=== PATIENT | male | born 1940 | race Caucasian/White ===

== ENCOUNTER 2022-09-16 10:34 | Inpatient (IN) ==
--- NOTE | 2022-09-16 11:26 | Emergency Department Note ---
Impression & Plan Abdominal ascites, Liver masses, Hyperbilirubinemia, Pulmonary edema, Elevated troponin I level, Abnormal EKG, Thrombocytopenia, Atrial fibrillation ED Provider Note NAME: SID GERONIMO AGE: 81 SEX: M : 1940 ARRIVES VIA: Walk-In INFORMANT: Patient, patient's significant other ED PROVIDER(S): Pablo Butts DO CHIEF COMPLAINT: Difficulty breathing HPI: The patient is a 81-year-old male who presented to the emergency department for an evaluation of difficulty breathing. The patient has symptoms over the course of the last week. The patient states he was seen by his primary care physician and started on an antibiotic. He had laboratory and radiographic studies done. He was told to go to the emergency department because of abn ormalities on his liver function studies. It was thought he may have pancreatitis. At this time the patient complains of a dry cough but sometimes he does not notice clear sputum. He denies having any abdominal pain or vomiting. He denies having any back pain. His significant other did notice t hat his face appears to be more swollen than usual. He does have some history of volume overload especially in the legs and takes Lasix. ROS: See above HPI for pertinent positives & negatives. A total of 10 systems reviewed and were otherwise negative. PAST MEDICAL HISTORY: See Below PAST SURGICAL HISTORY: See Below FAMILY HISTORY: See Below SOCIAL HISTORY: See Below HOME MEDICATIONS: See Below ALLERGIES: See Below VITALS: See Below PHYSICAL EXAMINATION: GENERAL: Patient is awake alert in no acute distress patient is resting comfortably and showing no signs of anxiety EYES: The conjunctivae are clear. The pupils are round and reactive. EARS, NOSE, MOUTH AND THROAT: The nose is without any evidence of any deformity. Mucous membranes are moist. Clear rhinorrhea was noted bilaterally. NECK: The neck is nontender and supple. RESPIRATORY: Diminished breath sounds are noted throughout. There was no wheezing but there was some conversational dyspnea. CARDIOVASCULAR: Regular rate and rhythm noted there no murmurs rubs or gallops normal S1 normal S2. GASTROINTESTINAL: The abdomen is soft. Abdomen is nontender. MUSCULOSKELETAL/EXTREMITIES: There is no evidence of gross deformity full range of motion is noted in the hips and shoulders. SKIN: Shielding was noted bilaterally. Skin was warm and dry. NEUROLOGIC: Patient is awake alert and oriented x 3. MEDICAL DECISION MAKING: The patient is a 81-year-old male who presented to the emergency department for an evaluation of difficulty breathing and cough. The patient's been having difficulty breathing and cough. Physical exam appear to be consistent with pulmonary edema. The patient's EKG showed some EKG changes which were not present on the previous tracing. Troponin was elevated. Initially I thought this could be secondary to a cardiac source however his LFTs were abnormal including his total and direct bilirubin. For this reason ultrasound of the right upper quadrant was obtained which appeared to be consistent with a mass in the liver. For this reason triple phase CT of the abdomen and pelvis was obtained to evaluate the liver. He appears to have ascites as well as multiple masses in the liver. The patient was treated with Lasix in the emergency department. He was reevaluated multiple times. I discussed patient's laboratory and radiographic studies with him. Clearly he may require further inpatient management to determine the cause of these multiple masses in his liver. For this reason I will discuss his case with the on-call [facility]ist. The patient was amenable to this plan. Triage Nursing notes reviewed. Prior medical records reviewed Vital Signs: reviewed and remarkable for elevated blood pressure. Differential diagnosis: Reactive airway disease, pneumonia, pneumothorax, COPD, CHF, infections, cardiac ischemia, pulmonary embolism, musculoskeletal, gastrointestinal, as well as other pathologies. ER treatment provided: See below Diagnostics interpreted by me: ECG: EKG was obtained in the emergency department. My interpretation is atrial fibrillation at 92 bpm. There were no PVCs noted. A new right bundle branch block was noted. This was compared to a tracing from November 07, 2013. The changes are new compared to the previous tracing. Cardiac Monitoring: An order was placed for continuous cardiac monitoring. The monitor shows a rate of 91 bpm with sinus rhythm. Laboratory studies: As stated above and show below. Imaging studies: See below. Radiographic imaging was reviewed by myself Consultation(s): I discussed this case with Zhanna who is on-call for the [facility]ist group. Past Med/Surg History Medical History (Updated 09/16/22 @ 16:49 by Laila Juárez PA-C) Gout Surgical History (Updated 09/16/22 @ 16:45 by Laila Juárez PA-C) History of selective laser trabeculoplasty Hx of cataract extraction Hx of hernia repair Hx of knee surgery Hx of sinus surgery Family History (Updated 09/16/22 @ 16:46 by Laila Juárez PA-C) Brother Heart disease Social History (Updated 09/16/22 @ 16:44 by Laila Juárez PA-C) Smoking Status: Former smoker Hx Alcohol Use: Yes Alcohol type: beer Alcohol type Comment: 2 cases a week Alcohol Intake Frequency: 4 or More x per/Week Hx Substance Use: No Preferred Language: Singaporean Communication Ability: Effective Feels Safe at Home: Yes Allergies Allergies Allergy/AdvReac Type Severity Reaction Status Date / Time No Known Allergies Allergy Unverified 09/16/22 16:52 Home Meds Home Medications Medication Instructions Recorded Confirmed amoxicillin 875 mg-potassium 1 tab PO DIRECTED 09/16/22 09/16/22 clavulanate 125 mg tablet azithromycin 250 mg tablet 250 mg PO DIRECTED 09/16/22 09/16/22 furosemide 40 mg tablet 40 mg PO DAILY PRN .Leg swelling, 09/16/22 09/16/22 fluid accumulation indomethacin 50 mg capsule 50 mg PO TID PRN Pain 09/16/22 09/16/22 [id number] acid 0.4 1 tab PO DAILY 09/16/22 09/16/22 mg-lycopene 300 mcg-lutein 250 mcg tablet (Centrum Silver) Results & Data (ED) Vital Signs Vital Signs - 24 hr 09/16/22 10:55 09/16/22 11:06 09/16/22 12:18 Temperature 36.6 C Temperature Source Temporal Artery Scan Pulse Rate 91 H 91 H Respiratory Rate 20 Blood Pressure 152/75 H Blood Pressure Mean 100 Blood Pressure Position Lying Pulse Oximetry 96 Oxygen Delivery Method Room Air Room Air Sepsis Recent Fever Within 48 Hours No Sepsis New/Unexplained Change in Mental Status No Sepsis Action Taken by Nursing No Action Required Home Medications Current Medication List: was personally reviewed by me Laboratory Data Attestation: I reviewed the patient's lab results. 09/16/22 11:20 09/16/22 11:20 Lab Results 09/16/22 09/16/22 09/16/22 Range/Units 11:20 11:20 11:20 WBC 3.62 L (4.8-10.8) K/ul RBC 4.36 L (4.70-6.10) M/uL Hgb 14.9 (14.0-18.0) g/dl Hct 42.7 (42.0-52.0) % MCV 97.9 (80.0-100.0) fL MCH 34.2 H (25.0-34.0) pg MCHC 34.9 (32.0-36.0) g/dL RDW Std Deviation 56.2 H (36.4-46.3) fL RDW Coeff of Irene 15.5 H (11.5-14.5) % Plt Count 65 L (130-400) K/uL MPV 10.4 (9.4-12.4) fL Immature Gran % (Auto) 0.3 % Neut % (Auto) 74.3 % Lymph % (Auto) 11.6 % [place] % (Auto) 11.0 % Eos % (Auto) 2.2 % Baso % (Auto) 0.6 % Neut # (Auto) 2.69 (1.40-6.50) K/uL Lymph # (Auto) 0.42 L (1.2-3.4) K/uL [place] # (Auto) 0.40 (0.11-0.59) K/uL Eos # (Auto) 0.08 (0-0.50) K/uL Baso # (Auto) 0.02 (0-0.2) K/uL Immature Gran # (Auto) 0.01 (0.01-0.20) K/uL Platelet Estimate Decreased L (Normal) PT Cancelled INR Cancelled APTT Cancelled PTT Ratio Cancelled VBG pH (7.36-7.41) VBG pCO2 (38-50) mmHg VBG pO2 mmHg VBG HCO3 mmol/L VBG O2 Saturation % VBG Base Excess mEq/L Sodium 134 L (136-145) mmol/L Potassium 4.1 (3.5-5.1) mmol/L Chloride 101 (98-107) mmol/L Carbon Dioxide 24 (21-32) mmol/L Anion Gap 9 (3-11) BUN 14 (6-23) mg/dl Creatinine 0.82 (0.6-1.4) mg/dl Est Cr Clr Drug Dosing 95.6 ml/min Est GFR ( Amer) 97.5 ml/min Est GFR (Non-Af Amer) 84.1 ml/min BUN/Creatinine Ratio 17.1 (10-20) Glucose 110 H (70-99(Fasting)) mg/dl Calcium 9.5 (8.5-10.1) mg/dl Magnesium 1.7 (1.7-2.4) mg/dl Total Bilirubin 7.4 H (0.2-1.0) mg/dl Direct Bilirubin 2.4 H (0-0.2) mg/dl AST 53 H (13-39) U/L ALT 26 (7-52) U/L Alkaline Phosphatase 136 H (34-104) U/L Troponin I High Sens 174.1 H* (0-20) pg/ml B-Natriuretic Peptide (0-100) pg/ml Total Protein 7.7 (6.0-8.3) gm/dl Albumin 3.5 (3.4-5.0) gm/dl Globulin 4.2 H (2.5-4.0) gm/dl Albumin/Globulin Ratio 0.8 L (0.9-2) Lipase 34 (11-82) U/L Urine Color Urine Appearance (Clear) Urine pH (4.5-7.5) Ur Specific [place] (1.000-1.030) Urine Protein (Negative) Urine Glucose (UA) (Negative) Urine Ketones (Negative) Urine Blood (Negative) Urine Nitrite (Negative) Urine Bilirubin (Negative) Urine Urobilinogen (Negative) Ur Leukocyte Esterase (Negative) Urine WBC (Auto) (0-5) /hpf Urine RBC (Auto) (0-4) /hpf U Hyaline Cast (Auto) (0-5) /lpf U Epithel Cells (Auto) (0-5) /lpf Urine Bacteria (Auto) (Negative) SARS-CoV-2 (PCR) (Negative) Influenza Type A (PCR) (Neg) Influenza Type B (PCR) (Neg) RSV (RT-PCR) (Neg) 09/16/22 09/16/22 09/16/22 Range/Units 11:20 11:20 11:22 WBC (4.8-10.8) K/ul RBC (4.70-6.10) M/uL Hgb (14.0-18.0) g/dl Hct (42.0-52.0) % MCV (80.0-100.0) fL MCH (25.0-34.0) pg MCHC (32.0-36.0) g/dL RDW Std Deviation (36.4-46.3) fL RDW Coeff of Irene (11.5-14.5) % Plt Count (130-400) K/uL MPV (9.4-12.4) fL Immature Gran % (Auto) % Neut % (Auto) % Lymph % (Auto) % [place] % (Auto) % Eos % (Auto) % Baso % (Auto) % Neut # (Auto) (1.40-6.50) K/uL Lymph # (Auto) (1.2-3.4) K/uL [place] # (Auto) (0.11-0.59) K/uL Eos # (Auto) (0-0.50) K/uL Baso # (Auto) (0-0.2) K/uL Immature Gran # (Auto) (0.01-0.20) K/uL Platelet Estimate (Normal) PT INR APTT PTT Ratio VBG pH 7.39 (7.36-7.41) VBG pCO2 40 (38-50) mmHg VBG pO2 33 mmHg VBG HCO3 24 mmol/L VBG O2 Saturation < 60.0 % VBG Base Excess -0.7 mEq/L Sodium (136-145) mmol/L Potassium (3.5-5.1) mmol/L Chloride (98-107) mmol/L Carbon Dioxide (21-32) mmol/L Anion Gap (3-11) BUN (6-23) mg/dl Creatinine (0.6-1.4) mg/dl Est Cr Clr Drug Dosing ml/min Est GFR ( Amer) ml/min Est GFR (Non-Af Amer) ml/min BUN/Creatinine Ratio (10-20) Glucose (70-99(Fasting)) mg/dl Calcium (8.5-10.1) mg/dl Magnesium (1.7-2.4) mg/dl Total Bilirubin (0.2-1.0) mg/dl Direct Bilirubin (0-0.2) mg/dl AST (13-39) U/L ALT (7-52) U/L Alkaline Phosphatase (34-104) U/L Troponin I High Sens (0-20) pg/ml B-Natriuretic Peptide 972 H (0-100) pg/ml Total Protein (6.0-8.3) gm/dl Albumin (3.4-5.0) gm/dl Globulin (2.5-4.0) gm/dl Albumin/Globulin Ratio (0.9-2) Lipase (11-82) U/L Urine Color Urine Appearance (Clear) Urine pH (4.5-7.5) Ur Specific [place] (1.000-1.030) Urine Protein (Negative) Urine Glucose (UA) (Negative) Urine Ketones (Negative) Urine Blood (Negative) Urine Nitrite (Negative) Urine Bilirubin (Negative) Urine Urobilinogen (Negative) Ur Leukocyte Esterase (Negative) Urine WBC (Auto) (0-5) /hpf Urine RBC (Auto) (0-4) /hpf U Hyaline Cast (Auto) (0-5) /lpf U Epithel Cells (Auto) (0-5) /lpf Urine Bacteria (Auto) (Negative) SARS-CoV-2 (PCR) NEGATIVE (Negative) Influenza Type A (PCR) Negative (Neg) Influenza Type B (PCR) Negative (Neg) RSV (RT-PCR) Negative (Neg) 09/16/22 09/16/22 Range/Units 13:44 14:29 WBC (4.8-10.8) K/ul RBC (4.70-6.10) M/uL Hgb (14.0-18.0) g/dl Hct (42.0-52.0) % MCV (80.0-100.0) fL MCH (25.0-34.0) pg MCHC (32.0-36.0) g/dL RDW Std Deviation (36.4-46.3) fL RDW Coeff of Irene (11.5-14.5) % Plt Count (130-400) K/uL MPV (9.4-12.4) fL Immature Gran % (Auto) % Neut % (Auto) % Lymph % (Auto) % [place] % (Auto) % Eos % (Auto) % Baso % (Auto) % Neut # (Auto) (1.40-6.50) K/uL Lymph # (Auto) (1.2-3.4) K/uL [place] # (Auto) (0.11-0.59) K/uL Eos # (Auto) (0-0.50) K/uL Baso # (Auto) (0-0.2) K/uL Immature Gran # (Auto) (0.01-0.20) K/uL Platelet Estimate (Normal) PT 16.9 H INR 1.6 H APTT 36.8 H PTT Ratio 1.3 VBG pH (7.36-7.41) VBG pCO2 (38-50) mmHg VBG pO2 mmHg VBG HCO3 mmol/L VBG O2 Saturation % VBG Base Excess mEq/L Sodium (136-145) mmol/L Potassium (3.5-5.1) mmol/L Chloride (98-107) mmol/L Carbon Dioxide (21-32) mmol/L Anion Gap (3-11) BUN (6-23) mg/dl Creatinine (0.6-1.4) mg/dl Est Cr Clr Drug Dosing ml/min Est GFR ( Amer) ml/min Est GFR (Non-Af Amer) ml/min BUN/Creatinine Ratio (10-20) Glucose (70-99(Fasting)) mg/dl Calcium (8.5-10.1) mg/dl Magnesium (1.7-2.4) mg/dl Total Bilirubin (0.2-1.0) mg/dl Direct Bilirubin (0-0.2) mg/dl AST (13-39) U/L ALT (7-52) U/L Alkaline Phosphatase (34-104) U/L Troponin I High Sens (0-20) pg/ml B-Natriuretic Peptide (0-100) pg/ml Total Protein (6.0-8.3) gm/dl Albumin (3.4-5.0) gm/dl Globulin (2.5-4.0) gm/dl Albumin/Globulin Ratio (0.9-2) Lipase (11-82) U/L Urine Color Yellow Urine Appearance Clear (Clear) Urine pH 7.0 (4.5-7.5) Ur Specific [place] 1.005 (1.000-1.030) Urine Protein Negative (Negative) Urine Glucose (UA) Negative (Negative) Urine Ketones Negative (Negative) Urine Blood Trace H (Negative) Urine Nitrite Negative (Negative) Urine Bilirubin Negative (Negative) Urine Urobilinogen Negative (Negative) Ur Leukocyte Esterase Negative (Negative) Urine WBC (Auto) 0 (0-5) /hpf Urine RBC (Auto) 0-4 (0-4) /hpf U Hyaline Cast (Auto) 0 (0-5) /lpf U Epithel Cells (Auto) 0-5 (0-5) /lpf Urine Bacteria (Auto) Negative (Negative) SARS-CoV-2 (PCR) (Negative) Influenza Type A (PCR) (Neg) Influenza Type B (PCR) (Neg) RSV (RT-PCR) (Neg) Administered Medications Discontinued Medications Furosemide (Furosemide 40 Mg/4 Ml Vial) 40 mg IV ONE ONE Stop: 09/16/22 12:48 Last Admin: 09/16/22 12:56 Dose: 40 mg Documented By: ARS Ioversol (Optiray 350 100ml) 85 ml IV ONCE ONE Stop: 09/16/22 15:02 Last Admin: 09/16/22 15:01 Dose: 85 ml Documented By: [facility] Imaging Data Radiologist's Impression: Chest X-Ray 09/16/22 11:06 XR chest 1V portable HISTORY: 81 years-old Male Dyspnea acute shortness of breath COMPARISON: None TECHNIQUE: AP view the chest FINDINGS: Cardiac silhouette is enlarged. Pulmonary vascular congestion with interstitial coarsening. Small pleural effusions with mild bibasilar densities. No pneumothorax. Degenerative changes of the shoulders and spine. Chronic left rib fractures. IMPRESSION: 1. Cardiomegaly with pulmonary vascular congestion and interstitial coarsening suggestive of pulmonary edema. 2. Small pleural effusions. ACT 112: Negative or not required by law. The above report was generated using voice recognition software. It may contain grammatical, syntax or spelling errors. Electronically signed by: Miguel Angel Harris M.D. 09/16/2022 11:47 AM Gallbladder Ultrasound 09/16/22 12:48 US gallbladder CLINICAL HISTORY: Elevated bilirubin. COMPARISON STUDY: No previous studies for comparison. FINDINGS: This exam is compromised by suboptimal penetration. No biliary ductal dilatation is identified. Common bile duct measures approximately 6 mm in caliber. No gallstones are identified. A small amount of fluid within the right upper quadrant is present. The liver is heterogeneous with with nodularity of the liver surface. Numerous hypoechoic foci within the liver measure up to 2.1 cm. Flow within the main portal vein appears diminished. This could be due to slow flow or occlusion. The pancreas is largely obscured. A 5.2 x 3.3 x 4.5 cm mass-like hypoechoic focus within the region of the pancreatic head is noted. There is no right hydronephrosis. The spleen is enlarged, measuring 14.8 cm in maximal dimension. IMPRESSION: 1. Heterogeneity of the liver suggestive of cirrhosis. Splenomegaly and ascites suggest portal hypertension. Diminished portal flow which could reflect slow flow or portal venous thrombus. Suspected hypoechoic hepatic lesions which may be neoplastic/metastatic. Liver protocol CT with and without contrast is r ecommended for further evaluation. 2. No gallstones or biliary ductal dilatation. 3. 5.2 cm mass-like hypoechoic focus within or adjacent to the pancreatic head. This could reflect a pancreatic mass or enlarged lymph node and can be assessed on CT. ACT 112: Positive. There are findings on this exam that require communication between the performing entity and the patient following Patient Test Result Info rmation Act ([place] Act 112) guidelines. Electronically signed by: Boris Kraus M.D. 09/16/2022 2:01 PM Abdomen/Pelvis CT 09/16/22 14:31 CT OF THE ABDOMEN AND PELVIS WITH AND WITHOUT CONTRAST LIVER PROTOCOL CLINICAL HISTORY: Elevated bilirubin. Abnormal ultrasound. COMPARISON STUDY: Right upper quadrant ultrasound performed earlier today. TECHNIQUE: Unenhanced, arterial and venous phase imaging was performed. Intravenous injection of 85 cc of Optiray 320 IV was uneventful. Automated exposure control was utilized for the study. A dose lowering technique was utilized adhering to the principles of ALARA. CT DOSE: 3111.63 mGycm FINDINGS: Imaged portions of the lower chest demonstrate moderate cardiomegaly with interstitial pulmonary edema and small bilateral pleural effusions. Old left-sided rib deformities are present. In addition, there is honeycombing within the lower lungs consistent with interstitial lung disease. No pneumatosis, free air or portal venous gas is present. Anasarca with body w all edema is noted. The liver is cirrhotic. Numerous hypodense hepatic masses are present. These correspond to the lesions on ultrasound. Index lateral segment lesion on axial image 25 of 98 of the portal venous phase measures 6.3 cm. An additional medial segment hepatic lesion measures 3 cm. No definite hypervascularity is noted although this could be technical and related to the phase of enhancement on the arterial phase portion of the study. There is no biliary or pancreatic ductal dilatation. The main, left and right portal veins are diminutive but likely patent. Moderate splenomegaly is noted. Small to moderate abdominal and pelvic ascites is present. Extensive collaterals are noted, including a splenorenal shunt as well as a collateral extending into a left inguinal hernia. Adrenal glands, kidneys and pancreas are normal. Possible pancreatic lesion on ultrasound is likely due to a duodenal diverticulum. There is no pancreatic ductal dilatation. Moderate aortoiliac atherosclerotic plaque is present. There is no evidence for a bowel obstruction. Colonic diverticulosis is present. There is no evidence for acute diverticulitis. The appendix is normal. Moderate bladder wall thickening. No acute fractures. No suspicious osseous lesions. IMPRESSION: 1. Cirrhosis with manifestations of portal hypertension including small to mo derate varices, splenomegaly and varices formation, including a splenorenal shunt and a collateral extending into a left inguinal hernia. Diminutive main, left and right portal veins which are likely patent. 2. Numerous hypodense hepatic masses. These are likely neoplastic and favor primary liver malignancy, such as hepatocellular carcinoma, with metastases or metastatic disease of unknown primary. Although regenerative nodules are technically within the differential, this is considered much less likely. Findings could be correlated with AFP level. Lateral segment lesions would likely be amenable to ultrasound-guided biopsy. 3. Cardiomegaly, pulmonary edema, small bilateral pleural effusions and anasarca. 4. Evidence for interstitial lung disease with honeycombing within the lung bases. 5. No bowel obstruction. No bowel wall thickening. Colonic diverticulosis without evidence for acute diverticulitis. 6. Bladder wall thickening which could be correlated with urinalysis. 7. Prominent retroperitoneal lymph nodes which are probably benign. ACT 112: Positive. There are findings on this exam that require communication between the performing entity and the patient following Patient Test Result Information Act ([place] Act 112) guidelines. Electronically signed by: Boris Kraus M.D. 09/16/2022 3:44 PM Discharge Plan Visit Data Chief Complaint: Abnormal Labs/Diagnostic Testing Stated Complaint: REF BY , ABNORMAL TEST ED Provider: Pablo Butts Discharge Problem: Abdominal ascites, Liver masses, Hyperbilirubinemia, Pulmonary edema, Elevated troponin I level, Abnormal EKG, Thrombocytopenia, Atrial fibrillation Patient Disposition: Being Evaluated by Hospitalist Forms Stand Alone Forms: My [facility] Prescriptions Prescriptions: No Action furosemide 40 mg Tablet 40 mg PO DAILY PRN (Reason: .Leg swelling, fluid accumulation) azithromycin 250 mg tablet 250 mg PO DIRECTED Rx Instructions: Do not start yet, ordered 09/15/2022 indomethacin 50 mg Capsule 50 mg PO TID PRN (Reason: Pain) Rx Instructions: administer with food or milk amoxicillin-pot clavulanate 875-125 mg tablet 1 tab PO DIRECTED Rx Instructions: Do not start yet, ordered 09/15/2022. Take 1 tab bid. Centrum Silver 0.4 mg-300 mcg- 250 mcg Tablet 1 tab PO DAILY Referrals Referrals: Mynor Kaminski MD [Primary Care Provider] -
--- NOTE | 2022-09-16 11:49 | XRay Report ---
XR chest 1V portable HISTORY: 81 years-old Male Dyspnea acute shortness of breath COMPARISON: None TECHNIQUE: AP view the chest FINDINGS: Cardiac silhouette is enlarged. Pulmonary vascular congestion with interstitial coarsening. Small ple ural effusions with mild bibasilar densities. No pneumothorax. Degenerative changes of the shoulders and spine. Chronic left rib fractures. IMPRESSION: 1. Cardiomegaly with pulmonary vascular congestion and interstitial coarsening suggestive of pulmonar y edema. 2. Small pleural effusions. ACT 112: Negative or not required by law. The above report was generated using voice recognition software. It may contain grammatical, syntax o r spelling errors. Electronically signed by: Miguel Angel Harris M.D. 09/16/2022 11:47 AM
[2022-09-16 11:55] LABS: Base Excess VBG -0.7 mEq/L; HCO3 VBG 24 mmol/L; Oxygen Saturation VBG < 60.0 %; PCO2 VBG 40 mmHg (38-50); PO2 VBG 33 mmHg; pH VBG 7.39 (7.36-7.41)
[2022-09-16 12:21] LABS: Hematocrit (blood only) 42.7 % (42.0-52.0); Hemoglobin 14.9 g/dl (14.0-18.0); White Blood Count 3.62 K/ul (4.8-10.8)
[2022-09-16 12:24] LABS: Albumin Globulin Ratio 0.8 (0.9-2); Albumin Level 3.5 gm/dl (3.4-5.0); BUN Creatinine Ratio 17.1 (10-20); Bilirubin Direct 2.4 mg/dl (0-0.2); Bilirubin,Total 7.4 mg/dl (0.2-1.0); Calcium 9.5 mg/dl (8.5-10.1); Creatinine Clr Calc Pharmacy 95.6 ml/min; Est GFR (African American) 97.5 ml/min; Est GFR (Non-African American) 84.1 ml/min; Globulin 4.2 gm/dl (2.5-4.0); Magnesium 1.7 mg/dl (1.7-2.4); Potassium 4.1 mmol/L (3.5-5.1); Total Protein 7.7 gm/dl (6.0-8.3)
[2022-09-16 12:30] LABS: Basophils # (auto) 0.02 K/uL (0-0.2); Basophils % (auto) 0.6 %; Eosinophils # (auto) 0.08 K/uL (0-0.50); Eosinophils % (auto) 2.2 %; Immature Granulocytes # (auto) 0.01 K/uL (0.01-0.20); Immature Granulocytes % (auto) 0.3 %; Lymphocytes # (auto) 0.42 K/uL (1.2-3.4); Lymphocytes % (auto) 11.6 %; Mean Corpuscular Hemoglobin 34.2 pg (25.0-34.0); Mean Corpuscular Hgb Conc 34.9 g/dL (32.0-36.0); Mean Corpuscular Volume 97.9 fL (80.0-100.0); Mean Platelet Volume 10.4 fL (9.4-12.4); Neutrophils # (auto) 2.69 K/uL (1.40-6.50); Neutrophils % (auto) 74.3 %; Platelet Count 65 K/uL (130-400); Platelet Estimate Decreased (Normal); RDW Coefficient of Variation 15.5 % (11.5-14.5); RDW Standard Deviation 56.2 fL (36.4-46.3); Red Blood Count 4.36 M/uL (4.70-6.10)
[2022-09-16 12:36] LABS: Troponin I High Sensitivity 174.1 pg/ml (0-20)
[2022-09-16] MEDS ORDERED: FUROSEMIDE 40 MG/4 ML VIAL IV ONE (12:47)
[2022-09-16 13:43] LABS: Influenza A virus by PCR Negative (Neg); Influenza B virus by PCR Negative (Neg); RSV by PCR Negative (Neg); SARS CoV2 RNA(COVID-19) Ceph NEGATIVE (Negative)
--- NOTE | 2022-09-16 14:03 | Ultrasound Report ---
US gallbladder CLINICAL HISTORY: Elevated bilirubin. COMPARISON STUDY: No previous studies for comparison. FINDINGS: This exam is compromised by suboptimal penetration. No biliary ductal dilatation is identif ied. Common bile duct measures approximately 6 mm in caliber. No gallstones are identified. A small a mount of fluid within the right upper quadrant is present. The liver is heterogeneous with with nodul arity of the liver surface. Numerous hypoechoic foci within the liver measure up to 2.1 cm. Flow with in the main portal vein appears diminished. This could be due to slow flow or occlusion. The pancreas is largely obscured. A 5.2 x 3.3 x 4.5 cm mass-like hypoechoic focus within the region of the pancre atic head is noted. There is no right hydronephrosis. The spleen is enlarged, measuring 14.8 cm in ma ximal dimension. IMPRESSION: 1. Heterogeneity of the liver suggestive of cirrhosis. Splenomegaly and ascites suggest portal hypert ension. Diminished portal flow which could reflect slow flow or portal venous thrombus. Suspected hyp oechoic hepatic lesions which may be neoplastic/metastatic. Liver protocol CT with and without contra st is recommended for further evaluation. 2. No gallstones or biliary ductal dilatation. 3. 5.2 cm mass-like hypoechoic focus within or adjacent to the pancreatic head. This could reflect a pancreatic mass or enlarged lymph node and can be assessed on CT. ACT 112: Positive. There are findings on this exam that require communication between the performing entity and the patient following Patient Test Result Information Act ([place] Act 112) guidelines. Electronically signed by: Boris Kraus M.D. 09/16/2022 2:01 PM
[2022-09-16 14:06] LABS: Appearance Urine Clear (Clear); Bacteria Urine Automated Negative (Negative); Bilirubin Urine Negative (Negative); Blood Urine Trace (Negative); Cast Urine Automated 0 /lpf (0-5); Color Urine Yellow; Epithelial Cell Urine Auto 0-5 /lpf (0-5); Glucose Urine UA Negative (Negative); Ketones Urine Negative (Negative); Leukocyte Esterase Urine Negative (Negative); Nitrite Urine Negative (Negative); Protein Urine Negative (Negative); RBC Urine Automated 0-4 /hpf (0-4); Specific Gravity Urine 1.005 (1.000-1.030); Urobilinogen Urine Negative (Negative); WBC Urine Automated 0 /hpf (0-5)
[2022-09-16] MEDS ORDERED: OPTIRAY 350 100ml IV ONE (15:01)
--- NOTE | 2022-09-16 15:45 | CT Scan Report ---
CT OF THE ABDOMEN AND PELVIS WITH AND WITHOUT CONTRAST LIVER PROTOCOL CLINICAL HISTORY: Elevated bilirubin. Abnormal ultrasound. COMPARISON STUDY: Right upper quadrant ultrasound performed earlier today. TECHNIQUE: Unenhanced, arterial and venous phase imaging was performed. Intravenous injection of 85 c c of Optiray 320 IV was uneventful. Automated exposure control was utilized for the study. A dose l owering technique was utilized adhering to the principles of ALARA. CT DOSE: 3111.63 mGycm FINDINGS: Imaged portions of the lower chest demonstrate moderate cardiomegaly with interstitial pulm onary edema and small bilateral pleural effusions. Old left-sided rib deformities are present. In add ition, there is honeycombing within the lower lungs consistent with interstitial lung disease. No pneumatosis, free air or portal venous gas is present. Anasarca with body wall edema is noted. The liver is cirrhotic. Numerous hypodense hepatic masses are present. These correspond to the lesions o n ultrasound. Index lateral segment lesion on axial image 25 of 98 of the portal venous phase measure s 6.3 cm. An additional medial segment hepatic lesion measures 3 cm. No definite hypervascularity is noted although this could be technical and related to the phase of enhancement on the arterial phase portion of the study. There is no biliary or pancreatic ductal dilatation. The main, left and right p ortal veins are diminutive but likely patent. Moderate splenomegaly is noted. Small to moderate abdom inal and pelvic ascites is present. Extensive collaterals are noted, including a splenorenal shunt as well as a collateral extending into a left inguinal hernia. Adrenal glands, kidneys and pancreas are normal. Possible pancreatic lesion on ultrasound is likely due to a duodenal diverticulum. There is no pancreatic ductal dilatation. Moderate aortoiliac atherosclerotic plaque is present. There is no e vidence for a bowel obstruction. Colonic diverticulosis is present. There is no evidence for acute di verticulitis. The appendix is normal. Moderate bladder wall thickening. No acute fractures. No suspic ious osseous lesions. IMPRESSION: 1. Cirrhosis with manifestations of portal hypertension including small to moderate varices, splenome tana and varices formation, including a splenorenal shunt and a collateral extending into a left ingu inal hernia. Diminutive main, left and right portal veins which are likely patent. 2. Numerous hypodense hepatic masses. These are likely neoplastic and favor primary liver malignancy, such as hepatocellular carcinoma, with metastases or metastatic disease of unknown primary. Although regenerative nodules are technically within the differential, this is considered much less likely. F indings could be correlated with AFP level. Lateral segment lesions would likely be amenable to ultra sound-guided biopsy. 3. Cardiomegaly, pulmonary edema, small bilateral pleural effusions and anasarca. 4. Evidence for interstitial lung disease with honeycombing within the lung bases. 5. No bowel obstruction. No bowel wall thickening. Colonic diverticulosis without evidence for acute diverticulitis. 6. Bladder wall thickening which could be correlated with urinalysis. 7. Prominent retroperitoneal lymph nodes which are probably benign. ACT 112: Positive. There are findings on this exam that require communication between the performing entity and the patient following Patient Test Result Information Act ([place] Act 112) guidelines. Electronically signed by: Boris Kraus M.D. 09/16/2022 3:44 PM
[2022-09-16 15:48] LABS: INR 1.6 (0.9-1.1); Partial Thromboplastin Ratio 1.3; Partial Thromboplastin Time 36.8 Seconds (21.0-31.0); Prothrombin Time 16.9 Seconds (9.0-12.0)
--- NOTE | 2022-09-16 16:26 | History & Physical Report ---
Date of Service September 16, 2022 Assessment & Plan (1) Anasarca: (2) Liver masses: (3) Hyperbilirubinemia: (4) Pulmonary edema: (5) Afib: (6) Elevated troponin I level: (7) Abnormal EKG: (8) Thrombocytopenia: (9) Alcohol abuse: Plan This is a 81-year-old male with significant past medical history of gout who presents to ER secondary to referral by PCP to abnormal labs. Patient reported ongoing shortness of breath for approximately the past 6 weeks. He was seen by PCP on 09/15 and underwent lab work which revealed hyperbilirubinemia and elevated BNP. He also was hypoxic with exertion in outpatient clinic and was referred to ED. In ED patient had bilirubin of 7.4, direct 2.4, AST 53 and alk phos 136. He did have elevated BNP at 972. His platelet count was 67 and had elevated troponin at 174.1. EKG revealed new onset atrial fibrillation, rate controlled. CT a/p: 1. Cirrhosis with manifestations of portal hypertension including small to moderate varices, splenomegaly and varices formation, including a splenorenal shunt and a collateral extending into a left inguinal hernia. Diminutive main, left and right portal veins which are likely patent. 2. Numerous hypodense hepatic masses. These are likely neoplastic and favor primary liver malignancy, such as hepatocellular carcinoma, with metastases or metastatic disease of unknown primary. Although regenerative nodules are technically within the differential, this is considered much less likely. Findings could be correlated with AFP level. Lateral segment lesions would likely be amenable to ultrasound-guided biopsy. 3. Cardiomegaly, pulmonary edema, small bilateral pleural effusions and savi sarca. Pt has lifelong hx of alcohol abuse with 2 cases of beer/wk. Anasarca Pulmonary Edema Elevated LFTS Hyperbilirubinemia Liver Masses Portal HTN on imaging admit to Tele Continue IV furosemide 40 mg twice daily Strict I's and O's, daily weights Fluid restriction 1800 mL Consult GI, meld 21 Recommend alcohol cessation Per imaging lateral liver masses likely amenable to biopsy, will defer to gastroenterology Obtain AFP, CA 199 and CEA in a.m., INR No evidence of hepatic encephalopathy on exam Rate controlled atrial fibrillation, new onset Elevated troponin Pulmonary edema Cycle troponins, patient denies chest pain, ecg w/o st t wave change Obtain echocardiogram Possible component of CHF on top of likely decompensated cirrhosis Continue diuresis, strict I's and O's Initiated Toprol tartrate 25 mg twice daily Given underlying cirrhosis and alcohol use patient likely poor candidate for anticoagulation, will defer to cardiology Thrombocytopenia likely 2/2 liver failure follow cbc hold heparin if < 50k Alcohol abuse awss protocol with gabapentin and prn IV ativan daily thiamine and folic acid alcohol cessation advised DVT ppx: SQ Heparin for now, but hold if PLT falls below < 50k DISPO: tele FULL CODE - discussed with pt and who wish to review living will paper work, defer to CM PCP: Yamilex Pt was seen and examined in collaboration with Dr. Ly, please see addendum A total of 80 minutes were spent with greater than 50% of that time face to face with the patient, personally reviewing all current laboratories, imaging studies, past medication reconciliation, outpatient chart review, and discussion with specialists to collaborate care for the patient with attending. Please see attending documentation for corrections and/or additions. History of Present Illness Chief Complaint: Referred by PCP due to abnormal labs. Primary Care Provider: Mynor Kaminski MD This is a 81-year-old male with significant past medical history of gout who presents to ER secondary to referral by PCP to abnormal labs. He was seen by KATIE yesterday secondary to generally feeling unwell for the past 6 weeks. Apparently had been sick 6 weeks ago and he has had a persistent cough and progressive shortness of breath. He also has chronic lower extremity edema. He presented to PCP and had blood work done which revealed an elevated bilirubin of 5.5, AST 58, alk phos 147, thrombocytopenia 69 and BNP at 524. He apparently was hypoxic with exertion in office but declined ER evaluation. He received IM Rocephin and was prescribed oral antibiotics. Due to elevated bilirubin he was referred to ED today. Pt reports he had covid in March of 2022 and was SOB and went away, and then it started again approx 6 weeks ago. SOB is mostly with exertion. If he is resting he does not feel SOB. is at bedside and she reports he seems SOB when he lays in bed at night. He denies orthopnea or PND, but starts he prefers the recliner at night. He further complains of sinus pain/pressure and swelling under eyes. He was blaming this on a sinus infection. denies confusion. He complains of difficulty urinating but denies dysuria, increased frequency or urgency. Pt denies f/c/s,dizziness, lightheaded, chest pain, cough, n/v/d, abd pain. + Weight gain of 25lbs in the past couple weeks. He reports feeling off balance and bad knees. He occasionally uses a cane. He fell 3 weeks ago but tripped over a carpet. Otherwise no falls. Overall appetite isn't great. reports he drinks to much so he doesn't eat. He has drank beer since he has been 14, 2 cases a week. He denies hx of hepatitis. He denies frequent use of tylenol. Allergies Allergy/AdvReac Type Severity Reaction Status Date / Time No Known Allergies Allergy Unverified 09/16/22 16:52 Home Medications Medication Instructions Recorded Confirmed Type amoxicillin 875 mg-potassium 1 tab PO DIRECTED 09/16/22 09/16/22 History clavulanate 125 mg tablet azithromycin 250 mg tablet 250 mg PO DIRECTED 09/16/22 09/16/22 History furosemide 40 mg tablet 40 mg PO DAILY PRN .Leg swelling, 09/16/22 09/16/22 History fluid accumulation indomethacin 50 mg capsule 50 mg PO TID PRN Pain 09/16/22 09/16/22 History pfjlytob-ftr-gkgzp acid 0.4 1 tab PO DAILY 09/16/22 09/16/22 History mg-lycopene 300 mcg-lutein 250 mcg tablet (Centrum Silver) Past Med/Surg History Medical History (Updated 09/16/22 @ 17:12 by Laila Juárez PA-C) Gout Surgical History (Updated 09/16/22 @ 16:45 by Laila Juárez PA-C) History of selective laser trabeculoplasty Hx of cataract extraction Hx of hernia repair Hx of knee surgery Hx of sinus surgery Family History (Updated 09/16/22 @ 16:46 by Laila Juárez PA-C) Brother Heart disease Social History (Updated 09/16/22 @ 16:44 by Laila Juárez PA-C) Smoking Status: Former smoker Hx Alcohol Use: Yes Alcohol type: beer Alcohol type Comment: 2 cases a week Alcohol Intake Frequency: 4 or More x per/Week Hx Substance Use: No Preferred Language: Indonesian Communication Ability: Effective Feels Safe at Home: Yes Review of Systems Review of Systems: All systems reviewed & are unremarkable except as noted in HPI & below Physical Exam Physical Exam: please refer to Dr. Ly addendum for physical exam findings. Results & Data Results & Data ([facility]) Vital Signs (Past 12 Hours) Vital Signs Temp Pulse Resp BP Pulse Ox O2 Del Method 09/16/22 12:18 91 H 09/16/22 11:06 Room Air 09/16/22 10:55 36.6 C 91 H 20 152/75 H 96 Room Air Diagnostic Findings Chest X-Ray 09/16/22 11:06 XR chest 1V portable HISTORY: 81 years-old Male Dyspnea acute shortness of breath COMPARISON: None TECHNIQUE: AP view the chest FINDINGS: Cardiac silhouette is enlarged. Pulmonary vascular congestion with interstitial coarsening. Small pleural effusions with mild bibasilar densities. No pneumothorax. Degenerative changes of the shoulders and spine. Chronic left rib fractures. IMPRESSION: 1. Cardiomegaly with pulmonary vascular congestion and interstitial coarsening suggestive of pulmonary edema. 2. Small pleural effusions. ACT 112: Negative or not required by law. The above report was generated using voice recognition software. It may contain grammatical, syntax or spelling errors. Electronically signed by: Miguel Angel Harris M.D. 09/16/2022 11:47 AM Gallbladder Ultrasound 09/16/22 12:48 US gallbladder CLINICAL HISTORY: Elevated bilirubin. COMPARISON STUDY: No previous studies for comparison. FINDINGS: This exam is compromised by suboptimal penetration. No biliary ductal dilatation is identified. Common bile duct measures approximately 6 mm in caliber. No gallstones are identified. A small amount of fluid within the right upper quadrant is present. The liver is heterogeneous with with nodularity of the liver surface. Numerous hypoechoic foci within the liver measure up to 2.1 cm. Flow within the main portal vein appears diminished. This could be due to slow flow or occlusion. The pancreas is largely obscured. A 5.2 x 3.3 x 4.5 cm mass-like hypoechoic focus within the region of the pancreatic head is noted. There is no right hydronephrosis. The spleen is enlarged, measuring 14.8 cm in maximal dimension. IMPRESSION: 1. Heterogeneity of the liver suggestive of cirrhosis. Splenomegaly and ascites suggest portal hypertension. Diminished portal flow which could reflect slow flow or portal venous thrombus. Suspected hypoechoic hepatic lesions which may be neoplastic/metastatic. Liver protocol CT with and without contrast is recommended for further evaluation. 2. No gallstones or biliary ductal dilatation. 3. 5.2 cm mass-like hypoechoic focus within or adjacent to the pancreatic head. This could reflect a pancreatic mass or enlarged lymph node and can be assessed on CT. ACT 112: Positive. There are findings on this exam that require communication between the performing entity and the patient following Patient Test Result Information Act ([place] Act 112) guidelines. Electronically signed by: Boris Kraus M.D. 09/16/2022 2:01 PM Abdomen/Pelvis CT 09/16/22 14:31 CT OF THE ABDOMEN AND PELVIS WITH AND WITHOUT CONTRAST LIVER PROTOCOL CLINICAL HISTORY: Elevated bilirubin. Abnormal ultrasound. COMPARISON STUDY: Right upper quadrant ultrasound performed earlier today. TECHNIQUE: Unenhanced, arterial and venous phase imaging was performed. Intravenous injection of 85 cc of Optiray 320 IV was uneventful. Automated exposure control was utilized for the study. A dose lowering technique was utilized adhering to the principles of ALARA. CT DOSE: 3111.63 mGycm FINDINGS: Imaged portions of the lower chest demonstrate moderate cardiomegaly with interstitial pulmonary edema and small bilateral pleural effusions. Old left-sided rib deformities are present. In addition, there is honeycombing within the lower lungs consistent with interstitial lung disease. No pneumatosis, free air or portal venous gas is present. Anasarca with body wall edema is noted. The liver is cirrhotic. Numerous hypodense hepatic masses are present. These correspond to the lesions on ultrasound. Index lateral segment lesion on axial image 25 of 98 of the portal venous phase measures 6.3 cm. An additional medial segment hepatic lesion measures 3 cm. No definite hypervascularity is noted although this could be technical and related to the phase of enhancement on the arterial phase portion of the study. There is no biliary or pancreatic ductal dilatation. The main, left and right portal veins are diminutive but likely patent. Moderate splenomegaly is noted. Small to moderate abdominal and pelvic ascites is present. Extensive collaterals are noted, including a splenorenal shunt as well as a collateral extending into a left inguinal hernia. Adrenal glands, kidneys and pancreas are normal. Possible pancreatic lesion on ultrasound is likely due to a duodenal diverticulum. There is no pancreatic ductal dilatation. Moderate aortoiliac atherosclerotic plaque is present. There is no evidence for a bowel obstruction. Colonic diverticulosis is present. There is no evidence for acute diverticulitis. The appendix is normal. Moderate bladder wall thickening. No acute fractures. No suspicious osseous lesions. IMPRESSION: 1. Cirrhosis with manifestations of portal hypertension including small to moderate varices, splenomegaly and varices formation, including a splenorenal shunt and a collateral extending into a left inguinal hernia. Diminutive main, left and right portal veins which are likely patent. 2. Numerous hypodense hepatic masses. These are likely neoplastic and favor primary liver malignancy, such as hepatocellular carcinoma, with metastases or metastatic disease of unknown primary. Although regenerative nodules are technically within the differential, this is considered much less likely. Findings could be correlated with AFP level. Lateral segment lesions would likely be amenable to ultrasound-guided biopsy. 3. Cardiomegaly, pulmonary edema, small bilateral pleural effusions and anasarca. 4. Evidence for interstitial lung disease with honeycombing within the lung bases. 5. No bowel obstruction. No bowel wall thickening. Colonic diverticulosis without evidence for acute diverticulitis. 6. Bladder wall thickening which could be correlated with urinalysis. 7. Prominent retroperitoneal lymph nodes which are probably benign. ACT 112: Positive. There are findings on this exam that require communication between the performing entity and the patient following Patient Test Result Information Act ([place] Act 112) guidelines. Electronically signed by: Boris Kraus M.D. 09/16/2022 3:44 PM Medications Administered Medication List Discontinued Medications Furosemide (Furosemide 40 Mg/4 Ml Vial) 40 mg IV ONE ONE Stop: 09/16/22 12:48 Last Admin: 09/16/22 12:56 Dose: 40 mg Documented By: CHRIS Ioversol (Optiray 350 100ml) 85 ml IV ONCE ONE Stop: 09/16/22 15:02 Last Admin: 09/16/22 15:01 Dose: 85 ml Documented By: CHAYITO ECG Rate (beats per minute): 92 Additional Comments: afib, RBBB, QTC 514ms COVID-19 Results Results COVID-19 Adm Lab Results: RBC 4.36 M/uL (4.70-6.10) L 09/16/22 WBC 3.62 K/ul (4.8-10.8) L 09/16/22 Hgb 14.9 g/dl (14.0-18.0) 09/16/22 Hct 42.7 % (42.0-52.0) 09/16/22 Plt Count 65 K/uL (130-400) L 09/16/22 Neutrophils (%) (Auto) 74.3 % 09/16/22 Lymphocytes (%) (Auto) 11.6 % 09/16/22 Monocytes # (Auto) 0.40 K/uL (0.11-0.59) 09/16/22 Eosinophils # (Auto) 0.08 K/uL (0-0.50) 09/16/22 Immature Granulocyte % (Auto) 0.3 % 09/16/22 Neutrophils # (Auto) 2.69 K/uL (1.40-6.50) 09/16/22 Lymphocytes # (Auto) 0.42 K/uL (1.2-3.4) L 09/16/22 Monocytes # (Auto) 0.40 K/uL (0.11-0.59) 09/16/22 Eosinophils # (Auto) 0.08 K/uL (0-0.50) 09/16/22 Basophils # (Auto) 0.02 K/uL (0-0.2) 09/16/22 Immature Granulocyte # (Auto) 0.01 K/uL (0.01-0.20) 3 Na 134 mmol/L (136-145) L 09/16/22 K 4.1 mmol/L (3.5-5.1) 09/16/22 Cl 101 mmol/L (98-107) 09/16/22 CO2 24 mmol/L (21-32) 09/16/22 Anion Gap 9 (3-11) 09/16/22 BUN 14 mg/dl (6-23) 09/16/22 Creatinine 0.82 mg/dl (0.6-1.4) 09/16/22 BUN/Creatinine Ratio 17.1 (10-20) 09/16/22 Glucose Level 110 mg/dl (70-99(Fasting)) H 09/16/22 Ca 9.5 mg/dl (8.5-10.1) 09/16/22 Total Bilirubin 7.4 mg/dl (0.2-1.0) H 09/16/22 Direct Bilirubin 2.4 mg/dl (0-0.2) H 09/16/22 AST/SGOT 53 U/L (13-39) H 09/16/22 ALT/SGPT 26 U/L (7-52) 09/16/22 Alkaline Phosphatase 136 U/L (34-104) H 09/16/22 Total Protein 7.7 gm/dl (6.0-8.3) 09/16/22 Albumin 3.5 gm/dl (3.4-5.0) 09/16/22 Globulin 4.2 gm/dl (2.5-4.0) H 09/16/22 Albumin/Globulin Ratio 0.8 (0.9-2) L 09/16/22 PTT 36.8 Seconds (21.0-31.0) H 09/16/22 INR 1.6 (0.9-1.1) H 09/16/22 COVID-19 PCR NEGATIVE (Negative) 09/16/22 Influenza Virus Type A (PCR) Negative (Neg) 09/16/22 Influenza Virus Type B (PCR) Negative (Neg) 09/16/22 Chest X-Ray 09/16/22 Code Status & VTE Plan Code Status FULL CODE VTE Prophylaxis Plan Reason for no VTE drug order: Contraindicated Supervising Physician Co-Signing Physician Notes Patient is a 81-year-old male with history of gout, alcohol use disorder and no other significant past medical history presents with history of worsening shortness of breath, weight gain, leg edema since 6 to 8 weeks duration. Patient was evaluated by PCP and was found to have abnormal LFTs and chronic thrombocytopenia. Patient was sent to ED for further evaluation. Patient admits to drinking alcohol since many years. Please review HPI for complete details of presentation. Blood work, imaging studies, EKG reviewed. Physical Exam: Vitals signs as noted above General Appearance:Obese, no apparent distress Head: normocephalic, Atraumatic Eyes: normal inspection, EOMI, +Icteric Neck: supple, Trachea midline Respiratory/Chest: Normal breath sounds, basal crackles,, No accessory muscle use Cardiovascular: Irregularly irregular, No murmur Abdomen/GI:Soft, Non tender, distended, bowel sounds present Extremities/Musculoskeletal:normal inspection, 3+ B/L LE edema Neurologic/Psych:AAOX3, grossly no focal neurological deficits Skin: normal color, warm, + jaundice Anasarca Hepatic masses Likely hepatocellular carcinoma Possible pancreatic mass Alcohol use disorder Atrial fibrillation newly diagnosed, rate controlled Dysuria Troponin elevation likely secondary to volume overload We will check tumor markers, resting echo, bladder scan as needed to rule out retention Low-sodium diet, fluid restriction IV Lasix, Clayton catheter placed We will get cardiology, GI involved We will consider oncology evaluation when appropriate On gabapentin protocol, thiamine, folic acid Monitor for alcohol withdrawal I personally reviewed the record. Patient is interviewed and examined at bedside. Patient's care is coordinated with Laila Juárez PA-C. Please refer to the documentation above for details of patient's presentation and for discussion of other issues. (4) Pulmonary edema Chronicity: acute Qualified Code(s): J81.0 - Acute pulmonary edema
[2022-09-16] MEDS ORDERED: LORazepam 2 MG/1 ML VIAL IV PRN (18:41)
[2022-09-16] MEDS ORDERED: GABAPENTIN 600 MG TAB PO ONE (18:41)
[2022-09-16] MEDS ORDERED: ACETAMINOPHEN 325 MG TAB PO PRN (18:41)
[2022-09-16] MEDS ORDERED: LEVALBUTEROL HCL 0.63 MG/3 ML NEB NEB PRN (18:41)
[2022-09-16] MEDS ORDERED: ALUMINUM/MAGNESIUM SUSP 30 ML UDC PO PRN (18:41)
[2022-09-16] MEDS ORDERED: PROMETHAZINE HCL 12.5 MG in SODIUM CHLORIDE 0.9% 50 ML IV PRN (18:41)
[2022-09-16] MEDS ORDERED: POLYETHYLENE (MIRALAX) 17 GM PACK PO PRN (18:41)
[2022-09-16] MEDS ORDERED: GABAPENTIN 1200MG ALCOHOL WITHDRAWAL LOAD PO STA (18:41)
[2022-09-16] MEDS ORDERED: MAGNESIUM HYDROXIDE SUSP 30 ML UDC PO PRN (18:41)
[2022-09-16] MEDS: FUROSEMIDE 40 MG/4 ML VIAL IV SCH (21:20)
[2022-09-16] MEDS: METOPROLOL TARTRATE 25 MG TAB PO SCH (21:20)
[2022-09-16] MEDS: HEPARIN SOD 5,000 UNIT/0.5 ML VIAL SQ SCH (21:24)
[2022-09-17] MEDS: GABAPENTIN 600 MG TAB PO SCH ×4 (00:46→21:25)
[2022-09-17] MEDS: HEPARIN SOD 5,000 UNIT/0.5 ML VIAL SQ SCH (06:09)
[2022-09-17 06:35] LABS: Hematocrit (blood only) 37.7 % (42.0-52.0); Hemoglobin 13.1 g/dl (14.0-18.0); Mean Corpuscular Hemoglobin 33.9 pg (25.0-34.0); Mean Corpuscular Hgb Conc 34.7 g/dL (32.0-36.0); Mean Corpuscular Volume 97.7 fL (80.0-100.0); Mean Platelet Volume 10.2 fL (9.4-12.4); Platelet Count 69 K/uL (130-400); RDW Coefficient of Variation 15.4 % (11.5-14.5); RDW Standard Deviation 54.6 fL (36.4-46.3); Red Blood Count 3.86 M/uL (4.70-6.10); White Blood Count 4.03 K/ul (4.8-10.8)
[2022-09-17 07:37] LABS: INR 1.6 (0.9-1.1); Prothrombin Time 16.9 Seconds (9.0-12.0)
[2022-09-17 08:12] LABS: Albumin Globulin Ratio 0.9 (0.9-2); Albumin Level 3.1 gm/dl (3.4-5.0); BUN Creatinine Ratio 18.2 (10-20); Bilirubin,Total 6.3 mg/dl (0.2-1.0); Calcium 8.6 mg/dl (8.5-10.1); Est GFR (African American) 94.7 ml/min; Est GFR (Non-African American) 81.7 ml/min; Globulin 3.4 gm/dl (2.5-4.0); Magnesium 1.7 mg/dl (1.7-2.4); Potassium 3.8 mmol/L (3.5-5.1); Total Protein 6.5 gm/dl (6.0-8.3)
[2022-09-17 09:16] LABS: Basophils # (auto) 0.02 K/uL (0-0.2); Basophils % (auto) 0.5 %; Eosinophils # (auto) 0.14 K/uL (0-0.50); Eosinophils % (auto) 3.5 %; Immature Granulocytes # (auto) 0.02 K/uL (0.01-0.20); Immature Granulocytes % (auto) 0.5 %; Lymphocytes # (auto) 0.72 K/uL (1.2-3.4); Lymphocytes % (auto) 17.9 %; Monocytes # (auto) 0.55 K/uL (0.11-0.59); Monocytes % (auto) 13.6 %; Neutrophils # (auto) 2.58 K/uL (1.40-6.50)
[2022-09-17] MEDS: FUROSEMIDE 40 MG/4 ML VIAL IV SCH ×2 (09:49→16:29)
[2022-09-17] MEDS: THIAMINE HCL 100 MG TAB PO SCH (09:50)
[2022-09-17] MEDS: FOLIC ACID 1 MG TAB PO SCH (09:50)
[2022-09-17] MEDS: METOPROLOL TARTRATE 25 MG TAB PO SCH ×2 (09:50→21:25)
[2022-09-17] MEDS: CEROVITE ADV FORMULA TAB PO SCH (09:50)
--- NOTE | 2022-09-17 10:03 | Gastrointestinal Consultation ---
Date of Consultation September 17, 2022 Assessment & Plan (1) Alcohol abuse: (2) Decompensated hepatic cirrhosis: Most likely alcoholic cirrhosis but will check labs to r/o autoimmune processes including Celiac. (3) Liver lesion: ? HCC vs. metastatic liver disease unknown primary site. Plan 1. US guided bx of liver lesion. 2. Paracentesis w fluid analysis including cell count, culture, albumin, total protein and cytology. Albumin 265gms before/after. 3. Keep NPO today. If unable to reach liver lesion via US, then may consider EUS approach. 4. Discussed pathophysiology of cirrhosis and importance of alcohol abstention w the patient. 5. Will need OP GI f/u for management of cirrhosis, EGD, colonoscopy (discussed w pt who doesn't think he will agree to endoscopy), continued imaging of the liver and ascites/edema fluid management. Supervising Physician Co-Signing Physician Notes Admitted with sob, reported abdominal distension- imaging with abd suggestive of cirrhosis/splenomegaly/varices, splenorenal shunt, ? 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 PE as documented above. Prior ethanol use. MELD is camilel 19 given tb of 6.3, inr 1.6, normal na, cr. platelets are low with small amount of ascites noted on imaging. No prior scopes including a colon. Echo thus far shows a normal ef. Essentially an incidental finding of cirrhosis with portal htn in the form of varices, splenorenal shunt leading to low platelets, without significant ascites and now liver lesions concerning for possibly primary hcc versus metastatic disease to the liver. afp pending. Etiology of cirrhosis per history appears to be ethanol which maybe contributing to slight bump in tb and inr currently but df is less than 32. Ultrasound guided biospy of liver lesion to determine etiology. Not wanting egd or colon at this time. Further work-up for his sob- ? copd- honeycombing of lungs noted, recent echo appears normal and he is on prn lasix. History of Present Illness Reason for Consultation: Decompensated Cirrhosis Requesting Physician: Laila Ramos PA-C Attending Physician: Mayo Ly MD History of Present Illness Mr. Alphonse Hi is a 81 yr old male pt of Dr. Kaminski w a hx of gout, chronic venous insufficiency who presented to the ED yesterday for SOB. On arrival, LFTs are elevated (T Bili 7.4, AST 53, ALT 22, Alk Phos 136), platelets are decreased (69), INR elevated (1.6) and CT is suggestive of liver cirrhosis with hepatocellular cancer vs. metastatic lesions w/o known primary site. The pt is awake, alert, oriented, comfortable. He tells me the he drinks about 2 cases of beer/week though he decreased recently and most recent drink of alcohol was 2 days ago and only one beer that day. He denies tremors/agitation. He reports that his abdomen slowly enlarged over the past few months and he thought this was from eating more. He denies any abdominal pain, yellow eyes/skin, pruritus, blood in BMs or black BMs, N/V. He was prescribed Zithromax and Augmentin 2 days ago for a sinus infection. Allergies Allergy/AdvReac Type Severity Reaction Status Date / Time No Known Allergies Allergy Unverified 09/16/22 16:52 Home Medications Medication Instructions Recorded Confirmed Type amoxicillin 875 mg-potassium 1 tab PO DIRECTED 09/16/22 09/16/22 History clavulanate 125 mg tablet azithromycin 250 mg tablet 250 mg PO DIRECTED 09/16/22 09/16/22 History furosemide 40 mg tablet 40 mg PO DAILY PRN .Leg swelling, 09/16/22 09/16/22 History fluid accumulation indomethacin 50 mg capsule 50 mg PO TID PRN Pain 09/16/22 09/16/22 History rlcozgdy-geq-gyzkp acid 0.4 1 tab PO DAILY 09/16/22 09/16/22 History mg-lycopene 300 mcg-lutein 250 mcg tablet (Centrum Silver) Patient History Medical History (Updated 09/17/22 @ 10:17 by MARTY Pearson) Gout Surgical History (Updated 09/16/22 @ 16:45 by Laila Juárez PA-C) History of selective laser trabeculoplasty Hx of cataract extraction Hx of hernia repair Hx of knee surgery Hx of sinus surgery Family History (Updated 09/16/22 @ 16:46 by Laila Juárez PA-C) Brother Heart disease Social History (Updated 09/16/22 @ 16:44 by Laila Juárez PA-C) Smoking Status: Former smoker Hx Alcohol Use: Yes Alcohol type: beer Alcohol type Comment: 2 cases a week Alcohol Intake Frequency: 4 or More x per/Week Hx Substance Use: No Preferred Language: Armenian Communication Ability: Effective Technical Support 1 Software Engineer Required: No Beliefs That Will Affect Care: None Current Living Situation: Spouse Feels Safe at Home: Yes Safety Concerns: Feels Safe At This Time Assistive Devices: Cane Review of Systems Review of Systems: ROS: Gen: Denies weakness, fevers, weight loss Eyes: No eye redness, or pain, no recent vision changes Resp: + SOB, sl cough Cardio: No palpitations/irregular beats, no chest pain GI: No abdominal pain, no nausea/vomiting, no blood in BMs : Denies pain on urination Skin: No jaundice, itching or new rashes Physical Exam Constitutional: WD/WN, vitals as above Eyes: + scleral abnormality (mild icterus) and PERRL ENMT: external ear and nose normal, oropharynx normal Neck: trachea midline, no thyromegaly Respiratory: normal respiratory effort, lungs clear to auscultation Cardiovascular: Rate/Rhythm: regular rate and regular rhythm Heart Sounds: no murmur Extremities: + edema (non pittig 1+ bilat lower leg edema) Gastrointestinal (Abdomen): Mild ascites, not taunt, not tender. BS present, no palpable masses. Musculoskeletal: no cyanosis or clubbing, extremities motor strength 5/5 Skin: dull red skin on both lower legs + spider angiomas on the chest scattered small ecchymotic areas. Neurologic: PERRL, EOMI, accommodation nl, no face palsy, no dysarthria Psychiatric: A+Ox3, euthymic affect Lymphatic: no cervical or axillary lymphadenopathy Results & Data ([facility]) Vital Signs (Past 12 Hours) Vital Signs Temp Pulse Pulse Resp BP Pulse Ox O2 Del Method 09/17/22 03:51 36.4 C L 69 17 106/59 L 94 Room Air 09/17/22 00:47 36.4 C L 70 16 108/67 94 Room Air 09/16/22 22:10 71 Laboratory Results WBC 4, Hb 13, Hct 37, Plts 69, PT 16, INR 1.6, Na 138, K 3.8, Cl 105, CO2 28, BUN 16, Cr 0.88, glucose 92. T Bili 7.4-> 6.3, AST 53->44, ALT 22, Alk Phos 136->111. Diagnostic Findings Liver protocol CT 09/16/22: - Moderate ascites noted 1. Cirrhosis with manifestations of portal hypertension including small to moderate varices, splenomegaly and varices formation, including a splenorenal shunt and a collateral extending into a left inguinal hernia. Diminutive main, left and right portal veins which are likely patent. 2. Numerous hypodense hepatic masses. These are likely neoplastic and favor primary liver malignancy, such as hepatocellular carcinoma, with metastases or metastatic disease of unknown primary. Although regenerative nodules are technically within the differential, this is considered much less likely. Findings could be correlated with AFP level. Lateral segment lesions would likely be amenable to ultrasound-guided biopsy. 3. Cardiomegaly, pulmonary edema, small bilateral pleural effusions and anasarca. 4. Evidence for interstitial lung disease with honeycombing within the lung bases. 5. No bowel obstruction. No bowel wall thickening. Colonic diverticulosis without evidence for acute diverticulitis. 6. Bladder wall thickening which could be correlated with urinalysis. 7. Prominent retroperitoneal lymph nodes which are probably benign.
[2022-09-17] MEDS ORDERED: ALBUMIN 25% 100 mL 25 GM/100 ML VIAL IV ONE ×2 (10:33→14:00)
--- NOTE | 2022-09-17 11:16 | Cardiology Consultation ---
Date of Consultation September 17, 2022 Assessment & Plan (1) Bifascicular block: (2) Alcohol abuse: (3) Anasarca: (4) Decompensated hepatic cirrhosis: (5) Abdominal ascites: (6) Elevated troponin I level: (7) Abnormal EKG: (8) Thrombocytopenia: Plan No atrial fibrillation. EKG's and telemetry reveal sinus with Mobitz type I second degree AV block. Anasarca from decompensated hepatic cirrhosis, most likely alcoholic cirrhosis from longstanding chronic alcohol abuse. Patient undergoing evaluation for hepatocellular carcinoma versus metastatic liver disease with unknown primary Elevated high sensitivity troponin. Likely secondary to the acute illness. EKG without acute change. Resting echocardiogram with preserved LV systolic function, without wall motion abnormality. Patient asymptomatic, with contraindications to antiplatelet therapy (marked thrombocytopenia) RECOMMENDATIONS: 1. Recommend cautious use of beta-yann therapy given conduction system disease. 2. Maintain telemetry 3. Decrease metoprolol dosing to 12.5 mg twice a day for now. 4. ? Switch to carvedilol (nonselective, with mild anti-alpha 1 adrenergic activity) 5. Antiplatelet and anticoagulation contraindicated, RE: marked thrombocytopenia. 6. Dietary sodium restriction recommended. 7. Continue IV diuresis, likely will be adding spironolactone to furosemide Supervising Physician Co-Signing Physician Notes Patient was seen and personally examined. Agree with full assessment as above Patient presents with signs and symptoms of decompensated hepatic cirrhosis with anasarca. Overall systolic function grossly preserved EKGs do not reflect atrial fibrillation but reflect sinus rhythm with first- degree AV block, intermittent Mobitz type I second-degree AV block Would continue low-dose beta-yann as noted above would not aggressively titrate beta-yann given underlying conduction system disease Add TSH to laboratory testing History of Present Illness Reason for Consultation: Atrial fibrillation. CHF Requesting Physician: Franck Attending Physician: Aliyah History of Present Illness Mr. Alphonse Macias is a 81 year old male who was referred for hospitalization due to abnormal laboratory work obtained as an outpatient. LFTs elevated (T Bili 7.4, AST 53, ALT 22, Alk Phos 136). Thrombocytopenia (69K), INR 1.6 Imaging suggestive of liver cirrhosis with hepatocellular cancer vs. metastatic lesions w/o known primary site. Complaints on presentation include a nonproductive cough, acute on chronic shortness of breath, abdominal distension/bloating, penile/scrotal edema, worsening lower extremity edema, weight gain, and skin discoloration. EKG on presentation was felt to represent atrial fibrillation however personal review reveals sinus rhythm with a right bundle branch block, with atrial ectopy, Mobitz I second degree AV block. High sensitivity troponin elevated at 174.1, 163.2, 169.1 pg/mL. Patient denies prior cardiac history. Denies chest pain. Denies palpitations. Breathing, fluid, and complexion have improved as per . Past Medical and Surgical History: Gout Alcohol use disorder Chronic venous insufficiency Laser eye surgery Nasal cauter for epistaxis, polypectomy and septoplasty, Dr. Mascorro Cataract extraction Family History: Mother and her sisters lived in to their 90's. Father with black lung. 12 Siblings. One shortly after . Not notable for CAD. Social History: Reformed smoker, 1 ppd x 20 years, quitting approximately 30 years ago. Alcohol: 2 cases of beer per week. No illegal drug use. to [employer]. 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 Allergies Allergy/AdvReac Type Severity Reaction Status Date / Time No Known Allergies Allergy Unverified 09/16/22 16:52 Home Medications Medication Instructions Recorded Confirmed Type amoxicillin 875 mg-potassium 1 tab PO DIRECTED 09/16/22 09/16/22 History clavulanate 125 mg tablet azithromycin 250 mg tablet 250 mg PO DIRECTED 09/16/22 09/16/22 History furosemide 40 mg tablet 40 mg PO DAILY PRN .Leg swelling, 09/16/22 09/16/22 History fluid accumulation indomethacin 50 mg capsule 50 mg PO TID PRN Pain 09/16/22 09/16/22 History dmpqhmny-pnw-hnjxt acid 0.4 1 tab PO DAILY 09/16/22 09/16/22 History mg-lycopene 300 mcg-lutein 250 mcg tablet (Centrum Silver) Patient History Medical History Gout Surgical History History of selective laser trabeculoplasty Hx of cataract extraction Hx of hernia repair Hx of knee surgery Hx of sinus surgery Family History Brother Heart disease Social History Smoking Status: Former smoker Hx Alcohol Use: Yes Alcohol type: beer Alcohol type Comment: 2 cases a week Alcohol Intake Frequency: 4 or More x per/Week Hx Substance Use: No Preferred Language: Divehi Communication Ability: Effective Distribution Associate Required: No Beliefs That Will Affect Care: None Current Living Situation: Spouse Feels Safe at Home: Yes Safety Concerns: Feels Safe At This Time Assistive Devices: Cane Review of Systems Review of Systems: Covid in March 2022. Chronic sinus pain. Bilateral knee pain. BPH symptoms. Complete Review of Systems is as stated above, negative, or noncontributory. Physical Exam Physical Exam: General: A&Ox3. NAD. Skin: Diffuse areas of ecchymosis in various stages of healing HENT: Normocephalic. Atraumatic. Eyes: PER. Conjunctiva pink, sclera isterus. Neck: No carotid bruits. JVD. HJR. Heart: RRR, 70 bpm. Systolic ejection murmur. No rub. PMI is nondisplaced. Lungs: Diminished. Clear to auscultation. Abdomen: +BS. Soft. Nontender. + Hepatomegaly. No splenomegaly Extremities: Chronic indurated edema. No clubbing. No cyanosis Limited neurological examination is without focal deficits. Pulses: radial=2/4, posterior tibial=0/4. Results & Data ([facility]) Vital Signs (Past 12 Hours) Vital Signs Temp Pulse Pulse Resp BP Pulse Ox O2 Del Method 09/17/22 10:00 72 09/17/22 10:00 Room Air 09/17/22 03:51 36.4 C L 69 17 106/59 L 94 Room Air 09/17/22 00:47 36.4 C L 70 16 108/67 94 Room Air Laboratory Results Cardiac Enzymes 09/16/22 09/16/22 09/16/22 Range/Units 11:20 11:20 16:53 AST 53 H (13-39) U/L Troponin I High Sens 174.1 H* 163.2 H* (0-20) pg/ml B-Natriuretic Peptide 972 H (0-100) pg/ml 09/16/22 09/17/22 Range/Units 22:44 05:44 AST 44 H (13-39) U/L Troponin I High Sens 169.1 H* (0-20) pg/ml B-Natriuretic Peptide (0-100) pg/ml Coagulation 09/16/22 09/16/22 09/16/22 Range/Units 11:20 11:20 14:29 PT Cancelled 16.9 H APTT Cancelled 36.8 H B-Natriuretic Peptide 972 H (0-100) pg/ml 09/17/22 Range/Units 05:44 PT 16.9 H APTT B-Natriuretic Peptide (0-100) pg/ml CBC 09/16/22 09/17/22 Range/Units 11:20 05:44 WBC 3.62 L 4.03 L (4.8-10.8) K/ul RBC 4.36 L 3.86 L (4.70-6.10) M/uL Hgb 14.9 13.1 L (14.0-18.0) g/dl Hct 42.7 37.7 L (42.0-52.0) % Plt Count 65 L 69 L (130-400) K/uL Neut # (Auto) 2.69 2.58 (1.40-6.50) K/uL Lymph # (Auto) 0.42 L 0.72 L (1.2-3.4) K/uL [place] # (Auto) 0.40 0.55 (0.11-0.59) K/uL Eos # (Auto) 0.08 0.14 (0-0.50) K/uL Baso # (Auto) 0.02 0.02 (0-0.2) K/uL Comprehensive Metabolic Panel 09/16/22 09/17/22 Range/Units 11:20 05:44 Sodium 134 L 138 (136-145) mmol/L Potassium 4.1 3.8 (3.5-5.1) mmol/L Chloride 101 105 (98-107) mmol/L Carbon Dioxide 24 25 (21-32) mmol/L BUN 14 16 (6-23) mg/dl Creatinine 0.82 0.88 (0.6-1.4) mg/dl Glucose 110 H 92 (70-99(Fasting)) mg/dl Calcium 9.5 8.6 (8.5-10.1) mg/dl Direct Bilirubin 2.4 H (0-0.2) mg/dl AST 53 H 44 H (13-39) U/L ALT 26 22 (7-52) U/L Alkaline Phosphatase 136 H 111 H (34-104) U/L Total Protein 7.7 6.5 (6.0-8.3) gm/dl Albumin 3.5 3.1 L (3.4-5.0) gm/dl Intake and Output 09/16/22 09/17/22 09/17/22 22:59 06:59 14:59 Intake Total 350 / 350 Output Total 2950 / 4025 1075 / 4025 Balance -2600 / -3675 -1075 / -3675 Intake: Oral 350 / 350 Output: Urine 2950 / 4025 1075 / 4025 Other: Weight 114.8 kg 114.5 kg Weight Measurement Method Built in [facility] Diagnostic Findings Admission EKG revealed sinus rhythm with a right bundle branch block, with frequent atrial ectopy, Mobitz I second degree AV block EKG on 09/17/2022 revealed sinus rhythm at 69 bpm with Mobitz I second degree AV block, right bundle branch block, bifascicular block, lateral T wave changes suggestive of LVH versus ischemia Telemetry: Sinus with Mobitz type I second degree AV block. Rates typically in the 60's and 70's. No atrial fibrillation. No significant bradycardia or pauses. September 17, 2022 TTE Interpretation Summary ([facility], Dr. Gonzales): Normal size LV. Moderate concentric LVH. Normal LV wall motion. EF 50-55%. Mildly dilated LA. Moderately dilated RA. Moderate aortic valve sclerosis without significant aortic valve stenosis. Mild mitral regurgitation. Moderate to severe tricuspid regurgitation. RVSP 30-40 mmHg. (5) Abdominal ascites Ascites type: other type Qualified Code(s): R18.8 - Other ascites
--- NOTE | 2022-09-17 15:13 | Electrocardiogram Report ---
Test Reason : Blood Pressure : / mmHG Vent. Rate : 069 BPM Atrial Rate : 078 BPM P-R Int : 000 ms QRS Dur : 154 ms QT Int : 502 ms P-R-T Axes : 000 -65 113 degrees QTc Int : 537 ms Sinus rhythm with 2nd degree A-V block (Mobitz I) Right bundle branch block Left anterior fascicular block Bifascicular block T wave abnormality, consider lateral ischemia Abnormal ECG When compared with ECG of 16-SEP-2022 11:18, No significant change Confirmed by Efra Gallegos ([id number]) on 09/17/2022 3:12:52 PM Referred By: Mynor Kaminski Confirmed By:Efra Gallegos
--- NOTE | 2022-09-17 15:16 | Electrocardiogram Report ---
Test Reason : Blood Pressure : / mmHG Vent. Rate : 092 BPM Atrial Rate : 107 BPM P-R Int : 000 ms QRS Dur : 150 ms QT Int : 416 ms P-R-T Axes : 000 241 070 degrees QTc Int : 514 ms Possible Sinus rhythm with 2nd degree A-V block (Mobitz I) Right bundle branch block Abnormal ECG When compared with ECG of 07-NOV-2013 09:55, Sinus rhythm is now with Mobitz I Right bundle branch block is now Present Confirmed by Efra Gallegos ([id number]) on 09/17/2022 3:16:48 PM Referred By: Confirmed By:Efra Gallegos
[2022-09-17 15:28] LABS: Thyroid Stimulating Hormone 4.521 uIu/ml (0.300-4.500)
[2022-09-17 16:03] LABS: T4 Free Thyroxine 1.27 ng/dl (0.61-1.60)
--- NOTE | 2022-09-17 16:04 | Hospitalist Progress Note ---
Date of Service September 17, 2022 Assessment & Plan (1) Anasarca: (2) Liver masses: (3) Hyperbilirubinemia: (4) Pulmonary edema: (5) Afib: (6) Elevated troponin I level: (7) Abnormal EKG: (8) Thrombocytopenia: (9) Alcohol abuse: Plan Patient is a 81 yr male with H/O gout who presents to ER secondary to referral by PCP to abnormal labs. Reports ongoing shortness of breath for approximately the past 6 weeks. He was seen by PCP on 09/15 and underwent lab work which revea led hyperbilirubinemia and elevated BNP. He also was hypoxic with exertion in outpatient clinic and was referred to ED. Patient reports hx of alcohol abuse with 2 cases of beer/wk since age 14. 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 Diminutive main, left and right portal veins which are likely patent. Numerous hypodense hepatic masses. These are likely neoplastic and favor primary liver malignancy, such as hepatocellular carcinoma, with metastases or metastatic disease of unknown primary. Although regenerative nodules are technically within the differential, this is considered much less likely. Findings could be correlated with AFP level. Lateral segment lesions would likely be amenable to ultrasound-guided biopsy. Cardiomegaly, pulmonary edema, small bilateral pleural effusions and anasarca. P --Gall Bladder USD:Heterogeneity of the liver suggestive of cirrhosis. Splenomegaly and ascites suggest portal hypertension. Diminished portal flow which could reflect slow flow or portal venous thrombus. Suspected hypoechoic hepatic lesions which may be neoplastic/metastatic. Liver protocol CT with and without contrast is recommended for further evaluation. No gallstones or biliary ductal dilatation. 5.2 cm mass-like hypoechoic focus within or adjacent to the pancreatic head. This could reflect a pancreatic mass or enlarged lymph node and can be assessed on CT. --AFP, CA 19-9 antigen pending --CEA normal -- Immunological studies, flow cytometry pending -- Monitor LFTs Counseled to quit alcohol use Avoid hepatotoxic agents as able Plan for liver biopsy tomorrow Appreciate GI input Will need outpatient EGD, colonoscopy Continue diuretics for now Transition to p.o. Lasix, spironolactone as able Monitor volume status Saturating well on room air Alcohol use disorder Counseled to quit drinking On gabapentin protocol Continue thiamine, folic acid Monitor for withdrawal Bifascicular block A-fib ruled out First-degree AV block, intermittent Mobitz type I second-degree AV block Cautious use of beta-yann Metoprolol dose decreased to 12.5 mg twice daily Appreciate cardiology input Thyroid function test normal Appreciate cardiology input Consider to discontinue beta-yann Thrombocytopenia Likely due to liver disease No bleeding issues Monitor platelets Troponin elevation likely secondary to volume overload Less Likely ACS --ECHO: Left ventricle is normal in size. Moderate concentric LVH. Left ventricle wall motion is normal. EF 50 to 55%. Left atrium is mildly dilated. Right atrium is moderately dilated. Aortic valve sclerosis moderate, without significant aortic valvular stenosis. Mild mitral regurgitation. Moderate to severe tricuspid regurgitation. Patient denies chest pain Echo showed no wall motion abnormality DVT Px: SCDs for now Re: Thrombocytopenia Code Status FULL CODE Admission and Anticipated Discharge Date Admission Date: September 16, 2022 Subjective Patient is seen and examined at bedside Dyspnea slightly improved today Denies any chest pain, abdominal pain, nausea, dizziness Still has some balance issues with ambulation No other complaints Review of Systems Review of Systems: All systems reviewed & are unremarkable except as noted in Subjective Physical Exam Physical Exam: Physical Exam: Vitals signs as noted above General Appearance:Obese, no apparent distress Head: normocephalic, Atraumatic Eyes: normal inspection, EOMI, +Icteric Neck: supple, Trachea midline Respiratory/Chest: Normal breath sounds, basal crackles,, No accessory muscle use Cardiovascular: Irregularly irregular, No murmur Abdomen/GI:Soft, Non tender, distended, bowel sounds present Extremities/Musculoskeletal:normal inspection, 3+ B/L LE edema Neurologic/Psych:AAOX3, grossly no focal neurological deficits Skin: normal color, warm, + jaundice Results & Data Results & Data ([facility]) Vital Signs (Past 12 Hours) Vital Signs Temp Pulse Pulse Resp BP Pulse Ox O2 Del Method 09/17/22 15:47 58 L 09/17/22 15:28 36.8 C 62 16 113/50 L 97 Room Air 09/17/22 11:57 36.4 C L 73 16 118/66 90 Room Air 09/17/22 10:00 72 09/17/22 10:00 Room Air Laboratory Results Short CBC 09/17/22 Range/Units 05:44 WBC 4.03 L (4.8-10.8) K/ul Hgb 13.1 L (14.0-18.0) g/dl Hct 37.7 L (42.0-52.0) % Plt Count 69 L (130-400) K/uL BMP 09/17/22 05:44 Sodium 138 Potassium 3.8 Chloride 105 Carbon Dioxide 25 BUN 16 Creatinine 0.88 Glucose 92 Calcium 8.6 Liver Function 09/17/22 Range/Units 05:44 Total Bilirubin 6.3 H (0.2-1.0) mg/dl AST 44 H (13-39) U/L ALT 22 (7-52) U/L Alkaline Phosphatase 111 H (34-104) U/L Albumin 3.1 L (3.4-5.0) gm/dl (4) Pulmonary edema Chronicity: acute Qualified Code(s): J81.0 - Acute pulmonary edema
[2022-09-18] MEDS: GABAPENTIN 600 MG TAB PO SCH ×2 (06:06→17:29)
[2022-09-18 07:12] LABS: Hematocrit (blood only) 37.6 % (42.0-52.0); Hemoglobin 12.9 g/dl (14.0-18.0); Mean Corpuscular Hemoglobin 33.9 pg (25.0-34.0); Mean Corpuscular Hgb Conc 34.3 g/dL (32.0-36.0); Mean Corpuscular Volume 98.9 fL (80.0-100.0); Mean Platelet Volume 10.1 fL (9.4-12.4); Platelet Count 69 K/uL (130-400); RDW Coefficient of Variation 15.3 % (11.5-14.5); RDW Standard Deviation 55.8 fL (36.4-46.3); White Blood Count 4.29 K/ul (4.8-10.8)
[2022-09-18 07:29] LABS: Albumin Globulin Ratio 0.8 (0.9-2); Albumin Level 2.9 gm/dl (3.4-5.0); BUN Creatinine Ratio 19.8 (10-20); Bilirubin,Total 5.7 mg/dl (0.2-1.0); Calcium 8.9 mg/dl (8.5-10.1); Est GFR (Non-African American) 59.6 ml/min; Globulin 3.5 gm/dl (2.5-4.0); Magnesium 1.7 mg/dl (1.7-2.4); Potassium 3.6 mmol/L (3.5-5.1); Total Protein 6.4 gm/dl (6.0-8.3)
[2022-09-18 07:36] LABS: Basophils # (auto) 0.02 K/uL (0-0.2); Basophils % (auto) 0.5 %; Echinocytes 1+; Eosinophils % (auto) 4.7 %; Immature Granulocytes # (auto) 0.02 K/uL (0.01-0.20); Immature Granulocytes % (auto) 0.5 %; Lymphocytes # (auto) 1.03 K/uL (1.2-3.4); Monocytes # (auto) 0.56 K/uL (0.11-0.59); Monocytes % (auto) 13.1 %; Neutrophils # (auto) 2.46 K/uL (1.40-6.50); Neutrophils % (auto) 57.2 %
[2022-09-18] MEDS: FOLIC ACID 1 MG TAB PO SCH (08:15)
[2022-09-18] MEDS: METOPROLOL TARTRATE 25 MG TAB PO SCH (08:15)
[2022-09-18] MEDS: CEROVITE ADV FORMULA TAB PO SCH (08:16)
[2022-09-18] MEDS: THIAMINE HCL 100 MG TAB PO SCH (08:17)
--- NOTE | 2022-09-18 10:09 | Electrocardiogram Report ---
Test Reason : Blood Pressure : / mmHG Vent. Rate : 067 BPM Atrial Rate : 085 BPM P-R Int : 000 ms QRS Dur : 158 ms QT Int : 514 ms P-R-T Axes : 072 -66 082 degrees QTc Int : 543 ms Sinus rhythm with 2nd degree A-V block (Mobitz I) Right bundle branch block Left anterior fascicular block Bifascicular block Abnormal ECG When compared with ECG of 17-SEP-2022 05:57, T wave inversion less evident in Anterolateral leads Confirmed by Fermin Gayle ([id number]) on 09/18/2022 10:09:24 AM Referred By: Mynor Kaminski Confirmed By:Mauricio Gayle
--- NOTE | 2022-09-18 11:16 | Ultrasound Report ---
ULTRASOUND GUIDED FINE-NEEDLE ASPIRATION OF LATERAL SEGMENT HEPATIC MASS CLINICAL HISTORY: Liver lesions. COMPARISON STUDY: CT of the abdomen and pelvis September 16, 2022. PROCEDURE: Sonography of the liver demonstrated numerous hypoechoic hepatic masses. Index lateral seg ment lesion measuring approximately 4.1 cm was targeted for fine-needle aspiration. The procedure, ri sks and benefits were discussed with the patient including the risk of bleeding, infection and injury to adjacent structures. The patient agreed to the procedure and informed written consent was obtaine d. The procedure was performed by Dr. Kraus following a timeout. Skin was prepped and draped in s terile fashion and local anesthesia was achieved with 1% lidocaine. Under direct ultrasound guidance, 3 22-gauge fine-needle aspirations utilizing Serge needles were performed. Core biopsy was not pe rformed given thrombocytopenia and mildly elevated INR. Atypical cells were noted on preliminary path ology. It was decided to proceed with further sampling at this time. Patient tolerated the procedure well and no immediate complications were evident. IMPRESSION: Successful ultrasound guided 22-gauge fine needle aspiration of a lateral segment hepati c mass. ACT 112: Negative or not required by law. Electronically signed by: Boris Kraus M.D. 09/18/2022 11:15 AM
--- NOTE | 2022-09-18 11:17 | Ultrasound Report ---
US abdomen ltd ascites CLINICAL HISTORY: new cirrhosis COMPARISON STUDY: CT of the abdomen and pelvis September 16, 2022. FINDINGS: Patient presented today for possible paracentesis. However, only a small amount of perihepa tic ascites was noted. No fluid was noted within the lower quadrants. Therefore, paracentesis could n ot be performed. The liver is cirrhotic and numerous hypoechoic hepatic lesions are present. Amount o f fluid has decreased since prior CT. IMPRESSION: Small amount of perihepatic ascites. No fluid within the lower quadrants. Insufficient f luid for paracentesis. ACT 112: Negative or not required by law. Electronically signed by: Boris Kraus M.D. 09/18/2022 11:16 AM
[2022-09-18] MEDS: FUROSEMIDE 40 MG/4 ML VIAL IV SCH (11:38)
--- NOTE | 2022-09-18 11:55 | Cardiology Progress Note ---
Date of Service September 18, 2022 Assessment & Plan (1) Bifascicular block: (2) Alcohol abuse: (3) Anasarca: (4) Decompensated hepatic cirrhosis: (5) Abdominal ascites: (6) Elevated troponin I level: (7) Abnormal EKG: (8) Thrombocytopenia: Plan Admission with decompensated hepatic cirrhosis with anasarca Elevated high sensitivity troponin. Likely secondary to the acute illness. - EKG without acute change. - Resting echocardiogram with preserved LV systolic function, without wall motion abnormality. - Patient with contraindications to antiplatelet therapy and anticoagulation, RE: marked thrombocytopenia Underlying conduction system disease, asymptomatic. No atrial fibrillation RECOMMENDATIONS: Dietary sodium restriction Discontinue IV furosemide Initiate oral furosemide and spironolactone Alcohol abstinence. Increase activity as tolerated. Admission and Anticipated Discharge Date Admission Date: September 16, 2022 Supervising Physician Co-Signing Physician Notes Patient seen and examined. Assessment as above outlined above status post liver biopsy this morning No further progression in conduction system disease. Did tolerate very low-dose beta-yann but agree with holding at this time Diuretics ordered for chronic management Patient at risk for alcohol withdrawal Subjective Patient seen and examined. Chart, medications, and telemetry reviewed. Patient notes feeling a little shaky today. No chest pain. No palpitations. No increased shortness of breath. Fluid continues to improve. Cumulative I's and O's -4105 mL overall. EKG September 18, 2022 personally reviewed, revealed sinus rhythm at 67 bpm with Mobitz type I second-degree AV block. Right bundle branch block. Left anterior fascicular block. Bifascicular block. When compared to prior tracings, T wave inversion less evident. Continuous telemetry monitoring reveals sinus with Mobitz type I second-degree AV block. No second-degree type II or third-degree heart block observed. No atrial fibrillation or flutter. Mild bradycardia overnight. No significant pauses. Review of Systems Review of Systems: Covid in March 2022. Chronic sinus pain. Bilateral knee pain. BPH symptoms. Complete Review of Systems is as stated above, negative, or noncontributory. Physical Exam Physical Exam: General: A&Ox3. NAD. Skin: Diffuse areas of ecchymosis in various stages of healing HENT: Normocephalic. Atraumatic. Eyes: PER. Conjunctiva pink, sclera isterus. Neck: No carotid bruits. JVD. HJR. Heart: RRR, 66 bpm. Systolic ejection murmur. No rub. PMI is nondisplaced. Lungs: Diminished. Clear to auscultation. Abdomen: +BS. Soft. Nontender. + Hepatomegaly. No splenomegaly Extremities: Chronic indurated edema. No clubbing. No cyanosis Limited neurological examination is without focal deficits. Pulses: radial=2/4, posterior tibial=0/4. Results & Data ([facility]) Vital Signs (Past 12 Hours) Vital Signs Temp Pulse Pulse Resp BP BP BP 09/18/22 11:29 36.4 C 72 18 115/64 09/18/22 11:00 68 23 09/18/22 10:59 65 20 09/18/22 10:59 127/70 09/18/22 10:58 109/64 09/18/22 10:58 68 24 09/18/22 10:57 66 16 09/18/22 10:57 84 132/71 09/18/22 10:55 77 66 H 09/18/22 09:10 66 18 09/18/22 09:10 119/60 09/18/22 09:05 72 18 09/18/22 09:05 116/68 09/18/22 09:00 57 L 17 09/18/22 08:00 62 15 09/18/22 07:33 63 19 09/18/22 07:33 112/58 L 09/18/22 07:00 66 17 09/18/22 06:00 70 14 09/18/22 05:00 65 20 09/18/22 04:00 66 33 H 09/18/22 03:02 70 31 H 09/18/22 03:02 97/61 L 09/18/22 03:00 75 20 09/18/22 02:00 69 17 09/18/22 01:00 72 17 09/18/22 00:00 72 19 09/18/22 09:00 68 09/18/22 09:00 09/18/22 08:00 36.6 C 62 22 112/58 L 09/18/22 03:04 36.7 C 64 16 99/62 L 09/18/22 02:59 36.7 C 72 22 97/61 L Pulse Ox O2 Del Method 09/18/22 11:29 93 09/18/22 11:00 94 02/16/23 10:59 93 09/18/22 10:59 09/18/22 10:58 09/18/22 10:58 94 09/18/22 10:57 91 09/18/22 10:57 09/18/22 10:55 09/18/22 09:10 87 L 09/18/22 09:10 09/18/22 09:05 09/18/22 09:05 09/18/22 09:00 09/18/22 08:00 09/18/22 07:33 92 09/18/22 07:33 09/18/22 07:00 09/18/22 06:00 09/18/22 05:00 09/18/22 04:00 09/18/22 03:02 09/18/22 03:02 09/18/22 03:00 09/18/22 02:00 09/18/22 01:00 09/18/22 00:00 09/18/22 09:00 09/18/22 09:00 Room Air 09/18/22 08:00 93 Room Air 09/18/22 03:04 92 Room Air 09/18/22 02:59 91 Room Air Laboratory Results Cardiac Enzymes 09/18/22 Range/Units 06:35 AST 42 H (13-39) U/L CBC 09/18/22 Range/Units 06:35 WBC 4.29 L (4.8-10.8) K/ul RBC 3.80 L (4.70-6.10) M/uL Hgb 12.9 L (14.0-18.0) g/dl Hct 37.6 L (42.0-52.0) % Plt Count 69 L (130-400) K/uL Neut # (Auto) 2.46 (1.40-6.50) K/uL Lymph # (Auto) 1.03 L (1.2-3.4) K/uL [place] # (Auto) 0.56 (0.11-0.59) K/uL Eos # (Auto) 0.20 (0-0.50) K/uL Baso # (Auto) 0.02 (0-0.2) K/uL Comprehensive Metabolic Panel 09/18/22 Range/Units 06:35 Sodium 139 (136-145) mmol/L Potassium 3.6 (3.5-5.1) mmol/L Chloride 105 (98-107) mmol/L Carbon Dioxide 27 (21-32) mmol/L BUN 23 (6-23) mg/dl Creatinine 1.16 (0.6-1.4) mg/dl Glucose 92 (70-99(Fasting)) mg/dl Calcium 8.9 (8.5-10.1) mg/dl AST 42 H (13-39) U/L ALT 21 (7-52) U/L Alkaline Phosphatase 106 H (34-104) U/L Total Protein 6.4 (6.0-8.3) gm/dl Albumin 2.9 L (3.4-5.0) gm/dl Intake and Output 09/17/22 09/18/22 09/18/22 22:59 06:59 14:59 Intake Total 540 / 720 180 / 720 Output Total 350 / 350 Balance 540 / -80 180 / -80 -350 / -350 Intake: Oral 540 / 720 180 / 720 Output: Urine 350 / 350 Other: # Unmeasured Voids 1 # Urine Diapers 1 Weight 109.8 kg Weight Measurement Method Built in [facility] (5) Abdominal ascites Ascites type: other type Qualified Code(s): R18.8 - Other ascites
--- NOTE | 2022-09-18 12:13 | Gastroenterology Progress Note ---
Date of Service September 18, 2022 Assessment & Plan (1) Alcohol abuse: (2) Decompensated hepatic cirrhosis: Plan: Most likely alcoholic cirrhosis. Autoimmune labs pending. (3) Liver lesion: Plan: ? HCC vs. metastatic liver disease unknown primary site. Bx obtained today. Plan 1. We will review results of biopsy when available. 2. Unable to obtain ascitic fluid for analysis. 3. Diuretics per cardiology. 4. Will need OP GI f/u for management of cirrhosis, EGD, colonoscopy (discussed w pt who doesn't think he will agree to endoscopy), continued imaging of the liver and ascites/edema fluid management. 5. GI will sign off. Please notify us if worsened GI/liver issues. Admission and Anticipated Discharge Date Admission Date: September 16, 2022 Supervising Physician Co-Signing Physician Notes Agree with PE as documented Admitted with sob with findings of cirrhosis, splenomegaly, splenorenal shunt and low platelets in the setting of ethanol use. Also with liver lesions concerning for ?hcc versus metastatic disease. liver biopsy done today - awaiting results, if confirmed to be hcc - will need reviewed with radiology at [facility] to determine further treatment Alcohol cessation is highly recommended. MELD is camille 19 based on labs though bili is downtrending. Minimal ascites noted on imaging so not amenable to a tap. Subjective 81, male admitted 09/16 for fluid overload. Imaging w cirrhosis, HCC vs. liver mets unknown site. Responded well to diuretics. Liver bx obtained to day. Unable to get even a dx paracentesis because no fluid pocket. Able to ambulate in the room today. LFTs improving. Review of Systems Review of Systems: ROS: Gen: Denies weakness, fevers, weight loss Eyes: No eye redness, or pain, no recent vision changes Resp: + SOB, sl cough Cardio: No palpitations/irregular beats, no chest pain GI: No abdominal pain, no nausea/vomiting, no blood in BMs : Denies pain on urination Skin: No jaundice, itching or new rashes Physical Exam Constitutional: WD/WN, vitals as above Eyes: + scleral abnormality (mild icterus) and PERRL ENMT: external ear and nose normal, oropharynx normal Neck: trachea midline, no thyromegaly Respiratory: normal respiratory effort, lungs clear to auscultation Cardiovascular: Rate/Rhythm: regular rate and regular rhythm Heart Sounds: no murmur Extremities: + edema (non pittig 1+ bilat lower leg edema) Gastrointestinal (Abdomen): soft, non tender, obese, no palpable mass, no significant ascites. Musculoskeletal: no cyanosis or clubbing, extremities motor strength 5/5 Neurologic: PERRL, EOMI, accommodation nl, no face palsy, no dysarthria Psychiatric: A+Ox3, euthymic affect Lymphatic: no cervical or axillary lymphadenopathy Results & Data ([facility]) Vital Signs (Past 12 Hours) Vital Signs Temp Pulse Pulse Resp BP BP BP 09/18/22 11:29 36.4 C 72 18 115/64 09/18/22 11:00 68 23 09/18/22 10:59 65 20 09/18/22 10:59 127/70 09/18/22 10:58 109/64 09/18/22 10:58 68 24 09/18/22 10:57 66 16 09/18/22 10:57 84 132/71 09/18/22 10:55 77 66 H 09/18/22 09:10 66 18 09/18/22 09:10 119/60 09/18/22 09:05 72 18 09/18/22 09:05 116/68 09/18/22 09:00 57 L 17 09/18/22 08:00 62 15 09/18/22 07:33 63 19 09/18/22 07:33 112/58 L 09/18/22 07:00 66 17 09/18/22 06:00 70 14 09/18/22 05:00 65 20 09/18/22 04:00 66 33 H 09/18/22 03:02 70 31 H 09/18/22 03:02 97/61 L 09/18/22 03:00 75 20 09/18/22 02:00 69 17 09/18/22 01:00 72 17 09/18/22 09:00 68 09/18/22 09:00 09/18/22 08:00 36.6 C 62 22 112/58 L 09/18/22 03:04 36.7 C 64 16 99/62 L 09/18/22 02:59 36.7 C 72 22 97/61 L Pulse Ox O2 Del Method 09/18/22 11:29 93 09/18/22 11:00 94 09/18/22 10:59 93 09/18/22 10:59 09/18/22 10:58 09/18/22 10:58 94 09/18/22 10:57 91 09/18/22 10:57 09/18/22 10:55 09/18/22 09:10 87 L 09/18/22 09:10 09/18/22 09:05 09/18/22 09:05 09/18/22 09:00 09/18/22 08:00 09/18/22 07:33 92 09/18/22 07:33 09/18/22 07:00 09/18/22 06:00 09/18/22 05:00 09/18/22 04:00 09/18/22 03:02 09/18/22 03:02 09/18/22 03:00 09/18/22 02:00 09/18/22 01:00 09/18/22 09:00 09/18/22 09:00 Room Air 09/18/22 08:00 93 Room Air 09/18/22 03:04 92 Room Air 09/18/22 02:59 91 Room Air Laboratory Results WBC 4.29, Hb 12.9, HCT 37.6, PLT 69, PT 16, INR 1.6, NA 139, K3.6, CL 105, CO2 27, BUN 23, CR 1.16, glucose 92. T. bili 7-> 5.7 AST 53->42, ALT 26->21, Alk Phos 136->106 Diagnostic Findings US guided bx 09/18/22: Successful ultrasound guided 22-gauge fine needle aspiration of a 4.1cm llateral segment hepatic mass.
[2022-09-18] MEDS: SPIRONOLACTONE 25 MG TAB PO SCH (12:40)
--- NOTE | 2022-09-18 14:37 | Hospitalist Progress Note ---
Date of Service September 18, 2022 Assessment & Plan (1) Anasarca: (2) Liver masses: (3) Hyperbilirubinemia: (4) Pulmonary edema: (5) Afib: (6) Elevated troponin I level: (7) Abnormal EKG: (8) Thrombocytopenia: (9) Alcohol abuse: Plan Patient is a 81 yr male with H/O gout who presents to ER secondary to referral by PCP to abnormal labs. Reports ongoing shortness of breath for approximately the past 6 weeks. He was seen by PCP on 09/15 and underwent lab work which revea led hyperbilirubinemia and elevated BNP. He also was hypoxic with exertion in outpatient clinic and was referred to ED. Patient reports hx of alcohol abuse with 2 cases of beer/wk since age 14. 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 Diminutive main, left and right portal veins which are likely patent. Numerous hypodense hepatic masses. These are likely neoplastic and favor primary liver malignancy, such as hepatocellular carcinoma, with metastases or metastatic disease of unknown primary. Although regenerative nodules are technically within the differential, this is considered much less likely. Findings could be correlated with AFP level. Lateral segment lesions would likely be amenable to ultrasound-guided biopsy. Cardiomegaly, pulmonary edema, small bilateral pleural effusions and anasarca. P --Gall Bladder USD:Heterogeneity of the liver suggestive of cirrhosis. Splenomegaly and ascites suggest portal hypertension. Diminished portal flow which could reflect slow flow or portal venous thrombus. Suspected hypoechoic hepatic lesions which may be neoplastic/metastatic. Liver protocol CT with and without contrast is recommended for further evaluation. No gallstones or biliary ductal dilatation. 5.2 cm mass-like hypoechoic focus within or adjacent to the pancreatic head. This could reflect a pancreatic mass or enlarged lymph node and can be assessed on CT. --AFP, CA 19-9 antigen pending --CEA normal -- Immunological studies, flow cytometry pending --S/P Liver Biopsy on 09/18/22: Pathology is pending -- Monitor LFTs Counseled to quit alcohol use Avoid hepatotoxic agents as able Appreciate GI input Will need outpatient EGD, colonoscopy Monitor volume status Saturating well on room air Will consider Oncology evaluation based on the liver biopsy/Tumor marker results IV Lasix transitioned to PO Lasix, Aldactone Alcohol use disorder Counseled to quit drinking On gabapentin protocol Continue thiamine, folic acid Monitor for withdrawal Bifascicular block A-fib ruled out First-degree AV block, intermittent Mobitz type I second-degree AV block Avoid AV betsy blocking agents Appreciate cardiology input Thyroid function test normal Appreciate cardiology input Thrombocytopenia Likely due to liver disease No bleeding issues Monitor platelets Troponin elevation likely secondary to volume overload Less Likely ACS --ECHO: Left ventricle is normal in size. Moderate concentric LVH. Left ventricle wall motion is normal. EF 50 to 55%. Left atrium is mildly dilated. Right atrium is moderately dilated. Aortic valve sclerosis moderate, without significant aortic valvular stenosis. Mild mitral regurgitation. Moderate to severe tricuspid regurgitation. Patient denies chest pain Echo showed no wall motion abnormality DVT Px: SCDs for now Re: Thrombocytopenia Code Status FULL CODE Disposition PT/OT prior to discharge Admission and Anticipated Discharge Date Admission Date: September 16, 2022 Subjective Patient is seen and examined at bedside No new complaints Had liver biopsy earlier today Dyspnea, leg swelling improved No signs of alcohol withdrawal currently Denies any chest pain, abdominal pain, nausea, dizziness Saturating well on room air Review of Systems Review of Systems: All systems reviewed & are unremarkable except as noted in Subjective Physical Exam Physical Exam: Physical Exam: Vitals signs as noted above General Appearance:Obese, no apparent distress Head: normocephalic, Atraumatic Eyes: normal inspection, EOMI, +Icteric Neck: supple, Trachea midline Respiratory/Chest: Normal breath sounds, basal crackles, No accessory muscle use Cardiovascular: Irregularly irregular, No murmur Abdomen/GI:Soft, Non tender, distended, bowel sounds present Extremities/Musculoskeletal:normal inspection, 3+ B/L LE edema Neurologic/Psych:AAOX3, grossly no focal neurological deficits Skin: normal color, warm, + jaundice Results & Data Results & Data ([facility]) Vital Signs (Past 12 Hours) Vital Signs Temp Pulse Pulse Resp BP BP BP 09/18/22 11:29 36.4 C 72 18 115/64 09/18/22 11:00 68 23 09/18/22 10:59 65 20 09/18/22 10:59 127/70 09/18/22 10:58 109/64 02/16/23 10:58 68 24 09/18/22 10:57 66 16 09/18/22 10:57 84 132/71 09/18/22 10:55 77 66 H 09/18/22 09:10 66 18 09/18/22 09:10 119/60 09/18/22 09:05 72 18 09/18/22 09:05 116/68 09/18/22 09:00 57 L 17 09/18/22 08:00 62 15 09/18/22 07:33 63 19 09/18/22 07:33 112/58 L 09/18/22 07:00 66 17 09/18/22 06:00 70 14 09/18/22 05:00 65 20 09/18/22 04:00 66 33 H 09/18/22 03:02 70 31 H 09/18/22 03:02 97/61 L 09/18/22 03:00 75 20 09/18/22 09:00 68 09/18/22 09:00 09/18/22 08:00 36.6 C 62 22 112/58 L 09/18/22 03:04 36.7 C 64 16 99/62 L 09/18/22 02:59 36.7 C 72 22 97/61 L Pulse Ox O2 Del Method 09/18/22 11:29 93 09/18/22 11:00 94 09/18/22 10:59 93 09/18/22 10:59 09/18/22 10:58 09/18/22 10:58 94 09/18/22 10:57 91 09/18/22 10:57 09/18/22 10:55 09/18/22 09:10 87 L 09/18/22 09:10 09/18/22 09:05 09/18/22 09:05 09/18/22 09:00 09/18/22 08:00 09/18/22 07:33 92 09/18/22 07:33 09/18/22 07:00 09/18/22 06:00 09/18/22 05:00 09/18/22 04:00 09/18/22 03:02 09/18/22 03:02 09/18/22 03:00 09/18/22 09:00 09/18/22 09:00 Room Air 09/18/22 08:00 93 Room Air 09/18/22 03:04 92 Room Air 09/18/22 02:59 91 Room Air Laboratory Results Short CBC 09/18/22 Range/Units 06:35 WBC 4.29 L (4.8-10.8) K/ul Hgb 12.9 L (14.0-18.0) g/dl Hct 37.6 L (42.0-52.0) % Plt Count 69 L (130-400) K/uL BMP 09/18/22 06:35 Sodium 139 Potassium 3.6 Chloride 105 Carbon Dioxide 27 BUN 23 Creatinine 1.16 Glucose 92 Calcium 8.9 Liver Function 09/18/22 Range/Units 06:35 Total Bilirubin 5.7 H (0.2-1.0) mg/dl AST 42 H (13-39) U/L ALT 21 (7-52) U/L Alkaline Phosphatase 106 H (34-104) U/L Albumin 2.9 L (3.4-5.0) gm/dl (4) Pulmonary edema Chronicity: acute Qualified Code(s): J81.0 - Acute pulmonary edema
[2022-09-18 14:46] LABS: Anti Mitochondrial Antibody NEGATIVE (NEGATIVE); Anti Nuclear Antibody Screen NEGATIVE (NEGATIVE); Smooth Muscle Antibody NEGATIVE (NEGATIVE); Transglutaminase, Tissue IgA <1.0 U/mL
[2022-09-18] MEDS: FUROSEMIDE 40 MG TAB PO SCH (17:29)
[2022-09-19] MEDS: GABAPENTIN 600 MG TAB PO SCH (05:58)
[2022-09-19 06:09] LABS: Basophils # (auto) 0.02 K/uL (0-0.2); Basophils % (auto) 0.6 %; Eosinophils # (auto) 0.13 K/uL (0-0.50); Eosinophils % (auto) 3.8 %; Hematocrit (blood only) 37.1 % (42.0-52.0); Hemoglobin 12.9 g/dl (14.0-18.0); Immature Granulocytes # (auto) 0.01 K/uL (0.01-0.20); Immature Granulocytes % (auto) 0.3 %; Lymphocytes # (auto) 0.75 K/uL (1.2-3.4); Lymphocytes % (auto) 21.7 %; Mean Corpuscular Hemoglobin 34.3 pg (25.0-34.0); Mean Corpuscular Hgb Conc 34.8 g/dL (32.0-36.0); Mean Corpuscular Volume 98.7 fL (80.0-100.0); Mean Platelet Volume 10.4 fL (9.4-12.4); Monocytes # (auto) 0.43 K/uL (0.11-0.59); Monocytes % (auto) 12.4 %; Neutrophils # (auto) 2.12 K/uL (1.40-6.50); Neutrophils % (auto) 61.2 %; Platelet Count 53 K/uL (130-400); RDW Coefficient of Variation 14.9 % (11.5-14.5); Red Blood Count 3.76 M/uL (4.70-6.10); White Blood Count 3.46 K/ul (4.8-10.8)
[2022-09-19 06:15] LABS: Albumin Level 2.9 gm/dl (3.4-5.0); BUN Creatinine Ratio 23.1 (10-20); Bilirubin Direct 1.8 mg/dl (0-0.2); Bilirubin,Total 5.3 mg/dl (0.2-1.0); Calcium 8.7 mg/dl (8.5-10.1); Est GFR (African American) 75.3 ml/min; Est GFR (Non-African American) 64.9 ml/min; Magnesium 1.7 mg/dl (1.7-2.4); Potassium 3.7 mmol/L (3.5-5.1); Total Protein 6.2 gm/dl (6.0-8.3)
[2022-09-19 06:22] LABS: INR 1.7 (0.9-1.1); Prothrombin Time 17.3 Seconds (9.0-12.0)
[2022-09-19] MEDS: FUROSEMIDE 40 MG TAB PO SCH ×2 (09:10→17:07)
[2022-09-19] MEDS: SPIRONOLACTONE 25 MG TAB PO SCH (09:10)
[2022-09-19] MEDS: CEROVITE ADV FORMULA TAB PO SCH (09:11)
[2022-09-19] MEDS: FOLIC ACID 1 MG TAB PO SCH (09:11)
[2022-09-19] MEDS: THIAMINE HCL 100 MG TAB PO SCH (09:11)
--- NOTE | 2022-09-19 15:00 | Hospitalist Progress Note ---
Date of Service September 19, 2022 Assessment & Plan (1) Anasarca: (2) Liver masses: (3) Hyperbilirubinemia: (4) Pulmonary edema: (5) Afib: (6) Elevated troponin I level: (7) Abnormal EKG: (8) Thrombocytopenia: (9) Alcohol abuse: Plan Patient is a 81 yr male with H/O gout who presents to ER secondary to referral by PCP to abnormal labs. Reports ongoing shortness of breath for approximately the past 6 weeks. He was seen by PCP on 09/15 and underwent lab work which revea led hyperbilirubinemia and elevated BNP. He also was hypoxic with exertion in outpatient clinic and was referred to ED. Patient reports hx of alcohol abuse with 2 cases of beer/wk since age 14. 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 Diminutive main, left and right portal veins which are likely patent. Numerous hypodense hepatic masses. These are likely neoplastic and favor primary liver malignancy, such as hepatocellular carcinoma, with metastases or metastatic disease of unknown primary. Although regenerative nodules are technically within the differential, this is considered much less likely. Findings could be correlated with AFP level. Lateral segment lesions would likely be amenable to ultrasound-guided biopsy. Cardiomegaly, pulmonary edema, small bilateral pleural effusions and anasarca. P --Gall Bladder USD:Heterogeneity of the liver suggestive of cirrhosis. Splenomegaly and ascites suggest portal hypertension. Diminished portal flow which could reflect slow flow or portal venous thrombus. Suspected hypoechoic hepatic lesions which may be neoplastic/metastatic. Liver protocol CT with and without contrast is recommended for further evaluation. No gallstones or biliary ductal dilatation. 5.2 cm mass-like hypoechoic focus within or adjacent to the pancreatic head. This could reflect a pancreatic mass or enlarged lymph node and can be assessed on CT. --AFP, CA 19-9 antigen pending --CEA normal -- Immunological studies, flow cytometry pending --S/P Liver Biopsy on 09/18/22: Pathology is pending -- Monitor LFTs - Counseling on alcohol cessation Avoid hepatotoxic agents as able Gastro on board recommended outpatient EGD, colonoscopy Will consider Oncology evaluation based on the liver biopsy/Tumor marker results Continue PO Lasix, Aldactone Alcohol use disorder Counseling on alcohol cessation Continue gabapentin for alcohol withdrawal protocol Continue thiamine, folic acid Monitor for alcohol withdrawal symptoms and DT Bifascicular block A-fib ruled out First-degree AV block, intermittent Mobitz type I second-degree AV block Avoid AV betsy blocking agents Cardiology on board Thyroid function test normal Thrombocytopenia Likely due to liver disease No sign of bleeding Platelet 53 today Continue monitor platelets Troponin elevation likely secondary to volume overload Less Likely ACS --ECHO: Left ventricle is normal in size. Moderate concentric LVH. Left ventricle wall motion is normal. EF 50 to 55%. Left atrium is mildly dilated. Right atrium is moderately dilated. Aortic valve sclerosis moderate, without significant aortic valvular stenosis. Mild mitral regurgitation. Moderate to severe tricuspid regurgitation. Patient denies chest pain Echo showed no wall motion abnormality DVT Px: SCDs for now Re: Thrombocytopenia Code Status FULL CODE Disposition Consider inpatient therapy INR 1.7 due to liver disease Admission and Anticipated Discharge Date Admission Date: September 16, 2022 Subjective Patient was seen and examined at bedside Sitting in chair with no acute acute distress Pt had physical therapy done early He said that at the end of the walk, he feels alittle SOB He denies any sign of alcohol withdrawal Denies any chest pain, abdominal pain, nausea, dizziness Review of Systems Review of Systems: All systems reviewed & are unremarkable except as noted in Subjective Physical Exam Physical Exam: General- No acute distress Head- atraumatic Eyes- PERRL, EOMI, +Icterus ENT- oropharynx clear Neck- supple, no JVD Lungs- +diminished BS Heart- regular rhythm; no murmur Abdomen- normal bowel sounds, soft, nontender Extremities- no calf tenderness, +edema Neuro- alert, oriented x 3; PERRL, EOMI; no facial palsy; no dysarthria Skin- warm & dry Results & Data Results & Data ([facility]) Vital Signs (Past 12 Hours) Vital Signs Temp Pulse Resp BP Pulse Ox O2 Del Method 09/19/22 12:42 36.4 C L 76 16 123/67 94 Room Air 09/19/22 07:14 36.4 C L 73 16 118/61 91 Room Air 09/19/22 03:13 36.5 C 78 18 101/63 90 Room Air (4) Pulmonary edema Chronicity: acute Qualified Code(s): J81.0 - Acute pulmonary edema
[2022-09-20] MEDS ORDERED: GABAPENTIN 600 MG TAB PO SCH (06:00)
[2022-09-20 06:52] LABS: Hematocrit (blood only) 39.5 % (42.0-52.0); Hemoglobin 13.4 g/dl (14.0-18.0); Mean Corpuscular Hemoglobin 34.1 pg (25.0-34.0); Mean Corpuscular Hgb Conc 33.9 g/dL (32.0-36.0); Mean Corpuscular Volume 100.5 fL (80.0-100.0); Platelet Count 54 K/uL (130-400); RDW Coefficient of Variation 14.6 % (11.5-14.5); RDW Standard Deviation 53.9 fL (36.4-46.3); Red Blood Count 3.93 M/uL (4.70-6.10); White Blood Count 3.46 K/ul (4.8-10.8)
[2022-09-20 07:14] LABS: Albumin Globulin Ratio 0.9 (0.9-2); Albumin Level 2.9 gm/dl (3.4-5.0); BUN Creatinine Ratio 22.3 (10-20); Bilirubin,Total 5.4 mg/dl (0.2-1.0); Calcium 8.7 mg/dl (8.5-10.1); Creatinine Clr Calc Pharmacy 66.5 ml/min; Est GFR (Non-African American) 76.8 ml/min; Globulin 3.2 gm/dl (2.5-4.0); Potassium 3.6 mmol/L (3.5-5.1); Total Protein 6.1 gm/dl (6.0-8.3)
[2022-09-20] MEDS: FUROSEMIDE 40 MG TAB PO SCH ×2 (09:05→17:17)
[2022-09-20] MEDS: THIAMINE HCL 100 MG TAB PO SCH (09:05)
[2022-09-20] MEDS: FOLIC ACID 1 MG TAB PO SCH (09:05)
[2022-09-20] MEDS: CEROVITE ADV FORMULA TAB PO SCH (09:05)
[2022-09-20] MEDS: SPIRONOLACTONE 25 MG TAB PO SCH (09:05)
--- NOTE | 2022-09-20 15:27 | Hospitalist Progress Note ---
Date of Service September 20, 2022 Assessment & Plan (1) Anasarca: (2) Liver masses: (3) Hyperbilirubinemia: (4) Pulmonary edema: (5) Afib: (6) Elevated troponin I level: (7) Abnormal EKG: (8) Thrombocytopenia: (9) Alcohol abuse: Plan Patient is a 81 yr male with H/O gout who presents to ER secondary to referral by PCP to abnormal labs. Reports ongoing shortness of breath for approximately the past 6 weeks. He was seen by PCP on 09/15 and underwent lab work which revea led hyperbilirubinemia and elevated BNP. He also was hypoxic with exertion in outpatient clinic and was referred to ED. Patient reports hx of alcohol abuse with 2 cases of beer/wk since age 14. 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 Diminutive main, left and right portal veins which are likely patent. Numerous hypodense hepatic masses. These are likely neoplastic and favor primary liver malignancy, such as hepatocellular carcinoma, with metastases or metastatic disease of unknown primary. Although regenerative nodules are technically within the differential, this is considered much less likely. Findings could be correlated with AFP level. Lateral segment lesions would likely be amenable to ultrasound-guided biopsy. Cardiomegaly, pulmonary edema, small bilateral pleural effusions and anasarca. P --Gall Bladder USD:Heterogeneity of the liver suggestive of cirrhosis. Splenomegaly and ascites suggest portal hypertension. Diminished portal flow which could reflect slow flow or portal venous thrombus. Suspected hypoechoic hepatic lesions which may be neoplastic/metastatic. Liver protocol CT with and without contrast is recommended for further evaluation. No gallstones or biliary ductal dilatation. 5.2 cm mass-like hypoechoic focus within or adjacent to the pancreatic head. This could reflect a pancreatic mass or enlarged lymph node and can be assessed on CT. --AFP, CA 19-9 antigen pending --CEA normal -- Immunological studies, flow cytometry pending --S/P Liver Biopsy on 09/18/22: Pathology is pending -- Monitor LFTs - Counseling on alcohol cessation Avoid hepatotoxic agents as able Gastro on board recommended outpatient EGD, colonoscopy Will consider outpatient Oncology evaluation based on the liver biopsy/Tumor marker results Continue PO Lasix, Aldactone Alcohol use disorder Counseling on alcohol cessation Continue gabapentin for alcohol withdrawal protocol Continue thiamine, folic acid Monitor for alcohol withdrawal symptoms and DT Bifascicular block A-fib ruled out First-degree AV block, intermittent Mobitz type I second-degree AV block Avoid AV betsy blocking agents Cardiology on board Thyroid function test normal Thrombocytopenia Likely due to liver disease No sign of bleeding Platelet 54 today Continue monitor platelets Troponin elevation likely secondary to volume overload Less Likely ACS --ECHO: Left ventricle is normal in size. Moderate concentric LVH. Left ventricle wall motion is normal. EF 50 to 55%. Left atrium is mildly dilated. Right atrium is moderately dilated. Aortic valve sclerosis moderate, without significant aortic valvular stenosis. Mild mitral regurgitation. Moderate to severe tricuspid regurgitation. Patient denies chest pain Echo showed no wall motion abnormality DVT Px: SCDs for now Re: Thrombocytopenia Code Status FULL CODE Disposition Consider inpatient therapy INR 1.7 due to liver disease Disposition Pt not interested to go to rehab. Plan to go home with home health Admission and Anticipated Discharge Date Admission Date: September 16, 2022 Subjective Patient was seen and examined at bedside Sitting in chair with no acute acute distress Pt said that he feels OK He denies any sign of alcohol withdrawal Denies any chest pain, abdominal pain, nausea, dizziness Review of Systems Review of Systems: All systems reviewed & are unremarkable except as noted in Subjective Physical Exam Physical Exam: General- No acute distress Head- atraumatic Eyes- PERRL, EOMI, +Icterus ENT- oropharynx clear Neck- supple, no JVD Lungs- +diminished BS Heart- regular rhythm; no murmur Abdomen- normal bowel sounds, soft, nontender Extremities- no calf tenderness, +edema Neuro- alert, oriented x 3; PERRL, EOMI; no facial palsy; no dysarthria Skin- warm & dry Results & Data Results & Data ([facility]) Vital Signs (Past 12 Hours) Vital Signs Temp Pulse Resp BP Pulse Ox O2 Del Method 09/20/22 10:44 36.6 C 83 25 H 119/68 95 Room Air 09/20/22 08:00 Room Air 09/20/22 07:41 36.7 C 87 15 126/87 90 Room Air (4) Pulmonary edema Chronicity: acute Qualified Code(s): J81.0 - Acute pulmonary edema
[2022-09-21] MEDS: THIAMINE HCL 100 MG TAB PO SCH (08:13)
[2022-09-21] MEDS: FOLIC ACID 1 MG TAB PO SCH (08:13)
[2022-09-21] MEDS: FUROSEMIDE 40 MG TAB PO SCH (08:13)
[2022-09-21] MEDS: CEROVITE ADV FORMULA TAB PO SCH (08:13)
[2022-09-21] MEDS: SPIRONOLACTONE 25 MG TAB PO SCH (08:13)
--- NOTE | 2022-09-21 12:09 | Hospitalist Progress Note ---
Date of Service September 21, 2022 Assessment & Plan (1) Anasarca: (2) Liver masses: (3) Hyperbilirubinemia: (4) Pulmonary edema: (5) Afib: (6) Elevated troponin I level: (7) Abnormal EKG: (8) Thrombocytopenia: (9) Alcohol abuse: Plan Patient is a 81 yr male with H/O gout who presents to ER secondary to referral by PCP to abnormal labs. Reports ongoing shortness of breath for approximately the past 6 weeks. He was seen by PCP on 09/15 and underwent lab work which revea led hyperbilirubinemia and elevated BNP. He also was hypoxic with exertion in outpatient clinic and was referred to ED. Patient reports hx of alcohol abuse with 2 cases of beer/wk since age 14. 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 Diminutive main, left and right portal veins which are likely patent. Numerous hypodense hepatic masses. These are likely neoplastic and favor primary liver malignancy, such as hepatocellular carcinoma, with metastases or metastatic disease of unknown primary. Although regenerative nodules are technically within the differential, this is considered much less likely. Findings could be correlated with AFP level. Lateral segment lesions would likely be amenable to ultrasound-guided biopsy. Cardiomegaly, pulmonary edema, small bilateral pleural effusions and anasarca. P --Gall Bladder USD:Heterogeneity of the liver suggestive of cirrhosis. Splenomegaly and ascites suggest portal hypertension. Diminished portal flow which could reflect slow flow or portal venous thrombus. Suspected hypoechoic hepatic lesions which may be neoplastic/metastatic. Liver protocol CT with and without contrast is recommended for further evaluation. No gallstones or biliary ductal dilatation. 5.2 cm mass-like hypoechoic focus within or adjacent to the pancreatic head. This could reflect a pancreatic mass or enlarged lymph node and can be assessed on CT. --Alpha-fetoprotein is pending, CA 199 is pending --CEA normal -- Immunological studies-savi antimitochondrial antibody and anti-smooth muscle antibodies are negative. Tissue transglutaminase IgA less than 1.0 --Flow cytometry is pending and miscellaneous genetic test is pending --S/P Liver Biopsy on 09/18/22: Pathology is pending -- Monitor LFTs-minimally high with bilirubin of 5.4 and AST 42 with normal alkaline phosphatase - Counseling on alcohol cessation Avoid hepatotoxic agents as able Gastro on board recommended outpatient EGD, colonoscopy Will consider outpatient Oncology evaluation based on the liver biopsy/Tumor marker results Continue PO Lasix, Aldactone Has been feeling much better and will be discharged home this afternoon Alcohol use disorder Counseling on alcohol cessation Continue gabapentin for alcohol withdrawal protocol Continue thiamine, folic acid Monitor for alcohol withdrawal symptoms and DT Bifascicular block A-fib ruled out First-degree AV block, intermittent Mobitz type I second-degree AV block Avoid AV betsy blocking agents Cardiology on board -appreciate input and recommendation Thyroid function test normal Thrombocytopenia Likely due to liver disease No sign of bleeding Platelet 54 today Continue monitor platelets Troponin elevation likely secondary to volume overload Less Likely ACS --ECHO: Left ventricle is normal in size. Moderate concentric LVH. Left ventricle wall motion is normal. EF 50 to 55%. Left atrium is mildly dilated. Right atrium is moderately dilated. Aortic valve sclerosis moderate, without significant aortic valvular stenosis. Mild mitral regurgitation. Moderate to severe tricuspid regurgitation. Patient denies chest pain Echo showed no wall motion abnormality Doubt any ACS DVT Px: SCDs for now Re: Thrombocytopenia Code Status FULL CODE Disposition Consider inpatient therapy INR 1.7 due to liver disease Disposition Pt not interested to go to rehab. Plan to go home with home health Will be discharged home this afternoon Admission and Anticipated Discharge Date Admission Date: September 16, 2022 Subjective 09/21/2022 The patient was seen and examined in telemetry unit He is out of bed on a chair Denies any significant symptoms at rest Has had physical therapy and recommended rehab but the patient refused to go to rehab He will be discharged home this afternoon Review of Systems Review of Systems: All systems reviewed and are unremarkable except as noted below Physical Exam Physical Exam: Sitting on a chair without any acute distress Constitutional: well developed, well nourished, + ill appearing and + obese Eyes: PERRL, conjunctivae normal, anicteric sclerae ENMT: external ear and nose normal, oropharynx normal Neck: trachea midline, no thyromegaly Respiratory: no respiratory distress Auscultation: + diminished lung sounds and + crackles (Minimal crackles at the bases) Cardiovascular: Rate/Rhythm: regular rate and regular rhythm; not tachycardic Heart Sounds: normal S1, normal S2 and + murmur Extremities: + edema (Chronic edema trace to 1+) Gastrointestinal (Abdomen): Inspection/Auscultation: + abdomen distended and normal bowel sounds Percussion/Palpation: abdomen soft; abdomen nontender Musculoskeletal: No acute arthritis involving any joint Neurologic: normal touch/pain/proprioception and moves all extremities; no focal motor deficits Lymphatic: no cervical or axillary lymphadenopathy Results & Data Results & Data ([facility]) Vital Signs (Past 12 Hours) Vital Signs Temp Pulse Pulse Resp BP BP Pulse Ox 09/21/22 10:47 36.9 C 97 H 24 126/71 98 09/21/22 07:47 73 09/21/22 07:36 09/21/22 07:11 36.7 C 85 22 135/69 93 09/21/22 03:20 36.9 C 84 17 119/70 93 O2 Del Method 09/21/22 10:47 Room Air 09/21/22 07:47 09/21/22 07:36 Room Air 09/21/22 07:11 Room Air 09/21/22 03:20 Room Air Medications Administered Current Inpatient Medications Acetaminophen (Acetaminophen 325 Mg Tab) 650 mg PO Q4H PRN PRN Reason: Pain or Fever Stop: 10/16/22 18:40 Al Hydrox/Mg Hydrox/Simethicone (Aluminum/Magnesium Susp 30 Ml Udc) 15 ml PO Q4H PRN PRN Reason: Dyspepsia Stop: 10/16/22 18:40 Folic Acid (Folic Acid 1 Mg Tab) 1 mg PO QAM [facility] Stop: 10/17/22 08:59 Last Admin: 09/21/22 08:13 Dose: 1 mg Furosemide (Furosemide 40 Mg Tab) 40 mg PO BID17 [facility] Stop: 10/18/22 16:59 Last Admin: 09/21/22 08:13 Dose: 40 mg Heparin Sodium (Porcine) (Heparin Sod 5,000 Unit/0.5 Ml Vial) 5,000 units SQ Q8 YOHANNES Stop: 10/16/22 21:59 Last Admin: 09/17/22 06:09 Dose: 5,000 units Promethazine HCl 12.5 mg/ (Sodium Chloride) 50.5 mls @ 202 mls/hr IV Q6H PRN PRN Reason: Nausea And Vomiting Stop: 10/16/22 18:40 Levalbuterol HCl (Levalbuterol Hcl 0.63 Mg/3 Ml Neb) 0.63 mg NEB Q6R PRN; Ale col PRN Reason: sob/wheezing Stop: 10/16/22 18:40 Lorazepam (Lorazepam 2 Mg/1 Ml Vial) 1 mg IV ONE PRN; Protocol PRN Reason: EtoH Withdrawal AWSS 6,7,8,9,10 Magnesium Hydroxide (Magnesium Hydroxide Susp 30 Ml Udc) 30 ml PO Q12H PRN PRN Reason: Constipation Stop: 10/16/22 18:40 Last Admin: 09/18/22 13:51 Dose: 30 ml Multivitamins/Minerals (Cerovite Adv Formula Tab) 1 tab PO DAILY YOHANNES Stop: 10/17/22 08:59 Last Admin: 09/21/22 08:13 Dose: 1 tab Polyethylene Glycol (Polyethylene (Miralax) 17 Gm Pack) 17 gm PO DAILY PRN PRN Reason: Constipation Stop: 10/16/22 18:40 Spironolactone (Spironolactone 25 Mg Tab) 25 mg PO QAM [facility] Stop: 10/18/22 12:14 Last Admin: 09/21/22 08:13 Dose: 25 mg Thiamine HCl (Thiamine Hcl 100 Mg Tab) 100 mg PO QAM [facility] Stop: 10/17/22 08:59 Last Admin: 09/21/22 08:13 Dose: 100 mg (4) Pulmonary edema Chronicity: acute Qualified Code(s): J81.0 - Acute pulmonary edema
--- NOTE | 2022-09-21 17:27 | Discharge Summary ---
Date of Service September 21, 2022 Admission HPI Per Admitting Provider This is a 81-year-old male with significant past medical history of gout who presents to ER secondary to referral by PCP to abnormal labs. He was seen by KATIE yesterday secondary to generally feeling unwell for the past 6 weeks. Apparently had been sick 6 weeks ago and he has had a persistent cough and progressive shortness of breath. He also has chronic lower extremity edema. He presented to PCP and had blood work done which revealed an elevated bilirubin of 5.5, AST 58, alk phos 147, thrombocytopenia 69 and BNP at 524. He apparently was hypoxic with exertion in office but declined ER evaluation. He received IM Rocephin and was prescribed oral antibiotics. Due to elevated bilirubin he was referred to ED today. Pt reports he had covid in March of 2022 and was SOB and went away, and then it started again approx 6 weeks ago. SOB is mostly with exertion. If he is resting he does not feel SOB. is at bedside and she reports he seems SOB when he lays in bed at night. He denies orthopnea or PND, but starts he prefers the recliner at night. He further complains of sinus pain/pressure and swelling under eyes. He was blaming this on a sinus infection. denies confusion. He complains of difficulty urinating but denies dysuria, increased frequency or urgency. Pt denies f/c/s,dizziness, lightheaded, chest pain, cough, n/v/d, abd pain. + Weight gain of 25lbs in the past couple weeks. He reports feeling off balance and bad knees. He occasionally uses a cane. He fell 3 weeks ago but tripped over a carpet. Otherwise no falls. Overall appetite isn't great. reports he drinks to much so he doesn't eat. He has drank beer since he has been 14, 2 cases a week. He denies hx of hepatitis. He denies frequent use of tylenol. Admission Exam Per Admitting Provider Vitals signs as noted above General Appearance:Obese, no apparent distress Head: normocephalic, Atraumatic Eyes: normal inspection, EOMI, +Icteric Neck: supple, Trachea midline Respiratory/Chest: Normal breath sounds, basal crackles,, No accessory muscle use Cardiovascular: Irregularly irregular, No murmur Abdomen/GI:Soft, Non tender, distended, bowel sounds present Extremities/Musculoskeletal:normal inspection, 3+ B/L LE edema Neurologic/Psych:AAOX3, grossly no focal neurological deficits Skin: normal color, warm, + jaundice Principal Diagnosis Anasarca ,decompensated cirrhosis, liver mass, bifascicular block Discharge Exam Sitting on a chair without any acute distress Constitutional well developed, well nourished, + ill appearing and + obese Eyes PERRL, conjunctivae normal, anicteric sclerae ENMT external ear and nose normal, oropharynx normal Neck trachea midline, no thyromegaly Respiratory no respiratory distress Auscultation: + diminished lung sounds and + crackles (Minimal crackles at the bases) Cardiovascular Rate/Rhythm: regular rate and regular rhythm; not tachycardic Heart Sounds: normal S1, normal S2 and + murmur Extremities: + edema (Chronic edema trace to 1+) Gastrointestinal (Abdomen) Inspection/Auscultation: + abdomen distended and normal bowel sounds Percussion/Palpation: abdomen soft; abdomen nontender Neurologic normal touch/pain/proprioception and moves all extremities; no focal motor deficits Lymphatic no cervical or axillary lymphadenopathy Discharge Data Allergies Allergy/AdvReac Type Severity Reaction Status Date / Time No Known Allergies Allergy Unverified 09/16/22 16:52 Consultations 09/16/22 16:21 ED Decision to Admit Stat 09/16/22 17:11 Consult Cardiology Routine Consult Gastroenterology Routine Ordered Studies 09/16/22 12:48 US gallbladder Stat 09/16/22 14:31 CT abdomen pelvis wo/w con Stat 09/18/22 US abdomen ltd ascites Routine 09/18/22 08:26 US FNA w/img 1st lesion Routine Hospital Course (1) Anasarca: (2) Liver masses: (3) Hyperbilirubinemia: (4) Pulmonary edema: (5) Afib: (6) Elevated troponin I level: (7) Abnormal EKG: (8) Thrombocytopenia: (9) Alcohol abuse: Plan Patient is a 81 yr male with H/O gout who presents to ER secondary to referral by PCP to abnormal labs. Reports ongoing shortness of breath for approximately the past 6 weeks. He was seen by PCP on 09/15 and underwent lab work which revealed hyperbilirubinemia and elevated BNP. He also was hypoxic with exertion in outpatient clinic and was referred to ED. Patient reports hx of alcohol abuse with 2 cases of beer/wk since age 14. 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 Diminutive main, left and right portal veins which are likely patent. Numerous hypodense hepatic masses. These are likely neoplastic and favor primary liver malignancy, such as hepatocellular carcinoma, with metastases or metastatic disease of unknown primary. Although regenerative nodules are technically within the differential, this is considered much less likely. Findings could be correlated with AFP level. Lateral segment lesions would likely be amenable to ultrasound-guided biopsy. Cardiomegaly, pulmonary edema, small bilateral pleural effusions and anasarca. P --Gall Bladder USD:Heterogeneity of the liver suggestive of cirrhosis. Splenomegaly and ascites suggest portal hypertension. Diminished portal flow which could reflect slow flow or portal venous thrombus. Suspected hypoechoic hepatic lesions which may be neoplastic/metastatic. Liver protocol CT with and without contrast is recommended for further evaluation. No gallstones or biliary ductal dilatation. 5.2 cm mass-like hypoechoic focus within or adjacent to the pancreatic head. This could reflect a pancreatic mass or enlarged lymph node and can be assessed on CT. --Alpha-fetoprotein is pending, CA 199 is pending --CEA normal -- Immunological studies-savi antimitochondrial antibody and anti-smooth muscle antibodies are negative. Tissue transglutaminase IgA less than 1.0 --Flow cytometry is pending and miscellaneous genetic test is pending --S/P Liver Biopsy on 09/18/22: Pathology is pending -- Monitor LFTs-minimally high with bilirubin of 5.4 and AST 42 with normal al kaline phosphatase - Counseling on alcohol cessation Avoid hepatotoxic agents as able Gastro on board recommended outpatient EGD, colonoscopy Will consider outpatient Oncology evaluation based on the liver biopsy/Tumor marker results Continue PO Lasix, Aldactone Has been feeling much better and will be discharged home this afternoon Alcohol use disorder Counseling on alcohol cessation Continue gabapentin for alcohol withdrawal protocol Continue thiamine, folic acid Monitor for alcohol withdrawal symptoms and DT Bifascicular block A-fib ruled out First-degree AV block, intermittent Mobitz type I second-degree AV block Avoid AV betsy blocking agents Cardiology on board -appreciate input and recommendation Thyroid function test normal Thrombocytopenia Likely due to liver disease No sign of bleeding Platelet 54 today Continue monitor platelets Troponin elevation likely secondary to volume overload Less Likely ACS --ECHO: Left ventricle is normal in size. Moderate concentric LVH. Left ventricle wall motion is normal. EF 50 to 55%. Left atrium is mildly dilated. Right atrium is moderately dilated. Aortic valve sclerosis moderate, without significant aortic valvular stenosis. Mild mitral regurgitation. Moderate to severe tricuspid regurgitation. Patient denies chest pain Echo showed no wall motion abnormality Doubt any ACS DVT Px: SCDs for now Re: Thrombocytopenia Code Status FULL CODE Disposition Consider inpatient therapy INR 1.7 due to liver disease Disposition Pt not interested to go to rehab. Plan to go home with home health Will be discharged home this afternoon Total Time Total Time Spent Total Time Spent (In Minutes): 35 minutes Discharge Plan Discharge Items Patient Disposition: Home - Home Health Services Reason For Visit: DECOMPENSATED CIRRHOSIS, CHF, NEW LIVER MASSES Discharge Diagnosis: Anasarca ,decompensated cirrhosis, liver mass, bifascicular block Condition on Discharge: Fair Activity: Resume your previous activity Non-emergency contact: Primary Care Provider Call non-emergency contact if: you have any medication questions and your symptoms worsen Follow-up/Referrals: Mynor Kaminski MD [Primary Care Provider] - (Your doctor's office will call you with an appointment within 7 days) Diet: Heart Healthy and Low Sodium (2gm) Fluids: 1800ml (7 cups) Addtl Attending Provider Instructions: Please take precautions to avoid falls Use walker and other devices to prevent fall while ambulating Please take your medications as advised Strongly advised to quit drinking Keep appointments with your healthcare providers You will need to be seen by oncologist if the liver biopsy is showing otherwise Do not take any more indomethacin Pending Studies at Discharge: Yes Studies:: Tumor markers and pathology result of biopsy Stand-Alone Forms: My [facility] [employer], Smoking Cessation Medications and DC Order Prescriptions: New furosemide 40 mg Tablet 40 mg PO BID17 30 Days Qty: 60 0RF spironolactone 25 mg Tablet 25 mg PO QAM 30 Days Qty: 30 0RF folic acid 1 mg Tablet 1 mg PO QAM Qty: 30 0RF thiamine HCl (vitamin B1) 100 mg Tablet 100 mg PO QAM 30 Days Qty: 30 0RF Continued azithromycin 250 mg tablet 250 mg PO DIRECTED Rx Instructions: Do not start yet, ordered 09/15/2022 amoxicillin-pot clavulanate 875-125 mg tablet 1 tab PO DIRECTED Rx Instructions: Do not start yet, ordered 09/15/2022. Take 1 tab bid. Centrum Silver 0.4 mg-300 mcg- 250 mcg Tablet 1 tab PO DAILY Discontinued furosemide 40 mg Tablet 40 mg PO DAILY PRN (Reason: .Leg swelling, fluid accumulation) indomethacin 50 mg Capsule 50 mg PO TID PRN (Reason: Pain) Rx Instructions: administer with food or milk Discharge Orders: Discharge Order (Routine); Ordered 09/21/22 Ordered By: Carly Hatch/Other Patient Handouts: Understanding Deep Vein Thrombosis, DVT Complications, Preventing Deep Vein Thrombosis Admission Data Admit Date/Time: 09/16/22 16:22 Attending Provider: Carly Yu Admit Provider: Mayo Ly Primary Care Provider: Mynor Kaminski Other Providers: Gertrudis Luna ; Elvin Gonzales ; Mayo Ly ; Yogesh Fritz Other Interventions: Discharge Summary Assessment (RN) Last Done: 09/21/22 12:58
[2022-09-22 08:47] LABS: AFP Tumor Marker Serum 6.5 ng/mL (<6.1)
== END 2022-09-21 14:22 | disposition home health service (06) | DRG 433 ==
LOC: ED 10:34 → SUATTDRO 16:22 → 2E 16:22

== ENCOUNTER 2024-03-13 20:50 | Inpatient (IN) ==
--- OUTSIDE RECORDS SUMMARY | 2024-03-13 20:56 | External Medical Summary | Summary of Care ---
Author Name Unknown Organization [facility] Address [address] [facility] [place] [address] Phone [phone] Care Team Providers Care Architecture Manager Name Role Phone Bassem Winters MD Primary Care Provide r Reason for Visit * Reason Onset Date Comments Letter Requests 03/10/2024 Encounter Details Date Type Department Care Team (Late st Contact Info) Description 03/10/2024 Telephone Family Medicine [address] [place] [phone] Bassem Winters MD [address] [place] [address] [place] [phone] Letter Requests Allergies No known active allergiesdocumented as of this encounter (statuses as of 03/10/2024) Medications Medication Sig Dispensed Refills Start Date End Date Status CENTRUM SILVER PO TABS One tablet daily Active Spironolactone 25 MG Oral Tablet (Aldactone)Indicatio ns:Venous insufficiency of both lower extremities TAKE 1 TABLET BY MOUTH EVERY DAY IN THE MORNING 90 Tablet 09/22/2023 Active Furosemide 40 MG Oral Tablet (Lasix)Indications:V enous insufficiency of both lower extremities TAKE 1-2 TABLETS BY MOUTH DAILY 180 Tablet 09/22/2023 Active Thiamine HCl 100 MG Oral Tablet (vitamin B-1) TAKE 1 TABLET BY MOUTH EVERY DAY IN THE MORNING 90 Tablet 09/22/2023 Active Folic Acid 1 MG Oral Tablet TAKE 1 TABLET BY MOUTH EVERY DAY IN THE MORNING 90 Tablet 09/22/2023 Active Azelastine HCl 0.1 % Nasal Solution (Astelin)Indications :Nasal congestion Administer 1 Crowley into nostril in the morning and 1 Crowley before bedtime. 30 mL 2 10/21/2023 Active traMADol HCl 50 MG Oral Tablet (Ultram)Indications: Compression fracture of L2 vertebra with routine healing, subsequent encounter Take 2 Tablets by mouth every 6 hours as needed for Pain, Severe. 60 Tablet 01/25/2024 Active Calcium Carbonate 1500 (600 Ca) MG Oral Tablet Take 1 Tablet by mouth 2 times a day with morning and evening meals. 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 28 Tablet 02/12/2024 Active documented as of this encounter (statuses as of 03/10/2024) Active Problems Problem Noted Date Diagnosed Date NSVT (nonsustained ventricular tachycardia) 12/02 Right bundle branch block 12/29/2023 Liver mass 10/21/2023 Alcoholic cirrhosis of liver without ascites Alcohol use 10/21/[address] 09/16/2022 Venous insufficiency of both lower extremities 0 03/12/2018 Gouty arthropathy 05/17/2009 Overview: ICD-9 Code Update ADVANCE DIRECTIVE INFORMATION 05/23/2005 Overview: No, Advance Directive brochure given to patient at prior appointment. documented as of this encounter (statuses as of 03/10/2024) Resolved Problems Problem Noted Date Diagnosed Date Resolved Date Gouty arthropathy 05/30/2004 05/17/2009 Overview: ICD-9 Code Update ICD-10 update of inactive term documented as of this encounter (statuses as of 03/10/2024) Immunizations Name Administration Dates Next Due COVID-19 mRNA, LNP-s, No Pre serve, 2-Dose Series ([employer]) 10/09/2020,09/18/2020 Covid-19, Mrna, Lnp-s, Pf, B ivalent, 30 Mcg, IM, 12 yrs and above (Pfizer) 10/23/2022 Pneumococcal Conjugate Vacc, 13 Valent (Prevnar) 03/24/2019 Pneumococcal Polysaccharide PPV23 (Pneumovax) 05/09/2010 Seasonal Influenza, PF, 6 M & above, IM , (FluLaval or Fluzone) 06/03/2018,06/18/2017 Seasonal Influenza, Split, I IV3, With Preserve, Inj 04/14/2014,05/21/2011,05/09/2010 TDAP (age 10 and older)(Boostrix) 09/15/2019,07/2014 Zoster Vaccine Recombinant (Shingrix) 01/31/2020 ,08/24/2019 documented as of this encounter Social History Tobacco Use Types Packs/Day Years Used Date Smoking Tobacco: Former Cigarettes Q uit: 08/03/1984 Smokeless Tobacco: Former Comments:quit 20 years ago Alcohol Use Standard Drinks/Week Comments Yes 0 (1 standard drink = 0.6 oz pur e alcohol) beer PHQ-2 Answer Date Recorded PHQ-2 Score 0 03/24/2019 Hunger Vital Sign Answer Date Recorded Worried About Running Out of Food in the Last Ye ar Never true 03/24/2019 Ran Out of Food in the Last Year Never true 03/24/2019 Sex and Gender Information Value Date Recorded Sex Assigned at Not on file Gender Identity Not on file Sexual Orientation Not on file Job Start Date Occupation Industry Not on file Not on file Not on file documented as of this encounter Miscellaneous Notes * Telephone Encounter - Bassem Winters MD - 03/10/2024 9:45 PM EDT Letter singed * Telephone Encounter - Cheri Walls OSA - 03/10/2024 1:29 PM EDT Pt's spouse is calling if the Dr can write a letter stating that the pt would benefit a home healthaide. Pt's spouse is being denied due to pt's spouse being there but it's to much for pt's spouse to handle. The letter needs to have support from the Dr to get aide. Pt has fracture back and fracture knee cap. Please call if letter can be done and when it's completed. documented in this encounter Plan of Treatment Upcoming Encounters Date Type Department Care Team (Late st Contact Info) Description 03/18/2024 10:00 AM EDT Office Visit Hepatology, [facility] [address] [facility] [place] [address] Gertrudis Luna MD [address] [place] [address] [place] [address] 03/25/2024 10:00 AM EDT Cardiac [address] [address] [facility] [place] [address] 05/02/2024 10:00 AM EDT Office Visit Cardiology, [facility] [address] [facility] [place] [address] Dionte Carranza DO 132 [place] [address] 05/05/2024 9:00 AM EDT Office Visit Family Medicine [address] [place] [phone] Bassem Winters MD [address] [place] [address] [place] [address] 10/18/2024 10:00 AM EDT Office Visit Cardiology, [address] [place] [address] Malena Waters CRNP [address] [place] [address] [place] [address] Health Maintenance Due Date Last Done Comments Hepatitis B Vaccine (1 of 3 - Risk 3-dose series) 2002 Adult Wellness Visit 2008 COVID-19 Vaccine ( season) 2023 05/11/2023, 10/23/2022, 10/09/2020, Additional history exists Influenza Vaccine (FLU shot) (#1) 2024 06/01/2023, 06/03/2018, 06/18/2017, Additional history exists Depression Screening 10/20/2024 10/21/2023 DTaP,Tdap,and Td Vaccines (3 - Td or Tdap) 09/15/2029 09/15/2019, 04/14/2014 Pneumococcal Vaccine: 65+ Years Completed 03/24/2019, 05/09/2010 Zoster Vaccines Completed 01/31/2020, 08/24/2019 HPV (Gardasil) Vaccine Aged Out No lo nger eligible based on patient's age to complete this topic MENINGOCOCCAL (MENACTRA/MENVEO) Aged Out No longer eligible based on patient's age to complete this topic documented as of this encounter Medical Devices Implanted Type Area Lead Setter Device Identifier Shelf Expiration Date Model / Serial / Lot Lens Intraoc 17.0 - [id number] - [id number] Implanted:Qty: 1 on 03/03/2017 by Dexter Nazario MD at OR [facility] Left: Eye [employer] 08/02/2021 [id number] / [id number] / [id number] Lens Intraoc 16.0 - [id number] - [id number] Implanted:Qty: 1 on 03/17/2017 by Dexter Nazario MD at OR [facility] Right: Eye [employer]OM[employer] 08/02/2021 [id number] / [id number] / [id number] documented as of this encounter Advance Directives * Full Code (Latest Code Status on File) Date Activated Date Inactivated Comments 03/17/2017 6:45 AM 03/17/2017 1:10 PM This order r eflects the patients wishes and were consensually agreed upon. * Full Code Date Activated Date Inactivated Comments 03/03/2017 6:58 AM 03/03/2017 1:23 PM This order ref lects the patients wishes and were consensually agreed upon. Care Teams Architecture Manager Relationship Specialty Start Date End Date Bassem Winters MD [address] [place] [address] [place] [address] PCP - General Family Medicine 10/21/23 documented as of this encounter
--- OUTSIDE RECORDS SUMMARY | 2024-03-13 20:56 | External Medical Summary | Summary of Care ---
Author Name Unknown Organization [facility] Address [address] [facility] [place] [address] Phone [phone] Care Team Providers Care Airframe Technical Officer Name Role Phone Bassem Winters MD Primary Care Provide r Reason for Visit * Reason Onset Date Comments Blood Pressure Check 03/10/2024 blood pr essure checks Encounter Details Date Type Department Care Team (Late st Contact Info) Description 03/10/2024 Telephone Family Medicine [address] [place] [phone] Bassem Winters MD [address] [place] [address] [place] [id number] Blood Pressure Check ( blood pressure ch... Allergies No known active allergiesdocumented as of [...] Nasal Solution (Astelin)Indications :Nasal congestion Administer 1 Hayes into nostril in the morning and 1 Hayes before bedtime. 30 mL 2 10/21/2023 Active [...] mRNA, LNP-s, No Pre serve, 2-Dose Series ([facility]) 10/09/2020,09/18/2020 Covid-19, Mrna, Lnp-s, Pf, B ivalent, [...] Encounter - Bassem Winters MD - 03/10/2024 9:37 PM EDT Unsure why these readings were sent to me - is it possible call them and ask the pt where they concered about anything specific? 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 [address] [facility] [place] [address] Gertrudis Luna MD [address] [place] [address] 03/25/2024 10:00 AM EDT Cardiac Studies Cardiology, [facility] 132 [facility] [place] [address] Ingris Virk [facility] 132 [facility] [place] [address] 05/02/2024 10:00 AM EDT Office Visit Cardiology, [facility] [address] [facility] [place] [address] Dionte aCrranza, 132 [facility] [place] [address] 05/05/2024 9:00 AM EDT Office Visit Family Medicine [address] [place] [phone] Bassem Winters MD [address] [place] [address] [place] [address] 10/18/2024 10:00 AM EDT Office Visit Cardiology, [facility], [address] [place] [address] Malena Waters CRNP [address] [place] [phone] Health Maintenance Due Date Last Done Comments [...] this encounter Medical Devices Implanted Type Area Catalogue Clerk Device Identifier Shelf Expiration Date Model / Serial / Lot Lens Intraoc 17.0 - [id number] - [id number] Implanted:Qty: 1 on 03/03/2017 by Dexter Nazario MD at OR [facility] Left: Eye [employer] 08/02/2021 [id number] / [id number] / [id number] Lens Intraoc 16.0 - [id number] - [id number] Implanted:Qty: 1 on 03/17/2017 by Dexter Nazario MD at OR [facility] Right: Eye [employer]OM[employer] 08/02/2021 [id number] / [id number] / [id number] documented as of this encounter Advance Directives [...] and were consensually agreed upon. Care Teams Airframe Technical Officer Relationship Specialty Start Date End Date Bassem Winters MD [address] [place] [address] [place] [address] PCP - General Family Medicine 10/21/23 documented as of this encounter
--- OUTSIDE RECORDS SUMMARY | 2024-03-13 20:57 | External Medical Summary | Summary of Care ---
Author Name Unknown Organization [facility] Address [address] [facility] [place] [address] Phone [phone] Care Team Providers Care Deputy Manager Name Role Phone Bassem Winters MD Primary Care Provide r Reason for Visit * Reason Comments Consultation * Evaluate & Treat - Unlimited Visits (Within 30 days (routine)) - Pending Review Specialty Diagnoses / Procedures Referred By Contact Referred To Contact Cardiac Electrophysiology / Cardiology Diagnoses Ventricular tachycardia (HCC) Bassem Winters MD [address] [place] [address] [place] [address] Referral ID Status Reason Start Date Expiration Date Visits Requested Visits Authorized [id number] Pending Review Specialty Services Required 12/14/[phone] Encounter Details Date Type Department Care Team (Late st Contact Info) Description 03/04/2024 8:45 AM EDT Office Visit Cardiology, [facility] [address] [place] [address], [place] [id number] Diane Saleh, [address] [facility] [place] [address] Symptomatic sinus bradycardia*; RBBB (right bundle branch block); LAFB (left anterior fascicular block); NSVT (nonsustained ventricular tachycardia) (HCC); 1st degree AV block Allergies No known active allergiesdocumented as of this encounter (statuses as of 03/04/2024) Medications Medication Sig Dispensed Refills Start Date End Date Status CENTRUM SILVER PO TABS One tablet daily Active Spironolactone 25 MG Oral Tablet (Aldactone)Indicatio ns:Venous insufficiency of both lower extremities TAKE 1 TABLET BY MOUTH EVERY DAY IN THE MORNING 90 Tablet 1 09/22/2023 Active Furosemide 40 MG Oral Tablet (Lasix)Indications:V enous insufficiency of both lower extremities TAKE 1-2 TABLETS BY MOUTH DAILY 180 Tablet 1 09/22/2023 Active Thiamine HCl 100 MG Oral Tablet (vitamin B-1) TAKE 1 TABLET BY MOUTH EVERY DAY IN THE MORNING 90 Tablet 1 09/22/2023 Active Folic Acid 1 MG Oral Tablet TAKE 1 TABLET BY MOUTH EVERY DAY IN THE MORNING 90 Tablet 1 09/22/2023 Active Azelastine HCl 0.1 % Nasal Solution (Astelin)Indications :Nasal congestion Administer 1 Deep Gap into nostril in the morning and 1 Deep Gap before bedtime. 30 mL 2 10/21/2023 Active [...] as of this encounter (statuses as of 03/04/2024) Active Problems Problem Noted Date Diagnosed Date [...] as of this encounter (statuses as of 03/04/2024) Resolved Problems Problem Noted Date Diagnosed Date Resolved Date Gouty arthropathy 05/30/2004 05/17/2009 Overview: ICD-9 Code Update ICD-10 update of inactive term documented as of this encounter (statuses as of 03/04/2024) Immunizations Name Administration Dates Next Due COVID-19 mRNA, LNP-s, No Pre serve, 2-Dose Series (Pfizer) 10/09/2020,09/18/2020 Covid-19, Mrna, Lnp-s, Pf, B ivalent, [...] on file documented as of this encounter Last Filed Vital Signs Vital Sign Reading Time Taken Comments Blood Pressure 106/58 03/04/2024 8:49 AM EDT Pulse 88 03/04/2024 8:49 AM EDT Temperature - - Respiratory Rate 18 03/04/2024 8:49 AM EDT Oxygen Saturation - - Inhaled Oxygen Concentration - - Weight - - Height - - Body Mass Index - - documented in this encounter Progress Notes * Diane Saleh, DO - 03/04/2024 8:59 AM EDT Subjective Alphonse Hi is a 83 year old male. Chief Complaint Patient presents with Consultation Pt referred to EP due to abnormal zio patch Referring Provider: Dr. Winters General Test Hole Driller: Dr. 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 The most recent was in January when in the shower-his had to call EMS and they took sometime in getting him out of the shower and then had some difficulty getting his vitals and they recommended hego to the ER but pt refused. PMH: Patient Active Problem List Diagnosis ADVANCE DIRECTIVE INFORMATION Gouty arthropathy Venous insufficiency of both lower extremities Abnormal liver CT Liver mass Alcoholic cirrhosis of liver without ascites (HCC) Alcohol use NSVT (nonsustained ventricular tachycardia) (HCC) Right bundle branch block Current Outpatient Medications Medication Sig Dispense Refill CENTRUM SILVER PO TABS One tablet daily Spironolactone 25 MG Oral Tablet (Aldactone) TAKE 1 TABLET BY MOUTH EVERY DAY IN THE MORNING 90 Tablet 1 Furosemide 40 MG Oral Tablet (Lasix) TAKE 1-2 TABLETS BY MOUTH DAILY 180 Tablet 1 Thiamine HCl 100 MG Oral Tablet (vitamin B-1) TAKE 1 TABLET BY MOUTH EVERY DAY IN THE MORNING 90 Tablet 1 Folic Acid 1 MG Oral Tablet TAKE 1 TABLET BY MOUTH EVERY DAY IN THE MORNING 90 Tablet 1 traMADol HCl 50 MG Oral Tablet (Ultram) Take 2 Tablets by mouth every 6 hours as needed for Pain, Severe. 60 Tablet 0 Calcium Carbonate 1500 (600 Ca) MG Oral Tablet Take 1 Tablet by mouth 2 times a day with morning and evening meals. traMADol HCl 50 MG Oral Tablet (Ultram) Take 1 Tablet by mouth 2 times a day as needed for Pain, Severe. 28 Tablet 0 Azelastine HCl 0.1 % Nasal Solution (Astelin) Administer 1 Deep Gap into nostril in the morning and 1 Deep Gap before bedtime. 30 mL 2 Triamcinolone Acetonide 0.5 % External Cream (Aristocort) APPLY TOPICALLY TO AFFECTED AREA(S) 2 TIMES A DAY 60 g 5 No current facility-administered medications for this visit. 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 NSVT (nonsustained ventricular tachycardia) (HCC) 12/29/2023 Olecranon bursitis 1999 right elbow, saw Dr Mart Retinal tear 2009 Right bundle branch block 12/29/2023 Thrombocytopenia (HCC) 09/16/2022 Venous insufficiency of both lower extremities Past Surgical History: Procedure Laterality Date CT ABD/PELVIS W IV AND W ORAL CONTRAST 09/16/2022 cirrhosis with numerous hepatic masses, likely metastatic LASER TRABECULOPLASTY 09/14/2009 OD; Dr. Lord NASAL/SINUS ENDOSCOPY, SURGICAL 11/09/2013 nasal cautery for epistaxis, polypectomy and septoplasty, Dr Mascorro REMOVE CATARACT, INSERT LENS PROSTH Left 03/03/2017 left EXTRACAPSULAR CATARACT REMOVAL WITH INTRAOCULAR LENS performed by Dexter Nazario MD at OR [facility] REMOVE CATARACT, INSERT LENS PROSTH Right 03/17/2017 right EXTRACAPSULAR CATARACT REMOVAL WITH INTRAOCULAR LENS performed by Dexter Nazario MD at OR [facility] VAS DUPLEX VENOUS LE UNILAT Right 06/18/2017 no DVT Review of patient's allergies indicates: No Known Allergies Family History Problem Relation Name Age of Onset Glaucoma Sister Patient thinks that sister has glaucoma but not sure Heart Disorder Brother CO Cancer Brother Other (Other [Other]) None Denies FH of DM, HTN, Stroke Family Status Relation Status Mo Fa Sis (Not Specified) Bro (Not Specified) NONE (Not Specified) Sis (Not Specified) Bro (Not Specified) Bro (Not Specified) NONE (Not Specified) Social History Socioeconomic History Marital status: Spouse name: Not on file Number of children: Not on file Years of education: Not on file Highest education level: Not on file Occupational History Not on file Tobacco Use Smoking status: Former Current packs/day: 0.00 Types: Cigarettes Quit date: 08/03/1984 Years since quittin.6 Smokeless tobacco: Former Tobacco comments: quit 20 years ago Substance and Sexual Activity Alcohol use: Yes Comment: beer Drug use: No Sexual activity: Not on file Other Topics Concern Not on file Social History Narrative Not on file Social Determinants of Health Financial Resource Strain: Not on file Food Insecurity: No Food Insecurity (03/24/2019) Hunger Vital Sign Worried About Running Out of Food in the Last Year: Never true Ran Out of Food in the Last Year: Never true Transportation Needs: Not on file Social Connections: Unknown (03/04/2024) Social Connections How often do you feel lonely or isolated from those around you? (Adult - for ages 18 years and over): Not on file Housing Stability: Not on file Review of Systems Constitutional: Positive for fatigue. Negative for activity change, chills, fever and unexpected weight change. HENT: Negative for postnasal drip, rhinorrhea and sinus pressure. Eyes: Negative for visual disturbance. Respiratory: Positive for shortness of breath. Cardiovascular: Negative for chest pain, palpitations and leg swelling. Gastrointestinal: Positive for constipation. Negative for blood in stool, diarrhea, nausea and vomiting. Genitourinary: Negative for dysuria and hematuria. Musculoskeletal: Positive for gait problem. Skin: Negative for rash. Neurological: Positive for weakness. Negative for dizziness, syncope and light-headedness. Objective BP 106/58 | Pulse 88 | Resp 18 Physical Exam Vitals and nursing note reviewed. Constitutional: General: He is awake. Appearance: Normal appearance. He is well-developed. HENT: Head: Normocephalic and atraumatic. Eyes: General: No scleral icterus. Extraocular Movements: Extraocular movements intact. Neck: Vascular: Normal carotid pulses. No carotid bruit or JVD. Cardiovascular: Rate and Rhythm: Normal rate and regular rhythm. Pulses: Carotid pulses are 2+ on the right side and 2+ on the left side. Radial pulses are 2+ on the right side and 2+ on the left side. Posterior tibial pulses are 2+ on the right side and 2+ on the left side. Heart sounds: S1 normal and S2 normal. Murmur heard. Pulmonary: Effort: Pulmonary effort is normal. Breath sounds: Normal breath sounds. No decreased breath sounds, wheezing, rhonchi or rales. Abdominal: Palpations: Abdomen is soft. Musculoskeletal: Cervical back: Neck supple. Right lower leg: No edema. Left lower leg: No edema. Skin: General: Skin is warm and dry. Neurological: General: No focal deficit present. Mental Status: He is alert and oriented to person, place, and time. Psychiatric: Attention and Perception: Attention normal. Mood and Affect: Mood normal. Speech: Speech normal. Behavior: Behavior normal. Behavior is cooperative. Thought Content: Thought content normal. Cognition and Memory: Cognition normal. Judgment: Judgment normal. RESULTS: Nuclear Stress Test: 02/24/2024: The pharmacologic myocardial perfusion imaging study is normal without evidence of scar or inducible ischemia. Gated SPECT imaging reveals normal myocardial thickening and wall motion. The left ventricular ejection fraction was calculated to be 56% ECGS: 02/10/2024: SR 79bpm 1st degree AV block APC RBBB LAFB LVH 12/29/2023: SB 45bpm 1st AV block APC in bigeminy RBBB LAFB Zio Patch: 11/18/2023: CONCLUSIONS: Duration 13 days, 2 hours Patient had a min HR of 37 bpm, max HR of 174 bpm, and avg HR of 57 bpm. Predominant underlying rhythm was Sinus Rhythm. First Degree AV Block was present. Bundle Branch Block/IVCD was present. 2 Ventricular Tachycardia runs occurred, the run with the fastest interval lasting 15 beats with a max rate of 174 bpm (avg 140 bpm); the run with the fastest interval was also the longest. Isolated SVEs were occasional (2.4%, [id number]), and no SVE Couplets or SVE Triplets were present. Isolated VEs were frequent (7.9%, 38[address]), VE Couplets were rare (<1.0%, 1), and VE Triplets were rare (<1.0%, 454). Inverted QRS complexes possibly due to inverted placement of device. MD notification criteria for Ventricular Tachycardia met - report posted prior to notification per account request (TT). Rhythm interpretation limited by baseline artifact. Symptoms correlating with sensed ventricular and supraventricular ectopy. Echocardiogram: 11/10/2023: The examination is adequate to evaluate the referral indication. Marked bradycardia in the 40s was present during the echocardiogram and the rhythm is indeterminate. Consider obtaining an EKG and long-term potline monitor. The LV wall thickness is mildly increased (concentric). The left ventricular wall motion is normal. The qualitative LV ejection fraction is 55-59% (normal). The aortic valve has three leaflets. The aortic valve is mildly calcified. Aortic stenosis is absent. Mild tricuspid regurgitation is present. The estimated pulmonary artery systolic pressure is 57-62 mm Hg (moder to severely elevated ). Lab Work Reviewed: Component Latest Ref Rng 09/15/2022 03/30/2023 10/21/2023 BUN 6 - 20 mg/dL 15 15 Creatinine 0.6 - 1.2 mg/dL 0.8 0.8 Estimated Glomerular Filtration Rate >=60 mL/min 89 89 Sodium 135 - 146 mmol/L 139 139 Potassium 3.5 - 5.1 mmol/L 4.6 4.5 Chloride 98 - 107 mmol/L 104 105 CO2 22 - 32 mmol/L 22 24 Anion Gap 7 - 15 mmol/L 13 10 Glucose 70 - 120 mg/dL 113 124 (H) Albumin 3.8 - 5.0 g/dL 3.6 (L) 3.6 (L) AST 10 - 50 U/L 50 60 (H) Alkaline Phosphatase 35 - 130 U/L 122 107 Bilirubin, Total <=1.2 mg/dL 3.3 (H) 2.8 (H) Calcium 8.4 - 10.2 mg/dL 9.1 9.3 Protein 6.0 - 8.3 g/dL 6.7 6.8 ALT 10 - 50 U/L 30 36 WBC 4.00 - 10.80 K/uL 4.50 Neutrophils % 40.0 - 75.0 % 68.1 Lymphocytes % 18.0 - 42.0 % 16.7 (L) Monocytes % 1.0 - 11.0 % 11.6 (H) Eosinophils % 0.0 - 6.0 % 2.7 Basophils % 0.0 - 2.0 % 0.7 Immature Granulocytes % 0.0 - 2.0 % 0.2 Absolute Neutrophils 1.80 - 7.70 K/uL 3.07 Absolute Lymphocytes 1.00 - 4.80 K/ul 0.75 (L) Absolute Monocytes 0.00 - 1.10 K/uL 0.52 Absolute Eosinophils 0.00 - 0.70 K/uL 0.12 Absolute Basophils 0.00 - 0.20 K/uL 0.03 Absolute Immature Granulocytes 0.00 - 0.20 K/uL 0.01 WBC 4.00 - 10.80 K/uL 4.04 4.50 RBC 4.50 - 5.25 M/uL 4.87 4.92 HGB 14.0 - 16.8 g/dL 16.1 16.7 HCT 40.0 - 48.4 % 50.3 (H) 49.5 (H) MCV 82.0 - 99.5 fL 103.3 100.6 MCH 27.0 - 34.0 pg 33.1 33.9 MCHC 32.0 - 36.0 g/dL 32.0 33.7 RDW 11.5 - 15.5 % 15.4 15.2 PLT 140 - 400 K/uL 67 (L) 71 (L) MPV 6.6 - 11.1 fL 10.9 11.4 nRBCs <=0 /100 WBCs 0 0 Triglycerides <=174 mg/dL 71 Cholesterol <200 mg/dL 198 HDL Cholesterol >39 mg/dL 78 Non-HDL Cholesterol <=159 mg/dL 120 LDL Cholesterol <=129 mg/dL 106 Hemoglobin A1C 4.0 - 5.6 % 5.0 Estimated Average Glucose <126 mg/dL 97 BNP, NT-Pro <300 pg/mL 260 ASSESSMENT: Irreversible symptomatic sinus bradycardia RBBB LAFB 1st degree AV block NSVT on zio patch 11/2023 during sleep APC/PVC 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/2023 Frequent falls Venous insufficiency b/l Alcoholic cirrhosis of liver without ascites Gout PLAN: -I reviewed the cardiac conduction system with the patient and his and how it relates to his condition of Irreversible symptomatic sinus bradycardia, RBBB, LAFB, 1st degree AV block, NSVT on ziopatch 11/2023 during sleep -Recommend dual chamber pacemaker -Discussed procedure and risks which include but are not limited to arrhythmias, strokes, heart attacks, high risk injury to with blood vessels, lungs where she would need a chest tube or chamber of the heart where he would need a pericardiocentesis, , bleeding and infection with the patient and the family; they expressed an understanding and wish to proceed. -Procedure 03/16 -After the pacemaker would start toprol -hold lasix and sprinolactone morning of procedure -Lab work today -Device and wound check 1 week after the procedure -Keep general cardiology f/u in Apr -EP f/u in 7 months to separate out from general cardiology by 6 months Diane Saleh DO documented in this encounter Nursing Notes * Elise Arias LPN - 03/04/2024 11:40 AM EDT ELECTROPHYSIOLOGY PACEMAKER/ICD INSTRUCTIONS Please arrive at [facility] via the Main Entrance and check in at Outpatient Registration Desk at 0800 (Pt time) on 03/16/2024, Diane Saleh DO will perform your Dual Chamber PPM. Nothing to eat or drink after midnight. No caffeine 24 hours prior to procedure, No tobacco products after midnight DO NOT take the following medications on the morning of your procedure: Furosemide, spironolactone No over the counter vitamins, Fish oil and/or Vit E the morning of your procedure OK to take the following medications with a sip of water at their usual times: N/a - do not take any medication If you take INSULIN: n/a If you take COUMADIN/BLOOD THINNERS: n/a DO NOT wear any jewelry the day of the procedure. Bring your medications with you in their original containers. It may be necessary for you to take them after your procedure. You will not be allowed to drive, please bring a tow driver 18 or older to take you home. You will not be permitted to leave via taxi, public transportation/bus or Uber Prep before procedure The night before the procedure use bottle of soap, use the remaining bottle the morning of procedure. Pour some soap on a clean damp washcloth and wash your chest, each arm and arm pits. Add more soap to washcloth keeping it wet. Wash your back, legs, groin (do not use on genitals) wash buttocks last. Leave soap on the skin for 2 minutes before rinsing off. The morning of the procedure use the remaining bottle of soap and repeat the steps above. Pre Op Testing Proceed to lab for pre-procedure testing Follow Up Wound Check You will be scheduled for a wound check 1 week after your procedure in our Device Clinic in [facility]. 03/25/24 Important Instructions Your surgical site is NOT PERMITTED to get wet in any way while site is covered by bandage. You areunable to shower/swim/hot tub until given permission by clinic nurse in the office. Elbow is not allowed above shoulder level for one month. If you have any questions regarding the procedure before you come or questions in the days after the procedure, please do not hesitate to call the office at [phone] Preventing skin infections after surgery handout given * Elise Arias LPN - 03/04/2024 8:47 AM EDT Examination Room: 13 Name: Alphonse Hi Date of : 1940 Reason for Visit: New pt Problems/Concerns: Denies s/s vtach - found on Zio Interim Hosp(s): January EMS ER trip s/p fall, pain Chest Pain/SOB: denies MyChart Discussed: decline Patient was instructed to not get up on the exam table until directed and assisted by their provider; patient is to remain seated in the chair/ wheelchair/ exam table for fall prevention and safety reasons. Patient is aware staff will assist stepping down off exam table with personnel. documented in this encounter Miscellaneous Notes * Addendum Note - Elise Arias LPN - 03/04/2024 11:17 AM EDTAddended by: ELISE ARIAS on: 03/04/2024 11:17 AM Modules accepted: Orders documented in this encounter Plan of Treatment Upcoming Encounters Date Type Department Care Team (Late st Contact Info) Description 03/18/2024 10:00 AM EDT Office Visit Hepatology, [facility] [address] [facility] [place] [address] Gertrudis Luna MD [address] [place] [address] [place] [address] 03/25/2024 10:00 AM EDT Cardiac Studies Cardiology, [facility] [address] [facility] [place] [address] [facility] 132 [facility] [place] [address] 05/02/2024 10:00 AM EDT Office Visit Cardiology, [facility] [address] [facility] [place] [address] Dionte Carranza DO 132 [facility] [place] [address] 05/05/2024 9:00 AM EDT Office Visit Family Medicine [address] [id number] Bassem Winters MD [address] [place] [address] [place] [address] 10/18/2024 10:00 AM EDT Office Visit Cardiology, [address] [place] [address] Malena Waters, MARTY [address] [place] [address] Scheduled Orders Name Type Priority Associated Diagnoses Orde r Schedule INSERT/REPLACE PACEMAKER,ATRIAL/VE NTRICULAR Procedures Routine Symptomatic sinus bradycardia RBBB (right bundle branch block) LAFB (left anterior fascicular block) NSVT (nonsustained ventricular tachycardia) (HCC) 1st degree AV block Ordered: 03/04/2024 Health Maintenance Due Date Last Done Comments Hepatitis B Vaccine (1 of 3 - Risk 3-dose series) 2002 COVID-19 Vaccine ( season) 2023 05/11/2023, 10/23/2022, [...] this encounter Medical Devices Implanted Type Area Explosive Operator Bomb Device Identifier Shelf Expiration Date Model / Serial / Lot Lens Intraoc 17.0 - [id number] - [id number] Implanted:Qty: 1 on 03/03/2017 by Dexter Nazario MD at OR [facility] Left: Eye [employer] 08/02/2021 [id number] / [id number] / [id number] Lens Intraoc 16.0 - [id number] - [id number] Implanted:Qty: 1 on 03/17/2017 by Dexter Nazario MD at OR [facility] Right: Eye [employer] 08/02/2021 [id number] / [id number] / [id number] documented as of this encounter Results * (ABNORMAL) BASIC METABOLIC PANEL (03/04/2024 10:06 AM EDT) BUN 17 6 - 20 mg/dL 03/04/2024 11:12 AM EDT [facility] Creatinine 0.8 0.6 - 1.2 mg/dL 03/04/2024 11:12 AM EDT [facility] Estimated Glomerular Filtration Rate 88 >=60 mL/min 03/04/2024 11:12 AM EDT [facility] Comment:eGFR is calculated b ased on the CKD-EPI 2020 equation. Sodium 135 135 - 146 mmol/L 03/04/2024 11:12 AM EDT [facility] Potassium 3.6 3.5 - 5.1 mmol/L 03/04/2024 11:12 AM EDT [facility] Chloride 97(L) 98 - 107 mmol/L 03/04/2024 11:12 AM EDT [facility] CO2 25 22 - 32 mmol/L 03/04/2024 11:12 AM EDT [facility] Anion Gap 13 7 - 15 mmol/L 03/04/2024 11:12 AM EDT [facility] Glucose 119 70 - 120 mg/dL 03/04/2024 11:12 AM EDT [facility] Calcium 9.3 8.4 - 10.2 mg/dL 03/04/2024 11:12 AM EDT [facility] Blood Venous blood specimen / Unknown Venipuncture / Unknown 03/04/2024 10:06 AM EDT 03/04/2024 10:06 AM EDT Diane Saleh DO LAB BLOOD ORDER [facility]ATO [facility] [address] [place] [address] * (ABNORMAL) CBC (03/04/2024 10:06 AM EDT) WBC 8.10 4.00 - 10.80 K/uL 03/04/2024 10:46 AM EDT [facility] RBC 4.96 4.50 - 5.25 M/uL 03/04/2024 10:46 AM EDT [facility] HGB 17.0(H) 14.0 - 16.8 g/dL 03/04/2024 10:46 AM EDT [facility] HCT 49.1(H) 40.0 - 48.4 % 03/04/2024 10:46 AM EDT [facility] MCV 99.0 82.0 - 99.5 fL 03/04/2024 10:46 AM EDT [facility] MCH 34.3 27.0 - 34.0 pg 03/04/2024 10:46 AM EDT [facility] MCHC 34.6 32.0 - 36.0 g/dL 03/04/2024 10:46 AM EDT [facility] RDW 15.2 11.5 - 15.5 % 03/04/2024 10:46 AM EDT [facility] PLT 86(L) 140 - 400 K/uL 03/04/2024 10:46 AM EDT [facility] MPV 10.5 6.6 - 11.1 fL 03/04/2024 10:46 AM EDT [facility] Blood Venous blood specimen / Unknown Venipuncture / Unknown 03/04/2024 10:06 AM EDT 03/04/2024 10:06 AM EDT Diane Saleh DO LAB BLOOD ORDER [facility]O [facility] [place] [address] [facility] [place] [address] documented in this encounter Visit Diagnoses Diagnosis Symptomatic sinus bradycardia- Primary Other specified cardiac dysrhythmias RBBB (right bundle branch block) Right bundle branch block 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 * Full Code Date Activated Date Inactivated Comments 03/03/2017 6:58 AM 03/03/2017 1:23 PM This order re flects the patients wishes and were consensually agreed upon. Care Teams Deputy Manager Relationship Specialty Start Date End Date Bassem Winters MD [address] [place] [address] [place] [address] PCP - General Family Medicine 10/21/23 documented as of this encounter"
--- OUTSIDE RECORDS SUMMARY | 2024-03-13 20:57 | External Medical Summary | Summary of Care ---
Author Name Unknown Organization [facility] Address [address] [facility] [place] [address] Phone [phone] Care Team Providers Care Deck Scaler Name Role Phone Bassem Winters MD Primary Care Provide r Reason for Referral * Evaluate & Treat - Unlimited Visits (Within 30 days (routine)) - Authorized Specialty Diagnoses / Procedures Referred By Contac t Referred To Contact Pain Management / Pain Medicine Diagnoses Compression fracture of L2 vertebra with routine healing, subsequent encounter Bassem Winters MD [address] [place] [address] [place] [address] Referral ID Status Reason Start Date Expiration Date Visits Requested Visits Authorized [id number] Authorized Specialty Services Required 02/12/[phone] Question Answer Referral Priority Within 30 days (routine) Where should this appointment be scheduled? External Reason for referral? Non Interventional Pain Management What is the preferred location to have this test performed? Non [facility] Site Comments Patient Name: Alphonse Hi Date of : 1940 Department Phone Number: MRI or CT (if unable to have a MRI) is recommended if any of the following apply: 1. Patient has neck or back pain with radiation to extremities. A previous MRI will be accepted if symptoms unchanged since prior MRI. 2. Spinal surgery since last MRI. If yes, order a MRI with and without contrast. 3. Hx or ongoing cancer treatment. Patient will need spine x-ray (Ap/Lat) for axial neck or back pain if not done previously. Fax No. [facility] [phone] or contact front end java developer [phone] Fax No. [facility] [phone] or contact front end java developer [phone] Fax No. [facility] [phone] or contact front end java developer [phone] Reason for Visit * Reason Onset Date Comments Home Health 02/11/2024 Encounter Details Date Type Department Care Team (Late st Contact Info) Description 02/11/2024 Telephone Family Medicine [address] [place] [phone] Bassem Winters MD [address] [place] [address] [place] [address] Home Health Allergies No known active allergiesdocumented as of this encounter (statuses as of 02/12/2024) Medications Medication Sig Dispensed Refills Start Date End Date Status CENTRUM SILVER PO TABS One tablet daily Active Spironolactone 25 MG Oral Tablet (Aldactone)Indicat ions:Venous insufficiency of both lower extremities TAKE 1 TABLET BY MOUTH EVERY DAY IN THE MORNING 90 Tablet 1 09/22/2023 Active Furosemide 40 MG Oral Tablet (Lasix)Indications :Venous insufficiency of both lower extremities TAKE 1-2 [...] Active Azelastine HCl 0.1 % Nasal Solution (Astelin)Indicatio ns:Nasal congestion Administer 1 [place] into nostril in the morning and 1 [place] before bedtime. 30 mL 2 10/21/2023 Active traMADol HCl 50 MG Oral Tablet (Ultram)Indication s:Compression fracture of L2 vertebra with routine healing, subsequent encounter Take 2 Tablets by mouth every 6 hours as needed for Pain, Severe. 60 Tablet 01/25/2024 Active Calcium Carbonate 1500 (600 Ca) MG Oral Tablet Take 1 Tablet by mouth 2 times a day with morning and evening meals. Active traMADol HCl 50 MG Oral Tablet (Ultram)Indication s:Compression fracture of L2 vertebra with routine healing, subsequent encounter Take 1 Tablet by mouth 2 times a day as needed for Pain, Severe. 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 05/17/2009 Overview: ICD-9 Code Update ICD-10 update of inactive term documented as of this encounter (statuses as of 02/12/2024) Immunizations Name Administration Dates Next Due COVID-19 mRNA, LNP-s, No Pre serve, 2-Dose Series (PokitDok) 10/09/2020,09/18/2020 Covid-19, Mrna, Lnp-s, Pf, B ivalent, 30 Mcg, IM, 12 yrs and above (PokitDok) 10/23/2022 Pneumococcal Conjugate Vacc, 13 Valent (Prevnar) [...] encounter Miscellaneous Notes * Telephone Encounter - Yesika Rees OSA - 02/12/2024 3:12 PM EDT Pt returned the call and understands the message from the * Telephone Encounter - Bassem Winters MD - 02/12/2024 10:49 AM EDT I will supply 2 weeks of tramadol - but 2 tablets max per day - I also referred the pt to pain clinic ---- pls advised the pt to call [facility] [phone] * Telephone Encounter - Aura Varela LPN - 02/11/2024 1:04 PM EDT Concerns Delano, Calling from: [facility] Report/Concerns of: Medication Related and Fall Vitals: T 97.2 P 71 BP 108/62 SP O2 95% RA Narrative: Liseth was with patient at the time of call for HH visit. Patient reported that he had a yall yesterday after coming back home from appt with cardiology, he has a small step in the front of his house and his knees gave out. He had a slow fall to the ground,no injuries and was able to get back up on his own. Patient has tramadol but only has a few days left, she stated that it sounded like PCP did not wantto refill the medication. If PCP does not want to refill tramadol what is recommended that he take for right low back pain (Compression Fracture) and bilateral knee pain. Please advise and call patient back with recommendations. * Telephone Encounter - Monse Hyman OSA - 02/11/2024 1:02 PM EDT Reason for patient's call: asked for nurse Caller was transferred to Aura at the nurse line. documented in this encounter Plan of Treatment Upcoming Encounters Date Type Department Care Team (Late st Contact Info) Description 02/24/2024 11:45 AM EDT [facility] [address] [place] [phone] Gw, Excess Time Radiology [address] [place] [address] 03/04/2024 8:45 AM EDT Office Visit Cardiology, [facility] [address] [place] [address] Diane Saleh, [address] [place] [address] 03/18/2024 10:00 AM EDT Office Visit Hepatology, [facility] [address] [place] [address] Gertrudis Luna MD [address] [place] [address] 05/02/2024 10:00 AM EDT Office Visit Cardiology, [facility] [address] [place] [address] Dionte Carranza, [address] [place] [address] 05/05/2024 9:00 AM EDT Office Visit Family Medicine [address] [place] [phone] Bassme Winters MD [address] [place] [address] [place] [address] Scheduled Referrals Name Type Priority Associated Diagnoses Orde r Schedule PAIN MEDICINE REFERRAL OP Referral Within 30 days (routine) Compression fracture of L2 vertebra with routine healing, subsequent encounter Ordered: 02/12/2024 Health Maintenance Due Date Last Done Comments Hepatitis B Vaccine (1 of 3 - Risk 3-dose series) 2002 COVID-19 Vaccine (2022- season) 2023 05/11/2023, 10/23/2022, 10/09/2020, Additional history [...] this encounter Medical Devices Implanted Type Area Pot Press Operator Device Identifier Shelf Expiration Date Model / Serial / Lot Lens Intraoc 17.0 - [id number] - [id number] Implanted:Qty: 1 on 03/03/2017 by Dexter Nazario MD at OR [facility] Left: Eye [employer]USCH [employer] LOMB 08/02/2021 [id number] / [id number] / [id number] Lens Intraoc 16.0 - [id number] - [id number] Implanted:Qty: 1 on 03/17/2017 by Dexter Nazario MD at OR [facility] Right: Eye BAUSCH [employer] LOMB 08/02/2021 [id number] / [id number] / [id number] documented as of this encounter Visit Diagnoses Diagnosis Compression fracture of L2 vertebra with routine healing, subsequent encounter- Primary documented in this encounter Advance Directives * [...] and were consensually agreed upon. Care Teams Deck Scaler Relationship Specialty Start Date End Date Bassem Winters MD [address] [place] [address] [place] [address] PCP - General Family Medicine 10/21/23 documented as of this encounter
--- OUTSIDE RECORDS SUMMARY | 2024-03-13 20:57 | External Medical Summary | Summary of Care ---
Author Name Unknown Organization [facility] Address [address] [place] [address] Phone [phone] Care Team Providers Care Architectural Wood Model Maker Name Role Phone Bassem Winters MD Primary Care Provide r Reason for Visit * Reason Comments Consultation * Evaluate & Treat - Unlimited Visits (Within 30 days (routine)) - Pending Review Specialty Diagnoses / Procedures Referred By Contact Referred To Contact Cardiac Electrophysiology / Cardiology Diagnoses Ventricular tachycardia (HCC) Bassem Winters MD [address] [place] [address] [place] [address] Referral ID Status Reason Start Date Expiration Date Visits Requested Visits Authorized [id number] Pending Review Specialty Services Required 12/14/[phone] Encounter Details Date Type Department Care Team (Late st Contact Info) Description 03/04/2024 8:45 AM EDT Office Visit Cardiology, [facility] [address] [place], [place] [id number] Diane Saleh, [address] [facility] [place] [address] Symptomatic sinus bradycardia*; RBBB (right bundle [...] Nasal Solution (Astelin)Indications :Nasal congestion Administer 1 [place] into nostril in the morning and 1 [place] before bedtime. 30 mL 2 10/21/2023 Active [...] zio patch Referring Provider: Dr. Winters General Chief Drafter: Dr. Carranza Cardiac Problems: Irreversible symptomatic sinus [...] 0.1 % Nasal Solution (Astelin) Administer 1 [place] into nostril in the morning and 1 [place] before bedtime. 30 mL 2 Triamcinolone Acetonide [...] performed by Dexter Nazario MD at OR [facility] REMOVE CATARACT, INSERT LENS PROSTH Right 03/17/2017 right EXTRACAPSULAR CATARACT REMOVAL WITH INTRAOCULAR LENS performed by Dexter Nazario MD at OR [facility] VAS DUPLEX VENOUS LE UNILAT Right 06/18/2017 no DVT Review of patient's allergies indicates: No Known Allergies Family History Problem Relation Name Age of Onset Glaucoma Sister Patient thinks that sister has glaucoma but not sure Heart Disorder Brother [place] Cancer Brother Other (Other [Other]) None Denies [...] the longest. Isolated SVEs were occasional (2.4%, [address]), and no SVE Couplets or SVE Triplets were present. Isolated VEs were frequent (7.9%, [address]), VE Couplets were rare (<1.0%, 1), and [...] indeterminate. Consider obtaining an EKG and long-term psychiatric rn. The LV wall thickness is mildly increased [...] documented in this encounter Nursing Notes * Krystal Betancourt LPN - 03/04/2024 8:47 AM EDT Examination [...] table with personnel. documented in this encounter Plan of Treatment Upcoming Encounters Date Type Department Care Team (Late st Contact Info) Description 03/18/2024 10:00 AM EDT Office Visit Hepatology, [facility] [address] [place] [address] Gertrudis Luna MD [address] [place], [place] [address] [place] [address] 05/02/2024 10:00 AM EDT Office Visit Cardiology, [facility] [address] [place] [address] Dionte Carranza DO [address] [facility] [place] [address] 05/05/2024 9:00 AM EDT Office Visit [address] [phone] Bassem Winters MD [address] [place] [address] [place] [address] Scheduled Orders Name Type Priority Associated Diagnoses Orde r Schedule CBC Lab Routine Symptomatic sinus bradycardia RBBB (right bundle branch block) LAFB (left anterior fascicular block) NSVT (nonsustained ventricular tachycardia) (HCC) 1st degree AV block Expected: 03/04/2024, Expires: 03/04/2025 BASIC METABOLIC PANEL Lab Routine Symptomatic sinus bradycardia RBBB (right bundle branch block) LAFB (left anterior fascicular block) NSVT (nonsustained ventricular tachycardia) (HCC) 1st degree AV block Expected: 03/04/2024, Expires: 03/04/2025 Health Maintenance Due Date Last Done Comments [...] this encounter Medical Devices Implanted Type Area Ship Ceiler Device Identifier Shelf Expiration Date Model / Serial / Lot Lens Intraoc 17.0 - [id number] - [id number] Implanted:Qty: 1 on 03/03/2017 by Dexter Nazario MD at OR [facility] Left: Eye [employer]OMB 08/02/2021 [id number] / [id number] / [id number] Lens Intraoc 16.0 - [id number] - [id number] Implanted:Qty: 1 on 03/17/2017 by Dxeter Nazario MD at [facility] Right: Eye BAUSCH [employer] LOMB 08/02/2021 [id number] / [id number] / [id number] documented as of this encounter Visit Diagnoses Diagnosis Symptomatic sinus [...] and were consensually agreed upon. Care Teams Architectural Wood Model Maker Relationship Specialty Start Date End Date Bassem Winters MD [address] [place] [address] [place] [address] PCP - General Family Medicine 10/21/23 documented as of this encounter"
--- OUTSIDE RECORDS SUMMARY | 2024-03-13 20:57 | External Medical Summary | Summary of Care ---
Author Name Unknown Organization [facility] Address [address] [place] [address] Phone [phone] Care Team Providers Care Underwater Hunter Name Role Phone Bassem Winters MD Primary Care Provide r Reason for Visit * Reason Comments Consultation * Evaluate & Treat - Unlimited Visits (Within 30 days (routine)) - Pending Review Specialty Diagnoses / Procedures Referred By Contact Referred To Contact Cardiac Electrophysiology / Cardiology Diagnoses Ventricular tachycardia (HCC) Bassem Winters MD [address] [place] [address] [place] [address] Referral ID Status Reason Start Date Expiration Date Visits Requested Visits Authorized [id number] Pending Review Specialty Services Required 12/14/[phone] Encounter Details Date Type Department Care Team (Late st Contact Info) Description 03/04/2024 8:45 AM EDT Office Visit Cardiology, [facility] [address] [place], [place] [phone] Diane Saleh, [address] [facility] [place] [address] Symptomatic sinus bradycardia*; RBBB [...] Nasal Solution (Astelin)Indications :Nasal congestion Administer 1 [place] into nostril in the morning and 1 [place] before bedtime. 30 mL 2 10/21/2023 Active [...] zio patch Referring Provider: Dr. Winters General Splunk Dashboard Developer: Dr. Carranza Cardiac Problems: Irreversible symptomatic sinus [...] 0.1 % Nasal Solution (Astelin) Administer 1 [place] into nostril in the morning and 1 [place] before bedtime. 30 mL 2 Triamcinolone Acetonide [...] performed by Dexter Nazario MD at OR [facility] REMOVE CATARACT, INSERT LENS PROSTH Right 03/17/2017 right EXTRACAPSULAR CATARACT REMOVAL WITH INTRAOCULAR LENS performed by Dexter Nazario MD at OR [facility] VAS DUPLEX VENOUS LE UNILAT Right 06/18/2017 no DVT Review of patient's allergies indicates: No Known Allergies Family History Problem Relation Name Age of Onset Glaucoma Sister Patient thinks that sister has glaucoma but not sure Heart Disorder Brother [place] Cancer Brother Other (Other [Other]) None Denies [...] the longest. Isolated SVEs were occasional (2.4%, [address]), and no SVE Couplets or SVE Triplets were present. Isolated VEs were frequent (7.9%, [address]), VE Couplets were rare (<1.0%, 1), and [...] indeterminate. Consider obtaining an EKG and long-term gambling monitor. The LV wall thickness is mildly [...] Notes * Elise Arias LPN - 03/04/2024 8:47 [...] 03/18/2024 10:00 AM EDT Office Visit Hepatology, [facility] [address] [facility] [place] [address] Gertrudis Luna MD [address] [place] [address] 03/25/2024 10:00 AM EDT Cardiac Studies Cardiology, [facility] [address] [facility] [place] [address] [place] [address] [place] [address] 05/02/2024 10:00 AM EDT Office [facility], [facility] [place] [address] Dionte Carranza, [address] [facility] [place] [address] 05/05/2024 9:00 AM EDT Office Visit Family Medicine [address] [place] [phone] Bassem Winters MD [address] [place] [address] [place] [address] 10/18/2024 10:00 AM EDT Office Visit Cardiology, [facility] [place] [address] Malena Waters CRNP [facility] [address] Scheduled Orders Name Type Priority Associated Diagnoses [...] this encounter Medical Devices Implanted Type Area Piece Cutter Device Identifier Shelf Expiration Date Model / Serial / Lot Lens Intraoc 17.0 - [id number] - [id number] Implanted:Qty: 1 on 03/03/2017 by Dexter Nazario MD at OR [facility] Left: Eye [employer]CH [employer] LOMB 08/02/2021 [id number] / [id number] / [id number] Lens Intraoc 16.0 - [id number] - [id number] Implanted:Qty: 1 on 03/17/2017 by Dexter Nazario MD at OR [facility] Right: Eye BAUSCH [employer] LOMB 08/02/2021 [id number] / [id number] / [id number] documented as of this encounter Results * [...] 146 mmol/L 03/04/2024 11:12 AM EDT [facility] [place] [facility]-10 Potassium 3.6 3.5 - 5.1 mmol/L 03/04/2024 11:12 AM EDT [facility] [place] 57-10 Chloride 97(L) 98 - 107 mmol/L 03/04/2024 11:12 AM EDT [facility] 57-10 CO2 25 22 - 32 mmol/L 03/04/2024 11:12 AM EDT [facility] [place] 57-10 Anion Gap 13 7 - 15 mmol/L 03/04/2024 11:12 AM EDT [facility] [place] 57-10 Glucose 119 70 - 120 mg/dL 03/04/2024 11:12 AM EDT [facility] 57-10 Calcium 9.3 8.4 - 10.2 mg/dL 03/04/2024 11:12 AM EDT [facility] [place] 5710 Blood Venous blood specimen / Unknown Venipuncture / Unknown 03/04/2024 10:06 AM EDT 03/04/2024 10:06 AM EDT Diane Saleh DO LAB BLOOD [facility] [address] [place] [address] * (ABNORMAL) CBC (03/04/2024 10:06 AM EDT) WBC 8.10 4.00 - 10.80 K/uL 03/04/2024 10:46 AM EDT [facility] [place] 5710 RBC 4.96 4.50 - 5.25 M/uL 03/04/2024 10:46 AM EDT [facility] [place] 57-10 HGB 17.0(H) 14.0 - 16.8 g/dL 03/04/2024 10:46 AM EDT [facility] [place] 5710 HCT 49.1(H) 40.0 - 48.4 % 03/04/2024 10:46 AM EDT [facility] [place] 5710 MCV 99.0 82.0 - 99.5 fL 03/04/2024 10:46 AM EDT [facility] [place] 5710 MCH 34.3 27.0 - 34.0 pg 03/04/2024 10:46 AM EDT [facility] [place] 57-10 MCHC 34.6 32.0 - 36.0 g/dL [...] Saleh DO LAB BLOOD [facility]10 [facility] [place] [address] documented in this encounter Visit Diagnoses Diagnosis [...] and were consensually agreed upon. Care Teams Underwater Hunter Relationship Specialty Start Date End Date Bassem Winters MD [address] [place] [address] [place] [address] PCP - General Family Medicine 10/21/23 documented as of this encounter"
--- OUTSIDE RECORDS SUMMARY | 2024-03-13 20:57 | External Medical Summary | Summary of Care ---
Author Name Unknown Organization [facility] Address [address] [facility] [place] [address] Phone [phone] Care Team Providers Care Key Holder Name Role Phone Bassem Winters MD Primary Care Provide r Reason for Visit * Reason Comments Consultation * Evaluate & Treat - Unlimited Visits (Within 30 days (routine)) - Pending Review Specialty Diagnoses / Procedures Referred By Contact Referred To Contact Cardiac Electrophysiology / Cardiology Diagnoses Ventricular tachycardia (HCC) Bassem Winters MD [address] [place] [address] [place] [address] Referral ID Status Reason Start Date Expiration Date Visits Requested Visits Authorized [id number] Pending Review Specialty Services Required 12/14/[phone] Encounter Details Date Type Department Care Team (Late st Contact Info) Description 03/04/2024 8:45 AM EDT Office Visit Cardiology, [facility] 132 [place], [place] [phone] Diane Saleh, [address] [facility] [place] [address] Symptomatic sinus bradycardia*; RBBB [...] Nasal Solution (Astelin)Indications :Nasal congestion Administer 1 [place] into nostril in the morning and 1 [place] before bedtime. 30 mL 2 10/21/2023 Active [...] zio patch Referring Provider: Dr. Winters General Ela Teacher: Dr. Carranza Cardiac Problems: Irreversible symptomatic sinus [...] 0.1 % Nasal Solution (Astelin) Administer 1 [place] into nostril in the morning and 1 [place] before bedtime. 30 mL 2 Triamcinolone Acetonide [...] performed by Dexter Nazario MD at OR [facility] REMOVE CATARACT, INSERT LENS PROSTH Right 03/17/2017 right EXTRACAPSULAR CATARACT REMOVAL WITH INTRAOCULAR LENS performed by Dexter Nazario MD at OR [facility] VAS DUPLEX VENOUS LE UNILAT Right 06/18/2017 no DVT Review of patient's allergies indicates: No Known Allergies Family History Problem Relation Name Age of Onset Glaucoma Sister Patient thinks that sister has glaucoma but not sure Heart Disorder Brother ID Cancer Brother Other (Other [Other]) None Denies [...] the longest. Isolated SVEs were occasional (2.4%, [address]), and no SVE Couplets or SVE Triplets were present. Isolated VEs were frequent (7.9%, [address]), VE Couplets were rare (<1.0%, 1), and [...] indeterminate. Consider obtaining an EKG and long-term desk monitor. The LV wall thickness is mildly [...] 03/18/2024 10:00 AM EDT Office Visit Hepatology, [facility] [address] [place] [address] eGrtrudis Luna MD [address] [place], [place] [address] [place] [address] 05/02/2024 10:00 AM EDT Office Visit Cardiology, [facility] [address] [place] [address] Dionte Carranza DO 132 [facility] [place] [address] 05/05/2024 9:00 AM EDT Office Visit [address] [address] Bassem Winters MD [address] [place] [address] [place] [address] Scheduled Orders Name Type Priority Associated [...] this encounter Medical Devices Implanted Type Area Care Administrative Tech Device Identifier Shelf Expiration Date Model / Serial / Lot Lens Intraoc 17.0 - [id number] - [id number] Implanted:Qty: 1 on 03/03/2017 by Dexter Nazario MD at OR [facility] Left: Eye BAUSCH [employer] LOMB 08/02/2021 [id number] / [id number] / [id number] Lens Intraoc 16.0 - [id number] - [id number] Implanted:Qty: 1 on 03/17/2017 by Dexter Nazario MD at [facility] Right: Eye BAUSCH [employer] LOMB 08/02/2021 [id number] / [id number] / [id number] documented as of this encounter Visit Diagnoses [...] and were consensually agreed upon. Care Teams Key Holder Relationship Specialty Start Date End Date Bassem Winters MD [address] [place] [address] [place] [address] PCP - General Family Medicine 10/21/23 documented as of this encounter"
--- OUTSIDE RECORDS SUMMARY | 2024-03-13 20:57 | External Medical Summary | Summary of Care ---
Author Name Unknown Organization [facility] Address [address] [facility] [place] [address] Phone [phone] Care Team Providers Care Biofuels Research Scientist Name Role Phone Bassem Winters MD Primary Care Provide r Reason for Visit * Reason Onset Date Comments Test Results 02/26/2024 Nuc stress test Encounter Details Date Type Department Care Team (Late st Contact Info) Description 02/26/2024 Telephone Cardiology, [facility] [address] [place] [facility] [place] [address] Dionte Carranza, [address] [place] [address] Test Results (Nuc stress test) Allergies No known active allergiesdocumented as of this encounter (statuses as of 02/26/2024) Medications Medication Sig Dispensed Refills Start Date [...] Nasal Solution (Astelin)Indications :Nasal congestion Administer 1 [place] into nostril in the morning and 1 [place] before bedtime. 30 mL 2 10/21/2023 Active [...] as of this encounter (statuses as of 02/26/2024) Active Problems Problem Noted Date Diagnosed Date [...] as of this encounter (statuses as of 02/26/2024) Resolved Problems Problem Noted Date Diagnosed Date Resolved Date Gouty arthropathy 05/30/2004 05/17/2009 Overview: ICD-9 Code Update ICD-10 update of inactive term documented as of this encounter (statuses as of 02/26/2024) Immunizations Name Administration Dates Next Due COVID-19 mRNA, LNP-s, No Pre serve, 2-Dose Series ([employer] Prep) 10/09/2020,09/18/2020 Covid-19, Mrna, Lnp-s, Pf, B ivalent, [...] encounter Miscellaneous Notes * Telephone Encounter - Krystal Betancourt LPN - 02/26/2024 11:50 AM EDT Letter sent per request * Telephone Encounter - Krystal Betancourt LPN - 02/26/2024 11:45 AM EDT ----- Message from Dionte Carranza DO sent at 02/25/2024 3:44 PM EDT ----- I attempted to reach the patient/family by phone to discuss results of his nuclear stress test fromyesterday. Was unable to connect with the patient and so therefore I left a brief voicemail messagethat the stress test was normal. Cardiology nursing, please follow this up by paper letter and notify patient that the nuclear stress test on 02/24/2024 revealed normal blood flow to the heart muscle. He should continue his present treatment and keep his upcoming electrophysiology appointment on 03/04/[address] Saleh as planned. Dionte Carranza DO documented in this encounter Plan of Treatment Upcoming Encounters Date Type Department Care Team (Late st Contact Info) Description 03/04/2024 8:45 AM EDT Office Visit Cardiology, [facility] [address] [facility] [place] [address] Diane Saleh DO [address] [facility] [place] [address] 03/18/2024 10:00 AM EDT Office Visit Hepatology, [facility] [address] [facility] [place] [address] Gertrudis Luna MD [address] [place], [place] [address] [address] 05/02/2024 10:00 AM EDT Office Visit Cardiology, [facility] 132 [facility] [place] [address] Dionet Carranza DO 132 [facility] [place] [address] 05/05/2024 9:00 AM EDT Office Visit Family Medicine [address] [place] [phone] Bassem Winters MD [address] [place] [address] [place] [address] Health Maintenance Due Date Last Done Comments [...] this encounter Medical Devices Implanted Type Area Vp Emerging Media Device Identifier Shelf Expiration Date Model / Serial / Lot Lens Intraoc 17.0 - [id number] - [id number] Implanted:Qty: 1 on 03/03/2017 by Dexter Nazario MD at OR [facility] Left: Eye [employer]OM[employer] 08/02/2021 [id number] / [id number] / [id number] Lens Intraoc 16.0 - [id number] - [id number] Implanted:Qty: 1 on 03/17/2017 by Dexter Nazario MD at OR [facility] Right: Eye [employer]OM[employer] 08/02/2021 [id number] / [id number] / [id number] documented as of this encounter Advance Directives [...] and were consensually agreed upon. Care Teams Biofuels Research Scientist Relationship Specialty Start Date End Date Bassem Winters MD [address] [place] [address] [place] [address] PCP - General Family Medicine 10/21/23 documented as of this encounter
--- OUTSIDE RECORDS SUMMARY | 2024-03-13 20:57 | External Medical Summary | Summary of Care ---
Author Name Unknown Organization [facility] Address [address] [facility] [place] [address] Phone [phone] Care Team Providers Care Air Quality Consultant Name Role Phone Bassem Winters MD Primary Care Provide r Reason for Visit * Reason Comments Outpatient Testing Encounter Details Date Type Department Care Team (Late st Contact Info) Description 03/04/2024 10:00 AM EDT Laboratory Laboratory, [facility] 132 [place] [phone] [facility] [address] [place] [address] Symptomatic sinus bradycardia; RBBB (right bundle branch block); LAFB (left [...] Nasal Solution (Astelin)Indications :Nasal congestion Administer 1 [place] into nostril in the morning and 1 [place] before bedtime. 30 mL 2 10/21/2023 Active [...] on file documented as of this encounter Plan of Treatment Upcoming Encounters Date Type Department Care Team (Late st Contact Info) Description 03/18/2024 10:00 AM EDT Office Visit Hepatology, [facility] [place] [phone] Gertrudis Luna MD [address] [place] [phone] 03/25/2024 10:00 AM EDT Cardiac Studies Cardiology, [facility] [address] [place] [address] [place] [address] [place] [address] 05/02/2024 10:00 AM EDT Office Visit [facility]iology, [facility] [place] [address] Dionte Carranza DO [address] [place] [address] 05/05/2024 9:00 AM EDT Office Visit Family [address] [place] [phone] Bassem Winters MD [address] [place] [address] [place] [address] 10/18/2024 10:00 AM EDT Office Visit Cardiology, [facility] [place] [address] Malena Waters CRNP [address] [place], [place] [address] [address] Pending Results Name Type Priority Associated Diagnoses Date /Time CBC Lab Routine Symptomatic sinus bradycardia RBBB (right bundle branch block) LAFB (left anterior fascicular block) NSVT (nonsustained ventricular tachycardia) (HCC) 1st degree AV block 03/04/2024 10:06 AM EDT BASIC METABOLIC PANEL Lab Routine Symptomatic sinus bradycardia RBBB (right bundle branch block) LAFB (left anterior fascicular block) NSVT (nonsustained ventricular tachycardia) (HCC) 1st degree AV block 03/04/2024 10:06 AM EDT Health Maintenance Due Date Last Done Comments [...] this encounter Medical Devices Implanted Type Area Adult Care Manager Device Identifier Shelf Expiration Date Model / Serial / Lot Lens Intraoc 17.0 - [id number] - [id number] Implanted:Qty: 1 on 03/03/2017 by Dexter Nazario MD at OR [facility] Left: Eye [employer]OM[employer] 08/02/2021 [id number] / [id number] / [id number] Lens Intraoc 16.0 - [id number] - [id number] Implanted:Qty: 1 on 03/17/2017 by Dexter Nazario MD at OR [facility] Right: Eye [employer]OMB 08/02/2021 [id number] / [id number] / [id number] documented as of this encounter Visit Diagnoses Diagnosis Symptomatic sinus bradycardia Other specified cardiac dysrhythmias RBBB (right bundle [...] and were consensually agreed upon. Care Teams Air Quality Consultant Relationship Specialty Start Date End Date Bassem Winters MD [address] [place] [address] [place] [id number] PCP - General Family Medicine 10/21/23 documented as of this encounter
--- OUTSIDE RECORDS SUMMARY | 2024-03-13 20:57 | External Medical Summary ---
Author Name Unknown Address Unknown Organization K0G[facility] [address] [place] [address] Laboratory Report Ordering Provider Test Date Status CHINMAY RIVERA 03/04/2024 10:06:14 Final Observation Date Value Abnormality Reference (Units ) Status WBC, Total 03/04/2024 10:06:14 8.10 4.00-10.8 0 (K/uL) Final RBC 03/04/2024 10:06:14 4.96 4.50-5.25 (M/uL) Final Hemoglobin 03/04/2024 10:06:14 17.0 Above high normal 1 4.0-16.8 (g/dL) Final HCT 03/04/2024 10:06:14 49.1 Above high normal 40 .0-48.4 (%) Final MCV 03/04/2024 10:06:14 99.0 82.0-99.5 (fL) Final MCH 03/04/2024 10:06:14 34.3 27.0-34.0 (pg) Final MCHC 03/04/2024 10:06:14 34.6 32.0-36.0 (g/dL) Final RDW 03/04/2024 10:06:14 15.2 11.5-15.5 (%) Final Platelets 03/04/2024 10:06:14 86 Below low normal 140 -400 (K/uL) Final MPV 03/04/2024 10:06:14 10.5 6.6-11.1 ( fL) Final Performing Location [facility]ORY [facility] [place] [address] [place] [address]
--- OUTSIDE RECORDS SUMMARY | 2024-03-13 20:57 | External Medical Summary | Summary of Care ---
Author Name Unknown Organization [facility] Address [address] [place] [address] Phone [phone] Care Team Providers Care Wood Tank Builder Name Role Phone Bassem Winters MD Primary Care Provide r Reason for Referral * Medication Prior Authorization - Closed Specialty Diagnoses / Procedures Referred By Ghanshyam cano Referred To Contact Diagnoses Compression fracture of L2 vertebra with routine healing, subsequent encounter Mynor Olivier MD [address] [place] [address] [place] [address] Referral ID Status Reason Start Date Expiration Date Visits Re quested Visits Authorized [id number] Closed 999 999 * Evaluate & Treat - Unlimited Visits (Within 3 days (urgent)) - Authorized Specialty Diagnoses / Procedures Referred By Ghanshyam cano Referred To Contact HOME CARE / Home Care Diagnoses Compression fracture of L2 vertebra with routine healing, subsequent encounter Mynor Olivier MD [address] [place] [address] [place] [address] Referral ID Status Reason Start Date Expiration Date Visits Requested Visits Authorized [id number] Authorized Specialty Services Required 01/25/2024 03/25/2030 999 999 Question Answer Referral Priority Within 3 days (urgent) Where should this appointment be scheduled? Makenna Wang Documentation of [id number] Encounter Addendum Patient Name: Alphonse Hi I certify that this patient is under my care and that I, or a nurse practitioner or physician's compounding assistant working with me, had a [id number] encounter that meets the physician [id number] encounter requirements with this patient on: 01/25/2024 The encounter with the patient was in whole, or in part, for the following medical condition, which is the primary reason for home health care (List medical condition): Gait dysfunction I certify that, based on my findings, the following services are medically necessary home health services: Physical Therapy and Speech Language Pathology To provide the following care/treatments: (All hospitalists not following the patient after discharge should complete this section): pain management, ambulation Primary Care Physician to follow home care plan of care after discharge: Singh My clinical findings support the need for the above services because: fracture L2 Further, I certify that my clinical findings support that this patient is homebound (i.e. Absences from home require considerable and taxing effort and are for medical reasons or adventist services or infrequently or of short duration when for other reason) because: Pain, weakness Physician Signature: Date of Signature: Physician Printed Name: Mynor Olivier MD Reason for Visit * Reason Comments Hospital Follow-Up Encounter Details Date Type Department Care Team (Late st Contact Info) Description 01/25/2024 7:40 AM EDT Office Visit Family Medicine [address] [place] [address] Mynor Olivier MD [address] [place] [address] [place] [address] Compression fracture of L2 vertebra with routine healing, subsequent encounter*; Alcoholic cirrhosis of liver without ascites (HCC); NSVT (nonsustained ventricular tachycardia) (HCC); Right bundle branch block Allergies No known active allergiesdocumented as of this encounter (statuses as of 02/22/2024) Medications Medication Sig Dispensed Refills Start Date End Date Status CENTRUM SILVER PO TABS One tablet daily Active Spironolactone 25 MG Oral Tablet (Aldactone)Indica tions:Venous insufficiency of both lower extremities TAKE 1 TABLET BY MOUTH EVERY DAY IN THE MORNING 90 Tablet 1 4 Active Furosemide 40 MG Oral Tablet (Lasix)Indication s:Venous insufficiency of both lower extremities TAKE 1-2 TABLETS BY MOUTH DAILY 180 Tablet 1 4 Active Thiamine HCl 100 MG Oral Tablet (vitamin B-1) TAKE 1 TABLET BY MOUTH EVERY DAY IN THE MORNING 90 Tablet 1 4 Active Folic Acid 1 MG Oral Tablet TAKE 1 TABLET BY MOUTH EVERY DAY IN THE MORNING 90 Tablet 1 4 Active Azelastine HCl 0.1 % Nasal Solution (Astelin)Indicati ons:Nasal congestion Administer 1 [place] into nostril in the morning and 1 [place] before bedtime. 30 mL 2 4 Active traMADol HCl 50 MG Oral Tablet (Ultram)Indicatio ns:Compression fracture of L2 vertebra with routine healing, subsequent encounter Take 2 Tablets by mouth every 6 hours as needed for Pain, Severe. 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 4 01/25/20 24 Discontinued(Med ication/Dose Changed) oxyCODONE HCl 5 MG Oral Tablet (Oxy IR)Indications:Co mpression fracture of L2 vertebra with routine healing, subsequent encounter Take 1 Tablet by mouth every 4 hours as needed for Pain, Severe. 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 05/17/2009 Overview: ICD-9 Code Update ICD-10 update of inactive term documented as of this encounter (statuses as of 02/22/2024) Immunizations Name Administration Dates Next Due COVID-19 [...] Sign Reading Time Taken Comments Blood Pressure 118/60 01/25/2024 7:29 AM EDT Pulse 52 01/25/2024 7:29 AM EDT Temperature 36.4 C (97.6 F) 01/25/2024 7:29 AM ED T Respiratory Rate 16 01/25/2024 7:29 AM EDT Oxygen Saturation 100% 01/25/2024 7:29 AM EDT Inhaled Oxygen Concentration - - Weight 101.6 kg (224 lb) 01/25/2024 7:29 AM EDT Height 175.3 cm (5' 9") 01/25/2024 7:29 AM EDT Body Mass Index 33.08 01/25/2024 7:29 AM EDT documented in this encounter Progress Notes * Mynor Olivier MD - 01/25/2024 7:35 AM EDT Alphonse was seen in ER 01/19 for accidental head injury and fall. He had a closed head injury, closed compression fracture of L2. They saw a small lymph node of parotid gland on left as well. He has had multiple falls the tramadol is not helping. He has also tried Ice and heat. asks about a raised toilet seat with arms, and Home Health. He has weakness in his legs, back pain that does not really radiate. She asks can he see ortho here. I'm not sure he needs a spine surgeon at this point. Denies nausea, vomiting, or diarrhea. He has some incontinence anyway. Pt needs a hospital bed with Gel Overlay due to compression fractures of back He has pain from other injuries through the years. 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 NSVT (nonsustained ventricular tachycardia) (HCC) 12/29/2023 Olecranon bursitis 2000 right elbow, saw Dr Mart Retinal tear [...] performed by Dexter Nazario MD at OR [facility] REMOVE CATARACT, INSERT LENS PROSTH Right 03/17/2017 right EXTRACAPSULAR CATARACT REMOVAL WITH INTRAOCULAR LENS performed by Dexter Nazario MD at OR [facility] VAS DUPLEX VENOUS LE UNILAT Right 06/18/2017 no DVT Review of patient's allergies indicates: No Known Allergies Social History Socioeconomic History Marital status: Spouse name: Not on file Number of children: Not on file Years of education: Not on file Highest education level: Not on file Occupational History Not on file Tobacco Use Smoking status: Former Current packs/day: 0.00 Types: Cigarettes Quit date: 08/03/1984 Years since quittin.5 Smokeless tobacco: Former Tobacco comments: quit 20 [...] Needs: Not on file Social Connections: Unknown (01/25/2024) Social Connections How often do you feel lonely or isolated from those around you? (Adult - for ages 18 years and over): Not on file Housing Stability: Not on file Current Outpatient Medications Medication Sig Dispense Refill CENTRUM SILVER PO TABS One tablet daily Triamcinolone Acetonide 0.5 % External Cream (Aristocort) APPLY TOPICALLY TO AFFECTED AREA(S) 2 TIMES A DAY 60 g 5 Spironolactone 25 MG Oral Tablet (Aldactone) TAKE [...] DAY IN THE MORNING 90 Tablet 1 Azelastine HCl 0.1 % Nasal Solution (Astelin) Administer 1 [place] into nostril in the morning and 1 [place] before bedtime. 30 mL 2 No current facility-administered medications for this visit. Immunization History Administered Date(s) Administered COVID-19 mRNA, LNP-s, No Preserve, 2-Dose Series ([employer]) 09/18/2020, 10/09/2020 Covid-19, Mrna, Lnp-s, Pf, Bivalent, 30 Mcg, IM, 12 yrs and above (Pfizer) 10/23/2022 Pneumococcal Conjugate Vacc, 13 Valent (Prevnar) 03/24/2019 Pneumococcal Polysaccharide PPV23 (Pneumovax) 05/09/2010 Seasonal Influenza, PF, 6 M & above, IM , (FluLaval or Fluzone) 06/18/2017, 06/03/2018 Seasonal Influenza, Split, IIV3, With Preserve, Inj 05/09/2010, 05/21/2011, 04/14/2014 TDAP (age 10 and older)(Boostrix) 04/14/2014, 09/15/2019 Triamcinolone Acetonide 08/16/2008 Zoster Vaccine Recombinant (Shingrix) 08/24/2019, 01/31/2020 Results for orders placed or performed in visit on 09/15/22 LIPID PANEL WITH DIRECT LDL IF TG IS HIGH Result Value Ref Range Triglycerides 106 <=174 mg/dL Cholesterol 209 (H) <200 mg/dL HDL Cholesterol 75 >39 mg/dL Non-HDL Cholesterol 134 <=159 mg/dL LDL Cholesterol 113 <=129 mg/dL Results for orders placed or performed in visit on 03/12/18 BASIC METAB PANEL, BMP Result Value Ref Range BUN 9 6 - 20 mg/dL Creatinine 0.8 0.6 - 1.2 mg/dL Estimated Glomerular Filtration Rate >60.0 >60 Sodium 141 135 - 146 mmol/L Potassium 4.1 3.5 - 5.1 mmol/L Chloride 105 98 - 107 mmol/L CO2 24 22 - 32 mmol/L Anion Gap 12 7 - 15 mmol/L Glucose 110 70 - 120 mg/dL Calcium 8.6 8.4 - 10.2 mg/dL Results for orders placed or performed in visit on 10/21/23 COMPREHENSIVE METABOLIC PANEL Result Value Ref Range BUN 15 6 - 20 mg/dL Creatinine 0.8 0.6 - 1.2 mg/dL Estimated Glomerular Filtration Rate 89 >=60 mL/min Sodium 139 135 - 146 mmol/L Potassium 4.5 3.5 - 5.1 mmol/L Chloride 105 98 - 107 mmol/L CO2 24 22 - 32 mmol/L Anion Gap 10 7 - 15 mmol/L Glucose 124 (H) 70 - 120 mg/dL Albumin 3.6 (L) 3.8 - 5.0 g/dL AST 60 (H) 10 - 50 U/L Alkaline Phosphatase 107 35 - 130 U/L Bilirubin, Total 2.8 (H) <=1.2 mg/dL Calcium 9.3 8.4 - 10.2 mg/dL Protein 6.8 6.0 - 8.3 g/dL ALT 36 10 - 50 U/L O: Blood pressure 118/60, pulse 52, temperature 36.4 C (97.6 F), resp. rate 16, height 1.753 m (5' 9"), weight 101.6 kg (224 lb), SpO2 100%. In wheelchair. Neck is supple without adenopathy or thyromegaly. Chest is symmetrical and moves normally. The lungs are clear without wheezes, rales, rhonchi or rubs, and the heart is regular without murmurs or gallops, or ectopy. PMI not displaced. A: Compression fracture of L2 vertebra with routine healing, subsequent encounter (Primary) - DURABLE MEDICAL EQUIPMENT - HOME HEALTH REFERRAL OP - oxyCODONE HCl 5 MG Oral Tablet (Oxy IR); Take 1 Tablet by mouth every 4 hours as needed for Pain,Severe. Alcoholic cirrhosis of liver without ascites (HCC) NSVT (nonsustained ventricular tachycardia) (HCC) Right bundle branch block Follow Up: Return if symptoms worsen or fail to improve. documented in this encounter Nursing Notes * Makenna Navarrete RN - 01/25/2024 7:35 AM EDT Pt was in [facility] ER 01/20/24 pt fell in early January and cut his legs, he was having pain in the legs sothey went to ER because he could not walk well. They gave him Tramadol , xrays were ok documented in this encounter Miscellaneous Notes * Addendum Note - Mynor Olivier MD - 01/25/2024 12:45 PM EDTAddended by: MYNOR OLIVIER on: 01/25/2024 12:45 PM Modules accepted: Orders documented in this encounter Plan of Treatment Upcoming Encounters Date Type Department Care Team (Late st Contact Info) Description 02/24/2024 11:45 AM EDT Imaging [facility] 2nd Floor Cardiology, [place] [address] [facility] [place] [phone] Gw, Excess Time Radiology [place] [address] 03/04/2024 8:45 AM EDT Office Visit Cardiology, [facility] 132 [facility] [place] [address] Diane Saleh, DO [address] [place] [address] [place] [address] 03/18/2024 10:00 AM EDT Office Visit Hepatology, [facility] [address] [place] [address] Gertrudis Luna MD [address] [place] [address] 05/02/2024 10:00 AM EDT Office Visit Cardiology, [facility] [address] [place] [address] Dionte Carranza, [address] [place] [address] 05/05/2024 9:00 AM EDT Office Visit Family Medicine [address] [place] [phone] Bassem Winters MD [address] [place] [address] [place] [address] Scheduled Referrals Name Type Priority Associated Diagnoses Orde r Schedule HOME HEALTH REFERRAL OP Referral Within 3 days (urgent) Compression fracture of L2 vertebra with routine healing, subsequent encounter Ordered: 01/25/2024 Health Maintenance Due Date Last Done Comments [...] this encounter Medical Devices Implanted Type Area Spot Washer Device Identifier Shelf Expiration Date Model / Serial / Lot Lens Intraoc 17.0 - [id number] - [id number] Implanted:Qty: 1 on 03/03/2017 by Dexter Nazario MD at OR [facility] Left: Eye [employer] 08/02/2021 [id number] / [id number] / [id number] Lens Intraoc 16.0 - [id number] - [id number] Implanted:Qty: 1 on 03/17/2017 by Dexter Nazario MD at OR [facility] Right: Eye [employer]OMB 08/02/2021 [id number] / [id number] / [id number] documented as of this encounter Visit Diagnoses Diagnosis Compression fracture of L2 vertebra with routine healing, subsequent encounter- Primary Alcoholic cirrhosis of liver without ascites (HCC) Alcoholic cirrhosis of liver NSVT (nonsustained ventricular tachycardia) (HCC) Paroxysmal ventricular tachycardia Right bundle branch block documented in this encounter Advance Directives [...] and were consensually agreed upon. Care Teams Wood Tank Builder Relationship Specialty Start Date End Date Bassem Winters MD [address] [place] [address] [place] [address] PCP - General Family Medicine 10/21/23 documented as of this encounter
--- OUTSIDE RECORDS SUMMARY | 2024-03-13 20:57 | External Medical Summary | Summary of Care ---
Author Name Unknown Organization [facility] Address [address] [facility] [place] [address] Phone [phone] Care Team Providers Care Blank Driller Name Role Phone Bassem Naik MD Primary Care Provide r Reason for Referral * Evaluate & Treat - Unlimited Visits (Within 30 days (routine)) - Authorized Specialty Diagnoses / Procedures Referred By Contac t Referred To Contact Pain Management / Pain Medicine Diagnoses Compression fracture of L2 vertebra with routine healing, subsequent encounter Bassem Naik MD [address] [place] [address] [place] [address] Referral ID Status Reason Start Date Expiration Date Visits Requested Visits Authorized [id number] Authorized Specialty Services Required 02/10/2024 999 999 Question Answer Referral Priority Within 30 days (routine) Where should this appointment be scheduled? External Reason for referral? Non Interventional Pain Management What is the preferred location to have this test performed? Non [facility] Site Comments Patient Name: Alphonse Hi Date [...] pain if not done previously. Fax No. [facility] [phone] or contact help desk team leader [phone] Fax No. [facility] [phone] or contact help desk team leader [phone] Fax No. [facility] [phone] or contact help desk team leader [phone] Reason for Visit * Reason Onset Date Comments Advice 02/10/2024 Encounter Details Date Type Department Care Team (Late st Contact Info) Description 02/10/2024 Refill Family Medicine [facility] [address] [place] [phone] Bassem Naik MD [address] [place] [address] [place] [address] Compression fracture of L2 vertebra with routine healing, subsequent encounter Allergies No known active allergiesdocumented as of this encounter (statuses as of 02/11/2024) Medications Medication Sig Dispensed Refills Start Date End Date Status CENTRUM SILVER PO TABS One tablet daily Active Triamcinolone Acetonide 0.5 % External Cream (Aristocort)Indicati ons:Venous stasis dermatitis of both lower extremities APPLY TOPICALLY TO AFFECTED AREA(S) 2 TIMES A DAY 60 g 5 10/09/2022 Active Spironolactone 25 MG Oral Tablet (Aldactone)Indicatio [...] Nasal Solution (Astelin)Indications :Nasal congestion Administer 1 [place] into nostril in the morning and 1 [place] before bedtime. 30 mL 2 10/21/2023 Active [...] day with morning and evening meals. Active documented as of this encounter (statuses as of 02/11/2024) Active Problems Problem Noted Date Diagnosed Date [...] as of this encounter (statuses as of 02/11/2024) Resolved Problems Problem Noted Date Diagnosed Date Resolved Date Gouty arthropathy 05/30/2004 05/17/2009 Overview: ICD-9 Code Update ICD-10 update of inactive term documented as of this encounter (statuses as of 02/11/2024) Immunizations Name Administration Dates Next Due COVID-19 mRNA, LNP-s, No Pre serve, 2-Dose Series ([employer]) 10/09/2020,09/18/2020 Covid-19, Mrna, Lnp-s, Pf, B ivalent, 30 Mcg, IM, 12 yrs and above ([employer]) 10/23/2022 Pneumococcal Conjugate Vacc, 13 Valent (Prevnar) [...] encounter Miscellaneous Notes * Telephone Encounter - Diego Browning OSA - 02/11/2024 10:06 AM EDT I called pt and spoke to . Asked her if pt wanted to go to [facility] for Pain Med. She got very mad, had no clue why he couldn't get the medication that [facility] prescribed. I informed her that Dr. Norwood doesn't prescribe that mediation. She insisted I send a message back to Dr. Kaminski (even though I told her he is retired). Please call and discuss this. * Telephone Encounter - Bassem Naik MD - 02/10/2024 3:42 PM EDT Referral signed * Telephone Encounter - Makenna Navarrete RN - 02/10/2024 3:16 PM EDT Pt has compression fractures in back from a fall, seen 01/25/[address] Kaminski. Do you want us to offer pain management for him? * Telephone Encounter - Bassem Naik MD - 02/10/2024 2:56 PM EDT Pls inform the pt that I do not prescribe chronic use of tramadol * Telephone Encounter - Bassem Naik MD - 02/10/2024 2:56 PM EDT Refused Prescriptions: Disp Refills traMADol HCl 50 MG Oral Tablet (Ultram) 60 Tab*0 Sig: Take 2 Tablets by mouth every 6 hours as needed for Pain, Severe. Refused By: BASSEM NAIK Reason for Refusal: Other (comment below) * Telephone Encounter - Cat Mcgrath CMA - 02/10/2024 2:11 PM EDT Pt requested refill from cardiology. Told pt I would send for pcp approval. [facility] documented in this encounter Plan of Treatment Upcoming Encounters Date Type Department Care Team (Late st Contact Info) Description 02/24/2024 11:45 AM EDT Imaging [facility] [address] [place] [phone] Gw, Excess Time Radiology [address] [place] [address] 03/04/2024 8:45 AM EDT Office Visit Cardiology, [facility] [address] [place] [address] Therese Diane Caro, DO [address] [place] [address] 03/18/2024 10:00 AM EDT Office Visit Hepatology, [facility] [address] [facility] [place] [address] Gertrudis Luna MD [address] [facility] [place] [address] 05/02/2024 10:00 AM EDT Office Visit Cardiology, [facility] [address] [facility] [place] [address] Dionte Carranza, DO 132 [facility] [place] [address] 05/05/2024 9:00 AM EDT Office Visit Family Medicine [address] [place] [phone] Bassem Naik MD [address] [place] [address] [place] [address] Scheduled Referrals Name Type Priority Associated Diagnoses Orde r Schedule PAIN MEDICINE REFERRAL OP Referral Within 30 days (routine) Compression fracture of L2 vertebra with routine healing, subsequent encounter Ordered: 02/10/2024 Health Maintenance Due Date Last Done Comments [...] this encounter Medical Devices Implanted Type Area Warehouse Freight Handler Device Identifier Shelf Expiration Date Model / Serial / Lot Lens Intraoc 17.0 - [id number] - [id number] Implanted:Qty: 1 on 03/03/2017 by Dexter Nazario MD at OR [facility] Left: Eye [employer] 08/02/2021 [id number] / [id number] / [id number] Lens Intraoc 16.0 - [id number] - [id number] Implanted:Qty: 1 on 03/17/2017 by Dexter Nazario MD at OR [facility] Right: Eye [employer]OM[employer] 08/02/2021 [id number] / [id number] / [id number] documented as of this encounter Visit Diagnoses Diagnosis Compression fracture of L2 vertebra with routine healing, subsequent encounter documented in this encounter Advance Directives * [...] and were consensually agreed upon. Care Teams Blank Driller Relationship Specialty Start Date End Date Bassem Naik MD [address] [place] [address] [place] [id number] PCP - General Family Medicine 10/21/23 documented as of this encounter
--- OUTSIDE RECORDS SUMMARY | 2024-03-13 20:57 | External Medical Summary | Summary of Care ---
Author Name Unknown Organization [facility] Address [address] [facility] [place] [address] Phone [phone] Care Team Providers Care Underliner Name Role Phone Bassem Winters MD Primary Care Provide r Reason for Visit * Reason Comments Follow Up Encounter Details Date Type Department Care Team (Late st Contact Info) Description 02/10/2024 1:30 PM EDT Office Visit Cardiology, [facility] [address] [facility] [place] [phone] Brenda Cerrato PA-C [address] [facility] [place] [phone] NSVT (nonsustained ventricular tachycardia) (HCC)*; Bifascicular bundle branch block; Frequent PVCs; Premature atrial contractions Allergies No known active allergiesdocumented as of [...] Nasal Solution (Astelin)Indications :Nasal congestion Administer 1 [place] into nostril in the morning and 1 [place] before bedtime. 30 mL 2 10/21/2023 Active [...] mRNA, LNP-s, No Pre serve, 2-Dose Series ([facility]) 10/09/2020,09/18/2020 Covid-19, Mrna, Lnp-s, Pf, B ivalent, 30 Mcg, IM, 12 yrs and above ([facility]) 10/23/2022 Pneumococcal Conjugate Vacc, 13 Valent (Prevnar) [...] Sign Reading Time Taken Comments Blood Pressure 138/70 02/10/2024 1:36 PM EDT Pulse 85 02/10/2024 1:36 PM EDT Temperature - - Respiratory Rate - - Oxygen Saturation 98% 02/10/2024 1:36 PM EDT Inhaled Oxygen Concentration - - Weight 96.6 kg (213 lb) 02/10/2024 1:36 PM EDT Height - - Body Mass Index 31.45 01/25/2024 7:29 AM EDT documented in this encounter Progress Notes * Brenda Cerrato PA-C - 02/10/2024 1:43 PM EDT 02/10/2024 Cardiology Follow Up Primary Credit Risk Analytics Manager: Dr. Carranza Past Medical History: Sinus bradycardia First degree AV block Nonsustained ventricular tachycardia PACs/PVCs HPI: Alphonse Hi is a 83 year old male who presents today for cardiology follow up. Presents today with . States since last visit he was in [facility] ED 01/19 after fall, tripped, did not lose consciousness. Fall occurred a week prior, but he did not seek care until pain worsened. Imaging revealed a L2 compression fracture. He was to follow up with orthopedics, but never did. On 02/02, he was sitting in the shower, slid down to shower floor, couldn't get up. EMS called, states he was unstable and EMS said he "was in defibrillator state", called [facility] who recommended he go to ED. At some point they mentioned he was in afib. Patient refused to go to ED, told to follow up with cardiology. Today, overall feels well. Has back pain and shortness of breath. Denies chest pain, palpitations, edema, PND, orthopnea, lightheadedness, syncope. Currently having difficulty with mobility since fall, using wheelchair. Compliant with all medications. He scheduled for nuclear stress test and EP consult. REVIEW OF SYSTEMS: See HPI for pertinent positives. All others negative other than those noted in the HPI. CONSTITUTIONAL: No change in weight, No weakness, No fatigue and No fevers, No sweats or chills. PULMONARY: No cough, sputum, or hemoptysis, No wheezing, + shortness of breath and No recent changein breathing. CARDIOVASCULAR: No chest pain, No dyspnea on exertion, No edema, No palpitations and No syncope. GASTROINTESTINAL: No abdominal pain, No change in bowel habits, No significant heartburn, No nausea, No vomiting, No diarrhea, No constipation, No blood in stools or black tarry stools. No dysphagia. HEMATOLOGIC: No abnormal bleeding and No bruising. NEUROLOGICAL: Normal balance, No headaches and No weakness. Review of patient's allergies indicates: No Known Allergies Current Outpatient Medications Medication Sig Dispense Refill [...] 0.1 % Nasal Solution (Astelin) Administer 1 [place] into nostril in the morning and 1 [place] before bedtime. 30 mL 2 traMADol HCl 50 MG Oral Tablet (Ultram) Take 2 Tablets by mouth every 6 hours as needed for Pain, Severe. 60 Tablet 0 Calcium Carbonate 1500 (600 Ca) MG Oral Tablet Take 1 Tablet by mouth 2 times a day with morning and evening meals. MEDICAL INSTRUCTIONS Use as directed. Remote pt monitoring per Home Health 1 Each 0 No current facility-administered medications for this visit. 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 NSVT (nonsustained ventricular tachycardia) ([facility]) 12/29/2023 Olecranon bursitis 1999 right elbow, saw Dr Mart Retinal tear 2009 Right bundle branch block 12/29/2023 Thrombocytopenia ([facility]) 09/16/2022 Venous insufficiency of both lower extremities Family History Problem Relation Name Age of Onset Glaucoma Sister Patient thinks that sister has glaucoma but not sure Heart Disorder Brother [place] Cancer Brother Other (Other [Other]) None Denies FH of DM, HTN, Stroke Social History Socioeconomic History Marital status: Tobacco Use Smoking status: Former Current packs/day: 0.00 Types: Cigarettes Quit date: 08/03/1984 Years since quittin.5 Smokeless tobacco: Former Tobacco comments: quit 20 years ago Substance and Sexual Activity Alcohol use: Yes Comment: beer Drug use: No Social Determinants of Health Food Insecurity: No Food Insecurity (03/24/2019) Hunger Vital Sign Worried About Running Out of Food in the Last Year: Never true Ran Out of Food in the Last Year: Never true Social Connections OBJECTIVE/PHYSICAL EXAMINATION: BP 138/70 | Pulse 85 | Wt 96.6 kg (213 lb) | SpO2 98% | BMI 31.45 kg/m | BSA 2.17 m General: No acute distress. A+Ox3. HEENT: Normocephalic. Atraumatic. PERRL. EOMI. Conjunctiva and sclera clear. NECK: No carotid bruits. No JVD. Carotid upstrokes are brisk. Heart: RRR. S1 and S2 noted. No murmur. No rubs or gallops. PMI non displaced. Lungs: Clear to auscultation. No wheezes. No rhonchi. No rales. Abdomen: Normal bowel sounds. Soft. Nontender. No masses or organomegaly. No abdominal bruits. Extremities: No edema. No clubbing or cyanosis. Pulses: radial=2/4, posterior tibial=2/4, dorsalis pedis = 2/4. NEURO: No focal deficits. PSYCH: Appropriate affect and insight. DATA Labs & Imaging Reviewed Below: EKG 02/08/24 Sinus rhythm with 1st degree AV block and frequent supraventricular complexes, 79 bpm, RBBB, Left anterior fascicular block, Bifascicular block EKG 12/29/23 Sinus bradycardia with 1st degree AV block, 45 bpm, blocked PACs in pattern of bigeminy, RBBB, leftanterior fascicular block, bifascicular block Zio 11/18/23 Patient had a min HR of 37 [...] the longest. Isolated SVEs were occasional (2.4%, [address]), and no SVE Couplets or SVE Triplets were present. Isolated VEs were frequent (7.9%, [address]), VE Couplets were rare (<1.0%, 1), and VE Triplets were rare (<1.0%, 454). Inverted QRS complexes possibly due to inverted placement of device. MD notification criteria for Ventricular Tachycardia met - report posted prior to notification per account request (TT). Rhythm interpretation limited by baseline artifact. Symptoms correlating with sensed ventricular and supraventricular ectopy. Echo 11/10/23 The examination is adequate to evaluate the referral indication. Marked bradycardia in the 40s was present during the echocardiogram and the rhythm is indeterminate. Consider obtaining an EKG and long-term monitoring and evaluation advisor. The LV wall thickness is mildly increased (concentric). The left ventricular wall motion is normal. The qualitative LV ejection fraction is 55-59% (normal). The aortic valve has three leaflets. The aortic valve is mildly calcified. Aortic stenosis is absent. Mild tricuspid regurgitation is present. The estimated pulmonary artery systolic pressure is 57-62 mm Hg (moder to severely elevated ). ASSESSMENT/PLAN: 83 year old male 1. NSVT (nonsustained ventricular tachycardia) (HCC) 2. Bifascicular bundle branch block 3. Frequent PVCs 4. Premature atrial contractions - patient presents after recent mechanical falls, denies lightheadedness, presyncope, syncope - concern for afib, denies palpitations - EKG shows sinus rhythm with frequent supraventricular complexes - currently asymptomatic and euvolemic on exam - recommend to keep nuclear stress test as scheduled - keep EP f/u due to conduction system disease - continue current medications, no changes today - stay well hydrated, change positions slowly DISPOSITION: Follow up as scheduled or sooner if symptoms worsen/fail to improve. All questions were answered to the patients satisfaction. Patient advised to report to ED with any and all emergencies. The patient agrees to the above plan and will call with additional questions or concerns. Brenda Cerrato PA-C Cardiology, [address] [place] [address] I spent a total of 40 minutes on the date of service in preparation, delivery, and documentation ofthe care provided to Alphonse Hi excluding any time spent in the performance of separately billedservices. This chart was completed in part utilizing [employer] Speech Voice Recognition Software. Grammatical errors, random word insertions, pronoun errors, and incomplete sentences are an occasional consequence of this system due to software limitations, ambient noise, and hardware issues. Any formal questions or concerns about the content, text, or information contained within the body of this dictation should be directly addressed to the provider for clarification. documented in this encounter Procedure Notes * Andre Anglin DO - 02/10/2024 1:47 PM EDTAssociated Order(s): EKG REASON FOR STUDY: recent fall, RBBB;recent fall, RBBB CONCLUSIONS: Sinus rhythm with first degree AV block and frequent supraventricular complexes Right bundle branch block Left anterior fascicular block Bifascicular block Left ventricular hypertrophy T wave abnormality, consider lateral ischemia Abnormal ECG When compared with ECG of 29-Dec-2023 10:24, Heart rate has increased by 34 bpm Ventricular Rate: 79 Atrial Rate: 113 QRS Duration: 164 QT/QTc: 426/488 ms P-R-T [place]: 0 : -59 : 96 degrees documented in this encounter Nursing Notes * Cat Mcgrath CMA - 02/10/2024 1:39 PM EDT Examination Room: 7 Name: Alphonse Hi Date of : (1940) Reason for Visit: Follow up Interim Hospitalization(s): none Problems/Concerns: none Chest Pain/SOB: SOB [facility] is a way you can talk to your provider online through e-mail. Would you like to sign up? I can activate it for you? DECLINES Patient was instructed to not get up on the exam table until directed and assisted by their provider; patient is to remain seated in the chair/ wheelchair/ exam table for fall prevention and safety reasons. Patient is aware to have assistance to step down off exam table with personnel. Patient voiced full comprehension of instructions. documented in this encounter Plan of Treatment Upcoming Encounters Date Type Department Care Team (Late st Contact Info) Description 02/24/2024 11:45 AM EDT Imaging [facility] 2nd Floor Cardiology, [place] [address] [place] [phone] Gw, Excess Time Radiology [address] [place] [address] 03/04/2024 8:45 AM EDT Office Visit Cardiology, [address] [place] [address] Therese Diane Elizondo, DO [address] [place] [address] 03/18/2024 10:00 AM EDT Office Visit Hepatology, [facility] 132 [facility] [place] [address] Gertrudis Luna MD [address] [place] [address] [place] [address] 05/02/2024 10:00 AM EDT Office Visit Cardiology, [facility] 132 [facility] [place] [address] Dionte Carranza, DO 132 [facility] [place] [address] 05/05/2024 9:00 AM EDT Office Visit Family Medicine [address] [phone] Bassem Winters MD [address] [place] [address] [place] [address] Health Maintenance Due Date Last Done Comments [...] this encounter Medical Devices Implanted Type Area Business Services Administrator Device Identifier Shelf Expiration Date Model / Serial / Lot Lens Intraoc 17.0 - [id number] - [id number] Implanted:Qty: 1 on 03/03/2017 by Dexter Nazario MD at OR [facility] Left: Eye [employer] 08/02/2021 [id number] / [id number] / [id number] Lens Intraoc 16.0 - [id number] - [id number] Implanted:Qty: 1 on 03/17/2017 by Dexter Nazario MD at OR [facility] Right: Eye [employer] 08/02/2021 [id number] / [id number] / [id number] documented as of this encounter Procedures Procedure Name Priority Date/Time Associated Diagnosis Comments NM ECG ROUTINE ECG W/LEAST 12 LDS W/I&R Routine 02/10/2024 1:47 PM EDT NSVT (nonsustained ventricular tachycardia) (HCC) Bifascicular bundle branch block documented in this encounter Results * EKG (02/10/2024 1:47 PM EDT) 02/10/2024 1:47 PM EDT Narrative Procedure Note Andre Anglin DO - 02/10/2024 1:47 PM EDT REASON FOR STUDY: recent fall, RBBB;recent fall, RBBB CONCLUSIONS: Sinus rhythm with first degree AV block and frequent supraventricularcomplexes Right bundle branch block Left anterior fascicular block Bifascicular block Left ventricular hypertrophy T wave abnormality, consider lateral ischemia Abnormal ECG When compared with ECG of 29-Dec-2023 10:24, Heart rate has increased by 34 bpm Ventricular Rate: 79 Atrial Rate: 113 QRS Duration: 164 QT/QTc: 426/488 ms P-R-T [place]: 0 : -59 : 96 degrees Brenda Cerrato PA-C [facility] documented in this encounter Visit Diagnoses Diagnosis NSVT (nonsustained ventricular tachycardia) (HCC)- Primary Paroxysmal ventricular tachycardia Bifascicular bundle branch block Other bilateral bundle branch block Frequent PVCs Other premature beats Premature atrial contractions Supraventricular premature beats documented in this encounter Advance Directives * [...] and were consensually agreed upon. Care Teams Underliner Relationship Specialty Start Date End Date Bassem Winters MD [address] [place] [address] [place] [phone] PCP - General Family Medicine 10/21/23 documented as of this encounter
--- OUTSIDE RECORDS SUMMARY | 2024-03-13 20:57 | External Medical Summary | Summary of Care ---
Author Name Unknown Organization [facility] Address [address] [facility] [place] [address] Phone [phone] Care Team Providers Care Correctional Program Specialist Name Role Phone Bassem Winters MD Primary Care Provide r Encounter Details Date Type Department Care Team (Late st Contact Info) Description 02/24/2024 Orders Only Unspecified Department Dionte Carranza, DO [address] [place], [place] [phone] Allergies No known active allergiesdocumented as of this encounter (statuses as of 02/24/2024) Medications Medication Sig Dispensed Refills Start Date [...] Nasal Solution (Astelin)Indications :Nasal congestion Administer 1 [place] into nostril in the morning and 1 [place] before bedtime. 30 mL 2 10/21/2023 Active [...] as of this encounter (statuses as of 02/24/2024) Active Problems Problem Noted Date Diagnosed Date [...] as of this encounter (statuses as of 02/24/2024) Resolved Problems Problem Noted Date Diagnosed Date Resolved Date Gouty arthropathy 05/30/2004 05/17/2009 Overview: ICD-9 Code Update ICD-10 update of inactive term documented as of this encounter (statuses as of 02/24/2024) Immunizations Name Administration Dates Next Due COVID-19 mRNA, LNP-s, No Pre serve, 2-Dose Series (Zenytime) 10/09/2020,09/18/2020 Covid-19, Mrna, Lnp-s, Pf, B ivalent, 30 Mcg, IM, 12 yrs and above (Zenytime) 10/23/2022 Pneumococcal Conjugate Vacc, 13 Valent (Prevnar) [...] 8:45 AM EDT Office Visit Cardiology, [address] [place] [address] Diane Saleh, DO [address] [place] [address] [place] [address] 03/18/2024 10:00 AM EDT Office Visit Hepatology, [facility] [address] [facility] [place] [address] Gertrudis Luna MD [address] [place] [address] [place] [address] 05/02/2024 10:00 AM EDT Office Visit Cardiology, [address] [place] [address] Dionte Carranza, [address] [place] [address] 05/05/2024 9:00 AM EDT Office Visit [address] [place] [phone] Bassem Winters MD [address] [place] [address] [place] [address] Health Maintenance Due Date Last Done Comments [...] this encounter Medical Devices Implanted Type Area Network Control Operators Supervisor Device Identifier Shelf Expiration Date Model / Serial / Lot Lens Intraoc 17.0 - [id number] - [id number] Implanted:Qty: 1 on 03/03/2017 by Dexter Nazario MD at OR [id number] Left: Eye BAUSCH [employer] LOMB 08/02/2021 [id number] / [id number] / [id number] Lens Intraoc 16.0 - [id number] - [id number] Implanted:Qty: 1 on 03/17/2017 by Dexter Nazario MD at OR [facility] Right: Eye BAUSCH & LOMB 08/02/2021 [id number] / [id number] / [id number] documented as of this encounter Procedures Procedure Name Priority Date/Time Associated Diagnosis Comments NM MYOCARDIAL PERFUSION IMAGING SPECT MULTIPLE STUDIES WITH PHARMACOLOGIC INTERVENTION Routine 02/24/2024 12:09 PM EDT documented in this encounter Results * NM MYOCARDIAL PERFUSION IMAGING SPECT MULTIPLE STUDIES WITH PHARMACOLOGIC INTERVENTION (02/24/2024 12:09 PM EDT) 02/24/2024 12:0 9 PM EDT Dionte [facility] CARD[facility] documented in this encounter Advance Directives * [...] and were consensually agreed upon. Care Teams Correctional Program Specialist Relationship Specialty Start Date End Date Bassem Winters MD [address] [place] [address] [place] [address] PCP - General Family Medicine 10/21/23 documented as of this encounter
--- OUTSIDE RECORDS SUMMARY | 2024-03-13 20:57 | External Medical Summary | Summary of Care ---
Author Name Unknown Organization [facility] Address [address] [place] [address] Phone [phone] Care Team Providers Care Warehouse Receiving Supervisor Name Role Phone Bassem Winters MD Primary Care Provide r Reason for Visit * Reason Comments Consultation * Evaluate & Treat - Unlimited Visits (Within 30 days (routine)) - Pending Review Specialty Diagnoses / Procedures Referred By Contact Referred To Contact Cardiac Electrophysiology / Cardiology Diagnoses Ventricular tachycardia (HCC) Bassem Winters MD [address] [place] [address] [place] [address] Referral ID Status Reason Start Date Expiration Date Visits Requested Visits Authorized [id number] Pending Review Specialty Services Required 12/14/[phone] Encounter Details Date Type Department Care Team (Late st Contact Info) Description 03/04/2024 8:45 AM EDT Office Visit Cardiology, [facility] 132 [place], [place] [phone] Diane aSleh, [address] [facility] [place] [address] Symptomatic sinus [...] Nasal Solution (Astelin)Indications :Nasal congestion Administer 1 [place] into nostril in the morning and 1 [place] before bedtime. 30 mL 2 10/21/2023 Active [...] zio patch Referring Provider: Dr. Winters General Code Number Stamper: Dr. Carranza Cardiac Problems: Irreversible symptomatic sinus [...] 0.1 % Nasal Solution (Astelin) Administer 1 [place] into nostril in the morning and 1 [place] before bedtime. 30 mL 2 Triamcinolone Acetonide [...] performed by Dexter Nazario MD at OR [facility] REMOVE CATARACT, INSERT LENS PROSTH Right 03/17/2017 right EXTRACAPSULAR CATARACT REMOVAL WITH INTRAOCULAR LENS performed by Dexter Nazario MD at OR [facility] VAS DUPLEX VENOUS LE UNILAT Right 06/18/2017 no DVT Review of patient's allergies indicates: No Known Allergies Family History Problem Relation Name Age of Onset Glaucoma Sister Patient thinks that sister has glaucoma but not sure Heart Disorder Brother [place] Cancer Brother Other (Other [Other]) None Denies [...] the longest. Isolated SVEs were occasional (2.4%, [address]), and no SVE Couplets or SVE Triplets were present. Isolated VEs were frequent (7.9%, [address]), VE Couplets were rare (<1.0%, 1), and [...] indeterminate. Consider obtaining an EKG and long-term satellite project site monitor. The LV wall thickness is mildly [...] 03/18/2024 10:00 AM EDT Office Visit Hepatology, [facility] 132 [facility] [place] [address] Gertrudis Luna MD [facility] [employer] [place] [address] 03/25/2024 10:00 AM EDT Cardiac Studies Cardiology, [facility] 132 [facility] [place] [address] [facility] [address] [address] 05/02/2024 10:00 AM EDT Office Visit Cardiology, [facility] [address] [place] [address] Dionte Carranza DO [address] [place] [address] 05/05/2024 9:00 AM EDT Office Visit Family Medicine [address] [place] [phone] Bassem Winters MD [address] [place] [address] [place] [address] 10/18/2024 10:00 AM EDT Office Visit Cardiology, [facility] [address] [place] [address] Malena Waters CRNP [address] [facility] [place] [address] Pending Results Name Type Priority Associated Diagnoses [...] degree AV block 03/04/2024 10:06 AM EDT Scheduled Orders Name Type Priority Associated Diagnoses [...] - Risk 3-dose series) 2002 COVID-19 Vaccine (5 - 2023-24 season) 2023 05/11/2023, 10/23/2022, 10/09/2020, Additional history [...] this encounter Medical Devices Implanted Type Area Leasing Assistant Device Identifier Shelf Expiration Date Model / Serial / Lot Lens Intraoc 17.0 - [id number] - [id number] Implanted:Qty: 1 on 03/03/2017 by Dexter Nazario MD at OR [facility] Left: Eye BAUSCH & LOMB 08/02/2021 [id number] / [id number] / [id number] Lens Intraoc 16.0 - [id number] - [id number] Implanted:Qty: 1 on 03/17/2017 by Dexter Nazario MD at OR [facility] Right: Eye BAUSCH & LOMB 08/02/2021 [id number] / [id number] / [id number] documented as of this encounter Visit Diagnoses [...] and were consensually agreed upon. Care Teams Warehouse Receiving Supervisor Relationship Specialty Start Date End Date Bassem Winters MD [address] [place] [address] [place] [address] PCP - General Family Medicine 10/21/23 documented as of this encounter"
--- OUTSIDE RECORDS SUMMARY | 2024-03-13 20:57 | External Medical Summary | Summary of Care ---
Author Name Unknown Organization [facility] Address [address] [facility] [address] Phone [phone] Care Team Providers Care Mortgage Analyst Name Role Phone Bassem Winters MD Primary Care Provide r Reason for Visit * Reason Onset Date Comments Advice 02/15/2024 Encounter Details Date Type Department Care Team (Late st Contact Info) Description 02/15/2024 Telephone Family Medicine [address] [place] [phone] Bassem Winters MD [address] [place] [address] [place] [phone] Advice Allergies No known active allergiesdocumented as of [...] Nasal Solution (Astelin)Indications :Nasal congestion Administer 1 [place] into nostril in the morning and 1 [place] before bedtime. 30 mL 2 10/21/2023 Active [...] mRNA, LNP-s, No Pre serve, 2-Dose Series (Errund) 10/09/2020,09/18/2020 Covid-19, Mrna, Lnp-s, Pf, B ivalent, [...] encounter Miscellaneous Notes * Telephone Encounter - Makenna Navarrete RN - 02/22/2024 8:28 AM EDT Faxed to [facility] * Telephone Encounter - Makenna Navarrete RN - 02/17/2024 10:[address] Kaminski can you addend your 01/25/24 note to state pt needs a hospital bed with Gel Overlay due to compression fractures of back * Telephone Encounter - Quentin Centeno OSA - 02/15/2024 2:11 PM EDT An order was requested for this patient. Name of Requesting Provider: field worker Delilah Gardner [facility] Order Requested: Hospital Bed needed Diagnosis/Reason for Request: Broken Back If order request is for Mammogram: Is the patient having any breast symptoms? No Is there a chance of ? No Has the patient had any breast problems in the past? No What location AND department does the patient wish to have their order completed at? [facility] in the area Fax Number, if applicable: N/A field worker Delilah Gardner [facility] [phone] If the caller is not a current patient, please advise the patient to call their current PCP to havethe order's prior to being seen in our office. The patient was informed that our providers would not order anything (medication, labs, etc.) prior to being seen. documented in this encounter Plan of Treatment Upcoming Encounters Date Type Department Care Team (Late st Contact Info) Description 02/24/2024 11:45 AM EDT Imaging [facility] 2nd Floor Cardiology, [place] [phone] Gw, Excess Time Radiology 132 [place] [address] 03/04/2024 8:45 AM EDT Office Visit Cardiology, [facility] 132 [facility] [place] [address] Diane Saleh, [address] [place] [address] 03/18/2024 10:00 AM EDT Office Visit Hepatology, [facility] 132 [place] [address] Gertrudis Luna MD [address] [place] [address] 05/02/2024 10:00 AM EDT Office Visit Cardiology, [facility] [address] [address] Dionte Carranza DO [address] [place] [address] 05/05/2024 9:00 AM EDT Office Visit Family [address] [place] [phone] Bassem Winters MD [address] [place] [address] [place] [address] Health Maintenance Due Date Last Done Comments [...] this encounter Medical Devices Implanted Type Area Deputy Clerk Of Court Device Identifier Shelf Expiration Date Model / Serial / Lot Lens Intraoc 17.0 - [id number] - [id number] Implanted:Qty: 1 on 03/03/2017 by Dexter Nazario MD at [facility] Left: Eye BAUSCH & LOMB 08/02/2021 [id number] / [id number] / [id number] Lens Intraoc 16.0 - [id number] - [id number] Implanted:Qty: 1 on 03/17/2017 by Dexter Nazario MD at [facility] Right: Eye BAUSCH & LOMB 08/02/2021 [id number] / [id number] / [id number] documented as of this encounter Visit Diagnoses Diagnosis Compression fracture of L2 vertebra with routine healing, subsequent encounter- Primary Venous stasis dermatitis of both lower extremities documented in this encounter Advance Directives * [...] and were consensually agreed upon. Care Teams Mortgage Analyst Relationship Specialty Start Date End Date Bassem Winters MD [address] [place] [address] [place] [phone] PCP - General Family Medicine 10/21/23 documented as of this encounter
--- OUTSIDE RECORDS SUMMARY | 2024-03-13 20:57 | External Medical Summary | Summary of Care ---
Author Name Unknown Organization [facility] Address [address] [place] [address] Phone [phone] Care Team Providers Care Toe Former Stitchdowns Name Role Phone Bassem Winters MD Primary Care Provide r Reason for Visit * Reason Comments eRx-Medication Refill Encounter Details Date Type Department Care Team (Late st Contact Info) Description 02/11/2024 Refill Family Medicine [address] [place] [phone] Mynor Kaminski MD [address] [place] [address] [place] [phone] Venous stasis dermatitis of both lower extremities; Compression fracture of L2 vertebra with routine [...] Nasal Solution (Astelin)Indicatio ns:Nasal congestion Administer 1 [place] into nostril in the morning and 1 [place] before bedtime. 30 mL 2 10/21/2023 Active [...] Encounter - Bassem Winters MD - 02/12/2024 11:21 AM EDT Signed Prescriptions: Disp Refills Triamcinolone Acetonide 0.5 % External Cre*60 g 5 Sig: APPLY TOPICALLY TO AFFECTED AREA(S) 2 TIMES A DAY Authorizing Provider: BASSEM WINTERS Refused Prescriptions: Disp Refills traMADol HCl 50 MG Oral Tablet (Ultram) 60 Tab*0 Sig: TAKE 2 TABLETS BY MOUTH EVERY 6 HOURS NEEDED FOR PAIN, S EVERE. Refused By: ADA TOM Reason for Refusal: Duplicate Request * [facility] 11[facility]09 AM EDT Pending Prescriptions: Disp Refills Triamcinolone Acetonide 0.5 % External Cre*60 g 5 Sig: APPLY TOPICALLY TO AFFECTED AREA(S) 2 TIMES A DAY Refused Prescriptions: Disp Refills traMADol HCl 50 MG Oral Tablet (Ultram) 60 Tab*0 Sig: TAKE 2 TABLETS BY MOUTH EVERY 6 HOURS NEEDED FOR PAIN, SEVERE. Refused By: ADA TOM Reason fo r Refusal: Duplicate Request * Telephone Encounter - [facility] - 02/12/2024 11:09 AM EDT [facility] is currently not authorized to approve refills for the pended medication(s) per refill protocol. Please approve if appropriate. Pending Prescriptions: Disp Refills Triamcinolone Acetonide 0.5 % External Cr*60 g 5 Sig: APPLY TOPICALLY TO AFFECTED AREA(S) 2 TIMES A DAY Refused Prescriptions: Disp Refills traMADol HCl 50 MG Oral Tablet (Ultram) 60 Tab*0 Sig: TAKE 2 TABLETS BY MOUTH EVERY 6 HOURS NEEDED FOR PAIN, SEVERE. Refused By: ADA TOM Reason for Refusal: Duplicate Request Thank you, Ada Tom RPh Clinical Pharmacist [facility]) 02/12/24 11:09 AM [phone] * Telephone Encounter - Ada Tom RPh - 02/12/2024 11:08 AM EDT Did you pend patient's preferred pharmacy and medication before forwarding?yes Pharmacy: [id number] [id number] [facility] Pending Prescriptions: Disp Refills Triamcinolone Acetonide 0.5 % External Cr*60 g 5 Sig: APPLY TOPICALLY TO AFFECTED AREA(S) 2 TIMES A DAY Last Visit: 01/25/2024 (in office), Visit date not found (telemedicine) Next Visit: 05/05/2024 If no future appointments scheduled, and last appointment is greater than a year ago, please schedule patient for a follow-up appointment Last date the medication was ordered: 10/09/2022 Is this request for a controlled substance?No Urine Drug Screen:No results found for this or any previous visit. Patient Phone Numbers Mobile Labs: Lab Results Component Value Date/Time CREAT 0.8 10/21/2023 12:38 PM CREAT 0.7 03/26/2020 10:50 AM POTASSIUM 4.5 10/21/2023 12:38 PM POTASSIUM 4.3 03/26/2020 10:50 AM LDLCALC 106 10/21/2023 12:38 PM LDLCALC 76 03/18/2011 01:19 PM ALT 36 10/21/2023 12:38 PM ALT 33 03/26/2020 10:50 AM HGBA1C 5.0 09/15/2022 01:19 PM documented in this encounter Plan of Treatment Upcoming Encounters Date Type Department Care Team (Late st Contact Info) Description 02/24/2024 11:45 AM EDT Imaging [facility] 2nd Floor Cardiology, [place] 132 [facility] [place] [phone] Gw, Excess Time Radiology 132 [facility] [place] [address] 03/04/2024 8:45 AM EDT Office Visit Cardiology, [facility] 132 [facility] [place] [address] Diane Saleh, DO [address] [facility] [place] [address] 03/18/2024 10:00 AM EDT Office Visit Hepatology, [facility] 132 [facility] [place] [address] Gertrudis Luna MD [address] [place], [place] [address] [address] 05/02/2024 10:00 AM EDT Office Visit Cardiology, [facility] 132 [facility] [place] [address] Dionte Carranza, DO 132 [facility] [place] [address] 05/05/2024 9:00 AM EDT Office Visit Family Medicine [address] [place] [phone] Bassem Winters MD [address] [place] [address] [place] [address] Health Maintenance Due Date Last Done Comments [...] this encounter Medical Devices Implanted Type Area Health Therapist Device Identifier Shelf Expiration Date Model / Serial / Lot Lens Intraoc 17.0 - [id number] - [id number] Implanted:Qty: 1 on 03/03/2017 by Dexter Nazario MD at OR [facility] Left: Eye BAUSCH & LOMB 08/02/2021 [id number] / [id number] / [id number] Lens Intraoc 16.0 - [id number] - [id number] Implanted:Qty: 1 on 03/17/2017 by Dexter Nazario MD at OR [facility] Right: Eye BAUSCH & LOMB 08/02/2021 [id number] / [id number] / [id number] documented as of this encounter Visit Diagnoses Diagnosis Venous stasis dermatitis of both lower extremities Compression fracture of L2 vertebra with routine [...] and were consensually agreed upon. Care Teams Toe Former Stitchdowns Relationship Specialty Start Date End Date Bassem Winters MD [address] [place] [address] [place] [phone] PCP - General Family Medicine 10/21/23 documented as of this encounter
--- OUTSIDE RECORDS SUMMARY | 2024-03-13 20:57 | External Medical Summary | Summary of Care ---
Author Name Unknown Organization [facility] Address [address] [facility] [place] [address] Phone [phone] Care Team Providers Care Court Assistant Name Role Phone Bassem Winters MD Primary Care Provide r Reason for Referral * Evaluate & Treat - Unlimited Visits (Within 30 days (routine)) - Authorized Specialty Diagnoses / Procedures Referred By Contac t Referred To Contact Pain Management / Pain Medicine Diagnoses Compression fracture of L2 vertebra with routine healing, subsequent encounter Bassem Winters MD [address] [place] [address] [place] [address] Referral ID Status Reason Start Date Expiration Date Visits Requested Visits Authorized [id number] Authorized Specialty Services Required 02/12/[phone] Question Answer Referral Priority Within 30 days (routine) Where should this appointment be scheduled? External Reason for referral? Non Interventional Pain Management What is the preferred location to have this test performed? Non [facility] Site Comments Patient Name: Alphonse Hi [...] pain if not done previously. Fax No. [facility] [phone] or contact front office java developer [phone] Fax No. [facility] [phone] or contact front office java developer [phone] Fax No. [facility] [phone] or contact front office java developer [phone] Reason for Visit * Reason Onset Date Comments Home Health 02/11/2024 Encounter Details Date Type Department Care Team (Late st Contact Info) Description 02/11/2024 Telephone Family Medicine [address] [place] [phone] Bassem Winters MD [address] [place] [address] [place] [address] Home Health Allergies No known active allergiesdocumented as of this encounter (statuses as of 02/15/2024) Medications Medication Sig Dispensed Refills Start Date [...] Nasal Solution (Astelin)Indicatio ns:Nasal congestion Administer 1 [place] into nostril in the morning and 1 [place] before bedtime. 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. They will call pt to schedule. * Telephone Encounter - Yesika Rees OSA - 02/12/2024 3:12 PM EDT Pt returned the call and understands the message from the . * Telephone Encounter - Bassem Winters MD - 02/12/2024 10:49 AM EDT I will supply 2 weeks of tramadol - but 2 tablets max per day - I also referred the pt to pain clinic ---- pls advised the pt to call [facility] [phone] * Telephone Encounter - Aura Vaerla LPN - 02/11/2024 1:04 PM EDT HH Concerns [place], Calling from: Osbaldo Daniels Report/Concerns of: Medication Related and Fall Vitals: [...] asked for nurse Caller was transferred to [facility] at the nurse line. documented in this encounter Plan of Treatment Upcoming Encounters Date Type Department Care Team (Late st Contact Info) Description 02/24/2024 11:45 AM EDT Imaging [facility] 2nd Floor Cardiology, [place] 132 [place] [phone] Gw, Excess Time Radiology 132 [place] [address] 03/04/2024 8:45 AM EDT Office Visit Cardiology, [facility] 132 [place] [address] Diane Saleh DO [address] [place] [address] 03/18/2024 10:00 AM EDT Office Visit Hepatology, [facility] 132 [facility] [place] [address] Gertrudis Luna MD 310 [facility] [place] [address] 05/02/2024 10:00 AM EDT Office Visit Cardiology, [facility] 132 [facility] [place] [address] Dionte Carranza DO 132 [facility] [place] [address] 05/05/2024 9:00 AM EDT Office Visit Family Medicine [address] [place] [address] Bassem Winters MD [address] [place] [address] [place] [address] Scheduled Referrals Name Type Priority Associated Diagnoses [...] this encounter Medical Devices Implanted Type Area Cso Device Identifier Shelf Expiration Date Model / Serial / Lot Lens Intraoc 17.0 - [id number] - [id number] Implanted:Qty: 1 on 03/03/2017 by Dexter Nazario MD at OR [facility] Left: Eye BAUSCH & LOMB 08/02/2021 [id number] / [id number] / [id number] Lens Intraoc 16.0 - [id number] - [id number] Implanted:Qty: 1 on 03/17/2017 by Dexter Nazario MD at OR [facility] Right: Eye BAUSCH & LOMB 08/02/2021 [id number] / [id number] / [id number] documented as of this encounter Visit Diagnoses [...] and were consensually agreed upon. Care Teams Court Assistant Relationship Specialty Start Date End Date Bassem Winters MD [address] [place] [address] [place] [phone] PCP - General Family Medicine 10/21/23 documented as of this encounter
--- OUTSIDE RECORDS SUMMARY | 2024-03-13 20:57 | External Medical Summary ---
Author Name Unknown Address Unknown Organization K0G[facility] [address] [place] [address] Laboratory Report Ordering Provider Test Date Status CHINMAY RIVERA 03/04/2024 10:06:14 Final Observation Date Value Abnormality Reference (Units ) Status BUN 03/04/2024 10:06:14 17 6-20 (mg/dL) Final Creatinine 03/04/2024 10:06:14 0.8 0.6-1.2 (mg/dL) Final Glomerular filtration rate/1.73 sq M.predicted [Volume Rate/Area] in Serum, Plasma or Blood by Creatinine-based formula (CKD-EPI) 03/04/2024 10:06:14 88 >=60 (mL/min) Final eGFR is calculated based on the CKD-EPI 2020 equation. Sodium 03/04/2024 10:06:14 135 135-146 (m mol/L) Final Potassium 03/04/2024 10:06:14 3.6 3.5-5.1 (m mol/L) Final Cl 03/04/2024 10:06:14 97 Below low normal 98- 107 (mmol/L) Final CO2 03/04/2024 10:06:14 25 22-32 (mmo l/L) Final Anion gap 03/04/2024 10:06:14 13 7-15 (mmol /L) Final Glucose 03/04/2024 10:06:14 119 70-120 (mg /dL) Final Calcium 03/04/2024 10:06:14 9.3 8.4-10.2 ( mg/dL) Final Performing Location [facility]ORY [facility] [address] [place] [address]
--- OUTSIDE RECORDS SUMMARY | 2024-03-13 20:57 | External Medical Summary | Summary of Care ---
Author Name Unknown Organization [facility] Address [address] [facility] [place] [address] Phone [phone] Care Team Providers Care Car Hostler Name Role Phone Bassem Winters MD Primary Care Provide r Reason for Referral * Evaluate & Treat - Unlimited Visits (Within 30 days (routine)) - Authorized Specialty Diagnoses / Procedures Referred By Contac t Referred To Contact Pain Management / Pain Medicine Diagnoses Compression fracture of L2 vertebra with routine healing, subsequent encounter Bassem Winters MD [address] [place] [address] [place] [address] Referral ID Status Reason Start Date Expiration Date Visits Requested Visits Authorized [id number] Authorized Specialty Services Required 02/12/2024 999 999 Question Answer Referral Priority Within 30 days (routine) Where should this appointment be scheduled? External Reason for referral? Non Interventional Pain Management What is the preferred location to have this test performed? Non [facility] Site Comments Patient Name: Alphonse Hi Date [...] pain if not done previously. Fax No. [facility] [phone] or contact front of house manager [phone] Fax No. [facility] [phone] or contact front of house manager [phone] Fax No. [facility] [phone] or contact front of house manager [phone] Reason for Visit * Reason Onset Date Comments Home Health 02/11/2024 Encounter Details Date Type Department Care Team (Late st Contact Info) Description 02/11/2024 Telephone Family Medicine [address] [place] [address] Bassem Winters MD [address] [place] [address] [place] [address] Home Health Allergies No [...] Nasal Solution (Astelin)Indications :Nasal congestion Administer 1 [place] into nostril in the morning and 1 [place] before bedtime. 30 mL 2 10/21/2023 Active [...] mRNA, LNP-s, No Pre serve, 2-Dose Series (Cojoin) 10/09/2020,09/18/2020 Covid-19, Mrna, Lnp-s, Pf, B ivalent, 30 Mcg, IM, 12 yrs and above (Cojoin) 10/23/2022 Pneumococcal Conjugate Vacc, 13 Valent (Prevnar) [...] ---- pls advised the pt to call [facility] [phone] * Telephone Encounter - Aura Varela LPN - 02/11/2024 1:04 PM EDT HH Concerns [place], Calling from: Osbaldo Daniels Report/Concerns of: Medication Related and Fall Vitals: T 97.2 P 71 BP 108/62 SP O2 95% RA Narrative: Liseth was with patient at the time of call for HH visit. Patient reported that he had a yall yesterday [facility], he has a small step [...] Info) Description 02/24/2024 11:45 AM EDT Imaging [facility] 2nd Floor Cardiology, [address] [place] [phone] Gw, Excess Time Radiology 132 [facility] [place] [address] 03/04/2024 8:45 AM EDT Office Visit Cardiology, [facility] [place] [address] Diane Saleh, DO [address] [place] [address] [place] [address] 03/18/2024 10:00 AM EDT Office Visit Hepatology, [facility] 132 [facility] [place] [address] Gertrudis Luna MD [address] [place] [address] [place] [address] 05/02/2024 10:00 AM EDT Office Visit Cardiology, [facility] 132 [facility] [place] [address] Dionte Carranza, DO [address] [place] [address] 05/05/2024 9:00 AM EDT Office Visit Family Medicine [address] [place] [phone] Bassem Winters MD [address] [place] [address] [place] [address] Scheduled Referrals Name Type Priority Associated Diagnoses [...] this encounter Medical Devices Implanted Type Area Porter Head Device Identifier Shelf Expiration Date Model / Serial / Lot Lens Intraoc 17.0 - [id number] - [id number] Implanted:Qty: 1 on 03/03/2017 by Dexter Nazario MD at OR [facility] Left: Eye BAUSCH & LOMB 08/02/2021 [id number] / [id number] / [id number] Lens Intraoc 16.0 - [id number] - [id number] Implanted:Qty: 1 on 03/17/2017 by Dexter Nazario MD at [facility] Right: Eye BAUSCH & LOMB 08/02/2021 [id number] / [id number] / [id number] documented as of this encounter Visit Diagnoses [...] and were consensually agreed upon. Care Teams Car Hostler Relationship Specialty Start Date End Date Bassem Winters MD [address] [place] [address] [place] [address] PCP - General Family Medicine 10/21/23 documented as of this encounter
--- OUTSIDE RECORDS SUMMARY | 2024-03-13 20:57 | External Medical Summary | Summary of Care ---
Author Name Unknown Organization [facility] Address [address] [facility] [place] [address] Phone [phone] Care Team Providers Care Equal Opportunity Representative Name Role Phone Bassem Naik MD Primary Care Provide r Reason for Referral * Evaluate & Treat - Unlimited Visits (Within 30 days (routine)) - Authorized Specialty Diagnoses / Procedures Referred By Contac t Referred To Contact Pain Management / Pain Medicine Diagnoses Compression fracture of L2 vertebra with routine healing, subsequent encounter Bassem Naik MD [address] [place] [address] [place] [address] Referral ID Status Reason Start Date Expiration Date Visits Requested Visits Authorized [id number] Authorized Specialty Services Required 02/10/2024 999 999 Question Answer Referral Priority Within 30 days (routine) Where should this appointment be scheduled? External Reason for referral? Non Interventional Pain Management What is the preferred location to have this test performed? Non [facility] Site Comments Patient Name: Alphonse [...] pain if not done previously. Fax No. [facility] [phone] or contact front desk associate [phone] [facility] [phone] or contact front desk associate [phone] Fax No. [facility] [phone] or contact front desk associate [phone] Reason for Visit * Reason Onset Date Comments Advice 02/10/2024 Encounter Details Date Type Department Care Team (Late st Contact Info) Description 02/10/2024 Refill Family Medicine [facility] [address] [place] [phone] Bassem Naik MD [address] [place] [address] [place] [address] Compression fracture of L2 [...] Nasal Solution (Astelin)Indications :Nasal congestion Administer 1 [place] into nostril in the morning and 1 [place] before bedtime. 30 mL 2 10/21/2023 Active [...] mRNA, LNP-s, No Pre serve, 2-Dose Series (Add2paper) 10/09/2020,09/18/2020 Covid-19, Mrna, Lnp-s, Pf, B ivalent, 30 Mcg, IM, 12 yrs and above (Add2paper) 10/23/2022 Pneumococcal Conjugate Vacc, 13 Valent (Prevnar) [...] Telephone Encounter - Diego Browning OSA - 02/12/2024 11:11 AM EDT Per other phone encounter, I faxed the Pain Med referral to [facility]. * Telephone Encounter - Diego Browning OSA - 02/11/2024 10:06 AM EDT I called pt and spoke to . Asked her if pt wanted to go to [facility] for Pain Med. She got very [...] pt [facility] would [facility] documented [facility] this encounter Plan of Treatment Upcoming Encounters Date Type Department Care Team (Late st Contact Info) Description 02/24/2024 11:45 AM EDT Imaging [facility] 2nd Floor Cardiology, [address] [place] [address] Gw, Excess Time Radiology 132 [facility] [place] [address] 03/04/2024 8:45 AM EDT Office Visit Cardiology, [facility] 132 [facility] [place] [address] Diane Saleh DO [address] [place] [address] 03/18/2024 10:00 AM EDT Office Visit Hepatology, [facility] 132 [facility] [place] [address] Gertrudis Luna MD [address] [place] [address] [place] [address] 05/02/2024 10:00 AM EDT Office Visit Cardiology, [facility] 132 [facility] [place] [address] Dionte Carranza, DO 132 [facility] [place] [address] 05/05/2024 9:00 AM EDT Office Visit Family Medicine [address] [place] [address] Bassem Naik MD [address] [place] [address] [place] [address] Scheduled Referrals Name Type Priority Associated Diagnoses [...] this encounter Medical Devices Implanted Type Area Chief Deputy Coroner Device Identifier Shelf Expiration Date Model / Serial / Lot Lens Intraoc 17.0 - [id number] - [id number] Implanted:Qty: 1 on 03/03/2017 by Dexter Nazario MD at OR [facility] Left: Eye BAUSCH & LOMB 08/02/2021 [id number] / [id number] / [id number] Lens Intraoc 16.0 - [id number] - [id number] Implanted:Qty: 1 on 03/17/2017 by Dexter Nazario MD at OR [facility] Right: Eye BAUSCH & LOMB 08/02/2021 [id number] / [id number] / [id number] documented as of this encounter Visit Diagnoses [...] and were consensually agreed upon. Care Teams Equal Opportunity Representative Relationship Specialty Start Date End Date Bassem Naik MD [address] [place] [address] [place] [address] PCP - General Family Medicine 10/21/23 documented as of this encounter
--- OUTSIDE RECORDS SUMMARY | 2024-03-13 20:58 | External Medical Summary | Summary of Care ---
Author Name Unknown Organization [facility] Address [address] [facility] [place] [address] Phone [phone] Care Team Providers Care Clinical Documentation Specialist Name Role Phone Bassem Winters MD Primary Care Provide r Reason for Visit * Reason Onset Date Comments Order Request 02/09/2024 Encounter Details Date Type Department Care Team (Late st Contact Info) Description 02/09/2024 Telephone Family Medicine [address] [place] [phone] Bassem Winters MD [address] [place] [address] [place] [address] Order Request Allergies No known active allergiesdocumented as of this encounter (statuses as of 02/10/2024) Medications Medication Sig Dispensed Refills Start Date [...] Nasal Solution (Astelin)Indications :Nasal congestion Administer 1 [place] into nostril in the morning and 1 [place] before bedtime. 30 mL 2 10/21/2023 Active traMADol HCl 50 MG Oral Tablet (Ultram)Indications: Compression fracture of L2 vertebra with routine healing, subsequent encounter Take 2 Tablets by mouth every 6 hours as needed for Pain, Severe. 60 Tablet 01/25/2024 Active MEDICAL INSTRUCTIONSIndicati ons:NSVT (nonsustained ventricular tachycardia) (HCC),Alcoholic cirrhosis of liver without ascites (HCC),Right bundle branch block,Alcohol use,Venous insufficiency of both lower extremities Use as directed. 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 Name of Requesting Provider: Bouchra from [facility] Order Requested: Remote Patient Monitoring Diagnosis/Reason for Request: recommended by Home Health If order request is for Mammogram: Is the patient having any breast symptoms? Is there a chance of ? Has the patient had any breast problems in the past? What location AND department does the patient wish to have their order completed at? [facility] Fax Number, if applicable: [phone] If the caller is not a current [...] Info) Description 02/24/2024 11:45 AM EDT Imaging [facility] 2nd Floor Cardiology, [place] 132 [facility] [place] [phone] Gw, Excess Time Radiology 132 [facility] [place] [address] 03/04/2024 8:45 AM EDT Office Visit Cardiology, [facility] 132 [facility] [place] [address] Diane Saleh, DO [address] [place] [address] [place] [address] 03/18/2024 10:00 AM EDT Office Visit Hepatology, [facility] 132 [facility] [place] [address] Gertrudis Luna MD [address] [place] [address] [place] [address] 05/02/2024 10:00 AM EDT Office Visit Cardiology, [facility] 132 [facility] [place] [address] Dionte Carranza, DO 132 [facility] [place] [address] 05/05/2024 9:00 AM EDT Office Visit Family Medicine [address] [place] [phone] Bassem Winters MD [address] [place] [address] [place] [address] Health Maintenance Due Date Last Done Comments [...] this encounter Medical Devices Implanted Type Area Bobbin Trucker Device Identifier Shelf Expiration Date Model / Serial / Lot Lens Intraoc 17.0 - [id number] - [id number] Implanted:Qty: 1 on 03/03/2017 by Dexter Nazario MD at OR [facility] Left: Eye BAUSCH & LOMB 08/02/2021 [id number] / [id number] / [id number] Lens Intraoc 16.0 - [id number] - [id number] Implanted:Qty: 1 on 03/17/2017 by Dexter Nazario MD at OR [facility] Right: Eye BAUSCH & LOMB 08/02/2021 [id number] / [id number] / [id number] documented as of this encounter Visit Diagnoses Diagnosis NSVT (nonsustained ventricular tachycardia) (HCC)- Primary Paroxysmal ventricular tachycardia Alcoholic cirrhosis of liver without ascites (HCC) Alcoholic cirrhosis of liver Right bundle branch block Alcohol use Venous insufficiency of both lower extremities documented in this [...] and were consensually agreed upon. Care Teams Clinical Documentation Specialist Relationship Specialty Start Date End Date Bassem Winters MD [address] [place] [address] [place] [id number] PCP - General Family Medicine 10/21/23 documented as of this encounter
--- OUTSIDE RECORDS SUMMARY | 2024-03-13 20:58 | External Medical Summary | Summary of Care ---
Author Name Unknown Organization [facility] Address [address] [facility] [place] [address] Phone [phone] Care Team Providers Care Experimental Mechanic Spacecraft Name Role Phone Bassem Winters MD Primary Care Provide r Reason for Referral * Evaluate & Treat - Unlimited Visits (Within 10 days (routine)) - Authorized Specialty Diagnoses / Procedures Referred By Contac t Referred To Contact HOME CARE / Home Care Diagnoses Gait dyspraxia Alcoholic cirrhosis of liver without ascites (HCC) NSVT (nonsustained ventricular tachycardia) (HCC) Liver mass Compression fracture of L2 vertebra with routine healing, subsequent encounter Bassem Winters MD [address] [place] [address] [place] [address] Referral ID Status Reason Start Date Expiration Date Visits Requested Visits Authorized [id number] Authorized Specialty Services Required 02/08/2024 999 999 Question Answer Referral Priority Within 10 days (routine) Where should this appointment be scheduled? External - [facility] Comments Documentation of Jhpj-ti-Unue Encounter Addendum Patient Name: Alphonse Hi I certify that this patient is under my care and that I, or a nurse practitioner or physician's assistant store manager working with me, had a [id number] encounter that meets the physician siah-vi-chvt encounter requirements with this patient on: 01/25/24 The encounter with the patient was in whole, or in part, for the following medical condition, which is the primary reason for home health care (List medical condition): Gait dysfunction I certify that, based on my findings, the following services are medically necessary home health services: Nursing To provide the following care/treatments: (All hospitalists not following the patient after discharge should complete this section): eval and treat for nursing care, pt already getting PT Further, I certify that my clinical findings support that this patient is homebound (i.e. Absences from home require considerable and taxing effort and are for medical reasons or holiness services or infrequently or of short duration when for other reason) because: Difficult for pt to leave home Physician Signature: Date of Signature: Physician Printed Name:Dr Linda Winters Reason for Visit * Reason Onset Date Comments Order Request 02/03/2024 Encounter Details Date Type Department Care Team (Late st Contact Info) Description 02/03/2024 Telephone Family Medicine [address] [place] [address] Bassem Winters MD [address] [place] [address] [place] [address] Order Request Allergies No known active allergiesdocumented as of this encounter (statuses as of 02/08/2024) Medications Medication Sig Dispensed Refills Start Date [...] Nasal Solution (Astelin)Indications :Nasal congestion Administer 1 [place] into nostril in the morning and 1 [place] before bedtime. 30 mL 2 10/21/2023 Active traMADol HCl 50 MG Oral Tablet (Ultram)Indications: Compression fracture of L2 vertebra with routine healing, subsequent encounter Take 2 Tablets by mouth every 6 hours as needed for Pain, Severe. 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 Pt would like to add home health. For questions call Osbaldo Macon ask for Fiorella [phone] documented in this encounter Plan of Treatment Upcoming Encounters Date Type Department Care Team (Late st Contact Info) Description 02/10/2024 1:30 PM EDT Office Visit Cardiology, [facility] 132 [facility] [place] [address] Brenda Cerrato PA-C [address] [place] [address] 02/24/2024 11:45 AM EDT Imaging [facility] 2nd Floor Cardiology, [address] [place] [phone] Gw, Excess Time Radiology 132 [facility] [place] [address] 03/04/2024 8:45 AM EDT Office Visit Cardiology, [facility] 132 [facility] [place] [address] Diane Saleh DO [address] [place] [address] 03/18/2024 10:00 AM EDT Office Visit Hepatology, [facility] 132 [facility] [place] [address] Gertrudis Luna MD [address] [place] [address] [place] [address] 05/02/2024 10:00 AM EDT Office Visit Cardiology, [facility] 132 [facility] [place] [address] Dionte Carranza, DO 132 [facility] [place] [address] 05/05/2024 9:00 AM EDT Office Visit Family Medicine [address] [place] [phone] Bassem Winters MD [address] [place] [address] [place] [address] Scheduled Referrals Name Type Priority Associated Diagnoses Orde r Schedule HOME HEALTH REFERRAL OP Referral Within 10 days (routine) Gait dyspraxia Alcoholic cirrhosis of liver without ascites (HCC) NSVT (nonsustained ventricular tachycardia) (HCC) Liver mass Compression fracture of L2 vertebra with routine healing, subsequent encounter Ordered: 02/08/2024 Health Maintenance Due Date Last Done Comments [...] this encounter Medical Devices Implanted Type Area Production Machine Tender Device Identifier Shelf Expiration Date Model / Serial / Lot Lens Intraoc 17.0 - [id number] - [id number] Implanted:Qty: 1 on 03/03/2017 by Dexter Nazario MD at OR [facility] Left: Eye BAUSCH & LOMB 08/02/2021 [id number] / [id number] / [id number] Lens Intraoc 16.0 - [id number] - [id number] Implanted:Qty: 1 on 03/17/2017 by Dexter Nazario MD at OR [facility] Right: Eye BAUSCH & LOMB 08/02/2021 [id number] / [id number] / [id number] documented as of this encounter Visit Diagnoses Diagnosis Compression fracture of L2 vertebra with routine healing, subsequent encounter- Primary Gait dyspraxia Lack of coordination Alcoholic cirrhosis of liver without ascites (HCC) Alcoholic cirrhosis of liver NSVT (nonsustained ventricular tachycardia) (HCC) Paroxysmal ventricular tachycardia Liver mass Unspecified disorder of liver documented in this encounter Advance Directives * [...] and were consensually agreed upon. Care Teams Experimental Mechanic Spacecraft Relationship Specialty Start Date End Date Bassem Winters MD [address] [place] [address] [place] [address] PCP - General Family Medicine 10/21/23 documented as of this encounter
--- OUTSIDE RECORDS SUMMARY | 2024-03-13 20:58 | External Medical Summary | Summary of Care ---
Author Name Unknown Organization [facility] Address [address] [place] [facility] [place] [address] Phone [phone] Care Team Providers Care Log Grader Name Role Phone Bassem Winters MD Primary Care Provide r Encounter Details Date Type Department Care Team (Late st Contact Info) Description 01/20/2024 Result Scan Unspecified Department <No scans attached> Allergies No known active allergiesdocumented as of this encounter (statuses as of 01/26/2024) Medications Medication Sig Dispensed Refills Start Date [...] Nasal Solution (Astelin)Indications :Nasal congestion Administer 1 [place] into nostril in the morning and 1 [place] before bedtime. 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 Overview: ICD-9 Code Update ICD-10 update of inactive term documented as of this encounter (statuses as of 01/26/2024) Immunizations Name Administration Dates Next Due COVID-19 mRNA, LNP-s, No Pre serve, 2-Dose Series ([employer]) 10/09/2020,09/18/2020 Covid-19, Mrna, Lnp-s, Pf, B ivalent, [...] Info) Description 02/24/2024 11:45 AM EDT Imaging [facility] 2nd Floor Cardiology, [place] [address] [facility] [place] [address] Gw, Excess Time Radiology [address] [facility] [place] [address] 03/04/2024 8:45 AM EDT Office Visit Cardiology, [facility] [address] [facility] [place] [address] Diane Saleh, DO [address] [place] [address] 03/18/2024 10:00 AM EDT Office Visit Hepatology, [facility] [address] [facility] [place] [address] Gertrudis Luna MD [address] [place] [address] [place] [address] 05/02/2024 10:00 AM EDT Office Visit Cardiology, [facility] [address] [facility] [place] [address] Dionte Carranza, DO [address] [facility] [place] [address] 05/05/2024 9:00 AM EDT Office Visit Family Medicine [address] [place] [phone] Bassem Winters MD [address] [place] [address] [place] [address] Health Maintenance Due Date Last Done Comments Hepatitis B (1 of 3 - Risk 3-dose series) 2002 COVID-19 Vaccine (2022- season) 2023 05/11/2023, 10/23/2022, 10/09/2020, Additional history exists Depression Screening 10/20/2024 10/21/2023 DTaP,Tdap,and Td Vaccines (3 - Td or Tdap) 09/15/2029 09/15/2019, 04/14/2014 Pneumococcal Vaccine: 65+ Years Completed 03/24/2019, 05/09/2010 Zoster Vaccines Completed 01/31/2020, 08/24/2019 Influenza Vaccine (FLU shot) Completed , 06/03/2018, 06/18/2017, Additional history exists GARDASIL-HPV IMMUNIZATION SERIES Aged Out No longer eligible based on patient's age to complete this topic MENINGOCOCCAL (MENACTRA/MENVEO) Aged Out No longer eligible based on patient's age to complete this topic documented as of this encounter Medical Devices Implanted Type Area Corn Husker Machine Operator Device Identifier Shelf Expiration Date Model / Serial / Lot Lens Intraoc 17.0 - [id number] - [id number] Implanted:Qty: 1 on 03/03/2017 by Dexter Nazario MD at OR [facility] Left: Eye BAUSCH [employer] LOMB 08/02/2021 [id number] / [id number] / [id number] Lens Intraoc 16.0 - [id number] - [id number] Implanted:Qty: 1 on 03/17/2017 by Dexter Nazario MD at OR [facility] Right: Eye BAUSCH & LOMB 08/02/2021 [id number] / [id number] / [id number] documented as of this encounter Procedures Procedure Name Priority Date/Time Associated Diagnosis Comments RADIOLOGY SCANNED RESULT 01/20/2024 RADIOLOGY SCANNED RESULT 01/20/2024 RADIOLOGY SCANNED RESULT 01/20/2024 documented in this encounter Results * RADIOLOGY SCANNED RESULT (01/20/2024) 01/20/2024 No Physician Data Unknown DIAGNOSTIC RAD IOLOGY SERVICES * RADIOLOGY SCANNED RESULT (01/20/2024) 01/20/2024 No Physician Data Unknown DIAGNOSTIC RAD IOLOGY SERVICES * RADIOLOGY SCANNED RESULT (01/20/2024) 01/20/2024 No Physician Data Unknown DIAGNOSTIC RAD IOLOGY SERVICES documented in this encounter Advance Directives * [...] and were consensually agreed upon. Care Teams Log Grader Relationship Specialty Start Date End Date Bassem Winters MD [address] [place] [address] [place] [address] PCP - General Family Medicine 10/21/23 documented as of this encounter
--- OUTSIDE RECORDS SUMMARY | 2024-03-13 20:58 | External Medical Summary | Summary of Care ---
Author Name Unknown Organization [facility] Address [address] [place] [facility] [place] [address] Phone [phone] Care Team Providers Care Medical Management Specialist Name Role Phone Bassem Winters MD Primary Care Provide r Reason for Visit * Reason Onset Date Comments Order Request 02/09/2024 Encounter Details Date Type Department Care Team (Late st Contact Info) Description 02/09/2024 Telephone Family Medicine [address] [place] [phone] Bassem Winters MD [address] [place] [address] [place] [address] Order Request Allergies No known active allergiesdocumented [...] Nasal Solution (Astelin)Indications :Nasal congestion Administer 1 [place] into nostril in the morning and 1 [place] before bedtime. 30 mL 2 10/21/2023 Active [...] mRNA, LNP-s, No Pre serve, 2-Dose Series ([employer]) 10/09/2020,09/18/2020 Covid-19, Mrna, Lnp-s, Pf, B ivalent, [...] Encounter - Makenna Navarrete RN - 02/10/2024 3:18 PM EDT faxed * Telephone Encounter - Linda Antonio OSA - 02/09/2024 10:55 AM EDT An order was requested for this patient. Name of Requesting Provider: Bouchra wayne [facility] Order Requested: Remote Patient Monitoring Diagnosis/Reason for Request: recommended by Home Health If order request is for Mammogram: Is the patient having any breast symptoms? Is there a chance of ? Has the patient had any breast problems in the past? What location AND department does the patient wish to have their order completed at? [facility] Fax Number, if applicable: [phone] If the caller is not a current [...] Info) Description 02/24/2024 11:[address] [facility] 2nd Floor Cardiology, [place] [address] [place] [phone] Gw, Excess Time Radiology [address] [place] [address] 03/04/2024 8:45 AM EDT Office Visit Cardiology, [facility] [address] [place] [address] Diane Saleh, [address] [place] [address] 03/18/2024 10:00 AM EDT Office Visit Hepatology, [facility] [address] [place] [address] Gertrudis Luna MD [address] [place] [address] [place] [address] 05/02/2024 10:00 AM EDT Office Visit Cardiology, [facility] [address] [place] [address] Dionte Carranza, DO 132 [place] [address] 05/05/2024 9:00 AM EDT Office Visit Family Medicine [place] [place] [phone] Bassem Winters MD [address] [place] [address] [place] [address] Health Maintenance Due Date Last Done Comments [...] this encounter Medical Devices Implanted Type Area Spa Manager Device Identifier Shelf Expiration Date Model / Serial / Lot Lens Intraoc 17.0 - [id number] - [id number] Implanted:Qty: 1 on 03/03/2017 by Dexter Nazario MD at OR [facility] Left: Eye BAUSCH [employer] LOMB 08/02/2021 [id number] / [id number] / [id number] Lens Intraoc 16.0 - [id number] - [id number] Implanted:Qty: 1 on 03/17/2017 by Dexter Nazario MD at OR [facility] Right: Eye BAUSCH [employer] LOMB 08/02/2021 [id number] / [id number] / [id number] documented as of this encounter Visit Diagnoses [...] and were consensually agreed upon. Care Teams Medical Management Specialist Relationship Specialty Start Date End Date Bassem Winters MD [address] [place] [address] [place] [phone] PCP - General Family Medicine 10/21/23 documented as of this encounter
--- OUTSIDE RECORDS SUMMARY | 2024-03-13 20:58 | External Medical Summary | Summary of Care ---
Author Name Unknown Organization [facility] Address [address] [facility] [place] [address] Phone [phone] Care Team Providers Care Vice President Business & Corporate Development Name Role Phone Bassem Winters MD Primary Care Provide r Reason for Referral * Evaluate & Treat - Unlimited Visits (Within 30 days (routine)) - Authorized Specialty Diagnoses / Procedures Referred By Contac t Referred To Contact Pain Management / Pain Medicine Diagnoses Compression fracture of L2 vertebra with routine healing, subsequent encounter Bassem Winters MD [address] [place] [address] [place] [address] Referral ID Status Reason Start Date Expiration Date Visits Requested Visits Authorized [id number] Authorized Specialty Services Required 02/10/2024 999 999 Question Answer Referral Priority Within 30 days (routine) Where should this appointment be scheduled? External Reason for referral? Non Interventional Pain Management What is the preferred location to have this test performed? Non [facility] Site Comments Patient Name: Alphonse [...] pain if not done previously. Fax No. [facility] [phone] or contact assistant front end manager [phone] Fax No. [facility] [phone] or contact assistant front end manager [phone] Fax No. [facility] [phone] or contact assistant front end manager [phone] Reason for Visit * Reason Onset Date Comments Advice 02/10/2024 Encounter Details Date Type Department Care Team (Late st Contact Info) Description 02/10/2024 Refill Family Medicine [facility] [address] [place] [phone] Bassem Winters MD [address] [place] [address] [place] [address] Compression fracture of L2 [...] Nasal Solution (Astelin)Indications :Nasal congestion Administer 1 [place] into nostril in the morning and 1 [place] before bedtime. 30 mL 2 10/21/2023 Active [...] mRNA, LNP-s, No Pre serve, 2-Dose Series ([employer]) 10/09/2020,09/18/2020 Covid-19, Mrna, Lnp-s, Pf, B ivalent, 30 Mcg, IM, 12 yrs and above ([employer]) 10/23/2022 Pneumococcal Conjugate Vacc, 13 Valent (Prevnar) [...] Telephone Encounter - Bassem Winters MD - 02/10/2024 3:42 PM EDT Referral signed * Telephone Encounter - Makenna Navarrete RN - 02/10/2024 3:16 PM EDT Pt has compression fractures in back from a fall, seen 01/25/[address] Kaminski. Do you want us to offer pain management for him? * Telephone Encounter - Bassem Winters MD - 02/10/2024 2:56 PM EDT Pls inform the pt that I do not prescribe chronic use of tramadol * Telephone Encounter - Bassem Winters MD - 02/10/2024 2:56 PM EDT Refused Prescriptions: Disp Refills traMADol HCl 50 MG Oral Tablet (Ultram) 60 Tab*0 Sig: Take 2 Tablets by mouth every 6 hours as needed for Pain, Severe. Refused By: BASSEM WINTERS Reason for Refusal: Other (comment below) * Telephone Encounter - Cat Mcgrath CMA - 02/10/2024 2:11 PM EDT Pt requested refill from cardiology. Told pt I would send for pcp approval. [facility] documented in this encounter Plan of Treatment Upcoming Encounters Date Type Department Care Team (Late st Contact Info) Description 02/24/2024 11:45 AM EDT Imaging [facility] 2nd Floor Cardiology, [place] 132 [facility] [place] [phone] Gw, Excess Time Radiology 132 [facility] [place] [address] 03/04/2024 8:45 AM EDT [facility] [address] [facility] [place] [address] Diane Saleh, [address] [place] [address] 03/18/2024 10:00 AM EDT Office Visit Hepatology, [facility] [address] [facility] [place] [address] Gertrudis Luna MD [address] [place] [address] [place] [address] 05/02/2024 10:00 AM EDT Office Visit Cardiology, [facility] [address] [place] [address] Dionte Carranza, [address] [place] [address] 05/05/2024 9:00 AM EDT Office Visit Family Medicine [address] [place] [phone] Bassem Winters MD [address] [place] [address] [place] [address] Scheduled Referrals Name Type Priority Associated Diagnoses [...] encounter Medical Devices Implanted Type Area Vp Foundation Device Identifier Shelf Expiration Date Model / Serial / Lot Lens Intraoc 17.0 - [id number] - [id number] Implanted:Qty: 1 on 03/03/2017 by Dexter Nazario MD at OR [facility] Left: Eye BAUSCH [employer] LOMB 08/02/2021 [id number] / [id number] / [id number] Lens Intraoc 16.0 - [id number] - [id number] Implanted:Qty: 1 on 03/17/2017 by Dexter Nazario MD at [facility] Right: Eye BAUSCH & LOMB 08/02/2021 [id number] / [id number] / [id number] documented as of this encounter Visit Diagnoses [...] and were consensually agreed upon. Care Teams Vice President Business & Corporate Development Relationship Specialty Start Date End Date Bassem Winters MD [address] [place] [address] [place] [address] PCP - General Family Medicine 10/21/23 documented as of this encounter
--- OUTSIDE RECORDS SUMMARY | 2024-03-13 20:58 | External Medical Summary | Summary of Care ---
Author Name Unknown Organization [facility] Address [address] [place] [facility] [facility] [place] [address] Phone [phone] Care Team Providers Care Adoption Manager Name Role Phone Bassem Winters MD Primary Care Provide r Reason for Visit * Reason Onset Date Comments Advice 01/22/2024 No Appts Encounter Details Date Type Department Care Team (Late st Contact Info) Description 01/22/2024 Telephone Family Medicine [address] [place] [phone] Bassem Winters MD [address] [place] [address] [place] [address] Advice (No Appts) Allergies No known active allergiesdocumented as of this encounter (statuses as of 01/22/2024) Medications Medication Sig Dispensed Refills Start Date [...] Nasal Solution (Astelin)Indications :Nasal congestion Administer 1 [place] into nostril in the morning and 1 [place] before bedtime. 30 mL 2 10/21/2023 Active documented as of this encounter (statuses as of 01/22/2024) Active Problems Problem Noted Date Diagnosed Date Liver mass 10/21/2023 Alcoholic cirrhosis of liver without ascites Alcohol use 10/21/[address] 09/16/2022 Venous insufficiency of both lower extremities 0 03/12/2018 Gouty arthropathy 05/17/2009 Overview: ICD-9 Code Update ADVANCE DIRECTIVE INFORMATION 05/23/2005 Overview: No, Advance Directive brochure given to patient at prior appointment. documented as of this encounter (statuses as of 01/22/2024) Resolved Problems Problem Noted Date Diagnosed Date Resolved Date Gouty arthropathy 05/30/2004 05/17/2009 Overview: ICD-9 Code Update ICD-10 update of inactive term documented as of this encounter (statuses as of 01/22/2024) Immunizations Name Administration Dates Next Due COVID-19 mRNA, LNP-s, No Pre serve, 2-Dose Series ([employer]) 10/09/2020,09/18/2020 Covid-19, Mrna, Lnp-s, Pf, B ivalent, [...] encounter Miscellaneous Notes * Telephone Encounter - Sandra Hurt LPN - 01/22/2024 2:45 PM EDT Has Apt 01/25/24 with for Hospital Follow up * Telephone Encounter - Pema Browning OSA - 01/22/2024 11:45 AM EDT No Appointments Available Patient declined appointments?: Yes What Visit Type is needed? Hospital Discharge If Acute Visit Type is needed, were surrounding clinics offered to patient (Yes/No)? N/A Was patient offered appointments with other available providers (Yes/No)? No, explain No appts aviavlbe See Call Details? (Yes or No): Yes documented in this encounter Plan of Treatment Upcoming Encounters Date Type Department Care Team (Late st Contact Info) Description 01/25/2024 7:40 AM EDT Office Visit Family Medicine [address] [place] [phone] Mynor Kaminski MD [address] [place] [address] [place] [address] 02/24/2024 11:45 AM EDT Imaging [facility] 2nd Floor Cardiology, [place] [address] [facility] [place] [address] Gw, Excess Time Radiology 132 [facility] [place] [address] 03/04/2024 8:45 AM EDT Office Visit Cardiology, [facility] [address] [facility] [place] [address] Diane Saleh, DO [address] [place] [address] 03/18/2024 10:00 AM EDT Office Visit Hepatology, [facility] [address] [facility] [place] [address] Gertrudis Luna MD [address] [place] [address] [place] [address] 05/02/2024 10:00 AM EDT Office Visit Cardiology, [facility] [address] [facility] [place] [address] Dionte Craranza, DO 132 [facility] [place] [address] 05/05/2024 9:00 AM EDT Office Visit [address] Medicine [address] [phone] Bassem Winters MD [address] [place] [address] [place] [address] Health Maintenance Due Date Last Done Comments [...] this encounter Medical Devices Implanted Type Area Household Worker Device Identifier Shelf Expiration Date Model / Serial / Lot Lens Intraoc 17.0 - [id number] - [id number] Implanted:Qty: 1 on 03/03/2017 by Dexter Nazario MD at OR [facility] Left: Eye BAUSCH [employer] LOMB 08/02/2021 [id number] / [id number] / [id number] Lens Intraoc 16.0 - [id number] - [id number] Implanted:Qty: 1 on 03/17/2017 by Dexter Nazario MD at OR [facility] Right: Eye BAUSCH [employer] LOMB 08/02/2021 [id number] / [id number] / [id number] documented as of this encounter Advance Directives [...] and were consensually agreed upon. Care Teams Adoption Manager Relationship Specialty Start Date End Date Bassem Winters MD [address] [place] [address] [place] [phone] PCP - General Family Medicine 10/21/23 documented as of this encounter
--- OUTSIDE RECORDS SUMMARY | 2024-03-13 20:58 | External Medical Summary | Summary of Care ---
Author Name Unknown Organization [facility] Address [address] [facility] [place] [address] Phone [phone] Care Team Providers Care Drafter Civil Name Role Phone Bassem Winters MD Primary Care Provide r Reason for Visit * Reason Onset Date Comments Referral 02/02/2024 Fax 02/02/2024 Encounter Details Date Type Department Care Team (Late st Contact Info) Description 02/02/2024 Telephone Family Medicine [address] [place] [phone] Bassem Winters MD [address] [place] [address] [place] [address] Referral; Fax Allergies No known active allergiesdocumented as of this encounter (statuses as of 02/03/2024) Medications Medication Sig Dispensed Refills Start Date [...] Nasal Solution (Astelin)Indications :Nasal congestion Administer 1 [place] into nostril in the morning and 1 [place] before bedtime. 30 mL 2 10/21/2023 Active traMADol HCl 50 MG Oral Tablet (Ultram)Indications: Compression fracture of L2 vertebra with routine healing, subsequent encounter Take 2 Tablets by mouth every 6 hours as needed for Pain, Severe. 60 Tablet 01/25/2024 Active documented as of this encounter (statuses as of 02/03/2024) Active Problems Problem Noted Date Diagnosed Date [...] as of this encounter (statuses as of 02/03/2024) Resolved Problems Problem Noted Date Diagnosed Date Resolved Date Gouty arthropathy 05/30/2004 05/17/2009 Overview: ICD-9 Code Update ICD-10 update of inactive term documented as of this encounter (statuses as of 02/03/2024) Immunizations Name Administration Dates Next Due COVID-19 mRNA, LNP-s, No Pre serve, 2-Dose Series ([employer]) 10/09/2020,09/18/2020 Covid-19, Mrna, Lnp-s, Pf, B ivalent, [...] Telephone Encounter - Makenna Navarrete RN - 02/03/2024 1:27 PM EDT Ref was done on 01-25-24, will fax again * Telephone Encounter - Salina Rosen OSA - 02/03/2024 1:16 PM EDT Caller requesting the following information to be faxed: Name/Company of caller: [employer] pt Information requested to be faxed: home health referral [phone] Fax number: [phone] Attention to Name/Company: [employer] Any additional information?: N/A * Telephone Encounter - Motnserrat Hilton CPhT - 02/03/2024 1:07 PM EDT Pt's calling in regarding a referral for home health, transferred pt's to office. Thank you, Montserrat Hilton Destination Coordinator [facility] 02/03/2024, 1:08 PM * Telephone Encounter - Evaristo Granado OSA - 02/02/2024 10:28 AM EDT Pt spouse called in stating that [employer] has not received the home health referral requestedand if it could be sent. They could be reached at [phone] documented in this encounter Plan of Treatment Upcoming Encounters Date Type Department Care Team (Late st Contact Info) Description 02/24/2024 11:45 AM EDT Imaging [facility] 2nd Floor Cardiology, [address] [place] [phone] Gw, Excess Time Radiology 132 [facility] [place] [address] 03/04/2024 8:45 AM EDT Office Visit Cardiology, [address] [place] [address] Diane Saleh, [address] [place] [address] 03/18/2024 10:00 AM EDT Office Visit Hepatology, [facility] 132 [facility] [place] [address] Gertrudis Luna MD [address] [place] [address] [place] [address] 05/02/2024 10:00 AM EDT Office Visit Cardiology, [address] [place] [address] Dionte Carranza, [address] [place] [address] 05/05/2024 9:00 AM EDT Office Visit Family [address] [place] [phone] Bassem Winters MD [address] [place] [address] [place] [address] Health Maintenance Due Date Last Done Comments [...] this encounter Medical Devices Implanted Type Area Cartridge Assembler Device Identifier Shelf Expiration Date Model / Serial / Lot Lens Intraoc 17.0 - [id number] - [id number] Implanted:Qty: 1 on 03/03/2017 by Dexter Nazario MD at OR [facility] Left: Eye BAUSCH & LOMB 08/02/2021 [id number] / [id number] / [id number] Lens Intraoc 16.0 - [id number] - [id number] Implanted:Qty: 1 on 03/17/2017 by Dexter Nazario MD at OR [facility] Right: Eye BAUSCH & LOMB 08/02/2021 [id number] / [id number] / [id number] documented as of this encounter Advance Directives [...] and were consensually agreed upon. Care Teams Drafter Civil Relationship Specialty Start Date End Date Bassem Winters MD [address] [place] [address] [place] [address] PCP - General Family Medicine 10/21/23 documented as of this encounter
--- OUTSIDE RECORDS SUMMARY | 2024-03-13 20:58 | External Medical Summary | Summary of Care ---
Author Name Unknown Organization [facility] Address [address] [place] [address] Phone [phone] Care Team Providers Care Stem Processing Machine Operator Name Role Phone Bassem Winters MD Primary Care Provide r Reason for Referral * Medication Prior Authorization - Pending Review Specialty Diagnoses / Procedures Referred By Contac t Referred To Contact Diagnoses Compression fracture of L2 vertebra with routine healing, subsequent encounter Mynor Kaminski MD [address] [place] [address] [place] [id number] Referral ID Status Reason Start Date Expiration Date V isits Requested Visits Authorized [id number] Pending Review 999 999 * Evaluate & Treat - Unlimited Visits (Within 3 days (urgent)) - Authorized Specialty Diagnoses / Procedures Referred By Contac t Referred To Contact HOME CARE / Home Care Diagnoses Compression fracture of L2 vertebra with routine healing, subsequent encounter Mynor Kaminski MD [address] [place] [address] [place] [address] Referral ID Status Reason Start Date Expiration Date Visits Requested Visits Authorized [id number] Authorized Specialty Services Required 01/25/2024 999 999 Question Answer Referral Priority Within 3 days (urgent) Where should this appointment be scheduled? Makenna Wang Documentation of Izsb-nh-Xgfk Encounter Addendum Patient Name: Alphonse Hi I certify that this patient is under my care and that I, or a nurse practitioner or physician's billing assistant working with me, had a dcwt-wq-ocij encounter that meets the physician kzit-ne-pnan encounter requirements with this patient on: 01/25/2024 [...] effort and are for medical reasons or baptism services or infrequently or of short duration when for other reason) because: Pain, weakness Physician Signature: Date of Signature: Physician Printed Name: Mynor Kaminski MD Reason for Visit * Reason Comments Hospital Follow-Up Encounter Details Date Type Department Care Team (Late st Contact Info) Description 01/25/2024 7:40 AM EDT Office Visit Family Medicine [address] [place] [address] Mynor Kaminski MD [address] [place] [address] [place] [address] Compression fracture of L2 vertebra with routine healing, subsequent encounter*; Alcoholic cirrhosis of liver without ascites (HCC); NSVT (nonsustained ventricular tachycardia) (HCC); Right bundle branch block Allergies No known active allergiesdocumented as of this encounter (statuses as of 01/25/2024) Medications Medication Sig Dispensed Refills Start Date End Date Status CENTRUM SILVER PO TABS One tablet daily Active Triamcinolone Acetonide 0.5 % External Cream (Aristocort)Indicat ions:Venous stasis dermatitis of both lower extremities APPLY TOPICALLY TO AFFECTED AREA(S) 2 TIMES A DAY 60 g 5 10/09/2022 Active Spironolactone 25 MG Oral Tablet (Aldactone)Indicati ons:Venous insufficiency of both lower extremities TAKE 1 TABLET BY MOUTH EVERY DAY IN THE MORNING 90 Tablet 09/22/2023 Active Furosemide 40 MG Oral Tablet (Lasix)Indications: Venous insufficiency of both lower extremities TAKE 1-2 [...] Active Azelastine HCl 0.1 % Nasal Solution (Astelin)Indication s:Nasal congestion Administer 1 [place] into nostril in the morning and 1 [place] before bedtime. 30 mL 2 10/21/2023 Active oxyCODONE HCl 5 MG Oral Tablet (Oxy IR)Indications:Comp ression fracture of L2 vertebra with routine healing, subsequent encounter Take 1 Tablet by mouth every 4 hours as needed for Pain, Severe. 30 Tablet 01/25/2024 Active traMADol HCl 50 MG Oral Tablet (Ultram)Indications :Compression fracture of L2 vertebra with routine healing, subsequent encounter Take 1 Tablet by mouth every 6 hours as needed for Pain, Moderate. 01/25/2024 Discontinue d(Medicatio n/Dose Changed) documented as of this encounter (statuses as of 01/25/2024) Active Problems Problem Noted Date Diagnosed Date [...] as of this encounter (statuses as of 01/25/2024) Resolved Problems Problem Noted Date Diagnosed Date Resolved Date Gouty arthropathy 05/30/2004 05/17/2009 Overview: ICD-9 Code Update ICD-10 update of inactive term documented as of this encounter (statuses as of 01/25/2024) Immunizations Name Administration Dates Next Due COVID-19 [...] in this encounter Progress Notes * Mynor Kaminski MD - 01/25/2024 7:35 AM EDT Alphonse [...] or diarrhea. He has some incontinence anyway. He has pain from other injuriesthrough the years. Patient Active Problem List Diagnosis [...] performed by Dexter Nazario MD at OR [facility] REMOVE CATARACT, INSERT LENS PROSTH Right 03/17/2017 right EXTRACAPSULAR CATARACT REMOVAL WITH INTRAOCULAR LENS performed by Dexter Nazario MD at OR [facility] VAS DUPLEX VENOUS LE UNILAT Right [...] 0.1 % Nasal Solution (Astelin) Administer 1 [place] into nostril in the morning and 1 [place] before bedtime. 30 mL 2 No current facility-administered medications for this visit. Immunization History Administered Date(s) Administered COVID-19 mRNA, LNP-s, No Preserve, 2-Dose Series ([employer]) 09/18/2020, 10/09/2020 Covid-19, Mrna, Lnp-s, Pf, Bivalent, [...] encounter (Primary) - DURABLE MEDICAL EQUIPMENT - [facility] - oxyCODONE HCl 5 MG Oral Tablet (Oxy IR); Take 1 Tablet by mouth every 4 hours as needed for Pain, Severe. Alcoholic cirrhosis of liver without ascites (HCC) NSVT (nonsustained ventricular tachycardia) (HCC) Right bundle branch block Follow Up: Return if symptoms worsen or fail to improve. documented in this encounter Nursing Notes * Makenna Navarrete RN - 01/25/2024 7:35 AM EDT Pt was in [facility] ER 01/20/24 pt fell in early January and cut his legs, he was having pain in the legs sothey went to ER because he could not walk well. They gave him Tramadol , xrays were ok documented in this encounter Plan of Treatment Upcoming Encounters Date Type Department Care Team (Late st Contact Info) Description 02/24/2024 11:45 AM EDT Imaging [facility] 2nd Floor Cardiology, [place] 132 [facility] [place] [address] Gw, Excess Time Radiology 132 [facility] [place] [address] 03/04/2024 8:45 AM EDT Office Visit Cardiology, [facility] 132 [facility] [place] [address] Diane Saleh, DO [address] [place] [address] 03/18/2024 10:00 AM EDT Office Visit Hepatology, [facility] 132 [facility] [place] [address] Gerturdis Luna MD [address] [place] [address] [place] [address] 05/02/2024 10:00 AM EDT Office Visit Cardiology, [facility] 132 [facility] [place] [address] Dionte Carranza, DO 132 [facility] [place] [address] 05/05/2024 9:00 AM EDT Office Visit Family Medicine [address] [place] [phone] Bassem Winters MD [address] [place] [address] [place] [address] Scheduled Referrals Name Type Priority Associated Diagnoses [...] this encounter Medical Devices Implanted Type Area Clinical Veterinarian Device Identifier Shelf Expiration Date Model / Serial / Lot Lens Intraoc 17.0 - [id number] - [id number] Implanted:Qty: 1 on 03/03/2017 by Dexter Nazario MD at OR [facility] Left: Eye [employer]USCH [employer] LOMB 08/02/2021 [id number] / [id number] / [id number] Lens Intraoc 16.0 - [id number] - [id number] Implanted:Qty: 1 on 03/17/2017 by Dexter Nazario MD at [facility] Right: Eye BAUSCH [employer] LOMB 08/02/2021 [id number] / [id number] / [id number] documented as of this encounter Visit Diagnoses [...] and were consensually agreed upon. Care Teams Stem Processing Machine Operator Relationship Specialty Start Date End Date Bassem Winters MD [address] [place] [address] [place] [phone] PCP - General Family Medicine 10/21/23 documented as of this encounter
--- OUTSIDE RECORDS SUMMARY | 2024-03-13 20:58 | External Medical Summary | Summary of Care ---
Author Name Unknown Organization [facility] Address [address] [place] [address] Phone [phone] Care Team Providers Care Propulsion Machinery Service Engineer Name Role Phone Bassem Winters MD Primary Care Provide r Reason for Visit * Reason Onset Date Comments Home Health 02/05/2024 Encounter Details Date Type Department Care Team (Late st Contact Info) Description 02/05/2024 Telephone Family Medicine [address] [place] [address] Bassem Winters MD [address] [place] [address] [place] [phone] Home Health Allergies No known active allergiesdocumented as of this encounter (statuses as of 02/05/2024) Medications Medication Sig Dispensed Refills Start Date [...] Nasal Solution (Astelin)Indications :Nasal congestion Administer 1 [place] into nostril in the morning and 1 [place] before bedtime. 30 mL 2 10/21/2023 Active traMADol HCl 50 MG Oral Tablet (Ultram)Indications: Compression fracture of L2 vertebra with routine healing, subsequent encounter Take 2 Tablets by mouth every 6 hours as needed for Pain, Severe. 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 Overview: ICD-9 Code Update ICD-10 update of inactive term documented as of this encounter (statuses as of 02/05/2024) Immunizations Name Administration Dates Next Due COVID-19 mRNA, LNP-s, No Pre serve, 2-Dose Series ([employer]) 10/09/2020,09/18/2020 Covid-19, Mrna, Lnp-s, Pf, B ivalent, [...] encounter Miscellaneous Notes * Telephone Encounter - Shaila ColeSHEILA - 02/05/2024 2:17 PM EDT Admission/Start of Care Admission/Start of Care: oRbyn BOYLE, Calling from: [facility] Referral ordered by: Long Term and PT Referral received for: Long Term and PT Start of care completed on: 02/05/24 Report/Concerns of: Adding on additional orders Symptoms: See below Vitals: T 97.3 P 52 RR 20 - 24 with exertion BP 130/70 SP O2 97% R/A Lung sounds - Clear Weight - 224 lbs, will start monitoring daily with RPM program Blood sugar - N/A Narrative: Robyn saw patient to day for start of care. She is going to add on OT, Home Health Aide and Automobile Locator for patient. She will also add an order for RPM (remote patient monitoring program). She reports that patient is dyspneic with activity Next Nursing visit(s) on Thursday They will call with any updates or additional concerns from the upcoming HH visit. Last Office Visit: 01/25/2024 Advised that orders will be signed by Dr. Winters and to fax to the office for signature. Call back Robyn with advice or orders Please fax orders to [facility] documented in this encounter Plan of Treatment Upcoming Encounters Date Type Department Care Team (Late st Contact Info) Description 02/10/2024 1:30 PM EDT Office Visit Cardiology, [facility] 132 [facility] [place] [address] Brenda Cerrato PA-C [address] [place] [address] 02/24/2024 11:45 AM EDT Imaging [facility] 2nd Floor Cardiology, [address] [place] [phone] Gw, Excess Time Radiology 132 [facility] [place] [address] 03/04/2024 8:45 AM EDT Office Visit Cardiology, [facility] 132 [facility] [place] [address] Diane Saleh DO [address] [place] [address] [place] [address] 03/18/2024 10:00 AM EDT Office Visit Hepatology, [facility] 132 [facility] [place] [address] Gertrudis Luna MD [address] [place] [address] [place] [address] 05/02/2024 10:00 AM EDT Office Visit Cardiology, [facility] 132 [facility] [place] [address] Dionte Carranza, DO [address] [place] [address] 05/05/2024 9:00 AM EDT Office Visit Family Medicine [address] [place] [phone] Bassem Winters MD [address] [place] [address] [place] [address] Health Maintenance Due Date Last Done Comments [...] this encounter Medical Devices Implanted Type Area Maintenance Machine Repairer Device Identifier Shelf Expiration Date Model / Serial / Lot Lens Intraoc 17.0 - [id number] - [id number] Implanted:Qty: 1 on 03/03/2017 by Dexter Nazario MD at OR [facility] Left: Eye [employer]CH [employer] LOMB 08/02/2021 [id number] / [id number] / [id number] Lens Intraoc 16.0 - [id number] - [id number] Implanted:Qty: 1 on 03/17/2017 by Dexter Nazario MD at [facility] Right: Eye [employer]CH [employer]OMB 08/02/2021 [id number] / [id number] / [id number] documented as of this encounter Advance Directives * Full Code (Latest Code Status on File) Date Activated Date Inactivated Comments 03/17/2017 6:45 AM 03/17/2017 1:10 PM This order reflects the patients wishes and were consensually agreed upon. * Full Code Date Activated Date Inactivated Comments 03/03/2017 6:58 AM 03/03/2017 1:23 PM This order ref lects the patients wishes and were consensually agreed upon. Care Teams Propulsion Machinery Service Engineer Relationship Specialty Start Date End Date Bassem Winters MD [address] [place] [address] [place] [phone] PCP - General Family Medicine 10/21/23 documented as of this encounter
--- OUTSIDE RECORDS SUMMARY | 2024-03-13 20:58 | External Medical Summary | Summary of Care ---
Author Name Unknown Organization [facility] Address [address] [facility] [place] [address] Phone [phone] Care Team Providers Care Director Product Development Name Role Phone Bassem Winters MD Primary Care Provide r Reason for Visit * Reason Onset Date Comments Med Request 01/25/2024 Encounter Details Date Type Department Care Team (Late st Contact Info) Description 01/25/2024 Telephone Family Medicine [address] [place] [address] Bassem Winters MD [address] [place] [address] [place] [phone] Med Request Allergies No known active allergiesdocumented as [...] Nasal Solution (Astelin)Indication s:Nasal congestion Administer 1 [place] into nostril in the morning and 1 [place] before bedtime. 30 mL 2 10/21/2023 Active traMADol HCl 50 MG Oral Tablet (Ultram)Indications :Compression fracture of L2 vertebra with routine healing, subsequent encounter Take 2 Tablets by mouth every 6 hours as needed for Pain, Severe. 60 Tablet 01/25/2024 Active oxyCODONE HCl 5 MG Oral Tablet (Oxy IR)Indications:Comp ression fracture of L2 vertebra with routine healing, subsequent encounter Take 1 Tablet by mouth every 4 hours as needed for Pain, Severe. 30 Tablet 01/25/2024 Discontinue d(Patient preference/ discontinua tion) documented as of this encounter (statuses as [...] mRNA, LNP-s, No Pre serve, 2-Dose Series ([employer]) 10/09/2020,09/18/2020 Covid-19, Mrna, Lnp-s, Pf, B ivalent, [...] Telephone Encounter - Makenna Navarrete RN - 01/25/2024 2:00 PM EDT Pt Notified of the higher amount of tramadol * Telephone Encounter - Mirlande Guaman OSA - 01/25/2024 12:28 PM EDT Pt was seen this morning and prescribed oxycodone but he does not want to take this. Pt prefer tramadol instead but possibly up the dosage amount. Please call back to advise. documented in this encounter Plan of Treatment Upcoming Encounters Date Type Department Care Team (Late st Contact Info) Description 02/24/2024 11:45 AM EDT Imaging [facility] 2nd Floor Cardiology, [place] 132 [facility] [place] [address] Gw, Excess Time Radiology 132 [facility] [place] [address] 03/04/2024 8:45 AM EDT Office Visit Cardiology, [facility] 132 [facility] [place] [address] Diane Saleh, DO [address] [place] [address] 03/18/2024 10:00 AM EDT Office Visit Hepatology, [facility] 132 [facility] [place] [address] Gertrudis Luna MD [address] [place] [address] [place] [address] 05/02/2024 10:00 AM EDT Office Visit Cardiology, [facility] 132 [facility] [place] [address] Dionte Carranza, DO 132 [facility] [place] [address] 05/05/2024 9:00 AM EDT Office Visit Family Medicine [address] [place] [phone] Bassem Winters MD [address] [place] [address] [place] [address] Health Maintenance Due Date Last Done Comments [...] this encounter Medical Devices Implanted Type Area Corporate Quality Engineer Device Identifier Shelf Expiration Date Model / Serial / Lot Lens Intraoc 17.0 - [id number] - [id number] Implanted:Qty: 1 on 03/03/2017 by Dexter Nazario MD at OR [facility] Left: Eye [employer]CH [employer] LOMB 08/02/2021 [id number] / [id number] / [id number] Lens Intraoc 16.0 - [id number] - [id number] Implanted:Qty: 1 on 03/17/2017 by Dexter Nazario MD at OR [facility] Right: Eye [employer]OMB 08/02/2021 [id number] / [id number] / [id number] documented as of this encounter Advance Directives [...] and were consensually agreed upon. Care Teams Director Product Development Relationship Specialty Start Date End Date Bassem Winters MD [address] [place] [address] [place] [phone] PCP - General Family Medicine 10/21/23 documented as of this encounter
--- OUTSIDE RECORDS SUMMARY | 2024-03-13 20:58 | External Medical Summary | Summary of Care ---
Author Name Unknown Organization [facility] Address [address] [facility] [place] [address] Phone [phone] Care Team Providers Care Tag And Label Cutter Name Role Phone Bassem Winters MD Primary [...] routine healing, subsequent encounter Bassem Winters MD [address] [place] [address] [place] [address] Referral ID Status Reason Start Date Expiration Date Visits Requested Visits Authorized [id number] Authorized Specialty Services Required 02/08/2024 999 999 Question Answer Referral Priority Within 10 days (routine) Where should this appointment be scheduled? External - [facility] Comments Documentation of Ywvp-hx-Teho Encounter Addendum Patient Name: Alphonse Hi I certify that this patient is under my care and that I, or a nurse practitioner or physician's mental health assistant working with me, had a xhxx-qm-jzko encounter that meets the physician mkpr-qx-nqqv encounter requirements with this patient on: 01/25/24 [...] effort and are for medical reasons or oriental orthodox services or infrequently or of short duration when for other reason) because: Difficult for pt to leave home Physician Signature: Date of Signature: Physician Printed Name:Dr Linda Winters Reason for Visit * Reason Onset Date Comments Order Request 02/03/2024 Encounter Details Date Type Department Care Team (Late st Contact Info) Description 02/03/2024 Telephone Family Medicine [address] [place] [address] Bassem Winters MD [address] [place] [address] [place] [phone] Order Request Allergies No known active allergiesdocumented as of this encounter (statuses as of 02/09/2024) Medications Medication Sig Dispensed Refills Start Date [...] Nasal Solution (Astelin)Indications :Nasal congestion Administer 1 [place] into nostril in the morning and 1 [place] before bedtime. 30 mL 2 10/21/2023 Active traMADol HCl 50 MG Oral Tablet (Ultram)Indications: Compression fracture of L2 vertebra with routine healing, subsequent encounter Take 2 Tablets by mouth every 6 hours as needed for Pain, Severe. 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 * Telephone Encounter - Bassem Winters MD - 02/08/2024 10:24 AM EDT Referral signed * Telephone Encounter - Yesika Rees OSA - 02/03/2024 2:31 PM EDT Pt has order for physical therapy and occupational Therapy. Pt would like to add home health. For questions call [place] ask for Fiorella [phone] documented in this encounter Plan of Treatment Upcoming Encounters Date Type Department Care Team (Late st Contact Info) Description 02/10/2024 1:30 PM EDT Office Visit Cardiology, [facility] 132 [facility] [place] [address] Brenda Cerrato PA-C [address] [place] [address] 02/24/2024 11:45 AM EDT Imaging [facility] 2nd Floor Cardiology, [address] [place] [phone] Gw, Excess Time Radiology 132 [facility] [place] [address] 03/04/2024 8:45 AM EDT Office Visit Cardiology, [facility] [address] [facility] [place] [address] Diane Saleh, DO [address] [facility] [place] [address] 03/18/2024 10:00 AM EDT Office Visit Hepatology, [facility] 132 [facility] [place] [address] Gertrudis Luna MD [address] [place] [address] [place] [address] 05/02/2024 10:00 AM EDT Office Visit Cardiology, [facility] 132 [facility] [place] [address] Dionte Carranza, DO 132 [facility] [place] [address] 05/05/2024 9:00 AM EDT Office Visit Family Medicine [facility] [place] [place] [address] Bassem Winters MD [address] [place] [address] [place] [address] Scheduled Referrals Name Type Priority Associated Diagnoses [...] this encounter Medical Devices Implanted Type Area Signal Constructor Device Identifier Shelf Expiration Date Model / Serial / Lot Lens Intraoc 17.0 - [id number] - [id number] Implanted:Qty: 1 on 03/03/2017 by Dexter Nazario MD at OR [facility] Left: Eye [employer]USCH [employer] LOMB 08/02/2021 [id number] / [id number] / [id number] Lens Intraoc 16.0 - [id number] - [id number] Implanted:Qty: 1 on 03/17/2017 by Dexter Nazario MD at OR [facility] Right: Eye BAUSCH [employer] LOMB 08/02/2021 [id number] / [id number] / [id number] documented as of this encounter Visit Diagnoses [...] and were consensually agreed upon. Care Teams Tag And Label Cutter Relationship Specialty Start Date End Date Bassem Winters MD [address] [place] [address] [place] [phone] PCP - General Family Medicine 10/21/23 documented as of this encounter
--- OUTSIDE RECORDS SUMMARY | 2024-03-13 20:58 | External Medical Summary | Summary of Care ---
Author Name Unknown Organization [facility] Address [address] [place] [address] Phone [phone] Care Team Providers Care Guard Immigration Name Role Phone Bassem Winters MD Primary Care Provide r Reason for Visit * Reason Onset Date Comments Med Request 01/22/2024 Encounter Details Date Type Department Care Team (Late st Contact Info) Description 01/22/2024 Telephone Family Medicine [address] [place] [phone] Bassem Winters MD [address] [place] [address] [place] [id number] Med Request Allergies No known active allergiesdocumented [...] Nasal Solution (Astelin)Indications :Nasal congestion Administer 1 [place] into nostril in the morning and 1 [place] before bedtime. 30 mL 2 10/21/2023 Active [...] mRNA, LNP-s, No Pre serve, 2-Dose Series ([employer]) 10/09/2020,09/18/2020 Covid-19, Mrna, Lnp-s, Pf, B ivalent, [...] Encounter - Sandra Hurt LPN - 01/22/2024 2:47 PM EDT Hospital Follow Up apt scheduled for Thursday I contacted vik about Tramadol order and she states Alphonse has enough Tramadol med's to get him through until Thursday. They will get it refill don Thursday at apt (Hospital Follow up ) * Telephone Encounter - Gregorio Lr hat model - 01/22/2024 11:35 AM EDT Pt's calling to ask for hospital refill. Patient recently admitted to [facility] for "broken back." TRAMADOL HCL 50 MG TABLETS TAKE ONE TABLET TWICE DAILY FOR PAIN. Prescriber: RITESH MONTESINOS. Medication was last prescribed by hospital. Caller transferred to schedule hospital follow up visit. Please advise if you wish to continue this therapy for the patient. [id number]- [place] Thank you, Gregorio Lr Lab Analyst I [facility] 01/22/2024,11:36 AM documented in this encounter Plan of Treatment Upcoming Encounters Date Type Department Care Team (Late st Contact Info) Description 01/25/2024 7:40 AM EDT Office Visit Family Medicine [address] [place] [phone] Mynor Kaminski MD [address] [place] [address] [place] [address] 02/24/2024 11:45 AM EDT Imaging [facility] 2nd Floor Cardiology, [place] [facility] [place] [address] Gw, Excess Time Radiology [address] [facility] [place] [address] 03/04/2024 8:45 AM EDT Office Visit Cardiology, [facility] [address] [facility] [place] [address] Diane Saleh, DO [address] [place], [place] [address] [address] 03/18/2024 10:00 AM EDT Office Visit Hepatology, [facility] [address] [facility] [place] [address] Gertrudis Luna MD [address] [place], [place] [address] [address] 05/02/2024 10:00 AM EDT Office Visit Cardiology, [facility] 132 [facility] [place] [address] Dionte Carranza, DO [address] [facility] [place] [address] 05/05/2024 9:00 AM EDT Office Visit Family Medicine [address] [place] [phone] Bassem Winters MD [address] [place] [address] [place] [address] Health Maintenance Due Date Last Done Comments [...] this encounter Medical Devices Implanted Type Area Hunter Device Identifier Shelf Expiration Date Model / Serial / Lot Lens Intraoc 17.0 - [id number] - [id number] Implanted:Qty: 1 on 03/03/2017 by Dexter Nazario MD at OR [facility] Left: Eye [employer] 08/02/2021 [id number] / [id number] / [id number] Lens Intraoc 16.0 - [id number] - [id number] Implanted:Qty: 1 on 03/17/2017 by Dexter Nazario MD at OR [facility] Right: Eye [employer]OM[employer] 08/02/2021 [id number] / [id number] / [id number] documented as of this encounter Advance Directives [...] and were consensually agreed upon. Care Teams Guard Immigration Relationship Specialty Start Date End Date Bassem Winters MD [address] [place] [address] [place] [address] PCP - General Family Medicine 10/21/23 documented as of this encounter
--- OUTSIDE RECORDS SUMMARY | 2024-03-13 20:58 | External Medical Summary | Summary of Care ---
Author Name Unknown Organization [facility] Address [address] [place] [address] Phone [phone] Care Team Providers Care Biofuels Production Associate Name Role Phone Bassem Winters MD Primary Care Provide r Reason for Referral * Medication Prior Authorization - Pending Review Specialty Diagnoses / Procedures Referred By Ghanshyam cano Referred To Contact Diagnoses Compression fracture of L2 vertebra with routine healing, subsequent encounter Mynor Olivier MD [address] [place] [address] [place] [address] Referral ID Status Reason Start Date Expiration Date V isits Requested Visits Authorized [id number] Pending Review 999 999 * Medication Prior Authorization - Closed Specialty Diagnoses / Procedures Referred By Ghanshyam cano Referred To Contact Diagnoses Compression fracture of L2 vertebra with routine healing, subsequent encounter Mynor Olivier MD [address] [place] [address] [place] [address] Referral ID Status Reason Start Date Expiration Date Visits Re quested Visits Authorized [id number] Closed 999 999 * Evaluate & Treat - Unlimited Visits (Within 3 days (urgent)) - Authorized Specialty Diagnoses / Procedures Referred By Ghanshyam cano Referred To Contact HOME CARE / Home Care Diagnoses Compression fracture of L2 vertebra with routine healing, subsequent encounter Mynor Olivier MD [address] [place] [address] [place] [address] Referral ID Status Reason Start Date Expiration Date Visits Requested Visits Authorized [id number] Authorized Specialty Services Required 01/25/2024 999 999 Question Answer Referral Priority Within 3 days (urgent) Where should this appointment be scheduled? Makenna Comments Documentation of Gerk-md-Psds Encounter Addendum Patient Name: Alphonse Hi I certify that this patient is under my care and that I, or a nurse practitioner or physician's political science research assistant working with me, had a andq-fx-uacw encounter that meets the physician wutn-jo-harh encounter requirements with this patient on: 01/25/2024 [...] 01/25/2024 7:40 AM EDT Office Visit Family [address] [phone] Mynor Olivier MD [address] [place] [address] [place] [address] Compression fracture of L2 vertebra with routine [...] Nasal Solution (Astelin)Indication s:Nasal congestion Administer 1 [place] into nostril in the morning and 1 [place] before bedtime. 30 mL 2 10/21/2023 Active [...] for Pain, Severe. 60 Tablet 01/25/2024 Active traMADol HCl 50 MG [...] mRNA, LNP-s, No Pre serve, 2-Dose Series (Predictivez) 10/09/2020,09/18/2020 Covid-19, Mrna, Lnp-s, Pf, B ivalent, [...] performed by Dexter Nazario MD at OR [facility] REMOVE CATARACT, INSERT LENS PROSTH Right 03/17/2017 right EXTRACAPSULAR CATARACT REMOVAL WITH INTRAOCULAR LENS performed by Dexter Nazario MD at OR [facility] VASC DUPLEX VENOUS LE UNILAT Right 06/18/2017 no [...] 0.1 % Nasal Solution (Astelin) Administer 1 Ethel into nostril in the morning and 1 Ethel before bedtime. 30 mL 2 No current facility-administered medications for this visit. Immunization History Administered Date(s) Administered COVID-19 mRNA, LNP-s, No Preserve, 2-Dose Series (Predictivez) 09/18/2020, 10/09/2020 Covid-19, Mrna, Lnp-s, Pf, Bivalent, [...] 01/25/2024 7:35 AM EDT Pt was in [facility] ER 01/20/24 pt fell in [...] Info) Description 02/24/2024 11:45 AM EDT Imaging [facility] 2nd Floor Cardiology, [place] [address] [place] [address] Gw, Excess Time Radiology 132 [place] [address] 03/04/2024 8:45 AM EDT Office Visit Cardiology, [facility] [address] [place] [address] Diane Saleh, DO [address] [place] [address] [place] [address] 03/18/2024 10:00 AM EDT Office Visit Hepatology, [facility] [address] [facility] [place] [address] Gertrudis Luna MD [address] [place] [address] 05/02/2024 10:00 AM EDT Office Visit Cardiology, [facility] [address] [facility] [place] [address] Dionte Carranza, 132 [facility] [place] [address] 05/05/2024 9:00 AM EDT Office Visit Family Medicine [address] [place] [phone] Bassem Winters MD [address] [place] [address] [place] [address] Scheduled Referrals Name Type Priority Associated Diagnoses [...] this encounter Medical Devices Implanted Type Area Supervisor [place] Device Identifier Shelf Expiration Date Model / Serial / Lot Lens Intraoc 17.0 - [id number] - [id number] Implanted:Qty: 1 on 03/03/2017 by Dexter Nazario MD at OR [facility] Left: Eye [employer]OM[employer] 08/02/2021 [id number] / [id number] / [id number] Lens Intraoc 16.0 - [id number] - [id number] Implanted:Qty: 1 on 03/17/2017 by Dexter Nazario MD at OR [facility] Right: Eye [employer]OM[employer] 08/02/2021 [id number] / [id number] / [id number] documented as of this encounter Visit Diagnoses [...] were consensually agreed upon. Care Teams Biofuels Production Associate Relationship Specialty Start Date End Date Bassem Winters MD [address] [place] [address] [place] [phone] PCP - General Family Medicine 10/21/23 documented as of this encounter
--- NOTE | 2024-03-13 21:24 | Emergency Department Note ---
Impression & Plan Near syncope, Thrombocytopenia, Elevated troponin ED Provider Note NAME: SID GERONIMO AGE: 83 SEX: M : 1940 ARRIVES VIA: Ambulance INFORMANT: Patient ED PROVIDER(S): Ryder Turner DO CHIEF COMPLAINT: Near syncope HPI: Patient is a 83-year-old male who presents to the ER with past medical history of alcohol abuse and decompensated liver failure who presents to the ER for 3 episodes of near syncope today. He notes he becomes very lightheaded and wobbly and everything nearly goes black. His notes that he has not fallen in several weeks. He denies any headache or change in vision. He admits to some intermittent shortness of breath. No chest pain. No dysuria, urgency, or frequency. No other exacerbating or remitting factors. ADDITIONAL HISTORY OBTAINED: Per HPI Chronic Medical/Social Conditions Affecting Care: Per HPI PAST MEDICAL HISTORY:See Below PAST SURGICAL HISTORY:See Below FAMILY HISTORY:See Below SOCIAL HISTORY:See Below HOME MEDICATIONS:See Below ALLERGIES:See Below VITALS:See Below PHYSICAL EXAMINATION: GENERAL: Sitting up in bed, alert, well appearing, well nourished, no distress, non-toxic EYE EXAM: normal conjunctiva. OROPHARYNX: no exudate, no erythema, lips, buccal mucosa, and tongue normal and mucous membranes are moist NECK: supple, no nuchal rigidity, no adenopathy, non-tender LUNGS: Clear to auscultation. Normal chest wall mechanics HEART: no murmurs, S1 normal and S2 normal ABDOMEN: abdomen soft, non-tender, normo-active bowel sounds, no masses, no rebound or guarding. BACK: Back is symmetrical on inspection and there is no deformity, no midline tenderness, no CVA tenderness. SKIN: Diffuse bruising throughout UPPER EXTREMITIES: upper extremities are grossly normal. LOWER EXTREMITIES: No pitting edema. NEURO EXAM: Normal sensorium, cranial nerves II-XII grossly intact, normal speech, no gross weakness of arms, no gross weakness of legs. MEDICAL DECISION MAKING: Patient is an 83-year-old male who presents ER for the above-stated complaint. IV was established blood work was obtained. Labs show no significant leukocytosis or anemia. Mild thrombocytopenia at 96 which actually improved from previous. BMP with a bilirubin of 2.8. No transaminitis. Troponin elevated at 58. External records were [facility] which shows 2 episodes [address] VT per Dr[address] Gilliam note. Is scheduled for pacer on Thursday. Patient was updated bedside discussed the case with the hospitalist for further evaluation management and treatment due to the 2 episodes of near syncope. Do not feel this consistent with ACS. Will hold on heparin at this time. Favor that this likely arrhythmia. Consults/Care Managements Discussions: Per [facility] Triage Nursing notes reviewed. Limited review of prior medical records performed Vital Signs: reviewed and remarkable for no significant abnormalities Differential diagnosis: Cardiac ischemia, aortic dissection, pulmonary embolism, pneumothorax, pneumonia, pericarditis, myocarditis, esophageal rupture, GERD, cholecystitis, pancreatitis, musculoskeletal, as well as other pathologies. ER treatment provided: See below Diagnostics interpreted by me include EKG and cardiac monitoring as listed below: -Cardiac Monitoring: An order was placed for continuous cardiac monitoring. The monitor shows a rate of 80 with A-fib rhythm. -ECG: A-fib rate 85 Left axis Right bundle branch block T wave inversions in the septal leads and high lateral leads QTc 511 -Laboratory studies:Interpreted by me as stated above in MDM and shown below. Imaging studies: Xrays: As interpreted by me: Portable AP upright 1 view of the chest shows no focal Lutrate CTs show: none Procedures:none Critical Care: None Past Med/Surg History Problem List (Updated 03/14/24 @ 00:16 by Ryder Turner DO) Elevated troponin (Acute) Thrombocytopenia (Acute) Near syncope (Acute) Bifascicular block Liver lesion Alcohol abuse Afib Anasarca Decompensated hepatic cirrhosis Abdominal ascites (Acute) Liver masses (Acute) Hyperbilirubinemia (Acute) Pulmonary edema (Acute) Elevated troponin I level (Acute) Abnormal EKG (Acute) Thrombocytopenia (Acute) Epistaxis (Acute) Medical History Gout Surgical History Hx of knee surgery Hx of hernia repair Hx of cataract extraction Hx of sinus surgery History of selective laser trabeculoplasty Family History Brother Heart disease Social History Smoking Status: Former smoker Hx Alcohol Use: Yes Alcohol type: beer Alcohol type Comment: 2 cases a week Alcohol Intake Frequency: 4 or More x per/Week Hx Substance Use: No Preferred Language: Sierra Leonean Communication Ability: Effective Engineering Model Maker Required: No Beliefs That Will Affect Care: None Current Living Situation: Spouse Feels Safe at Home: Yes Assistive Devices: Cane Allergies Allergies Allergy/AdvReac Type Severity Reaction Status Date / Time No Known Allergies Allergy Verified 03/13/24 22:01 Home Meds Home Medications Medication Instructions Recorded Confirmed qwelndmv-ijk-sevqb acid 0.4 1 tab PO DAILY 09/16/22 03/13/24 mg-lycopene 300 mcg-lutein 250 mcg tablet (Centrum Silver) azelastine 137 mcg (0.1 %) nasal 1 spray intranasal BID 03/13/24 03/13/24 spray calcium carbonate 600 mg PO BIDM 03/13/24 03/13/24 furosemide 40 mg tablet 40 - 80 mg PO QAM 03/13/24 03/13/24 spironolactone 25 mg tablet 25 mg PO QAM 03/13/24 03/13/24 thiamine HCl (vitamin B1) 100 mg 100 mg PO QAM 03/13/24 03/13/24 tablet triamcinolone acetonide 0.5 % 1 applic topical BID PRN AFFECTED 03/13/24 03/13/24 topical cream AREA NEEDED Previous Rx's Medication Instructions Recorded folic acid 1 mg tablet 1 mg PO QAM #30 tabs 09/21/22 tramadol 50 mg tablet 50 mg PO BID PRN pain #11 tabs 01/20/24 Results & Data (ED) Vital Signs Vital Signs - 24 hr 03/13/24 21:01 03/13/24 21:08 03/13/24 22:00 Temperature 37.0 C Temperature Source Oral Pulse Rate 81 80 Pulse Rate from SpO2 Sensor 73 Respiratory Rate 24 24 Respiratory Effort / Characteristics Labored Blood Pressure 120/58 L 112/48 L Blood Pressure Mean 78 69 Pulse Oximetry 96 96 Oxygen Delivery Method Room Air Sepsis Recent Fever Within 48 Hours No Sepsis New/Unexplained Change in Mental Status No Sepsis Action Taken by Nursing No Action Required Laboratory Data 03/13/24 21:00 03/13/24 22:31 Lab Results 03/13/24 03/13/24 Range/Units 21:00 22:31 WBC 7.77 (4.8-10.8) K/ul RBC 4.57 L (4.70-6.10) M/uL Hgb 15.4 (14.0-18.0) g/dl Hct 44.5 (42.0-52.0) % MCV 97.4 (80.0-100.0) fL MCH 33.7 (25.0-34.0) pg MCHC 34.6 (32.0-36.0) g/dL RDW Std Deviation 55.6 H (36.4-46.3) fL RDW Coeff of Irene 15.5 H (11.5-14.5) % Plt Count 96 L (130-400) K/uL MPV 10.6 (9.4-12.4) fL Immature Gran % (Auto) 0.4 % Neut % (Auto) 69.7 % Lymph % (Auto) 15.6 % Harney % (Auto) 11.6 % Eos % (Auto) 2.1 % Baso % (Auto) 0.6 % Neut # (Auto) 5.42 (1.40-6.50) K/uL Lymph # (Auto) 1.21 (1.20-3.40) K/uL Harney # (Auto) 0.90 H (0.11-0.59) K/uL Eos # (Auto) 0.16 (0.00-0.50) K/uL Baso # (Auto) 0.05 (0.00-0.20) K/uL Immature Gran # (Auto) 0.03 (0.01-0.20) K/uL Sodium Cancelled 135 L Potassium Cancelled 3.6 Chloride Cancelled 104 Carbon Dioxide Cancelled 25 Anion Gap Cancelled 6 BUN Cancelled 16 Creatinine Cancelled 0.68 Est Cr Clr Drug Dosing Cancelled 102.2 Est GFR ( Amer) Cancelled 103.8 Est GFR (Non-Af Amer) Cancelled 89.6 BUN/Creatinine Ratio Cancelled 23.5 H Glucose Cancelled 139 H Calcium Cancelled 8.3 L Total Bilirubin Cancelled 2.8 H AST Cancelled 33 ALT Cancelled 19 Alkaline Phosphatase Cancelled 109 H Troponin I High Sens Cancelled 58.4 H* Total Protein Cancelled 5.5 L Albumin Cancelled 2.6 L Globulin Cancelled 2.9 Albumin/Globulin Ratio Cancelled 0.9 Lipase Cancelled 45 Discharge Plan Visit Data Chief Complaint: Cardiac Assessment Stated Complaint: Weakness, SOB, Syncope ED Provider: Ryder Turner Discharge Problem: Near syncope, Thrombocytopenia, Elevated troponin Forms Stand Alone Forms: [facility] Prescriptions Prescriptions: No Action Centrum Silver 0.4 mg-300 mcg- 250 mcg Tablet 1 tab PO DAILY folic acid 1 mg Tablet 1 mg PO QAM Qty: 30 0RF tramadol 50 mg tablet 50 mg PO BID PRN (Reason: pain) Qty: 11 0RF furosemide 40 mg tablet 40 - 80 mg PO QAM triamcinolone acetonide 0.5 % Cream 1 applic TOPICAL BID PRN (Reason: AFFECTED AREA NEEDED) thiamine HCl (vitamin B1) 100 mg tablet 100 mg PO QAM spironolactone 25 mg tablet 25 mg PO QAM calcium carbonate [Caltrate 600] 600 mg calcium (1,500 mg) Tablet 600 mg PO BIDM azelastine 137 mcg (0.1 %) spray,non-aerosol 1 spray INTRANASAL BID Referrals Referrals: Bassem Winters MD [Primary Care Provider] -
[2024-03-13 21:35] LABS: Basophils # (auto) 0.05 K/uL (0.00-0.20); Basophils % (auto) 0.6 %; Eosinophils # (auto) 0.16 K/uL (0.00-0.50); Eosinophils % (auto) 2.1 %; Hematocrit (blood only) 44.5 % (42.0-52.0); Hemoglobin 15.4 g/dl (14.0-18.0); Immature Granulocytes # (auto) 0.03 K/uL (0.01-0.20); Immature Granulocytes % (auto) 0.4 %; Lymphocytes # (auto) 1.21 K/uL (1.20-3.40); Lymphocytes % (auto) 15.6 %; Mean Corpuscular Hemoglobin 33.7 pg (25.0-34.0); Mean Corpuscular Hgb Conc 34.6 g/dL (32.0-36.0); Mean Corpuscular Volume 97.4 fL (80.0-100.0); Mean Platelet Volume 10.6 fL (9.4-12.4); Monocytes % (auto) 11.6 %; Neutrophils # (auto) 5.42 K/uL (1.40-6.50); Neutrophils % (auto) 69.7 %; Platelet Count 96 K/uL (130-400); RDW Coefficient of Variation 15.5 % (11.5-14.5); RDW Standard Deviation 55.6 fL (36.4-46.3); Red Blood Count 4.57 M/uL (4.70-6.10); White Blood Count 7.77 K/ul (4.8-10.8)
[2024-03-13 23:02] LABS: Albumin Globulin Ratio 0.9 (0.9-2); Albumin Level 2.6 gm/dl (3.4-5.0); BUN Creatinine Ratio 23.5 (10-20); Bilirubin,Total 2.8 mg/dl (0.2-1.0); Calcium 8.3 mg/dl (8.6-10.3); Creatinine Clr Calc Pharmacy 102.2 ml/min; Est GFR (African American) 103.8 ml/min; Est GFR (Non-African American) 89.6 ml/min; Globulin 2.9 gm/dl (2.5-4.0); Potassium 3.6 mmol/L (3.5-5.1); Total Protein 5.5 gm/dl (6.0-8.3)
[2024-03-13 23:13] LABS: Troponin I High Sensitivity 58.4 pg/ml (0-20)
--- NOTE | 2024-03-13 23:59 | History & Physical Report ---
Date of Service March 13, 2024 Assessment & Plan (1) Near syncope: Plan: 83-year-old male with past medical history significant for venous insufficiency of both lower extremities, nonsustained ventricular tachycardia, right bundle branch, alcoholic cirrhosis of liver without ascites, history of liver mass, gout, history of alcohol use ,patient states not drinking since last 2 months Used to drink 2 cases of beer per week lives with his and ambulates with walker comes because of dizziness and near syncope. Patient states when he woke up in the morning when he tried to get up he felt very dizzy and he sat down and after 10 minutes again got up and when he ambulated through hallway and into the bathroom he felt like passing out , he held the sink and then sat on the commode after some time he was able to get up and then whole day he sat in the chair watching football match. Around 7 PM again he felt was feeling dizzy and then he decided come to the hospital. In the hospital initially was having some blurred vision but now he can see okay and also there was an episode when things were moving horizontally. Currently resting comfortably and alert and oriented. States he was also having imbalance while ambulating with walker. Currently d enies any headache. Vision is okay. He has no headache.Thinks there could be some ear infection, but denies any earaches. No runny nose or sore throat. No cough. Appetite is okay. No difficulty swallowing. No chest pain or shortness of breath. No nausea. No abdominal pain. Normal bowel and bladder movements. Hemodynamics are okay.Patient also had an abnormal Zio patch. Irreversible sym ptomatic sinus bradycardia.Nonsustained ventricular tachycardia on Zio patch 11/2023 during sleep. APC/PVC. 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 Seen by EP and plan for dual-chamber pacemaker on 03/16/2024. Near syncope New A-fib There is a plan for dual-chamber pacemaker on 03/16/2024 for irreversible sinus bradycardia. Patient also has nonsustained ventricular tachycardia and right bundle branch block Telemonitoring N.p.o. Echo Serial cardiac enzymes Cardiac consult in a.m. for further recommendations Dizziness and imbalance Meclizine as needed Will follow MRI and CTA head and neck Neurology consult in a.m. PT OT when stable New A-fib Rates under control Has liver cirrhosis and thrombocytopenia Telemetry Cardiac consult in a.m. for further recommendations Elevated troponin We will follow serial enzymes and echo Cardio consulted Alcoholic cirrhosis of liver without ascites Patient says currently stopped drinking about 2 months ago Continue home Lasix and spironolactone has lower extremity edema Monitor for volume overload Liver mass Biopsy was done in September 2022 and study was nondiagnostic Core biopsy was recommended Since patient has not followed up PCP ordered repeat CT scan in October 2023 but is not done yet Can get CAT scan while patient is in the hospital Lower extremity venous insufficiency On diuretics We will check Dopplers Possible right external otitis media Ciprodex eardrops Thrombocytopenia Platelets 96 Will follow labs Ambulatory dysfunction Uses walker PT OT DVT prophylaxis SCDs for now Disposition Telemetry Full code. History of Present Illness Chief Complaint: Dizziness, near syncope Primary Care Provider: Bassem Winters MD 83-year-old male with past medical history significant for venous insufficiency of both lower extremities, nonsustained ventricular tachycardia, right bundle branch, alcoholic cirrhosis of liver without ascites, history of liver mass, gout, history of alcohol use ,patient states not drinking since last 2 months U sed to drink 2 cases of beer per week lives with his and ambulates with walker comes because of dizziness and near syncope. Patient states when he woke up in the morning when he tried to get up he felt very dizzy and he sat down and after 10 minutes again got up and when he ambulated through hallway and into the bathroom he felt like passing out , he held the sink and then sat on the commode after some time he was able to get up and then whole day he sat in the chair watching football match. Around 7 PM again he felt was feeling dizzy and then he decided come to the hospital. In the hospital initially was having some blurred vision but now he can see okay and also there was an episode when things were moving horizontally. Currently resting comfortably and alert and oriented. States he was also having imbalance while ambulating with walker. Currently denies any headache. Vision is okay. He has no headache.Thinks there could be some ear infection, but denies any earaches. No runny nose or sore throat. No cough. Appetite is okay. No difficulty swallowing. No chest pain or shortness of breath. No nausea. No abdominal pain. Normal bowel and bladder movements. Hemodynamics are okay.Patient also had an abnormal Zio patch. Irreversible symptomatic sinus bradycardia.Nonsustained ventricular tachycardia on Zio patch 11/2023 during sleep. APC/PVC. 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 Seen by EP and plan for dual-chamber pacemaker on 03/16/2024. Past medical history. As mentioned above Past surgical history. Nasal endoscopy. Bilateral cataracts. Social history. . Quit smoking 1984. Says not drinking since last 2 months, seems used to drink about 2 case of beer a week. No drug use. Family history. Brother had cancer. Sister had glaucoma. Brother had DC. Allergies Allergy/AdvReac Type Severity Reaction Status Date / Time No Known Allergies Allergy Verified 03/13/24 22:01 Home Medications Medication Instructions Recorded Confirmed Type [id number] acid 0.4 1 tab PO DAILY 09/16/22 03/13/24 History mg-lycopene 300 mcg-lutein 250 mcg tablet (Centrum Silver) folic acid 1 mg tablet 1 mg PO QAM #30 tabs 09/21/22 03/13/24 Rx tramadol 50 mg tablet 50 mg PO BID PRN pain #11 tabs 01/20/24 03/13/24 Rx azelastine 137 mcg (0.1 %) nasal 1 spray intranasal BID 03/13/24 03/13/24 History spray calcium carbonate 600 mg PO BIDM 03/13/24 03/13/24 History furosemide 40 mg tablet 40 - 80 mg PO QAM 03/13/24 03/13/24 History spironolactone 25 mg tablet 25 mg PO QAM 03/13/24 03/13/24 History thiamine HCl (vitamin B1) 100 mg 100 mg PO QAM 03/13/24 03/13/24 History tablet triamcinolone acetonide 0.5 % 1 applic topical BID PRN AFFECTED 03/13/24 03/13/24 History topical cream AREA NEEDED Past Med/Surg History Problem List (Updated 03/14/24 @ 00:16 by Ryder Turner DO) Elevated troponin (Acute) Thrombocytopenia (Acute) Near syncope (Acute) Bifascicular block Liver lesion Alcohol abuse Afib Anasarca Decompensated hepatic cirrhosis Abdominal ascites (Acute) Liver masses (Acute) Hyperbilirubinemia (Acute) Pulmonary edema (Acute) Elevated troponin I level (Acute) Abnormal EKG (Acute) Thrombocytopenia (Acute) Epistaxis (Acute) Medical History Gout Surgical History Hx of knee surgery Hx of hernia repair Hx of cataract extraction Hx of sinus surgery History of selective laser trabeculoplasty Family History Brother Heart disease Social History Smoking Status: Former smoker Tobacco Type: Cigarettes Second Hand Exposure: No; Do You Dip or Chew Tobacco: No; Tobacco Cessation Education Requested by Patient: No Hx Alcohol Use: Yes Alcohol type: beer Alcohol type Comment: 2 cases a week Alcohol Intake Frequency: 4 or More x per/Week Hx Substance Use: No Preferred Language: German Communication Ability: Effective Char Filter Operator Helper Required: No Beliefs That Will Affect Care: None Current Living Situation: Spouse Other Information That Helps Us Care for You: No Feels Safe at Home: Yes Safety Concerns: Feels Safe At This Time Assistive Devices: Walker Review of Systems Review of Systems: All systems reviewed & are unremarkable except as noted in HPI & below Physical Exam Physical Exam: General- Not in distress Head- atraumatic Eyes- PERRL, EOMI No nystagmus seen ENT- oropharynx clear Right ear erythema seen in ear canal Neck- supple, no JVD. Lungs- clear to auscultation no wheezing or crackles Heart- regular rate and rhythm; no murmur, no gallop. Abdomen- normal bowel sounds, soft, nontender, no distension Extremities- b/l lower extremity edema with chronic skin changes seen. No erythema seen. Neuro- alert, oriented PERRL, EOMI; no facial palsy; no dysarthria; motor 5/5 upper extremities 3/5 lower extremities; no pronator drift, normal co ordination of movements, sensations and position sense intact. Results & Data Results & Data Vital Signs (Past 12 Hours) Vital Signs Temp Pulse Resp BP Pulse Ox O2 Del Method 03/13/24 22:00 24 112/48 L 96 03/13/24 21:08 37.0 C 80 24 120/58 L 96 Room Air 03/13/24 21:01 81 Diagnostic Findings Laboratory Results WBC 7.77 K/ul (4.8-10.8) 03/13/24 21:00 RBC 4.57 M/uL (4.70-6.10) L 03/13/24 21:00 Hgb 15.4 g/dl (14.0-18.0) 03/13/24 21:00 Hct 44.5 % (42.0-52.0) 03/13/24 21:00 MCV 97.4 fL (80.0-100.0) 03/13/24 21:00 MCH 33.7 pg (25.0-34.0) 03/13/24 21:00 MCHC 34.6 g/dL (32.0-36.0) 03/13/24 21:00 RDW Std Deviation 55.6 fL (36.4-46.3) H 03/13/24 21:00 RDW Coeff of Irene 15.5 % (11.5-14.5) H 03/13/24 21:00 Plt Count 96 K/uL (130-400) L 03/13/24 21:00 MPV 10.6 fL (9.4-12.4) 03/13/24 21:00 Immature Gran % (Auto) 0.4 % 03/13/24 21:00 Neut % (Auto) 69.7 % 03/13/24 21:00 Lymph % (Auto) 15.6 % 03/13/24 21:00 [place] % (Auto) 11.6 % 03/13/24 21:00 Eos % (Auto) 2.1 % 03/13/24 21:00 Baso % (Auto) 0.6 % 03/13/24 21:00 Neut # (Auto) 5.42 K/uL (1.40-6.50) 03/13/24 21:00 Lymph # (Auto) 1.21 K/uL (1.20-3.40) 03/13/24 21:00 [place] # (Auto) 0.90 K/uL (0.11-0.59) H 03/13/24 21:00 Eos # (Auto) 0.16 K/uL (0.00-0.50) 03/13/24 21:00 Baso # (Auto) 0.05 K/uL (0.00-0.20) 03/13/24 21:00 Immature Gran # (Auto) 0.03 K/uL (0.01-0.20) 03/13/24 21:00 Sodium 135 mmol/L (136-145) L 03/13/24 22:31 Potassium 3.6 mmol/L (3.5-5.1) 03/13/24 22:31 Chloride 104 mmol/L (98-107) 03/13/24 22:31 Carbon Dioxide 25 mmol/L (21-32) 03/13/24 22:31 Anion Gap 6 (3-11) 03/13/24 22:31 BUN 16 mg/dl (6-23) 03/13/24 22:31 Creatinine 0.68 mg/dl (0.6-1.4) 03/13/24 22:31 Est Cr Clr Drug Dosing 102.2 ml/min 03/13/24 22:31 Est GFR ( Amer) 103.8 ml/min 03/13/24 22:31 Est GFR (Non-Af Amer) 89.6 ml/min 03/13/24 22:31 BUN/Creatinine Ratio 23.5 (10-20) H 03/13/24 22:31 Glucose 139 mg/dl (70-99(Fasting)) H 03/13/24 22:31 Calcium 8.3 mg/dl (8.6-10.3) L 03/13/24 22:31 Total Bilirubin 2.8 mg/dl (0.2-1.0) H 03/13/24 22:31 AST 33 U/L (13-39) 03/13/24 22:31 ALT 19 U/L (7-52) 03/13/24 22:31 Alkaline Phosphatase 109 U/L (34-104) H 03/13/24 22:31 Troponin I High Sens 58.4 pg/ml (0-20) H* 03/13/24 22:31 Total Protein 5.5 gm/dl (6.0-8.3) L 03/13/24 22:31 Albumin 2.6 gm/dl (3.4-5.0) L 03/13/24 22:31 Globulin 2.9 gm/dl (2.5-4.0) 03/13/24 22:31 Albumin/Globulin Ratio 0.9 (0.9-2) 03/13/24 22:31 Lipase 45 U/L (11-82) 03/13/24 22:31 ECG Additional Comments: ECG. Atrial fibrillation rate of 85. Right bundle branch block. Left anterior fascicle block. Bifascicular block. Left ventricular hypertrophy. QTc 511 Code Status & VTE Plan VTE Prophylaxis Plan VTE Prophylaxis will be ordered: Yes
[2024-03-14] MEDS ORDERED: NITROGLYCERIN SL 0.4 MG/TAB TAB SL PRN (03:22)
[2024-03-14] MEDS ORDERED: traMADol HCL 50 MG TABLET PO PRN (03:22)
[2024-03-14] MEDS: OPTIRAY 320 125ml IV ONE (03:49)
[2024-03-14] MEDS: GADOBUTROL 65ML VIAL IV ONE (04:18)
--- NOTE | 2024-03-14 04:32 | CT Scan Report ---
Exam(s): CTA HEAD With Contrast IV Amt: 118 ML OPTIRAY 320 EXAM: CT Angiography Head With Intravenous Contrast CLINICAL HISTORY: Reason for exam: dizziness, nausea. TECHNIQUE: Axial computed tomographic angiography images of the head with intravenous contrast. CTDI is 14.2 mGy and DLP is 576.8 mGy-cm. Automated exposure control was utilized for the study. A dose lowering technique was utilized adhering to the principles of ALARA. MIP reconstructed images were created and reviewed. CONTRAST: Patient received 118 ML OPTIRAY 320 of IV contrast COMPARISON: Noncontrast CT head January 20, 2024 FINDINGS: Right internal carotid artery: No acute findings. Intracranial segment is patent with no significant stenosis. No aneurysm. Right anterior cerebral artery: Unremarkable. No occlusion or significant stenosis. No aneurysm. Right middle cerebral artery: Unremarkable. No occlusion or significant stenosis. No aneurysm. Right posterior cerebral artery: Unremarkable. No occlusion or significant stenosis. No aneurysm. Right vertebral artery: Unremarkable as visualized. Left internal carotid artery: No acute findings. Intracranial segment is patent with no significant stenosis. No aneurysm. Left anterior cerebral artery: Unremarkable. No occlusion or significant stenosis. No aneurysm. Left middle cerebral artery: Unremarkable. No occlusion or significant stenosis. No aneurysm. Left posterior cerebral artery: Unremarkable. No occlusion or significant stenosis. No aneurysm. Left vertebral artery: Unremarkable as visualized. Basilar artery: Unremarkable. No occlusion or significant stenosis. No aneurysm. Other vasculature: Atherosclerotic disease. Brain: Areas of decreased attenuation in the deep cerebral white matter are consistent with small vessel ischemic/degenerative changes. The cerebral and cerebellar sulci are prominent consistent with brain atrophy. Anatomic variant posterior inferior cerebellar artery continuation of the distal right vertebral. IMPRESSION: 1. Small vessel ischemic/degenerative changes. 2. Cerebral and cerebellar atrophy. Electronically signed by: Abhay Bedolla MD 03/14/24 04:31 AM
--- NOTE | 2024-03-14 04:36 | CT Scan Report ---
Exam(s): CTA NECK With Contrast IV Amt: 118 ML OPTIRAY 320 EXAM: CT Angiography Neck With Intravenous Contrast CLINICAL HISTORY: Reason for exam: dizziness, nausea. TECHNIQUE: Routine carotid CT angiography protocol was performed with intravenous contrast. NASCET criteria using the distal ICAs for comparison were used for evaluation of stenoses. CTDI is 14.18 mGy and DLP is 576.84 mGy-cm. Automated exposure control was utilized for the study. A dose lowering technique was utilized adhering to the principles of ALARA. MIP reconstructed images were created and reviewed. CONTRAST: Patient received 118 ML OPTIRAY 320 of IV contrast COMPARISON: None. FINDINGS: VASCULATURE: Right common carotid artery: Unremarkable. No occlusion or significant stenosis. No dissection. Right internal carotid artery: Unremarkable. Mild calcific plaquing at the origin. Extracranial segment is patent with no occlusion or significant stenosis. No dissection. Right external carotid artery: Unremarkable. No occlusion. Right vertebral artery: Unremarkable. No occlusion or significant stenosis. No dissection. Left common carotid artery: Unremarkable. No occlusion or significant stenosis. No dissection. Left internal carotid artery: Unremarkable. Mild calcific plaquing at the origin. Extracranial segment is patent with no occlusion or significant stenosis. No dissection. Left external carotid artery: Unremarkable. No occlusion. Left vertebral artery: Unremarkable. No occlusion or significant stenosis. No dissection. 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 Soft tissues: Unremarkable. Lung apices: Upper lung emphysema. CAROTID STENOSIS REFERENCE USING NASCET CRITERIA: % ICA stenosis = (1 - narrowest ICA diameter/diameter of distal cervical ICA) x 100. Mild - <50% stenosis. Moderate - 50-69% stenosis. Severe - 70-94% stenosis. Near occlusion - 95-99% stenosis. Occluded - 100% stenosis. IMPRESSION: 1. Upper lung emphysema. 2. 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 3. Unremarkable CT angiography of the neck. Electronically signed by: Abhay Bedolla MD 03/14/24 04:35 AM
--- NOTE | 2024-03-14 05:14 | Magnetic Resonance Report ---
Exam(s): MRI HEAD W/WO Contrast IV Amt: 9.5cc gadavist EXAM: MR Head Without and With Intravenous Contrast CLINICAL HISTORY: Reason for exam: dizziness, imbalance. TECHNIQUE: Magnetic resonance images of the head/brain without and with intravenous contrast in multiple planes. CONTRAST: Patient received 9.5cc gadavist of IV contrast COMPARISON: Prior head CT from January 20, 2024. FINDINGS: Brain: Minimal nonspecific white matter changes. The flow voids of the base the brain are intact. No mass. No hemorrhage. No acute infarct. Normal enhancement of brain parenchyma. The dural venous sinuses are patent. Ventricles: Moderate ventriculomegaly. Bones/joints: Moderate to advanced facet arthropathy at C2-3 and C3-4. No acute fracture. Sinuses: Chronic ethmoid sinusitis. No acute sinusitis. Mastoid air cells: To mild fluid in the right mastoid air cells. No mastoid effusion. Orbits: Bilateral lens replacements. IMPRESSION: No evidence of acute intracranial pathology. Minimal nonspecific white matter changes. Electronically signed by: Juliette Scott MD 03/14/24 05:13 AM
[2024-03-14 05:42] LABS: Basophils # (auto) 0.03 K/uL (0.00-0.20); Basophils % (auto) 0.5 %; Eosinophils # (auto) 0.17 K/uL (0.00-0.50); Hematocrit (blood only) 41.5 % (42.0-52.0); Hemoglobin 14.3 g/dl (14.0-18.0); Immature Granulocytes # (auto) 0.02 K/uL (0.01-0.20); Immature Granulocytes % (auto) 0.4 %; Lymphocytes # (auto) 0.93 K/uL (1.20-3.40); Lymphocytes % (auto) 16.6 %; Mean Corpuscular Hemoglobin 33.7 pg (25.0-34.0); Mean Corpuscular Hgb Conc 34.5 g/dL (32.0-36.0); Mean Corpuscular Volume 97.9 fL (80.0-100.0); Monocytes # (auto) 0.67 K/uL (0.11-0.59); Neutrophils # (auto) 3.77 K/uL (1.40-6.50); Neutrophils % (auto) 67.5 %; Platelet Count 58 K/uL (130-400); RDW Coefficient of Variation 15.5 % (11.5-14.5); RDW Standard Deviation 56.1 fL (36.4-46.3); Red Blood Count 4.24 M/uL (4.70-6.10); White Blood Count 5.59 K/ul (4.8-10.8)
[2024-03-14 06:02] LABS: BUN Creatinine Ratio 23.7 (10-20); Calcium 8.2 mg/dl (8.6-10.3); Creatinine Clr Calc Pharmacy 115.9 ml/min; Est GFR (Non-African American) 94.9 ml/min; Magnesium 1.5 mg/dl (1.7-2.4); Potassium 3.4 mmol/L (3.5-5.1)
[2024-03-14 06:18] LABS: Troponin I High Sensitivity 58.6 pg/ml (0-20)
--- NOTE | 2024-03-14 06:43 | XRay Report ---
XR chest 1V portable CLINICAL HISTORY: Chest pain, nonspecific TECHNIQUE: Single frontal radiograph of the chest was obtained. Comparison: Comparison is made to chest radiograph 09/16/2019 FINDINGS: No lines and tubes are seen. Cardiomegaly is noted. The aortic arch is calcified. Reticular interstit ial opacities are seen. No evidence of pleural effusion or pneumothorax. IMPRESSION: Interstitial thickening is seen without definite underlying airspace opacity. ACT 112: Negative or not required by law. Electronically signed by: Lico Stevenson M.D. 03/14/2024 6:42 AM
[2024-03-14] MEDS ORDERED: MECLIZINE 12.5 MG TAB PO PRN (08:20)
[2024-03-14] MEDS: CALCIUM 600MG + VIT D 400 IU TAB PO SCH (08:34)
[2024-03-14] MEDS: FOLIC ACID 1 MG TAB PO SCH (08:35)
[2024-03-14] MEDS: FUROSEMIDE 40 MG TAB PO SCH (08:35)
[2024-03-14] MEDS: CEROVITE ADV FORMULA TAB PO SCH (08:35)
[2024-03-14] MEDS: SPIRONOLACTONE 25 MG TAB PO SCH (08:36)
[2024-03-14] MEDS: THIAMINE HCL 100 MG TAB PO SCH (08:39)
[2024-03-14] MEDS: AZELASTINE HCL 0.1% NASAL 200 SPRAYS/27,400 MCG BTL SCH (08:45)
[2024-03-14] MEDS: CIPRO 0.3%/DEXAMETHASONE 0.1% OTIC SUSP 7.5ML OTR SCH (08:45)
[2024-03-14] MEDS: MAGNESIUM SULFATE / D5W 1 GM/100 ML BAG IV SCH (09:36)
[2024-03-14] MEDS: POTASSIUM CHLORIDE CRTAB 20 MEQ TABCR PO ONE (09:41)
--- NOTE | 2024-03-14 10:42 | Neurology Consultation ---
Date of Consultation March 14, 2024 Assessment & Plan (1) Near syncope: Recommend assess orthostatic vital signs Q4 hours Recommend continue frequent neurological assessments Obtain stat CT brain without contrast for any acute neurological decline Continue to monitor/control blood glucose Continue to monitor telemetry closely Continue to monitor renal and hepatic function, keep euvolemic PT/OT/SLT to eval and treat Telehealth Consultation Telehealth Information Telehealth Information: I performed this visit using a real-time telehealth connection between my location and the patients location ([facility]). After connecting through interactive tele-video, patient was identified by name and date of and/or wristband check.Patient (or authorized healthcare signs sales representative) was informed that this was a telemedicine visit and it was being conducted confidentially over secure lines. My office door was closed and no one else was present in the room with me.Patient (or authorized healthcare signs sales representative) provided consent to proceed with the visit, expressed an understanding of privacy and security of the telemedicine visit, and gave permission to have a hospital signs sales representative in the room in order to assist with the visit and to conduct portions of the visit, as needed. I informed the patient (or authorized healthcare signs sales representative) that I reviewed their record and presented the opportunity for them to ask any questions regarding the visit today. The patient agreed to participate. History of Present Illness Reason for Consultation: Near syncope Requesting Physician: Dr. Ly Attending Physician: Mayo Ly MD History of Present Illness 83yo male presents with episode of weakness/dizziness/lightheadedness per his own account. Reports felt more dizzy and lightheaded when trying to stand from a siting position. He has significant history of BLE venous insufficiency. He has undergone CTA head & neck revealing no evidence of significant/flow limiting stenosis. He has also undergone MRI brain revealing no overt evidence of acute intracranial abnormality. He denies complete loss of consciousness. At this time there is no concern for seizure. No reported chest pain or SOB at time of event. He has a significant cardiac history and has plan for cardiac pacer device implantation this week. I have performed televideo consultation. He is alert & oriented; able to answer all questions appropriately, name objects on televideo monitor, repeat phrases and perform complex/embedded commands without deficit. Neurological exam is non lateralizing/nonfocal in terms of motor strength and coordination. Allergies Allergy/AdvReac Type Severity Reaction Status Date / Time No Known Allergies Allergy Verified 03/13/24 22:01 Home Medications Medication Instructions Recorded Confirmed Type qmmozpzr-dll-mbrng acid 0.4 1 tab PO DAILY 09/16/22 03/13/24 History mg-lycopene 300 mcg-lutein 250 mcg tablet (Centrum Silver) folic acid 1 mg tablet 1 mg PO QAM #30 tabs 09/21/22 03/13/24 Rx tramadol 50 mg tablet 50 mg PO BID PRN pain #11 tabs 01/20/24 03/13/24 Rx azelastine 137 mcg (0.1 %) nasal 1 spray intranasal BID 03/13/24 03/13/24 History spray calcium carbonate 600 mg PO BIDM 03/13/24 03/13/24 History furosemide 40 mg tablet 40 - 80 mg PO QAM 03/13/24 03/13/24 History spironolactone 25 mg tablet 25 mg PO QAM 03/13/24 03/13/24 History thiamine HCl (vitamin B1) 100 mg 100 mg PO QAM 03/13/24 03/13/24 History tablet triamcinolone acetonide 0.5 % 1 applic topical BID PRN AFFECTED 03/13/24 03/13/24 History topical cream AREA NEEDED Patient History Medical History Gout Surgical History Hx of knee surgery Hx of hernia repair Hx of cataract extraction Hx of sinus surgery History of selective laser trabeculoplasty Family History Brother Heart disease Social History Smoking Status: Former smoker Tobacco Type: Cigarettes Second Hand Exposure: No; Do You Dip or Chew Tobacco: No; Tobacco Cessation Education Requested by Patient: No Hx Alcohol Use: Yes Alcohol type: beer Alcohol type Comment: 2 cases a week Alcohol Intake Frequency: 4 or More x per/Week Hx Substance Use: No Preferred Language: Polish Communication Ability: Effective Salvage Mechanic Required: No Beliefs That Will Affect Care: None Current Living Situation: Spouse Other Information That Helps Us Care for You: No Feels Safe at Home: Yes Safety Concerns: Feels Safe At This Time Assistive Devices: Walker Physical Exam Neurological Examination: Mental Status: Awake and alert. Oriented to person, place, and time. Fluency naming repetition and comprehension appear grossly intact. Affect remains appropriate. CN testing: I: Denies changes in ability to smell II:Reports no changes in visual acuity III/IV/: No evidence of gaze preference, hippus, nystagmus or roving eye movements V: Facial sensation reportedly grossly intact to light touch bilaterally VII: Facial movements appear without evidence of asymmetry VIII: Hearing appears grossly intact to loud voice bilaterally IX/X: Palate appears to elevate symmetrically XI: Shoulder shrug appears symmetric/ grossly intact bilaterally XII: Tongue protrudes midline without evidence of biting Motor exam: Strength appears baseline per patient- he has chronic BLE weakness Sensory: Deferred Coordination: No apparent evidence of dysmetria or dysdiadochokinesia Reflexes: Deferred Gait: Deferred Results & Data Vital Signs (Past 12 Hours) Vital Signs Temp Pulse Pulse Resp BP BP BP 03/14/24 10:17 67 18 119/41 L 03/14/24 09:15 53 L 03/14/24 07:38 58 L 18 138/68 03/14/24 04:00 36.4 C L 64 18 134/56 L 03/14/24 03:45 36.4 C L 59 L 22 150/68 H 03/14/24 01:37 58 L 03/14/24 01:30 03/14/24 00:30 66 18 113/63 03/14/24 00:09 67 18 141/76 H 03/13/24 23:00 69 13 129/67 Pulse Ox O2 Del Method 03/14/24 10:17 95 Room Air 03/14/24 09:15 03/14/24 07:38 96 Room Air 03/14/24 04:00 97 Room Air 03/14/24 03:45 97 Room Air 03/14/24 01:37 03/14/24 01:30 Room Air 03/14/24 00:30 94 03/14/24 00:09 93 03/13/24 23:00 94 Laboratory Results Abnormal lab results 03/13/24 03/13/24 03/14/24 Range/Units 21:00 22:31 00:23 RBC 4.57 L (4.70-6.10) M/uL Hct (42.0-52.0) % RDW Std Deviation 55.6 H (36.4-46.3) fL RDW Coeff of Irene 15.5 H (11.5-14.5) % Plt Count 96 L (130-400) K/uL Lymph # (Auto) (1.20-3.40) K/uL Louisa # (Auto) 0.90 H (0.11-0.59) K/uL Sodium 135 L (136-145) mmol/L Potassium (3.5-5.1) mmol/L Creatinine (0.6-1.4) mg/dl BUN/Creatinine Ratio 23.5 H (10-20) Glucose 139 H (70-99(Fasting)) mg/dl Calcium 8.3 L (8.6-10.3) mg/dl Magnesium (1.7-2.4) mg/dl Total Bilirubin 2.8 H (0.2-1.0) mg/dl Alkaline Phosphatase 109 H (34-104) U/L Troponin I High Sens 58.4 H* 57.5 H* (0-20) pg/ml Total Protein 5.5 L (6.0-8.3) gm/dl Albumin 2.6 L (3.4-5.0) gm/dl 24 03/14/24 Range/Units 05:29 11:24 RBC 4.24 L (4.70-6.10) M/uL Hct 41.5 L (42.0-52.0) % RDW Std Deviation 56.1 H (36.4-46.3) fL RDW Coeff of Irene 15.5 H (11.5-14.5) % Plt Count 58 L (130-400) K/uL Lymph # (Auto) 0.93 L (1.20-3.40) K/uL Louisa # (Auto) 0.67 H (0.11-0.59) K/uL Sodium 135 L (136-145) mmol/L Potassium 3.4 L (3.5-5.1) mmol/L Creatinine 0.59 L (0.6-1.4) mg/dl BUN/Creatinine Ratio 23.7 H (10-20) Glucose 122 H (70-99(Fasting)) mg/dl Calcium 8.2 L (8.6-10.3) mg/dl Magnesium 1.5 L (1.7-2.4) mg/dl Total Bilirubin (0.2-1.0) mg/dl Alkaline Phosphatase (34-104) U/L Troponin I High Sens 58.6 H* 62.7 H* (0-20) pg/ml Total Protein (6.0-8.3) gm/dl Albumin (3.4-5.0) gm/dl Diagnostic Findings Chest X-Ray 03/13/24 21:04 XR chest 1V portable CLINICAL HISTORY: Chest pain, nonspecific TECHNIQUE: Single frontal radiograph of the chest was obtained. Comparison: Comparison is made to chest radiograph 09/16/2019 FINDINGS: No lines and tubes are seen. Cardiomegaly is noted. The aortic arch is calcified. Reticular interstitial opacities are seen. No evidence of pleural effusion or pneumothorax. IMPRESSION: Interstitial thickening is seen without definite underlying airspace opacity. ACT 112: Negative or not required by law. Electronically signed by: Lico Stevenson M.D. 03/14/2024 6:42 AM Brain MRI 03/14/24 03:22 Exam(s): MRI HEAD W/WO Contrast IV Amt: 9.5cc gadavist EXAM: MR Head Without and With Intravenous Contrast CLINICAL HISTORY: Reason for exam: dizziness, imbalance. TECHNIQUE: Magnetic resonance images of the head/brain without and with intravenous contrast in multiple planes. CONTRAST: Patient received 9.5cc gadavist of IV contrast COMPARISON: Prior head CT from January 20, 2024. FINDINGS: Brain: Minimal nonspecific white matter changes. The flow voids of the base the brain are intact. No mass. No hemorrhage. No acute infarct. Normal enhancement of brain parenchyma. The dural venous sinuses are patent. Ventricles: Moderate ventriculomegaly. Bones/joints: Moderate to advanced facet arthropathy at C2-3 and C3-4. No acute fracture. Sinuses: Chronic ethmoid sinusitis. No acute sinusitis. Mastoid air cells: To mild fluid in the right mastoid air cells. No mastoid effusion. Orbits: Bilateral lens replacements. IMPRESSION: No evidence of acute intracranial pathology. Minimal nonspecific white matter changes. Electronically signed by: Juliette Scott MD 03/14/24 05:13 AM Head CTA 03/14/24 03:22 Exam(s): CTA HEAD With Contrast IV Amt: 118 ML OPTIRAY 320 EXAM: CT Angiography Head With Intravenous Contrast CLINICAL HISTORY: Reason for exam: dizziness, nausea. TECHNIQUE: Axial computed tomographic angiography images of the head with intravenous contrast. CTDI is 14.2 mGy and DLP is 576.8 mGy-cm. Automated exposure control was utilized for the study. A dose lowering technique was utilized adhering to the principles of ALARA. MIP reconstructed images were created and reviewed. CONTRAST: Patient received 118 ML OPTIRAY 320 of IV contrast COMPARISON: Noncontrast CT head January 20, 2024 FINDINGS: Right internal carotid artery: No acute findings. Intracranial segment is patent with no significant stenosis. No aneurysm. Right anterior cerebral artery: Unremarkable. No occlusion or significant stenosis. No aneurysm. Right middle cerebral artery: Unremarkable. No occlusion or significant stenosis. No aneurysm. Right posterior cerebral artery: Unremarkable. No occlusion or significant stenosis. No aneurysm. Right vertebral artery: Unremarkable as visualized. Left internal carotid artery: No acute findings. Intracranial segment is patent with no significant stenosis. No aneurysm. Left anterior cerebral artery: Unremarkable. No occlusion or significant stenosis. No aneurysm. Left middle cerebral artery: Unremarkable. No occlusion or significant stenosis. No aneurysm. Left posterior cerebral artery: Unremarkable. No occlusion or significant stenosis. No aneurysm. Left vertebral artery: Unremarkable as visualized. Basilar artery: Unremarkable. No occlusion or significant stenosis. No aneurysm. Other vasculature: Atherosclerotic disease. Brain: Areas of decreased attenuation in the deep cerebral white matter are consistent with small vessel ischemic/degenerative changes. The cerebral and cerebellar sulci are prominent consistent with brain atrophy. Anatomic variant posterior inferior cerebellar artery continuation of the distal right vertebral. IMPRESSION: 1. Small vessel ischemic/degenerative changes. 2. Cerebral and cerebellar atrophy. Electronically signed by: Abhay Bedolla MD 03/14/24 04:31 AM Neck CTA 03/14/24 03:22 Exam(s): CTA NECK With Contrast IV Amt: 118 ML OPTIRAY 320 EXAM: CT Angiography Neck With Intravenous Contrast CLINICAL HISTORY: Reason for exam: dizziness, nausea. TECHNIQUE: Routine carotid CT angiography protocol was performed with intravenous contrast. NASCET criteria using the distal ICAs for comparison were used for evaluation of stenoses. CTDI is 14.18 mGy and DLP is 576.84 mGy-cm. Automated exposure control was utilized for the study. A dose lowering technique was utilized adhering to the principles of ALARA. MIP reconstructed images were created and reviewed. CONTRAST: Patient received 118 ML OPTIRAY 320 of IV contrast COMPARISON: None. FINDINGS: VASCULATURE: Right common carotid artery: Unremarkable. No occlusion or significant stenosis. No dissection. Right internal carotid artery: Unremarkable. Mild calcific plaquing at the origin. Extracranial segment is patent with no occlusion or significant stenosis. No dissection. Right external carotid artery: Unremarkable. No occlusion. Right vertebral artery: Unremarkable. No occlusion or significant stenosis. No dissection. Left common carotid artery: Unremarkable. No occlusion or significant stenosis. No dissection. Left internal carotid artery: Unremarkable. Mild calcific plaquing at the origin. Extracranial segment is patent with no occlusion or significant stenosis. No dissection. Left external carotid artery: Unremarkable. No occlusion. Left vertebral artery: Unremarkable. No occlusion or significant stenosis. No dissection. 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 Soft tissues: Unremarkable. Lung apices: Upper lung emphysema. CAROTID STENOSIS REFERENCE USING NASCET CRITERIA: % ICA stenosis = (1 - narrowest ICA diameter/diameter of distal cervical ICA) x 100. Mild - <50% stenosis. Moderate - 50-69% stenosis. Severe - 70-94% stenosis. Near occlusion - 95-99% stenosis. Occluded - 100% stenosis. IMPRESSION: 1. Upper lung emphysema. 2. 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 3. Unremarkable CT angiography of the neck. Electronically signed by: Abhay Bedolla MD 03/14/24 04:35 AM Medications Administered Home Medications Medication Instructions Recorded Confirmed Last Taken yqbhjeoh-dhv-iqrdb acid 0.4 1 tab PO DAILY 09/16/22 03/13/24 03/13/24 mg-lycopene 300 mcg-lutein 250 mcg tablet (Centrum Silver) folic acid 1 mg tablet 1 mg PO QAM #30 tabs 09/21/22 03/13/24 03/13/24 tramadol 50 mg tablet 50 mg PO BID PRN pain #11 tabs 01/20/24 03/13/24 Unknown azelastine 137 mcg (0.1 %) nasal 1 spray intranasal BID 03/13/24 03/13/24 03/13/24 spray calcium carbonate 600 mg PO BIDM 03/13/24 03/13/24 03/13/24 furosemide 40 mg tablet 40 - 80 mg PO QAM 03/13/24 03/13/24 03/13/24 spironolactone 25 mg tablet 25 mg PO QAM 03/13/24 03/13/24 03/13/24 thiamine HCl (vitamin B1) 100 mg 100 mg PO QAM 03/13/24 03/13/24 03/13/24 tablet triamcinolone acetonide 0.5 % 1 applic topical BID PRN AFFECTED 03/13/24 03/13/24 Unknown topical cream AREA NEEDED Active Medications Generic Name Dose Route Start Last Admin Trade Name Christoph PRN Reason Stop Dose Admin Azelastine HCl 1 sprays 03/14/24 09:00 03/14/24 08:45 Azelastine Hcl 0.1% Nasal 200 Sprays/27,400 Mcg Btl NA 04/13/24 08:59 1 sprays BID YOHANNES Administration Calcium/Vitamin D 1 tab 03/14/24 08:00 03/14/24 08:34 Calcium 600mg + Vit D 400 Iu Tab PO 04/13/24 07:59 1 tab BIDM YOHANNES Administration Ciprofloxacin/Dexamethasone 4 drops 03/14/24 09:00 03/14/24 08:45 Cipro 0.3%/Dexamethasone 0.1% Otic Susp 7.5ml OTR 04/13/24 08:59 4 drops BID YOHANNES Administration Folic Acid 1 mg 03/14/24 09:00 03/14/24 08:35 Folic Acid 1 Mg Tab PO 04/13/24 08:59 1 mg QAM YOHANNES Administration Furosemide 40 mg 03/14/24 09:00 03/14/24 08:35 Furosemide 40 Mg Tab PO 04/13/24 08:59 40 mg QAM YOHANNES Administration Magnesium Sulfate/Dextrose 1 gm in 100 mls @ 50 mls/hr 03/14/24 09:15 4 11:39 Magnesium Sulfate / D5w IV 03/14/24 13:14 50 mls/hr Q2H YOHANNES Administration Multivitamins/Minerals 1 tab 03/14/24 09:00 03/14/24 08:35 Cerovite Adv Formula Tab PO 04/13/24 08:59 1 tab DAILY YOHANNES Administration Spironolactone 25 mg 03/14/24 09:00 03/14/24 08:36 Spironolactone 25 Mg Tab PO 04/13/24 08:59 25 mg QAM YOHANNES Administration Thiamine HCl 100 mg 03/14/24 09:00 03/14/24 08:39 Thiamine Hcl 100 Mg Tab PO 04/13/24 08:59 100 mg QAM YOHANNES Administration
--- NOTE | 2024-03-14 12:45 | Hospitalist Progress Note ---
Date of Service March 14, 2024 Assessment & Plan (1) Near syncope: Plan: 83-year-old male with past medical history significant for venous insufficiency of both lower extremities, nonsustained ventricular tachycardia, right bundle branch, alcoholic cirrhosis of liver without ascites, history of liver mass, gout, history of alcohol use ,patient states not drinking since last 2 months Used to drink 2 cases of beer per week lives with his and ambulates with walker comes because of dizziness and near syncope. Patient states when he woke up in the morning when he tried to get up he felt very dizzy and he sat down and after 10 minutes again got up and when he ambulated through hallway and into the bathroom he felt like passing out , he held the sink and then sat on the commode after some time he was able to get up and then whole day he sat in the chair watching football match. Around 7 PM again he felt was feeling dizzy and then he decided come to the hospital. In the hospital initially was having some blurred vision but now he can see okay and also there was an episode when things were moving horizontally. Currently resting comfortably and alert and oriented. States he was also having imbalance while ambulating with walker. Currently d enies any headache. Vision is okay. He has no headache.Thinks there could be some ear infection, but denies any earaches. No runny nose or sore throat. No cough. Appetite is okay. No difficulty swallowing. No chest pain or shortness of breath. No nausea. No abdominal pain. Normal bowel and bladder movements. Hemodynamics are okay.Patient also had an abnormal Zio patch. Irreversible sym ptomatic sinus bradycardia.Nonsustained ventricular tachycardia on Zio patch 11/2023 during sleep. APC/PVC. 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 Seen by EP and plan for dual-chamber pacemaker on 03/16/2024. 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 Minimal nonspecific white matter changes. --Head CTA:Small vessel ischemic/degenerative changes. Cerebral and cerebellar atrophy. --Neck CTA:Multilevel cervical spine spondylotic changes with multilevel bilateral foraminal stenosis. Unremarkable CT angiography of the neck. --ECHO: Left ventricle is normal in size. Mild concentric LVH. Left ventricle wall motion is normal. EF 55 to 60%. Grade 1 diastolic dysfunction. Aortic valve is mildly calcified with mild restriction in leaflet mobility. No significant stenosis. Mild mitral annular calcification. Trace mitral and tricuspid regurgitation. -- Avoid AV betsy blocking agents Appreciate cardiology, neurology input Plan for pacemaker placement Check orthostatics Monitor and replete electrolytes as needed Alcoholic cirrhosis of liver without ascites Patient says currently stopped drinking about 2 months ago Continue home Lasix and spironolactone Monitor for volume overload Continue thiamine, folic acid Liver mass Biopsy was done in September 2022 and study was nondiagnostic Core biopsy was recommended PCP ordered repeat CT scan in October 2023 but is not done yet Needs follow-up as outpatient for further evaluation Lower extremity venous insufficiency On diuretics Venous Doppler studies pending Possible right external otitis media Ciprodex eardrops Chronic thrombocytopenia 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 No acute bleeding issues Monitor platelet count Ambulatory dysfunction Uses walker at baseline Fall precautions PT OT eval DVT prophylaxis SCDs for now Re: thrombocytopenia Code Status Full code Disposition PT OT prior to discharge Admission and Anticipated Discharge Date Admission Date: March 13, 2024 Subjective Patient is seen and examined at bedside States having intermittent dizziness Denies any chest pain, dyspnea, nausea, vomiting, abdominal pain today Discussed with cardiology and neurology today No other complaints Review of Systems Review of Systems: All systems reviewed & are unremarkable except as noted in Subjective Physical Exam Physical Exam: Physical Exam: Vitals signs as noted above General Appearance:Obese, no apparent distress Head: normocephalic, Atraumatic Eyes: normal inspection, EOMI Neck: supple, Trachea midline Respiratory/Chest: Normal breath sounds, CTA, No accessory muscle use Cardiovascular: S1, S2, No murmur Abdomen/GI:Soft, Non tender, Bowel sounds present Extremities/Musculoskeletal:normal inspection, 1-2+ B/L LE edema, chronic venous stasis changes Neurologic/Psych:AAOX3, grossly no focal neurological deficits Skin: normal color, warm Results & Data Results & Data Vital Signs (Past 12 Hours) Vital Signs Temp Pulse Pulse Resp BP BP Pulse Ox 03/14/24 10:17 67 18 119/41 L 95 03/14/24 09:15 53 L 03/14/24 07:38 58 L 18 138/68 96 03/14/24 04:00 36.4 C L 64 18 134/56 L 97 03/14/24 03:45 36.4 C L 59 L 22 150/68 H 97 03/14/24 01:37 58 L 03/14/24 01:30 O2 Del Method 03/14/24 10:17 Room Air 03/14/24 09:15 03/14/24 07:38 Room Air 03/14/24 04:00 Room Air 03/14/24 03:45 Room Air 03/14/24 01:37 03/14/24 01:30 Room Air Laboratory Results Short CBC 03/13/24 03/14/24 Range/Units 21:00 05:29 WBC 7.77 5.59 (4.8-10.8) K/ul Hgb 15.4 14.3 (14.0-18.0) g/dl Hct 44.5 41.5 L (42.0-52.0) % Plt Count 96 L 58 L (130-400) K/uL BMP 03/13/24 03/13/24 03/14/24 21:00 22:31 05:29 Sodium Cancelled 135 L 135 L Potassium Cancelled 3.6 3.4 L Chloride Cancelled 104 104 Carbon Dioxide Cancelled 25 25 BUN Cancelled 16 14 Creatinine Cancelled 0.68 0.59 L Glucose Cancelled 139 H 122 H Calcium Cancelled 8.3 L 8.2 L Liver Function 03/13/24 03/13/24 Range/Units 21:00 22:31 Total Bilirubin Cancelled 2.8 H AST Cancelled 33 ALT Cancelled 19 Alkaline Phosphatase Cancelled 109 H Albumin Cancelled 2.6 L
--- NOTE | 2024-03-14 12:56 | Cardiology Consultation ---
Date of Consultation March 14, 2024 Assessment & Plan (1) Near syncope: (2) Trifascicular bundle branch block: (3) High degree atrioventricular block: Plan 83-year-old male with known conduction system disease with plan dual-chamber pacemaker insertion on 03/15/2024 admitted with episodic near syncope. EKGs and telemetry since admission intermittent high degree/third-degree AV block No acute neurologic Hemodynamically stable. No signs of fever or infection Will continue plans for pacemaker insertion on Thursday Avoid AV node blocking medications No atrial fibrillation observed History of Present Illness Reason for Consultation: Patient is an 83-year-old male with ongoing cardiac concerns which include 1. 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 Nonsustained ventricular tachycardia 4. Alcoholic cirrhosis Patient somewhat vague historian but admitted with near syncopal spells and weakness. Currently no complaints no chest pains, shortness of breath, tachypalpitations. 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, sinus and sinus tachycardia noted Currently without complaint Neurological evaluation without focal abnormality Attending Physician: Mayo Ly MD History of Present Illness As above Allergies Allergy/AdvReac Type Severity Reaction Status Date / Time No Known Allergies Allergy Verified 03/13/24 22:01 Home Medications Medication Instructions Recorded Confirmed Type orualvaq-pvo-ulglu acid 0.4 1 tab PO DAILY 09/16/22 03/13/24 History mg-lycopene 300 mcg-lutein 250 mcg tablet (Centrum Silver) folic acid 1 mg tablet 1 mg PO QAM #30 tabs 09/21/22 03/13/24 Rx tramadol 50 mg tablet 50 mg PO BID PRN pain #11 tabs 01/20/24 03/13/24 Rx azelastine 137 mcg (0.1 %) nasal 1 spray intranasal BID 03/13/24 03/13/24 History spray calcium carbonate 600 mg PO BIDM 03/13/24 03/13/24 History furosemide 40 mg tablet 40 - 80 mg PO QAM 03/13/24 03/13/24 History spironolactone 25 mg tablet 25 mg PO QAM 03/13/24 03/13/24 History thiamine HCl (vitamin B1) 100 mg 100 mg PO QAM 03/13/24 03/13/24 History tablet triamcinolone acetonide 0.5 % 1 applic topical BID PRN AFFECTED 03/13/24 03/13/24 History topical cream AREA NEEDED Patient History Medical History Gout Surgical History Hx of knee surgery Hx of hernia repair Hx of cataract extraction Hx of sinus surgery History of selective laser trabeculoplasty Family History Brother Heart disease Social History Smoking Status: Former smoker Tobacco Type: Cigarettes Second Hand Exposure: No; Do You Dip or Chew Tobacco: No; Tobacco Cessation Education Requested by Patient: No Hx Alcohol Use: Yes Alcohol type: beer Alcohol type Comment: 2 cases a week Alcohol Intake Frequency: 4 or More x per/Week Hx Substance Use: No Preferred Language: Cypriot Communication Ability: Effective Shear Operator Required: No Beliefs That Will Affect Care: None Current Living Situation: Spouse Other Information That Helps Us Care for You: No Feels Safe at Home: Yes Safety Concerns: Feels Safe At This Time Assistive Devices: Walker Review of Systems Review of Systems: All systems reviewed & are unremarkable except as noted in HPI & below Physical Exam Constitutional: WD/WN, vitals as above Eyes: PERRL, conjunctivae normal, anicteric sclerae ENMT: external ear and nose normal, oropharynx normal Results & Data Vital Signs (Past 12 Hours) Vital Signs Temp Pulse Pulse Resp BP BP Pulse Ox 03/14/24 10:17 67 18 119/41 L 95 03/14/24 09:15 53 L 03/14/24 07:38 58 L 18 138/68 96 03/14/24 04:00 36.4 C L 64 18 134/56 L 97 03/14/24 03:45 36.4 C L 59 L 22 150/68 H 97 03/14/24 01:37 58 L 03/14/24 01:30 O2 Del Method 03/14/24 10:17 Room Air 03/14/24 09:15 03/14/24 07:38 Room Air 03/14/24 04:00 Room Air 03/14/24 03:45 Room Air 03/14/24 01:37 03/14/24 01:30 Room Air Laboratory Results Laboratory Results - last 24 hr 03/13/24 03/13/24 03/14/24 21:00 22:31 00:23 WBC 7.77 RBC 4.57 L Hgb 15.4 Hct 44.5 MCV 97.4 MCH 33.7 MCHC 34.6 RDW Std Deviation 55.6 H RDW Coeff of Irene 15.5 H Plt Count 96 L MPV 10.6 Immature Gran % (Auto) 0.4 Neut % (Auto) 69.7 Lymph % (Auto) 15.6 [place] % (Auto) 11.6 Eos % (Auto) 2.1 Baso % (Auto) 0.6 Neut # (Auto) 5.42 Lymph # (Auto) 1.21 [place] # (Auto) 0.90 H Eos # (Auto) 0.16 Baso # (Auto) 0.05 Immature Gran # (Auto) 0.03 Sodium Cancelled 135 L Potassium Cancelled 3.6 Chloride Cancelled 104 Carbon Dioxide Cancelled 25 Anion Gap Cancelled 6 BUN Cancelled 16 Creatinine Cancelled 0.68 Est Cr Clr Drug Dosing Cancelled 102.2 Est GFR ( Amer) Cancelled 103.8 Est GFR (Non-Af Amer) Cancelled 89.6 BUN/Creatinine Ratio Cancelled 23.5 H Glucose Cancelled 139 H Calcium Cancelled 8.3 L Magnesium Total Bilirubin Cancelled 2.8 H AST Cancelled 33 ALT Cancelled 19 Alkaline Phosphatase Cancelled 109 H Troponin I High Sens Cancelled 58.4 H* 57.5 H* Total Protein Cancelled 5.5 L Albumin Cancelled 2.6 L Globulin Cancelled 2.9 Albumin/Globulin Ratio Cancelled 0.9 Lipase Cancelled 45 03/14/24 03/14/24 05:29 11:24 WBC 5.59 RBC 4.24 L Hgb 14.3 Hct 41.5 L MCV 97.9 MCH 33.7 MCHC 34.5 RDW Std Deviation 56.1 H RDW Coeff of Irene 15.5 H Plt Count 58 L MPV 10.0 Immature Gran % (Auto) 0.4 Neut % (Auto) 67.5 Lymph % (Auto) 16.6 [place] % (Auto) 12.0 Eos % (Auto) 3.0 Baso % (Auto) 0.5 Neut # (Auto) 3.77 Lymph # (Auto) 0.93 L [place] # (Auto) 0.67 H Eos # (Auto) 0.17 Baso # (Auto) 0.03 Immature Gran # (Auto) 0.02 Sodium 135 L Potassium 3.4 L Chloride 104 Carbon Dioxide 25 Anion Gap 6 BUN 14 Creatinine 0.59 L Est Cr Clr Drug Dosing 115.9 Est GFR ( Amer) 110.0 Est GFR (Non-Af Amer) 94.9 BUN/Creatinine Ratio 23.7 H Glucose 122 H Calcium 8.2 L Magnesium 1.5 L Total Bilirubin AST ALT Alkaline Phosphatase Troponin I High Sens 58.6 H* 62.7 H* Total Protein Albumin Globulin Albumin/Globulin Ratio Lipase
--- NOTE | 2024-03-14 13:11 | Electrocardiogram Report ---
Test Reason : Blood Pressure : */* mmHG Vent. Rate : 85 BPM Atrial Rate : * BPM P-R Int : * ms QRS Dur : 158 ms QT Int : 430 ms P-R-T Axes : * -57 96 degrees QTcB Int : 511 ms Atrial fibrillation Right bundle branch block Left anterior fascicular block Bifascicular block Left ventricular hypertrophy with repolarization abnormality ( R in aVL ) Cannot rule out Septal infarct , age undetermined Abnormal ECG When compared with ECG of 18-Sep-2022 05:54, Atrial fibrillation has replaced Sinus rhythm Minimal criteria for Septal infarct are now Present Confirmed by Pablo Clark ([id number]) on 03/14/2024 1:10:40 PM Referred By: REFERRED SELF Confirmed By: Pablo Clark
--- NOTE | 2024-03-14 13:32 | Electrocardiogram Report ---
Test Reason : Blood Pressure : */* mmHG Vent. Rate : 60 BPM Atrial Rate : 92 BPM P-R Int : * ms QRS Dur : 162 ms QT Int : 494 ms P-R-T Axes : 80 -56 117 degrees QTcB Int : 494 ms Poor data quality, interpretation may be adversely affected Sinus rhythm with intermittent complete heart block Right bundle branch block Left anterior fascicular block Bifascicular block Left ventricular hypertrophy with repolarization abnormality Abnormal ECG When compared with ECG of 13-Mar-2024 20:57, (unconfirmed) Significant changes have occurred Confirmed by Pablo Clark ([id number]) on 03/14/2024 1:32:26 PM Referred By: REFERRED SELF Confirmed By: Pablo Clark
--- NOTE | 2024-03-14 15:43 | Ultrasound Report ---
BILATERAL LOWER EXTREMITY VENOUS DOPPLER HISTORY: Acute pain and swelling of the lower legs b/l lower ext edema. dvt? COMPARISON STUDY: None. FINDINGS: Subcutaneous edema. There is normal compressibility, flow, and augmentation within the bila teral lower extremity deep venous systems. IMPRESSION: No DVT within the right or left lower extremity. ACT 112: Negative or not required by law. Electronically signed by: Miguel Angel Harris M.D. 03/14/2024 3:42 PM
[2024-03-15 06:39] LABS: Hematocrit (blood only) 39.9 % (42.0-52.0); Hemoglobin 14.2 g/dl (14.0-18.0); Mean Corpuscular Hemoglobin 34.5 pg (25.0-34.0); Mean Corpuscular Hgb Conc 35.6 g/dL (32.0-36.0); Mean Corpuscular Volume 96.8 fL (80.0-100.0); Mean Platelet Volume 10.3 fL (9.4-12.4); Platelet Count 65 K/uL (130-400); RDW Coefficient of Variation 15.5 % (11.5-14.5); RDW Standard Deviation 54.7 fL (36.4-46.3); Red Blood Count 4.12 M/uL (4.70-6.10); White Blood Count 5.18 K/ul (4.8-10.8)
[2024-03-15 06:53] LABS: BUN Creatinine Ratio 22.7 (10-20); Calcium 8.4 mg/dl (8.6-10.3); Creatinine Clr Calc Pharmacy 103.7 ml/min; Est GFR (African American) 105.1 ml/min; Est GFR (Non-African American) 90.7 ml/min; Magnesium 1.7 mg/dl (1.7-2.4); Potassium 3.9 mmol/L (3.5-5.1)
[2024-03-15] MEDS: POLYETHYLENE (MIRALAX) 17 GM PACK PO PRN (10:33)
--- NOTE | 2024-03-15 10:58 | Electrocardiogram Report ---
Test Reason : Blood Pressure : */* mmHG Vent. Rate : 57 BPM Atrial Rate : 57 BPM P-R Int : * ms QRS Dur : 166 ms QT Int : 464 ms P-R-T Axes : * -55 20 degrees QTcB Int : 451 ms Sinus rhythm with intermittent complete heart block Right bundle branch block Left anterior fascicular block Bifascicular block Moderate voltage criteria for LVH, may be normal variant Abnormal ECG When compared with ECG of 14-Mar-2024 06:28, T wave inversion now evident in Inferior leads Confirmed by Pablo Clark ([id number]) on 03/15/2024 10:57:58 AM Referred By: REFERRED SELF Confirmed By: Pablo Clark
[2024-03-15] MEDS: MAGNESIUM CHLORIDE W/CALCIUM 64MG DELAYED REL TAB PO SCH (11:20)
--- NOTE | 2024-03-15 12:30 | Cardiology Progress Note ---
Date of Service March 15, 2024 Assessment & Plan (1) Near syncope: (2) Trifascicular bundle branch block: (3) High degree atrioventricular block: Plan 83-year-old male with known conduction system disease with plan dual-chamber pacemaker insertion on 03/15/2024 admitted with episodic near syncope. EKGs and telemetry since admission intermittent high degree/third-degree AV block No acute neurologic Hemodynamically stable. No signs of fever or infection Will continue plans for pacemaker insertion on Thursday Avoid AV node blocking medications No atrial fibrillation observed 03/15/2024 Continued high degree AV block but tolerating well planned dual-chamber pacemaker in a.m. N.p.o. after midnight Will hold furosemide and spironolactone in a.m. Received MiraLAX today due to complaints of constipation Admission and Anticipated Discharge Date Admission Date: March 13, 2024 Subjective Patient seen and examined, chart, medications, telemetry reviewed Still with high degree AV block, intermittent third-degree AV block. Preserved blood pressure No acute symptoms Only complaint constipation No fevers or chills. Review of Systems Review of Systems: All systems reviewed & are unremarkable except as noted in Subjective Physical Exam Constitutional: WD/WN, vitals as above Eyes: PERRL, conjunctivae normal, anicteric sclerae ENMT: external ear and nose normal, oropharynx normal Neck: trachea midline, no thyromegaly Respiratory: normal respiratory effort, lungs clear to auscultation Cardiovascular: Rate/Rhythm: regular rate and + bradycardic Heart Sounds: normal S1 and normal S2 Extremities: no edema (Chronic stasis change) Gastrointestinal (Abdomen): normal bowel sounds, soft, nontender, no hepatosplenomegaly Results & Data Vital Signs (Past 12 Hours) Vital Signs Temp Pulse Pulse Resp BP Pulse Ox O2 Del Method 03/15/24 10:23 63 17 117/55 L 96 Room Air 03/15/24 09:52 Room Air 03/15/24 08:00 60 03/15/24 07:27 36.6 C 62 19 99/59 L 93 Room Air 03/15/24 02:47 36.6 C 76 16 104/61 95 Room Air Laboratory Results Laboratory Results - last 24 hr 03/14/24 03/15/24 16:57 06:15 WBC 5.18 RBC 4.12 L Hgb 14.2 Hct 39.9 L MCV 96.8 MCH 34.5 H MCHC 35.6 RDW Std Deviation 54.7 H RDW Coeff of Irene 15.5 H Plt Count 65 L MPV 10.3 Sodium 135 L Potassium 3.9 Chloride 104 Carbon Dioxide 26 Anion Gap 5 BUN 15 Creatinine 0.66 Est Cr Clr Drug Dosing 103.7 Est GFR ( Amer) 105.1 Est GFR (Non-Af Amer) 90.7 BUN/Creatinine Ratio 22.7 H Glucose 105 H Calcium 8.4 L Magnesium 1.7 Troponin I High Sens 61.7 H*
--- NOTE | 2024-03-15 16:45 | Hospitalist Progress Note ---
Date of Service March 15, 2024 Assessment & Plan (1) Near syncope: Plan: 83-year-old male with past medical history significant for venous insufficiency of both lower extremities, nonsustained ventricular tachycardia, right bundle branch, alcoholic cirrhosis of liver without ascites, history of liver mass, gout, history of alcohol use ,patient states not drinking since last 2 months Used to drink 2 cases of beer per week lives with his and ambulates with walker comes because of dizziness and near syncope. Patient states when he woke up in the morning when he tried to get up he felt very dizzy and he sat down and after 10 minutes again got up and when he ambulated through hallway and into the bathroom he felt like passing out , he held the sink and then sat on the commode after some time he was able to get up and then whole day he sat in the chair watching football match. Around 7 PM again he felt was feeling dizzy and then he decided come to the hospital. In the hospital initially was having some blurred vision but now he can see okay and also there was an episode when things were moving horizontally. Currently resting comfortably and alert and oriented. States he was also having imbalance while ambulating with walker. Currently d enies any headache. Vision is okay. He has no headache.Thinks there could be some ear infection, but denies any earaches. No runny nose or sore throat. No cough. Appetite is okay. No difficulty swallowing. No chest pain or shortness of breath. No nausea. No abdominal pain. Normal bowel and bladder movements. Hemodynamics are okay.Patient also had an abnormal Zio patch. Irreversible sym ptomatic sinus bradycardia.Nonsustained ventricular tachycardia on Zio patch 11/2023 during sleep. APC/PVC. 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 Seen by EP and plan for dual-chamber pacemaker on 03/16/2024. 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 Minimal nonspecific white matter changes. --Head CTA:Small vessel ischemic/degenerative changes. Cerebral and cerebellar atrophy. --Neck CTA:Multilevel cervical spine spondylotic changes with multilevel bilateral foraminal stenosis. Unremarkable CT angiography of the neck. --ECHO: Left ventricle is normal in size. Mild concentric LVH. Left ventricle wall motion is normal. EF 55 to 60%. Grade 1 diastolic dysfunction. Aortic valve is mildly calcified with mild restriction in leaflet mobility. No significant stenosis. Mild mitral annular calcification. Trace mitral and tricuspid regurgitation. -- Avoid AV betys blocking agents Appreciate cardiology, neurology input Plan for pacemaker placement tomorrow Monitor and replete electrolytes as needed N.p.o. after midnight Alcoholic cirrhosis of liver without ascites Patient says currently stopped drinking about 2 months ago Monitor for volume overload Continue thiamine, folic acid Hold home diuretics tomorrow. Resume as able Liver mass Biopsy was done in September 2022 and study was nondiagnostic Core biopsy was recommended PCP ordered repeat CT scan in October 2023 but is not done yet Needs follow-up as outpatient for further evaluation Lower extremity venous insufficiency Venous Doppler: No DVT within the right or left lower extremity. 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 No acute bleeding issues Monitor platelet count Ambulatory dysfunction Uses walker at baseline Fall precautions PT OT eval DVT prophylaxis SCDs for now Re: thrombocytopenia Code Status Full code Disposition PT OT prior to discharge Admission and Anticipated Discharge Date Admission Date: March 13, 2024 Subjective Patient is seen and examined at bedside Reports having transient dizziness overnight but none this morning Reports constipation Discussed with cardiology today Also discussed with patient's family at bedside Denies any chest pain, dyspnea, nausea, vomiting, abdominal pain Review of Systems Review of Systems: All systems reviewed & are unremarkable except as noted in Subjective Physical Exam Physical Exam: Physical Exam: Vitals signs as noted above General Appearance:Obese, no apparent distress Head: normocephalic, Atraumatic Eyes: normal inspection, EOMI Neck: supple, Trachea midline Respiratory/Chest: Normal breath sounds, CTA, No accessory muscle use Cardiovascular: S1, S2, No murmur Abdomen/GI:Soft, Non tender, Bowel sounds present Extremities/Musculoskeletal:normal inspection, 1-2+ B/L LE edema, chronic venous stasis changes Neurologic/Psych:AAOX3, grossly no focal neurological deficits Skin: normal color, warm Results & Data Results & Data Vital Signs (Past 12 Hours) Vital Signs Temp Pulse Pulse Resp BP Pulse Ox O2 Del Method 03/15/24 15:53 37.0 C 61 20 125/63 95 Room Air 03/15/24 10:23 63 17 117/55 L 96 Room Air 03/15/24 09:52 Room Air 03/15/24 08:00 60 03/15/24 07:27 36.6 C 62 19 99/59 L 93 Room Air Laboratory Results Short CBC 03/15/24 Range/Units 06:15 WBC 5.18 (4.8-10.8) K/ul Hgb 14.2 (14.0-18.0) g/dl Hct 39.9 L (42.0-52.0) % Plt Count 65 L (130-400) K/uL BMP 03/15/24 06:15 Sodium 135 L Potassium 3.9 Chloride 104 Carbon Dioxide 26 BUN 15 Creatinine 0.66 Glucose 105 H Calcium 8.4 L
[2024-03-16 06:39] LABS: Hematocrit (blood only) 39.7 % (42.0-52.0); Mean Corpuscular Hemoglobin 34.3 pg (25.0-34.0); Mean Corpuscular Hgb Conc 35.3 g/dL (32.0-36.0); Mean Corpuscular Volume 97.3 fL (80.0-100.0); Mean Platelet Volume 9.9 fL (9.4-12.4); Platelet Count 59 K/uL (130-400); RDW Coefficient of Variation 15.3 % (11.5-14.5); RDW Standard Deviation 54.9 fL (36.4-46.3); Red Blood Count 4.08 M/uL (4.70-6.10); White Blood Count 4.86 K/ul (4.8-10.8)
[2024-03-16 07:09] LABS: Albumin Level 2.3 gm/dl (3.4-5.0); BUN Creatinine Ratio 25.9 (10-20); Bilirubin Direct 0.9 mg/dl (0-0.2); Bilirubin,Total 3.3 mg/dl (0.2-1.0); Calcium 7.9 mg/dl (8.6-10.3); Creatinine Clr Calc Pharmacy 120.7 ml/min; Est GFR (African American) 110.8 ml/min; Est GFR (Non-African American) 95.6 ml/min; Magnesium 1.5 mg/dl (1.7-2.4); Potassium 4.5 mmol/L (3.5-5.1); Total Protein 4.9 gm/dl (6.0-8.3)
--- NOTE | 2024-03-16 12:21 | Cardiology Progress Note ---
Date of Service March 16, 2024 Assessment & Plan (1) Near syncope: (2) Trifascicular bundle branch block: (3) High degree atrioventricular block: Plan 83-year-old male with known conduction system disease with plan dual-chamber pacemaker insertion on 03/15/2024 admitted with episodic near syncope. EKGs and telemetry since admission intermittent high degree/third-degree AV block No acute neurologic Hemodynamically stable. No signs of fever or infection Will continue plans for pacemaker insertion on Thursday Avoid AV node blocking medications No atrial fibrillation observed 03/15/2024 Continued high degree AV block but tolerating well planned dual-chamber pacemaker in a.m. N.p.o. after midnight Will hold furosemide and spironolactone in a.m. Received MiraLAX today due to complaints of constipation 03/16/2024 Clinically stable hemodynamically. Plans for dual-chamber pacemaker later today Patient has outpatient appointment with Hepatology on Thursday Admission and Anticipated Discharge Date Admission Date: March 13, 2024 Subjective Patient seen and examined, chart, medications, telemetry reviewed. No complaints overnight Telemetry unchanged with high degree intermittent AV block N.p.o. for pacemaker later today Physical Exam Constitutional: WD/WN, vitals as above Eyes: PERRL, conjunctivae normal, anicteric sclerae ENMT: external ear and nose normal, oropharynx normal Neck: trachea midline, no thyromegaly Respiratory: normal respiratory effort, lungs clear to auscultation Cardiovascular: Rate/Rhythm: regular rate and + bradycardic Heart Sounds: normal S1 and normal S2 Extremities: no edema (Chronic stasis change) Gastrointestinal (Abdomen): normal bowel sounds, soft, nontender, no hepatosplenomegaly Results & Data Vital Signs (Past 12 Hours) Vital Signs Temp Pulse Pulse Pulse Resp BP Pulse Ox 03/16/24 11:08 63 63 16 03/16/24 09:00 62 03/16/24 07:48 36.8 C 49 L 20 124/58 L 96 03/16/24 03:10 36.7 C 56 L 19 107/63 95 O2 Del Method 03/16/24 11:08 Room Air 03/16/24 09:00 03/16/24 07:48 Room Air 03/16/24 03:10 Room Air Laboratory Results Laboratory Results - last 24 hr 03/16/24 06:05 WBC 4.86 RBC 4.08 L Hgb 14.0 Hct 39.7 L MCV 97.3 MCH 34.3 H MCHC 35.3 RDW Std Deviation 54.9 H RDW Coeff of Irene 15.3 H Plt Count 59 L MPV 9.9 Sodium 133 L Potassium 4.5 Chloride 104 Carbon Dioxide 25 Anion Gap 4 BUN 15 Creatinine 0.58 L Est Cr Clr Drug Dosing 120.7 Est GFR ( Amer) 110.8 Est GFR (Non-Af Amer) 95.6 BUN/Creatinine Ratio 25.9 H Glucose 98 Calcium 7.9 L Magnesium 1.5 L Total Bilirubin 3.3 H Direct Bilirubin 0.9 H AST 31 ALT 17 Alkaline Phosphatase 80 Total Protein 4.9 L Albumin 2.3 L
--- NOTE | 2024-03-16 12:50 | History & Physical Bridge Note ---
Date of Service March 16, 2024 History & Physical Bridge Note I have examined the patient, reviewed the History & Physical and in the interval since the performance of the History & Physical I have noted the following changes of clinical significance: pt with syncope and intermittent CHB recommended a dual chamber pacemaker; i re-discussed the procedure and potential risks with the patient he expressed an understanding and consents signed.
[2024-03-16] MEDS: BUPIVACAINE 0.25% PF 30 ML VIAL ONE (13:29)
[2024-03-16] MEDS: VANCOMYCIN HCL 1000MG/20ML VIAL ONE (13:29)
[2024-03-16] MEDS: LIDOCAINE 1% LOCAL 20 ML VIAL ONE (13:29)
[2024-03-16] MEDS: WATER, STERILE FOR INJ 10 ML VIAL ONE (13:29)
[2024-03-16] MEDS: ceFAZolin 330 MG/ML 1 GM VIAL ONE (13:30)
[2024-03-16] MEDS: MIDAZOLAM HCL 1 MG/ML 2ML VIAL ONE (13:36)
[2024-03-16] MEDS: fentaNYL citrate PF 100 MCG/2 ML VIAL ONE (14:08)
--- NOTE | 2024-03-16 14:10 | Post Anesthesia Assessment ---
Date of Service March 16, 2024 Post Sedation Assessment Vital Signs Temp Pulse Pulse Pulse Resp BP Pulse Ox 03/16/24 11:08 63 63 16 03/16/24 09:00 62 03/16/24 07:48 36.8 C 49 L 20 124/58 L 96 03/16/24 03:10 36.7 C 56 L 19 107/63 95 03/15/24 23:10 37.5 C 69 16 106/61 94 03/15/24 22:08 77 03/15/24 20:00 03/15/24 19:10 37.0 C 67 16 106/60 95 03/15/24 15:53 37.0 C 61 20 125/63 95 O2 Del Method 03/16/24 11:08 Room Air 03/16/24 09:00 03/16/24 07:48 Room Air 03/16/24 03:10 Room Air 03/15/24 23:10 Room Air 03/15/24 22:08 03/15/24 20:00 Room Air 03/15/24 19:10 Room Air 03/15/24 15:53 Room Air Recovery Score Activity: Moves 4 extremities Respiration: Deep Breath/Cough Circulation: +/-20% PreAnes Value Consciousness: Fully Awake Oxygen Saturation: > 92% On Room Air Discharge Sedation Level of Care: Fast Track Phase II Post Sedation Plan On clinical assessment, the patient appears to have tolerated the sedation without complications. Patient is recovering as anticipated. Patient will continue to be monitored by nursing and may be discharged when sedation discharge criteria are met per below protocol. Upon Completions of procedure up to 15 minutes continue every 5 minute vital signs and the P.A.R. score; then discharge to a Phase I or Fast Track to Phase II per the following guidelines: * Discharge Patient to appropriate Phase II area if PAR is 8 or greater or return to pre- procedure baseline. The post - procedure orders will be as directed. * If PAR score is less than 8 or not return to pre-procedure baseline then patient will follow Phase I monitoring till PAR is reached for Phase II. The Phase I may be done in procedure room or may call to secure a Phase I area. * If naloxone or flumazenil are used for reversal, hold in Phase I for continued monitoring from when last reversal dose was given for a minimum of 60 minutes or longer pending the nurse and/or physician discretion of patient condition before discharge to Phase II. Please call the Sedation Physician to re-evaluate and complete post-note for discharge to Phase II area. Do NOT discharge from procedure sedation or Phase 1 until post- sedation evaluation note is complete by procedure /sedation MD Sedation Discharge Instructions to be given to the patient at discharge to home.
--- NOTE | 2024-03-16 14:39 | XRay Report ---
XR chest 1V portable HISTORY: 83 years-old Male s/p ppm ensure no PTX status post placement of a left subclavian pacer COMPARISON: 03/13/2024 TECHNIQUE: AP view of the chest FINDINGS: Cardiac silhouette is enlarged. Punctate calcified granuloma of the left midlung redemonstrated. Rubber Washer tim interstitial coarsening. No pneumothorax or pleural effusion. Unchanged bibasilar densities favor ing atelectasis/scarring. Status post placement of a dual lead left subclavian pacer. Chronic left-si ded rib fractures. IMPRESSION: Status post placement of a dual-lead left subclavian pacer. No postprocedural pneumothora x identified. ACT 112: Negative or not required by law. The above report was generated using voice recognition software. It may contain grammatical, syntax o r spelling errors. Electronically signed by: Miguel Angel Harris M.D. 03/16/2024 2:38 PM
--- NOTE | 2024-03-16 14:52 | Hospitalist Progress Note ---
Date of Service March 16, 2024 Assessment & Plan (1) Near syncope: Plan: 83-year-old male with past medical history significant for venous insufficiency of both lower extremities, nonsustained ventricular tachycardia, right bundle branch, alcoholic cirrhosis of liver without ascites, history of liver mass, gout, history of alcohol use admitted with a high grade AV block. Pt is scheduled for a pacemaker today Near syncope Trifascicular block Sinus tachycardia with high degree AV block Mild troponin elevation likely demand ischemia secondary to above --MRI Brain:No evidence of acute intracranial pathology. Minimal nonspecific white matter changes. --Head CTA:Small vessel ischemic/degenerative changes. Cerebral and cerebellar atrophy. --Neck CTA:Multilevel cervical spine spondylotic changes with multilevel bilateral foraminal stenosis. Unremarkable CT angiography of the neck. --ECHO: Left ventricle is normal in size. Mild concentric LVH. Left ventricle wall motion is normal. EF 55 to 60%. Grade 1 diastolic dysfunction. Aortic valve is mildly calcified with mild restriction in leaflet mobility. No significant stenosis. Mild mitral annular calcification. Trace mitral and tricuspid regurgitation. -- Avoid AV betsy blocking agents Appreciate cardiology, neurology consultst Plan for pacemaker placement tomorrow Monitor and replete electrolytes as needed N.p.o. after midnight Alcoholic cirrhosis of liver without ascites Patient says currently stopped drinking about 2 months ago Monitor for volume overload Continue thiamine, folic acid Hold home diuretics tomorrow. Resume as able Liver mass Biopsy was done in September 2022 and study was nondiagnostic Core biopsy was recommended PCP ordered repeat CT scan in October 2023 but is not done yet Needs follow-up as outpatient for further evaluation Lower extremity venous insufficiency Venous Doppler: No DVT within the right or left lower extremity. 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 Pt seen at bedside. His spouse is present. All questions answered. Scheduled for PPM placement today. No new overnight events Telemetry unchanged with high degree intermittent AV block NPO. for pacemaker later today. He is thirsty Review of Systems Review of Systems: Constitutional- no fever; no chills Eyes- no acute visual changes ENT- no complaints Pulmonary- no cough, no wheezing, no shortness of breath Cardiac- no chest pain, GI- no nausea, no vomiting, no melena, no hematochezia - no dysuria, no hematuria Musculoskeletal- no arthralgias, no myalgias Derm- no rashes, Hematologic- no unusual bruising, no unusual bleeding Lymphatics- no adenopathy Neuro- no headaches, no focal neurologic symptoms Physical Exam Physical Exam: General- alert, elderly male sitting up in bed Head- atraumatic Eyes- PERRL, EOMI, anicteric ENT- oropharynx clear Neck- supple, no JVD, no adenopathy, no thyromegaly; Lungs- clear to auscultation and percussion Heart- regular rhythm; rate 44, Abdomen- normal bowel sounds, soft, nontender, no masses or hepatosplenomegaly Extremities- no pretibial edema, no calf tenderness; peripheral pulses intact Neuro- alert, oriented x 3; PERRL, EOMI; no focal deficits Skin- warm & dry Results & Data Results & Data Vital Signs (Past 12 Hours) Vital Signs Temp Pulse Pulse Pulse Resp BP Pulse Ox 03/16/24 14:32 86 18 128/69 95 03/16/24 14:18 80 17 125/64 98 03/16/24 11:08 63 63 16 03/16/24 09:00 62 03/16/24 07:48 36.8 C 49 L 20 124/58 L 96 03/16/24 03:10 36.7 C 56 L 19 107/63 95 O2 Del Method 03/16/24 14:32 Room Air 03/16/24 14:18 Room Air 03/16/24 11:08 Room Air 03/16/24 09:00 03/16/24 07:48 Room Air 03/16/24 03:10 Room Air Laboratory Results Laboratory Results WBC 4.86 K/ul (4.8-10.8) 03/16/24 06:05 RBC 4.08 M/uL (4.70-6.10) L 03/16/24 06:05 Hgb 14.0 g/dl (14.0-18.0) 03/16/24 06:05 Hct 39.7 % (42.0-52.0) L 03/16/24 06:05 MCV 97.3 fL (80.0-100.0) 03/16/24 06:05 MCH 34.3 pg (25.0-34.0) H 03/16/24 06:05 MCHC 35.3 g/dL (32.0-36.0) 03/16/24 06:05 RDW Std Deviation 54.9 fL (36.4-46.3) H 03/16/24 06:05 RDW Coeff of Irene 15.3 % (11.5-14.5) H 03/16/24 06:05 Plt Count 59 K/uL (130-400) L 03/16/24 06:05 MPV 9.9 fL (9.4-12.4) 03/16/24 06:05 Immature Gran % (Auto) 0.4 % 03/14/24 05:29 Neut % (Auto) 67.5 % 03/14/24 05:29 Lymph % (Auto) 16.6 % 03/14/24 05:29 [place] % (Auto) 12.0 % 03/14/24 05:29 Eos % (Auto) 3.0 % 03/14/24 05:29 Baso % (Auto) 0.5 % 03/14/24 05:29 Neut # (Auto) 3.77 K/uL (1.40-6.50) 03/14/24 05:29 Lymph # (Auto) 0.93 K/uL (1.20-3.40) L 03/14/24 05:29 [place] # (Auto) 0.67 K/uL (0.11-0.59) H 03/14/24 05:29 Eos # (Auto) 0.17 K/uL (0.00-0.50) 03/14/24 05:29 Baso # (Auto) 0.03 K/uL (0.00-0.20) 03/14/24 05:29 Immature Gran # (Auto) 0.02 K/uL (0.01-0.20) 03/14/24 05:29 Sodium 133 mmol/L (136-145) L 03/16/24 06:05 Potassium 4.5 mmol/L (3.5-5.1) 03/16/24 06:05 Chloride 104 mmol/L (98-107) 03/16/24 06:05 Carbon Dioxide 25 mmol/L (21-32) 03/16/24 06:05 Anion Gap 4 (3-11) 03/16/24 06:05 BUN 15 mg/dl (6-23) 03/16/24 06:05 Creatinine 0.58 mg/dl (0.6-1.4) L 03/16/24 06:05 Est Cr Clr Drug Dosing 120.7 ml/min 03/16/24 06:05 Est GFR ( Amer) 110.8 ml/min 03/16/24 06:05 Est GFR (Non-Af Amer) 95.6 ml/min 03/16/24 06:05 BUN/Creatinine Ratio 25.9 (10-20) H 03/16/24 06:05 Glucose 98 mg/dl (70-99(Fasting)) 03/16/24 06:05 Calcium 7.9 mg/dl (8.6-10.3) L 03/16/24 06:05 Magnesium 1.5 mg/dl (1.7-2.4) L 03/16/24 06:05 Total Bilirubin 3.3 mg/dl (0.2-1.0) H 03/16/24 06:05 Direct Bilirubin 0.9 mg/dl (0-0.2) H 03/16/24 06:05 AST 31 U/L (13-39) 03/16/24 06:05 ALT 17 U/L (7-52) 03/16/24 06:05 Alkaline Phosphatase 80 U/L (34-104) 03/16/24 06:05 Troponin I High Sens 61.7 pg/ml (0-20) H* 03/14/24 16:57 Total Protein 4.9 gm/dl (6.0-8.3) L 03/16/24 06:05 Albumin 2.3 gm/dl (3.4-5.0) L 03/16/24 06:05 Globulin 2.9 gm/dl (2.5-4.0) 03/13/24 22:31 Albumin/Globulin Ratio 0.9 (0.9-2) 03/13/24 22:31 Lipase 45 U/L (11-82) 03/13/24 22:31 Impressions Brain MRI 03/14/24 03:22 Exam(s): MRI HEAD W/WO Contrast IV Amt: 9.5cc gadavist EXAM: MR Head Without and With Intravenous Contrast CLINICAL HISTORY: Reason for exam: dizziness, imbalance. TECHNIQUE: Magnetic resonance images of the head/brain without and with intravenous contrast in multiple planes. CONTRAST: Patient received 9.5cc gadavist of IV contrast COMPARISON: Prior head CT from January 20, 2024. FINDINGS: Brain: Minimal nonspecific white matter changes. The flow voids of the base the brain are intact. No mass. No hemorrhage. No acute infarct. Normal enhancement of brain parenchyma. The dural venous sinuses are patent. Ventricles: Moderate ventriculomegaly. Bones/joints: Moderate to advanced facet arthropathy at C2-3 and C3-4. No acute fracture. Sinuses: Chronic ethmoid sinusitis. No acute sinusitis. Mastoid air cells: To mild fluid in the right mastoid air cells. No mastoid effusion. Orbits: Bilateral lens replacements. IMPRESSION: No evidence of acute intracranial pathology. Minimal nonspecific white matter changes. Electronically signed by: Juliette Scott MD 03/14/24 05:13 AM Head CTA 03/14/24 03:22 Exam(s): CTA HEAD With Contrast IV Amt: 118 ML OPTIRAY 320 EXAM: CT Angiography Head With Intravenous Contrast CLINICAL HISTORY: Reason for exam: dizziness, nausea. TECHNIQUE: Axial computed tomographic angiography images of the head with intravenous contrast. CTDI is 14.2 mGy and DLP is 576.8 mGy-cm. Automated exposure control was utilized for the study. A dose lowering technique was utilized adhering to the principles of ALARA. MIP reconstructed images were created and reviewed. CONTRAST: Patient received 118 ML OPTIRAY 320 of IV contrast COMPARISON: Noncontrast CT head January 20, 2024 FINDINGS: Right internal carotid artery: No acute findings. Intracranial segment is patent with no significant stenosis. No aneurysm. Right anterior cerebral artery: Unremarkable. No occlusion or significant stenosis. No aneurysm. Right middle cerebral artery: Unremarkable. No occlusion or significant stenosis. No aneurysm. Right posterior cerebral artery: Unremarkable. No occlusion or significant stenosis. No aneurysm. Right vertebral artery: Unremarkable as visualized. Left internal carotid artery: No acute findings. Intracranial segment is patent with no significant stenosis. No aneurysm. Left anterior cerebral artery: Unremarkable. No occlusion or significant stenosis. No aneurysm. Left middle cerebral artery: Unremarkable. No occlusion or significant stenosis. No aneurysm. Left posterior cerebral artery: Unremarkable. No occlusion or significant stenosis. No aneurysm. Left vertebral artery: Unremarkable as visualized. Basilar artery: Unremarkable. No occlusion or significant stenosis. No aneurysm. Other vasculature: Atherosclerotic disease. Brain: Areas of decreased attenuation in the deep cerebral white matter are consistent with small vessel ischemic/degenerative changes. The cerebral and cerebellar sulci are prominent consistent with brain atrophy. Anatomic variant posterior inferior cerebellar artery continuation of the distal right vertebral. IMPRESSION: 1. Small vessel ischemic/degenerative changes. 2. Cerebral and cerebellar atrophy. Electronically signed by: Abhay Bedolla MD 03/14/24 04:31 AM Neck CTA 03/14/24 03:22 Exam(s): CTA NECK With Contrast IV Amt: 118 ML OPTIRAY 320 EXAM: CT Angiography Neck With Intravenous Contrast CLINICAL HISTORY: Reason for exam: dizziness, nausea. TECHNIQUE: Routine carotid CT angiography protocol was performed with intravenous contrast. NASCET criteria using the distal ICAs for comparison were used for evaluation of stenoses. CTDI is 14.18 mGy and DLP is 576.84 mGy-cm. Automated exposure control was utilized for the study. A dose lowering technique was utilized adhering to the principles of ALARA. MIP reconstructed images were created and reviewed. CONTRAST: Patient received 118 ML OPTIRAY 320 of IV contrast COMPARISON: None. FINDINGS: VASCULATURE: Right common carotid artery: Unremarkable. No occlusion or significant stenosis. No dissection. Right internal carotid artery: Unremarkable. Mild calcific plaquing at the origin. Extracranial segment is patent with no occlusion or significant stenosis. No dissection. Right external carotid artery: Unremarkable. No occlusion. Right vertebral artery: Unremarkable. No occlusion or significant stenosis. No dissection. Left common carotid artery: Unremarkable. No occlusion or significant stenosis. No dissection. Left internal carotid artery: Unremarkable. Mild calcific plaquing at the origin. Extracranial segment is patent with no occlusion or significant stenosis. No dissection. Left external carotid artery: Unremarkable. No occlusion. Left vertebral artery: Unremarkable. No occlusion or significant stenosis. No dissection. 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 Soft tissues: Unremarkable. Lung apices: Upper lung emphysema. CAROTID STENOSIS REFERENCE USING NASCET CRITERIA: % ICA stenosis = (1 - narrowest ICA diameter/diameter of distal cervical ICA) x 100. Mild - <50% stenosis. Moderate - 50-69% stenosis. Severe - 70-94% stenosis. Near occlusion - 95-99% stenosis. Occluded - 100% stenosis. IMPRESSION: 1. Upper lung emphysema. 2. 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 3. Unremarkable CT angiography of the neck. Electronically signed by: Abhay Bedolla MD 03/14/24 04:35 AM Venous Doppler Study 03/14/24 08:38 BILATERAL LOWER EXTREMITY VENOUS DOPPLER HISTORY: Acute pain and swelling of the lower legs b/l lower ext edema. dvt? COMPARISON STUDY: None. FINDINGS: Subcutaneous edema. There is normal compressibility, flow, and augmentation within the bilateral lower extremity deep venous systems. IMPRESSION: No DVT within the right or left lower extremity. ACT 112: Negative or not required by law. Electronically signed by: Miguel Angel Harris M.D. 03/14/2024 3:42 PM Chest X-Ray 03/16/24 16:00 XR chest 1V portable HISTORY: 83 years-old Male s/p ppm ensure no PTX status post placement of a left subclavian pacer COMPARISON: 03/13/2024 TECHNIQUE: AP view of the chest FINDINGS: Cardiac silhouette is enlarged. Punctate calcified granuloma of the left midlung redemonstrated. Chronic interstitial coarsening. No pneumothorax or pleural effusion. Unchanged bibasilar densities favoring atelectasis/scarring. Status post placement of a dual lead left subclavian pacer. Chronic left-sided rib fractures. IMPRESSION: Status post placement of a dual-lead left subclavian pacer. No postprocedural pneumothorax identified. ACT 112: Negative or not required by law. The above report was generated using voice recognition software. It may contain grammatical, syntax or spelling errors. Electronically signed by: Miguel Angel Harris M.D. 03/16/2024 2:38 PM
[2024-03-16] MEDS: TRIAMCINOLONE ACET 0.5% CR 15 GM TUBE TOP PRN (15:01)
[2024-03-17 07:43] LABS: Hematocrit (blood only) 39.1 % (42.0-52.0); Hemoglobin 13.4 g/dl (14.0-18.0); Mean Corpuscular Hemoglobin 33.8 pg (25.0-34.0); Mean Corpuscular Hgb Conc 34.3 g/dL (32.0-36.0); Mean Corpuscular Volume 98.7 fL (80.0-100.0); Mean Platelet Volume 10.1 fL (9.4-12.4); Platelet Count 67 K/uL (130-400); RDW Coefficient of Variation 15.8 % (11.5-14.5); Red Blood Count 3.96 M/uL (4.70-6.10); White Blood Count 4.84 K/ul (4.8-10.8)
[2024-03-17 08:02] LABS: BUN Creatinine Ratio 28.8 (10-20); Calcium 8.3 mg/dl (8.6-10.3); Creatinine Clr Calc Pharmacy 135.3 ml/min; Est GFR (African American) 115.9 ml/min; Potassium 4.4 mmol/L (3.5-5.1)
--- NOTE | 2024-03-17 10:12 | Cardiology Progress Note ---
Date of Service March 17, 2024 Assessment & Plan (1) Near syncope: (2) Trifascicular bundle branch block: (3) High degree atrioventricular block: Plan 83-year-old male with known conduction system disease with plan dual-chamber pacemaker insertion on 03/15/2024 admitted with episodic near syncope. EKGs and telemetry since admission intermittent high degree/third-degree AV block No acute neurologic Hemodynamically stable. No signs of fever or infection Will continue plans for pacemaker insertion on Thursday Avoid AV node blocking medications No atrial fibrillation observed 03/15/2024 Continued high degree AV block but tolerating well planned dual-chamber pacemaker in a.m. N.p.o. after midnight Will hold furosemide and spironolactone in a.m. Received MiraLAX today due to complaints of constipation 03/16/2024 Clinically stable hemodynamically. Plans for dual-chamber pacemaker later today Patient has outpatient appointment with Hepatology on Thursday03/17/2024 Clinically improved 1. Trifascicular heart block/high degree AV block status post dual-chamber pacemaker. Normal device function on telemetry will interrogate formally Recommendation: Increase activity, stable for cardiac discharge 2. Hepatic cirrhosis/mass planned hepatology appointment tomorrow Admission and Anticipated Discharge Date Admission Date: March 13, 2024 Subjective Patient was seen and examined, chart, medications, telemetry reviewed. Patient denies any complaints mild tenderness at pacemaker insertion site. By telemetry device functioning appropriately. Physical Exam Constitutional: WD/WN, vitals as above Eyes: PERRL, conjunctivae normal, anicteric sclerae ENMT: external ear and nose normal, oropharynx normal Neck: trachea midline, no thyromegaly Respiratory: normal respiratory effort, lungs clear to auscultation Cardiovascular: Rate/Rhythm: regular rate and + bradycardic Heart Sounds: normal S1 and normal S2 Extremities: no edema (Chronic stasis change) Gastrointestinal (Abdomen): normal bowel sounds, soft, nontender, no hepatosplenomegaly Results & Data Vital Signs (Past 12 Hours) Vital Signs Temp Pulse Resp BP Pulse Ox O2 Del Method 03/17/24 07:43 36.3 C L 75 19 128/70 94 Room Air 03/17/24 02:42 36.6 C 80 16 131/76 95 Room Air 03/16/24 23:15 36.7 C 89 20 116/56 L 95 Room Air Laboratory Results Laboratory Results - last 24 hr 03/17/24 06:43 WBC 4.84 RBC 3.96 L Hgb 13.4 L Hct 39.1 L MCV 98.7 MCH 33.8 MCHC 34.3 RDW Std Deviation 57.0 H RDW Coeff of Irene 15.8 H Plt Count 67 L MPV 10.1 Sodium 133 L Potassium 4.4 Chloride 105 Carbon Dioxide 23 Anion Gap 5 BUN 15 Creatinine 0.52 L Est Cr Clr Drug Dosing 135.3 Est GFR ( Amer) 115.9 Est GFR (Non-Af Amer) 100.0 BUN/Creatinine Ratio 28.8 H Glucose 89 Calcium 8.3 L
--- NOTE | 2024-03-17 17:12 | Hospitalist Progress Note ---
Date of Service March 17, 2024 Assessment & Plan (1) Near syncope: Plan: 83-year-old male with past medical history significant for venous insufficiency of both lower extremities, nonsustained ventricular tachycardia, right bundle branch, alcoholic cirrhosis of liver without ascites, history of liver mass, gout, history of alcohol use admitted with a high grade AV block. Pt is POD #1 PPM Near syncope Trifascicular block Sinus tachycardia with high degree AV block Mild troponin elevation likely demand ischemia secondary to above --MRI Brain:No evidence of acute intracranial pathology. Minimal nonspecific white matter changes. --Head CTA:Small vessel ischemic/degenerative changes. Cerebral and cerebellar atrophy. --Neck CTA:Multilevel cervical spine spondylotic changes with multilevel bilateral foraminal stenosis. Unremarkable CT angiography of the neck. --ECHO: Left ventricle is normal in size. Mild concentric LVH. Left ventricle wall motion is normal. EF 55 to 60%. Grade 1 diastolic dysfunction. Aortic valve is mildly calcified with mild restriction in leaflet mobility. No significant stenosis. Mild mitral annular calcification. Trace mitral and tricuspid regurgitation. -- Avoid AV betsy blocking agents Appreciate cardiology, neurology consults Stable POD #1 pacemaker placement w Monitor and replete electrolytes as needed Pt is still unsteady post op and needs 1-2 person assist Alcoholic cirrhosis of liver without ascites Patient says currently stopped drinking about 2 months ago Monitor for volume overload Continue thiamine, folic acid Liver mass Biopsy was done in September 2022 and study was nondiagnostic Core biopsy was recommended PCP ordered repeat CT scan in October 2023 but is not done yet Needs follow-up as outpatient for further evaluation Lower extremity venous insufficiency Venous Doppler: No DVT within the right or left lower extremity. 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 Patient will likely need a rehab stay Admission and Anticipated Discharge Date Admission Date: March 13, 2024 Subjective Patient was seen and examined, chart, MARs, telemetry reviewed. Patient denies any complaints mild tenderness at pacemaker insertion site. By telemetry device functioning appropriately. His son is present. Still requiring 1-2 person assist. PT feels the pt not safe for home yet He denies CP or SOB. No [place], fever or chills Physical Exam Physical Exam: General- alert, elderly male sitting up in bed Head- atraumatic Eyes- PERRL, EOMI, anicteric ENT- oropharynx clear Neck- supple, no JVD, no adenopathy, no thyromegaly; Lungs- clear to auscultation and percussion Heart- regular rhythm; rate 44, Abdomen- normal bowel sounds, soft, nontender, no masses or hepatosplenomegaly Extremities- no pretibial edema, no calf tenderness; peripheral pulses intact Neuro- alert, oriented x 3; PERRL, EOMI; no focal deficits Skin- warm & dry, Dressing intact left upper chest Results & Data Results & Data Vital Signs (Past 12 Hours) Vital Signs Temp Pulse Resp BP Pulse Ox O2 Del Method 03/17/24 15:01 36.3 C L 78 18 114/66 96 Room Air 03/17/24 11:31 36.9 C 82 18 113/71 96 Room Air 03/17/24 07:43 36.3 C L 75 19 128/70 94 Room Air Diagnostic Findings Laboratory Results WBC 4.84 K/ul (4.8-10.8) 03/17/24 06:43 RBC 3.96 M/uL (4.70-6.10) L 03/17/24 06:43 Hgb 13.4 g/dl (14.0-18.0) L 03/17/24 06:43 Hct 39.1 % (42.0-52.0) L 03/17/24 06:43 MCV 98.7 fL (80.0-100.0) 03/17/24 06:43 MCH 33.8 pg (25.0-34.0) 03/17/24 06:43 MCHC 34.3 g/dL (32.0-36.0) 03/17/24 06:43 RDW Std Deviation 57.0 fL (36.4-46.3) H 03/17/24 06:43 RDW Coeff of Irene 15.8 % (11.5-14.5) H 03/17/24 06:43 Plt Count 67 K/uL (130-400) L 03/17/24 06:43 MPV 10.1 fL (9.4-12.4) 03/17/24 06:43 Immature Gran % (Auto) 0.4 % 03/14/24 05:29 Neut % (Auto) 67.5 % 03/14/24 05:29 Lymph % (Auto) 16.6 % 03/14/24 05:29 [place] % (Auto) 12.0 % 03/14/24 05:29 Eos % (Auto) 3.0 % 03/14/24 05:29 Baso % (Auto) 0.5 % 03/14/24 05:29 Neut # (Auto) 3.77 K/uL (1.40-6.50) 03/14/24 05:29 Lymph # (Auto) 0.93 K/uL (1.20-3.40) L 03/14/24 05:29 [place] # (Auto) 0.67 K/uL (0.11-0.59) H 03/14/24 05:29 Eos # (Auto) 0.17 K/uL (0.00-0.50) 03/14/24 05: Baso # (Auto) 0.03 K/uL (0.00-0.20) 03/14/24 05:29 Immature Gran # (Auto) 0.02 K/uL (0.01-0.20) 03/14/24 05:29 Sodium 133 mmol/L (136-145) L 03/17/24 06:43 Potassium 4.4 mmol/L (3.5-5.1) 03/17/24 06:43 Chloride 105 mmol/L (98-107) 03/17/24 06:43 Carbon Dioxide 23 mmol/L (21-32) 03/17/24 06:43 Anion Gap 5 (3-11) 03/17/24 06:43 BUN 15 mg/dl (6-23) 03/17/24 06:43 Creatinine 0.52 mg/dl (0.6-1.4) L 03/17/24 06:43 Est Cr Clr Drug Dosing 135.3 ml/min 03/17/24 06:43 Est GFR ( Amer) 115.9 ml/min 03/17/24 06:43 Est GFR (Non-Af Amer) 100.0 ml/min 03/17/24 06:43 BUN/Creatinine Ratio 28.8 (10-20) H 03/17/24 06:43 Glucose 89 mg/dl (70-99(Fasting)) 03/17/24 06:43 Calcium 8.3 mg/dl (8.6-10.3) L 03/17/24 06:43 Magnesium 1.5 mg/dl (1.7-2.4) L 03/16/24 06:05 Total Bilirubin 3.3 mg/dl (0.2-1.0) H 03/16/24 06:05 Direct Bilirubin 0.9 mg/dl (0-0.2) H 03/16/24 06:05 AST 31 U/L (13-39) 03/16/24 06:05 ALT 17 U/L (7-52) 03/16/24 06:05 Alkaline Phosphatase 80 U/L (34-104) 03/16/24 06:05 Troponin I High Sens 61.7 pg/ml (0-20) H* 03/14/24 16:57 Total Protein 4.9 gm/dl (6.0-8.3) L 03/16/24 06:05 Albumin 2.3 gm/dl (3.4-5.0) L 03/16/24 06:05 Globulin 2.9 gm/dl (2.5-4.0) 03/13/24 22:31 Albumin/Globulin Ratio 0.9 (0.9-2) 03/13/24 22:31 Lipase 45 U/L (11-82) 03/13/24 22:31 Impressions Brain MRI 03/14/24 03:22 Exam(s): MRI HEAD W/WO Contrast IV Amt: 9.5cc gadavist EXAM: MR Head Without and With Intravenous Contrast CLINICAL HISTORY: Reason for exam: dizziness, imbalance. TECHNIQUE: Magnetic resonance images of the head/brain without and with intravenous contrast in multiple planes. CONTRAST: Patient received 9.5cc gadavist of IV contrast COMPARISON: Prior head CT from January 20, 2024. FINDINGS: Brain: Minimal nonspecific white matter changes. The flow voids of the base the brain are intact. No mass. No hemorrhage. No acute infarct. Normal enhancement of brain parenchyma. The dural venous sinuses are patent. Ventricles: Moderate ventriculomegaly. Bones/joints: Moderate to advanced facet arthropathy at C2-3 and C3-4. No acute fracture. Sinuses: Chronic ethmoid sinusitis. No acute sinusitis. Mastoid air cells: To mild fluid in the right mastoid air cells. No mastoid effusion. Orbits: Bilateral lens replacements. IMPRESSION: No evidence of acute intracranial pathology. Minimal nonspecific white matter changes. Electronically signed by: Juliette Scott MD 03/14/24 05:13 AM Head CTA 03/14/24 03:22 Exam(s): CTA HEAD With Contrast IV Amt: 118 ML OPTIRAY 320 EXAM: CT Angiography Head With Intravenous Contrast CLINICAL HISTORY: Reason for exam: dizziness, nausea. TECHNIQUE: Axial computed tomographic angiography images of the head with intravenous contrast. CTDI is 14.2 mGy and DLP is 576.8 mGy-cm. Automated exposure control was utilized for the study. A dose lowering technique was utilized adhering to the principles of ALARA. MIP reconstructed images were created and reviewed. CONTRAST: Patient received 118 ML OPTIRAY 320 of IV contrast COMPARISON: Noncontrast CT head January 20, 2024 FINDINGS: Right internal carotid artery: No acute findings. Intracranial segment is patent with no significant stenosis. No aneurysm. Right anterior cerebral artery: Unremarkable. No occlusion or significant stenosis. No aneurysm. Right middle cerebral artery: Unremarkable. No occlusion or significant stenosis. No aneurysm. Right posterior cerebral artery: Unremarkable. No occlusion or significant stenosis. No aneurysm. Right vertebral artery: Unremarkable as visualized. Left internal carotid artery: No acute findings. Intracranial segment is patent with no significant stenosis. No aneurysm. Left anterior cerebral artery: Unremarkable. No occlusion or significant stenosis. No aneurysm. Left middle cerebral artery: Unremarkable. No occlusion or significant stenosis. No aneurysm. Left posterior cerebral artery: Unremarkable. No occlusion or significant stenosis. No aneurysm. Left vertebral artery: Unremarkable as visualized. Basilar artery: Unremarkable. No occlusion or significant stenosis. No aneurysm. Other vasculature: Atherosclerotic disease. Brain: Areas of decreased attenuation in the deep cerebral white matter are consistent with small vessel ischemic/degenerative changes. The cerebral and cerebellar sulci are prominent consistent with brain atrophy. Anatomic variant posterior inferior cerebellar artery continuation of the distal right vertebral. IMPRESSION: 1. Small vessel ischemic/degenerative changes. 2. Cerebral and cerebellar atrophy. Electronically signed by: Abhay Bedolla MD 03/14/24 04:31 AM Neck CTA 03/14/24 03:22 Exam(s): CTA NECK With Contrast IV Amt: 118 ML OPTIRAY 320 EXAM: CT Angiography Neck With Intravenous Contrast CLINICAL HISTORY: Reason for exam: dizziness, nausea. TECHNIQUE: Routine carotid CT angiography protocol was performed with intravenous contrast. NASCET criteria using the distal ICAs for comparison were used for evaluation of stenoses. CTDI is 14.18 mGy and DLP is 576.84 mGy-cm. Automated exposure control was utilized for the study. A dose lowering technique was utilized adhering to the principles of ALARA. MIP reconstructed images were created and reviewed. CONTRAST: Patient received 118 ML OPTIRAY 320 of IV contrast COMPARISON: None. FINDINGS: VASCULATURE: Right common carotid artery: Unremarkable. No occlusion or significant stenosis. No dissection. Right internal carotid artery: Unremarkable. Mild calcific plaquing at the origin. Extracranial segment is patent with no occlusion or significant stenosis. No dissection. Right external carotid artery: Unremarkable. No occlusion. Right vertebral artery: Unremarkable. No occlusion or significant stenosis. No dissection. Left common carotid artery: Unremarkable. No occlusion or significant stenosis. No dissection. Left internal carotid artery: Unremarkable. Mild calcific plaquing at the origin. Extracranial segment is patent with no occlusion or significant stenosis. No dissection. Left external carotid artery: Unremarkable. No occlusion. Left vertebral artery: Unremarkable. No occlusion or significant stenosis. No dissection. 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 Soft tissues: Unremarkable. Lung apices: Upper lung emphysema. CAROTID STENOSIS REFERENCE USING NASCET CRITERIA: % ICA stenosis = (1 - narrowest ICA diameter/diameter of distal cervical ICA) x 100. Mild - <50% stenosis. Moderate - 50-69% stenosis. Severe - 70-94% stenosis. Near occlusion - 95-99% stenosis. Occluded - 100% stenosis. IMPRESSION: 1. Upper lung emphysema. 2. 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 3. Unremarkable CT angiography of the neck. Electronically signed by: Abhay Bedolla MD 03/14/24 04:35 AM Venous Doppler Study 03/14/24 08:38 BILATERAL LOWER EXTREMITY VENOUS DOPPLER HISTORY: Acute pain and swelling of the lower legs b/l lower ext edema. dvt? COMPARISON STUDY: None. FINDINGS: Subcutaneous edema. There is normal compressibility, flow, and augmentation within the bilateral lower extremity deep venous systems. IMPRESSION: No DVT within the right or left lower extremity. ACT 112: Negative or not required by law. Electronically signed by: Miguel Angel Harris M.D. 03/14/2024 3:42 PM Chest X-Ray 03/16/24 16:00 XR chest 1V portable HISTORY: 83 years-old Male s/p ppm ensure no PTX status post placement of a left subclavian pacer COMPARISON: 03/13/2024 TECHNIQUE: AP view of the chest FINDINGS: Cardiac silhouette is enlarged. Punctate calcified granuloma of the left midlung redemonstrated. Chronic interstitial coarsening. No pneumothorax or pleural effusion. Unchanged bibasilar densities favoring atelectasis/scarring. Status post placement of a dual lead left subclavian pacer. Chronic left-sided rib fractures. IMPRESSION: Status post placement of a dual-lead left subclavian pacer. No postprocedural pneumothorax identified. ACT 112: Negative or not required by law. The above report was generated using voice recognition software. It may contain grammatical, syntax or spelling errors. Electronically signed by: Miguel Angel Harris M.D. 03/16/2024 2:38 PM
[2024-03-18 06:24] LABS: Hemoglobin 13.2 g/dl (14.0-18.0); Mean Corpuscular Hemoglobin 33.9 pg (25.0-34.0); Mean Corpuscular Hgb Conc 34.7 g/dL (32.0-36.0); Mean Corpuscular Volume 97.7 fL (80.0-100.0); Mean Platelet Volume 9.9 fL (9.4-12.4); Platelet Count 51 K/uL (130-400); RDW Coefficient of Variation 15.7 % (11.5-14.5); RDW Standard Deviation 55.8 fL (36.4-46.3); Red Blood Count 3.89 M/uL (4.70-6.10); White Blood Count 4.59 K/ul (4.8-10.8)
[2024-03-18 06:50] LABS: BUN Creatinine Ratio 26.4 (10-20); Calcium 8.3 mg/dl (8.6-10.3); Creatinine Clr Calc Pharmacy 132.8 ml/min; Est GFR (Non-African American) 99.2 ml/min; Magnesium 1.6 mg/dl (1.7-2.4); Potassium 4.4 mmol/L (3.5-5.1)
--- NOTE | 2024-03-18 13:52 | Cardiology Progress Note ---
Date of Service March 18, 2024 Assessment & Plan (1) Near syncope: (2) Trifascicular bundle branch block: (3) High degree atrioventricular block: Plan 83-year-old male with known conduction system disease with plan dual-chamber pacemaker insertion on 03/15/2024 admitted with episodic near syncope. EKGs and telemetry since admission intermittent high degree/third-degree AV block No acute neurologic Hemodynamically stable. No signs of fever or infection Will continue plans for pacemaker insertion on Thursday Avoid AV node blocking medications No atrial fibrillation observed 03/15/2024 Continued high degree AV block but tolerating well planned dual-chamber pacemaker in a.m. N.p.o. after midnight Will hold furosemide and spironolactone in a.m. Received MiraLAX today due to complaints of constipation 03/16/2024 Clinically stable hemodynamically. Plans for dual-chamber pacemaker later today Patient has outpatient appointment with Hepatology on Thursday03/17/2024 Clinically improved 1. Trifascicular heart block/high degree AV block status post dual-chamber pacemaker. Normal device function on telemetry will interrogate formally Recommendation: Increase activity, stable for cardiac discharge 2. Hepatic cirrhosis/mass planned hepatology appointment tomorrow 03/18/2024 Pacer site healing well. Functioning appropriately on telemetry. No change in cardiac symptom but fatigued still with some gait instability Agree with rehab Will sign off contact with Admission and Anticipated Discharge Date Admission Date: March 13, 2024 Subjective Patient seen and examined, chart, telemetry reviewed. No arrhythmias on telemetry with normal device function. Heart rate and blood pressure well- controlled Physical Exam Constitutional: WD/WN, vitals as above Eyes: PERRL, conjunctivae normal, anicteric sclerae ENMT: external ear and nose normal, oropharynx normal Neck: trachea midline, no thyromegaly Respiratory: normal respiratory effort, lungs clear to auscultation Cardiovascular: Rate/Rhythm: regular rate and + bradycardic Heart Sounds: normal S1 and normal S2 Extremities: no edema (Chronic stasis change) Gastrointestinal (Abdomen): normal bowel sounds, soft, nontender, no hepatosplenomegaly Results & Data Vital Signs (Past 12 Hours) Vital Signs Temp Pulse Pulse Resp BP Pulse Ox O2 Del Method 03/18/24 10:56 36.4 C L 83 18 122/70 96 Room Air 03/18/24 08:39 Room Air 03/18/24 07:50 83 03/18/24 07:44 36.6 C 87 18 131/75 93 Room Air 03/18/24 03:15 36.5 C 88 18 124/59 L 91 Room Air Laboratory Results Laboratory Results - last 24 hr 03/18/24 06:06 WBC 4.59 L RBC 3.89 L Hgb 13.2 L Hct 38.0 L MCV 97.7 MCH 33.9 MCHC 34.7 RDW Std Deviation 55.8 H RDW Coeff of Irene 15.7 H Plt Count 51 L MPV 9.9 Sodium 133 L Potassium 4.4 Chloride 106 Carbon Dioxide 23 Anion Gap 4 BUN 14 Creatinine 0.53 L Est Cr Clr Drug Dosing 132.8 Est GFR ( Amer) 115.0 Est GFR (Non-Af Amer) 99.2 BUN/Creatinine Ratio 26.4 H Glucose 98 Calcium 8.3 L Magnesium 1.6 L
--- NOTE | 2024-03-18 15:34 | Hospitalist Progress Note ---
Date of Service March 18, 2024 Assessment & Plan (1) Near syncope: Plan: 83-year-old male with past medical history significant for venous insufficiency of both lower extremities, nonsustained ventricular tachycardia, right bundle branch, alcoholic cirrhosis of liver without ascites, history of liver mass, gout, history of alcohol use admitted with a high grade AV block. Pt is POD #2 PPM Near syncope Trifascicular block Sinus tachycardia with high degree AV block Mild troponin elevation likely demand ischemia secondary to above --MRI Brain:No evidence of acute intracranial pathology. Minimal nonspecific white matter changes. --Head CTA:Small vessel ischemic/degenerative changes. Cerebral and cerebellar atrophy. --Neck CTA:Multilevel cervical spine spondylotic changes with multilevel bilateral foraminal stenosis. Unremarkable CT angiography of the neck. --ECHO: Left ventricle is normal in size. Mild concentric LVH. Left ventricle wall motion is normal. EF 55 to 60%. Grade 1 diastolic dysfunction. Aortic valve is mildly calcified with mild restriction in leaflet mobility. No significant stenosis. Mild mitral annular calcification. Trace mitral and tricuspid regurgitation. -- Avoid AV betsy blocking agents Cardiology, neurology consulted Stable POD #2 pacemaker placement w Monitor and replete electrolytes as needed Pt is still unsteady post op and needs 1-2 person assist. Patient will need a rehab stay. He is excepted at her side and we are awaiting insurance authorization Alcoholic cirrhosis of liver without ascites Patient says currently stopped drinking about 2 months ago Monitor for volume overload Continue thiamine, folic acid Liver mass Biopsy was done in September 2022 and study was nondiagnostic Core biopsy was recommended PCP ordered repeat CT scan in October 2023 but is not done yet Needs follow-up as outpatient for further evaluation Lower extremity venous insufficiency Venous Doppler: No DVT within the right or left lower extremity. 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 No acute bleeding issues Monitor platelet count, usually in the 50-60 range Ambulatory dysfunction Uses walker at baseline Fall precautions PT OT eval noted, patient needs rehab stay DVT prophylaxis SCDs for now Re: thrombocytopenia Code Status Full code Disposition Continue PT OT. Patient will likely need a rehab stay Admission and Anticipated Discharge Date Admission Date: March 13, 2024 Subjective Patient seen and examined, chart, telemetry and 24-hour vital signs reviewed. No arrhythmias on telemetry with normal device function. Heart rate and blood pressure well-controlled Patient seen at bedside with staff present PT and OT evaluations noted. Patient is still extremely weak and requires hermelindo tance with transfers. He denies chest pain or shortness of breath. He has minimal incisional pain No nausea or vomiting No headache, fever or chills Remainder of the review systems are negative or noncontributory Physical Exam Physical Exam: General- alert, elderly male sitting up in bed Head- atraumatic Eyes- PERRL, EOMI, anicteric ENT- oropharynx clear Neck- supple, no JVD, no adenopathy, no thyromegaly; Lungs- clear to auscultation and percussion Heart- regular rhythm; rate 68, monitor shows a paced rhythm Abdomen- normal bowel sounds, soft, nontender, no masses or hepatosplenomegaly Extremities- no pretibial edema, no calf tenderness; peripheral pulses intact Neuro- alert, oriented x 2; PERRL, EOMI; no focal deficits Skin- warm & dry, Dressing intact left upper chest Results & Data Results & Data Vital Signs (Past 12 Hours) Vital Signs Temp Pulse Pulse Resp BP Pulse Ox O2 Del Method 03/18/24 14:57 94 H 03/18/24 10:56 36.4 C L 83 18 122/70 96 Room Air 03/18/24 08:39 Room Air 03/18/24 07:50 83 03/18/24 07:44 36.6 C 87 18 131/75 93 Room Air Laboratory Results Short CBC 03/18/24 Range/Units 06:06 WBC 4.59 L (4.8-10.8) K/ul Hgb 13.2 L (14.0-18.0) g/dl Hct 38.0 L (42.0-52.0) % Plt Count 51 L (130-400) K/uL BMP 03/18/24 06:06 Sodium 133 L Potassium 4.4 Chloride 106 Carbon Dioxide 23 BUN 14 Creatinine 0.53 L Glucose 98 Calcium 8.3 L
[2024-03-19 06:54] LABS: Hematocrit (blood only) 37.9 % (42.0-52.0); Hemoglobin 13.1 g/dl (14.0-18.0); Mean Corpuscular Hemoglobin 33.9 pg (25.0-34.0); Mean Corpuscular Hgb Conc 34.6 g/dL (32.0-36.0); Mean Corpuscular Volume 97.9 fL (80.0-100.0); Platelet Count 56 K/uL (130-400); RDW Coefficient of Variation 15.6 % (11.5-14.5); RDW Standard Deviation 55.8 fL (36.4-46.3); Red Blood Count 3.87 M/uL (4.70-6.10); White Blood Count 4.41 K/ul (4.8-10.8)
[2024-03-19 07:27] LABS: BUN Creatinine Ratio 27.7 (10-20); Calcium 8.3 mg/dl (8.6-10.3); Creatinine Clr Calc Pharmacy 149.7 ml/min; Est GFR (African American) 120.8 ml/min; Est GFR (Non-African American) 104.2 ml/min; Potassium 4.3 mmol/L (3.5-5.1)
--- NOTE | 2024-03-19 08:48 | Hospitalist Progress Note ---
Date of Service March 19, 2024 Assessment & Plan (1) Near syncope: (2) High degree atrioventricular block: (3) Trifascicular bundle branch block: (4) Status post placement of cardiac pacemaker: (5) Elevated troponin: (6) Thrombocytopenia: Plan 83-year-old male with past medical history significant for venous insufficiency of both lower extremities, nonsustained ventricular tachycardia, right bundle branch, alcoholic cirrhosis of liver without ascites, history of liver mass, gout, history of alcohol use admitted with a high grade AV block. Pt is s/p PPM placed 03/16/24 Near syncope due to heart block Trifascicular heart block/High degree AV block s/p PPM 03/16/24 --MRI Brain:No evidence of acute intracranial pathology. Minimal nonspecific white matter changes. --Head CTA:Small vessel ischemic/degenerative changes. Cerebral and cerebellar atrophy. --Neck CTA:Multilevel cervical spine spondylotic changes with multilevel bilateral foraminal stenosis. Unremarkable CT angiography of the neck. --ECHO: Left ventricle is normal in size. Mild concentric LVH. Left ventricle wall motion is normal. EF 55 to 60%. Grade 1 diastolic dysfunction. Aortic valve is mildly calcified with mild restriction in leaflet mobility. No significant stenosis. Mild mitral annular calcification. Trace mitral and tricuspid regurgitation. - Seen by cardiology and neurology - S/p PPM 03/16/24. Stable for discharge awaiting insurance auth for rehab as he is still unsteady and needs 1-2 person assist. Mild troponin elevation likely demand ischemia Alcoholic cirrhosis of liver without ascites- Patient says currently stopped drinking about 2 months ago. Continue thiamine, folic acid. Resume home diuretics lasix/aldactone Liver mass- Biopsy was done in September 2022 and study was nondiagnostic. Core biopsy was recommended. PCP ordered repeat CT scan in October 2023 but is not done yet. Needs follow-up as outpatient for further evaluation Lower extremity venous insufficiency- US LE with no DVT. Continue home diuretics. Possible right external otitis media- on Ciprodex eardrops Chronic thrombocytopenia likely secondary to liver disease- Stable Ambulatory dysfunction- Uses walker at baseline. Fall precautions. PT OT eval noted, patient needs rehab stay DVT prophylaxis- SCDs, Chemoppx C/I with thrombocytopenia Dispo- Stable for discharge to rehab, awaiting insurance auth Time spent- Approx 35 mins Admission and Anticipated Discharge Date Admission Date: March 13, 2024 Subjective Patient was seen and examined at bedside. He feels fine. He is ready to go to the rehab. Some discomfort at the pacemaker incision site. No fever, chills, N/V, chest pain, SOB. Deconditioned even when changing position in bed. Review of Systems Review of Systems: All systems reviewed & are unremarkable except as noted in Subjective Physical Exam Physical Exam: General: Lying comfortably in bed, not in distress, on room air HEENT: ANA, MMM Chest: Clear breath sounds bilaterally, no wheezes or crackles CVS: Regular rate and rhythm, normal heart sounds Abdomen: Soft, non tender, not distended, normal bowel sounds Neuro: Awake, alert, oriented, conversing well, non focal Extremities: No edema. Chronic venous stasis changes Skin: Left upper chest with dressing clean and intact at pacemaker incision site. Results & Data Results & Data Vital Signs (Past 12 Hours) Vital Signs Temp Pulse Pulse Resp BP BP Pulse Ox 03/19/24 07:59 36.4 C L 86 18 134/78 92 03/19/24 03:36 36.5 C 97 H 18 116/67 94 03/18/24 23:42 94 H 03/18/24 23:27 36.6 C 91 H 22 122/57 L 91 O2 Del Method 03/19/24 07:59 Room Air 03/19/24 03:36 Room Air 03/18/24 23:42 03/18/24 23:27 Room Air Laboratory Results Short CBC 03/19/24 Range/Units 06:24 WBC 4.41 L (4.8-10.8) K/ul Hgb 13.1 L (14.0-18.0) g/dl Hct 37.9 L (42.0-52.0) % Plt Count 56 L (130-400) K/uL BMP 03/19/24 06:24 Sodium 135 L Potassium 4.3 Chloride 109 H Carbon Dioxide 23 BUN 13 Creatinine 0.47 L Glucose 113 H Calcium 8.3 L
[2024-03-20 06:59] LABS: Hematocrit (blood only) 37.2 % (42.0-52.0); Mean Corpuscular Hemoglobin 34.3 pg (25.0-34.0); Mean Corpuscular Hgb Conc 34.9 g/dL (32.0-36.0); Mean Corpuscular Volume 98.2 fL (80.0-100.0); Mean Platelet Volume 9.8 fL (9.4-12.4); Platelet Count 49 K/uL (130-400); RDW Coefficient of Variation 15.9 % (11.5-14.5); RDW Standard Deviation 57.8 fL (36.4-46.3); Red Blood Count 3.79 M/uL (4.70-6.10); White Blood Count 4.37 K/ul (4.8-10.8)
[2024-03-20 07:25] LABS: BUN Creatinine Ratio 26.1 (10-20); Calcium 8.4 mg/dl (8.6-10.3); Est GFR (African American) 121.9 ml/min; Est GFR (Non-African American) 105.2 ml/min; Magnesium 1.6 mg/dl (1.7-2.4); Phosphorus 3.4 mg/dl (2.5-4.9); Potassium 4.2 mmol/L (3.5-5.1)
--- NOTE | 2024-03-20 08:06 | Hospitalist Progress Note ---
Date of Service March 20, 2024 Assessment & Plan (1) Near syncope: (2) High degree atrioventricular block: (3) Trifascicular bundle branch block: (4) Status post placement of cardiac pacemaker: (5) Elevated troponin: (6) Thrombocytopenia: Plan 83-year-old male with past medical history significant for venous insufficiency of both lower extremities, nonsustained ventricular tachycardia, right bundle branch, alcoholic cirrhosis of liver without ascites, history of liver mass, gout, history of alcohol use admitted with a high grade AV block. Pt is s/p PPM placed 03/16/24 Near syncope due to heart block Trifascicular heart block/High degree AV block s/p PPM 03/16/24 --MRI Brain:No evidence of acute intracranial pathology. Minimal nonspecific white matter changes. --Head CTA:Small vessel ischemic/degenerative changes. Cerebral and cerebellar atrophy. --Neck CTA:Multilevel cervical spine spondylotic changes with multilevel bilateral foraminal stenosis. Unremarkable CT angiography of the neck. --ECHO: Left ventricle is normal in size. Mild concentric LVH. Left ventricle wall motion is normal. EF 55 to 60%. Grade 1 diastolic dysfunction. Aortic valve is mildly calcified with mild restriction in leaflet mobility. No significant stenosis. Mild mitral annular calcification. Trace mitral and tricuspid regurgitation. - Seen by cardiology and neurology - S/p PPM 03/16/24. Stable for discharge awaiting insurance auth for rehab as he is still unsteady and needs 1-2 person assist. Hypomagnesemia- repleted, recheck in am Mild troponin elevation likely demand ischemia Alcoholic cirrhosis of liver without ascites- Patient says currently stopped drinking about 2 months ago. Continue thiamine, folic acid. Resume home diuretics lasix/aldactone Liver mass- Biopsy was done in September 2022 and study was nondiagnostic. Core biopsy was recommended. PCP ordered repeat CT scan in October 2023 but is not done yet. Needs follow-up as outpatient for further evaluation Lower extremity venous insufficiency- US LE with no DVT. Continue home diuretics. Possible right external otitis media- on Ciprodex eardrops Chronic thrombocytopenia likely secondary to liver disease- Stable Ambulatory dysfunction- Uses walker at baseline. Fall precautions. PT OT eval noted, patient needs rehab stay DVT prophylaxis- SCDs, Chemoppx C/I with thrombocytopenia Dispo- Stable for discharge to rehab, awaiting insurance auth Time spent- Approx 35 mins Admission and Anticipated Discharge Date Admission Date: March 13, 2024 Subjective Patient seen and examined at bedside. Feels fine. No new issues. Ready to go to rehab. No fever, SOB, N/V. Review of Systems Review of Systems: All systems reviewed & are unremarkable except as noted in Subjective Physical Exam Physical Exam: General: Lying comfortably in bed, not in distress, on room air HEENT: ANA, MMM Chest: Clear breath sounds bilaterally, no wheezes or crackles CVS: Regular rate and rhythm, normal heart sounds Abdomen: Soft, non tender, not distended, normal bowel sounds Neuro: Awake, alert, oriented, conversing well, non focal Extremities: No edema. Chronic venous stasis changes Skin: Left upper chest with dressing clean and intact at pacemaker incision site. Results & Data Results & Data Vital Signs (Past 12 Hours) Vital Signs Temp Pulse Pulse Resp BP BP Pulse Ox 03/20/24 07:26 36.6 C 84 18 111/67 94 03/20/24 02:49 84 20 116/63 93 03/20/24 00:13 36.6 C 88 17 115/65 91 03/19/24 23:11 92 H 03/19/24 21:32 03/19/24 20:29 36.6 C 86 19 127/72 96 O2 Del Method 03/20/24 07:26 Room Air 03/20/24 02:49 Room Air 03/20/24 00:13 Room Air 03/19/24 23:11 03/19/24 21:32 Room Air 03/19/24 20:29 Room Air Laboratory Results Short CBC 03/20/24 Range/Units 06:36 WBC 4.37 L (4.8-10.8) K/ul Hgb 13.0 L (14.0-18.0) g/dl Hct 37.2 L (42.0-52.0) % Plt Count 49 L (130-400) K/uL BMP 03/20/24 06:36 Sodium 134 L Potassium 4.2 Chloride 107 Carbon Dioxide 24 BUN 12 Creatinine 0.46 L Glucose 99 Calcium 8.4 L
[2024-03-20] MEDS: MAGNESIUM SULFATE / D5W 1 GM/100 ML BAG IV ONE (08:42)
[2024-03-21] MEDS: ACETAMINOPHEN 325 MG TAB PO PRN (02:21)
[2024-03-21 06:46] LABS: Hematocrit (blood only) 34.8 % (42.0-52.0); Hemoglobin 12.2 g/dl (14.0-18.0); Mean Corpuscular Hemoglobin 33.8 pg (25.0-34.0); Mean Corpuscular Hgb Conc 35.1 g/dL (32.0-36.0); Mean Corpuscular Volume 96.4 fL (80.0-100.0); Mean Platelet Volume 10.3 fL (9.4-12.4); Platelet Count 58 K/uL (130-400); RDW Coefficient of Variation 15.9 % (11.5-14.5); RDW Standard Deviation 56.4 fL (36.4-46.3); Red Blood Count 3.61 M/uL (4.70-6.10); White Blood Count 5.05 K/ul (4.8-10.8)
[2024-03-21 07:08] LABS: BUN Creatinine Ratio 24.5 (10-20); Calcium 7.9 mg/dl (8.6-10.3); Creatinine Clr Calc Pharmacy 132.9 ml/min; Est GFR (Non-African American) 99.2 ml/min; Magnesium 1.6 mg/dl (1.7-2.4); Potassium 4.2 mmol/L (3.5-5.1)
[2024-03-21 08:05] VITALS: O2SAT 97
--- NOTE | 2024-03-21 11:03 | Discharge Summary ---
Discharge Summary Date of Service March 21, 2024 Principal Dx & Hospital Course #1 = Principal Diagnosis (1) High degree atrioventricular block: (2) Near syncope: (3) Trifascicular bundle branch block: (4) Status post placement of cardiac pacemaker: (5) Elevated troponin: (6) Thrombocytopenia: Plan 83-year-old male with past medical history significant for venous insufficiency of both lower extremities, nonsustained ventricular tachycardia, right bundle branch, alcoholic cirrhosis of liver without ascites, history of liver mass, gout, history of alcohol use admitted with a high grade AV block. Pt is s/p PPM placed 03/16/24 Near syncope due to heart block Trifascicular heart block/High degree AV block s/p PPM 03/16/24 --MRI Brain:No evidence of acute intracranial pathology. Minimal nonspecific white matter changes. --Head CTA:Small vessel ischemic/degenerative changes. Cerebral and cerebellar atrophy. --Neck CTA:Multilevel cervical spine spondylotic changes with multilevel bilateral foraminal stenosis. Unremarkable CT angiography of the neck. --ECHO: Left ventricle is normal in size. Mild concentric LVH. Left ventricle wall motion is normal. EF 55 to 60%. Grade 1 diastolic dysfunction. Aortic valve is mildly calcified with mild restriction in leaflet mobility. No significant stenosis. Mild mitral annular calcification. Trace mitral and tricuspid regurgitation. - Seen by cardiology and neurology - S/p PPM 03/16/24. Stable for discharge awaiting insurance auth for rehab as he is still unsteady and needs 1-2 person assist. Hypomagnesemia- repleted, recheck in am Mild troponin elevation likely demand ischemia Alcoholic cirrhosis of liver without ascites- Patient says currently stopped drinking about 2 months ago. Continue thiamine, folic acid. Resume home diuretics lasix/aldactone Liver mass- Biopsy was done in September 2022 and study was nondiagnostic. Core biopsy was recommended. PCP ordered repeat CT scan in October 2023 but is not done yet. Needs follow-up as outpatient for further evaluation Lower extremity venous insufficiency- US LE with no DVT. Continue home diuretics. Possible right external otitis media- on Ciprodex eardrops Chronic thrombocytopenia likely secondary to liver disease- Stable Ambulatory dysfunction- Uses walker at baseline. Fall precautions. PT OT eval noted, patient needs rehab stay DVT prophylaxis- SCDs, Chemoppx C/I with thrombocytopenia Dispo- Stable for discharge to rehab, awaiting insurance auth Patient was admitted to the medical telemetry unit. Cardiology was consulted. Patient underwent permanent pacemaker placement. PT and OT were consulted. Inpatient rehab was recommended. At the time of discharge patient was tolerating a diabetic heart healthy diet. Patient was transferred to [facility] for continuing rehab in stable condition. Notes For Next Care Provider Medication Changes From Visit h Admission HPI Per Admitting Provider 83-year-old male with past medical history significant for venous insufficiency of both lower extremities, nonsustained ventricular tachycardia, right bundle branch, alcoholic cirrhosis of liver without ascites, history of liver mass, gout, history of alcohol use ,patient states not drinking since last 2 months Used to drink 2 cases of beer per week lives with his and ambulates with walker comes because of dizziness and near syncope. Patient states when he woke up in the morning when he tried to get up he felt very dizzy and he sat down and after 10 minutes again got up and when he ambulated through hallway and into the bathroom he felt like passing out , he held the sink and then sat on the commode after some time he was able to get up and then whole day he sat in the chair watching football match. Around 7 PM again he felt was feeling dizzy and then he decided come to the hospital. In the hospital initially was having some blurred vision but now he can see okay and also there was an episode when things were moving horizontally. Currently resting comfortably and alert and oriented. States he was also having imbalance while ambulating with walker. Currently denies any headache. Vision is okay. He has no headache.Thinks there could be some ear infection, but denies any earaches. No runny nose or sore throat. No cough. Appetite is okay. No difficulty swallowing. No chest pain or shortness of breath. No nausea. No abdominal pain. Normal bowel and bladder movements. Hemodynamics are okay.Patient also had an abnormal Zio patch. Irreversible symptomatic sinus bradycardia.Nonsustained ventricular tachycardia on Zio patch 11/2023 during sleep. APC/PVC. 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 Seen by EP and plan for dual-chamber pacemaker on 03/16/2024. Past medical history. As mentioned above Past surgical history. Nasal endoscopy. Bilateral cataracts. Social history. . Quit smoking 1984. Says not drinking since last 2 months, seems used to drink about 2 case of beer a week. No drug use. Family history. Brother had cancer. Sister had glaucoma. Brother had CA. Admission Exam Per Admitting Provider Physical Exam: Vitals signs as noted above General Appearance:Obese, no apparent distress Head: normocephalic, Atraumatic Eyes: normal inspection, EOMI, +Icteric Neck: supple, Trachea midline Respiratory/Chest: Normal breath sounds, basal crackles,, No accessory muscle use Cardiovascular: Irregularly irregular, No murmur Abdomen/GI:Soft, Non tender, distended, bowel sounds present Extremities/Musculoskeletal:normal inspection, 3+ B/L LE edema Neurologic/Psych:AAOX3, grossly no focal neurological deficits Skin: normal color, warm, + jaundice Discharge Exam General- adult, elderly male examined at bedside Head- atraumatic Eyes- PERRL, EOMI, anicteric ENT- oropharynx clear Neck- supple, no JVD, no adenopathy, no thyromegaly; carotids +2/2, no bruits appreciated Lungs- clear to auscultation and percussion Heart- regular rhythm; no murmur, no gallop, no rub appreciated Abdomen- normal bowel sounds, soft, nontender, no masses or hepatosplenomegaly Extremities- no pretibial edema, no calf tenderness; peripheral pulses intact Neuro- alert, oriented x 3; PERRL, EOMI; no focal deficits Skin- warm & dry Updated Medication List Medication Instructions Recorded Confirmed Type [id number] acid 0.4 1 tab PO DAILY 09/16/22 03/13/24 History mg-lycopene 300 mcg-lutein 250 mcg tablet (Centrum Silver) folic acid 1 mg tablet 1 mg PO QAM #30 tabs 09/21/22 03/13/24 Rx tramadol 50 mg tablet 50 mg PO BID PRN pain #11 tabs 01/20/24 03/13/24 Rx azelastine 137 mcg (0.1 %) nasal 1 spray intranasal BID 03/13/24 03/13/24 History spray calcium carbonate 600 mg PO BIDM 03/13/24 03/13/24 History furosemide 40 mg tablet 40 - 80 mg PO QAM 03/13/24 03/13/24 History spironolactone 25 mg tablet 25 mg PO QAM 03/13/24 03/13/24 History thiamine HCl (vitamin B1) 100 mg 100 mg PO QAM 03/13/24 03/13/24 History tablet triamcinolone acetonide 0.5 % 1 applic topical BID PRN AFFECTED 03/13/24 03/13/24 History topical cream AREA NEEDED Hospital Stay Data Consultations 03/13/24 21:46 ED Decision to Admit Stat 03/14/24 08:00 Consult Cardiology Routine Consult Neurology Routine Procedures Performed Operation Date: 03/16/24 11:30 Actual Procedures s Venogram, Unilateral - Diane Saleh DO p Pacer with A/V Leads (Dual) - Diane Saleh DO Diagnostic Imagining Performed 03/14/24 03:22 CTA head w con [CT angio head w con] Urgent CTA neck with con [CT angio neck with con] Urgent MRI Brain [MR brain wo/w con] Urgent 03/14/24 08:38 US venous doppler LE BI Routine 03/16/24 06:45 EP Lab Images for PACS ONCE Pending Results Patient Have Any Pending Studies at Discharge: No Discharge Instructions Given to Patient (Per Discharging Provider) Device and wound check as scheduled this week at [facility] Cardiology F/U with [facility] Hepatology Check CBC, BMP and LFTs in 3 days Total Time Total Time Spent Total Time Spent (In Minutes): 40 minutes spent in discharge planning for this patient
[2024-03-21 12:07] VITALS: RESP 18; TEMP 97.5
[2024-03-21 17:56] VITALS: BP 119/66; PULSE 63
== END 2024-03-21 17:56 | DRG 243 ==
LOC: ED 20:50 → SUATTDRO 23:58 → 2E 23:58

== ENCOUNTER 2025-03-02 15:31 | Inpatient (IN) ==
--- NOTE | 2025-03-02 16:05 | Emergency Department Note ---
Impression & Plan Closed fracture of neck of right femur, Fall from standing, Dyspnea on exertion, Elevated troponin, Pulmonary edema, Elevated brain natriuretic peptide (BNP) level, Pancytopenia ED Provider Note HISTORY OF PRESENT ILLNESS: Patient is an 84-year-old male presenting with right hip pain. Patient reports that he walks with a walker at home and had gotten to his recliner and was attempting to sit down on the angled recliner when he slipped off the recliner and fell, landing on his right hip. He reports that he and his are trying to get him up off the ground but he was unable to do so secondary to pain in the hip, and his called 911. Patient denies striking his head or loss of consciousness. He reports he just landed on his hip. He denies any anticoagulation or antiplatelet therapy. He denies any chest pain, shortness of breath or lightheadedness prior to the fall. He reports he just slipped out of his recliner. He reports that recently he has been having shortness of breath with any sort of exertion. He reports he is only able to take a few steps at a time before he has to sit down to catch his breath. ROS: as above PHYSICAL EXAM: Constitutional: Patient appears in no acute distress. HENT: Head: Normocephalic and atraumatic. Eyes: EOMI, PERRL Mouth/Throat: Mucous membranes moist. Neck: Trachea midline. Neck supple. Cardiovascular: Paced rhythm. No murmurs, rubs or gallops. Intact distal pulses. Pulmonary/Chest: No respiratory distress. Breath sounds clear and equal bilaterally. Patient is conversationally dyspneic. Abdominal: Abdomen soft, no tenderness, rebound or guarding. Musculoskeletal: +1 edema of bilateral lower extremities - RLE: Right leg is shortened and externally rotated. Patient has tenderness palpation of the proximal lateral femur at the hip. Pain with internal/external rotation of the femur at the hip. He is able to dorsiflex and plantarflex the ankle. Able to wiggle toes. Sensation intact light touch about the nerve distributions of the leg. Intact DP pulse. Skin: Warm and dry. No rash, erythema, pallor or cyanosis Psychiatric: Appropriate mood and affect for situation. Neurological: Alert and keenly responsive. CN II-XII grossly intact MDM: - Vitals signs showed hypertension and tachycardia - History obtained via patient. History as above. - Chronic conditions affecting care: thrombocytopenia; hyperbilirubinemia; cirrhosis - Differential diagnoses include, but are not limited to: ACS; dysrhythmia; electrolyte abnormality; pneumonia; pulmonary edema; femur fracture; pelvic fracture; hip dislocation - Order placed for continuous cardiac monitoring. At this time, monitor showed rate of 89 bpm with paced rhythm, per my interpretation. - External medical records reviewed. Discharge summary dated 03/21/2024 was reviewed. Patient was admitted due to high degree AV block and had a pacemaker placed on 03/16/2024. - EKG image interpreted by myself showed paced rhythm. Rate 89 bpm. QT 430. - Laboratory workup interpreted by myself showed pancytopenia (WBC 4.62; plt 57; Hgb 12.9); elevated INR (1.2); stable electrolytes; elevated total bilirubin (1.9 - chronically elevated); elevated BNP (172); elevated troponin (20.7) - UA negative for infection - Xray pelvis with R hip images reviewed by myself showed a right femoral neck fracture, per my interpretation. - CXR image showed diffuse pulmonary interstitial opacities concerning for potential pulmonary edema. - Patient given 2 mg IV morphine for pain control - Clayton catheter inserted - Discussed case with orthopedist technical sales consultant, Dr. Nava, at 16:43. Recommends admission to medicine service and have the patient n.p.o. at midnight for plan for OR in the morning. - Discussion was had with binder caser about patient's case and need for admission - Hospitalist consulted for admission at 17:22 - [facility] 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 Elevated troponin (Acute) Thrombocytopenia (Acute) Near syncope (Acute) Bifascicular block Liver lesion Alcohol abuse Afib Anasarca Decompensated hepatic cirrhosis Abdominal ascites (Acute) Liver masses (Acute) Hyperbilirubinemia (Acute) Pulmonary edema (Acute) Elevated troponin I level (Acute) Abnormal EKG (Acute) Thrombocytopenia (Acute) Epistaxis (Acute) Medical History Gout Surgical History Hx of knee surgery Hx of hernia repair Hx of cataract extraction Hx of sinus surgery History of selective laser trabeculoplasty Family History Brother Heart disease Social History Smoking Status: Former smoker Tobacco Type: Cigarettes Second Hand Exposure: No; Do You Dip or Chew Tobacco: No; Hx Alcohol Use: Yes Alcohol type: beer Alcohol type Comment: 2 cases a week Alcohol Intake Frequency: 4 or More x per/Week Hx Substance Use: No Preferred Language: Ukrainian Communication Ability: Effective Systems Admin Required: No Beliefs That Will Affect Care: None Current Living Situation: Spouse Feels Safe at Home: Yes Assistive Devices: Walker Allergies Allergies Allergy/AdvReac Type Severity Reaction Status Date / Time No Known Allergies Allergy Verified 03/02/25 17:25 Home Meds Home Medications Medication Instructions Recorded Confirmed [id number] acid 0.4 1 tab PO DAILY 09/16/22 03/02/25 mg-lycopene 300 mcg-lutein 250 mcg tablet (Centrum Silver) azelastine 137 mcg (0.1 %) nasal 1 spray intranasal AMHS 03/13/24 03/02/25 spray calcium carbonate 600 mg PO BIDM 03/13/24 03/02/25 spironolactone 25 mg tablet 25 mg PO QAM 03/13/24 03/02/25 thiamine HCl (vitamin B1) 100 mg 100 mg PO QAM 03/13/24 03/02/25 tablet furosemide 40 mg tablet 80 mg PO QAM 03/02/25 03/02/25 potassium 99 mg tablet 99 mg PO Q OTHER DAY 03/02/25 03/02/25 triamcinolone acetonide 0.5 % 1 applic topical BID 07/31/25 07/31/25 topical cream Previous Rx's Medication Instructions Recorded folic acid 1 mg tablet 1 mg PO QAM #30 tabs 09/21/22 Results & Data (ED) Vital Signs Vital Signs - 24 hr 03/02/25 15:46 03/02/25 15:46 03/02/25 16:02 Temperature 36.6 C Temperature Source Oral Pulse Rate 93 H 89 Pulse Rate [Apical] 93 H Respiratory Rate 16 16 Respiratory Effort / Characteristics Non-Labored Spontaneous Non-Labored Spontaneous Respiratory Depth Normal Blood Pressure 156/66 H Blood Pressure [Right Arm] 156/66 H Blood Pressure Mean 96 Blood Pressure Mean [Right Arm] 96 Pulse Oximetry 93 93 Oxygen Delivery Method Room Air Room Air Sepsis Recent Fever Within 48 Hours No Sepsis New/Unexplained Change in Mental Status No Sepsis Action Taken by Nursing No Action Required Laboratory Data 03/02/25 16:46 03/02/25 16:46 Lab Results 03/02/25 03/02/25 Range/Units 16:46 17:09 WBC 4.62 L (4.8-10.8) K/ul RBC 3.78 L (4.70-6.10) M/uL Hgb 12.9 L (14.0-18.0) g/dl Hct 37.4 L (42.0-52.0) % MCV 98.9 (80.0-100.0) fL MCH 34.1 H (25.0-34.0) pg MCHC 34.5 (32.0-36.0) g/dL RDW Std Deviation 54.8 H (36.4-46.3) fL RDW Coeff of Irene 14.8 H (11.5-14.5) % Plt Count 57 L (130-400) K/uL MPV 10.2 (9.4-12.4) fL Immature Gran % (Auto) 0.6 % Neut % (Auto) 82.1 % Lymph % (Auto) 6.9 % Crowley % (Auto) 9.1 % Eos % (Auto) 0.9 % Baso % (Auto) 0.4 % Neut # (Auto) 3.79 (1.40-6.50) K/uL Lymph # (Auto) 0.32 L (1.20-3.40) K/uL Crowley # (Auto) 0.42 (0.11-0.59) K/uL Eos # (Auto) 0.04 (0.00-0.50) K/uL Baso # (Auto) 0.02 (0.00-0.20) K/uL Immature Gran # (Auto) 0.03 (0.01-0.20) K/uL PT 12.7 H (9.0-12.0) Seconds INR 1.2 H (0.9-1.1) APTT 34 H (21-31) Seconds PTT Ratio 1.3 Sodium 132 L (136-145) mmol/L Potassium TNP Chloride 101 (98-107) mmol/L Carbon Dioxide 23 (21-32) mmol/L Anion Gap 8 (3-11) BUN 16 (6-23) mg/dl Creatinine 0.67 (0.6-1.4) mg/dl Est Cr Clr Drug Dosing Not Reportable eGFR 93.22 BUN/Creatinine Ratio 23.9 H (10-20) Glucose 168 H (70-99(Fasting)) mg/dl Calcium 8.6 (8.6-10.3) mg/dl Total Bilirubin 1.9 H (0.2-1.0) mg/dl AST TNP ALT 20 (7-52) U/L Alkaline Phosphatase 93 (34-104) U/L Troponin I High Sens 20.7 H (0-20) pg/ml B-Natriuretic Peptide 172 H (0-100) pg/ml Total Protein 6.7 (6.0-8.3) gm/dl Albumin 3.1 L (3.4-5.0) gm/dl Globulin 3.6 (2.5-4.0) gm/dl Albumin/Globulin Ratio 0.9 (0.9-2) Urine Color Yellow Urine Appearance Clear (Clear) Urine pH 6.0 (4.5-7.5) Ur Specific [place] 1.012 (1.000-1.030) Urine Protein Negative (Negative) Urine Glucose (UA) Negative (Negative) Urine Ketones Negative (Negative) Urine Blood Negative (Negative) Urine Nitrite Negative (Negative) Urine Bilirubin Negative (Negative) Urine Urobilinogen Negative (Negative) Ur Leukocyte Esterase 1+ H (Negative) Urine WBC (Auto) 6-10 H (0-5) /hpf Urine RBC (Auto) 0-2 (0-2) /hpf U Hyaline Cast (Auto) 3-5 H (0-2) /lpf U Epithel Cells (Auto) 0-2 (0-2) /hpf Urine Bacteria (Auto) None Seen (None Seen) Urine Comment Administered Medications Discontinued Medications Acetaminophen (Ofirmev) 1,000 mg in 100 mls @ 400 mls/hr IV NOW STA Stop: 03/02/25 16:15 Last Admin: 03/02/25 17:05 Dose: Not Given Documented By: MP Morphine Sulfate (Morphine Sulfate 2 Mg/Ml Carp) 2 mg IV NOW STA Stop: 03/02/25 16:02 Last Admin: 03/02/25 17:05 Dose: 2 mg Documented By: MP Imaging Data Radiologist's Impression: Chest X-Ray 03/02/25 16:01 Technique: A frontal view of the chest was obtained Findings: There is multifocal interstitial prominence throughout both lungs. The heart size is at the upper limit of normal. No pleural effusion or pneumothorax is seen. No fracture is noted. There is a left chest wall pacemaker device Impression: Diffuse pulmonary interstitial opacities that may be due to atypical pneumonia. Pulmonary edema is possible but felt to be less likely ACT 112: Positive. There are findings on this exam that require communication between the performing entity and the patient following Patient Test Result Information Act ([place] ACT 112) guidelines. Electronically signed by Vamsi Olivera 03-02-2025 5:14 PM Hip/Pelvis X-Ray 03/02/25 16:01 Clinical History: Pain after fall 3 views of the pelvis and right hip are submitted for review. Findings: There is an acute comminuted intertrochanteric fracture of the right femoral neck, with mild displacement and angulation of fracture fragments. No subluxation or dislocation is seen. No significant arthritic changes are noted. No other osseous abnormality is identified. There are no radiopaque foreign bodies. Impression: Acute fracture of the right femoral neck ACT 112: Positive. There are findings on this exam that require communication between the performing entity and the patient following Patient Test Result Information Act ([place] ACT 112) guidelines. Electronically signed by Vamsi Olivera 03-02-2025 5:13 PM Discharge Plan Visit Data Chief Complaint: Hip Pain Stated Complaint: FALL ED Provider: Susan Washington Discharge Problem: Closed fracture of neck of right femur, Fall from standing, Dyspnea on exertion, Elevated troponin, Pulmonary edema, Elevated brain natriuretic peptide (BNP) level, Pancytopenia Condition: Fair Forms Stand Alone Forms: My [facility] Prescriptions Prescriptions: No Action Centrum Silver 0.4 mg-300 mcg- 250 mcg Tablet 1 tab PO DAILY folic acid 1 mg Tablet 1 mg PO QAM Qty: 30 0RF thiamine HCl (vitamin B1) 100 mg tablet 100 mg PO QAM spironolactone 25 mg tablet 25 mg PO QAM calcium carbonate 600 mg calcium (1,500 mg) Tablet 600 mg PO BIDM azelastine 137 mcg (0.1 %) spray,non-aerosol 1 spray INTRANASAL AMHS triamcinolone acetonide 0.5 % cream 1 applic TOPICAL BID Rx Instructions: apply to affected area furosemide 40 mg tablet 80 mg PO QAM Potassium-99 99 mg Tablet 99 mg PO Q OTHER DAY Referrals Referrals: Bassem Winters MD [Primary Care Provider] -
[2025-03-02 16:59] LABS: Hematocrit (blood only) 37.4 % (42.0-52.0); Hemoglobin 12.9 g/dl (14.0-18.0); Immature Granulocytes # (auto) 0.03 K/uL (0.01-0.20); Immature Granulocytes % (auto) 0.6 %; Mean Corpuscular Hemoglobin 34.1 pg (25.0-34.0); Mean Corpuscular Volume 98.9 fL (80.0-100.0); Platelet Count 57 K/uL (130-400); RDW Standard Deviation 54.8 fL (36.4-46.3); Red Blood Count 3.78 M/uL (4.70-6.10); White Blood Count 4.62 K/ul (4.8-10.8)
[2025-03-02] MEDS: ACETAMINOPHEN 1,000 MG/100 ML VIAL IV STA (17:05)
[2025-03-02] MEDS: MoRPHine SULFATE 2 MG/ML CARP IV STA (17:05)
--- NOTE | 2025-03-02 17:13 | XRay Report ---
Clinical History: Pain after fall 3 views of the pelvis and right hip are submitted for review. Findings: There is an acute comminuted intertrochanteric fracture of the right femoral neck, with mild displacement and angulation of fracture fragments. No subluxation or dislocation is seen. No significant arthritic changes are noted. No other osseous abnormality is identified. There are no radiopaque foreign bodies. Impression: Acute fracture of the right femoral neck ACT 112: Positive. There are findings on this exam that require communication between the performing entity and the patient following Patient Test Result Information Act ([place] ACT 112) guidelines. Electronically signed by Vamsi Olivera 03-02-2025 5:13 PM
--- NOTE | 2025-03-02 17:14 | XRay Report ---
Technique: A frontal view of the chest was obtained Findings: There is multifocal interstitial prominence throughout both lungs. The heart size is at the upper limit of normal. No pleural effusion or pneumothorax is seen. No fracture is noted. There is a left chest wall pacemaker device Impression: Diffuse pulmonary interstitial opacities that may be due to atypical pneumonia. Pulmonary edema is possible but felt to be less likely ACT 112: Positive. There are findings on this exam that require communication between the performing entity and the patient following Patient Test Result Information Act ([place] ACT 112) guidelines. Electronically signed by Vamsi Olivera 03-02-2025 5:14 PM
[2025-03-02 17:27] LABS: Alanine Aminotransferase 20 U/L (7-52); Albumin Globulin Ratio 0.9 (0.9-2); Alkaline Phosphatase 93 U/L (34-104); Anion Gap 8 (3-11); Bilirubin,Total 1.9 mg/dl (0.2-1.0); Blood Urea Nitrogen 16 mg/dl (6-23); Calcium 8.6 mg/dl (8.6-10.3); Carbon Dioxide 23 mmol/L (21-32); Chloride 101 mmol/L (98-107); Globulin 3.6 gm/dl (2.5-4.0); Glucose 168 mg/dl (70-99(Fasting)); INR 1.2 (0.9-1.1); Partial Thromboplastin Time 34 Seconds (21-31); Prothrombin Time 12.7 Seconds (9.0-12.0); Sodium 132 mmol/L (136-145); Total Protein 6.7 gm/dl (6.0-8.3)
[2025-03-02 17:34] LABS: Appearance Urine Clear (Clear); Bacteria Urine Automated None Seen (None Seen); Epithelial Cell Urine Auto 0-2 /hpf (0-2); Glucose Urine UA Negative (Negative); RBC Urine Automated 0-2 /hpf (0-2)
--- NOTE | 2025-03-02 18:04 | History & Physical Report ---
Date of Service March 02, 2025 Assessment & Plan (1) Elevated brain natriuretic peptide (BNP) level: (2) Pulmonary edema: (3) Fall from standing: (4) Closed fracture of neck of right femur: (5) Status post placement of cardiac pacemaker: (6) Trifascicular bundle branch block: (7) Thrombocytopenia: Plan Mr. Hi is an 84 y.o. M with past medical history of high degree AV block, ex- smoker, s/p pacemaker for trifasicular heart block, liver lesions presents to the hospital due to fall. #Fall - Fell on R hip while transferring from walker to chair, slipped - Previous history of 1-2 falls earlier this year - Hip Pelvis XR: acute fx of R femoral neck - Consulted Ortho for likely surgical intervention, NPO at midnight #SOB/CHF/Lung Mets? - Reported SOB in ED - EKG: atrial-sensed ventricular paced rhythm - Chest XR: diffuse pulmonary interstitial opacities, maybe atypical pneumonia, pulmonary edema possible but less likely - BNP 172, mildly elevated, likely due to trauma from fall - ECHO 03/14/24: EF 55-60%, mitral and tricuspid regurgitation, mild concentric LVH - Low suspicion for CHF exacerbation due to mildly elevated BNP and chronic, non-worsening nature of SOB - Medically cleared for surgery as benefit of surgical fixation outweighs risk - Ordered CT chest #Venous insufficiency - home Furosemide held #S/p cardiac pacemaker - for trifascicular heart block and syncopal episodes #Cirrhosis - Likely cause of thrombocytopenia - INR 1.2, Albumin 3.1 #Thrombocytopenia - Likely due to cirrhosis - Baseline plt count 50-69 Dispo: med-surg VTE Prophylaxis: SCDs Diet: NPO at midnight Code Status: Full History of Present Illness Chief Complaint: Fall Primary Care Provider: Bassem Winters MD Mr. Hi is an 84 y.o. M with past medical history of high degree AV block, ex- smoker, s/p pacemaker for trifascicular heart block, liver lesions presents to the hospital due to fall. States around 2pm today, he was using his walker and trying to sit on his chair. He placed a pee pad on the chair before sitting. States he misjudged the distance between himself and the chair and slipped on the pee pad onto the floor on his right help. He was not able to get up due to lack of strength, and had to call EMS. Denies hitting his head. Denies CP, SOB, dizziness prior to fall. He has had a few falls in the past year. Reports this fall was all mechanical. At this moment, patient is not having SOB, CP, AP, N/V, fevers, chills, cough. Patient states he will sometimes have SOB on exertion but this is baseline for him for past few years. States it will sometimes occur when walking a few feet. Reports SOB has been stable and non- worsening over the past few years. Denies history of asthma or COPD and is not o n oxygen at home. No other acute complaints. Allergies Allergy/AdvReac Type Severity Reaction Status Date / Time No Known Allergies Allergy Verified 03/02/25 17:25 Home Medications Medication Instructions Recorded Confirmed Type [id number]-[id number]-yrduv acid 0.4 1 tab PO DAILY 09/16/22 03/02/25 History mg-lycopene 300 mcg-lutein 250 mcg tablet (Centrum Silver) folic acid 1 mg tablet 1 mg PO QAM #30 tabs 09/21/22 03/02/25 Rx azelastine 137 mcg (0.1 %) nasal 1 spray intranasal AMHS 03/13/24 03/02/25 History spray calcium carbonate 600 mg PO BIDM 03/13/24 03/02/25 History spironolactone 25 mg tablet 25 mg PO QAM 03/13/24 03/02/25 History thiamine HCl (vitamin B1) 100 mg 100 mg PO QAM 03/13/24 03/02/25 History tablet furosemide 40 mg tablet 80 mg PO QAM 03/02/25 03/02/25 History potassium 99 mg tablet 99 mg PO Q OTHER DAY 03/02/25 03/02/25 History triamcinolone acetonide 0.5 % 1 applic topical BID 03/02/25 03/02/25 History topical cream Past Med/Surg History Problem List (Updated 03/02/25 @ 17:42 by Susan Washington MD) Pancytopenia (Acute) Elevated brain natriuretic peptide (BNP) level (Acute) Pulmonary edema (Acute) Elevated troponin (Acute) Dyspnea on exertion (Acute) Fall from standing (Acute) Closed fracture of neck of right femur (Acute) 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 Elevated troponin (Acute) Thrombocytopenia (Acute) Near syncope (Acute) Bifascicular block Liver lesion Alcohol abuse Afib Anasarca Decompensated hepatic cirrhosis Abdominal ascites (Acute) Liver masses (Acute) Hyperbilirubinemia (Acute) Pulmonary edema (Acute) Elevated troponin I level (Acute) Abnormal EKG (Acute) Thrombocytopenia (Acute) Epistaxis (Acute) Medical History Gout Surgical History Hx of knee surgery Hx of hernia repair Hx of cataract extraction Hx of sinus surgery History of selective laser trabeculoplasty Family History Brother Heart disease Social History Smoking Status: Former smoker Tobacco Type: Cigarettes Second Hand Exposure: No; Do You Dip or Chew Tobacco: No; Hx Alcohol Use: Yes Alcohol type: beer Alcohol type Comment: 2 cases a week Alcohol Intake Frequency: 4 or More x per/Week Hx Substance Use: No Preferred Language: Hungarian Communication Ability: Effective Combat Systems Engineer Required: No Beliefs That Will Affect Care: None Current Living Situation: Spouse Feels Safe at Home: Yes Assistive Devices: Walker Review of Systems Constitutional: as per Subjective / HPI Physical Exam Constitutional: WD/WN, vitals as above Respiratory: normal respiratory effort, lungs clear to auscultation Cardiovascular: RRR, no murmur, no edema Gastrointestinal (Abdomen): normal bowel sounds, soft, nontender, no hepatosplenomegaly Musculoskeletal: RLE is externally rotated and shortened, moderate pinpoint tenderness on R hip Skin: + ecchymosis (b/l UE, baseline) Psychiatric: A+Ox3, euthymic affect Results & Data Results & Data Vital Signs (Past 12 Hours) Vital Signs Temp Pulse Pulse Resp BP BP Pulse Ox 03/02/25 16:02 89 03/02/25 15:46 93 H 16 156/66 H 93 03/02/25 15:46 36.6 C 93 H 16 156/66 H 93 O2 Del Method 03/02/25 16:02 03/02/25 15:46 Room Air 03/02/25 15:46 Room Air Supervising Physician Co-Signing Physician Notes I personally examined the patient and verified all cisse points of history and exam, discussed case, and agree with decision making with Dr Cristi dinero - standing. mechanical. no loc. immediate hip pain. clarified - SOB/[place] is chronic and has been not at all worse recently than any time in the past. relates never really having the SOB/[place] evaluated vitals noted nad heent nc at mmm breathing unlabored and lungs clear no r/r/w good effort skin n orashes no pallor or icterus. labs and diagnostics noted osteoporotic hip fx - ortho consult. medically acceptable risk since untreated hip fracture carries such significant morbidity and mortality - obviously suboptimal surgical risk with cirrhosis, but d/w pt and risk/benefit in my view would still favor repair -outpt bone health management chronic dyspnea - lungs clear and RR/SpO2 ok on room air - but CXR with opacities not entirely clear - CT chest to clarify more (both because it sounds like this has not been evaluated further, and since it may be helpful for anesthesia to know if there's something such as fibrosis) cirrhosis - seems to be fairly stable, appears compensated. consider further w/u of liver masses first noted ~2022 - less emergent than any of above so will discuss further post op (monique to ensure no w/u done outside our system to avoid redundancy) otherwise as above Resident Activity Tracking Resident Involvement: Resident Care Provided Care Provided: Adult [facility] Medicine
[2025-03-02 18:05] LABS: Potassium 4.1 mmol/L (3.5-5.1)
[2025-03-02] MEDS ORDERED: Patient's HEIGHT &/or WEIGHT Needed SCH (19:00)
--- NOTE | 2025-03-02 19:19 | Billing Data ---
Date of Service March 02, 2025 Coding Level of Care Code 19900 INT INP/OBS CARE
--- NOTE | 2025-03-02 20:48 | CT Scan Report ---
CT of the chest without contrast Technique: Noncontrast axial images of the chest. Coronal and sagittal reformatted images made available for review No comparison Findings: Gynecomastia. Exam limited secondary to lack of IV contrast. Left chest wall dual-lead intracardiac device. Diffuse right greater than left apical predominant bullous emphysematous change. Linear atelectasis in the lung bases. Traction bronchiectasis in the left lower lobe. Trace right pleural effusion. Limited evaluation the upper abdomen demonstrates hepatic cirrhosis with splenomegaly. Impression Gynecomastia likely secondary to liver dysfunction. Hepatic cirrhosis with splenomegaly incompletely evaluated on this exam No acute pulmonary pathology. Electronically signed by Ryder Guerra 03-02-2025 8:47 PM
[2025-03-02] MEDS: KETOROLAC TROMETHAMINE 15 MG/ML VIAL IV PRN (22:58)
[2025-03-03] MEDS: ACETAMINOPHEN 1,000 MG/100 ML VIAL IV SCH (01:07)
[2025-03-03 06:35] LABS: Hematocrit (blood only) 29.3 % (42.0-52.0); Hemoglobin 10.5 g/dl (14.0-18.0); Immature Granulocytes # (auto) 0.02 K/uL (0.01-0.20); Immature Granulocytes % (auto) 0.5 %; Mean Corpuscular Hemoglobin 35.1 pg (25.0-34.0); Mean Corpuscular Volume 98.0 fL (80.0-100.0); Platelet Count 53 K/uL (130-400); RDW Standard Deviation 51.9 fL (36.4-46.3); Red Blood Count 2.99 M/uL (4.70-6.10); White Blood Count 3.79 K/ul (4.8-10.8)
[2025-03-03 06:50] LABS: Anion Gap 7.0 (3-11); Blood Urea Nitrogen 20.0 mg/dl (6-23); Calcium 8.1 mg/dl (8.6-10.3); Carbon Dioxide 23.0 mmol/L (21-32); Chloride 104.0 mmol/L (98-107); Creatinine Clr Calc Pharmacy 92.6 ml/min; Glucose 105.0 mg/dl (70-99(Fasting)); Potassium 4.1 mmol/L (3.5-5.1); Sodium 134.0 mmol/L (136-145)
--- NOTE | 2025-03-03 09:38 | Hospitalist Progress Note ---
Date of Service March 03, 2025 Assessment & Plan (1) Elevated brain natriuretic peptide (BNP) level: (2) Pulmonary edema: (3) Fall from standing: (4) Closed fracture of neck of right femur: (5) Status post placement of cardiac pacemaker: (6) Trifascicular bundle branch block: (7) Thrombocytopenia: Plan Mr. Hi is an 84 y.o. M with past medical history of high degree AV block, ex- smoker, s/p pacemaker for trifasicular heart block, liver lesions presents to the hospital due to fall. #Fall - Fell on R hip while transferring from walker to chair, slipped - Previous history of 1-2 falls earlier this year - Hip Pelvis XR: acute fx of R femoral neck - Consulted Ortho for likely surgical intervention, scheduled for surgery today #SOB/CHF/Lung Mets? - Reported SOB in ED - EKG: atrial-sensed ventricular paced rhythm - Chest XR: diffuse pulmonary interstitial opacities, maybe atypical pneumonia, pulmonary edema possible but less likely - BNP 172, mildly elevated, likely due to trauma from fall - ECHO 03/14/24: EF 55-60%, mitral and tricuspid regurgitation, mild concentric LVH - Low suspicion for CHF exacerbation due to mildly elevated BNP and chronic, non-worsening nature of SOB - Medically cleared for surgery as benefit of surgical fixation outweighs risk - CT chest: gynecomastia secondary to liver dysfunction, hepatic cirrhosis with splenomegaly, no acute pulmonary pathology - likely could be related to possible emphysema - Albuterol and Tiotroprium PRN #Venous insufficiency - home Furosemide held #S/p cardiac pacemaker - for trifascicular heart block and syncopal episodes #Cirrhosis - Likely cause of thrombocytopenia - INR 1.2, Albumin 3.1 #Thrombocytopenia - Likely due to cirrhosis - Baseline plt count 50-69 Dispo: med-surg VTE Prophylaxis: SCDs Diet: Heart healthy Code Status: Full Admission and Anticipated Discharge Date Admission Date: March 02, 2025 Supervising Physician Co-Signing Physician Notes I personally examined the patient and verified all cisse points of history and exam, discussed case, and agree with decision making with Dr Colin no acute complaints. for surgery later today vitals noted nad heent nc at mmm breathing unlabored no accessory muscles good effort skin no rashes no pallor or icterus. labs and diagnostics noted osteoporotic hip fx - for surgery today. while he is certainly higher risk overall due to cirrhosis, thrombocytopenia - d/w him/ yesterday that risks of untreated hip fracture are catastrophic, and therefore benefits of surgery still appear to outweigh the risks even with his comorbidities -outpt bone health management chronic dyspnea - CT chest with emphysema - d/w pt. given this finding and chronic dyspnea/[place] - will initiate inhaler regimen assuming probable COPD - obviously will need PFTs as outpt to them tailor inhaler regimen (if no COPD then would manage for sx control, if (+) for airflow obstruction manage by guidelines) cirrhosis - seems to be fairly stable, appears compensated. consider further w/u of liver masses first noted ~2022 - less emergent than any of above so will discuss further post op (monique to ensure no w/u done outside our system to avoid redundancy) otherwise as above Subjective Mr. Hi is an 84 y.o. M with past medical history of thrombocytopenia, ex- smoker, s/p pacemaker for trifascicular heart block, liver lesions presents to the hospital due to fall. He states he is still having pain in his R hip area, but is otherwise stable since yesterday. Denies CP, SOB, AP, N/V, fevers, chills. Review of Systems Constitutional: as per Subjective / HPI Physical Exam Constitutional: WD/WN, vitals as above Respiratory: normal respiratory effort and + audible wheezes (mild expiratory bilaterally) Cardiovascular: RRR, no murmur, no edema Gastrointestinal (Abdomen): normal bowel sounds, soft, nontender, no hepatosplenomegaly Musculoskeletal: RLE is externally rotated and shortened Skin: + ecchymosis (b/l UE, baseline) Psychiatric: A+Ox3, euthymic affect Results & Data Results & Data Vital Signs (Past 12 Hours) Vital Signs Temp Pulse Resp BP Pulse Ox O2 Del Method 03/03/25 07:40 36.9 C 79 20 104/59 L 93 Room Air 03/02/25 22:40 36.5 C 92 H 17 160/65 H 95 Room Air 03/02/25 22:10 87 18 132/60 93 Room Air Resident Activity Tracking Resident Involvement: Resident Care Provided Care Provided: Adult Hospital Medicine
--- NOTE | 2025-03-03 09:45 | Orthopedic Consultation ---
Date of Consultation March 03, 2025 Assessment & Plan (1) Closed fracture of neck of right femur: Patient with a fall yesterday resulting in a right femur fracture inability to weight-bear. Patient evaluated at bedside. Emergency department and hospitalist records were reviewed. Labs were also reviewed. Notable for hemoglobin 10.5 and platelets of 53. History of thrombocytopenia. PT, INR, and APTT all elevated likely secondary to cirrhosis. Dr. Hernández evaluated the patient and the risks and benefits of surgery were reviewed in detail and patient signed the informed consent form for surgery. Available in chart. He is currently NPO. Plan will be to take him to surgery later today. Patient has been medically cleared for surgery noting the risks and benefits given his comorbidities. Patient still in agreement. Will continue to follow after surgery. (2) Thrombocytopenia: (3) Cirrhosis: Supervising Physician Co-Signing Physician Notes I saw and examined the patient, reviewed his imaging findings, formulated the above plan, and performed the substantive portion of the visit. Plan to take patient to the operating room today for a long intramedullary nail. High risk for medical complications secondary to his thrombocytopenia and cirrhosis. Plan to readmit to the hospitalist service after surgery. History of Present Illness Attending Physician: Ryder Cannon DO History of Present Illness Alphonse Hi is an 84-year-old male who presented to the emergency department after falling onto his right side with a chief complaint of right hip pain. He was attempting to sit down in his recliner and fell off the side landing on his right hip. Patient was evaluated in the emergency department, found to have a right subtrochanteric femur fracture, and subsequently admitted under the hospitalist service. Orthopedics was consulted for management of his hip fracture. Patient denies any numbness or tingling in his toes. Denies any other pain from the fall. He does have a history of cirrhosis and history of thrombocytopenia. Allergies Allergy/AdvReac Type Severity Reaction Status Date / Time No Known Allergies Allergy Verified 03/02/25 17:25 Home Medications Medication Instructions Recorded Confirmed Type rejpofim-mzv-agefp acid 0.4 1 tab PO DAILY 09/16/22 03/02/25 History mg-lycopene 300 mcg-lutein 250 mcg tablet (Centrum Silver) folic acid 1 mg tablet 1 mg PO QAM #30 tabs 09/21/22 03/02/25 Rx azelastine 137 mcg (0.1 %) nasal 1 spray intranasal AMHS 03/13/24 03/02/25 History spray calcium carbonate 600 mg PO BIDM 03/13/24 03/02/25 History spironolactone 25 mg tablet 25 mg PO QAM 03/13/24 03/02/25 History thiamine HCl (vitamin B1) 100 mg 100 mg PO QAM 03/13/24 03/02/25 History tablet furosemide 40 mg tablet 80 mg PO QAM 03/02/25 03/02/25 History potassium 99 mg tablet 99 mg PO Q OTHER DAY 03/02/25 03/02/25 History triamcinolone acetonide 0.5 % 1 applic topical BID 03/02/25 03/02/25 History topical cream Patient History Medical History Gout Surgical History Hx of knee surgery Hx of hernia repair Hx of cataract extraction Hx of sinus surgery History of selective laser trabeculoplasty Family History Brother Heart disease Social History Smoking Status: Former smoker Tobacco Type: Cigarettes Second Hand Exposure: No; Do You Dip or Chew Tobacco: No; Hx Alcohol Use: No Hx Substance Use: No Preferred Language: Haitian Communication Ability: Effective Change Management Required: No Beliefs That Will Affect Care: None Current Living Situation: Spouse Current Living Situation Comment: lives at home with Feels Safe at Home: Yes Assistive Devices: Glasses and Walker Physical Exam Constitutional: Resting comfortably in bed, laying down. Any movement causes significant pain in the right groin. Otherwise pleasant. Cardiovascular: DP pulses 2+ bilaterally Musculoskeletal: Right lower extremity: Leg is slightly shortened and externally rotated. There is tenderness about the right hip and groin area. There is swelling in the mid thigh. Able to plantarflex and dorsiflex the ankle. Moves all toes. Significant pain elicited in the right groin with any active range of motion. Skin: [place] and warm, dry. Closed. Right lower extremity. Neurologic: No sensory deficits bilateral toes to light touch Results & Data Vital Signs (Past 12 Hours) Vital Signs Temp Pulse Resp BP Pulse Ox O2 Del Method 03/03/25 07:40 98.5 F 79 20 104/59 L 93 Room Air 03/02/25 22:40 97.7 F 92 H 17 160/65 H 95 Room Air 03/02/25 22:10 87 18 132/60 93 Room Air Laboratory Results 03/03/25 03/02/25 03/02/25 06:00 17:35 17:09 WBC 3.79 L RBC 2.99 L Hgb 10.5 L Hct 29.3 L MCV 98.0 MCH 35.1 H MCHC 35.8 RDW Std Deviation 51.9 H RDW Coeff of Irene 14.5 Plt Count 53 L MPV 9.9 Immature Gran % (Auto) 0.5 Neut % (Auto) 67.7 Lymph % (Auto) 15.6 [place] % (Auto) 12.7 Eos % (Auto) 3.2 Baso % (Auto) 0.3 Neut # (Auto) 2.57 Lymph # (Auto) 0.59 L [place] # (Auto) 0.48 Eos # (Auto) 0.12 Baso # (Auto) 0.01 Immature Gran # (Auto) 0.02 PT INR APTT PTT Ratio Sodium 134 L Potassium 4.1 4.1 Chloride 104 Carbon Dioxide 23 Anion Gap 7 BUN 20 Creatinine 0.74 Est Cr Clr Drug Dosing 92.6 eGFR 90.47 BUN/Creatinine Ratio 27.0 H Glucose 105 H Calcium 8.1 L Total Bilirubin AST 34 ALT Alkaline Phosphatase Troponin I High Sens C-Reactive Protein 1.17 H B-Natriuretic Peptide Total Protein Albumin Globulin Albumin/Globulin Ratio Urine Color Yellow Urine Appearance Clear Urine pH 6.0 Ur Specific [place] 1.012 Urine Protein Negative Urine Glucose (UA) Negative Urine Ketones Negative Urine Blood Negative Urine Nitrite Negative Urine Bilirubin Negative Urine Urobilinogen Negative Ur Leukocyte Esterase 1+ H Urine WBC (Auto) 6-10 H Urine RBC (Auto) 0-2 U Hyaline Cast (Auto) 3-5 H U Epithel Cells (Auto) 0-2 Urine Bacteria (Auto) None Seen Urine Comment 03/02/25 16:46 WBC 4.62 L RBC 3.78 L Hgb 12.9 L Hct 37.4 L MCV 98.9 MCH 34.1 H MCHC 34.5 RDW Std Deviation 54.8 H RDW Coeff of Irene 14.8 H Plt Count 57 L MPV 10.2 Immature Gran % (Auto) 0.6 Neut % (Auto) 82.1 Lymph % (Auto) 6.9 [place] % (Auto) 9.1 Eos % (Auto) 0.9 Baso % (Auto) 0.4 Neut # (Auto) 3.79 Lymph # (Auto) 0.32 L [place] # (Auto) 0.42 Eos # (Auto) 0.04 Baso # (Auto) 0.02 Immature Gran # (Auto) 0.03 PT 12.7 H INR 1.2 H APTT 34 H PTT Ratio 1.3 Sodium 132 L Potassium TNP Chloride 101 Carbon Dioxide 23 Anion Gap 8 BUN 16 Creatinine 0.67 Est Cr Clr Drug Dosing Not Reportable eGFR 93.22 BUN/Creatinine Ratio 23.9 H Glucose 168 H Calcium 8.6 Total Bilirubin 1.9 H AST TNP ALT 20 Alkaline Phosphatase 93 Troponin I High Sens 20.7 H C-Reactive Protein B-Natriuretic Peptide 172 H Total Protein 6.7 Albumin 3.1 L Globulin 3.6 Albumin/Globulin Ratio 0.9 Urine Color Urine Appearance Urine pH Ur Specific [place] Urine Protein Urine Glucose (UA) Urine Ketones Urine Blood Urine Nitrite Urine Bilirubin Urine Urobilinogen Ur Leukocyte Esterase Urine WBC (Auto) Urine RBC (Auto) U Hyaline Cast (Auto) U Epithel Cells (Auto) Urine Bacteria (Auto) Urine Comment Diagnostic Findings Chest X-Ray 03/02/25 16:01 Technique: A frontal view of the chest was obtained Findings: There is multifocal interstitial prominence throughout both lungs. The heart size is at the upper limit of normal. No pleural effusion or pneumothorax is seen. No fracture is noted. There is a left chest wall pacemaker device Impression: Diffuse pulmonary interstitial opacities that may be due to atypical pneumonia. Pulmonary edema is possible but felt to be less likely ACT 112: Positive. There are findings on this exam that require communication between the performing entity and the patient following Patient Test Result Information Act ([place] ACT 112) guidelines. Electronically signed by Vamsi Olivera 03-02-2025 5:14 PM Hip/Pelvis X-Ray 03/02/25 16:01 Clinical History: Pain after fall 3 views of the pelvis and right hip are submitted for review. Findings: There is an acute comminuted intertrochanteric fracture of the right femoral neck, with mild displacement and angulation of fracture fragments. No subluxation or dislocation is seen. No significant arthritic changes are noted. No other osseous abnormality is identified. There are no radiopaque foreign bodies. Impression: Acute fracture of the right femoral neck ACT 112: Positive. There are findings on this exam that require communication between the performing entity and the patient following Patient Test Result Information Act ([place] ACT 112) guidelines. Electronically signed by Vamsi Olivera 03-02-2025 5:[address] 03/02/25 18:55 CT of the chest without contrast Technique: Noncontrast axial images of the chest. Coronal and sagittal reformatted images made available for review No comparison Findings: Gynecomastia. Exam limited secondary to lack of IV contrast. Left chest wall dual-lead intracardiac device. Diffuse right greater than left apical predominant bullous emphysematous change. Linear atelectasis in the lung bases. Traction bronchiectasis in the left lower lobe. Trace right pleural effusion. Limited evaluation the upper abdomen demonstrates hepatic cirrhosis with splenomegaly. Impression Gynecomastia likely secondary to liver dysfunction. Hepatic cirrhosis with splenomegaly incompletely evaluated on this exam No acute pulmonary pathology. Electronically signed by Ryder Guerra 03-02-2025 8:47 PM
--- NOTE | 2025-03-03 11:06 | Anesthesiology Consultation ---
Date of Service March 03, 2025 Assessment & Plan Chart Review Chart Review: Acceptable Risk for Surgery and Patient NOT seen in Pre Admission Testing Consults Requested none ASA ASA4 Proposed Anesthesia Anesthesia Type: General Anesthesia Line Insertion: Arterial line History Surgery Operation Date: 03/03/25 09:10 Proposed Procedures p Right Long Troch Nail - Layton Hernández MD Height/Weight Height: 5 ft 11 in Weight: 99.8 kg Allergies Allergy/AdvReac Type Severity Reaction Status Date / Time No Known Allergies Allergy Verified 03/02/25 17:25 Medications Home Medications Medication Instructions Recorded Confirmed Last Taken laaqpazc-sdc-qpdet acid 0.4 1 tab PO DAILY 09/16/22 03/02/25 03/13/24 mg-lycopene 300 mcg-lutein 250 mcg tablet (Centrum Silver) folic acid 1 mg tablet 1 mg PO QAM #30 tabs 09/21/22 03/02/25 03/13/24 azelastine 137 mcg (0.1 %) nasal 1 spray intranasal AMHS 03/13/24 03/02/25 03/13/24 spray calcium carbonate 600 mg PO BIDM 03/13/24 03/02/25 03/13/24 spironolactone 25 mg tablet 25 mg PO QAM 03/13/24 03/02/25 03/13/24 thiamine HCl (vitamin B1) 100 mg 100 mg PO QAM 03/13/24 03/02/25 03/13/24 tablet furosemide 40 mg tablet 80 mg PO QAM 03/02/25 03/02/25 Unknown potassium 99 mg tablet 99 mg PO Q OTHER DAY 03/02/25 03/02/25 Unknown triamcinolone acetonide 0.5 % 1 applic topical BID 03/02/25 03/02/25 Unknown topical cream Active Medications Generic Name Dose Route Start Last Admin Trade Name Freq PRN Reason Stop Dose Admin Acetaminophen 1,000 mg in 100 mls @ 400 mls/hr 03/03/25 01:00 03/03/25 09:25 Ofirmev IV 03/06/25 00:59 Infused Q8H YOHANNES Infusion Ketorolac Tromethamine 15 mg 03/02/25 18:55 03/02/25 22:58 Ketorolac Tromethamine 15 Mg/Ml Vial IV 03/07/25 18:54 15 mg Q6H PRN Administration Moderate Pain (Scale 4, 5, 6) Past Medical History Medical History Gout cirrhosis/anasarca ETOH abuse Ascites,portal HTN,esoph. varices;splenorenal shunt anemia,thrombocytopenia,pancytopenia COPD/bullous emphysema Trifascicular BBB; s/p pacemaker HTN HLD ASCVD Ao/Carotids ? Pulm. edema vs pneumonia liver lesions Exercise / Class Metabolic Activity III < 4 Walking/Shop/Light housework Past Family History Family History Brother Heart disease Past Surgical History Surgical History Hx of knee surgery Hx of hernia repair Hx of cataract extraction Hx of sinus surgery History of selective laser trabeculoplasty Past Anesthesia History No Hx of Anesthesia Complications and No Family Hx of Anesthesia Complications History of PONV No Hx of PONV and No Hx of Motion Sickness Social History Smoking Status: Former smoker Do You Dip or Chew Tobacco: No Smoking End Date: Pt quit 40 years ago Hx Alcohol Use: No Alcohol type: beer alcohol intake frequency: 3 or more drinks per day Hx Substance Use: No substance use type: does not use Physical Exam Vital Signs Last Vital Signs Temp 36.9 C 03/03/25 07:40 Pulse 79 03/03/25 07:40 Resp 20 03/03/25 07:40 BP 104/59 L 03/03/25 07:40 Pulse Ox 93 03/03/25 07:40 O2 Del Method Room Air 03/03/25 07:40 Testing Laboratory Results 03/03/25 06:00 03/03/25 06:00 PT 12.7 Seconds (9.0-12.0) H 03/02/25 16:46 INR 1.2 (0.9-1.1) H 03/02/25 16:46 APTT 34 Seconds (21-31) H 03/02/25 16:46 Urine Color Yellow 03/02/25 17:09 Urine Appearance Clear (Clear) 03/02/25 17:09 Urine pH 6.0 (4.5-7.5) 03/02/25 17:09 Ur Specific [place] 1.012 (1.000-1.030) 03/02/25 17:09 Urine Protein Negative (Negative) 03/02/25 17:09 Urine Glucose (UA) Negative (Negative) 03/02/25 17:09 Urine Ketones Negative (Negative) 03/02/25 17:09 Urine Nitrite Negative (Negative) 03/02/25 17:09 Ur Leukocyte Esterase 1+ (Negative) H 03/02/25 17:09 Urine WBC (Auto) 6-10 /hpf (0-5) H 03/02/25 17:09 Urine RBC (Auto) 0-2 /hpf (0-2) 03/02/25 17:09 U Hyaline Cast (Auto) 3-5 /lpf (0-2) H 03/02/25 17:09 U Epithel Cells (Auto) 0-2 /hpf (0-2) 03/02/25 17:09 Urine Bacteria (Auto) None Seen (None Seen) 03/02/25 17:09 Electrocardiogram Date: 03/02/25 Atrial sensed V paced @ 89 Chest X-Ray Date: 03/02/25 Findings: + infiltrate and + pulmonary vascular congestion Echocardiogram Date: 03/14/24 EF: 55% Other Findings: + LVH (mild) and + diastolic dysfunction (Grade 1) Valvular Disease: + no significant valvular disease AV mildly calcified,not stenosed Other Testing 03/02/2025-CT Chest-Bullous emphysema;LLL Bronchiectasis; ? pulm. edema
[2025-03-03] MEDS ORDERED: UMECLIDINIUM BROMIDE 62.5MCG/BLISTER 7 PUFFS/INHALER INH PRN (14:25)
--- NOTE | 2025-03-03 14:53 | Billing Data ---
Date of Service March 03, 2025 Coding Level of Care Code 56291 SUB INP/OBS CARE MIN
[2025-03-03] MEDS ORDERED: LIDOCAINE 2% 2 ML VIAL/AMP(20MG/ML) INFIL ONE (16:16)
[2025-03-03] MEDS ORDERED: PROPOFOL IV EMULSION 10 MG/ML 20 ML VIAL IV ONE (16:16)
[2025-03-03] MEDS ORDERED: SODIUM CHLORIDE 0.9% 100 ML IV PRN (16:30)
[2025-03-03] MEDS ORDERED: ONDANSETRON INJ 2 MG/ML 2 ML VIAL ONE (16:40)
[2025-03-03] MEDS ORDERED: ATROPINE SULFATE 0.1 MG/ML 10ML SYR IV PRN (16:52)
[2025-03-03] MEDS ORDERED: ONDANSETRON INJ 2 MG/ML 2 ML VIAL IV PRN (16:52)
[2025-03-03] MEDS ORDERED: ROCURONIUM BROMIDE 10 MG/ML 5 ML VIAL IV ONE ×2 (17:19→18:04)
[2025-03-03] MEDS ORDERED: TRANEXAMIC ACID / 0.7% NACL 1000MG/100ML BAG IV ONE (17:27)
[2025-03-03] MEDS: TRANEXAMIC ACID / 0.7% NACL 1,000 MG/100 ML BAG IV ONE (17:30)
[2025-03-03] MEDS ORDERED: PHENYLEPHRINE 100MCG/ML 5ML SYR ONE (18:14)
[2025-03-03] MEDS ORDERED: SUGAMMADEX SODIUM 200 MG/2 ML VIAL IV ONE (18:15)
[2025-03-03] MEDS: TRANEXAMIC ACID / 0.7% NACL 1000MG/100ML BAG IV ONE ×2 (18:38→18:57)
[2025-03-03] MEDS: BUPIVACAINE/EPINEPHRINE 0.5% MPF 1:200,000 30 ML VIAL ONE (18:57)
--- NOTE | 2025-03-03 19:10 | Operative Report ---
Post Operative Report Pre & Post Diagnosis Operation Date: 03/03/25 09:10 Pre-Op Diagnosis: Displaced right intertrochanteric femur fracture Post-Op Diagnosis: Displaced right intertrochanteric femur fracture I identified the patient and participated in the time-out.: Yes Procedure Operation Date: 03/03/25 09:10 Actual Procedures Close reduction, Long cephalomedullary Nail for Displaced right intertrochanteric femur fracture (Right) - Layton Hernández MD Surgeon Layton Hernández MD Cake Decorator Juan Ramon Sparrow PA-C. No resident or fellow was available to assist. Estimated Blood Loss 250 Findings Consistent with Post-Op Diagnosis Specimens None Anesthesia Type General Complications none Disposition Disposition: Recovery Room Indications 84-year-old male, fell yesterday at home. Immediate onset of right hip pain and inability to ambulate. Brought to the emergency room where x-rays demonstrated a displaced intertrochanteric femur fracture with extension below the lesser trochanter into the subtrochanteric region. I had a long discussion with him about his diagnosis and treatment options. Surgery is indicated to allow him to regain the ability to walk. He has significant medical history including cirrhosis of the liver secondary to alcohol abuse, thrombocytopenia, pulmonary edema, AV block, atrial fibrillation, and anemia which places him at high risk for surgical complications. I had a long discussion with the patient about the risks and benefits of surgery, alternatives to surgery, and expected outcomes. After reviewing all these he elected to proceed with surgery. All questions were answered. Informed consent was signed. Description of Procedure Patient was identified in the preoperative holding area where his surgical site was marked. He was brought back to the operating room where general anesthesia was administered on the hospital bed. He was placed in the foam boots then carefully moved onto the [place] table. He was gently slid down against the perineal post. The legs were scissored to facilitate lateral fluoroscopic imaging. All bony prominences were padded. Perioperative antibiotics and 1 g of IV tranexamic acid were administered. Fluoroscopy was brought in. Closed reduction was performed using combination of traction and internal rotation of the leg. Operative site was then prepped and draped in the usual sterile fashion. Prior to incision a multidisciplinary timeout was called. All in the room were in agreement. I began by marking out the tip of the greater trochanter on the skin. A 6 cm long incision was made starting about 3 cm proximal to this. I dissected down through subcutaneous tissues to level the fascia. A K wire was pierced through the fascia and the starting point was optimized on the AP and lateral fluoroscopic views. Once this was complete the K wire was driven down to the level of the lesser trochanter. The fascia was split in line with the K wire to allow the instruments to pass down onto the tip of the trochanter. Opening reamer was then placed. Ball-tipped guidewire was advanced down to the level of the superior pole of the patella. Measurement was taken at 400 mm. A 12.5 mm reamer was passed over the guidewire past the isthmus. There was minimal chatter. Therefore I elected to use an 11 mm diameter nail 400 mm in length. Synthes trochanteric fixation nail. The nail was slid down over the guidewire. The nail was advanced down to the appropriate level as seen on the AP fluoroscopic view of the hip. We checked distally at the knee and we are happy with the position of the nail. I then attached the outrigger device and made another small stab incision on the lateral aspect of the femur. trocars were advanced down on the lateral cortex of the femur. This was optimized on the AP and lateral fluoroscopic views. Guidewire was then drilled up into the femoral head. We took our measurement out of 120 mm. I elected to use 115 mm helical blade. Cortical reamer was used followed by the step reamer. I then tapped the helical blade up into the femoral head over the top of the K wire. Once it was in the appropriate position I then tightened the setscrew down onto the helical blade then backed it off a half turn. I then compressed the fracture site using the outrigger device. Once the fracture was compressed I then locked the helical blade in static position. Next, perfect circles technique was used to place a single cross lock screw through the dynamic hole distally. The screw measured 42 mm. Final fluoroscopic images were obtained. Patient was then awoke from anesthesia and transferred to the cover room in stable condition. Postoperative course: Patient will be admitted back to the hospitalist service. He will be weightbearing as tolerated with a walker and fall precautions. DVT prophylaxis per the primary team. He did lose 250 cc of blood so anesthesia is checking a hemoglobin and hematocrit in the recovery room. PT OT to begin tomorrow. I attest to the content of the Intraoperative Record and any orders documented therein. Any exceptions are noted below.
--- NOTE | 2025-03-03 19:17 | Operative Report ---
Post Operative Report Pre & Post Diagnosis Operation Date: 03/03/25 09:10 Pre-Op Diagnosis: Displaced right intertrochanteric femur fracture Post-Op Diagnosis: Displaced right intertrochanteric femur fracture I identified the patient and participated in the time-out.: Yes Procedure Operation Date: 03/03/25 09:10 Actual Procedures Close reduction, Long cephalomedullary Nail for Displaced right intertrochanteric femur fracture (Right) - Layton Hernández MD Surgeon Layton Hernández MD Twx Operator Juan Ramon Sparrow PA-C. No resident or fellow was available to assist. Estimated Blood Loss 250 Findings Consistent with Post-Op Diagnosis Specimens None Description of Procedure I was present for the entire case. I assisted with patient positioning, prepping, draping, retraction, suctioning, wound closure, dressing application. Please refer to Dr. Hernández's procedure note for full details. I attest to the content of the Intraoperative Record and any orders documented therein. Any exceptions are noted below.
[2025-03-03 19:39] LABS: Hematocrit (blood only) 32.3 % (42.0-52.0); Hemoglobin 11.0 g/dl (14.0-18.0); Immature Granulocytes # (auto) 0.03 K/uL (0.01-0.20); Immature Granulocytes % (auto) 0.5 %; Mean Corpuscular Hemoglobin 34.0 pg (25.0-34.0); Mean Corpuscular Volume 99.7 fL (80.0-100.0); Platelet Count 69 K/uL (130-400); RDW Standard Deviation 54.4 fL (36.4-46.3); Red Blood Count 3.24 M/uL (4.70-6.10); White Blood Count 5.99 K/ul (4.8-10.8)
--- NOTE | 2025-03-03 19:50 | Anesthesiology Progress Note ---
Date of Service March 03, 2025 Anesthesia Post Procedure Vital Signs Vital Signs: Temp Pulse Pulse Resp BP Pulse Ox O2 Del Method 03/03/25 19:45 36.5 C 87 13 117/49 L 93 Nasal Cannula 03/03/25 19:35 87 14 110/43 L 93 Room Air 03/03/25 19:25 87 20 108/49 L 93 Room Air 03/03/25 19:15 36.3 C L 86 21 105/50 L 96 Oxymask 03/03/25 17:00 37.1 C 80 20 115/70 94 Room Air 03/03/25 16:50 36.5 C 81 14 102/53 L 94 Room Air 03/03/25 11:07 36.8 C 82 18 110/60 93 Room Air 03/03/25 07:40 36.9 C 79 20 104/59 L 93 Room Air 03/02/25 22:40 36.5 C 92 H 17 160/65 H 95 Room Air 03/02/25 22:10 87 18 132/60 93 Room Air O2 Flow Rate 03/03/25 19:45 2 03/03/25 19:35 03/03/25 19:25 03/03/25 19:15 5 03/03/25 17:00 03/03/25 16:50 03/03/25 11:07 03/03/25 07:40 03/02/25 22:40 03/02/25 22:10 Pain Intensity Right Hip: Pain Intensity: 5 Transfer of Care Handoff Completed per policy Notes Mental Status: alert / awake / arousable and participated in evaluation Patient Amnestic to Procedure: Yes Nausea / Vomiting: adequately controlled Pain: adequately controlled Airway Patency, RR, SpO2: stable & adequate BP & HR: stable & adequate Hydration State: stable & adequate Anesthetic Complications: no major complications apparent and Pt Satisfied with anesthetic care
--- NOTE | 2025-03-03 20:46 | Electrocardiogram Report ---
Test Reason : Blood Pressure : */* mmHG Vent. Rate : 89 BPM Atrial Rate : 89 BPM P-R Int : 192 ms QRS Dur : 154 ms QT Int : 430 ms P-R-T Axes : 105 -29 104 degrees QTcB Int : 523 ms Atrial-sensed ventricular-paced rhythm Abnormal ECG When compared with ECG of 15-Mar-2024 05:43, Ventricular pacing is now present Confirmed by Efra Gallegos ([id number]) on 03/03/2025 8:45:28 PM Referred By: REFERRED SELF Confirmed By: Efra Gallegos
--- NOTE | 2025-03-03 21:39 | XRay Report ---
EXAM: XR femur RT 2V routine CLINICAL HISTORY: s/p ORIF right hip fracture. TECHNIQUE: X-ray images of the right femur were obtained in anteroposterior (AP) and lateral projections. COMPARISON: No prior studies are available for comparison. FINDINGS: Bone Structure: diffuse osteopenia Upper femur fracture with internal fixation by dynamic hip screw. The hardware is in place with no signs of complication Joint and Articular Surfaces: Mild osteoarthritic changes of the hip and knee joints IMPRESSION: Upper femur fracture with internal fixation. The hardware is in place with no signs of complications. Disclaimer: A subtle bone abnormality or fracture may not be readily apparent on X-rays. Clinical correlation and further imaging, including CT, MRI, or follow-up X-rays, are advised if clinically warranted. Electronically signed by Emir Gupta 03-03-2025 9:38 PM
--- NOTE | 2025-03-04 07:18 | Fluoroscopy Report ---
INTRAOPERATIVE RADIOGRAPHS CLINICAL HISTORY: Open reduction and internal fixation of the right proximal femur. Fluoro time: 103 seconds Ka,r: 34.74 mGy FINDINGS: 4 spot fluoroscopic views of the right femur are correlated with radiographs dated 5. There has been intertrochanteric and intramedullary nail fixation of a comminuted intertrochanteri c fracture of the right proximal femur with gnosticism of near-anatomic alignment. A single cortical lag screw transfixes the distal end of the intramedullary nail. There is persistent medial displacem ent of the lesser trochanter. The orthopedic hardware appears intact. IMPRESSION: Intraoperative images from open reduction and internal fixation of the right proximal fem ur. Electronically signed by: Kaushal Griffiths M.D. 03/04/2025 7:16 AM
--- NOTE | 2025-03-04 07:30 | Hospitalist Progress Note ---
Date of Service March 04, 2025 Assessment & Plan (1) Closed fracture of neck of right femur: (2) Fall from standing: (3) Osteoporosis: (4) Dyspnea on exertion: Plan Mr. Hi is an 84 y.o. M with past medical history of high degree AV block, ex- smoker, s/p pacemaker for trifasicular heart block, liver lesions presents to the hospital due to fall. S/p closed reduction for right upper femur fracture with internal fixation #Fall and Right Femur Fracture - Fell on R hip while transferring from walker to chair, slipped - Previous history of 1-2 falls earlier this year - Hip Pelvis XR: acute fx of R femoral neck - closed reduction for right upper femur fracture with internal fixation on 03/03 - XR Rt Femur 03/03: shows hardware in place - PT and OT on board - Switched Tylenol to PO prn for pain management - prn Oxycodone for pain management #Osteoporotic Fracture -plan as above -low impact fall described -Vitamin D: 36.2 -needs outpatient evaluation -likely needs DEXA scan -consider bisphosphate therapy #Chronic Dyspnea/Emphysema - Reported SOB in ED but per pt this is not new - EKG: atrial-sensed ventricular paced rhythm - Chest XR: diffuse pulmonary interstitial opacities, maybe atypical pneumonia, pulmonary edema possible but less likely - BNP 172 on 03/02, mildly elevated, likely due to trauma from fall - ECHO 03/14/24: EF 55-60%, mitral and tricuspid regurgitation, mild concentric LVH - Low suspicion for CHF exacerbation due to mildly elevated BNP and chronic, non-worsening nature of SOB - CT chest: gynecomastia secondary to liver dysfunction, hepatic cirrhosis with splenomegaly, no acute pulmonary pathology - likely related to possible emphysema; former smoker and worked in [employer] previously - on 2L NC - Albuterol and Tiotroprium PRN - will need outpatient PFTs, inhaler management depending on results and based on guidelines #Venous insufficiency - home Furosemide held #S/p cardiac pacemaker - for trifascicular heart block and syncopal episodes #Cirrhosis - seems stable - Likely cause of thrombocytopenia - INR 1.2, Albumin 3.1 #Thrombocytopenia - Likely due to cirrhosis - Baseline plt count 50-69, today 54 - CBC tomorrow, following Dispo: med-surg VTE Prophylaxis: SCDs Diet: Heart healthy Code Status: Full Admission and Anticipated Discharge Date Admission Date: March 02, 2025 Supervising Physician Co-Signing Physician Notes I personally examined the patient and verified all cisse points of history and exam, discussed case, and agree with decision making with Dr Langston hip pain when standing - otherwise no new complaints vitals noted nad heent nc at mmm breathing unlabored no accessory muscles good effort skin no rashes no pallor or icterus. labs and diagnostics noted osteoporotic hip fx - post op. PT/OT eval and treat. modify pain control (schedule tylenol, add prn 2.5mg oxycodone, encouraged to take pain medsprior to PT) -outpt bone health management chronic dyspnea - CT chest with emphysema - d/w pt. given this finding and chronic dyspnea/[place] - started inhaler regimen assuming probable COPD - obviously will need PFTs as outpt to them tailor inhaler regimen (if no COPD then would manage for sx control, if (+) for airflow obstruction manage by guidelines) cirrhosis - seems to be fairly stable, appears compensated. consider further w/u of liver masses first noted ~2022 - less emergent than any of above so will discuss further post op (monique to ensure no w/u done outside our system to avoid redundancy) due to cirrhosis, bleeding, (expected) acute blood loss anemia from fracture and surgery - for now DVT proph SCDs and ambulation (as possible) - currently while pharmacologic would be desired for DVT proph, i feel that the bleed risk (monique w bleeding yesterday and low plt) outweighs the benefit. otherwise as above Subjective Mr. Hi is an 84 y.o. M with past medical history of thrombocytopenia, ex- smoker, s/p pacemaker for trifascicular heart block, liver lesions/cirrhosis presents to the hospital due to fall. S/p closed reduction for right upper femur fracture with internal fixation. No overnight events. Today feels "about as expected." Reports pain 6-8/10 around surgery site. Still has some dyspnea when walking. He has been eating and drinking well without complaint. Breathing on 2L nasal cannula. He denies fever, chills, CP, abdominal pain, nausea, vomiting, constipation, diarrhea. Review of Systems Review of Systems: Otherwise neg Physical Exam Physical Exam: GA: well groomed, well nourished male in no apparent distress. AAOx3 HEENT: head normocephalic, atraumatic. EOMI. No conjunctival pallor RESP: vesicular breath sounds b/l. No wheezes, rhonchi, or rales CARDIOVASCULAR: S1 and S2 heard. No murmurs, rubs, or gallops. Radial pulses 2+ b/l GI: Normoactive bowel sounds, no tenderness or masses felt to palpation MSK: no gross abnormalities or focal deficits SKIN: warm, dry PSYCH: appropriate mood and affect NEURO: no focal deficits Results & Data Results & Data Vital Signs (Past 12 Hours) Vital Signs Temp Pulse Pulse Resp BP Pulse Ox O2 Del Method 03/04/25 07:10 36.3 C L 79 16 95/56 L 95 Nasal Cannula 03/04/25 04:31 93 Nasal Cannula 03/04/25 03:30 36.7 C 81 16 95/56 L 96 Nasal Cannula 03/03/25 23:06 105/62 95 Nasal Cannula 03/03/25 22:58 36.8 C 87 14 94/56 L 95 Nasal Cannula 03/03/25 22:00 36.7 C 93 H 16 106/66 97 Room Air 03/03/25 21:00 36.5 C 95 H 16 118/66 92 Nasal Cannula 03/03/25 20:30 36.4 C L 102 H 15 117/66 92 Nasal Cannula 03/03/25 20:00 Nasal Cannula 03/03/25 20:00 36.3 C L 94 H 20 124/60 92 Nasal Cannula 03/03/25 19:55 88 18 120/52 L 94 Nasal Cannula 03/03/25 19:45 36.5 C 87 13 117/49 L 93 Nasal Cannula 03/03/25 19:35 87 14 110/43 L 93 Room Air O2 Flow Rate 03/04/25 07:10 2 03/04/25 04:31 3 03/04/25 03:30 2 03/03/25 23:06 2 03/03/25 22:58 2 03/03/25 22:00 3 03/03/25 21:00 3 03/03/25 20:30 3 03/03/25 20:00 03/03/25 20:00 2 03/03/25 19:55 2 03/03/25 19:45 2 03/03/25 19:35 Resident Activity Tracking Resident Involvement: Resident Care Provided Care Provided: Adult Hospital Medicine (1) Closed fracture of neck of right femur Encounter type: initial encounter Qualified Code(s): S72.001A - Fracture of unspecified part of neck of right femur, initial encounter for closed fracture (2) Fall from standing Encounter type: initial encounter Qualified Code(s): W19.XXXA - Unspecified fall, initial encounter (3) Osteoporosis Osteoporosis type: age-related Presence of current pathological fracture: unspecified Qualified Code(s): M81.0 - Age-related osteoporosis without current pathological fracture
[2025-03-04 08:43] LABS: Hematocrit (blood only) 26.3 % (42.0-52.0); Hemoglobin 9.1 g/dl (14.0-18.0); Immature Granulocytes # (auto) 0.02 K/uL (0.01-0.20); Immature Granulocytes % (auto) 0.4 %; Mean Corpuscular Hemoglobin 34.3 pg (25.0-34.0); Mean Corpuscular Volume 99.2 fL (80.0-100.0); Platelet Count 54 K/uL (130-400); RDW Standard Deviation 54.3 fL (36.4-46.3); Red Blood Count 2.65 M/uL (4.70-6.10); White Blood Count 5.07 K/ul (4.8-10.8)
--- NOTE | 2025-03-04 09:14 | Orthopedic Progress Note ---
Date of Service March 04, 2025 Assessment & Plan (1) Closed fracture of neck of right femur: Plan: PT OT today. Weight-bear as tolerated on the right lower extremity with a walker and max assist as he is high risk for falls. DVT prophylaxis per the primary team. Recommend medical management for his knees which are arthritic. At his 2-week follow-up we could consider corticosteroid injections at that time if needed. Case management to see for discharge planning. Follow-up with orthopedics 2 weeks after surgery with PA and x-rays done at that time. (2) Thrombocytopenia: (3) Cirrhosis: Admission and Anticipated Discharge Date Admission Date: March 02, 2025 Subjective Patient seen and examined on a.m. rounds. He reports he still having some pain in his thigh as expected. No numbness or tingling down his leg. He was able to eat breakfast this morning. Medications are helping with his pain. Patient states that he is afraid about his knees more than his hip when he is going to get up. He says his knees hurt and sometimes they give out on him. He says he has had cortisone injection x 1 in the past in both knees. Physical Exam Physical Exam: On exam he is alert and oriented x 3 resting comfortably in bed no acute dis tress. Right lower extremity exam: He has some swelling in this thigh unchanged from yesterday. The middle dressing has a scant amount of serosanguineous drainage. This was left in place. The other 2 dressings are clean and dry. He is able to wiggle his toes and fire ankle dorsiflexors and plantar flexors. He reports sensation intact to moving light touch in the dorsal and plantar aspects of his foot. Results & Data Vital Signs (Past 12 Hours) Vital Signs Temp Pulse Resp BP Pulse Ox O2 Del Method O2 Flow Rate 03/04/25 07:20 Nasal Cannula 1.5 03/04/25 07:10 36.3 C L 79 16 95/56 L 95 Nasal Cannula 2 03/04/25 04:31 93 Nasal Cannula 3 03/04/25 03:30 36.7 C 81 16 95/56 L 96 Nasal Cannula 2 03/03/25 23:06 105/62 95 Nasal Cannula 2 03/03/25 22:58 36.8 C 87 14 94/56 L 95 Nasal Cannula 2 08/01/25 22:00 36.7 C 93 H 16 106/66 97 Room Air 3 Diagnostic Findings Postoperative femur x-rays done yesterday are independently interpreted. Hardware is in good position with no evidence of complication.
[2025-03-04 09:24] LABS: Anion Gap 5.0 (3-11); Blood Urea Nitrogen 32.0 mg/dl (6-23); Calcium 8.1 mg/dl (8.6-10.3); Carbon Dioxide 24.0 mmol/L (21-32); Chloride 103.0 mmol/L (98-107); Creatinine Clr Calc Pharmacy 51.5 ml/min; Glucose 113.0 mg/dl (70-99(Fasting)); Potassium 4.9 mmol/L (3.5-5.1); Sodium 132.0 mmol/L (136-145)
[2025-03-04] MEDS ORDERED: ACETAMINOPHEN 500 MG TAB PO PRN (11:21)
--- NOTE | 2025-03-04 12:10 | Billing Data ---
Date of Service March 04, 2025 Coding Level of Care Code 40912 SUB INP/OBS CARE
[2025-03-04] MEDS: ACETAMINOPHEN 325 MG TAB PO SCH (13:23)
[2025-03-04] MEDS: CALCIUM CARBONATE 500 MG CHEWABLE TAB PO SCH (13:23)
[2025-03-04] MEDS: SODIUM CHLORIDE 0.9% 500 ML IV SCH ×2 (16:27→21:40)
[2025-03-04] MEDS: ALBUMIN 25% 12.5 GM/50 ML VIAL IV ONE ×2 (21:53→23:35)
[2025-03-05] MEDS: SODIUM CHLORIDE 0.9% 250 ML IV ONE (00:23)
[2025-03-05] MEDS: ALBUMIN 25% 25 GM/100 ML VIAL IV ONE ×2 (00:31→23:34)
[2025-03-05] MEDS: SODIUM CHLORIDE 0.9% 1,000 ML IV ONE ×2 (01:44→23:21)
[2025-03-05 02:40] LABS: Hematocrit (blood only) 20.3 % (42.0-52.0); Hemoglobin 7.0 g/dl (14.0-18.0); Mean Corpuscular Hemoglobin 34.8 pg (25.0-34.0); Mean Corpuscular Volume 101.0 fL (80.0-100.0); Platelet Count 43 K/uL (130-400); RDW Standard Deviation 53.9 fL (36.4-46.3); Red Blood Count 2.01 M/uL (4.70-6.10); White Blood Count 2.97 K/ul (4.8-10.8)
[2025-03-05 02:41] LABS: Alanine Aminotransferase 7.0 U/L (7-52); Albumin Globulin Ratio 1.0 (0.9-2); Alkaline Phosphatase 64.0 U/L (34-104); Anion Gap 6.0 (3-11); Bilirubin,Total 1.8 mg/dl (0.2-1.0); Blood Urea Nitrogen 48.0 mg/dl (6-23); Calcium 7.7 mg/dl (8.6-10.3); Carbon Dioxide 23.0 mmol/L (21-32); Chloride 101.0 mmol/L (98-107); Creatinine Clr Calc Pharmacy 38.7 ml/min; Globulin 2.4 gm/dl (2.5-4.0); Glucose 125.0 mg/dl (70-99(Fasting)); Magnesium 1.7 mg/dl (1.7-2.4); Potassium 4.6 mmol/L (3.5-5.1); Sodium 130.0 mmol/L (136-145); Total Protein 4.9 gm/dl (6.0-8.3)
[2025-03-05 02:42] LABS: Immature Granulocytes # (auto) 0.01 K/uL (0.01-0.20); Immature Granulocytes % (auto) 0.3 %; Polychromasia 1+
[2025-03-05] MEDS ORDERED: SODIUM CHLORIDE 0.9% 100 ML IV PRN (03:02)
--- NOTE | 2025-03-05 04:32 | Communication Note ---
Date of Service: March 05, 2025 Notified by RN that patient's BP was 88/51. Previously documented vitals reviewed, patient somewhat hypotensive throughout the day but MAP<65 first documented ~1530, for which patient received additional 500ml maintenance fluids. Despite additional 750ml NS and 50g albumin, MAP remained below 65. Labs drawn and patient given additional 1L NS (for total 1.75L NS overnight), with subsequent improvement in BP. Throughout the night, patient denied any significant change in sx. Patient assessed at bedside, denied shortness of breath, orthopnea, chest pain, change in abdominal distention, RLE bleeding/ecchymosis, or worsening RLE swelling. Unknown how patient examined previously, but at time of examination abdomen was soft, nontender, not overtly distended. RLE mildly swollen but likely consistent with post-op status, dressings intact, clean and without saturation. No significant ecchymosis. Overnight labs significant for: - ALINE (Cr. 1.33 -> 1.77), likely secondary to renal hypoperfusion - Hgb 7.0 (down from 12.9 at time of admission) - based on downward trend, predisposition for bleeding d/t increased INR + thrombocytopenia, and evidence o f renal hypoperfusion, 1U pRBCs ordered. Repeat labs ordered for 0800.
[2025-03-05 04:34] LABS: INR 1.3 (0.9-1.1); Prothrombin Time 14.2 Seconds (9.0-12.0)
--- NOTE | 2025-03-05 06:41 | Hospitalist Progress Note ---
Date of Service March 05, 2025 Assessment & Plan (1) ALINE (acute kidney injury): (2) Anemia: (3) Closed fracture of neck of right femur: (4) Fall from standing: (5) Osteoporosis: (6) Dyspnea on exertion: Plan Mr. Hi is an 84 y.o. M with past medical history of high degree AV block, ex- smoker, s/p pacemaker for trifasicular heart block, liver lesions presents to the hospital due to fall. S/p closed reduction for right upper femur fracture with internal fixation. 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: 37 -s/p IV fluids -BMP scheduled 03/06, follow #Anemia -likely secondary to blood loss from fracture and surgery, cirrhosis -12.9 at time of admission -> 9.1 -> 7 -> 7.4 -> 7.7 -s/p 1 unit PRBCs and IV fluids -afternoon H&H: Hgb 7.7, trending up -CBC scheduled 03/06, follow #Fall and Right Femur Fracture - Fell on R hip while transferring from walker to chair, slipped - Previous history of 1-2 falls earlier this year - Hip Pelvis XR: acute fx of R femoral neck - closed reduction for right upper femur fracture with internal fixation on 03/03 - XR Rt Femur 03/03: shows hardware in place - PT and OT on board, appreciate recs - Tylenol prn for pain management - prn Oxycodone for pain management #Osteoporotic Fracture -plan as above -low impact fall described -Vitamin D: 36.2 -needs outpatient evaluation -likely needs DEXA scan -consider bisphosphate therapy #Chronic Dyspnea/Emphysema - Reported SOB in ED but per pt this is not new - EKG: atrial-sensed ventricular paced rhythm - Chest XR: diffuse pulmonary interstitial opacities, maybe atypical pneumonia, pulmonary edema possible but less likely - BNP 172 on 03/02, mildly elevated, likely due to trauma from fall - ECHO 03/14/24: EF 55-60%, mitral and tricuspid regurgitation, mild concentric LVH - Low suspicion for CHF exacerbation due to mildly elevated BNP and chronic, non-worsening nature of SOB - CT chest: gynecomastia secondary to liver dysfunction, hepatic cirrhosis with splenomegaly, no acute pulmonary pathology - likely related to possible emphysema; former smoker and worked in [employer] previously - on 2.5L NC - Albuterol and Tiotroprium PRN - will need outpatient PFTs, inhaler management depending on results and based on guidelines #Venous insufficiency - home Furosemide held #S/p cardiac pacemaker - for trifascicular heart block and syncopal episodes #Cirrhosis - seems stable - Likely cause of thrombocytopenia - INR 1.3, Albumin 2.5 #Thrombocytopenia - Likely due to cirrhosis - Baseline plt count 50-69, today 40 - CBC 03/06, follow Dispo: med-surg VTE Prophylaxis: SCDs Diet: Heart healthy Code Status: Full Admission and Anticipated Discharge Date Admission Date: March 02, 2025 Supervising Physician Co-Signing Physician Notes I personally examined the patient and verified all cisse points of history and exam, discussed case, and agree with decision making with Dr Langston ongoing hip pain but did better w therapy than yesterday. overnight events noted and updated pt and family on context - interestingly he didn't really feel much sx vitals noted nad heent nc at mmm breathing unlabored no accessory muscles good effort skin no rashes no pallor or icterus. labs and diagnostics noted osteoporotic hip fx - post op. PT/OT eval and treat. continue pain control -outpt bone health management acute blood loss anemia - not surprising given hip fracture and cirrhosis/chronic coagulopathy. hypotension and ALINE represented essentially a "low grade hypovolemic shock" starting that was fortunately quickly aborted by nursing vigilance and excellent overnight managmenet. follow clinically, repeat Hgb this afternoon and give additional transfusion if needed. chronic dyspnea - CT chest with emphysema - d/w pt. given this finding and chronic dyspnea/[place] - started inhaler regimen assuming probable COPD - obviously will need PFTs as outpt to them tailor inhaler regimen (if no COPD then would manage for sx control, if (+) for airflow obstruction manage by guidelines) cirrhosis - seems to be fairly stable, appears compensated. consider further w/u of liver masses first noted ~2022 - less emergent than any of above so will discuss further post op (monique to ensure no w/u done outside our system to avoid redundancy) due to cirrhosis, bleeding, (expected) acute blood loss anemia from fracture and surgery - for now DVT proph SCDs and ambulation (as possible) - currently while pharmacologic would be desired for DVT proph, i feel that the bleed risk (monique w bleeding and low plt) outweighs the benefit. otherwise as above Subjective Overnight pt was hypotensive that started in the afternoon. Asx when evaluated and received a total of 1.75L NS overnight. Creatinine went from 1.3 to 1.77 and Hgb 7.0 down from 12.9 at time of admission. One unit PRBCs was ordered and trasfused. Excellent nursing and medical care yesterday afternoon and overnight. This morning when evaluated at the bedside he was feeling fine. Still having some pain at the surgery site when ambulating that he rated 5/10 but could not characterize. He is still working with PT. He is not feeling tired, lightheaded, or dizzy. Denies fever, chills, SOB, CP, abdominal pain, nausea, vomiting. ROS otherwise negative. Review of Systems Review of Systems: otherwise neg Physical Exam Physical Exam: GA: well groomed, well nourished male in no apparent distress. AAOx3 HEENT: head normocephalic, atraumatic. EOMI. RESP: vesicular breath sounds b/l. No wheezes, rhonchi, or rales CARDIOVASCULAR: S1 and S2 heard. No murmurs, rubs, or gallops. Radial pulses 2+ b/l GI: Normoactive bowel sounds, no tenderness or masses felt to palpation MSK: no gross abnormalities or focal deficits. Has CDI dressing over surgical site on right thigh SKIN: warm, dry PSYCH: appropriate mood and affect NEURO: no focal deficits Results & Data Results & Data Vital Signs (Past 12 Hours) Vital Signs Temp Pulse Pulse Resp BP BP Pulse Ox 03/05/25 06:34 36.7 C 92 H 15 106/60 96 03/05/25 05:35 36.5 C 91 H 102/61 96 03/05/25 05:35 36.5 C 91 H 102/61 96 03/05/25 05:05 36.4 C L 93 H 16 104/61 96 03/05/25 04:35 36.6 C 96 H 16 103/61 95 03/05/25 04:05 36.6 C 96 H 16 109/63 95 03/05/25 03:50 36.7 C 97 H 103/57 L 03/05/25 03:20 36.7 C 95 H 16 98/57 L 95 03/05/25 02:53 91 H 97/55 L 93 03/05/25 02:30 90 100/57 L 92 03/05/25 02:13 102/59 L 03/05/25 01:44 96/56 L 93 03/05/25 01:20 88/46 L 96 03/05/25 00:50 80 16 83/41 L 95 03/05/25 00:03 36.6 C 79 15 88/50 L 94 03/04/25 22:51 77 18 90/45 L 94 03/04/25 21:20 36.7 C 79 15 88/51 L 94 03/04/25 19:30 O2 Del Method O2 Flow Rate 03/05/25 06:34 2.5 03/05/25 05:35 2.5 03/05/25 05:35 2.5 03/05/25 05:05 2.5 03/05/25 04:35 03/05/25 04:05 2.5 03/05/25 03:50 03/05/25 03:20 2.5 03/05/25 02:53 Nasal Cannula 2.5 03/05/25 02:30 Nasal Cannula 2 03/05/25 02:13 03/05/25 01:44 Nasal Cannula 2 03/05/25 01:20 Nasal Cannula 2 03/05/25 00:50 Nasal Cannula 2 03/05/25 00:03 Room Air 2 03/04/25 22:51 Nasal Cannula 2 03/04/25 21:20 Nasal Cannula 2 03/04/25 19:30 Nasal Cannula 2 Resident Activity Tracking Resident Involvement: Resident Care Provided Care Provided: Adult Hospital Medicine (3) Closed fracture of neck of right femur Encounter type: initial encounter Qualified Code(s): S72.001A - Fracture of unspecified part of neck of right femur, initial encounter for closed fracture (4) Fall from standing Encounter type: initial encounter Qualified Code(s): W19.XXXA - Unspecified fall, initial encounter (5) Osteoporosis Osteoporosis type: age-related Presence of current pathological fracture: unspecified Qualified Code(s): M81.0 - Age-related osteoporosis without current pathological fracture
[2025-03-05 08:04] LABS: Hematocrit (blood only) 21.1 % (42.0-52.0); Hemoglobin 7.4 g/dl (14.0-18.0); Mean Corpuscular Hemoglobin 34.4 pg (25.0-34.0); Mean Corpuscular Volume 98.1 fL (80.0-100.0); Platelet Count 40 K/uL (130-400); RDW Standard Deviation 54.4 fL (36.4-46.3); Red Blood Count 2.15 M/uL (4.70-6.10); White Blood Count 3.01 K/ul (4.8-10.8)
[2025-03-05] MEDS: CHOLECALCIFEROL 10 MCG (400 UNITS) TAB PO SCH (08:04)
[2025-03-05 09:03] LABS: Anion Gap 5.0 (3-11); Blood Urea Nitrogen 51.0 mg/dl (6-23); Calcium 7.7 mg/dl (8.6-10.3); Carbon Dioxide 24.0 mmol/L (21-32); Chloride 103.0 mmol/L (98-107); Glucose 127.0 mg/dl (70-99(Fasting)); Potassium 4.8 mmol/L (3.5-5.1); Sodium 132.0 mmol/L (136-145)
[2025-03-05 09:11] LABS: Creatinine Clr Calc Pharmacy 49.7 ml/min
--- NOTE | 2025-03-05 14:05 | Billing Data ---
Date of Service March 05, 2025 Coding Level of Care Code 26266 SUB INP/OBS CARE
--- NOTE | 2025-03-05 14:06 | Billing Data ---
Date of Service March 05, 2025 Coding Level of Care Code 43714 SUB INP/OBS CARE
[2025-03-05 14:17] LABS: Hematocrit (blood only) 22.6 % (42.0-52.0); Hemoglobin 7.7 g/dl (14.0-18.0)
[2025-03-06] MEDS: ALBUMIN 25% 25 GM/100 ML VIAL IV ONE (02:22)
[2025-03-06 02:52] LABS: Hematocrit (blood only) 20.8 % (42.0-52.0); Hemoglobin 7.2 g/dl (14.0-18.0); Mean Corpuscular Hemoglobin 34.1 pg (25.0-34.0); Mean Corpuscular Volume 98.6 fL (80.0-100.0); Platelet Count 46 K/uL (130-400); RDW Standard Deviation 54.1 fL (36.4-46.3); Red Blood Count 2.11 M/uL (4.70-6.10); White Blood Count 2.86 K/ul (4.8-10.8)
[2025-03-06 02:59] LABS: Anion Gap 5.0 (3-11); Blood Urea Nitrogen 53.0 mg/dl (6-23); Calcium 7.9 mg/dl (8.6-10.3); Carbon Dioxide 22.0 mmol/L (21-32); Chloride 102.0 mmol/L (98-107); Creatinine Clr Calc Pharmacy 55.7 ml/min; Glucose 122.0 mg/dl (70-99(Fasting)); Potassium 4.6 mmol/L (3.5-5.1); Sodium 129.0 mmol/L (136-145)
[2025-03-06] MEDS: SODIUM CHLORIDE 0.9% 500 ML IV ONE (03:59)
[2025-03-06 07:58] LABS: Hematocrit (blood only) 21.0 % (42.0-52.0); Hemoglobin 7.2 g/dl (14.0-18.0); Mean Corpuscular Hemoglobin 34.3 pg (25.0-34.0); Mean Corpuscular Volume 100.0 fL (80.0-100.0); Platelet Count 43 K/uL (130-400); RDW Standard Deviation 55.9 fL (36.4-46.3); Red Blood Count 2.10 M/uL (4.70-6.10); White Blood Count 2.39 K/ul (4.8-10.8)
--- NOTE | 2025-03-06 09:54 | Orthopedic Progress Note ---
Date of Service March 06, 2025 Assessment & Plan (1) Closed fracture of neck of right femur: Plan: Status post ORIF right hip fracture 03/03/[address] Hernández PT/OT Weight-bear as tolerated on the right lower extremity with a walker and max assist as he is high risk for falls. DVT prophylaxis and pain control per the primary team. Recommend medical management for his knees which are arthritic. At his 2-week follow-up we could consider corticosteroid injections at that time if needed. Continue ice as needed Dressing was left in place today, may reinforce as needed If fracture blisters pop may cover with a dry dressing, but would leave them alone for now Case management to see for discharge planning. Follow-up as scheduled with orthopedics 2 weeks after surgery with PA and x-rays done at that time. Admission and Anticipated Discharge Date Admission Date: March 02, 2025 Subjective Patient was seen and examined bedside. He reports he is having pain this morning. He was not able to get on the bedside commode and stand on the leg this morning but he was able to do this with therapy over the weekend. Denies any numbness or tingling. Physical Exam Physical Exam: Dressings are clean, dry and intact. It appears he has some fracture blisters noted underneath of the Tegaderm. Dressing was left in place today. Thigh was soft and compressible however tender to the touch. He can bend his knee slightly with some assistance. He is unable to do a straight leg raise. He can freely wiggle his toes and pump his ankle up and down with 4-5 strength with plantarflexion 3-5 strength with dorsiflexion. Sensation intact distally to light touch. Calf soft and compressible. He can tolerate some gentle passive motion with abduction and adduction of his hip and some slight flexion Results & Data Vital Signs (Past 12 Hours) Vital Signs Temp Pulse Resp BP Pulse Ox O2 Del Method O2 Flow Rate 03/06/25 08:25 Nasal Cannula 3 03/06/25 07:47 36.8 C 86 18 100/60 93 Nasal Cannula 2 03/06/25 04:55 36.8 C 75 16 96/55 L 95 Nasal Cannula 2 03/06/25 01:31 36.7 C 80 16 92/54 L 95 Nasal Cannula 2 03/05/25 22:01 36.8 C 78 16 87/51 L 94 Nasal Cannula 2 (1) Closed fracture of neck of right femur Encounter type: initial encounter Qualified Code(s): S72.001A - Fracture of unspecified part of neck of right femur, initial encounter for closed fracture
--- NOTE | 2025-03-06 12:16 | Hospitalist Progress Note ---
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 #age-related osteoporotic right femoral neck fracture, - -s/p closed reduction with troch nail on 03/[address] Hernández, [facility] -25-OH Vitamin D level - 36 -PT/OT as ablve -change PO pain meds to norco prn -IV dilaudid prn for severe pain -stop toradol due to h/o esophageal varices, etc. #ALINE - -peak Cr 1.77 -admission Cr 0.74 -likely due to hypotension/renal hypoperfusion in the setting of cirrhosis -modestly improved today - Cr 1.23 -BMP am -doubt hepatorenal syndrome #hypotension - -2nd to acute blood loss anemia in the setting of advanced cirrhosis -s/p PRBCs, IV fluids, albumin IV -required much of the above overnight -give 250ml of isotonic fluid now -then start midodrine 2.5mg TID -tomorrow am, if respiratory status is stable, consider 1 additional unit of blood #cirrhosis - -2nd to h/o etoh abuse? -advanced; previous CT a/p in 2022 with esophageal varices, splenomegaly, etc. -markedly decompensated with pulmonary edema/anasarca -typically takes 80mg of PO lasix -will give lasix 20mg IV x 1 now -diet - should be 2 gram salt restriction #hepatic encephalopathy - -lactulose 30gm x 1 now -aim for 3 BMs/day #acute blood loss anemia - -2nd to right hip fracture, perioperative blood loss, frequent phlebotomy, etc. -cannot rule out GI losses but less likely -admit hemoglobin 12.9 -hemoglobin now <7.5 -he is s/p 1 unit of PRBCs this admission -ideally he is transfused again, but with pulmonary edema will defer at this time -attempt to diurese, and if respiratory status is better tomorrow, then transfuse at that time -CBC in am #pancytopenia - -likely 2nd to advanced cirrhosis -also, in 2022, flow cytometry suggested he had B cell lymphoma - but he never had f/u for such -check TSH, B12, folate in am -serial CBC -transfuse as needed #acute post-op pulmonary insufficiency - -suspect 2nd to pulmonary edema -diurese -underlying COPD could be contributing as well #Chronic Dyspnea/Emphysema - -2nd to COPD #Venous insufficiency - -resume lasix today (IV) #s/p cardiac pacemaker - -placed for high-degree AV block -follows with [facility] -Supply Vision device #Thrombocytopenia - -Likely due to cirrhosis/hypersplenism -Baseline platelet count 50-70 -now in the 40s -trend the CBC #B-cell lymphoma - -s/p liver biopsy (numerous liver lesions on CT 2022) -s/p flow cytometry in 2022 -highly suggestive of B-Cell lymphoma -will need to inquire with if he ever had follow-up with oncology for this issue #DVT proph - -with low platelets, ABLA, etc avoid chemical means at this time -recheck CBC am attempted to call pt's this evening, no answer -- left message Admission and Anticipated Discharge Date Admission Date: March 02, 2025 Subjective patient had no stools since admission, then finally had a stool early this afternoon patient was resting in bed he c/o significant right hip pain he is eating poorly - not much appetite I asked him if he knew about his cirrhosis and he did respond yes I told him that in 2022 his lab work was suggestive of lymphoma; I asked if he had follow-up for this and he said no patient c/o dyspnea with any movement even in the bed denies pain in his abdomen or chest Review of Systems Review of Systems: CV - no chest pain; severe edema of legs pulm - dyspnea w/ minimal exertion GI - no N/V Physical Exam Physical Exam: gen - looks chronically unwell, dyspneic with rolling over in bed, seems modestly confused neck - JVD present mouth - MMM heart - RRR, s1 s2, 2/6 systolic murmur LSB lungs - b/l crackles in the bases with b/l wheezes, tachypneic when trying to roll in bed abd - distended (ascites?); NT; BS+; no caput medosa - moderate scrotal edema, waldrop in place ext - right leg with severe edema R thigh, and 2+ edema from knee to foot on right; 1-2+ edema entire left leg from foot to thigh; pulses b/l feet 2+ skin - incisions clean lateral right thigh; ecchymoses undersurface of right hip neuro - asterixis + Results & Data Results & Data Vital Signs (Past 12 Hours) Vital Signs Temp Pulse Resp BP Pulse Ox O2 Del Method O2 Flow Rate 03/06/25 08:25 Nasal Cannula 3 03/06/25 07:47 36.8 C 86 18 100/60 93 Nasal Cannula 2 03/06/25 04:55 36.8 C 75 16 96/55 L 95 Nasal Cannula 2 03/06/25 01:31 36.7 C 80 16 92/54 L 95 Nasal Cannula 2 Laboratory Results Laboratory Results - last 24 hr 03/03/25 03/06/25 03/06/25 16:37 02:15 07:34 WBC 2.86 L 2.39 L RBC 2.11 L 2.10 L Hgb 7.2 L 7.2 L Hct 20.8 L* 21.0 L MCV 98.6 100.0 MCH 34.1 H 34.3 H MCHC 34.6 34.3 RDW Std Deviation 54.1 H 55.9 H RDW Coeff of Irene 15.0 H 15.3 H Plt Count 46 L 43 L MPV 10.5 10.4 Sodium 129 L Potassium 4.6 Chloride 102 Carbon Dioxide 22 Anion Gap 5 BUN 53 H Creatinine 1.23 Est Cr Clr Drug Dosing 55.7 eGFR 58.62 BUN/Creatinine Ratio 43.1 H Glucose 122 H Calcium 7.9 L Crossmatch See Detail PG Care Time/CCT Total # of Minutes Spent Total Time Spent with Patient: Total time spent is greater than 50% in coordination of care (as documented) at patient's floor/unit and/or counseling patient: Coding Level of Care Code 42075 SUB INP/OBS CARE 3/50MIN Diagnoses Age-related osteoporosis with current pathological fracture, right femur, subsequent encounter for fracture with routine healing M80.051D Pancytopenia D61.818 ALINE (acute kidney injury) N17.9 Age related osteoporosis, unspecified pathological fracture presence M81.0 Osteoporosis type: age-related Presence of current pathological fracture: unspecified Acute postoperative pulmonary insufficiency J95.2 Anasarca R60.1 Decompensated hepatic cirrhosis K72.90; K74.60 Status cardiac pacemaker Z95.0 Acute blood loss anemia D62 B-cell lymphoma C85.10 Hepatic encephalopathy K76.82 (4) Osteoporosis Osteoporosis type: age-related Presence of current pathological fracture: unspecified Qualified Code(s): M81.0 - Age-related osteoporosis without current pathological fracture
[2025-03-06] MEDS: MIDODRINE HCL 2.5 MG TAB PO SCH (13:36)
[2025-03-06] MEDS: LACTULOSE SYRUP 20 GM/30 ML UDC PO STA (13:37)
[2025-03-06] MEDS: FUROSEMIDE INJ 20 MG/2 ML VIAL IV ONE (13:48)
[2025-03-06] MEDS ORDERED: Nursing to Pharmacy Communication SCH (14:30)
[2025-03-06] MEDS ORDERED: FUROSEMIDE INJ 20 MG/2 ML VIAL IV ONE (14:30)
[2025-03-06] MEDS: FUROSEMIDE 40 MG/4 ML VIAL IV ONE (15:44)
[2025-03-07 06:48] LABS: Hematocrit (blood only) 22.1 % (42.0-52.0); Hemoglobin 7.6 g/dl (14.0-18.0); Immature Granulocytes # (auto) 0.02 K/uL (0.01-0.20); Immature Granulocytes % (auto) 0.7 %; Mean Corpuscular Hemoglobin 34.4 pg (25.0-34.0); Mean Corpuscular Volume 100.0 fL (80.0-100.0); Platelet Count 58 K/uL (130-400); RDW Standard Deviation 55.0 fL (36.4-46.3); Red Blood Count 2.21 M/uL (4.70-6.10); White Blood Count 2.89 K/ul (4.8-10.8)
[2025-03-07 07:04] LABS: Anion Gap 4.0 (3-11); Blood Urea Nitrogen 30.0 mg/dl (6-23); Calcium 8.3 mg/dl (8.6-10.3); Carbon Dioxide 23.0 mmol/L (21-32); Chloride 107.0 mmol/L (98-107); Creatinine Clr Calc Pharmacy 103.9 ml/min; Glucose 141.0 mg/dl (70-99(Fasting)); Magnesium 1.8 mg/dl (1.7-2.4); Potassium 4.3 mmol/L (3.5-5.1); Sodium 134.0 mmol/L (136-145)
[2025-03-07 07:14] LABS: RBC Morphology Unremarkable
[2025-03-07 07:18] LABS: Thyroid Stimulating Hormone 2.058 uIu/ml (0.300-4.500)
[2025-03-07 07:28] LABS: Folate (Folic Acid),Ser orPlas 15.01 ng/ml (>5.38)
[2025-03-07 07:29] LABS: Vitamin B12 669.0 pg/ml (180-914)
[2025-03-07] MEDS: FUROSEMIDE INJ 20 MG/2 ML VIAL IV ONE (08:36)
--- NOTE | 2025-03-07 09:00 | Orthopedic Progress Note ---
Date of Service March 07, 2025 Assessment & Plan (1) Closed fracture of neck of right femur: Plan: Postop day #4 status post ORIF right hip fracture 03/03/[address] Hernández Serous fluid-filled blisters under the middle Tegaderm dressing have not changed since yesterday. These are still intact and were left in place. There are no blisters outside the Tegaderm dressing. The other dressings are clean, dry, and intact and were also left in place. Please notify us if blisters pop, would need a new dressing at that point. PT/OT Weight-bear as tolerated on the right lower extremity with a walker and max assist as he is high risk for falls. DVT prophylaxis and pain control per the primary team. Patient did not mention his knees today but we can consider corticosteroid injections into the knees at 2-week follow-up appointment. Asked nursing to apply NEVAEH stockings to help with the edema and to elevate the leg and ice. Case management for discharge planning when medically stable. Follow-up as scheduled with orthopedics 2 weeks after surgery with PA and x-rays done at that time. Admission and Anticipated Discharge Date Admission Date: March 02, 2025 Estela Cunha is seen sitting upright in bed eating breakfast this morning. He states that he is "doing." Denies any complaints at this time. No fevers or chills, chest pain or shortness of breath or significant pain. Physical Exam Constitutional: Sitting upright in bed eating breakfast. In no distress. Conversational. Cardiovascular: Right DP pulse 2+ Musculoskeletal: Right lower extremity: Tegaderm dressings are intact. Serous fluid filled blisters under the middle Tegaderm dressing remain intact. Other dressings are clean, dry, intact. No blisters are present outside the Tegaderm. Mild ecchymosis posterior to the middle lateral thigh incision. No surrounding erythema about any of the dressings. There is edema in the thigh but co mpartments are soft. No tenderness with palpation of the lower leg. Trace pitting edema in the lower leg. Patient unable to perform a straight leg raise. Tolerates some passive range of motion of the hip and knee. Strength 4/5 with ankle plantarflexion, dorsiflexion, eversion. Skin: [place] and warm, dry Neurologic: No sensory deficits right lower extremity to light touch L3-S1 distribution Results & Data Vital Signs (Past 12 Hours) Vital Signs Temp Pulse Resp BP BP Pulse Ox O2 Del Method 03/07/25 08:35 104/59 L 03/07/25 07:37 98.4 F 85 18 99/57 L 96/55 L 92 Nasal Cannula 03/06/25 23:42 99.0 F 84 18 108/61 96 Nasal Cannula O2 Flow Rate 03/07/25 08:35 03/07/25 07:37 3 03/06/25 23:42 3 Laboratory Results 03/07/25 03/03/25 05:37 16:37 WBC 2.89 L RBC 2.21 L Hgb 7.6 L Hct 22.1 L MCV 100.0 MCH 34.4 H MCHC 34.4 RDW Std Deviation 55.0 H RDW Coeff of Irene 15.2 H Plt Count 58 L MPV 10.5 Immature Gran % (Auto) 0.7 Neut % (Auto) 71.0 Lymph % (Auto) 13.1 [place] % (Auto) 12.1 Eos % (Auto) 2.8 Baso % (Auto) 0.3 Neut # (Auto) 2.05 Lymph # (Auto) 0.38 L [place] # (Auto) 0.35 Eos # (Auto) 0.08 Baso # (Auto) 0.01 Immature Gran # (Auto) 0.02 RBC Morphology Unremarkable Sodium 134 L Potassium 4.3 Chloride 107 Carbon Dioxide 23 Anion Gap 4 BUN 30 H D Creatinine 0.66 D Est Cr Clr Drug Dosing 103.9 eGFR 93.65 BUN/Creatinine Ratio 45.5 H Glucose 141 H Calcium 8.3 L Magnesium 1.8 Vitamin B12 669 Folate 15.01 TSH 2.058 Crossmatch See Detail (1) Closed fracture of neck of right femur Encounter type: initial encounter Qualified Code(s): S72.001A - Fracture of unspecified part of neck of right femur, initial encounter for closed fracture
[2025-03-07] MEDS: MIDODRINE HCL 2.5 MG TAB PO SCH (11:59)
[2025-03-07] MEDS: HYDROCODONE/ACETAMOPHEN 5/325MG TAB PO PRN (12:03)
--- NOTE | 2025-03-07 12:35 | Hospitalist Progress Note ---
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 #age-related osteoporotic right femoral neck fracture - -s/p closed reduction with troch nail on 03/[address] Hernández, [facility] -25-OH Vitamin D level - 36 -PT/OT as able, but rehab potential may be limited by his advanced cirrhosis, cardiopulmonary status, etc. -norco prn mild/mod pain -IV dilaudid prn for severe pain -stopped toradol due to h/o esophageal varices, etc. #ALINE - IMPROVED - -peak Cr 1.77 -admission Cr 0.74 -likely due to hypotension/renal hypoperfusion in the setting of cirrhosis -again improved today - Cr 0.6 today -BMP am -doubt he had hepatorenal syndrome #hypotension - -2nd to acute blood loss anemia in the setting of advanced cirrhosis -s/p PRBCs, IV fluids, albumin IV -required much of the above for several days post-op -started midodrine 2.5mg TID then titrated to 5mg TID -consider additional unit of PRBCs when volume status is improved #cirrhosis - decompensated/advanced - -2nd to h/o etoh abuse? -advanced; previous CT a/p in 2022 with esophageal varices, splenomegaly, etc. -markedly decompensated with pulmonary edema/anasarca -typically takes 80mg of PO lasix at home -s/p lasix 20mg IV x 1 yesterday with good response -repeat lasix IV again today -diet - 2 gram salt restriction -due to previous liver lesions in 2022, etc will obtain CT liver w/ and w/o contrast for additional information -if pt's BPs ever stabilize should consider low-dose propranolol or nadalol but hold at this time given his BPs #hepatic encephalopathy - ongoing - -lactulose 30gm x 1 again today -may need BID dosing -aim for 3 BMs/day at minimum #acute blood loss anemia - -2nd to right hip fracture, perioperative blood loss, frequent phlebotomy, etc. -cannot rule out GI losses but no report of melena/BRBPR -admit hemoglobin 12.9 -hemoglobin today 7.6 -he is s/p 1 unit of PRBCs earlier this admission -ideally he is transfused again, but with pulmonary edema will defer at this time -attempt to diurese, and if respiratory status is better tomorrow, then consi darin transfusion at that time -CBC in am #pancytopenia - -likely 2nd to advanced cirrhosis -also, in 2022, flow cytometry suggested he had B cell lymphoma - but he never had f/u for such -checked TSH, B12, folate - all wnl -serial CBC -transfuse as needed -consider formal heme/onc consult given the ?B cell lymphoma -CT a/p - look for lymphadenopathy #acute post-op pulmonary insufficiency - -suspect 2nd to pulmonary edema -diurese -underlying COPD could be contributing as well #Chronic Dyspnea/Emphysema - -2nd to COPD #Venous insufficiency - -resumed lasix #s/p cardiac pacemaker - -placed for high-degree AV block -follows with [facility] -Trivedi device #Thrombocytopenia - -Likely due to cirrhosis/hypersplenism -Baseline platelet count 50-70 -bottomed in the 40s, slowly trending up -CBC am #B-cell lymphoma - -s/p liver biopsy (numerous liver lesions on CT 2022) - B cells noted on that biopsy -s/p flow cytometry in 2022 -highly suggestive of B-Cell lymphoma -never had follow-up with oncology for this issue following 2022 admission #DVT proph - -with low platelets, ABLA, esophageal varices, etc avoid chemical means at this time -poor candidate for any chemical DVT proph - bit of a quandary extensively updated at bedside today questions answered very poor prognosis in light of advanced cirrhosis and ?underlying lymphoma strongly consider palliative care consult even if he/his want ongoing routine care Admission and Anticipated Discharge Date Admission Date: March 02, 2025 Subjective ate a good breakfast this morning he was confused during the visit; unable to really offer a lot of information he did c/o right hip pain once again at bedside during the visit pt's confirms that following his 2022 hospitalization he never had GI follow-up for the cirrhosis; "he didn't want to go" pt's also mentioned that she was unaware of abnormal bone marrow testing from the 2022 hospitalization (she recalls that the liver biopsy was "inconclusive") he did not have f/u with oncology either pt's has noted increasing edema/swelling of abdomen last few months and that his "legs are always swollen" Review of Systems Review of Systems: cv - no chest pain pulm - dyspnea modestly improved, no cough GI - distended; is moving bowels 1-2x's/day musculo - ongoing right hip pain Physical Exam Physical Exam: gen - looks chronically unwell, less dyspnea today, ongoing confusion neck - JVD present - slightly improved mouth - MMM heart - RRR, s1 s2, 2/6 systolic murmur LSB lungs - b/l crackles in the bases remain; b/l wheezes are improved today; less tachypnea today abd - distended/body wall edema?; NT; BS+; no caput medosa - scrotal edema, waldrop in place ext - right leg with severe edema R thigh, and 1-2+ edema from knee to foot on right; 1+ edema entire left leg from foot to thigh; pulses b/l feet 2+ neuro - asterixis + psych - confused Results & Data Results & Data Vital Signs (Past 12 Hours) Vital Signs Temp Pulse Resp BP BP Pulse Ox O2 Del Method 03/07/25 11:51 83 102/51 L 98 Nasal Cannula 03/07/25 11:16 88 95 Nasal Cannula 03/07/25 09:58 Nasal Cannula 03/07/25 08:35 104/59 L 03/07/25 07:37 36.9 C 85 18 99/57 L 96/55 L 92 Nasal Cannula O2 Flow Rate 03/07/25 11:51 2 03/07/25 11:16 2 03/07/25 09:58 2 03/07/25 08:35 03/07/25 07:37 3 Laboratory Results Laboratory Results - last 24 hr 03/03/25 03/07/25 16:37 05:37 WBC 2.89 L RBC 2.21 L Hgb 7.6 L Hct 22.1 L MCV 100.0 MCH 34.4 H MCHC 34.4 RDW Std Deviation 55.0 H RDW Coeff of Irene 15.2 H Plt Count 58 L MPV 10.5 Immature Gran % (Auto) 0.7 Neut % (Auto) 71.0 Lymph % (Auto) 13.1 [place] % (Auto) 12.1 Eos % (Auto) 2.8 Baso % (Auto) 0.3 Neut # (Auto) 2.05 Lymph # (Auto) 0.38 L [place] # (Auto) 0.35 Eos # (Auto) 0.08 Baso # (Auto) 0.01 Immature Gran # (Auto) 0.02 RBC Morphology Unremarkable Peripher Smr Path Cons Sodium 134 L Potassium 4.3 Chloride 107 Carbon Dioxide 23 Anion Gap 4 BUN 30 H D Creatinine 0.66 D Est Cr Clr Drug Dosing 103.9 eGFR 93.65 BUN/Creatinine Ratio 45.5 H Glucose 141 H Calcium 8.3 L Magnesium 1.8 Vitamin B12 669 Folate 15.01 TSH 2.058 Crossmatch See Detail PG Care Time/CCT Total # of Minutes Spent Total Time Spent with Patient: Total time spent is greater than 50% in coordination of care (as documented) at patient's floor/unit and/or counseling patient: Coding Level of Care Code 07286 SUB INP/OBS CARE 350MIN Diagnoses Age-related osteoporosis with current pathological fracture, right femur, subsequent encounter for fracture with routine healing M80.051D Pancytopenia D61.818 ALINE (acute kidney injury) N17.9 Age related osteoporosis, unspecified pathological fracture presence M81.0 Osteoporosis type: age-related Presence of current pathological fracture: unspecified Acute postoperative pulmonary insufficiency J95.2 Anasarca R60.1 Decompensated hepatic cirrhosis K72.90; K74.60 Status cardiac pacemaker Z95.0 Acute blood loss anemia D62 B-cell lymphoma C85.10 Hepatic encephalopathy K76.82 (4) Osteoporosis Osteoporosis type: age-related Presence of current pathological fracture: unspecified Qualified Code(s): M81.0 - Age-related osteoporosis without current pathological fracture
[2025-03-07] MEDS: LACTULOSE SYRUP 20 GM/30 ML UDC PO STA (13:58)
[2025-03-07] MEDS: OPTIRAY 320 100ml IV ONE (15:05)
--- NOTE | 2025-03-07 15:52 | CT Scan Report ---
CT OF THE ABDOMEN WITH AND WITHOUT CONTRAST LIVER PROTOCOL CLINICAL HISTORY: cirrhosis, copious liver lesions CT '23, ?lymphoma COMPARISON STUDY: CT of the abdomen and pelvis September 16, 2022. TECHNIQUE: Unenhanced, arterial and venous phase imaging of the abdomen was performed. Intravenous in jection of 92 cc of Optiray 320 IV was uneventful. A dose lowering technique was utilized adhering to the principles of ALARA. FINDINGS: Cardiomegaly, pacer leads, small bilateral pleural effusions, interstitial pulmonary edema and gynecomastia within the lower chest are incidentally noted. Is no pneumatosis, free air or portal venous gas within the abdomen. As before, the liver is cirrhotic. Lateral segment and caudate hypert rophy with right hepatic lobe atrophy is again noted. This exam is compromised by suboptimal opacific ation and artifact. Several lateral segment hepatic lesions are noted. Overall, the number of hepatic hepatic lesions has decreased since CT of September 16, 2022. 2 lateral segment lesions persist. Thes e are best depicted on the unenhanced portion of this exam and are hyperdense. The largest is a 2.8 c m lesion on image 17 of 57. This measured 2.[address] of September 16, 2022. There is an additi onal 2.5 cm lateral segment lesion. Characterization is difficult on this examination however these d emonstrate minimal enhancement without washout. Moderate splenomegaly has mildly increased. Upper abd ominal collaterals are noted including a splenorenal shunt. There is body wall edema. Adrenal glands, kidneys and pancreas are unremarkable. There is no hydronephrosis. There is no pancreatic ductal dil atation. Caliber and wall thickness of visualized small and large bowel are normal. L2 compression fr acture with severe loss of vertebral body height and mild retropulsion is noted.. Body height loss torres s increased since radiographs of January 20, 2024. IMPRESSION: 1. Cirrhotic liver with manifestations of portal hypertension including splenomegaly and varices form ation. 2. Overall, decrease in conspicuity of hepatic lesions since CT of September 16, 2022. Two lateral se gment lesions, as described above, likely decreased since prior CT although characterization is diffi cult on this exam. These remain pathologically indeterminate and continued imaging follow-up is recom mended. If interval treatment, the findings suggest a treatment response. If no interval treatment, t he apparent lesions on prior study may have reflected regenerative nodules. 3. Cardiomegaly with evidence for pulmonary edema and small bilateral pleural effusions. ACT 112: Negative or not required by law. Electronically signed by: Boris Kraus M.D. 03/07/2025 3:50 PM
[2025-03-08 05:59] LABS: Hematocrit (blood only) 21.7 % (42.0-52.0); Hemoglobin 7.4 g/dl (14.0-18.0); Immature Granulocytes # (auto) 0.02 K/uL (0.01-0.20); Immature Granulocytes % (auto) 0.7 %; Mean Corpuscular Hemoglobin 34.4 pg (25.0-34.0); Mean Corpuscular Volume 100.9 fL (80.0-100.0); Platelet Count 57 K/uL (130-400); RDW Standard Deviation 57.2 fL (36.4-46.3); Red Blood Count 2.15 M/uL (4.70-6.10); White Blood Count 2.90 K/ul (4.8-10.8)
[2025-03-08 06:19] LABS: Anion Gap 4.0 (3-11); Blood Urea Nitrogen 25.0 mg/dl (6-23); Calcium 8.3 mg/dl (8.6-10.3); Carbon Dioxide 23.0 mmol/L (21-32); Chloride 107.0 mmol/L (98-107); Creatinine Clr Calc Pharmacy 116.2 ml/min; Glucose 118.0 mg/dl (70-99(Fasting)); Potassium 4.5 mmol/L (3.5-5.1); Sodium 134.0 mmol/L (136-145)
[2025-03-08 06:40] LABS: Polychromasia 1+
[2025-03-08] MEDS: LACTULOSE SYRUP 20 GM/30 ML UDC PO SCH ×2 (08:11→14:32)
[2025-03-08] MEDS: FUROSEMIDE INJ 20 MG/2 ML VIAL IV ONE (09:02)
--- NOTE | 2025-03-08 10:37 | Orthopedic Progress Note ---
Date of Service March 08, 2025 Assessment & Plan (1) Closed fracture of neck of right femur: Plan: Postop day #5 status post ORIF right hip fracture 03/03/[address] Hernández Serous fluid-filled blisters under the middle Tegaderm dressing remain intact. Dressings left in place. There are no blisters outside the Tegaderm dressing. The other dressings are clean, dry, and intact and were also left in place. Please notify us if blisters pop, would need a new dressing at that point. PT/OT Weight-bear as tolerated on the right lower extremity with a walker and max assist as he is high risk for falls. DVT prophylaxis and pain control per the primary team. Nursing stated hospitalist was hesitant to apply NEVAEH stockings given his edema. He currently is not receiving any DVT prophylaxis due to medical comorbidities. Patient with multiple medical problems currently being addressed. Per hospitalist note, there was discussion of palliative care consult. PT/OT recommending rehab. Agree patient not safe to return home at this time. Case management for discharge planning when medically stable. Follow-up as scheduled with orthopedics 2 weeks after surgery with PA and x- rays. Admission and Anticipated Discharge Date Admission Date: March 02, 2025 Subjective Patient seen in bed today. He does not have any complaints today. Has been working on moving his right leg while in bed. He is not having much pain in the hip or thigh. Denies any numbness or tingling in his toes. Denies any calf pain. Physical Exam Constitutional: Resting comfortably in bed sitting upright. Answers questions. Cardiovascular: Right DP pulse 2+ Musculoskeletal: Right lower extremity: Dressings over the 3 incisions on the lateral hip and thigh continue to remain intact. Serous fluid-filled blisters are still present under the middle dressing. These have not changed since yesterday. They have not ruptured. Ecchymotic changes posterior to the proximal to dressings. Patient able to actively initiate knee flexion. Unable to perform straight leg raise. I am able to passively flex his hip to 30 degrees. Strength 5/5 with ankle plantarflexion, dorsiflexion, eversion 1+ pitting edema in the foot and ankle. Trace pitting edema in the lower leg. The thigh has some diffuse edema however compartments are soft and there is no pitting component in the thigh. No calf tenderness. Skin: [place] and warm, dry Neurologic: No sensory deficits right lower extremity to light touch L3-S1 distribution Results & Data Vital Signs (Past 12 Hours) Vital Signs Temp Pulse Resp BP BP Pulse Ox O2 Del Method 03/08/25 08:01 98.2 F 80 19 100/54 L 96 Nasal Cannula 03/08/25 07:50 Nasal Cannula 03/08/25 06:34 95/54 L 03/08/25 06:08 95 Room Air 03/08/25 00:35 96 Nasal Cannula 03/07/25 23:18 98.8 F 91 H 16 121/69 95 Nasal Cannula O2 Flow Rate 03/08/25 08:01 2 03/08/25 07:50 2 03/08/25 06:34 03/08/25 06:08 2 03/08/25 00:35 2 03/07/25 23:18 2 Laboratory Results 03/08/25 05:24 WBC 2.90 L RBC 2.15 L Hgb 7.4 L Hct 21.7 L MCV 100.9 H MCH 34.4 H MCHC 34.1 RDW Std Deviation 57.2 H RDW Coeff of Irene 15.9 H Plt Count 57 L MPV 10.1 Immature Gran % (Auto) 0.7 Neut % (Auto) 68.0 Lymph % (Auto) 11.4 Mason % (Auto) 15.5 Eos % (Auto) 4.1 Baso % (Auto) 0.3 Neut # (Auto) 1.97 Lymph # (Auto) 0.33 L Mason # (Auto) 0.45 Eos # (Auto) 0.12 Baso # (Auto) 0.01 Immature Gran # (Auto) 0.02 Polychromasia 1+ Sodium 134 L Potassium 4.5 Chloride 107 Carbon Dioxide 23 Anion Gap 4 BUN 25 H Creatinine 0.59 L Est Cr Clr Drug Dosing 116.2 eGFR 96.87 BUN/Creatinine Ratio 42.4 H Glucose 118 H Calcium 8.3 L (1) Closed fracture of neck of right femur Encounter type: initial encounter Qualified Code(s): S72.001A - Fracture of unspecified part of neck of right femur, initial encounter for closed fracture
[2025-03-08] MEDS: SODIUM CHLORIDE 0.65% NA SOLN 45 ML (OCEAN) ONE (10:38)
--- NOTE | 2025-03-08 10:48 | XCELERA ---
[id number] [id number]
[2025-03-08] MEDS: SPIRONOLACTONE 25 MG TAB PO SCH (11:59)
--- NOTE | 2025-03-08 22:31 | Hospitalist Progress Note ---
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 #age-related osteoporotic right femoral neck fracture - -s/p closed reduction with troch nail on 03/[address] Hernández, [facility] -25-OH Vitamin D level - 36 -PT/OT as able, but rehab potential may be limited by his advanced cirrhosis, cardiopulmonary status, etc. -norco prn mild/mod pain : will consider removing norco in AM due to confusion. -IV dilaudid prn for severe pain -stopped toradol due to h/o esophageal varices, etc. #ALINE - IMPROVED - -peak Cr 1.77 -admission Cr 0.74 -likely due to hypotension/renal hypoperfusion in the setting of cirrhosis -appears at baseline, -doubt he had hepatorenal syndrome #hypotension - -2nd to acute blood loss anemia in the setting of advanced cirrhosis -s/p PRBCs, IV fluids, albumin IV -required much of the above for several days post-op -started midodrine 2.5mg TID then titrated to 5mg TID -consider additional unit of PRBCs when volume status is improved #cirrhosis - decompensated/advanced - -2nd to h/o etoh abuse? -advanced; previous CT a/p in 2022 with esophageal varices, splenomegaly, etc. -markedly decompensated with pulmonary edema/anasarca -typically takes 80mg of PO lasix at home -s/p lasix 20mg IV x 1 yesterday with good response -repeat lasix IV again today -diet - 2 gram salt restriction -added spironolactone in addition to his lasix -due to previous liver lesions in 2022, etc will obtain CT liver w/ and w/o contrast for additional information -if pt's BPs ever stabilize should consider low-dose propranolol or nadalol but hold at this time given his BPs #hepatic encephalopathy - ongoing - -increased lactulose to tid dosing. -aim for 3 BMs/day at minimum #acute blood loss anemia - -2nd to right hip fracture, perioperative blood loss, frequent phlebotomy, etc. -cannot rule out GI losses but no report of melena/BRBPR -admit hemoglobin 12.9 -hemoglobin today 7.6 -he is s/p 1 unit of PRBCs earlier this admission -holding transfusion due to pulmonary edema will defer at this time -attempt to diurese, and if respiratory status is better tomorrow, then consider transfusion at that time -CBC in am #pancytopenia - -likely 2nd to advanced cirrhosis -also, in 2022, flow cytometry suggested he had B cell lymphoma - but he never had f/u for such -checked TSH, B12, folate - all wnl -serial CBC -transfuse as needed -consider formal heme/onc consult given the ?B cell lymphoma -CT a/p - look for lymphadenopathy #acute post-op pulmonary insufficiency - -suspect 2nd to pulmonary edema -diurese -underlying COPD could be contributing as well #Chronic Dyspnea/Emphysema - -2nd to COPD #Venous insufficiency - -resumed lasix #s/p cardiac pacemaker - -placed for high-degree AV block -follows with [facility] -Trivedi device #Thrombocytopenia - -Likely due to cirrhosis/hypersplenism -Baseline platelet count 50-70 -bottomed in the 40s, slowly trending up -CBC am #B-cell lymphoma - -s/p liver biopsy (numerous liver lesions on CT 2022) - B cells noted on that biopsy -s/p flow cytometry in 2022 -highly suggestive of B-Cell lymphoma -never had follow-up with oncology for this issue following 2022 admission #DVT proph - -with low platelets, ABLA, esophageal varices, etc avoid chemical means at this time -poor candidate for any chemical DVT proph - bit of a quandary extensively updated at bedside today questions answered very poor prognosis in light of advanced cirrhosis and ?underlying lymphoma strongly consider palliative care consult even if he/his want ongoing routine care Admission and Anticipated Discharge Date Admission Date: March 02, 2025 Subjective Patient remains a poor historian. Patient denies any new complaints. D/W nurse, no bowel movements this AM, though appears less lethargic. Physical Exam Physical Exam: gen - looks chronically unwell, less confused neck - JVD present - slightly improved mouth - MMM heart - RRR, s1 s2, 2/6 systolic murmur LSB lungs - b/l crackles in the bases remain; b/l wheezes are improved today; less tachypnea today abd - distended/body wall edema?; NT; BS+; no caput medosa - scrotal edema, waldrop in place ext - right leg with severe edema R thigh, and 1-2+ edema from knee to foot on right; 1+ edema entire left leg from foot to thigh; pulses b/l feet 2+ Results & Data Results & Data Vital Signs (Past 12 Hours) Vital Signs Temp Pulse Resp BP BP Pulse Ox O2 Del Method 03/08/25 18:11 89 103/55 L 03/08/25 14:48 36.5 C 80 18 107/58 L 97 Oxymask 03/08/25 11:58 82 106/58 L 03/08/25 11:51 36.5 C 82 20 106/56 L 95 Oxymask 03/08/25 10:38 77 107/61 98 Oxymask O2 Flow Rate 03/08/25 18:11 03/08/25 14:48 2 03/08/25 11:58 03/08/25 11:51 2 03/08/25 10:38 2 PG Care Time/CCT Total # of Minutes Spent Total Time Spent with Patient: Total time spent is greater than 50% in coordination of care (as documented) at patient's floor/unit and/or counseling patient: Coding Level of Care Code 35706 SUB INP/OBS CARE 3/50MIN Diagnoses Age-related osteoporosis with current pathological fracture, right femur, subsequent encounter for fracture with routine healing M80.051D Pancytopenia D61.818 ALINE (acute kidney injury) N17.9 Age related osteoporosis, unspecified pathological fracture presence M81.0 Osteoporosis type: age-related Presence of current pathological fracture: unspecified Acute postoperative pulmonary insufficiency J95.2 Anasarca R60.1 Decompensated hepatic cirrhosis K72.90; K74.60 Status cardiac pacemaker Z95.0 Acute blood loss anemia D62 B-cell lymphoma C85.10 Hepatic encephalopathy K76.82 (4) Osteoporosis Osteoporosis type: age-related Presence of current pathological fracture: unspecified Qualified Code(s): M81.0 - Age-related osteoporosis without current pathological fracture
[2025-03-09 07:46] LABS: Hematocrit (blood only) 21.8 % (42.0-52.0); Hemoglobin 7.6 g/dl (14.0-18.0); Mean Corpuscular Hemoglobin 35.5 pg (25.0-34.0); Mean Corpuscular Volume 101.9 fL (80.0-100.0); Platelet Count 64 K/uL (130-400); RDW Standard Deviation 57.8 fL (36.4-46.3); Red Blood Count 2.14 M/uL (4.70-6.10); White Blood Count 3.44 K/ul (4.8-10.8)
[2025-03-09 08:01] LABS: Alanine Aminotransferase 9.0 U/L (7-52); Albumin Globulin Ratio 1.2 (0.9-2); Alkaline Phosphatase 64.0 U/L (34-104); Anion Gap 4.0 (3-11); Bilirubin,Total 2.6 mg/dl (0.2-1.0); Blood Urea Nitrogen 20.0 mg/dl (6-23); Calcium 8.2 mg/dl (8.6-10.3); Carbon Dioxide 23.0 mmol/L (21-32); Chloride 105.0 mmol/L (98-107); Creatinine Clr Calc Pharmacy 118.2 ml/min; Globulin 2.3 gm/dl (2.5-4.0); Glucose 116.0 mg/dl (70-99(Fasting)); Potassium 4.5 mmol/L (3.5-5.1); Sodium 132.0 mmol/L (136-145); Total Protein 5.0 gm/dl (6.0-8.3)
[2025-03-09] MEDS: FUROSEMIDE 40 MG TAB PO SCH (08:32)
[2025-03-09] MEDS: SPIRONOLACTONE 100 MG TAB PO SCH (08:32)
--- NOTE | 2025-03-09 08:47 | Orthopedic Progress Note ---
Date of Service March 09, 2025 Assessment & Plan (1) Closed fracture of neck of right femur: Plan: Postop day #6 status post ORIF right hip fracture 03/03/[address] Hernández Serous fluid-filled blisters under the middle Tegaderm dressing remain intact. Dressings left in place. There are no blisters outside the Tegaderm dressing. The other dressings are clean, dry, and intact and were also left in place. If blisters rupture may remove current dressing and apply Xeroform, 4 x 4's and paper tape dressing. Then may redress as needed. PT/OT Weight-bear as tolerated on the right lower extremity with a walker and max assist as he is high risk for falls. DVT prophylaxis and pain control per the primary team. Nursing stated hospitalist was hesitant to apply NEVAEH stockings given his edema.They have been using SCDs. He currently is not receiving any DVT prophylaxis due to medical comorbidities. Patient with multiple medical problems currently being addressed. Per hospitalist note, there was discussion of palliative care consult. PT/OT recommending rehab. Case management for discharge planning when medically stable. Follow-up as scheduled with orthopedics 2 weeks after surgery with PA and x- rays. Nursing will notify us with any wound issues. Will recheck in the AM. Admission and Anticipated Discharge Date Admission Date: March 02, 2025 Subjective Patient resting in bed, sitting up and eating breakfast. Denies pain in his right hip. Nursing has not changed dressing. She has noticed some dried fluid on his gown but there is no evidence of any wound drainage from the incisions. They have not needed to change the dressing. They have been elevating and using SCDs for DVT prophylaxis and controlling his fluid retention. Physical Exam Musculoskeletal: Exam of his right lower extremity: All 3 incision sites are clean, dry and intact. The gauze is not saturated. There are surrounding fracture blisters underneath the Tegaderm and around the 2 x 2 gauze on the middle incision. There is no active drainage. The blisters are still intact. There are no blisters that have expanded out from underneath the Tegaderm border. Mild edema bilateral lower extremities but elevated on 2 pillows Heels elevated off of bed. No skin breakdown, abrasions or blisters on his legs Tolerates logrolling of the right hip. He is unable to lift his leg. He has full strength with ankle dorsiflexion, plantarflexion, inversion eversion. Results & Data Vital Signs (Past 12 Hours) Vital Signs Temp Pulse Resp BP Pulse Ox O2 Del Method O2 Flow Rate 03/09/25 08:30 111/60 03/09/25 08:23 37.0 C 81 18 95/54 L 95 Oxymask 2 03/09/25 04:42 95 Oxymask 2 03/08/25 23:46 36.8 C 84 14 106/54 L 92 Oxymask 2 (1) Closed fracture of neck of right femur Encounter type: initial encounter Qualified Code(s): S72.001A - Fracture of unspecified part of neck of right femur, initial encounter for closed fracture
[2025-03-09] MEDS: ALBUTEROL HFA 8 GM INHALER INH PRN (14:33)
[2025-03-09] MEDS: ALBUMIN 25% 25 GM/100 ML VIAL IV ONE (16:19)
[2025-03-09] MEDS: FUROSEMIDE 40 MG/4 ML VIAL IV ONE (18:47)
[2025-03-09] MEDS: FUROSEMIDE 40 MG/4 ML VIAL IV SCH (18:54)
[2025-03-09] MEDS: ALBUT/IPRATROP 3MG/0.5MG NEB 3 ML VIAL NEB SCH (20:15)
--- NOTE | 2025-03-09 22:54 | Hospitalist Progress Note ---
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 #age-related osteoporotic right femoral neck fracture - -s/p closed reduction with troch nail on 03/[address] Hernández, [facility] -25-OH Vitamin D level - 36 -PT/OT as able, but rehab potential may be limited by his advanced cirrhosis, cardiopulmonary status, etc. -norco prn mild/mod pain : will consider removing norco in AM due to confusion. did not receive on 03/09 -IV dilaudid prn for severe pain -stopped toradol due to h/o esophageal varices, etc. #ALINE - IMPROVED - -peak Cr 1.77 -admission Cr 0.74 -likely due to hypotension/renal hypoperfusion in the setting of cirrhosis -appears at baseline, -doubt he had hepatorenal syndrome #hypotension - -2nd to acute blood loss anemia in the setting of advanced cirrhosis -s/p PRBCs, IV fluids, albumin IV -required much of the above for several days post-op -started midodrine 2.5mg TID then titrated to 5mg TID -consider additional unit of PRBCs when volume status is improved #cirrhosis - decompensated/advanced - -2nd to h/o etoh abuse? -advanced; previous CT a/p in 2022 with esophageal varices, splenomegaly, etc. -markedly decompensated with pulmonary edema/anasarca -typically takes 80mg of PO lasix at home -s/p lasix 20mg IV x 1 yesterday with good response -repeat lasix IV again today -diet - 2 gram salt restriction -added spironolactone in addition to his lasix -gave 25 gr of albumin IV and lasix -due to previous liver lesions in 2022, etc will obtain CT liver w/ and w/o contrast for additional information -if pt's BPs ever stabilize should consider low-dose propranolol or nadalol but hold at this time given his BPs #hepatic encephalopathy - ongoing - -increased lactulose to tid dosing. -aim for 3 BMs/day at minimum #acute blood loss anemia - -2nd to right hip fracture, perioperative blood loss, frequent phlebotomy, etc. -cannot rule out GI losses but no report of melena/BRBPR -admit hemoglobin 12.9 -hemoglobin today 7.6 -he is s/p 1 unit of PRBCs earlier this admission -holding transfusion due to pulmonary edema will defer at this time -attempt to diurese, and if respiratory status is better tomorrow, then consider transfusion at that time -CBC in am #pancytopenia - -likely 2nd to advanced cirrhosis -also, in 2022, flow cytometry suggested he had B cell lymphoma - but he never had f/u for such -checked TSH, B12, folate - all wnl -serial CBC -transfuse as needed -consider formal heme/onc consult given the ?B cell lymphoma -CT a/p - look for lymphadenopathy #acute post-op pulmonary insufficiency - -suspect 2nd to pulmonary edema -diurese -underlying COPD could be contributing as well #Chronic Dyspnea/Emphysema - -2nd to COPD #Venous insufficiency - -resumed lasix #s/p cardiac pacemaker - -placed for high-degree AV block -follows with [facility] -Trivedi device #Thrombocytopenia - -Likely due to cirrhosis/hypersplenism -Baseline platelet count 50-70 -bottomed in the 40s, slowly trending up -CBC am #B-cell lymphoma - -s/p liver biopsy (numerous liver lesions on CT 2022) - B cells noted on that biopsy -s/p flow cytometry in 2022 -highly suggestive of B-Cell lymphoma -never had follow-up with oncology for this issue following 2022 admission #DVT proph - -with low platelets, ABLA, esophageal varices, etc avoid chemical means at this time -poor candidate for any chemical DVT proph - bit of a quandary extensively updated at bedside today questions answered very poor prognosis in light of advanced cirrhosis and ?underlying lymphoma strongly consider palliative care consult even if he/his want ongoing routine care Admission and Anticipated Discharge Date Admission Date: March 02, 2025 Subjective Patient continues to be confused. Patient is short of breath. Physical Exam Physical Exam: gen - looks chronically unwell, less confused neck - JVD present - slightly improved mouth - MMM heart - RRR, s1 s2, 2/6 systolic murmur LSB lungs - b/l wheezing abd - distended/body wall edema?; NT; BS+; no caput medosa - scrotal edema, waldrop in place ext - right leg with severe edema R thigh, and 1-2+ edema from knee to foot on right; 1+ edema entire left leg from foot to thigh; pulses b/l feet 2+ Results & Data Results & Data Vital Signs (Past 12 Hours) Vital Signs Temp Pulse Resp BP BP Pulse Ox O2 Del Method 03/09/25 20:15 83 19 97 Oxymask 03/09/25 18:35 36.8 C 78 19 107/52 L 98 Oxymask 03/09/25 16:27 37.2 C 78 20 107/57 L 97 Oxymask 03/09/25 15:47 37.0 C 74 22 102/52 L 97 Oxymask 03/09/25 14:35 77 18 98 Oxymask 03/09/25 12:56 95 03/09/25 12:03 82 117/58 L O2 Flow Rate 03/09/25 20:15 3 03/09/25 18:35 03/09/25 16:27 2 03/09/25 15:47 2.5 03/09/25 14:35 3 03/09/25 12:56 03/09/25 12:03 PG Care Time/CCT Total # of Minutes Spent Total Time Spent with Patient: Total time spent is greater than 50% in coordination of care (as documented) at patient's floor/unit and/or counseling patient: Coding Level of Care Code 22370 SUB INP/OBS CARE 3/50MIN Diagnoses Age-related osteoporosis with current pathological fracture, right femur, subsequent encounter for fracture with routine healing M80.051D Pancytopenia D61.818 ALINE (acute kidney injury) N17.9 Age related osteoporosis, unspecified pathological fracture presence M81.0 Osteoporosis type: age-related Presence of current pathological fracture: unspecified Acute postoperative pulmonary insufficiency J95.2 Anasarca R60.1 Decompensated hepatic cirrhosis K72.90; K74.60 Status cardiac pacemaker Z95.0 Acute blood loss anemia D62 B-cell lymphoma C85.10 Hepatic encephalopathy K76.82 (4) Osteoporosis Osteoporosis type: age-related Presence of current pathological fracture: unspecified Qualified Code(s): M81.0 - Age-related osteoporosis without current pathological fracture
[2025-03-10 07:29] LABS: Hematocrit (blood only) 21.0 % (42.0-52.0); Hemoglobin 7.2 g/dl (14.0-18.0); Immature Granulocytes # (auto) 0.03 K/uL (0.01-0.20); Immature Granulocytes % (auto) 0.9 %; Mean Corpuscular Hemoglobin 35.0 pg (25.0-34.0); Mean Corpuscular Volume 101.9 fL (80.0-100.0); Platelet Count 56 K/uL (130-400); RDW Standard Deviation 58.9 fL (36.4-46.3); Red Blood Count 2.06 M/uL (4.70-6.10); White Blood Count 3.50 K/ul (4.8-10.8)
[2025-03-10 07:45] LABS: Alanine Aminotransferase 9.0 U/L (7-52); Albumin Globulin Ratio 1.3 (0.9-2); Alkaline Phosphatase 59.0 U/L (34-104); Anion Gap 5.0 (3-11); Bilirubin,Total 3.1 mg/dl (0.2-1.0); Blood Urea Nitrogen 19.0 mg/dl (6-23); Calcium 7.9 mg/dl (8.6-10.3); Carbon Dioxide 23.0 mmol/L (21-32); Chloride 103.0 mmol/L (98-107); Creatinine Clr Calc Pharmacy 129.3 ml/min; Globulin 2.1 gm/dl (2.5-4.0); Glucose 111.0 mg/dl (70-99(Fasting)); Potassium 4.3 mmol/L (3.5-5.1); Sodium 131.0 mmol/L (136-145); Total Protein 4.8 gm/dl (6.0-8.3)
[2025-03-10 07:49] LABS: Anisocytosis Present
--- NOTE | 2025-03-10 09:43 | Orthopedic Progress Note ---
Date of Service March 10, 2025 Assessment & Plan (1) Closed fracture of neck of right femur: Plan: Postop day #7 status post ORIF right hip fracture 03/03/[address] Hernández HgB, HcT and platelets are low and slightly trending downward. Medicine will cont to monitor and it will be up to them to decide to Transfuse patient. Proximalmost incision has a clean dressing in place that was not removed. The other dressings are clean, dry, and intact and were also left in place. Nursing may change dressing by application of Xeroform, 4 x 4's and paper tape dressing. Then may redress as needed. PT/OT Weight-bear as tolerated on the right lower extremity with a walker and max assist as he is high risk for falls. DVT prophylaxis and pain control per the primary team. Nursing stated hospitalist was hesitant to apply NEVAEH stockings given his edema. They have been using SCDs. He currently is not receiving any DVT prophylaxis due to medical comorbidities. Patient with multiple medical problems currently being addressed. Per hospitalist note, there was discussion of palliative care consult. PT/OT recommending rehab. Case management for discharge planning when medically stable. Follow-up as scheduled with orthopedics 2 weeks after surgery with PA and x- rays. Nursing will notify us with any wound issues. Admission and Anticipated Discharge Date Admission Date: March 02, 2025 Subjective This 84-year-old male seen today for follow-up after her undergoing trochanteric nailing for a right hip fracture. Patient is sitting up comfortably in bed. He has oxygen running with a nonrebreather. Patient states that he still has difficulty lifting his leg and has not been out of bed with therapy as of yet. He states that he is short of breath and was advised by one of the other doctors that he may have some fluid on his lungs. Currently he denies chest pain, fever, chills, sweats, nausea, vomiting or diarrhea. He currently has a urinary catheter in place. Review of Systems Review of Systems: All systems reviewed & are unremarkable except as noted in Subjective Physical Exam Physical Exam: Right lower extremity: All dressings are clean dry and intact left in place. The proximalmost dressing was just changed. Patient is unable to perform active straight leg raise test. He is able to actively dorsi and plantarflex his foot and detect light sensation touch over the pads of all digits. He tolerates logroll testing without discomfort. I was only able to flex his hip to about 52 degrees before he experienced discomfort. His quad strength is 3 out of 5. He is neurovascularly intact in the right lower extremity. Results & Data Vital Signs (Past 12 Hours) Vital Signs Temp Pulse Pulse Resp BP BP Pulse Ox 03/10/25 08:00 03/10/25 07:53 36.4 C L 84 16 98/54 L 96 03/10/25 07:00 81 18 93 03/10/25 02:04 88 16 96 03/09/25 23:19 96 03/09/25 22:54 36.7 C 78 20 105/64 98 O2 Del Method O2 Flow Rate 03/10/25 08:00 Oxymask 2 03/10/25 07:53 Oxymask 2 03/10/25 07:00 Oxymask 2 03/10/25 02:04 Oxymask 2 03/09/25 23:19 Oxymask 2 03/09/25 22:54 Oxymask 3 Diagnostic Findings Laboratory Results WBC 3.50 K/ul (4.8-10.8) L 03/10/25 06:57 RBC 2.06 M/uL (4.70-6.10) L 03/10/25 06:57 Hgb 7.2 g/dl (14.0-18.0) L 03/10/25 06:57 Hct 21.0 % (42.0-52.0) L 03/10/25 06:57 MCV 101.9 fL (80.0-100.0) H 03/10/25 06:57 MCH 35.0 pg (25.0-34.0) H 03/10/25 06:57 MCHC 34.3 g/dL (32.0-36.0) 03/10/25 06:57 RDW Std Deviation 58.9 fL (36.4-46.3) H 03/10/25 06:57 RDW Coeff of Irene 15.9 % (11.5-14.5) H 03/10/25 06:57 Plt Count 56 K/uL (130-400) L 03/10/25 06:57 MPV 10.4 fL (9.4-12.4) 03/10/25 06:57 Immature Gran % (Auto) 0.9 % 03/10/25 06:57 Neut % (Auto) 75.6 % 03/10/25 06:57 Lymph % (Auto) 8.9 % 03/10/25 06:57 Lee % (Auto) 10.9 % 03/10/25 06:57 Eos % (Auto) 3.4 % 03/10/25 06:57 Baso % (Auto) 0.3 % 03/10/25 06:57 Neut # (Auto) 2.65 K/uL (1.40-6.50) 03/10/25 06:57 Lymph # (Auto) 0.31 K/uL (1.20-3.40) L 03/10/25 06:57 Lee # (Auto) 0.38 K/uL (0.11-0.59) 03/10/25 06:57 Eos # (Auto) 0.12 K/uL (0.00-0.50) 03/10/25 06:57 Baso # (Auto) 0.01 K/uL (0.00-0.20) 03/10/25 06:57 Immature Gran # (Auto) 0.03 K/uL (0.01-0.20) 03/10/25 06:57 RBC Morphology Unremarkable 03/07/25 05:37 Polychromasia 1+ 03/08/25 05:24 Anisocytosis Present 03/10/25 06:57 Peripher Smr Path Cons 03/07/25 05:37 PT 14.2 Seconds (9.0-12.0) H 03/05/25 03:33 INR 1.3 (0.9-1.1) H 03/05/25 03:33 APTT 34 Seconds (21-31) H 03/02/25 16:46 PTT Ratio 1.3 03/02/25 16:46 Sodium 131 mmol/L (136-145) L 03/10/25 06:57 Potassium 4.3 mmol/L (3.5-5.1) 03/10/25 06:57 Chloride 103 mmol/L (98-107) 03/10/25 06:57 Carbon Dioxide 23 mmol/L (21-32) 03/10/25 06:57 Anion Gap 5 (3-11) 03/10/25 06:57 BUN 19 mg/dl (6-23) 03/10/25 06:57 Creatinine 0.53 mg/dl (0.6-1.4) L 03/10/25 06:57 Est Cr Clr Drug Dosing 129.3 ml/min 03/10/25 06:57 eGFR 100.06 03/10/25 06:57 BUN/Creatinine Ratio 35.8 (10-20) H 03/10/25 06:57 Glucose 111 mg/dl (70-99(Fasting)) H 03/10/25 06:57 Calcium 7.9 mg/dl (8.6-10.3) L 03/10/25 06:57 Magnesium 1.8 mg/dl (1.7-2.4) 03/07/25 05:37 Total Bilirubin 3.1 mg/dl (0.2-1.0) H 03/10/25 06:57 AST 22 U/L (13-39) 03/10/25 06:57 ALT 9 U/L (7-52) 03/10/25 06:57 Alkaline Phosphatase 59 U/L (34-104) 03/10/25 06:57 Ammonia 51.0 umol/L (18-72) 03/09/25 07:11 Troponin I High Sens 20.7 pg/ml (0-20) H 03/02/25 16:46 C-Reactive Protein 1.17 mg/dl (0-0.5) H 03/02/25 17:35 B-Natriuretic Peptide 687 pg/ml (0-100) H 03/10/25 06:57 Total Protein 4.8 gm/dl (6.0-8.3) L 03/10/25 06:57 Albumin 2.7 gm/dl (3.4-5.0) L 03/10/25 06:57 Globulin 2.1 gm/dl (2.5-4.0) L 03/10/25 06:57 Albumin/Globulin Ratio 1.3 (0.9-2) 03/10/25 06:57 Vitamin B12 669 pg/ml (180-914) 03/07/25 05:37 25-OH Vitamin D Total 36.2 ng/ml (30-100) 03/04/25 07:58 Folate 15.01 ng/ml (>5.38) 03/07/25 05:37 TSH 2.058 uIu/ml (0.300-4.500) 03/07/25 05:37 Urine Color Yellow 03/02/25 17:09 Urine Appearance Clear (Clear) 03/02/25 17:09 Urine pH 6.0 (4.5-7.5) 03/02/25 17:09 Ur Specific [place] 1.012 (1.000-1.030) 03/02/25 17:09 Urine Protein Negative (Negative) 03/02/25 17:09 Urine Glucose (UA) Negative (Negative) 03/02/25 17:09 Urine Ketones Negative (Negative) 03/02/25 17:09 Urine Blood Negative (Negative) 03/02/25 17:09 Urine Nitrite Negative (Negative) 03/02/25 17:09 Urine Bilirubin Negative (Negative) 03/02/25 17:09 Urine Urobilinogen Negative (Negative) 03/02/25 17:09 Ur Leukocyte Esterase 1+ (Negative) H 03/02/25 17:09 Urine WBC (Auto) 6-10 /hpf (0-5) H 03/02/25 17:09 Urine RBC (Auto) 0-2 /hpf (0-2) 03/02/25 17:09 U Hyaline Cast (Auto) 3-5 /lpf (0-2) H 03/02/25 17:09 U Epithel Cells (Auto) 0-2 /hpf (0-2) 03/02/25 17:09 Urine Bacteria (Auto) None Seen (None Seen) 03/02/25 17:09 Urine Comment 03/02/25 17:09 Blood Type A Negative 03/03/25 16:37 Blood Type Recheck A Negative 03/03/25 16:37 Antibody Screen NEGATIVE 03/03/25 16:37 Crossmatch See Detail 03/03/25 16:37 Impressions Chest X-Ray 03/02/25 16:01 Technique: A frontal view of the chest was obtained Findings: There is multifocal interstitial prominence throughout both lungs. The heart size is at the upper limit of normal. No pleural effusion or pneumothorax is seen. No fracture is noted. There is a left chest wall pacemaker device Impression: Diffuse pulmonary interstitial opacities that may be due to atypical pneumonia. Pulmonary edema is possible but felt to be less likely ACT 112: Positive. There are findings on this exam that require communication between the performing entity and the patient following Patient Test Result Information Act ([place] ACT 112) guidelines. Electronically signed by Vamsi Olivera 03-02-2025 5:14 PM Hip/Pelvis X-Ray 03/02/25 16:01 Clinical History: Pain after fall 3 views of the pelvis and right hip are submitted for review. Findings: There is an acute comminuted intertrochanteric fracture of the right femoral neck, with mild displacement and angulation of fracture fragments. No subluxation or dislocation is seen. No significant arthritic changes are noted. No other osseous abnormality is identified. There are no radiopaque foreign bodies. Impression: Acute fracture of the right femoral neck ACT 112: Positive. There are findings on this exam that require communication between the performing entity and the patient following Patient Test Result Information Act ([place] ACT 112) guidelines. Electronically signed by Vamsi Olivera 03-02-2025 5:[address] 03/02/25 18:55 CT of the chest without contrast Technique: Noncontrast axial images of the chest. Coronal and sagittal reformatted images made available for review No comparison Findings: Gynecomastia. Exam limited secondary to lack of IV contrast. Left chest wall dual-lead intracardiac device. Diffuse right greater than left apical predominant bullous emphysematous change. Linear atelectasis in the lung bases. Traction bronchiectasis in the left lower lobe. Trace right pleural effusion. Limited evaluation the upper abdomen demonstrates hepatic cirrhosis with splenomegaly. Impression Gynecomastia likely secondary to liver dysfunction. Hepatic cirrhosis with splenomegaly incompletely evaluated on this exam No acute pulmonary pathology. Electronically signed by Ryder Guerra 03-02-2025 8:47 PM Hip X-Ray 03/03/25 00:00 INTRAOPERATIVE RADIOGRAPHS CLINICAL HISTORY: Open reduction and internal fixation of the right proximal femur. Fluoro time: 103 seconds Ka,r: 34.74 mGy FINDINGS: 4 spot fluoroscopic views of the right femur are correlated with radiographs dated 03/02/2025. There has been intertrochanteric and intramedullary nail fixation of a comminuted intertrochanteric fracture of the right proximal femur with evangelical of near-anatomic alignment. A single cortical lag screw transfixes the distal end of the intramedullary nail. There is persistent medial displacement of the lesser trochanter. The orthopedic hardware appears intact. IMPRESSION: Intraoperative images from open reduction and internal fixation of the right proximal femur. Electronically signed by: Kaushal Griffiths M.D. 03/04/2025 7:16 AM Femur X-Ray 03/03/25 19:23 EXAM: XR femur RT 2V routine CLINICAL HISTORY: s/p ORIF right hip fracture. TECHNIQUE: X-ray images of the right femur were obtained in anteroposterior (AP) and lateral projections. COMPARISON: No prior studies are available for comparison. FINDINGS: Bone Structure: diffuse osteopenia Upper femur fracture with internal fixation by dynamic hip screw. The hardware is in place with no signs of complication Joint and Articular Surfaces: Mild osteoarthritic changes of the hip and knee joints IMPRESSION: Upper femur fracture with internal fixation. The hardware is in place with no signs of complications. Disclaimer: A subtle bone abnormality or fracture may not be readily apparent on X-rays. Clinical correlation and further imaging, including CT, MRI, or follow-up X-rays, are advised if clinically warranted. Electronically signed by Emir Gupta 03-03-2025 9:[address] 03/07/25 12:35 CT OF THE ABDOMEN WITH AND WITHOUT CONTRAST LIVER PROTOCOL CLINICAL HISTORY: cirrhosis, copious liver lesions CT '23, ?lymphoma COMPARISON STUDY: CT of the abdomen and pelvis September 16, 2022. TECHNIQUE: Unenhanced, arterial and venous phase imaging of the abdomen was performed. Intravenous injection of 92 cc of Optiray 320 IV was uneventful. A dose lowering technique was utilized adhering to the principles of ALARA. FINDINGS: Cardiomegaly, pacer leads, small bilateral pleural effusions, interstitial pulmonary edema and gynecomastia within the lower chest are incidentally noted. Is no pneumatosis, free air or portal venous gas within the abdomen. As before, the liver is cirrhotic. Lateral segment and caudate hypertrophy with right hepatic lobe atrophy is again noted. This exam is compromised by suboptimal opacification and artifact. Several lateral segment hepatic lesions are noted. Overall, the number of hepatic hepatic lesions has decreased since CT of September 16, 2022. 2 lateral segment lesions persist. These are best depicted on the unenhanced portion of this exam and are hyperdense. The largest is a 2.8 cm lesion on image 17 of 57. This measured 2.[address] of September 16, 2022. There is an additional 2.5 cm lateral segment lesion. Characterization is difficult on this examination however these demonstrate minimal enhancement without washout. Moderate splenomegaly has mildly increased. Upper abdominal collaterals are noted including a splenorenal shunt. There is body wall edema. Adrenal glands, kidneys and pancreas are unremarkable. There is no hydronephrosis. There is no pancreatic ductal dilatation. Caliber and wall thickness of visualized small and large bowel are normal. L2 compression fracture with severe loss of vertebral body height and mild retropulsion is noted.. Body height loss has increased since radiographs of January 20, 2024. IMPRESSION: 1. Cirrhotic liver with manifestations of portal hypertension including splenomegaly and varices formation. 2. Overall, decrease in conspicuity of hepatic lesions since CT of September 16, 2022. Two lateral segment lesions, as described above, likely decreased since prior CT although characterization is difficult on this exam. These remain path ologically indeterminate and continued imaging follow-up is recommended. If interval treatment, the findings suggest a treatment response. If no interval treatment, the apparent lesions on prior study may have reflected regenerative nodules. 3. Cardiomegaly with evidence for pulmonary edema and small bilateral pleural effusions. ACT 112: Negative or not required by law. Electronically signed by: Borsi Kraus M.D. 03/07/2025 3:50 PM (1) Closed fracture of neck of right femur Encounter type: initial encounter Qualified Code(s): S72.001A - Fracture of unspecified part of neck of right femur, initial encounter for closed fracture
--- NOTE | 2025-03-10 14:24 | Ultrasound Report ---
LIMITED ABDOMINAL ULTRASOUND INDICATION: Paracentesis requested FINDINGS: Ultrasound imaging in all 4 abdominal quadrants was performed. No ascites was identified. N o paracentesis was performed. IMPRESSION: No ascites noted to perform paracentesis. Performed, dictated, and signed by Raul Norris PA-C; to be co-signed by Dr. Boris Kraus. Electronically signed by: Boris Kraus M.D. 03/10/2025 2:48 PM
--- NOTE | 2025-03-10 23:29 | Hospitalist Progress Note ---
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 #age-related osteoporotic right femoral neck fracture - -s/p closed reduction with troch nail on 03/[address] Hernández, [facility] -25-OH Vitamin D level - 36 -PT/OT as able, but rehab potential may be limited by his advanced cirrhosis, cardiopulmonary status, etc. -norco prn mild/mod pain : will consider removing norco in AM due to confusion. did not receive on 03/09 -IV dilaudid prn for severe pain -stopped toradol due to h/o esophageal varices, etc. #ALINE - IMPROVED - -peak Cr 1.77 -admission Cr 0.74 -likely due to hypotension/renal hypoperfusion in the setting of cirrhosis -appears at baseline, -doubt he had hepatorenal syndrome -tolerating lasix/spironolactone, will hold albumin today and IV lasix but co ntiue PO lasix. #hypotension - -2nd to acute blood loss anemia in the setting of advanced cirrhosis -s/p PRBCs, IV fluids, albumin IV -required much of the above for several days post-op -started midodrine 2.5mg TID then titrated to 5mg TID -consider additional unit of PRBCs when volume status is improved #cirrhosis - decompensated/advanced - -2nd to h/o etoh abuse? -advanced; previous CT a/p in 2022 with esophageal varices, splenomegaly, etc. -markedly decompensated with pulmonary edema/anasarca -typically takes 80mg of PO lasix at home -s/p lasix 20mg IV x 1 yesterday with good response -repeat lasix IV again today -diet - 2 gram salt restriction -continue spironolactone in addition to his lasix -due to previous liver lesions in 2022, etc will obtain CT liver w/ and w/o contrast for additional information -if pt's BPs ever stabilize should consider low-dose propranolol or nadalol but hold at this time given his BPs #hepatic encephalopathy - ongoing - -increased lactulose to tid dosing. -aim for 3 BMs/day at minimum #acute blood loss anemia - -2nd to right hip fracture, perioperative blood loss, frequent phlebotomy, etc. -cannot rule out GI losses but no report of melena/BRBPR -admit hemoglobin 12.9 -hemoglobin today 7.6 -he is s/p 1 unit of PRBCs earlier this admission -holding transfusion due to pulmonary edema will defer at this time -attempt to diurese, and if respiratory status is better tomorrow, then consider transfusion at that time -CBC in am #pancytopenia - -likely 2nd to advanced cirrhosis -also, in 2022, flow cytometry suggested he had B cell lymphoma - but he never had f/u for such -checked TSH, B12, folate - all wnl -serial CBC -transfuse as needed -consider formal heme/onc consult given the ?B cell lymphoma -CT a/p - look for lymphadenopathy #acute post-op pulmonary insufficiency - -suspect 2nd to pulmonary edema -diurese -underlying COPD could be contributing as well #Chronic Dyspnea/Emphysema - -2nd to COPD #Venous insufficiency - -resumed lasix #s/p cardiac pacemaker - -placed for high-degree AV block -follows with [facility] -Trivedi device #Thrombocytopenia - -Likely due to cirrhosis/hypersplenism -Baseline platelet count 50-70 -bottomed in the 40s, slowly trending up -CBC am #B-cell lymphoma - -s/p liver biopsy (numerous liver lesions on CT 2022) - B cells noted on that biopsy -s/p flow cytometry in 2022 -highly suggestive of B-Cell lymphoma -never had follow-up with oncology for this issue following 2022 admission #DVT proph - -with low platelets, ABLA, esophageal varices, etc avoid chemical means at this time -poor candidate for any chemical DVT proph - bit of a quandary very poor prognosis in light of advanced cirrhosis and ?underlying lymphoma strongly consider palliative care consult even if he/his want ongoing routine care Admission and Anticipated Discharge Date Admission Date: March 02, 2025 Subjective 84 yo male reports no new symptoms. Physical Exam Physical Exam: gen - looks chronically unwell, less confused neck - JVD present - slightly improved mouth - MMM heart - RRR, s1 s2, 2/6 systolic murmur LSB lungs - lungs sound clearer abd - distended/body wall edema?; NT; BS+; no caput medosa - scrotal edema, waldrop in place ext - right leg with severe edema R thigh, and 1-2+ edema from knee to foot on right; 1+ edema entire left leg from foot to thigh; pulses b/l feet 2+ Results & Data Results & Data Vital Signs (Past 12 Hours) Vital Signs Temp Pulse Pulse Pulse Resp BP Pulse Ox 03/10/25 20:00 03/10/25 19:29 84 17 97 03/10/25 16:00 36.7 C 90 20 114/64 95 03/10/25 13:14 88 18 98 03/10/25 12:27 36.5 C 78 14 98/58 L 96 O2 Del Method O2 Flow Rate 03/10/25 20:00 Oxymask 2 03/10/25 19:29 Oxymask 2 03/10/25 16:00 Oxymask 2 03/10/25 13:14 Oxymask 03/10/25 12:27 Oxymask 2 PG Care Time/CCT Total # of Minutes Spent Total Time Spent with Patient: Total time spent is greater than 50% in coordination of care (as documented) at patient's floor/unit and/or counseling patient: Coding Level of Care Code 38716 SUB INP/OBS CARE 3/50MIN Diagnoses Age-related osteoporosis with current pathological fracture, right femur, subsequent encounter for fracture with routine healing M80.051D Pancytopenia D61.818 ALINE (acute kidney injury) N17.9 Age related osteoporosis, unspecified pathological fracture presence M81.0 Osteoporosis type: age-related Presence of current pathological fracture: unspecified Acute postoperative pulmonary insufficiency J95.2 Anasarca R60.1 Decompensated hepatic cirrhosis K72.90; K74.60 Status cardiac pacemaker Z95.0 Acute blood loss anemia D62 B-cell lymphoma C85.10 Hepatic encephalopathy K76.82 (4) Osteoporosis Osteoporosis type: age-related Presence of current pathological fracture: unspecified Qualified Code(s): M81.0 - Age-related osteoporosis without current pathological fracture
[2025-03-11 06:29] LABS: Hematocrit (blood only) 22.8 % (42.0-52.0); Hemoglobin 7.7 g/dl (14.0-18.0); Immature Granulocytes # (auto) 0.02 K/uL (0.01-0.20); Immature Granulocytes % (auto) 0.4 %; Mean Corpuscular Hemoglobin 34.1 pg (25.0-34.0); Mean Corpuscular Volume 100.9 fL (80.0-100.0); Platelet Count 71 K/uL (130-400); RDW Standard Deviation 58.9 fL (36.4-46.3); Red Blood Count 2.26 M/uL (4.70-6.10); White Blood Count 4.53 K/ul (4.8-10.8)
[2025-03-11 07:12] LABS: Anisocytosis Present; Polychromasia 1+
[2025-03-11 07:18] LABS: Anion Gap 7.0 (3-11); Blood Urea Nitrogen 16.0 mg/dl (6-23); Calcium 8.2 mg/dl (8.6-10.3); Carbon Dioxide 22.0 mmol/L (21-32); Chloride 101.0 mmol/L (98-107); Creatinine Clr Calc Pharmacy 129.3 ml/min; Glucose 126.0 mg/dl (70-99(Fasting)); Potassium 4.4 mmol/L (3.5-5.1); Sodium 130.0 mmol/L (136-145)
[2025-03-11] MEDS ORDERED: ALBUT/IPRATROP 3MG/0.5MG NEB 3 ML VIAL NEB PRN (12:20)
--- NOTE | 2025-03-11 17:04 | Hospitalist Progress Note ---
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 #age-related osteoporotic right femoral neck fracture - -s/p closed reduction with troch nail on 03/[address] Hernández, [facility] -25-OH Vitamin D level - 36 -PT/OT as able, but rehab potential may be limited by his advanced cirrhosis, cardiopulmonary status, etc. -norco prn mild/mod pain : will consider removing norco in AM due to confusion. did not receive on 03/09 -IV dilaudid prn for severe pain -stopped toradol due to h/o esophageal varices, etc. #ALINE - IMPROVED - -peak Cr 1.77 -admission Cr 0.74 -likely due to hypotension/renal hypoperfusion in the setting of cirrhosis -appears at baseline, -doubt he had hepatorenal syndrome -tolerating lasix/spironolactone, will resume albumin IV and lasix #hypotension - -2nd to acute blood loss anemia in the setting of advanced cirrhosis -s/p PRBCs, IV fluids, albumin IV -required much of the above for several days post-op -started midodrine 2.5mg TID then titrated to 5mg TID -consider additional unit of PRBCs when volume status is improved #cirrhosis - decompensated/advanced - -2nd to h/o etoh abuse? -advanced; previous CT a/p in 2022 with esophageal varices, splenomegaly, etc. -markedly decompensated with pulmonary edema/anasarca -typically takes 80mg of PO lasix at home -s/p lasix 20mg IV x 1 yesterday with good response -repeat lasix IV again today -diet - 2 gram salt restriction -continue spironolactone in addition to his lasix -due to previous liver lesions in 2022, etc will obtain CT liver w/ and w/o contrast for additional information -if pt's BPs ever stabilize should consider low-dose propranolol or nadalol but hold at this time given his BPs #hepatic encephalopathy - ongoing - -increased lactulose to tid dosing. -aim for 3 BMs/day at minimum #acute blood loss anemia - -2nd to right hip fracture, perioperative blood loss, frequent phlebotomy, etc. -cannot rule out GI losses but no report of melena/BRBPR -admit hemoglobin 12.9 -hemoglobin today 7.6 -he is s/p 1 unit of PRBCs earlier this admission -holding transfusion due to pulmonary edema will defer at this time -attempt to diurese, and if respiratory status is better tomorrow, then consider transfusion at that time -CBC in am #pancytopenia - -likely 2nd to advanced cirrhosis -also, in 2022, flow cytometry suggested he had B cell lymphoma - but he never had f/u for such -checked TSH, B12, folate - all wnl -serial CBC -transfuse as needed -consider formal heme/onc consult given the ?B cell lymphoma -CT a/p - look for lymphadenopathy #acute post-op pulmonary insufficiency - -suspect 2nd to pulmonary edema -diurese -underlying COPD could be contributing as well #Chronic Dyspnea/Emphysema - -2nd to COPD #Venous insufficiency - -resumed lasix #s/p cardiac pacemaker - -placed for high-degree AV block -follows with [facility] -Trivedi device #Thrombocytopenia - -Likely due to cirrhosis/hypersplenism -Baseline platelet count 50-70 -bottomed in the 40s, slowly trending up now in the 70s -CBC am #B-cell lymphoma - -s/p liver biopsy (numerous liver lesions on CT 2022) - B cells noted on that biopsy -s/p flow cytometry in 2022 -highly suggestive of B-Cell lymphoma -never had follow-up with oncology for this issue following 2022 admission #DVT proph - -with low platelets, ABLA, esophageal varices, etc avoid chemical means at this time -poor candidate for any chemical DVT proph - bit of a quandary very poor prognosis in light of advanced cirrhosis and ?underlying lymphoma strongly consider palliative care consult even if he/his want ongoing routine care Admission and Anticipated Discharge Date Admission Date: March 02, 2025 Subjective Patient reports having a cough today. He also reports feeling somewhat SOB. He has been having 3-4 BM today. Physical Exam Physical Exam: gen - looks chronically unwell, less confused neck - JVD present - slightly improved mouth - MMM heart - RRR, s1 s2, 2/6 systolic murmur LSB lungs - lungs sound clearer abd - distended/body wall edema?; NT; BS+; no caput medosa - scrotal edema, waldrop in place ext - right leg with decreased edema R thigh, and 1-2+ edema from knee to foot on right; 1+ edema entire left leg from foot to thigh; pulses b/l feet 2+ Results & Data Results & Data Vital Signs (Past 12 Hours) Vital Signs Temp Pulse Resp BP BP Pulse Ox O2 Del Method 03/11/25 11:40 36.3 C L 74 18 107/63 96 Nasal Cannula 03/11/25 08:15 Nasal Cannula 03/11/25 07:20 36.9 C 90 20 101/59 L 96 Nasal Cannula 03/11/25 06:57 93 H 18 87 L Room Air O2 Flow Rate 03/11/25 11:40 2 03/11/25 08:15 2 03/11/25 07:20 2 03/11/25 06:57 PG Care Time/CCT Total # of Minutes Spent Total Time Spent with Patient: Total time spent is greater than 50% in coordination of care (as documented) at patient's floor/unit and/or counseling patient: Coding Level of Care Code 66813 SUB INP/OBS CARE 3/50MIN Diagnoses Age-related osteoporosis with current pathological fracture, right femur, subsequent encounter for fracture with routine healing M80.051D Pancytopenia D61.818 ALINE (acute kidney injury) N17.9 Age related osteoporosis, unspecified pathological fracture presence M81.0 Osteoporosis type: age-related Presence of current pathological fracture: unspecified Acute postoperative pulmonary insufficiency J95.2 Anasarca R60.1 Decompensated hepatic cirrhosis K72.90; K74.60 Status cardiac pacemaker Z95.0 Acute blood loss anemia D62 B-cell lymphoma C85.10 Hepatic encephalopathy K76.82 (4) Osteoporosis Osteoporosis type: age-related Presence of current pathological fracture: unspecified Qualified Code(s): M81.0 - Age-related osteoporosis without current pathological fracture
[2025-03-11] MEDS: ALBUMIN 25% 25 GM/100 ML VIAL IV SCH (17:30)
[2025-03-11] MEDS: HYDROmorphone INJ 0.5 MG/0.5 ML SYR IV PRN (18:38)
[2025-03-11] MEDS: FUROSEMIDE 40 MG/4 ML VIAL IV ONE (19:36)
[2025-03-12 06:31] LABS: Hematocrit (blood only) 22.0 % (42.0-52.0); Hemoglobin 7.6 g/dl (14.0-18.0); Mean Corpuscular Hemoglobin 34.9 pg (25.0-34.0); Mean Corpuscular Volume 100.9 fL (80.0-100.0); Platelet Count 72 K/uL (130-400); RDW Standard Deviation 58.4 fL (36.4-46.3); Red Blood Count 2.18 M/uL (4.70-6.10); White Blood Count 4.63 K/ul (4.8-10.8)
[2025-03-12 07:12] LABS: Alanine Aminotransferase 9.0 U/L (7-52); Albumin Globulin Ratio 1.3 (0.9-2); Alkaline Phosphatase 63.0 U/L (34-104); Anion Gap 5.0 (3-11); Bilirubin,Total 2.8 mg/dl (0.2-1.0); Blood Urea Nitrogen 18.0 mg/dl (6-23); Calcium 8.3 mg/dl (8.6-10.3); Carbon Dioxide 23.0 mmol/L (21-32); Chloride 101.0 mmol/L (98-107); Creatinine Clr Calc Pharmacy 118.2 ml/min; Globulin 2.3 gm/dl (2.5-4.0); Glucose 118.0 mg/dl (70-99(Fasting)); Potassium 4.1 mmol/L (3.5-5.1); Sodium 129.0 mmol/L (136-145); Total Protein 5.2 gm/dl (6.0-8.3)
--- NOTE | 2025-03-12 16:20 | Hospitalist Progress Note ---
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 #age-related osteoporotic right femoral neck fracture - -s/p closed reduction with troch nail on 03/[address] Hernández, [facility] -25-OH Vitamin D level - 36 -PT/OT as able, but rehab potential may be limited by his advanced cirrhosis, cardiopulmonary status, etc. -norco prn mild/mod pain : will consider removing norco in AM due to confusion. did not receive on 03/09 -IV dilaudid prn for severe pain -stopped toradol due to h/o esophageal varices, etc. #ALINE - IMPROVED - -peak Cr 1.77 -admission Cr 0.74 -likely due to hypotension/renal hypoperfusion in the setting of cirrhosis -appears at baseline, -doubt he had hepatorenal syndrome -tolerating lasix/spironolactone, will resume albumin IV and lasix #hypotension - -2nd to acute blood loss anemia in the setting of advanced cirrhosis -s/p PRBCs, IV fluids, albumin IV -required much of the above for several days post-op -started midodrine 2.5mg TID then titrated to 5mg TID -consider additional unit of PRBCs when volume status is improved #cirrhosis - decompensated/advanced - -2nd to h/o etoh abuse? -advanced; previous CT a/p in 2022 with esophageal varices, splenomegaly, etc. -markedly decompensated with pulmonary edema/anasarca -typically takes 80mg of PO lasix at home -s/p lasix 20mg IV x 1 yesterday with good response -repeat lasix IV again today -diet - 2 gram salt restriction -continue spironolactone in addition to his lasix -Net negative 5.5 liters -due to previous liver lesions in 2022, etc will obtain CT liver w/ and w/o contrast for additional information -if pt's BPs ever stabilize should consider low-dose propranolol or nadalol but hold at this time given his BPs #acute hepatic encephalopathy - ongoing - - lactulose to BID dosing. -aim for 3 BMs/day at minimum -Mental status is improved. #acute blood loss anemia - -2nd to right hip fracture, perioperative blood loss, frequent phlebotomy, etc. -cannot rule out GI losses but no report of melena/BRBPR -admit hemoglobin 12.9 -hemoglobin today 7.6 -he is s/p 1 unit of PRBCs earlier this admission -holding transfusion due to pulmonary edema will defer at this time -attempt to diurese, and if respiratory status is better tomorrow, then consider transfusion at that time -CBC in am #pancytopenia - -likely 2nd to advanced cirrhosis -also, in 2022, flow cytometry suggested he had B cell lymphoma - but he never had f/u for such -checked TSH, B12, folate - all wnl -serial CBC -transfuse as needed -consider formal heme/onc consult given the ?B cell lymphoma -CT a/p - look for lymphadenopathy #acute post-op pulmonary insufficiency - -suspect 2nd to pulmonary edema -diurese -underlying COPD could be contributing as well #Chronic Dyspnea/Emphysema - -2nd to COPD #Venous insufficiency - -resumed lasix #s/p cardiac pacemaker - -placed for high-degree AV block -follows with [email or web address] -Trivedi device #Thrombocytopenia - -Likely due to cirrhosis/hypersplenism -Baseline platelet count 50-70 -bottomed in the 40s, slowly trending up now in the 70s -CBC am #B-cell lymphoma - -s/p liver biopsy (numerous liver lesions on CT 2022) - B cells noted on that biopsy -s/p flow cytometry in 2022 -highly suggestive of B-Cell lymphoma -never had follow-up with oncology for this issue following 2022 admission #DVT proph - -with low platelets, ABLA, esophageal varices, etc avoid chemical means at this time -poor candidate for any chemical DVT proph - bit of a quandary very poor prognosis in light of advanced cirrhosis and ?underlying lymphoma strongly consider palliative care consult even if he/his want ongoing routine care Admission and Anticipated Discharge Date Admission Date: March 02, 2025 Subjective Patient reports having multiple BMs today. Physical Exam Physical Exam: gen - looks chronically unwell, less confused neck - JVD present - slightly improved mouth - MMM heart - RRR, s1 s2, 2/6 systolic murmur LSB lungs - lungs sound clearer abd - distended/body wall edema?; NT; BS+; no caput medosa - scrotal edema, waldrop in place ext - right leg with decreased edema R thigh, and 1-2+ edema from knee to foot on right; 1+ edema entire left leg from foot to thigh; pulses b/l feet 2+ Results & Data Results & Data Vital Signs (Past 12 Hours) Vital Signs Temp Pulse Resp BP BP Pulse Ox O2 Del Method 03/12/25 14:46 36.7 C 76 18 117/67 96 Nasal Cannula 03/12/25 12:23 74 17 102/56 L 96 Nasal Cannula 03/12/25 08:00 Nasal Cannula 03/12/25 07:20 36.7 C 91 H 16 115/60 95 Nasal Cannula O2 Flow Rate 03/12/25 14:46 2 03/12/25 12:23 2 03/12/25 08:00 2 03/12/25 07:20 2 PG Care Time/CCT Total # of Minutes Spent Total Time Spent with Patient: Total time spent is greater than 50% in coordination of care (as documented) at patient's floor/unit and/or counseling patient: Coding Level of Care Code 87617 SUB INP/OBS CARE 3/50MIN Diagnoses Age-related osteoporosis with current pathological fracture, right femur, subsequent encounter for fracture with routine healing M80.051D Pancytopenia D61.818 ALINE (acute kidney injury) N17.9 Age related osteoporosis, unspecified pathological fracture presence M81.0 Osteoporosis type: age-related Presence of current pathological fracture: unspecified Acute postoperative pulmonary insufficiency J95.2 Anasarca R60.1 Decompensated hepatic cirrhosis K72.90; K74.60 Status cardiac pacemaker Z95.0 Acute blood loss anemia D62 B-cell lymphoma C85.10 Hepatic encephalopathy K76.82 (4) Osteoporosis Osteoporosis type: age-related Presence of current pathological fracture: unspecified Qualified Code(s): M81.0 - Age-related osteoporosis without current pathological fracture
[2025-03-12] MEDS: ALBUMIN 25% 25 GM/100 ML VIAL IV ONE (16:31)
[2025-03-12] MEDS: FUROSEMIDE 40 MG/4 ML VIAL IV ONE ×2 (18:17)
[2025-03-13 08:49] LABS: Hematocrit (blood only) 22.2 % (42.0-52.0); Hemoglobin 7.7 g/dl (14.0-18.0); Mean Corpuscular Hemoglobin 34.8 pg (25.0-34.0); Mean Corpuscular Volume 100.5 fL (80.0-100.0); Platelet Count 81 K/uL (130-400); RDW Standard Deviation 59.8 fL (36.4-46.3); Red Blood Count 2.21 M/uL (4.70-6.10); White Blood Count 4.06 K/ul (4.8-10.8)
[2025-03-13] MEDS ORDERED: LACTULOSE SYRUP 20 GM/30 ML UDC PO SCH (09:00)
[2025-03-13 09:09] LABS: Alanine Aminotransferase 10.0 U/L (7-52); Albumin Globulin Ratio 1.3 (0.9-2); Alkaline Phosphatase 65.0 U/L (34-104); Anion Gap 5.0 (3-11); Bilirubin,Total 2.9 mg/dl (0.2-1.0); Blood Urea Nitrogen 17.0 mg/dl (6-23); Calcium 8.4 mg/dl (8.6-10.3); Carbon Dioxide 23.0 mmol/L (21-32); Chloride 101.0 mmol/L (98-107); Creatinine Clr Calc Pharmacy 122.4 ml/min; Globulin 2.4 gm/dl (2.5-4.0); Glucose 110.0 mg/dl (70-99(Fasting)); Potassium 4.5 mmol/L (3.5-5.1); Sodium 129.0 mmol/L (136-145); Total Protein 5.4 gm/dl (6.0-8.3)
[2025-03-13 09:58] LABS: INR 1.2 (0.9-1.1); Prothrombin Time 13.0 Seconds (9.0-12.0)
[2025-03-13] MEDS: FUROSEMIDE 40 MG/4 ML VIAL IV ONE (10:13)
[2025-03-13] MEDS: ALBUMIN 25% 25 GM/100 ML VIAL IV ONE (10:29)
--- NOTE | 2025-03-13 11:09 | Orthopedic Progress Note ---
Date of Service March 13, 2025 Assessment & Plan (1) Closed fracture of neck of right femur: Plan: Postop day #10 status post ORIF right hip fracture 03/03/[address] Hernández Routine post-op femur X-rays ordered Dressings were changed today as noted above. Nursing may reinforce as needed with Xeroform, ABDs and paper tape dressing. PT/OT Recommending rehab. Weight-bear as tolerated on the right lower extremity with a walker and max assist as he is high risk for falls. DVT prophylaxis and pain control per the primary team. Unable to do NEVAEH stockings given his lower extremity edema. They have been using SCDs. He currently is not receiving any DVT prophylaxis due to medical comorbidities. Patient with multiple medical problems currently being addressed. Per hospitalist note, there was discussion of palliative care consult. Case management for discharge planning when medically stable. Patient has an appointment with us 03/15 in the office. If he is still here we will plan to remove his sutures then. Admission and Anticipated Discharge Date Admission Date: March 02, 2025 Subjective Patient was seen and examined bedside. He is not having any pain in his hip. He has been in the chair but unable to do much else with physical therapy. No numbness or tingling in his leg. Physical Exam Physical Exam: Proximal dressing was slightly coming off and had some drainage on it. Some of the fracture blisters have popped. Incision is well-approximated with no erythema or purulent drainage. Thigh was soft and compressible however tender to the touch. He can bend his knee slightly with some assistance. He can He can freely wiggle his toes and pump his ankle up and down with 4-5 strength with plantarflexion 3-5 strength with dorsiflexion. Sensation intact distally to light touch. Calf soft and compressible. He can tolerate some gentle passive motion with abduction and adduction of his hip and some slight flexion I changed his dressings and put new ABD pads and paper tape over top. Results & Data Vital Signs (Past 12 Hours) Vital Signs Temp Pulse Resp BP Pulse Ox O2 Del Method O2 Flow Rate 03/13/25 09:28 Nasal Cannula 2 03/13/25 07:36 37.0 C 81 15 102/56 L 96 Room Air 03/12/25 23:51 36.7 C 74 18 122/62 95 Nasal Cannula 2 (1) Closed fracture of neck of right femur Encounter type: initial encounter Qualified Code(s): S72.001A - Fracture of unspecified part of neck of right femur, initial encounter for closed fracture
--- NOTE | 2025-03-13 14:03 | XRay Report ---
XR femur RT 2V routine CLINICAL HISTORY: 10 days s/p ORIF R femur fx COMPARISON: 03/03/2025 FINDINGS: Right femoral gamma nail shows no hardware complication. There is stable alignment at the proximal femur fracture. Skin karthik remain. IMPRESSION: Stable alignment. ACT 112: Negative or not required by law. Electronically signed by: Ian Roldan M.D. 03/13/2025 2:02 PM
[2025-03-13 18:36] LABS: Chloride 98.0 mmol/L (98-107); Potassium 4.4 mmol/L (3.5-5.1); Sodium 126.0 mmol/L (136-145)
[2025-03-13 19:09] LABS: Anion Gap 8.0 (3-11); Blood Urea Nitrogen 17.0 mg/dl (6-23); Calcium 8.4 mg/dl (8.6-10.3); Carbon Dioxide 20.0 mmol/L (21-32); Creatinine Clr Calc Pharmacy 108.3 ml/min; Glucose 147.0 mg/dl (70-99(Fasting))
--- NOTE | 2025-03-13 22:59 | Hospitalist Progress Note ---
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 #age-related osteoporotic right femoral neck fracture - -s/p closed reduction with troch nail on 03/[address] Hernández, [facility] -25-OH Vitamin D level - 36 -PT/OT as able, but rehab potential may be limited by his advanced cirrhosis, cardiopulmonary status, etc. -norco prn mild/mod pain : will consider removing norco in AM due to confusion. did not receive on 03/09 -IV dilaudid prn for severe pain -stopped toradol due to h/o esophageal varices, etc. #ALINE - IMPROVED - -peak Cr 1.77 -admission Cr 0.74 -likely due to hypotension/renal hypoperfusion in the setting of cirrhosis -appears at baseline, -doubt he had hepatorenal syndrome -tolerating lasix/spironolactone, will resume albumin IV and lasix #hypotension - -2nd to acute blood loss anemia in the setting of advanced cirrhosis -s/p PRBCs, IV fluids, albumin IV -required much of the above for several days post-op -started midodrine 2.5mg TID then titrated to 5mg TID -consider additional unit of PRBCs when volume status is improved; hemoglobin stable #cirrhosis - decompensated/advanced - -2nd to h/o etoh abuse? -advanced; previous CT a/p in 2022 with esophageal varices, splenomegaly, etc. -markedly decompensated with pulmonary edema/anasarca -typically takes 80mg of PO lasix at home -s/p lasix 20mg IV x 1 yesterday with good response -repeat lasix IV again today -diet - 2 gram salt restriction -continue spironolactone in addition to his lasix -Net negative 8 liters -due to previous liver lesions in 2022, etc will obtain CT liver w/ and w/o contrast for additional information -if pt's BPs ever stabilize should consider low-dose propranolol or nadalol but hold at this time given his BPs #acute hepatic encephalopathy - lactulose on hold due to diarrhea -aim for 3 BMs/day at minimum -Mental status is improved. #acute blood loss anemia - -2nd to right hip fracture, perioperative blood loss, frequent phlebotomy, etc. -cannot rule out GI losses but no report of melena/BRBPR -admit hemoglobin 12.9 -hemoglobin today 7.6 -he is s/p 1 unit of PRBCs earlier this admission -holding transfusion due to pulmonary edema will defer at this time -attempt to diurese, and if respiratory status is better tomorrow, then consider transfusion at that time -CBC in am #pancytopenia - -likely 2nd to advanced cirrhosis -also, in 2022, flow cytometry suggested he had B cell lymphoma - but he never had f/u for such -checked TSH, B12, folate - all wnl -serial CBC -transfuse as needed -consider formal heme/onc consult given the ?B cell lymphoma -CT a/p - look for lymphadenopathy #acute post-op pulmonary insufficiency - -suspect 2nd to pulmonary edema -diurese -underlying COPD could be contributing as well #Chronic Dyspnea/Emphysema - -2nd to COPD #Venous insufficiency - -resumed lasix #s/p cardiac pacemaker - -placed for high-degree AV block -follows with [facility] -Trivedi device #Thrombocytopenia - -Likely due to cirrhosis/hypersplenism -Baseline platelet count 50-70 -bottomed in the 40s, slowly trending up now in the 70s -CBC am #B-cell lymphoma - -s/p liver biopsy (numerous liver lesions on CT 2022) - B cells noted on that biopsy -s/p flow cytometry in 2022 -highly suggestive of B-Cell lymphoma -never had follow-up with oncology for this issue following 2022 admission #DVT proph - -with low platelets, ABLA, esophageal varices, etc avoid chemical means at this time -poor candidate for any chemical DVT proph - bit of a quandary very poor prognosis in light of advanced cirrhosis and ?underlying lymphoma strongly consider palliative care consult even if he/his want ongoing routine care Admission and Anticipated Discharge Date Admission Date: March 02, 2025 Subjective Patient reports no new symptoms. Continues to have loose stools. Physical Exam Physical Exam: gen - looks chronically unwell, less confused neck - JVD present - slightly improved mouth - MMM heart - RRR, s1 s2, 2/6 systolic murmur LSB lungs - lungs sound clearer abd - distended/body wall edema?; NT; BS+; no caput medosa - scrotal edema, waldrop in place ext - right leg with decreased edema R thigh, and 1-2+ edema from knee to foot on right; 1+ edema entire left leg from foot to thigh; pulses b/l feet 2+ Results & Data Results & Data Vital Signs (Past 12 Hours) Vital Signs Temp Pulse Resp BP Pulse Ox O2 Del Method O2 Flow Rate 03/13/25 15:17 36.7 C 73 16 102/58 L 96 Room Air 03/13/25 11:37 36.7 C 77 14 104/58 L 96 Nasal Cannula 2 PG Care Time/CCT Total # of Minutes Spent Total Time Spent with Patient: Total time spent is greater than 50% in coordination of care (as documented) at patient's floor/unit and/or counseling patient: Coding Level of Care Code 73233 SUB INP/OBS CARE 3/50MIN Diagnoses Age-related osteoporosis with current pathological fracture, right femur, subsequent encounter for fracture with routine healing M80.051D Pancytopenia D61.818 ALINE (acute kidney injury) N17.9 Age related osteoporosis, unspecified pathological fracture presence M81.0 Osteoporosis type: age-related Presence of current pathological fracture: unspecified Acute postoperative pulmonary insufficiency J95.2 Anasarca R60.1 Decompensated hepatic cirrhosis K72.90; K74.60 Status cardiac pacemaker Z95.0 Acute blood loss anemia D62 B-cell lymphoma C85.10 Hepatic encephalopathy K76.82 (4) Osteoporosis Osteoporosis type: age-related Presence of current pathological fracture: unspecified Qualified Code(s): M81.0 - Age-related osteoporosis without current pathological fracture
[2025-03-14 08:36] LABS: Hematocrit (blood only) 22.6 % (42.0-52.0); Hemoglobin 7.6 g/dl (14.0-18.0); Immature Granulocytes # (auto) 0.03 K/uL (0.01-0.20); Immature Granulocytes % (auto) 0.8 %; Mean Corpuscular Hemoglobin 34.7 pg (25.0-34.0); Mean Corpuscular Volume 103.2 fL (80.0-100.0); Platelet Count 82 K/uL (130-400); RDW Standard Deviation 61.8 fL (36.4-46.3); Red Blood Count 2.19 M/uL (4.70-6.10); White Blood Count 3.66 K/ul (4.8-10.8)
[2025-03-14 09:05] LABS: Polychromasia 2+
[2025-03-14 09:15] LABS: Alanine Aminotransferase 8.0 U/L (7-52); Albumin Globulin Ratio 1.4 (0.9-2); Alkaline Phosphatase 63.0 U/L (34-104); Anion Gap 5.0 (3-11); Bilirubin,Total 2.7 mg/dl (0.2-1.0); Blood Urea Nitrogen 18.0 mg/dl (6-23); Calcium 8.2 mg/dl (8.6-10.3); Carbon Dioxide 23.0 mmol/L (21-32); Chloride 100.0 mmol/L (98-107); Creatinine Clr Calc Pharmacy 125.9 ml/min; Globulin 2.2 gm/dl (2.5-4.0); Glucose 114.0 mg/dl (70-99(Fasting)); Potassium 4.5 mmol/L (3.5-5.1); Sodium 128.0 mmol/L (136-145); Total Protein 5.2 gm/dl (6.0-8.3)
--- NOTE | 2025-03-14 09:46 | Orthopedic Progress Note ---
Date of Service March 14, 2025 Assessment & Plan (1) Closed fracture of neck of right femur: Plan: Postop day #11 status post ORIF right hip fracture 03/03/[address] Hernández Dressings were changed by nursing earlier today. Nursing may reinforce as needed with Xeroform, ABDs and paper tape dressing. PT/OT Recommending rehab. Case management states the patient has a bed available at [facility]. Once he is medically stable he will be discharged there. Weight-bear as tolerated on the right lower extremity with a walker and max assist as he is high risk for falls. DVT prophylaxis and pain control per the primary team. Unable to do NEVAEH stockings given his lower extremity edema. They have been using SCDs. He currently is not receiving any DVT prophylaxis due to medical comorbidities. Patient with multiple medical problems currently being addressed. Per hospitalist note, there was discussion of palliative care consult. Patient has an appointment with us 03/15 in the office. If he is still here we will plan to remove his sutures then. Admission and Anticipated Discharge Date Admission Date: March 02, 2025 Subjective This 84-year-old male seen today for follow-up of right hip fracture treatment with long trochanteric nailing. States he is doing fairly well. He states that he did not anticipate on being in house for this long of a period of time. He states that he is met with case management but is not sure on or he will be discharged going forward. Patient states he is chronically short of breath and on oxygen via nasal cannula. He denies any chest pain, fever, chills, sweats, nausea, vomiting or numbness or tingling in his right lower extremity. He has been having loose stools and currently has a urinary catheter in place. Review of Systems Review of Systems: All systems reviewed & are unremarkable except as noted in Subjective Physical Exam Physical Exam: Right lower extremity: All dressings are clean dry and intact left in place. Patient is unable to perform active straight leg raise test. He is able to actively dorsi and plantarflex his foot and detect light sensation touch over the pads of all digits. He tolerates logroll testing without discomfort. I was only able to flex his hip to about 60 degrees before he experienced discomfort. He tolerates light passive internal and external hip rotation at this degree of flexion. His quad strength is 3 out of 5. He is neurovascularly intact in the right lower extremity. Results & Data Vital Signs (Past 12 Hours) Vital Signs Temp Pulse Resp BP Pulse Ox O2 Del Method O2 Flow Rate 03/14/25 08:00 Nasal Cannula 2 03/14/25 07:24 36.9 C 74 16 96/54 L 96 Nasal Cannula 2 03/14/25 00:02 37.0 C 78 18 104/57 L 93 Nasal Cannula 2 Diagnostic Findings Laboratory Results WBC 3.66 K/ul (4.8-10.8) L 03/14/25 08:04 RBC 2.19 M/uL (4.70-6.10) L 03/14/25 08:04 Hgb 7.6 g/dl (14.0-18.0) L 03/14/25 08:04 Hct 22.6 % (42.0-52.0) L 03/14/25 08:04 MCV 103.2 fL (80.0-100.0) H 03/14/25 08:04 MCH 34.7 pg (25.0-34.0) H 03/14/25 08:04 MCHC 33.6 g/dL (32.0-36.0) 03/14/25 08:04 RDW Std Deviation 61.8 fL (36.4-46.3) H 03/14/25 08:04 RDW Coeff of Irene 16.5 % (11.5-14.5) H 03/14/25 08:04 Plt Count 82 K/uL (130-400) L 03/14/25 08:04 MPV 10.3 fL (9.4-12.4) 03/14/25 08:04 Immature Gran % (Auto) 0.8 % 03/14/25 08:04 Neut % (Auto) 76.9 % 03/14/25 08:04 Lymph % (Auto) 7.7 % 03/14/25 08:04 [place] % (Auto) 10.7 % 03/14/25 08:04 Eos % (Auto) 3.6 % 03/14/25 08:04 Baso % (Auto) 0.3 % 03/14/25 08:04 Neut # (Auto) 2.82 K/uL (1.40-6.50) 03/14/25 08:04 Lymph # (Auto) 0.28 K/uL (1.20-3.40) L 03/14/25 08:04 [place] # (Auto) 0.39 K/uL (0.11-0.59) 03/14/25 08:04 Eos # (Auto) 0.13 K/uL (0.00-0.50) 03/14/25 08:04 Baso # (Auto) 0.01 K/uL (0.00-0.20) 03/14/25 08:04 Immature Gran # (Auto) 0.03 K/uL (0.01-0.20) 03/14/25 08:04 RBC Morphology Unremarkable 03/07/25 05:37 Polychromasia 2+ 03/14/25 08:04 Anisocytosis Present 03/11/25 05:55 Peripher Smr Path Cons 03/07/25 05:37 PT 13.0 Seconds (9.0-12.0) H 03/13/25 08:04 INR 1.2 (0.9-1.1) H 03/13/25 08:04 APTT 34 Seconds (21-31) H 03/02/25 16:46 PTT Ratio 1.3 03/02/25 16:46 Sodium 128 mmol/L (136-145) L 03/14/25 08:04 Potassium 4.5 mmol/L (3.5-5.1) 03/14/25 08:04 Chloride 100 mmol/L (98-107) 03/14/25 08:04 Carbon Dioxide 23 mmol/L (21-32) 03/14/25 08:04 Anion Gap 5 (3-11) 03/14/25 08:04 BUN 18 mg/dl (6-23) 03/14/25 08:04 Creatinine 0.55 mg/dl (0.6-1.4) L 03/14/25 08:04 Est Cr Clr Drug Dosing 125.9 ml/min 03/14/25 08:04 eGFR 98.95 03/14/25 08:04 BUN/Creatinine Ratio 32.7 (10-20) H 03/14/25 08:04 Glucose 114 mg/dl (70-99(Fasting)) H 03/14/25 08:04 Calcium 8.2 mg/dl (8.6-10.3) L 03/14/25 08:04 Magnesium 1.8 mg/dl (1.7-2.4) 03/07/25 05:37 Total Bilirubin 2.7 mg/dl (0.2-1.0) H 03/14/25 08:04 AST 20 U/L (13-39) 03/14/25 08:04 ALT 8 U/L (7-52) 03/14/25 08:04 Alkaline Phosphatase 63 U/L (34-104) 03/14/25 08:04 Ammonia 75.0 umol/L (18-72) H 03/14/25 08:04 Troponin I High Sens 20.7 pg/ml (0-20) H 03/02/25 16:46 C-Reactive Protein 1.17 mg/dl (0-0.5) H 03/02/25 17:35 B-Natriuretic Peptide 645 pg/ml (0-100) H 03/14/25 08:04 Total Protein 5.2 gm/dl (6.0-8.3) L 03/14/25 08:04 Albumin 3.0 gm/dl (3.4-5.0) L 03/14/25 08:04 Globulin 2.2 gm/dl (2.5-4.0) L 03/14/25 08:04 Albumin/Globulin Ratio 1.4 (0.9-2) 03/14/25 08:04 Vitamin B12 669 pg/ml (180-914) 03/07/25 05:37 25-OH Vitamin D Total 36.2 ng/ml (30-100) 03/04/25 07:58 Folate 15.01 ng/ml (>5.38) 03/07/25 05:37 Procalcitonin 0.19 ng/ml (0-0.5) 03/10/25 06:57 TSH 2.058 uIu/ml (0.300-4.500) 03/07/25 05:37 Urine Color Yellow 03/02/25 17:09 Urine Appearance Clear (Clear) 03/02/25 17:09 Urine pH 6.0 (4.5-7.5) 03/02/25 17:09 Ur Specific [place] 1.012 (1.000-1.030) 03/02/25 17:09 Urine Protein Negative (Negative) 03/02/25 17:09 Urine Glucose (UA) Negative (Negative) 03/02/25 17:09 Urine Ketones Negative (Negative) 03/02/25 17:09 Urine Blood Negative (Negative) 03/02/25 17:09 Urine Nitrite Negative (Negative) 03/02/25 17:09 Urine Bilirubin Negative (Negative) 03/02/25 17:09 Urine Urobilinogen Negative (Negative) 03/02/25 17:09 Ur Leukocyte Esterase 1+ (Negative) H 03/02/25 17:09 Urine WBC (Auto) 6-10 /hpf (0-5) H 03/02/25 17:09 Urine RBC (Auto) 0-2 /hpf (0-2) 03/02/25 17:09 U Hyaline Cast (Auto) 3-5 /lpf (0-2) H 03/02/25 17:09 U Epithel Cells (Auto) 0-2 /hpf (0-2) 03/02/25 17:09 Urine Bacteria (Auto) None Seen (None Seen) 03/02/25 17:09 Urine Comment 03/02/25 17:09 Blood Type A Negative 03/03/25 16:37 Blood Type Recheck A Negative 03/03/25 16:37 Antibody Screen NEGATIVE 03/03/25 16:37 Crossmatch See Detail 03/03/25 16:37 Impressions Chest X-Ray 03/02/25 16:01 Technique: A frontal view of the chest was obtained Findings: There is multifocal interstitial prominence throughout both lungs. The heart size is at the upper limit of normal. No pleural effusion or pneumothorax is seen. No fracture is noted. There is a left chest wall pacemaker device Impression: Diffuse pulmonary interstitial opacities that may be due to atypical pneumonia. Pulmonary edema is possible but felt to be less likely ACT 112: Positive. There are findings on this exam that require communication between the performing entity and the patient following Patient Test Result Information Act ([place] ACT 112) guidelines. Electronically signed by Vamsi Olivera 03-02-2025 5:14 PM Hip/Pelvis X-Ray 03/02/25 16:01 Clinical History: Pain after fall 3 views of the pelvis and right hip are submitted for review. Findings: There is an acute comminuted intertrochanteric fracture of the right femoral neck, with mild displacement and angulation of fracture fragments. No subluxation or dislocation is seen. No significant arthritic changes are noted. No other osseous abnormality is identified. There are no radiopaque foreign bodies. Impression: Acute fracture of the right femoral neck ACT 112: Positive. There are findings on this exam that require communication between the performing entity and the patient following Patient Test Result Information Act ([place] ACT 112) guidelines. Electronically signed by Vamsi Olivera 03-02-2025 5:[address] 03/02/25 18:55 CT of the chest without contrast Technique: Noncontrast axial images of the chest. Coronal and sagittal reformatted images made available for review No comparison Findings: Gynecomastia. Exam limited secondary to lack of IV contrast. Left chest wall dual-lead intracardiac device. Diffuse right greater than left apical predominant bullous emphysematous change. Linear atelectasis in the lung bases. Traction bronchiectasis in the left lower lobe. Trace right pleural effusion. Limited evaluation the upper abdomen demonstrates hepatic cirrhosis with splenomegaly. Impression Gynecomastia likely secondary to liver dysfunction. Hepatic cirrhosis with splenomegaly incompletely evaluated on this exam No acute pulmonary pathology. Electronically signed by Ryder Guerra 03-02-2025 8:47 PM Hip X-Ray 03/03/25 00:00 INTRAOPERATIVE RADIOGRAPHS CLINICAL HISTORY: Open reduction and internal fixation of the right proximal femur. Fluoro time: 103 seconds Ka,r: 34.74 mGy FINDINGS: 4 spot fluoroscopic views of the right femur are correlated with radiographs dated 03/02/2025. There has been intertrochanteric and intramedullary nail fixation of a comminuted intertrochanteric fracture of the right proximal femur with druze of near-anatomic alignment. A single cortical lag screw transfixes the distal end of the intramedullary nail. There is persistent medial displacement of the lesser trochanter. The orthopedic hardware appears intact. IMPRESSION: Intraoperative images from open reduction and internal fixation of the right proximal femur. Electronically signed by: Kaushal Griffiths M.D. 03/04/2025 7:[address] 03/07/25 12:35 CT OF THE ABDOMEN WITH AND WITHOUT CONTRAST LIVER PROTOCOL CLINICAL HISTORY: cirrhosis, copious liver lesions CT '23, ?lymphoma COMPARISON STUDY: CT of the abdomen and pelvis September 16, 2022. TECHNIQUE: Unenhanced, arterial and venous phase imaging of the abdomen was performed. Intravenous injection of 92 cc of Optiray 320 IV was uneventful. A dose lowering technique was utilized adhering to the principles of ALARA. FINDINGS: Cardiomegaly, pacer leads, small bilateral pleural effusions, interstitial pulmonary edema and gynecomastia within the lower chest are incidentally noted. Is no pneumatosis, free air or portal venous gas within the abdomen. As before, the liver is cirrhotic. Lateral segment and caudate hypertrophy with right hepatic lobe atrophy is again noted. This exam is compromised by suboptimal opacification and artifact. Several lateral segment hepatic lesions are noted. Overall, the number of hepatic hepatic lesions has decreased since CT of September 16, 2022. 2 lateral segment lesions persist. These are best depicted on the unenhanced portion of this exam and are hyperdense. The largest is a 2.8 cm lesion on image 17 of 57. This measured 2.[address] of September 16, 2022. There is an additional 2.5 cm lateral segment lesion. Characterization is difficult on this examination however these demonstrate minimal enhancement without washout. Moderate splenomegaly has mildly increased. Upper abdominal collaterals are noted including a splenorenal shunt. There is body wall edema. Adrenal glands, kidneys and pancreas are unremarkable. There is no hydronephrosis. There is no pancreatic ductal dilatation. Caliber and wall thickness of visualized small and large bowel are normal. L2 compression fracture with severe loss of vertebral body height and mild retropulsion is noted.. Body height loss has increased since radiographs of January 20, 2024. IMPRESSION: 1. Cirrhotic liver with manifestations of portal hypertension including splenomegaly and varices formation. 2. Overall, decrease in conspicuity of hepatic lesions since CT of September 16, 2022. Two lateral segment lesions, as described above, likely decreased since prior CT although characterization is difficult on this exam. These remain pathologically indeterminate and continued imaging follow-up is recommended. If interval treatment, the findings suggest a treatment response. If no interval treatment, the apparent lesions on prior study may have reflected regenerative nodules. 3. Cardiomegaly with evidence for pulmonary edema and small bilateral pleural effusions. ACT 112: Negative or not required by law. Electronically signed by: Boris Kraus M.D. 03/07/2025 3:50 PM Abdomen Ultrasound 03/10/25 10:04 LIMITED ABDOMINAL ULTRASOUND INDICATION: Paracentesis requested FINDINGS: Ultrasound imaging in all 4 abdominal quadrants was performed. No ascites was identified. No paracentesis was performed. IMPRESSION: No ascites noted to perform paracentesis. Performed, dictated, and signed by Raul Norris PA-C; to be co-signed by Dr. Boris Kraus. Electronically signed by: Boris Kraus M.D. 03/10/2025 2:48 PM Femur X-Ray 03/13/25 12:27 XR femur RT 2V routine CLINICAL HISTORY: 10 days s/p ORIF R femur fx COMPARISON: 03/03/2025 FINDINGS: Right femoral gamma nail shows no hardware complication. There is stable alignment at the proximal femur fracture. Skin karthik remain. IMPRESSION: Stable alignment. ACT 112: Negative or not required by law. Electronically signed by: Ian Roldan M.D. 03/13/2025 2:02 PM (1) Closed fracture of neck of right femur Encounter type: initial encounter Qualified Code(s): S72.001A - Fracture of unspecified part of neck of right femur, initial encounter for closed fracture
[2025-03-14] MEDS: LACTULOSE SYRUP 20 GM/30 ML UDC PO SCH (10:20)
[2025-03-14] MEDS: ALBUMIN 25% 25 GM/100 ML VIAL IV SCH (16:54)
[2025-03-14] MEDS: FUROSEMIDE 40 MG/4 ML VIAL IV ONE (16:55)
--- NOTE | 2025-03-14 22:49 | Hospitalist Progress Note ---
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 #age-related osteoporotic right femoral neck fracture - -s/p closed reduction with troch nail on 03/[address] Hernández, [facility] -25-OH Vitamin D level - 36 -PT/OT as able, but rehab potential may be limited by his advanced cirrhosis, cardiopulmonary status, etc. -norco prn mild/mod pain : will consider removing norco in AM due to confusion. This has been limited. -IV dilaudid prn for severe pain -stopped toradol due to h/o esophageal varices, etc. #ALINE - IMPROVED - -peak Cr 1.77 -admission Cr 0.74 -likely due to hypotension/renal hypoperfusion in the setting of cirrhosis -appears at baseline, -doubt he had hepatorenal syndrome -tolerating lasix/spironolactone, will resume albumin IV and lasix #hypotension - -2nd to acute blood loss anemia in the setting of advanced cirrhosis -s/p PRBCs, IV fluids, albumin IV -required much of the above for several days post-op -started midodrine 2.5mg TID then titrated to 5mg TID -consider additional unit of PRBCs when volume status is improved; hemoglobin stable #cirrhosis - decompensated/advanced - -2nd to h/o etoh abuse? -advanced; previous CT a/p in 2022 with esophageal varices, splenomegaly, etc. -markedly decompensated with pulmonary edema/anasarca -typically takes 80mg of PO lasix at home -s/p lasix 20mg IV x 1 yesterday with good response -repeat lasix IV again today -diet - 2 gram salt restriction -continue spironolactone in addition to his lasix -Patient has required daily IV albumin folllowed by IV lasix in addition to his PO medications for about a week now He has been responding to this. Will continue to try to get patient back to his dry state prior to discharge. -Net negative 9.5 liters -due to previous liver lesions in 2022, repeat CT scan showed improved size of lesions but 2 lesions remain. will likely need repeat imaging. -if pt's BPs ever stabilize should consider low-dose propranolol or nadalol but hold at this time given his BPs #acute hepatic encephalopathy - lactulose placed BID. -aim for 3 BMs/day at minimum -Mental status is improved. #acute blood loss anemia - -2nd to right hip fracture, perioperative blood loss, frequent phlebotomy, etc. -cannot rule out GI losses but no report of melena/BRBPR -admit hemoglobin 12.9 -hemoglobin has remained above 7 -he is s/p 1 unit of PRBCs earlier this admission -holding transfusion due to pulmonary edema will defer at this time -attempt to diurese, and if respiratory status is better tomorrow, then consider transfusion at that time -CBC in am #pancytopenia - -likely 2nd to advanced cirrhosis -also, in 2022, flow cytometry suggested he had B cell lymphoma - but he never had f/u for such -checked TSH, B12, folate - all wnl -serial CBC -transfuse as needed -consider formal heme/onc consult given the ?B cell lymphoma -CT a/p - look for lymphadenopathy #acute post-op pulmonary insufficiency - -suspect 2nd to pulmonary edema -diurese -underlying COPD could be contributing as well #Chronic Dyspnea/Emphysema - -2nd to COPD #Venous insufficiency - -resumed lasix #s/p cardiac pacemaker - -placed for high-degree AV block -follows with [facility] -[employer] device #Thrombocytopenia - -Likely due to cirrhosis/hypersplenism -Baseline platelet count 50-70 -bottomed in the 40s, slowly trending up now #B-cell lymphoma - -s/p liver biopsy (numerous liver lesions on CT 2022) - B cells noted on that biopsy -s/p flow cytometry in 2022 -highly suggestive of B-Cell lymphoma -never had follow-up with oncology for this issue following 2023 admission #DVT proph - -with low platelets, ABLA, esophageal varices, etc avoid chemical means at this time -poor candidate for any chemical DVT proph - bit of a quandary very poor prognosis in light of advanced cirrhosis and ?underlying lymphoma strongly consider palliative care consult even if he/his want ongoing routine care Admission and Anticipated Discharge Date Admission Date: March 02, 2025 Subjective 84 yo male reports not feeling any worse today. Physical Exam Physical Exam: gen - looks chronically unwell, no longer confused. neck - JVD present - slightly improved mouth - MMM heart - RRR, s1 s2, 2/6 systolic murmur LSB lungs - lungs sound clearer abd - distended/body wall edema?; NT; BS+; no caput medosa - scrotal edema, waldrop in place ext - right leg with decreased edema R thigh, and 1-2+ edema from knee to foot on right; 1+ edema entire left leg from foot to thigh; pulses b/l feet 2+ Results & Data Results & Data Vital Signs (Past 12 Hours) Vital Signs Temp Pulse Resp BP Pulse Ox O2 Del Method O2 Flow Rate 03/14/25 14:53 36.8 C 75 16 100/62 96 Nasal Cannula 2 PG Care Time/CCT Total # of Minutes Spent Total Time Spent with Patient: Total time spent is greater than 50% in coordination of care (as documented) at patient's floor/unit and/or counseling patient: Coding Level of Care Code 04311 SUB INP/OBS CARE 3/50MIN Diagnoses Age-related osteoporosis with current pathological fracture, right femur, subsequent encounter for fracture with routine healing M80.051D Pancytopenia D61.818 ALINE (acute kidney injury) N17.9 Age related osteoporosis, unspecified pathological fracture presence M81.0 Osteoporosis type: age-related Presence of current pathological fracture: unspecified Acute postoperative pulmonary insufficiency J95.2 Anasarca R60.1 Decompensated hepatic cirrhosis K72.90; K74.60 Status cardiac pacemaker Z95.0 Acute blood loss anemia D62 B-cell lymphoma C85.10 Hepatic encephalopathy K76.82 (4) Osteoporosis Osteoporosis type: age-related Presence of current pathological fracture: unspecified Qualified Code(s): M81.0 - Age-related osteoporosis without current pathological fracture
[2025-03-15 08:39] LABS: Hematocrit (blood only) 25.3 % (42.0-52.0); Hemoglobin 8.4 g/dl (14.0-18.0); Immature Granulocytes # (auto) 0.02 K/uL (0.01-0.20); Immature Granulocytes % (auto) 0.5 %; Mean Corpuscular Hemoglobin 34.1 pg (25.0-34.0); Mean Corpuscular Volume 102.8 fL (80.0-100.0); Platelet Count 84 K/uL (130-400); RDW Standard Deviation 62.7 fL (36.4-46.3); Red Blood Count 2.46 M/uL (4.70-6.10); White Blood Count 3.92 K/ul (4.8-10.8)
[2025-03-15 08:58] LABS: Alanine Aminotransferase 10.0 U/L (7-52); Albumin Globulin Ratio 1.5 (0.9-2); Alkaline Phosphatase 69.0 U/L (34-104); Anion Gap 7.0 (3-11); Bilirubin,Total 2.7 mg/dl (0.2-1.0); Blood Urea Nitrogen 18.0 mg/dl (6-23); Calcium 8.5 mg/dl (8.6-10.3); Carbon Dioxide 23.0 mmol/L (21-32); Chloride 102.0 mmol/L (98-107); Creatinine Clr Calc Pharmacy 121.5 ml/min; Globulin 2.2 gm/dl (2.5-4.0); Glucose 116.0 mg/dl (70-99(Fasting)); Potassium 4.4 mmol/L (3.5-5.1); Sodium 132.0 mmol/L (136-145); Total Protein 5.5 gm/dl (6.0-8.3)
[2025-03-15 09:49] LABS: Magnesium 1.7 mg/dl (1.7-2.4)
--- NOTE | 2025-03-15 11:57 | Orthopedic Progress Note ---
Date of Service March 15, 2025 Assessment & Plan (1) Closed fracture of neck of right femur: Plan: Postop day #12 status post ORIF right hip fracture 03/03/[address] Hernández The plan was to remove karthik today however coordinated with Dr. Hernández who would like to leave the karthik in at least until 03/17/2025 or possibly 03/20/2025. New dressings on the proximal and middle incisions were applied by myself today. Xeroform, ABD pads, paper tape. The distal incision was left as it is clean, dry, intact. Opti-foam was placed on the right groin skin irritation. This may be secondary to maceration from groin fold. PT/OT Recommending rehab. Case management states the patient has a bed available at [facility]. Son stated they may be considering [facility] instead. Weight-bear as tolerated on the right lower extremity with a walker and max assist as he is high risk for falls. DVT prophylaxis and pain control per the primary team. Unable to do NEVAEH stockings given his lower extremity edema. They have been using SCDs. He currently is not receiving any DVT prophylaxis due to medical comorbidities. Patient with multiple medical problems currently being addressed. Will need to closely follow hospitalist and case management notes to determine when the patient might be discharged. This may influence when karthik are removed versus scheduling an outpatient appointment to have karthik removed. Otherwise, Dr. Hernández would like to see the patient in the office in 4 weeks. Will reach out to our schedulers to coordinate this appointment. Admission and Anticipated Discharge Date Admission Date: March 02, 2025 Subjective Patient seen in bed with his son at the bedside. He denies any concerns at this time. Not experiencing much pain in the right hip or right leg currently Physical Exam Constitutional: Resting comfortably sitting upright in bed. No distress. Cardiovascular: Right DP pulse 2+ Musculoskeletal: Right lower extremity: There was a small amount of serous fluid soaked into the ABD pad at the proximal incision. Some of the tape was rolled up underneath the patient at the middle incision. Both of these dressings were removed. Underlying incisions appear to be well-approximated with karthik. There are 2 small serous fluid-filled blisters adjacent to the middle incision on the lateral thigh. There is no surrounding erythema. No dehiscence. No active drainage. Most distal incision is clean, dry, intact. There is no pain in the right hip with general movement of the patient. Strength 5/5 with ankle plantarflexion, dorsiflexion, eversion. Skin: 2 dime sized areas of superficial skin i rritation in the right groin. Neurologic: No sensory deficits bilateral lower extremities to light touch Results & Data Vital Signs (Past 12 Hours) Vital Signs Temp Pulse Resp BP Pulse Ox O2 Del Method O2 Flow Rate 03/15/25 09:00 Nasal Cannula 2 03/15/25 07:38 97.7 F 81 18 101/55 L 95 Nasal Cannula 2 Laboratory Results 03/15/25 08:04 WBC 3.92 L RBC 2.46 L Hgb 8.4 L Hct 25.3 L MCV 102.8 H MCH 34.1 H MCHC 33.2 RDW Std Deviation 62.7 H RDW Coeff of Irene 16.6 H Plt Count 84 L MPV 10.1 Immature Gran % (Auto) 0.5 Neut % (Auto) 75.3 Lymph % (Auto) 10.5 [place] % (Auto) 9.4 Eos % (Auto) 3.8 Baso % (Auto) 0.5 Neut # (Auto) 2.95 Lymph # (Auto) 0.41 L [place] # (Auto) 0.37 Eos # (Auto) 0.15 Baso # (Auto) 0.02 Immature Gran # (Auto) 0.02 Sodium 132 L Potassium 4.4 Chloride 102 Carbon Dioxide 23 Anion Gap 7 BUN 18 Creatinine 0.57 L Est Cr Clr Drug Dosing 121.5 eGFR 97.89 BUN/Creatinine Ratio 31.6 H Glucose 116 H Calcium 8.5 L Magnesium 1.7 Total Bilirubin 2.7 H AST 22 ALT 10 Alkaline Phosphatase 69 B-Natriuretic Peptide 806 H Total Protein 5.5 L Albumin 3.3 L Globulin 2.2 L Albumin/Globulin Ratio 1.5 (1) Closed fracture of neck of right femur Encounter type: initial encounter Qualified Code(s): S72.001A - Fracture of unspecified part of neck of right femur, initial encounter for closed fracture
--- NOTE | 2025-03-15 13:42 | Hospitalist Progress Note ---
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 #age-related osteoporotic right femoral neck fracture - -s/p closed reduction with troch nail on 03/[address] Hernández, [facility] -25-OH Vitamin D level - 36 -PT/OT as able, but has been limited by right hip pain, severe deconditioning, dyspnea, etc. -rehab potential may be limited by his advanced cirrhosis, cardiopulmonary status, etc. -norco prn mild/mod pain especially before ambulation & PT/OT sessions -IV dilaudid prn for severe pain #ALINE - resolved - -peak Cr 1.77 -admission Cr 0.74 -likely due to hypotension/renal hypoperfusion in the setting of cirrhosis -BMP am #hypotension - resolved - -2nd to acute blood loss anemia in the setting of advanced cirrhosis -s/p PRBCs, IV fluids, albumin IV -was on albumin last few days but it is very transient and unlikely to help with diuresis thus will stop the albumin IV -continue midodrine 5mg TID #cirrhosis - decompensated/advanced - -2nd to h/o etoh abuse? -advanced; previous CT a/p in 2022 with esophageal varices, splenomegaly, etc. -CT with similar findings this admission -still markedly decompensated with pulmonary edema/anasarca -typically takes 80mg of PO lasix at home -now on lasix 40mg qam and aldactone 100mg qam -give additional lasix 40mg IV x 1 this afternoon -cont 2 gram salt restricted diet -due to previous liver lesions in [address] liver w/ and w/o contrast -liver lesions are less in # and smaller -this would argue against cancerous process -if pt's BPs stabilize should consider low-dose propranolol or nadalol for portal HTN but cont to hold off at this time #hepatic encephalopathy - improved/resolved - -cont lactulose 30gm BID -aim for 3 BMs/day at minimum #acute blood loss anemia - -2nd to right hip fracture, perioperative blood loss, frequent phlebotomy, etc. -cannot rule out GI losses but no report of melena/BRBPR -admit hemoglobin 12.9 -he is s/p 1 unit of PRBCs earlier this admission -H/H acceptable today #pancytopenia - -likely 2nd to advanced cirrhosis -also, in 2022, flow cytometry suggested he had B cell lymphoma - but he never had f/u for such -checked TSH, B12, folate - all wnl -serial CBC -transfuse as needed -consider formal heme/onc consult given the ?B cell lymphoma -CT a/p - no pathological lymphadenopathy seen #acute post-op pulmonary insufficiency - -2nd to pulmonary edema -cont to diurese -underlying COPD could be contributing as well #Chronic Dyspnea/Emphysema - -2nd to COPD -add Breo 1 puff daily -add Incruse Ellipta 1 puff daily -diurese #Venous insufficiency - -cont lasix #s/p cardiac pacemaker - -placed for high-degree AV block -follows with [facility] -[email or web address] device #Thrombocytopenia - -Likely due to cirrhosis/hypersplenism -Baseline platelet count 50-70 -bottomed in the 40s and continues to improve #B-cell lymphoma - -s/p liver biopsy (numerous liver lesions on CT 2022) - B cells noted on that biopsy -s/p flow cytometry in 2022 -highly suggestive of B-Cell lymphoma -never had follow-up with oncology for this issue following 2022 admission #DVT proph - -at this point H/H are stable and platelets are satisfactory -he does have varices, but he is at HIGH risk of VTE as he is essentially bed- bound right now -CAUTIOUSLY start aspirin 81mg BID tomorrow; add PPI twice daily for GI prophy -follow CBCs carefully -of note - will check doppler of RLE due to pain, edema, being off DVT proph, etc -- r/o acute DVT -check pCXR - reassess pulm edema, infiltrates extensively updated at bedside today questions answered very poor prognosis in light of advanced cirrhosis and ?underlying lymphoma will talk with pt/pt's tomorrow about getting palliative care consult Admission and Anticipated Discharge Date Admission Date: March 02, 2025 Subjective patient lying in bed at bedside he denies any right hip pain at rest, but with any movement he has pain immedi ately with working with PT/OT he can barely stand and his "knees feel weak" with numerous questions about his pain, rehab potential, care plan, etc. he continues to have severe dyspnea with just rolling over in bed some cough no nausea/vomiting having 3+ stools/day Review of Systems Review of Systems: CV - no chest pain GI - no abd pain gen - weak, fatigued, tired Physical Exam Physical Exam: gen - looks similar to my last visit with him 7+ days ago, still very dyspneic with any movement, more awake/alert neck - JVD+ mouth - MMM heart - RRR, s1 s2, 2/6 systolic murmur LSB lungs - b/l basilar crackles with scattered wheezes; dyspneic with any movement in bed abd - soft, NT; BS+; no caput medosa; spleen palpable; there is flank edema/3rd spacing ext - right leg with ongoing mod-severe edema R thigh 2-3+; [place]/ankle on right 1-2+ edema; 1+ edema LLE; pulses b/l feet 2+ neuro - asterixis negative today psych - mentation improved skin - dressings intact Right lateral thigh Results & Data Results & Data Vital Signs (Past 12 Hours) Vital Signs Temp Pulse Resp BP Pulse Ox O2 Del Method O2 Flow Rate 03/15/25 09:00 Nasal Cannula 2 03/15/25 07:38 36.5 C 81 18 101/55 L 95 Nasal Cannula 2 Laboratory Results Laboratory Results - last 24 hr 03/15/25 08:04 WBC 3.92 L RBC 2.46 L Hgb 8.4 L Hct 25.3 L MCV 102.8 H MCH 34.1 H MCHC 33.2 RDW Std Deviation 62.7 H RDW Coeff of Irene 16.6 H Plt Count 84 L MPV 10.1 Immature Gran % (Auto) 0.5 Neut % (Auto) 75.3 Lymph % (Auto) 10.5 [place] % (Auto) 9.4 Eos % (Auto) 3.8 Baso % (Auto) 0.5 Neut # (Auto) 2.95 Lymph # (Auto) 0.41 L [place] # (Auto) 0.37 Eos # (Auto) 0.15 Baso # (Auto) 0.02 Immature Gran # (Auto) 0.02 Sodium 132 L Potassium 4.4 Chloride 102 Carbon Dioxide 23 Anion Gap 7 BUN 18 Creatinine 0.57 L Est Cr Clr Drug Dosing 121.5 eGFR 97.89 BUN/Creatinine Ratio 31.6 H Glucose 116 H Calcium 8.5 L Magnesium 1.7 Total Bilirubin 2.7 H AST 22 ALT 10 Alkaline Phosphatase 69 B-Natriuretic Peptide 806 H Total Protein 5.5 L Albumin 3.3 L Globulin 2.2 L Albumin/Globulin Ratio 1.5 PG Care Time/CCT Total # of Minutes Spent Total Time Spent with Patient: Total time spent is greater than 50% in coordination of care (as documented) at patient's floor/unit and/or counseling patient: Coding Level of Care Code 55224 SUB INP/OBS CARE 3/50MIN Diagnoses Age-related osteoporosis with current pathological fracture, right femur, subsequent encounter for fracture with routine healing M80.051D Pancytopenia D61.818 ALINE (acute kidney injury) N17.9 Age related osteoporosis, unspecified pathological fracture presence M81.0 Osteoporosis type: age-related Presence of current pathological fracture: unspecified Acute postoperative pulmonary insufficiency J95.2 Anasarca R60.1 Decompensated hepatic cirrhosis K72.90; K74.60 Status cardiac pacemaker Z95.0 Acute blood loss anemia D62 B-cell lymphoma C85.10 Hepatic encephalopathy K76.82 (4) Osteoporosis Osteoporosis type: age-related Presence of current pathological fracture: unspecified Qualified Code(s): M81.0 - Age-related osteoporosis without current pathological fracture
--- NOTE | 2025-03-15 14:07 | XRay Report ---
XR chest 1V portable CLINICAL HISTORY: pulm edema/dyspnea COMPARISON STUDY: 03/02/2025 FINDINGS: Stable pacemaker. Stable cardiomegaly with pulmonary vascular congestion. Stable diffuse in terstitial pulmonary opacities. No pleural effusion or pneumothorax. Stable emphysema. IMPRESSION: CHF and emphysema. ACT 112: Negative or not required by law. Electronically signed by: Ian Roldan M.D. 03/15/2025 2:05 PM
--- NOTE | 2025-03-15 15:17 | Ultrasound Report ---
US venous doppler LE RT HISTORY: 84 years-old Male recent R hip surgery, severe edema; ?DVT COMPARISON: 03/14/2024 TECHNIQUE: Multiple real-time sonographic images of the right lower extremity deep venous structures were obtained assessing grayscale appearance, color and spectral flow. FINDINGS: Normal flow, compressibility, phasicity and augmentation. IMPRESSION: No sonographic evidence of deep venous thrombosis. ACT 112: Negative or not required by law. The above report was generated using voice recognition software. It may contain grammatical, syntax o r spelling errors. Electronically signed by: Miguel Angel Harris M.D. 03/15/2025 3:15 PM
[2025-03-15] MEDS: FUROSEMIDE 40 MG/4 ML VIAL IV ONE (17:16)
[2025-03-16 07:56] LABS: Hematocrit (blood only) 24.9 % (42.0-52.0); Hemoglobin 8.3 g/dl (14.0-18.0); Immature Granulocytes # (auto) 0.02 K/uL (0.01-0.20); Immature Granulocytes % (auto) 0.5 %; Mean Corpuscular Hemoglobin 34.6 pg (25.0-34.0); Mean Corpuscular Volume 103.8 fL (80.0-100.0); Platelet Count 85 K/uL (130-400); RDW Standard Deviation 63.4 fL (36.4-46.3); Red Blood Count 2.40 M/uL (4.70-6.10); White Blood Count 4.05 K/ul (4.8-10.8)
[2025-03-16 08:18] LABS: Anion Gap 5.0 (3-11); Blood Urea Nitrogen 17.0 mg/dl (6-23); Calcium 8.3 mg/dl (8.6-10.3); Carbon Dioxide 24.0 mmol/L (21-32); Chloride 104.0 mmol/L (98-107); Creatinine Clr Calc Pharmacy 115.4 ml/min; Glucose 112.0 mg/dl (70-99(Fasting)); Potassium 4.2 mmol/L (3.5-5.1); Sodium 133.0 mmol/L (136-145)
[2025-03-16] MEDS: FLUTICASONE/VILANTEROL 100/25MCG 14 PUFFS/INHALER INH SCH (09:27)
[2025-03-16] MEDS: UMECLIDINIUM BROMIDE 62.5MCG/BLISTER 7 PUFFS/INHALER INH SCH (09:28)
[2025-03-16] MEDS: ASPIRIN 81 MG ECTAB PO SCH (09:41)
[2025-03-16] MEDS: FUROSEMIDE 40 MG/4 ML VIAL IV ONE (09:44)
[2025-03-16] MEDS: FUROSEMIDE INJ 20 MG/2 ML VIAL IV ONE (15:49)
--- NOTE | 2025-03-16 20:28 | Hospitalist Progress Note ---
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 #age-related osteoporotic right femoral neck fracture - -s/p closed reduction with troch nail on 03/[address] Hernández, [facility] -25-OH Vitamin D level - 36 -PT/OT has been limited by right hip pain, severe deconditioning, dyspnea, etc. -rehab potential may be limited by his advanced cirrhosis, cardiopulmonary status, etc. -norco prn mild/mod pain especially before ambulation & PT/OT sessions -IV dilaudid prn for severe pain #ALINE - resolved - -peak Cr 1.77 -admission Cr 0.74 -likely due to hypotension/renal hypoperfusion in the setting of cirrhosis -Cr again stable today in face of diuresis -BMP am #hypotension - resolved - -2nd to acute blood loss anemia in the setting of advanced cirrhosis -s/p PRBCs, IV fluids, albumin IV -was on albumin last few days but it is very transient and unlikely to help with diuresis thus will stop the albumin IV -continue midodrine 5mg TID #cirrhosis - decompensated/advanced - -2nd to h/o etoh abuse? -advanced; previous CT a/p in 2022 with esophageal varices, splenomegaly, etc. -CT with similar findings this admission -still markedly decompensated with pulmonary edema/anasarca -typically takes 80mg of PO lasix at home -now on lasix 40mg qam and aldactone 100mg qam -hold AM lasix; give lasix 40mg IV x 1 this am and 20mg this afternoon (also IV) -cont 2 gram salt restricted diet -due to previous liver lesions in [address] liver w/ and w/o contrast -liver lesions are less in # and smaller -this would argue against cancerous process but not entirely ruled out -if pt's BPs stabilize should consider low-dose propranolol or nadalol for portal HTN but cont to hold off at this time #hepatic encephalopathy - improved - -cont lactulose 30gm BID -aim for 3 BMs/day at minimum #acute blood loss anemia - -2nd to right hip fracture, perioperative blood loss, frequent phlebotomy, etc. -cannot rule out GI losses but no report of melena/BRBPR -admit hemoglobin 12.9 -he is s/p 1 unit of PRBCs earlier this admission -H/H have been acceptable last 2-3 days #pancytopenia - -likely 2nd to advanced cirrhosis -also, in 2022, flow cytometry suggested he had B cell lymphoma - but he never had f/u for such -checked TSH, B12, folate - all wnl -serial CBC -transfuse as needed -consider formal heme/onc consult given the ?B cell lymphoma -CT chest/a/p - no pathological lymphadenopathy seen #acute post-op pulmonary insufficiency - -2nd to pulmonary edema -cont to diurese -underlying COPD could be contributing as well #Chronic Dyspnea/Emphysema - -2nd to COPD -added Breo 1 puff daily -added Incruse Ellipta 1 puff daily -diurese -wean O2 as tolerated #Venous insufficiency - -cont lasix #s/p cardiac pacemaker - -placed for high-degree AV block -follows with [email or web address] -[employer] device -will grab an interrogation while here #Thrombocytopenia - -Likely due to cirrhosis/hypersplenism -Baseline platelet count 50-70 -bottomed in the 40s and continues to improve daily #B-cell lymphoma - suspected - -s/p liver biopsy (numerous liver lesions on CT 2022) - B cells noted on that biopsy but no conclusive -s/p flow cytometry in 2022 -- that was highly suggestive of B-Cell lymphoma -hwoever, never had follow-up with oncology for this issue following 2022 admission #DVT proph - -he does have varices, but he is at HIGH risk of VTE as he is essentially bed- bound right now -CAUTIOUSLY started aspirin 81mg BID tomorrow; added PPI twice daily for GI prophy -follow CBCs carefully -doppler RLE was neg for DVT extensively updated at bedside yesterday very poor prognosis in light of advanced cirrhosis, COPD, and ?underlying lymphoma pt agreeable to palliative care consult Admission and Anticipated Discharge Date Admission Date: March 02, 2025 Subjective still with R hip pain with ambulation did stand today with therapy and took a couple of steps but needing 2 assist for such still very short of breath with any activity including just moving in bed mild cough eating well moving bowels Review of Systems Review of Systems: cv - no cp pulm - no sputum GI - no abd pain or N/V Physical Exam Physical Exam: gen - still dyspneic with any movement, awake/alert, had fecal incontinence during my rounds w/ him neck - JVD+ still present mouth - MMM heart - RRR, s1 s2, 2/6 systolic murmur LSB lungs - b/l basilar crackles with scattered wheezes; dyspneic with any movement in bed abd - soft, NT; BS+; no caput medosa; spleen palpable; there is flank edema/3rd spacing still ext - right leg with mod edema R thigh 2+; [place]/ankle on right 1+ edema; 1+ edema LLE; pulses b/l feet 2+ psych - mild confusion, he did not remember that his was here yesterday skin - dressings intact Right lateral thigh Results & Data Results & Data Vital Signs (Past 12 Hours) Vital Signs Temp Pulse Resp BP Pulse Ox O2 Del Method O2 Flow Rate 03/16/25 14:35 36.7 C 81 20 114/56 L 95 Nasal Cannula 2 Laboratory Results Laboratory Results - last 24 hr 03/16/25 07:10 WBC 4.05 L RBC 2.40 L Hgb 8.3 L Hct 24.9 L MCV 103.8 H MCH 34.6 H MCHC 33.3 RDW Std Deviation 63.4 H RDW Coeff of Irene 16.8 H Plt Count 85 L MPV 9.9 Immature Gran % (Auto) 0.5 Neut % (Auto) 74.3 Lymph % (Auto) 8.4 [place] % (Auto) 11.9 Eos % (Auto) 4.4 Baso % (Auto) 0.5 Neut # (Auto) 3.01 Lymph # (Auto) 0.34 L [place] # (Auto) 0.48 Eos # (Auto) 0.18 Baso # (Auto) 0.02 Immature Gran # (Auto) 0.02 Sodium 133 L Potassium 4.2 Chloride 104 Carbon Dioxide 24 Anion Gap 5 BUN 17 Creatinine 0.60 Est Cr Clr Drug Dosing 115.4 eGFR 96.38 BUN/Creatinine Ratio 28.3 H Glucose 112 H Calcium 8.3 L PG Care Time/CCT Total # of Minutes Spent Total Time Spent with Patient: Total time spent is greater than 50% in coordination of care (as documented) at patient's floor/unit and/or counseling patient: Coding Level of Care Code 63678 SUB INP/OBS CARE 2/35MIN Diagnoses Age-related osteoporosis with current pathological fracture, right femur, subsequent encounter for fracture with routine healing M80.051D Pancytopenia D61.818 ALINE (acute kidney injury) N17.9 Age related osteoporosis, unspecified pathological fracture presence M81.0 Osteoporosis type: age-related Presence of current pathological fracture: unspecified Acute postoperative pulmonary insufficiency J95.2 Anasarca R60.1 Decompensated hepatic cirrhosis K72.90; K74.60 Status cardiac pacemaker Z95.0 Acute blood loss anemia D62 B-cell lymphoma C85.10 Hepatic encephalopathy K76.82 (4) Osteoporosis Osteoporosis type: age-related Presence of current pathological fracture: unspecified Qualified Code(s): M81.0 - Age-related osteoporosis without current pathological fracture
[2025-03-17 09:13] LABS: Hematocrit (blood only) 26.6 % (42.0-52.0); Hemoglobin 8.7 g/dl (14.0-18.0); Mean Corpuscular Hemoglobin 34.1 pg (25.0-34.0); Mean Corpuscular Volume 104.3 fL (80.0-100.0); Platelet Count 93 K/uL (130-400); RDW Standard Deviation 64.3 fL (36.4-46.3); Red Blood Count 2.55 M/uL (4.70-6.10); White Blood Count 4.88 K/ul (4.8-10.8)
[2025-03-17 09:35] LABS: Anion Gap 5.0 (3-11); Blood Urea Nitrogen 15.0 mg/dl (6-23); Calcium 8.4 mg/dl (8.6-10.3); Carbon Dioxide 26.0 mmol/L (21-32); Chloride 102.0 mmol/L (98-107); Creatinine Clr Calc Pharmacy 119.4 ml/min; Glucose 107.0 mg/dl (70-99(Fasting)); Magnesium 1.6 mg/dl (1.7-2.4); Potassium 4.7 mmol/L (3.5-5.1); Sodium 133.0 mmol/L (136-145)
[2025-03-17] MEDS: MAGNESIUM SULFATE / D5W 1 GM/100 ML BAG IV SCH (10:27)
[2025-03-17] MEDS: FUROSEMIDE 40 MG/4 ML VIAL IV ONE (10:27)
--- NOTE | 2025-03-17 10:38 | Orthopedic Progress Note ---
Date of Service March 17, 2025 Assessment & Plan (1) Closed fracture of neck of right femur: Plan: Postop day #13 status post ORIF right hip fracture 03/03/[address] Hernández[address] Dr. Coughlin covering today. Care was coordinated with hospitalist. Patient will likely remain in the hospital through the weekend and will be here on Thursday. We will anticipate to remove karthik on 03/20/2025 pending evaluation of the wounds. All dressings were changed today. Patient did have a very small area of erythema in the middle of the most proximal incision and I was able to express 2 drops of serosanguineous fluid through the incision. Reviewed this with Dr. Coughlin. We would like him to have a CBC on 03/20/2025, we will place this order just to ensure he is not having an elevated white blood cell count. Low suspicion for infection but will continue to monitor closely. 2 of his superficial blisters at the middle incision have popped. These can be covered with Xeroform, ABD pad, paper tape. Recommend continuing PT and OT. Encourage out of bed to chair. He is weightbearing as tolerated with a walker and max assist, high risk for falls. DVT prophylaxis and pain control per primary team. Currently not on any DVT prophylaxis due to medical comorbidities. NEVAEH stockings when edema allows. Patient with ongoing medical problems currently being addressed. A 4-week from now appointment has been scheduled and listed in discharge tab. With Dr. Hernández, x-rays at that visit. Admission and Anticipated Discharge Date Admission Date: March 02, 2025 Subjective Patient seen in bed today. He is doing as best he can. He would like to leave at some point just because he feels like he has been here for a long time. Still having a lot of pain in the right hip when he tries to ambulate, but no pain at rest or when he moves the hip around in bed. He has been trying to do a straight leg raise. Physical Exam Constitutional: Resting comfortably in bed, no distress. Cardiovascular: Right DP pulse 2+ Musculoskeletal: Right lower extremity: All hip dressings were removed today. There is general edema in the thigh. Old ecchymotic changes in multiple dependent areas. Most proximal incision: Quarter sized area of erythema located in the middle of the incision. Able to express 2 drops of serosanguineous fluid through the incision. Incision is otherwise approximated with karthik. Middle incision: 2 serous fluid blisters have popped overnight. 1 small intact blister remains. No surrounding erythema. Incision is well-approximated with karthik. No drainage through the incision. Distal incision: Approximated with karthik. No erythema. No blisters. No drainage. Patient able to initiate straight leg raise however is only able to raise the leg 1 to 2 cm off the bed. He does not have any pain with gentle passive hip flexion and extension or logroll of the hip. He is able to tolerate rolling onto the left side for dressing change with minimal discomfort Strength 5/5 with ankle plantarflexion, dorsiflexion, eversion. Neurologic: No sensory deficits right lower extremity to light touch Results & Data Vital Signs (Past 12 Hours) Vital Signs Temp Pulse Resp BP BP Pulse Ox O2 Del Method 03/17/25 09:43 91 Room Air 03/17/25 07:50 98.1 F 72 18 101/50 L 97 Room Air 03/16/25 23:04 98.1 F 82 18 102/61 98 Nasal Cannula Laboratory Results 03/17/25 08:03 WBC 4.88 RBC 2.55 L Hgb 8.7 L Hct 26.6 L MCV 104.3 H MCH 34.1 H MCHC 32.7 RDW Std Deviation 64.3 H RDW Coeff of Irene 16.9 H Plt Count 93 L MPV 10.0 Sodium 133 L Potassium 4.7 Chloride 102 Carbon Dioxide 26 Anion Gap 5 BUN 15 Creatinine 0.58 L Est Cr Clr Drug Dosing 119.4 eGFR 97.37 BUN/Creatinine Ratio 25.9 H Glucose 107 H Calcium 8.4 L Magnesium 1.6 L (1) Closed fracture of neck of right femur Encounter type: initial encounter Qualified Code(s): S72.001A - Fracture of unspecified part of neck of right femur, initial encounter for closed fracture
--- NOTE | 2025-03-17 15:29 | Palliative Care Consultation ---
Date of Consultation March 17, 2025 Assessment & Plan (1) Palliative care by specialist: Met with pt and his at bedside. Introduced Palliative Medicine and explained our role in advanced care planning, symptom management and navigation through the progression of life limiting disea se. Patient and/or family were receptive to palliative services for goals of care discussions. Reviewed we are different from hospice, a home health nurse visiting service. (2) Discussion about advance care planning held with family member: Met with family to discuss ACP from 12:45 - 13:30 and Mrs Hi have been for 49.5 years and have one son, who lives locally, and two grand children ages 3 and 5y. 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 They live together in a single level home and he is hopeful to return to living at home with her. Mrs Hi expressed concern that he will "end up in [place] and they will just let him lie there all day". Mr Hi expressed frustration that he is in hospital and that it is his fault that he fell. Mr Hi shred that he does not know much about his liver problems or any lung disease, but did assert that he has history of COPD. We discussed his medical problems including osteoporosis, emphysema, and cirrhosis that all contribute to his weakness and put him at high risk for falls, fractures and other complications requiring frequent hospital izations. Pt expressed frustration that "my mind is sharp and I want to keep going". He shared that he still wants to fix things and works with his hands but is learning that he cannot anymore. Discussed the progressively debilitating and irreversible nature of COPD as well as cirrhosis and importance of therapy, symptom management, avoidance of hepatotoxic agents and RT to optimize his quality of life. Discussed outpt palliative care and the role of palliative care clinic is assisting with advanced care planning, symptom management and navigation through the progression of life limiting disease. Pt and his are agreeable to follow up with outpt palliative care in clinic. (3) Counseling regarding advanced directives and goals of care: Pt expressed desire to continue with PT/OT to optimize strength, mobility and independence. He and his are hopeful that pt will recover ability to live independently after rehab, but considering SNF placement if needed. Discussed code status and helped pt and his understand that CPR is only done after a person has and involves uncomfortable and invasive procedures that, if successful, have high risk of multiple complications including but not limited to rib fractures, pneumo/hemothorax, ALINE, ventilator dependence, anoxic brain injury, and terminal superintendent/permanent cognitive and functional deficits. CPR survival: Only about 10% of patients who have [id number]-[id number] sudden cardiac arrest survive to hospital discharge, with many survivors having neurologic impairment. This rate is even lower among patients with serious coexisting conditions, ie chance of survival to hospital discharge for in- hospital CPR in older people is low to moderate (15%) and decreases with age, comorbidities, performance status and frailty: for pts > 70 yo, more than half of the patients who initially survived resuscitation in the hospital before hospital discharge. The pooled survival to discharge after in-hospital CPR was 18% for patients between 70 and 79 years old, 15% for patients between 80 and 89 years old and 11% for patients of 90 years and older. (Doe NGUYỄNY, Kaveh LJ, Geeta F, et al. Trends in short- and long-term survival among mdd-pe-dwkwofup cardiac arrest patients alive at hospital arrival. Circulation 2014;130:1883- 1890. AND Issteven C, Lio T, Rasmartih R, et al. Performance of clinical risk scores to predict mortality and neurological outcome in cardiac arrest patients. Resuscitation 2019;136:21-29.) Pt and his were in agreement that resuscitative effort would not afford him an acceptable quality of life and request change to DNR/DNI. Plan DNR/DNI continue all other life prolonging treatments. History of Present Illness Reason for Consultation: goals of care Requesting Physician: Ruiz Palacios MD Attending Physician: Ruiz Palacios MD History of Present Illness Mr. Hi is an 84 y.o. M with past medical history of high degree AV block, MVR, ex-smoker, s/p pacemaker for trifasicular heart block, liver lesions presents to the hospital due to fall. S/p closed reduction for right upper femur fracture with internal fixation on 03/03. Allergies Allergy/AdvReac Type Severity Reaction Status Date / Time No Known Allergies Allergy Verified 03/02/25 17:25 Home Medications Medication Instructions Recorded Confirmed Type fvlnipcr-dto-rbnff acid 0.4 1 tab PO DAILY 09/16/22 03/02/25 History mg-lycopene 300 mcg-lutein 250 mcg tablet (Centrum Silver) folic acid 1 mg tablet 1 mg PO QAM #30 tabs 09/21/22 03/02/25 Rx azelastine 137 mcg (0.1 %) nasal 1 spray intranasal AMHS 03/13/24 03/02/25 History spray calcium carbonate 600 mg PO BIDM 03/13/24 03/02/25 History spironolactone 25 mg tablet 25 mg PO QAM 03/13/24 03/02/25 History thiamine HCl (vitamin B1) 100 mg 100 mg PO QAM 03/13/24 03/02/25 History tablet furosemide 40 mg tablet 80 mg PO QAM 03/02/25 03/02/25 History potassium 99 mg tablet 99 mg PO Q OTHER DAY 03/02/25 03/02/25 History triamcinolone acetonide 0.5 % 1 applic topical BID 03/02/25 03/02/25 History topical cream Patient History Medical History Gout Surgical History Hx of knee surgery Hx of hernia repair Hx of cataract extraction Hx of sinus surgery History of selective laser trabeculoplasty Family History Brother Heart disease Social History Smoking Status: Former smoker Tobacco Type: Cigarettes Second Hand Exposure: No; Do You Dip or Chew Tobacco: No; Hx Alcohol Use: No Hx Substance Use: No Preferred Language: Kenyan Communication Ability: Effective Double End Sewer Required: No Beliefs That Will Affect Care: None Current Living Situation: Spouse Current Living Situation Comment: lives at home with Feels Safe at Home: Yes Assistive Devices: Lift Chair and Walker Review of Systems Review of Systems: All systems reviewed & are unremarkable except as noted in HPI & below Physical Exam Constitutional: WD/WN, vitals as above Eyes: PERRL, conjunctivae normal, anicteric sclerae Neck: trachea midline, no thyromegaly Respiratory: + cough, + tachypneic and + prolonged ex piratory phase; no respiratory distress Cardiovascular: RRR, no murmur, no edema Skin: no rashes, warm and dry Neurologic: PERRL, EOMI, accommodation nl, no face palsy, no dysarthria Psychiatric: A+Ox3, euthymic affect Results & Data Vital Signs (Past 12 Hours) Vital Signs Temp Pulse Resp BP BP Pulse Ox O2 Del Method 03/17/25 12:08 80 116/53 L 97 Nasal Cannula 03/17/25 11:14 94 Nasal Cannula 03/17/25 11:13 80 L Room Air 03/17/25 09:43 91 Room Air 03/17/25 08:30 Nasal Cannula 03/17/25 07:50 36.7 C 72 18 101/50 L 97 Room Air O2 Flow Rate 03/17/25 12:08 2 03/17/25 11:14 2 03/17/25 11:13 03/17/25 09:43 03/17/25 08:30 2 03/17/25 07:50 Laboratory Results Abnormal lab results 03/17/25 Range/Units 08:03 RBC 2.55 L (4.70-6.10) M/uL Hgb 8.7 L (14.0-18.0) g/dl Hct 26.6 L (42.0-52.0) % MCV 104.3 H (80.0-100.0) fL MCH 34.1 H (25.0-34.0) pg RDW Std Deviation 64.3 H (36.4-46.3) fL RDW Coeff of Irene 16.9 H (11.5-14.5) % Plt Count 93 L (130-400) K/uL Sodium 133 L (136-145) mmol/L Creatinine 0.58 L (0.6-1.4) mg/dl BUN/Creatinine Ratio 25.9 H (10-20) Glucose 107 H (70-99(Fasting)) mg/dl Calcium 8.4 L (8.6-10.3) mg/dl Magnesium 1.6 L (1.7-2.4) mg/dl Diagnostic Findings Hip/Pelvis X-Ray 03/02/25 16:01 Clinical History: Pain after fall 3 views of the pelvis and right hip are submitted for review. Findings: There is an acute comminuted intertrochanteric fracture of the right femoral neck, with mild displacement and angulation of fracture fragments. No subluxation or dislocation is seen. No significant arthritic changes are noted. No other osseous abnormality is identified. There are no radiopaque foreign bodies. Impression: Acute fracture of the right femoral neck ACT 112: Positive. There are findings on this exam that require communication between the performing entity and the patient following Patient Test Result Information Act ([place] ACT 112) guidelines. Electronically signed by Vamsi Olivera 03-02-2025 5:[address] 03/02/25 18:55 CT of the chest without contrast Technique: Noncontrast axial images of the chest. Coronal and sagittal reformatted images made available for review No comparison Findings: Gynecomastia. Exam limited secondary to lack of IV contrast. Left chest wall dual-lead intracardiac device. Diffuse right greater than left apical predominant bullous emphysematous change. Linear atelectasis in the lung bases. Traction bronchiectasis in the left lower lobe. Trace right pleural effusion. Limited evaluation the upper abdomen demonstrates hepatic cirrhosis with splenomegaly. Impression Gynecomastia likely secondary to liver dysfunction. Hepatic cirrhosis with splenomegaly incompletely evaluated on this exam No acute pulmonary pathology. Electronically signed by Ryder Guerra 03-02-2025 8:47 PM Hip X-Ray 03/03/25 00:00 INTRAOPERATIVE RADIOGRAPHS CLINICAL HISTORY: Open reduction and internal fixation of the right proximal fe mur. Fluoro time: 103 seconds Ka,r: 34.74 mGy FINDINGS: 4 spot fluoroscopic views of the right femur are correlated with radiographs dated 03/02/2025. There has been intertrochanteric and intramedullary nail fixation of a comminuted intertrochanteric fracture of the right proximal femur with scientology of near-anatomic alignment. A single cortical lag screw transfixes the distal end of the intramedullary nail. There is persistent medial displacement of the lesser trochanter. The orthopedic hardware appears intact. IMPRESSION: Intraoperative images from open reduction and internal fixation of the right proximal femur. Electronically signed by: Kaushal Griffiths M.D. 03/04/2025 7:[address] 03/07/25 12:35 CT OF THE ABDOMEN WITH AND WITHOUT CONTRAST LIVER PROTOCOL CLINICAL HISTORY: cirrhosis, copious liver lesions CT '23, ?lymphoma COMPARISON STUDY: CT of the abdomen and pelvis September 16, 2022. TECHNIQUE: Unenhanced, arterial and venous phase imaging of the abdomen was performed. Intravenous injection of 92 cc of Optiray 320 IV was uneventful. A dose lowering technique was utilized adhering to the principles of ALARA. FINDINGS: Cardiomegaly, pacer leads, small bilateral pleural effusions, interstitial pulmonary edema and gynecomastia within the lower chest are incidentally noted. Is no pneumatosis, free air or portal venous gas within the abdomen. As before, the liver is cirrhotic. Lateral segment and caudate hypertrophy with right hepatic lobe atrophy is again noted. This exam is compromised by suboptimal opacification and artifact. Several lateral segment hepatic lesions are noted. Overall, the number of hepatic hepatic lesions has decreased since CT of September 16, 2022. 2 lateral segment lesions persist. These are best depicted on the unenhanced portion of this exam and are hyperdense. The largest is a 2.8 cm lesion on image 17 of 57. This measured 2.[address] of September 16, 2022. There is an additional 2.5 cm lateral segment lesion. Characterization is difficult on this examination however these demonstrate minimal enhancement without washout. Moderate splenomegaly has mildly increased. Upper abdominal collaterals are noted including a splenorenal shunt. There is body wall edema. Adrenal glands, kidneys and pancreas are unremarkable. There is no hydronephrosis. There is no pancreatic ductal di latation. Caliber and wall thickness of visualized small and large bowel are normal. L2 compression fracture with severe loss of vertebral body height and mild retropulsion is noted.. Body height loss has increased since radiographs of January 20, 2024. IMPRESSION: 1. Cirrhotic liver with manifestations of portal hypertension including splenomegaly and varices formation. 2. Overall, decrease in conspicuity of hepatic lesions since CT of September 16, 2022. Two lateral segment lesions, as described above, likely decreased since prior CT although characterization is difficult on this exam. These remain pathologically indeterminate and continued imaging follow-up is recommended. If interval treatment, the findings suggest a treatment response. If no interval treatment, the apparent lesions on prior study may have reflected regenerative nodules. 3. Cardiomegaly with evidence for pulmonary edema and small bilateral pleural effusions. ACT 112: Negative or not required by law. Electronically signed by: Boris Kraus M.D. 03/07/2025 3:50 PM Abdomen Ultrasound 03/10/25 10:04 LIMITED ABDOMINAL ULTRASOUND INDICATION: Paracentesis requested FINDINGS: Ultrasound imaging in all 4 abdominal quadrants was performed. No ascites was identified. No paracentesis was performed. IMPRESSION: No ascites noted to perform paracentesis. Performed, dictated, and signed by Raul Norris PA-C; to be co-signed by Dr. Boris Kraus. Electronically signed by: Boris Kraus M.D. 03/10/2025 2:48 PM Femur X-Ray 03/13/25 12:27 XR femur RT 2V routine CLINICAL HISTORY: 10 days s/p ORIF R femur fx COMPARISON: 03/03/2025 FINDINGS: Right femoral gamma nail shows no hardware complication. There is stable alignment at the proximal femur fracture. Skin karthik remain. IMPRESSION: Stable alignment. ACT 112: Negative or not required by law. Electronically signed by: Ian Roldan M.D. 03/13/2025 2:02 PM Chest X-Ray 03/15/25 13:39 XR chest 1V portable CLINICAL HISTORY: pulm edema/dyspnea COMPARISON STUDY: 03/02/2025 FINDINGS: Stable pacemaker. Stable cardiomegaly with pulmonary vascular congestion. Stable diffuse interstitial pulmonary opacities. No pleural effusion or pneumothorax. Stable emphysema. IMPRESSION: CHF and emphysema. ACT 112: Negative or not required by law. Electronically signed by: Ian Roldan M.D. 03/15/2025 2:05 PM Venous Doppler Study 03/15/25 13:39 US venous doppler LE RT HISTORY: 84 years-old Male recent R hip surgery, severe edema; ?DVT COMPARISON: 03/14/2024 TECHNIQUE: Multiple real-time sonographic images of the right lower extremity deep venous structures were obtained assessing grayscale appearance, color and spectral flow. FINDINGS: Normal flow, compressibility, phasicity and augmentation. IMPRESSION: No sonographic evidence of deep venous thrombosis. ACT 112: Negative or not required by law. The above report was generated using voice recognition software. It may contain grammatical, syntax or spelling errors. Electronically signed by: Miguel Angel Harris M.D. 03/15/2025 3:15 PM Medications Administered Current Inpatient Medications Hydrocodone Bitart/Acetaminophen (Hydrocodone/Acetamophen 5/325mg Tab) 1 tab PO Q6H PRN PRN Reason: mild/moderate pain Stop: 03/20/25 12:11 Last Admin: 03/15/25 10:27 Dose: 1 tab Albuterol (Albuterol Hfa 8 Gm Inhaler) 2 puffs INH QIDR PRN PRN Reason: Shortness Of Breath Or Wheezing Stop: 04/03/25 06:59 Last Admin: 03/11/25 18:30 Dose: 2 puffs Albuterol (Albut/Ipratrop 3mg/0.5mg Neb 3 Ml Vial) 3 ml NEB Q6R PRN; Protocol PRN Reason: Wheezing Stop: 04/08/25 18:59 Aspirin (Aspirin 81 Mg Ectab) 81 mg PO BID [facility] Stop: 04/15/25 08:59 Last Admin: 03/17/25 08:51 Dose: 81 mg Calcium Carbonate (Calcium Carbonate 500 Mg Chewable Tab) 500 mg PO TID YOHANNES Stop: 04/03/25 13:59 Last Admin: 03/17/25 15:05 Dose: Not Given Fluticasone/Vilanterol (Fluticasone/Vilanterol 100/25mcg 14 Puffs/Inhaler) 1 puffs INH DAILY YOHANNES Stop: 04/15/25 08:59 Last Admin: 03/17/25 08:50 Dose: 1 puffs Furosemide (Furosemide 40 Mg Tab) 40 mg PO QAM [facility] Stop: 04/08/25 08:59 Last Admin: 03/15/25 08:01 Dose: 40 mg Lactulose (Lactulose Syrup 20 Gm/30 Ml Udc) 30 gm PO BID [facility] Stop: 04/13/25 09:14 Last Admin: 03/17/25 08:52 Dose: 30 gm Midodrine (Midodrine Hcl 2.5 Mg Tab) 5 mg PO TID@0800,1200,1700 YOHANNES Stop: 04/06/25 11:59 Last Admin: 03/17/25 12:10 Dose: 5 mg Pantoprazole Sodium (Pantoprazole 40 Mg Tab) 40 mg PO BID YOHANNES Stop: 04/15/25 08:59 Last Admin: 03/17/25 08:51 Dose: 40 mg Spironolactone (Spironolactone 100 Mg Tab) 100 mg PO QAM [facility] Stop: 04/08/25 08:59 Last Admin: 03/17/25 08:51 Dose: 100 mg Umeclidinium [place] (Umeclidinium [place] 62.5mcg/Blister 7 Puffs/Inhaler) 1 puffs INH QAM [facility] Stop: 04/15/25 08:59 Last Admin: 03/17/25 08:54 Dose: 1 puffs Vitamin D (Cholecalciferol 10 Mcg (400 Units) Tab) 10 mcg PO QAM [facility] Stop: 04/04/25 08:59 Last Admin: 03/17/25 08:53 Dose: 10 mcg PG Care Time/CCT Total # of Minutes Spent Total Time Spent with Patient: Total time spent is greater than 50% in coordination of care (as documented) at patient's floor/unit and/or counseling patient: Advanced Care Planning 80127 Advanced Care Planning 30 [place] [address] IN/OBS CONSULT LVL 3,45M Patient Type New Medical Decision Making Low Complexity Diagnoses Palliative care by specialist Z51.5 Discussion about advance care planning held with family member Z71.0 Counseling regarding advanced directives and goals of care Z71.89 Additional Codes Advanced Care Planning - 81217 Advanced Care Planning 30 Min: 24949 Advanced Care Planning 30 Min ([id number])
--- NOTE | 2025-03-17 18:11 | Hospitalist Progress Note ---
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 #age-related osteoporotic right femoral neck fracture - -s/p closed reduction with troch nail on 03/[address] Hernández, [facility] -25-OH Vitamin D level - 36 -PT/OT has been limited by right hip pain, severe deconditioning, dyspnea, etc. - but making some progress -rehab potential may be limited by his advanced cirrhosis, cardiopulmonary statu s, etc. -norco prn mild/mod pain especially before ambulation & PT/OT sessions -IV dilaudid prn for severe pain #ALINE - resolved - -peak Cr 1.77 -admission Cr 0.74 -Cr today 0.66 -BMP am #hypotension - resolved - -2nd to acute blood loss anemia in the setting of advanced cirrhosis -s/p PRBCs, IV fluids, albumin IV -continue midodrine 10mg TID #cirrhosis - decompensated/advanced - -2nd to h/o etoh abuse? -advanced; previous CT a/p in 2022 with esophageal varices, splenomegaly, etc. -CT with similar findings this admission -still markedly decompensated with pulmonary edema/anasarca -typically takes 80mg of PO lasix at home -cont aldactone 100mg qam -cont 2 gram salt restricted diet -gave 40mg of IV lasix this am -will try 1mg of IV bumex this afternoon; perhaps bumex will be more effective than lasix -due to previous liver lesions in [address] liver w/ and w/o contrast -liver lesions are less in # and smaller -this would argue against cancerous process but not entirely ruled out -if pt's BPs stabilize should consider low-dose propranolol or nadalol for portal HTN but cont to hold off at this time #hepatic encephalopathy - improved - -cont lactulose 30gm BID -aim for 3 BMs/day at minimum #acute blood loss anemia - -2nd to right hip fracture, perioperative blood loss, frequent phlebotomy, etc. -cannot rule out GI losses but no report of melena/BRBPR -admit hemoglobin 12.9 -he is s/p 1 unit of PRBCs earlier this admission -recheck CBC in 48 hours #pancytopenia - -likely 2nd to advanced cirrhosis -also, in 2022, flow cytometry suggested he had B cell lymphoma - but he never had f/u for such -checked TSH, B12, folate - all wnl -serial CBC -transfuse as needed -CT chest/a/p - no pathological lymphadenopathy seen #acute post-op pulmonary insufficiency - -2nd to pulmonary edema -cont to diurese -underlying COPD could be contributing as well -while awake sats are in the low 90s now in room air #Chronic Dyspnea/Emphysema - -2nd to COPD -added Breo 1 puff daily -added Incruse Ellipta 1 puff daily -diurese -wean O2 as tolerated -recheck CXR in am tomorrow #Venous insufficiency - -cont diuretics -checked doppler (venous) of RLE - neg for DVT #s/p cardiac pacemaker - -placed for high-degree AV block -follows with [facility] -Insights device #Thrombocytopenia - -Likely due to cirrhosis/hypersplenism -Baseline platelet count 50-70 -bottomed in the 40s and had continued to improve daily -recheck CBC 48 hours for stability #B-cell lymphoma - suspected - -s/p liver biopsy (numerous liver lesions on CT 2022) - B cells noted on that biopsy but no conclusive -s/p flow cytometry in 2022 -- that was highly suggestive of B-Cell lymphoma -however, never had follow-up with oncology for this issue following 2022 admission #DVT proph - -he does have varices, but he is at HIGH risk of VTE as he is essentially bed- bound right now -CAUTIOUSLY started aspirin 81mg BID; added PPI twice daily for GI prophy -follow CBCs carefully updated at bedside again today prognosis is guarded in light of advanced cirrhosis, COPD, and ?underlying lymphoma palliative care consult appreciated patient and his spouse are not ready to pursue comfort-based approach; he is hoping to rehab then ultimately land home with his but that goal will be very hard Admission and Anticipated Discharge Date Admission Date: March 02, 2025 Subjective no events still very dyspneic with any activity right hip pain at rest is controlled at bedside no new complaints today eating has improved while here Review of Systems Review of Systems: gen - weak, fatigue, sleeping a lot during the day cv - no cp, no orthopnea pulm - dyspnea with any activity GI - no N/V skin - "feels itchy" especially over right thigh dressings Physical Exam Physical Exam: gen - awake/alert, NAD neck - JVD+ mouth - MMM heart - RRR, s1 s2, 2/6 systolic murmur LSB lungs - b/l basilar crackles still present; no wheezes today abd - soft, NT; BS+; no caput medosa; spleen palpable ext - right leg with mod edema R thigh 2+; [place]/ankle on right 1+ edema; 1+ edema LLE; pulses b/l feet 2+ - scrotal edema resolved skin - dressings intact Right lateral thigh; ecchymoses in the right groin region Results & Data Results & Data Vital Signs (Past 12 Hours) Vital Signs Temp Pulse Resp BP BP Pulse Ox O2 Del Method 03/17/25 15:58 36.7 C 77 16 92/44 L 93 Nasal Cannula 03/17/25 12:08 80 116/53 L 97 Nasal Cannula 03/17/25 11:14 94 Nasal Cannula 03/17/25 11:13 80 L Room Air 03/17/25 09:43 91 Room Air 03/17/25 08:30 Nasal Cannula 03/17/25 07:50 36.7 C 72 18 101/50 L 97 Room Air O2 Flow Rate 03/17/25 15:58 2 03/17/25 12:08 2 03/17/25 11:14 2 03/17/25 11:13 03/17/25 09:43 03/17/25 08:30 2 03/17/25 07:50 Laboratory Results Laboratory Results - last 24 hr 03/18/25 06:48 Sodium 131 L Potassium 4.5 Chloride 100 Carbon Dioxide 26 Anion Gap 5 BUN 19 Creatinine 0.66 Est Cr Clr Drug Dosing 104.9 eGFR 93.65 BUN/Creatinine Ratio 28.8 H Glucose 107 H Calcium 8.3 L Magnesium 1.8 PG Care Time/CCT Total # of Minutes Spent Total Time Spent with Patient: Total time spent is greater than 50% in coordination of care (as documented) at patient's floor/unit and/or counseling patient: Coding Level of Care Code 99026 SUB INP/OBS CARE 2/35MIN Diagnoses Age-related osteoporosis with current pathological fracture, right femur, subsequent encounter for fracture with routine healing M80.051D Pancytopenia D61.818 ALINE (acute kidney injury) N17.9 Age related osteoporosis, unspecified pathological fracture presence M81.0 Osteoporosis type: age-related Presence of current pathological fracture: unspecified Acute postoperative pulmonary insufficiency J95.2 Anasarca R60.1 Decompensated hepatic cirrhosis K72.90; K74.60 Status cardiac pacemaker Z95.0 Acute blood loss anemia D62 B-cell lymphoma C85.10 Hepatic encephalopathy K76.82 (4) Osteoporosis Osteoporosis type: age-related Presence of current pathological fracture: unspecified Qualified Code(s): M81.0 - Age-related osteoporosis without current pathological fracture
[2025-03-17] MEDS: MIDODRINE HCL 2.5 MG TAB PO STA (18:46)
[2025-03-18 07:43] LABS: Anion Gap 5.0 (3-11); Blood Urea Nitrogen 19.0 mg/dl (6-23); Calcium 8.3 mg/dl (8.6-10.3); Carbon Dioxide 26.0 mmol/L (21-32); Chloride 100.0 mmol/L (98-107); Creatinine Clr Calc Pharmacy 104.9 ml/min; Glucose 107.0 mg/dl (70-99(Fasting)); Magnesium 1.8 mg/dl (1.7-2.4); Potassium 4.5 mmol/L (3.5-5.1); Sodium 131.0 mmol/L (136-145)
[2025-03-18] MEDS: MIDODRINE HCL 10 MG TAB PO SCH (09:11)
[2025-03-18] MEDS: FUROSEMIDE 40 MG/4 ML VIAL IV ONE (09:24)
[2025-03-18] MEDS: BUMETANIDE 1 MG in SYRINGE 0 ML IV ONE (17:41)
--- NOTE | 2025-03-19 08:36 | XRay Report ---
Technique: A frontal view of the chest was obtained Comparison is made to the prior examination dated 03/15/2025 Findings: There are slightly worsened diffuse interstitial opacities, concerning for pulmonary edema. The heart is mildly enlarged. No pleural effusion or pneumothorax is seen. No fracture is noted. There is a left chest wall pacemaker device Impression: Cardiomegaly and pulmonary edema Electronically signed by Vamsi Olivera 03-19-2025 08:35 AM
[2025-03-19 09:04] LABS: Hematocrit (blood only) 26.9 % (42.0-52.0); Hemoglobin 8.8 g/dl (14.0-18.0); Mean Corpuscular Hemoglobin 34.0 pg (25.0-34.0); Mean Corpuscular Volume 103.9 fL (80.0-100.0); Platelet Count 94 K/uL (130-400); RDW Standard Deviation 63.9 fL (36.4-46.3); Red Blood Count 2.59 M/uL (4.70-6.10); White Blood Count 3.58 K/ul (4.8-10.8)
[2025-03-19 09:13] LABS: Anion Gap 6.0 (3-11); Blood Urea Nitrogen 21.0 mg/dl (6-23); Calcium 8.4 mg/dl (8.6-10.3); Carbon Dioxide 26.0 mmol/L (21-32); Chloride 101.0 mmol/L (98-107); Creatinine Clr Calc Pharmacy 108.2 ml/min; Glucose 109.0 mg/dl (70-99(Fasting)); Potassium 4.4 mmol/L (3.5-5.1); Sodium 133.0 mmol/L (136-145)
[2025-03-19] MEDS: LORATADINE 10 MG TAB PO SCH (09:19)
[2025-03-19] MEDS: MAGNESIUM CHLORIDE W/CALCIUM 64MG DELAYED REL TAB PO SCH (10:21)
[2025-03-19] MEDS: BUMETANIDE 1 MG in SYRINGE 0 ML IV SCH (10:21)
--- NOTE | 2025-03-19 18:28 | Hospitalist Progress Note ---
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 #acute post-op pulmonary insufficiency - -has never recovered from this -2nd to pulmonary edema, COPD, ??aspiration events?? -despite 20+ liters negative his cxr and exam are c/w ongoing pulm edema -cont to diurese - 1mg bumex BID, aldactone 100 qam -today I noted he was significantly more dyspneic after he drank fluids from straw - concerning for aspiration -will involve speech therapy tomorrow for swallow eval #age-related osteoporotic right femoral neck fracture - -s/p closed reduction with troch nail on 03/[address] Hernández, [facility] -25-OH Vitamin D level - 36 -PT/OT has been significantly limited by right hip pain, severe deconditioning, severe dyspnea, etc. -unable to get from bed to chair, and sleeping alot -rehab potential likely significantly limited by his advanced cirrhosis, cardiopulmonary status, etc. -norco prn mild/mod pain especially before ambulation & PT/OT sessions -IV dilaudid prn for severe pain #ALINE - resolved - -peak Cr 1.77 -admission Cr 0.74 -Cr today 0.6 -BMP am #hypotension - resolved - -2nd to acute blood loss anemia in the setting of advanced cirrhosis -s/p PRBCs, IV fluids, albumin IV -continue midodrine 10mg TID #cirrhosis - decompensated/advanced - -2nd to h/o etoh abuse? -advanced; previous CT a/p in 2022 with esophageal varices, splenomegaly, etc. -CT with similar findings this admission -still markedly decompensated with pulmonary edema/anasarca -typically takes 80mg of PO lasix at home -cont aldactone 100mg qam -cont 2 gram salt restricted diet -cont 1mg of IV bumex BID -due to previous liver lesions in [address] liver w/ and w/o contrast -liver lesions are less in # and smaller -this would argue against cancerous process but not entirely ruled out #hepatic encephalopathy - had improved but sleeping more & with asterixis again today - worse - -cont lactulose 30gm daily (refusing 2nd dose later in day) -thus add rifaximin BID #acute blood loss anemia - -2nd to right hip fracture, perioperative blood loss, frequent phlebotomy, etc. -cannot rule out GI losses but no report of melena/BRBPR -admit hemoglobin 12.9 -he is s/p 1 unit of PRBCs earlier this admission -CBC acceptable today #pancytopenia - -likely 2nd to advanced cirrhosis/splenomegaly -also, in 2022, flow cytometry suggested he had B cell lymphoma - but he never had f/u for such -checked TSH, B12, folate - all wnl -transfuse prn -CT chest/a/p - no pathological lymphadenopathy seen #Chronic Dyspnea/Emphysema - -2nd to COPD -added Breo 1 puff daily -added Incruse Ellipta 1 puff daily -diurese -wean O2 as tolerated but having trouble doing so -chest x-ray with ongoing b/l infiltrates #Venous insufficiency - -cont diuretics -checked doppler (venous) of RLE - neg for DVT #s/p cardiac pacemaker - -placed for high-degree AV block -follows with [facility] -Trivedi device #Thrombocytopenia - -Likely due to cirrhosis/hypersplenism -Baseline platelet count 50-70 -bottomed in the 40s and has continued to improve daily #B-cell lymphoma - suspected - -s/p liver biopsy (numerous liver lesions on CT 2022) - B cells noted on that biopsy but no conclusive -s/p flow cytometry in 2022 -- that was highly suggestive of B-Cell lymphoma -however, never had follow-up with oncology for this issue following 2022 admission #DVT proph - -he does have varices, but he is at HIGH risk of VTE as he is essentially bed- bound right now -CAUTIOUSLY started aspirin 81mg BID; added PPI twice daily for GI prophy updated at bedside again today asked that we have a family meeting with son involved this week; shooting for Thursday prognosis is very poor/guarded in light of advanced cirrhosis, COPD, ?underlying lymphoma - in the setting of failure to thrive/right hip fracture/lack of improvement palliative care consult appreciated Admission and Anticipated Discharge Date Admission Date: March 02, 2025 Subjective still very short of breath with any movement we also noted (myself & nursing staff) that when he was drinking fluids he would become dyspneic after taking sips, and had mild cough following those sips staff made me aware that he is refusing the pm dose of lactulose - only taking am dose having only 1 bm/day cont with R hip pain cont with mild confusion Review of Systems Review of Systems: cv - no cp; ongoing edema pulm - mild cough, dyspnea even at rest and with moving in bed GI - no N/V Physical Exam Physical Exam: gen - awake/alert, NAD, mildly confused; dyspneic and tachypneic with any movement and after drinking fluids from straw neck - JVD+ to nearly the jaw line mouth - MMM heart - RRR, s1 s2, 2/6 systolic murmur LSB lungs - b/l basilar crackles still present - no change from yesterday's exam; mild scattered wheezes b; abd - soft, NT; BS+; no caput medosa; spleen palpable ext - right leg with mod edema R thigh 2+; [place]/ankle on right 1+ edema; 1+ edema LLE; pulses b/l feet 2+ - scrotal edema resolved; waldrop in place skin - dressings intact Right lateral thigh; ecchymoses in the right groin region resolving neuro - ongoing asterixis Results & Data Results & Data Vital Signs (Past 12 Hours) Vital Signs Temp Pulse Pulse Resp BP Pulse Ox O2 Del Method 03/19/25 17:39 37.1 C 03/19/25 17:36 83 16 91 Room Air 03/19/25 14:06 37 C 73 18 120/57 L 95 Room Air 03/19/25 09:00 Nasal Cannula 03/19/25 07:39 36.8 C 73 18 106/56 L 96 Nasal Cannula O2 Flow Rate 03/19/25 17:39 03/19/25 17:36 03/19/25 14:06 03/19/25 09:00 2 03/19/25 07:39 3 Laboratory Results Laboratory Results - last 24 hr 03/19/25 03/19/25 07:35 Unknown WBC 3.58 L RBC 2.59 L Hgb 8.8 L Hct 26.9 L MCV 103.9 H MCH 34.0 MCHC 32.7 RDW Std Deviation 63.9 H RDW Coeff of Irene 16.8 H Plt Count 94 L MPV 9.9 Immature Gran % (Auto) Neut % (Auto) Lymph % (Auto) Cassia % (Auto) Eos % (Auto) Baso % (Auto) Neut # (Auto) Lymph # (Auto) Cassia # (Auto) Eos # (Auto) Baso # (Auto) Immature Gran # (Auto) Sodium 133 L Potassium 4.4 Chloride 101 Carbon Dioxide 26 Anion Gap 6 BUN 21 Creatinine 0.64 Est Cr Clr Drug Dosing 108.2 eGFR 94.52 BUN/Creatinine Ratio 32.8 H Glucose 109 H Calcium 8.4 L Magnesium 1.7 SARS-CoV-2 (PCR) NEGATIVE Influenza Type A (PCR) Negative Influenza Type B (PCR) Negative RSV (RT-PCR) Negative Diagnostic Findings Chest X-Ray 03/19/25 07:30 Technique: A frontal view of the chest was obtained Comparison is made to the prior examination dated 03/15/2025 Findings: There are slightly worsened diffuse interstitial opacities, concerning for pulmonary edema. The heart is mildly enlarged. No pleural effusion or pneumothorax is seen. No fracture is noted. There is a left chest wall pacemaker device Impression: Cardiomegaly and pulmonary edema Electronically signed by Vamsi Olivera 03-19-2025 08:35 AM PG Care Time/CCT Total # of Minutes Spent Total Time Spent with Patient: Total time spent is greater than 50% in coordination of care (as documented) at patient's floor/unit and/or counseling patient: Coding Level of Care Code 65654 SUB INP/OBS CARE 3/50MIN Diagnoses Age-related osteoporosis with current pathological fracture, right femur, subsequent encounter for fracture with routine healing M80.051D Pancytopenia D61.818 ALINE (acute kidney injury) N17.9 Age related osteoporosis, unspecified pathological fracture presence M81.0 Osteoporosis type: age-related Presence of current pathological fracture: unspecified Acute postoperative pulmonary insufficiency J95.2 Anasarca R60.1 Decompensated hepatic cirrhosis K72.90; K74.60 Status cardiac pacemaker Z95.0 Acute blood loss anemia D62 B-cell lymphoma C85.10 Hepatic encephalopathy K76.82 (4) Osteoporosis Osteoporosis type: age-related Presence of current pathological fracture: unspecified Qualified Code(s): M81.0 - Age-related osteoporosis without current pathological fracture
[2025-03-19 19:24] LABS: Influenza A virus by PCR Negative (Neg); Influenza B virus by PCR Negative (Neg); SARS CoV2 RNA(COVID-19) Ceph NEGATIVE (Negative)
[2025-03-20 07:35] LABS: Hematocrit (blood only) 27.1 % (42.0-52.0); Hemoglobin 9.2 g/dl (14.0-18.0); Immature Granulocytes # (auto) 0.02 K/uL (0.01-0.20); Immature Granulocytes % (auto) 0.6 %; Mean Corpuscular Hemoglobin 34.7 pg (25.0-34.0); Mean Corpuscular Volume 102.3 fL (80.0-100.0); Platelet Count 98 K/uL (130-400); RDW Standard Deviation 63.4 fL (36.4-46.3); Red Blood Count 2.65 M/uL (4.70-6.10); White Blood Count 3.62 K/ul (4.8-10.8)
[2025-03-20 07:50] LABS: Anion Gap 6.0 (3-11); Blood Urea Nitrogen 21.0 mg/dl (6-23); Calcium 8.4 mg/dl (8.6-10.3); Carbon Dioxide 26.0 mmol/L (21-32); Chloride 102.0 mmol/L (98-107); Creatinine Clr Calc Pharmacy 108.2 ml/min; Glucose 104.0 mg/dl (70-99(Fasting)); Potassium 4.4 mmol/L (3.5-5.1); Sodium 134.0 mmol/L (136-145)
[2025-03-20] MEDS: LACTULOSE SYRUP 20 GM/30 ML UDC PO SCH (09:13)
--- NOTE | 2025-03-20 09:34 | Orthopedic Progress Note ---
Date of Service March 20, 2025 Assessment & Plan (1) Closed fracture of neck of right femur: Plan: Postop day 16 status post ORIF right hip with Dr. Hernández 03/03 Patient's dressings were taken down today and the sutures were removed. Steri- Strips were applied. These can stay on for 7 to 10 days. May reapply Steri- Strips if they fall off prior to that timeframe. He had 1 small blister that still had not popped over the middle superior to his incision. Communicated with the nurse that this can be covered with ABD or dry dressing and tape over top. Recommend continuing PT and OT. Encourage out of bed to chair. He is weightbearing as tolerated with a walker and max assist, high risk for falls. Encouraged him while he is laying in bed that he can do ankle pumps and quad sets DVT prophylaxis and pain control per primary team. Currently not on any DVT prophylaxis due to medical comorbidities. NEVAEH stockings when edema allows. Patient with ongoing medical problems currently being addressed - Palliative care was consulted A 4-week from now appointment has been scheduled and listed in discharge tab. With Dr. Hernández, x-rays at that visit. Admission and Anticipated Discharge Date Admission Date: March 02, 2025 Subjective Pt was seen and examined bedside. He says overall he is "not too bad" this morning. Says that his hip was painful, but it has not changed since the surgery. He says he was not out of bed this weekend. Physical Exam Physical Exam: Patient was sitting up sleeping upon entering the room. He was able to be aroused. His oxygen was on his forehead and I just said this was in his nose. His dressings were taken down. No significant saturation. Some saturation from blister that apparently popped. He has some edema and ecchymosis in his thigh. He was nontender to palpate around his incisions. There is no expressible drainage from any of the incisions. His sutures were removed today. Wound is well-approximated and healed. Steri-Strips were applied. He is able to freely wiggle his toes and pump his ankles up and down. He can bend his knee to about 10 degrees, I am able to passively bend him to about 30 degrees but he has some pain with this. Unable to do some gentle passive flexion, abduction and adduction with his hip without any significant pain. SCDs are in place. Results & Data Vital Signs (Past 12 Hours) Vital Signs Temp Pulse Resp BP Pulse Ox O2 Del Method O2 Flow Rate 03/20/25 07:38 36.9 C 74 18 107/57 L 94 Nasal Cannula 2 03/19/25 22:56 36.9 C 63 16 111/65 95 Nasal Cannula 2 Laboratory Results White blood cells 3.62 this morning stable. Hemoglobin and hematocrit 9.2/27.1. Platelets 98 (1) Closed fracture of neck of right femur Encounter type: initial encounter Qualified Code(s): S72.001A - Fracture of unspecified part of neck of right femur, initial encounter for closed fracture
--- NOTE | 2025-03-20 19:10 | Hospitalist Progress Note ---
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 #acute post-op pulmonary insufficiency - -has never recovered from this -2nd to ongoing pulmonary edema? -COPD? -speech therapy consulted and does not feel he is aspirating -despite 20+ liters negative his cxr and exam are c/w ongoing pulm edema -cont to diurese - 1mg bumex BID, aldactone 100 qam -still requiring NC o2 and exam has not changed with the copious diuresis -T 37.5 this evening...developing pneumonia? -could he have PEs? -discussed getting CTA chest tonight - agreeable -may provide more information for goals of care discussion tomorrow #age-related osteoporotic right femoral neck fracture - -s/p closed reduction with troch nail on 03/[address] Hernández, [facility] -25-OH Vitamin D level - 36 -PT/OT has been significantly limited by right hip pain, severe deconditioning, severe dyspnea, etc. -unable to get from bed to chair, and sleeping alot -rehab potential significantly limited by his advanced cirrhosis, cardiopulmonary status, failture to thrive, etc. -norco prn mild/mod pain -IV dilaudid prn for severe pain #ALINE - resolved - -peak Cr 1.77 -admission Cr 0.74 -Cr today <1 -BMP am #hypotension - resolved - -2nd to acute blood loss anemia in the setting of advanced cirrhosis -s/p PRBCs, IV fluids, albumin IV -continue midodrine 10mg TID #cirrhosis - decompensated/advanced - -2nd to h/o etoh abuse? -advanced; previous CT a/p in 2022 with esophageal varices, splenomegaly, etc. -CT with similar findings this admission -still markedly decompensated with pulmonary edema/anasarca -typically takes 80mg of PO lasix at home -cont aldactone 100mg qam -cont 2 gram salt restricted diet -cont 1mg of IV bumex BID -due to previous liver lesions in [address] liver w/ and w/o contrast -liver lesions are less in # and smaller -this would argue against cancerous process but not entirely ruled out #hepatic encephalopathy - -cont lactulose 30gm daily (refusing 2nd dose later in day) -cont rifaximin BID -recheck ammonia level am #acute blood loss anemia - -2nd to right hip fracture, perioperative blood loss, frequent phlebotomy, etc. -cannot rule out GI losses but no report of melena/BRBPR -admit hemoglobin 12.9 -he is s/p 1 unit of PRBCs earlier this admission -CBC acceptable today #pancytopenia - -likely 2nd to advanced cirrhosis/splenomegaly -also, in 2022, flow cytometry suggested he had B cell lymphoma - but he never had f/u for such -checked TSH, B12, folate - all wnl -CT chest/a/p - no pathological lymphadenopathy seen #Chronic Dyspnea/Emphysema - -2nd to COPD -cont Breo 1 puff daily -cont Incruse Ellipta 1 puff daily -cont to diurese -cont NC o2 -obtain chest CTA as noted above #Venous insufficiency - -cont diuretics -checked doppler (venous) of RLE - neg for DVT #s/p cardiac pacemaker - -placed for high-degree AV block -follows with [facility] -Trivedi device #Thrombocytopenia - -Due to cirrhosis/hypersplenism -Baseline platelet count 50-70 -bottomed in the 40s and has continued to improve daily #B-cell lymphoma - suspected - -s/p liver biopsy (numerous liver lesions on CT 2022) - B cells noted on that biopsy but not conclusive -s/p flow cytometry in 2022 -- that was highly suggestive of B-Cell lymphoma -however, never had follow-up with oncology for this issue following 2022 admission -in light of the other more pressing issues not plans to pursue any w/u while here #DVT proph - -aspirin 81mg BID; added PPI twice daily for GI prophy updated at bedside again today family meeting planned for 8-19-25 at 0800 Ms Vallejo from palliative to attend as well to discuss goals of care Admission and Anticipated Discharge Date Admission Date: March 02, 2025 Subjective pt w/ poor appetite today incontinent of stool at bedside - she has not noted any dyspnea today he is confused, and has been sleepy at times confirms her son will be here tomorrow morning at 8 to discuss goals of care still requiring NC O2 despite copious diuresis Review of Systems Review of Systems: CV - no cp pulm - no cough GI - no N/V musculo - R hip pain Physical Exam Physical Exam: gen - awake, mildly confused neck - JVD+ heart - RRR, s1 s2, 2/6 systolic murmur LSB lungs - b/l basilar crackles - again no change from yesterday's exam abd - soft, NT; BS+; ND ext - right leg with mild edema R thigh 1+; [place]/ankle on right <1+ edema; trace edema LLE; pulses b/l feet 2+ - scrotal edema resolved; waldrop in place skin - dressings intact Right lateral thigh neuro - ongoing asterixis Results & Data Results & Data Vital Signs (Past 12 Hours) Vital Signs Temp Pulse Resp BP BP Pulse Ox O2 Del Method 03/20/25 15:06 93 Nasal Cannula 03/20/25 15:03 37.5 C 79 20 118/63 89 L Room Air 03/20/25 12:58 74 16 114/56 L 93 Room Air 03/20/25 11:18 71 92 Room Air 03/20/25 08:30 Nasal Cannula 03/20/25 07:38 36.9 C 74 18 107/57 L 94 Nasal Cannula O2 Flow Rate 03/20/25 15:06 1 03/20/25 15:03 03/20/25 12:58 03/20/25 11:18 03/20/25 08:30 2 03/20/25 07:38 2 Laboratory Results Laboratory Results - last 24 hr 03/19/25 03/20/25 Unknown 07:07 WBC 3.62 L RBC 2.65 L Hgb 9.2 L Hct 27.1 L MCV 102.3 H MCH 34.7 H MCHC 33.9 RDW Std Deviation 63.4 H RDW Coeff of Irene 16.9 H Plt Count 98 L MPV 9.8 Immature Gran % (Auto) 0.6 Neut % (Auto) 67.1 Lymph % (Auto) 16.0 [place] % (Auto) 11.6 Eos % (Auto) 4.1 Baso % (Auto) 0.6 Neut # (Auto) 2.43 Lymph # (Auto) 0.58 L [place] # (Auto) 0.42 Eos # (Auto) 0.15 Baso # (Auto) 0.02 Immature Gran # (Auto) 0.02 Sodium 134 L Potassium 4.4 Chloride 102 Carbon Dioxide 26 Anion Gap 6 BUN 21 Creatinine 0.64 Est Cr Clr Drug Dosing 108.2 eGFR 94.52 BUN/Creatinine Ratio 32.8 H Glucose 104 H Calcium 8.4 L SARS-CoV-2 (PCR) NEGATIVE Influenza Type A (PCR) Negative Influenza Type B (PCR) Negative RSV (RT-PCR) Negative PG Care Time/CCT Total # of Minutes Spent Total Time Spent with Patient: Total time spent is greater than 50% in coordination of care (as documented) at patient's floor/unit and/or counseling patient: Coding Level of Care Code 86745 SUB INP/OBS CARE 3/50MIN Diagnoses Age-related osteoporosis with current pathological fracture, right femur, subsequent encounter for fracture with routine healing M80.051D Pancytopenia D61.818 ALINE (acute kidney injury) N17.9 Age related osteoporosis, unspecified pathological fracture presence M81.0 Osteoporosis type: age-related Presence of current pathological fracture: unspecified Acute postoperative pulmonary insufficiency J95.2 Anasarca R60.1 Decompensated hepatic cirrhosis K72.90; K74.60 Status cardiac pacemaker Z95.0 Acute blood loss anemia D62 B-cell lymphoma C85.10 Hepatic encephalopathy K76.82 (4) Osteoporosis Osteoporosis type: age-related Presence of current pathological fracture: unspecified Qualified Code(s): M81.0 - Age-related osteoporosis without current pathological fracture
[2025-03-20] MEDS: OPTIRAY 320 125ml IV ONE (21:20)
--- NOTE | 2025-03-21 00:46 | CT Scan Report ---
Exam(s): CTA CHEST EXAM: CT Angiography Chest With Intravenous Contrast CLINICAL HISTORY: Reason for exam: hypoxia, bedbound, dyspnea. r/o PE, CHF, etc.. TECHNIQUE: Axial computed tomographic angiography images of the chest with intravenous contrast. CTDI is 38.21 mGy and DLP is 825.23 mGy-cm. Automated exposure control was utilized for the study. A dose lowering technique was utilized adhering to the principles of ALARA. MIP reconstructed images were created and reviewed. COMPARISON: 03/02/2025 FINDINGS: Limitations: Exam somewhat limited secondary to patient respiratory motion. Pulmonary arteries: Unremarkable. No large central pulmonary embolus present on this exam. Aorta: No acute findings. No thoracic aortic aneurysm. Lungs: Unremarkable. No mass. No consolidation. Pleural space: Bilateral pleural effusions. No pneumothorax. Heart: Cardiomegaly. Mitral valve calcification. Aortic valve calcification. No significant pericardial effusion. No evidence of RV dysfunction. Bones/joints: No acute fracture. No dislocation. Soft tissues: Gynecomastia. Lymph nodes: Unremarkable. No enlarged lymph nodes. Spleen: Limited evaluation of the upper abdomen demonstrates splenomegaly and hepatic cirrhosis. Tubes, lines and devices: Left chest wall dual lead intracardiac device. IMPRESSION: Bilateral pleural effusions. Exam limited secondary to patient respiratory motion. No large central pulmonary embolus. Hepatic cirrhosis Splenomegaly Electronically signed by: Ryder Guerra MD 03/21/25 00:45 AM
[2025-03-21 07:05] VITALS: O2SAT 94
[2025-03-21 07:43] LABS: Base Excess VBG 2.8 mEq/L; HCO3 VBG 26 mmol/L; Oxygen Saturation VBG 90.9 %; PCO2 VBG 35 mmHg (38-50); PO2 VBG 57 mmHg; pH VBG 7.48 (7.36-7.41)
[2025-03-21 08:02] LABS: Anion Gap 7.0 (3-11); Blood Urea Nitrogen 21.0 mg/dl (6-23); Calcium 8.4 mg/dl (8.6-10.3); Carbon Dioxide 26.0 mmol/L (21-32); Chloride 102.0 mmol/L (98-107); Creatinine Clr Calc Pharmacy 103.4 ml/min; Glucose 106.0 mg/dl (70-99(Fasting)); Magnesium 1.8 mg/dl (1.7-2.4); Potassium 4.2 mmol/L (3.5-5.1); Sodium 135.0 mmol/L (136-145)
--- NOTE | 2025-03-21 08:11 | Palliative Family Discussion ---
Date of Service March 21, 2025 Patient Directed Conference Time of Meetin:00 - 08:45 Participants: [facility], Dr. Palacios Patient participation:no Patient Support System: pt's and adult son Other Healthcare Provider Participation: attending Dr. Palacios Meeting Location: waithing room Advanced Directive available: no If yes, descriptors: n/a The patient's surrogate medical decision maker participated: pt's and son participated in discussion Legally authorized health care proxy: n/a Other surrogate: n/a A family meeting was held for SID GERONIMO. This meeting was necessary for determining the appropriate course of treatment. Topics of Discussion Topics of Discussion: 1. pt medical history and prognosis 2. pt values/GOC 3. comfort directed care/hospice Other Content of Meetin. Opportunity given for participants to speak and ask questions. 2. Participants were assured of attention to patient comfort. 3. Reassurance provided. 4. Support was provided for informed, good-nick decisions. 5. Emotions expressed by family were acknowledged and addressed. 6. Follow-up Outpatient: n/a 7. Plan of Care: RETIREMENT MANAGER, plan for dc to SNF with hospice Met with patient's and son in waiting area for scheduled ACP discussion. Dr Palacios was present for the entirety of the discussion and shared a summary of the patients HPI, admission course, and the patient's acute and chronic medical conditions. He shared with the family that the pt's general health and deconditioning as well as cirrhosis and COPD will make gaining strength through rehab very difficult. Discussed that the pt's intermittent confusion is likely 2/2 his liver failure. Discussed his cirrhosis and emphysema as progressively debilitating and irreversible diseases. Pt's and son both shared concern that pt has not been capable of participating with PT even while here and does not appear to be gaining strength. His shared desire to "not drag things out" if we are unable to offer improvement in his underlying liver and lung diseases. His son shared concern that the treatments currently being offered are "making him miserable". Both and son questioned if hospice would be appropriate and what the prognosis would be if they were to adopt a comfort based approach to his care. Dr Palacios shared that if pt transitions to comfort directed care his life expectancy would likely be a matter of weeks. We discussed the transition to comfort care and this would involve stopping all labs/diagnostics and life prolonging therapy in favor of comfort over prolonging life. Both in agreement to transition to comfort directed care. We discussed hospice care at home vs SNF and shared concern that she would not be able to provide care necessary at home. She requests SNF placement with hospice and expressed preference for [facility] (first choice) or [facility] for ongoing hospice care. Case management made aware. Discussed changes pt may move through in the dying process including but not limited to sleeping more, disorientation when awake, restlessness, diminished senses/inability to respond to stimulus although ability to be aware of them remains intact longer, and changes in body temperatures, skin changes/mottling/cyanosis, respiratory pattern changes, and oral secretions. Family verbalized understanding and visitation was encouraged. We discussed criteria for GIP hospice and that pt does not currently fit criteria. Reassured family that whether in the hospital or at SNF, no further diagnostics or invasive, life prolonging, procedures would be done and all care would be directed towards patient comfort with the goal of to assuring a peaceful, dignified . Time Involved in Meeting: I spent 60 minutes overall addressing this case: 5 in medical data review/discussion with referring provider(s) and/or preparation for the visit 40 in direct interaction with the patient's and son 40 Advance Care Planning/Goals of Care discussions as detailed above in note (must be >16min) 10 in subsequent review and synthesis of assessment and plan 5 in communicating with other providers regarding the patient's case: ALAN ROSA, attending
[2025-03-21] MEDS ORDERED: HYOSCYAMINE SULFATE 0.125 MG TAB SL PRN (08:51)
[2025-03-21] MEDS ORDERED: ONDANSETRON INJ 2 MG/ML 2 ML VIAL IV PRN (08:51)
[2025-03-21] MEDS ORDERED: ONDANSETRON 4 MG OD TAB SL PRN (08:51)
[2025-03-21] MEDS ORDERED: ATROPINE SULFATE 1% OP SOLN 5 ML BTL SL PRN (08:51)
[2025-03-21] MEDS ORDERED: HALOPERIDOL ORAL SOLN 2 MG/ML PO PRN (08:51)
[2025-03-21] MEDS ORDERED: GLYCOPYRROLATE 0.2 MG/ML VIAL IV PRN (08:51)
--- NOTE | 2025-03-21 10:31 | Orthopedic Progress Note ---
Date of Service March 21, 2025 Assessment & Plan (1) Closed fracture of neck of right femur: Plan: Postop day 18 status post ORIF right hip with Dr. Hernández 03/03 Patient's sutures were removed yesterday. May reapply Steri-Strips if they fall off prior to that timeframe. Blister no longer present. Recommend continuing PT and OT. Encourage out of bed to chair. He is weightbearing as tolerated with a walker and max assist, high risk for falls. Encouraged him while he is laying in bed that he can do ankle pumps and quad sets DVT prophylaxis and pain control per primary team. Currently not on any DVT prophylaxis due to medical comorbidities. NEVAEH stockings when edema allows. Patient with ongoing medical problems currently being addressed - Palliative care was consulted A 4-week from now appointment has been scheduled and listed in discharge tab. With Dr. Hernández, x-rays at that visit. Admission and Anticipated Discharge Date Admission Date: March 02, 2025 Subjective This 84-year-old male seen today for follow-up of right hip fracture treatment with long trochanteric nailing. States he is doing fairly well. Patient is currently under palliative care. Son states that all of his meds are being held starting this evening. They are planning on him going to [facility] upon discharge if he does not "pass on." Patient states he is chronically short of breath and on oxygen via nasal cannula and that it worsens with any type of movement. He denies any chest pain, fever, chills, sweats, nausea, vom iting or numbness or tingling in his right lower extremity. He has been having loose stools from lactulose (now refusing this medication) and currently has a urinary catheter in place. Review of Systems Review of Systems: All systems reviewed & are unremarkable except as noted in Subjective Physical Exam Physical Exam: Right lower extremity: Surgical incision sites are closed with steri-strips in place. No fluctuance or drainage noted. Patient is unable to perform active straight leg raise test. He is able to actively dorsi and plantarflex his foot and detect light sensation touch over the pads of all digits. He tolerates logroll testing without discomfort. I was only able to flex his hip to about 65 degrees before he experienced discomfort. He tolerates light passive internal and external hip rotation at this degree of flexion. His quad strength is 3 out of 5. He is neurovascularly intact in the right lower extremity. Results & Data Vital Signs (Past 12 Hours) Vital Signs Temp Pulse Resp BP Pulse Ox O2 Del Method O2 Flow Rate 03/21/25 09:18 Nasal Cannula 1 03/21/25 07:04 36.6 C 74 16 103/58 L 94 Room Air (1) Closed fracture of neck of right femur Encounter type: initial encounter Qualified Code(s): S72.001A - Fracture of unspecified part of neck of right femur, initial encounter for closed fracture
--- NOTE | 2025-03-22 00:31 | Hospitalist Progress Note ---
Date of Service March 21, 2025 Assessment & Plan (1) Counseling regarding advanced directives and goals of care: (2) Discussion about advance care planning held with family member: (3) Hepatic encephalopathy: (4) Age-related osteoporosis with current pathological fracture, right femur, subsequent encounter for fracture with routine healing: (5) Pancytopenia: (6) ALINE (acute kidney injury): (7) Osteoporosis: (8) Acute postoperative pulmonary insufficiency: (9) Anasarca: (10) Decompensated hepatic cirrhosis: (11) Status cardiac pacemaker: (12) Acute blood loss anemia: (13) B-cell lymphoma: (14) Failure to thrive: Plan 84yo male with history of high degree AV block s/p pacemaker, cirrhosis, pancytopenia, 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 #acute post-op pulmonary insufficiency - -has never recovered from this fully; improved but has not resolved -2nd to ongoing pulmonary edema, COPD -CTA chest 03/20 with no PEs but emphysematous changes, b/l pleural effusions, and b/l lower lobe infiltrates - suspect pulm edema -speech therapy consulted and did not feel he is aspirating -despite 25+ liters negative his cxr, CT chest, and exam are c/w ongoing pulm edema -cont 1mg bumex BID and aldactone 100 qam #age-related osteoporotic right femoral neck fracture - -s/p closed reduction with troch nail on 03/[address] Hernández, [facility] -25-OH Vitamin D level - 36 -PT/OT has been significantly limited by right hip pain, severe deconditioning, severe dyspnea, etc. -unable to get from bed to chair, and sleeping alot -rehab potential significantly limited by his advanced cirrhosis, cardiopulmonary status, failture to thrive, etc. -see below re: pain meds #ALINE - resolved - -peak Cr 1.77 -admission Cr 0.74 -most recent Cr <1 -stop any further blood draws #hypotension - resolved - -2nd to acute blood loss anemia in the setting of advanced cirrhosis -can continue midodrine 10mg TID for now #cirrhosis - decompensated/advanced - -2nd to h/o etoh abuse -advanced; previous CT a/p in 2022 with esophageal varices, splenomegaly, etc. -CT with similar findings this admission -markedly decompensated with pulmonary edema/anasarca the majority of this stay -cont aldactone 100mg qam and bumex 1mg BID -with transitioning to [facility] will stop salt restriction; allow regular diet -due to previous liver lesions in [address] liver w/ and w/o contrast this admission -liver lesions are less in # and smaller -this would argue against cancerous process but not entirely ruled out -regardless no further w/u #hepatic encephalopathy - -ongoing despite lactulose 30gm daily and rifaximin BID -stop lactulose; he does not like it due to fecal incontinence & diarrhea -stop rifaximin #acute blood loss anemia - -2nd to right hip fracture, perioperative blood loss, frequent phlebotomy, etc. -admit hemoglobin 12.9 -he is s/p 1 unit of PRBCs earlier this admission -stop any further CBC checks #pancytopenia - -likely 2nd to advanced cirrhosis/splenomegaly -also, in 2022, flow cytometry suggested he had B cell lymphoma - but he never had f/u for such -checked TSH, B12, folate - all wnl -CT chest/a/p - no pathological lymphadenopathy seen #Chronic Dyspnea/Emphysema - -2nd to COPD -can stop inhalers; just use nebs prn for symptoms #Venous insufficiency - -cont diuretics as comfort measure to keep breathing optimally -checked doppler (venous) of RLE - neg for DVT #s/p cardiac pacemaker - -placed for high-degree AV block -[facility] #Thrombocytopenia - -Due to cirrhosis/hypersplenism -Baseline platelet count 50-70 -bottomed in the 40s and had continued to improve daily -stop further CBC checks #B-cell lymphoma - suspected - -s/p liver biopsy (numerous liver lesions on CT 2022) - B cells noted on that biopsy but not conclusive -s/p flow cytometry in 2022 -- that was highly suggestive of B-Cell lymphoma -however, never had follow-up with oncology for this issue following 2022 admission -transitioning to [facility] #DVT proph - -stop aspirin met with pt's , son, and Estelle Yoni from palliative care - see separate advanced planning note transitioning to [facility] today ultimate goal is [facility] for hospice Admission and Anticipated Discharge Date Admission Date: March 02, 2025 Subjective no events overnight R hip pain remains poor appetite dyspnea overall improved some confusion Physical Exam Physical Exam: gen - awake, but mildly confused neck - JVD resolved heart - RRR, s1 s2, 2/6 systolic murmur LSB lungs - b/l basilar crackles, no wheeze, no increased work of breathing abd - soft, NT; BS+; ND ext - right leg with mild edema R thigh 1+; [place]/ankle on right <1+ edema; trace edema LLE; pulses b/l feet 2+ - scrotal edema resolved; waldrop in place skin - dressings intact Right lateral thigh neuro - mild asterixis psych - awake, but confused Results & Data Results & Data Vital Signs (Past 12 Hours) Vital Signs Temp Pulse Resp BP Pulse Ox O2 Del Method O2 Flow Rate 03/21/25 09:18 Nasal Cannula 1 03/21/25 07:04 36.6 C 74 16 103/58 L 94 Room Air Laboratory Results Laboratory Results - last 24 hr 03/21/25 03/21/25 07:29 07:32 VBG pH 7.48 H VBG pCO2 35 L VBG pO2 57 VBG HCO3 26 VBG O2 Saturation 90.9 VBG Base Excess 2.8 Sodium 135 L Potassium 4.2 Chloride 102 Carbon Dioxide 26 Anion Gap 7 BUN 21 Creatinine 0.67 Est Cr Clr Drug Dosing 103.4 eGFR 93.22 BUN/Creatinine Ratio 31.3 H Glucose 106 H Calcium 8.4 L Magnesium 1.8 Ammonia 73.0 H PG Care Time/CCT Total # of Minutes Spent Total Time Spent with Patient: Total time spent is greater than 50% in coordination of care (as documented) at patient's floor/unit and/or counseling patient: Coding Level of Care Code 67081 SUB INP/OBS CARE 2/35MIN Diagnoses Counseling regarding advanced directives and goals of care Z71.89 Discussion about advance care planning held with family member Z71.0 Hepatic encephalopathy K76.82 Age-related osteoporosis with current pathological fracture, right femur, subsequent encounter for fracture with routine healing M80.051D Pancytopenia D61.818 ALINE (acute kidney injury) N17.9 Age related osteoporosis, unspecified pathological fracture presence M81.0 Osteoporosis type: age-related Presence of current pathological fracture: unspecified Acute postoperative pulmonary insufficiency J95.2 Anasarca R60.1 Decompensated hepatic cirrhosis K72.90; K74.60 Status cardiac pacemaker Z95.0 Acute blood loss anemia D62 B-cell lymphoma C85.10 Failure to thrive (7) Osteoporosis Osteoporosis type: age-related Presence of current pathological fracture: unspecified Qualified Code(s): M81.0 - Age-related osteoporosis without current pathological fracture
[2025-03-22] MEDS: ACETAMINOPHEN 1,000 MG/100 ML VIAL IV PRN (09:17)
--- NOTE | 2025-03-22 12:24 | Palliative Care Progress Note ---
Date of Service March 22, 2025 Assessment & Plan (1) Palliative care by specialist: Plan: Palliative care will continue to follow for ongoing EOL pt care and family support. (2) Comfort measures only status: Plan: Per patient and family request, pt transitioned to NEW HOME SALES CONSULTANT on 03/21/25. (3) Need for comfort care: Plan: Comfort plan of care parameters: 1. Patient/Family want hospice added to their care. 2. NO rehab/PT/OT 3. Strictly End of Life care only 4. NO escalation of care: do not increase oxygen, escalate therapies, etc. The focus is on comfort through end of life, assure this is accomplished with aggressive symptom management (i.e. relief of dyspnea, pain, etc.) 5. NO return to hospital 6. NO labs, imaging, surgery 7. Oral intake as desired for comfort and pleasure: NO dietary restriction, Allow permissive aspiration, do not withhold food or drink for concern of aspiration and allow PO for pleasure and comfort. 8. If difficulty urinating/commode/bedpan, ok to place Clayton catheter for comfort/hygiene/skin protection AND/OR Continue Clayton catheter for comfort/hygiene/skin protection 9. NO: calorie counts, artificial nutrition, feeding tubes or IV fluids EOL Symptom manamgement: Pain/dyspnea/tachypnea Tylenol 1000mg PO PRN for mild pain morphine 2mg IVP PRN [id number] Consider titratable morphine drip if pt requires >3 PRN doses in under two consecutive hours. Nausea/vomitting zofran 4mg IVP q4h PRN Agitation ativan 0.5mg IVP q4h PRN Hyperactive delirium haldol 5mg IVP q6h PRN Secretions - if repositioning not effective robinul 0.4mg IV q4h PRN atropine SL 3 drops Q1h PRN Nursing care: Discontinue all medications not directed towards comfort. Detether pt from IV tubing, monitor cables, and check vitals once per shift. Please continue HFNC and titrate down as able for patient comfort. Use medications above PRN for dyspnea/tachypnea and do not increase oxygen once titrated down. Assess q1h for pain/dyspnea and treat accordingly. Plan Pt transitioned to NEW HOME SALES CONSULTANT yesterday, he is comfortable with minimal requirement for PRN medications. Pt to be discharged to [facility] for ongoing hospice care. Admission and Anticipated Discharge Date Admission Date: March 02, 2025 Subjective Assessed pt at bedside, his son, daughter in law and two grand children were present. Pt is more alert today, c/o only mild pain in right hip and BL knees. Pt receiving tylenol PRN for pain which he states is sufficient. VSS, pt in NAD on NC. Review of Systems Review of Systems: All systems reviewed & are unremarkable except as noted in HPI & below Physical Exam Constitutional: WD/WN, vitals as above Eyes: PERRL, conjunctivae normal, anicteric sclerae Neck: trachea midline, no thyromegaly Respiratory: + cough, + tachypneic and + prolonged ex piratory phase; no respiratory distress Cardiovascular: RRR, no murmur, no edema Skin: no rashes, warm and dry Neurologic: PERRL, EOMI, accommodation nl, no face palsy, no dysarthria Psychiatric: A+Ox3, euthymic affect Results & Data Vital Signs (Past 12 Hours) Vital Signs Temp 36.6 C 03/21/25 07:04 Pulse 74 03/21/25 07:04 Resp 16 03/21/25 07:04 BP 103/58 L 03/21/25 07:04 Pulse Ox 94 03/21/25 07:04 O2 Del Method Nasal Cannula 03/21/25 09:18 O2 Flow Rate 1 03/21/25 09:18 Intake & Output 03/21/25 03/22/25 03/22/25 18:59 06:59 18:59 Intake Total 900 / 900 100 / 100 Output Total 1750 / 3350 1600 / 3350 450 / 450 Balance -1750 / -2450 -700 / -2450 -350 / -350 Weight 102 kg Intake: IV 100 / 100 Acetaminophen 1,000 mg In 100 100 / 100 ml @ 400 mls/hr IV Q8H PRN Rx#: [id number] Oral 900 / 900 Output: Urine Amount (Catheter) 1750 / 3350 1600 / 3350 450 / 450 Clayton/Indwelling 1750 / 3350 1600 / 3350 450 / 450 Laboratory Results No further labs or diagnostics in concert with comfort directed care. Diagnostic Findings No further labs or diagnostics in concert with comfort directed care. Medications Administered Current Inpatient Medications Albuterol (Albuterol Hfa 8 Gm Inhaler) 2 puffs INH QIDR PRN PRN Reason: Shortness Of Breath Or Wheezing Stop: 04/03/25 06:59 Last Admin: 03/11/25 18:30 Dose: 2 puffs Albuterol (Albut/Ipratrop 3mg/0.5mg Neb 3 Ml Vial) 3 ml NEB Q6R PRN; Protocol PRN Reason: Wheezing Stop: 04/08/25 18:59 Atropine Sulfate (Atropine Sulfate 1% Op Soln 5 Ml Btl) 4 drops SL Q1H PRN PRN Reason: Secretions or pulm congestion Stop: 04/20/25 08:50 Glycopyrrolate (Glycopyrrolate 0.2 Mg/Ml Vial) 0.4 mg IV Q4H PRN PRN Reason: Rattling Secretions or Pulm Congestion Stop: 04/20/25 08:50 Haloperidol (Haloperidol Oral Soln 2 Mg/Ml) 0.5 mg PO Q4H PRN PRN Reason: Anxiety/Agitation Stop: 04/20/25 08:50 Hyoscyamine (Hyoscyamine Sulfate 0.125 Mg Tab) 0.125 mg SL Q4H PRN PRN Reason: Secretions or Pulm Congestion Stop: 04/20/25 08:50 Bumetanide 1 mg/ Syringe 4 mls @ 4 mls/min IV BID@0900,1700 [facility] Stop: 04/18/25 09:44 Last Admin: 03/22/25 09:10 Dose: 4 mls/min Acetaminophen (Ofirmev) 1,000 mg in 100 mls @ 400 mls/hr IV Q8H PRN PRN Reason: pain Stop: 03/25/25 08:32 Last Infusion: 03/22/25 09:32 Dose: Infused Loratadine (Loratadine 10 Mg Tab) 10 mg PO QAM [facility] Stop: 04/18/25 08:59 Last Admin: 03/22/25 09:09 Dose: 10 mg Lorazepam (Lorazepam 2 Mg/1 Ml Vial) 0.5 mg IV Q4H PRN PRN Reason: Anxiety/Agitation Stop: 04/20/25 08:50 Midodrine (Midodrine Hcl 10 Mg Tab) 10 mg PO TID@0800,1200,1700 [facility] Stop: 04/17/25 07:59 Last Admin: 03/22/25 09:10 Dose: 10 mg Ondansetron HCl (Ondansetron Inj 2 Mg/Ml 2 Ml Vial) 4 mg IV Q4H PRN PRN Reason: Nausea &/or Vomiting Stop: 04/20/25 08:50 Ondansetron HCl (Ondansetron 4 Mg Od Tab) 4 mg SL Q4H PRN PRN Reason: Nausea &/or Vomiting Stop: 04/20/25 08:50 Pantoprazole Sodium (Pantoprazole 40 Mg Tab) 40 mg PO BID [facility] Stop: 04/15/25 08:59 Last Admin: 03/22/25 09:10 Dose: 40 mg Spironolactone (Spironolactone 100 Mg Tab) 100 mg PO QAM [facility] Stop: 04/08/25 08:59 Last Admin: 03/22/25 09:10 Dose: 100 mg PG Care Time/CCT Total # of Minutes Spent Total Time Spent with Patient: Total time spent is greater than 50% in coordination of care (as documented) at patient's floor/unit and/or counseling patient: Coding Level of Care Code 95416 SUB INP/OBS CARE 2/35MIN Diagnoses Palliative care by specialist Z51.5 Comfort measures only status Z51.5 Need for comfort care
--- NOTE | 2025-03-22 12:36 | Advance Care Plan Prog Note ---
Advanced Care Planning Note Date of Discussion March 21, 2025 ACP Discussion Diagnoses requiring ACP discussion: advanced cirrhosis, COPD, recent right hip fracture s/p repair, hepatic encephalopathy, failure to thrive. A [id number] discussion with the patient's & son regarding the patient's advanced care planning took place during this hospitalization on the above date. The discussion included the explanation and discussion of advance directives and associated forms/documents (POLST), as well as the patient's current code status (remains DNR/DNI). We also discussed at length the patient's medical conditions (both acute and chronic), general prognosis, treatment options, and goals of care. The following summarizes the discussion: Reviewed all events during the hospitalization - right hip fracture surgery, aaliyah immediate post-op course (ALINE, acute blood loss anemia, altered mental status, severe volume overload, acute post-op pulmonary insufficiency), ongoing failure to thrive, ongoing volume overload from cirrhosis, ongoing hepatic encephalopathy, limited ability to participate in PT/OT, etc. Reviewed best case scenario outcome (pt strong enough to actively participate in therapy, goes to rehab, and gets well enough to go home with ) vs worst case scenario (ongoing failure to thrive, limited to no improvement in all medical issues, and transition to HOOK LOADER). Pt's voiced that she felt her was suffering and simply wanted to keep her comfortable. Pt's son supported his mother on all fronts. Both agreed that even before his fall leading to right hip fracture he had been declining for months/years and ambulation had become very challenging at home. has said he was taking on severe edema in his legs, etc in the weeks leading up to this admission. We discussed HOOK LOADER, hospice, and the differences between the two. Pt's /son both agreeable to transition to HOOK LOADER at [facility], and then ultimate d/c to [facility] in [place] with hospice in place. Getting Mr Hi to [facility] will allow his /son to visit more easily as they live in [place] [facility] [place]. Ms Vallejo placed HOOK LOADER orders; lactulose/rifaximin stopped, diuretics to be continued to keep breathing as comfortable as possible. Pain meds, etc. all ordered. Social work made aware of transition to HOOK LOADER and referral to [facility]. Offered to have our hospital warehouse inventory clerk visit with them. Offered to call local [facility] for communion and anointing of the sick sacrament if desired by family. Advance Care Planning/Goals of Care Will attempt to fill out an AD and/or POLST with the pt prior to d/c, Will continue to support the patient/family and Will continue to discuss both short- and long-term goals of care DPOA-HC/Surrogate Decision Maker Pt's - Susu Hi Status Resuscitation Status DNR/DNI No Resuscitation Total Time I spent a total of 50 minutes was spent on this discussion, including counseling, answering questions, and completing, if any, pertinent advanced care planning forms/documents.
--- NOTE | 2025-03-22 18:00 | Hospitalist Progress Note ---
Date of Service March 22, 2025 Assessment & Plan (1) Counseling regarding advanced directives and goals of care: (2) Discussion about advance care planning held with family member: (3) Hepatic encephalopathy: (4) Age-related osteoporosis with current pathological fracture, right femur, subsequent encounter for fracture with routine healing: (5) Pancytopenia: (6) ALINE (acute kidney injury): (7) Osteoporosis: (8) Acute postoperative pulmonary insufficiency: (9) Anasarca: (10) Decompensated hepatic cirrhosis: (11) Status cardiac pacemaker: (12) Acute blood loss anemia: (13) B-cell lymphoma: (14) Failure to thrive: Plan 84yo male with history of high degree AV block s/p pacemaker, cirrhosis, pancytopenia, 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 #acute post-op pulmonary insufficiency - -has never recovered from this fully; improved but has not resolved -2nd to ongoing pulmonary edema, COPD -CTA chest 03/20 with no PEs but emphysematous changes, b/l pleural effusions, and b/l lower lobe infiltrates - suspect pulm edema -speech therapy consulted and did not feel he is aspirating -despite 25+ liters negative his cxr, CT chest, and exam are c/w ongoing pulm edema -cont 1mg bumex BID and aldactone 100 qam -now transitioned to BLANKET CUTTING MACHINE OPERATOR. #age-related osteoporotic right femoral neck fracture - -s/p closed reduction with troch nail on 03/[address] Hernández, [facility] -25-OH Vitamin D level - 36 -PT/OT has been significantly limited by right hip pain, severe deconditioning, severe dyspnea, etc. -unable to get from bed to chair, and sleeping alot -rehab potential significantly limited by his advanced cirrhosis, cardiopulmonary status, failture to thrive, etc. -see below re: pain meds #ALINE - resolved - -peak Cr 1.77 -admission Cr 0.74 -most recent Cr <1 -stop any further blood draws #hypotension - resolved - -2nd to acute blood loss anemia in the setting of advanced cirrhosis -can continue midodrine 10mg TID for now #cirrhosis - decompensated/advanced - -2nd to h/o etoh abuse -advanced; previous CT a/p in 2022 with esophageal varices, splenomegaly, etc. -CT with similar findings this admission -markedly decompensated with pulmonary edema/anasarca the majority of this stay -cont aldactone 100mg qam and bumex 1mg BID -with transitioning to BLANKET CUTTING MACHINE OPERATOR will stop salt restriction; allow regular diet -due to previous liver lesions in [address] liver w/ and w/o contrast this admission -liver lesions are less in # and smaller -this would argue against cancerous process but not entirely ruled out -regardless no further w/u #hepatic encephalopathy - -ongoing despite lactulose 30gm daily and rifaximin BID -stop lactulose; he does not like it due to fecal incontinence & diarrhea -stop rifaximin #acute blood loss anemia - -2nd to right hip fracture, perioperative blood loss, frequent phlebotomy, etc. -admit hemoglobin 12.9 -he is s/p 1 unit of PRBCs earlier this admission -stop any further CBC checks #pancytopenia - -likely 2nd to advanced cirrhosis/splenomegaly -also, in 2022, flow cytometry suggested he had B cell lymphoma - but he never had f/u for such -checked TSH, B12, folate - all wnl -CT chest/a/p - no pathological lymphadenopathy seen #Chronic Dyspnea/Emphysema - -2nd to COPD -can stop inhalers; just use nebs prn for symptoms #Venous insufficiency - -cont diuretics as comfort measure to keep breathing optimally -checked doppler (venous) of RLE - neg for DVT #s/p cardiac pacemaker - -placed for high-degree AV block -previously followed with [facility] #Thrombocytopenia - -Due to cirrhosis/hypersplenism -Baseline platelet count 50-70 -bottomed in the 40s and had continued to improve daily -stop further CBC checks #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 Physical Exam Physical Exam: gen - looks chronically unwell, no longer confused. neck - JVD present - slightly improved mouth - MMM heart - RRR, s1 s2, 2/6 systolic murmur LSB lungs - lungs sound clearer abd - distended/body wall edema?; NT; BS+; no caput medosa - scrotal edema, waldrop in place ext - right leg with decreased edema R thigh, and 1-2+ edema from knee to foot on right; 1+ edema entire left leg from foot to thigh; pulses b/l feet 2+ PG Care Time/CCT Total # of Minutes Spent Total Time Spent with Patient: Total time spent is greater than 50% in coordination of care (as documented) at patient's floor/unit and/or counseling patient: Coding Level of Care Code 78364 SUB INP/OBS CARE 3/50MIN Diagnoses Counseling regarding advanced directives and goals of care Z71.89 Discussion about advance care planning held with family member Z71.0 Hepatic encephalopathy K76.82 Age-related osteoporosis with current pathological fracture, right femur, subsequent encounter for fracture with routine healing M80.051D Pancytopenia D61.818 ALINE (acute kidney injury) N17.9 Age related osteoporosis, unspecified pathological fracture presence M81.0 Osteoporosis type: age-related Presence of current pathological fracture: unspecified Acute postoperative pulmonary insufficiency J95.2 Anasarca R60.1 Decompensated hepatic cirrhosis K72.90; K74.60 Status cardiac pacemaker Z95.0 Acute blood loss anemia D62 B-cell lymphoma C85.10 Failure to thrive Time Spent (min) 50 Comment chart review (7) Osteoporosis Osteoporosis type: age-related Presence of current pathological fracture: unspecified Qualified Code(s): M81.0 - Age-related osteoporosis without current pathological fracture
[2025-03-22] MEDS: NYSTATIN CR 15 GM TUBE EXT SCH (21:02)
--- NOTE | 2025-03-23 09:01 | Hospitalist Progress Note ---
Date of Service March 23, 2025 Assessment & Plan (1) Counseling regarding advanced directives and goals of care: (2) Discussion about advance care planning held with family member: (3) Hepatic encephalopathy: (4) Age-related osteoporosis with current pathological fracture, right femur, subsequent encounter for fracture with routine healing: (5) Pancytopenia: (6) ALINE (acute kidney injury): (7) Osteoporosis: (8) Acute postoperative pulmonary insufficiency: (9) Anasarca: (10) Decompensated hepatic cirrhosis: (11) Status cardiac pacemaker: (12) Acute blood loss anemia: (13) B-cell lymphoma: (14) Failure to thrive: Plan 84yo male with history of high degree AV block s/p pacemaker, cirrhosis, pancytopenia, 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 #acute post-op pulmonary insufficiency - -has never recovered from this fully; improved but has not resolved -2nd to ongoing pulmonary edema, COPD -CTA chest 03/20 with no PEs but emphysematous changes, b/l pleural effusions, and b/l lower lobe infiltrates - suspect pulm edema -speech therapy consulted and did not feel he is aspirating -despite 25+ liters negative his cxr, CT chest, and exam are c/w ongoing pulm edema -cont 1mg bumex BID and aldactone 100 qam -now transitioned to CUSTOMER RESPONSE REPRESENTATIVE. will do a trial without urinary catheter. #age-related osteoporotic right femoral neck fracture - -s/p closed reduction with troch nail on 03/[address] Hernández, [facility] -25-OH Vitamin D level - 36 -PT/OT has been significantly limited by right hip pain, severe deconditioning, severe dyspnea, etc. -unable to get from bed to chair, and sleeping alot -rehab potential significantly limited by his advanced cirrhosis, cardiopulmonary status, failture to thrive, etc. -see below re: pain meds #ALINE - resolved - -peak Cr 1.77 -admission Cr 0.74 -most recent Cr <1 -stop any further blood draws #hypotension - resolved - -2nd to acute blood loss anemia in the setting of advanced cirrhosis -can continue midodrine 10mg TID for now #cirrhosis - decompensated/advanced - -2nd to h/o etoh abuse -advanced; previous CT a/p in 2022 with esophageal varices, splenomegaly, etc. -CT with similar findings this admission -markedly decompensated with pulmonary edema/anasarca the majority of this stay -cont aldactone 100mg qam and bumex 1mg BID -with transitioning to CUSTOMER RESPONSE REPRESENTATIVE will stop salt restriction; allow regular diet -due to previous liver lesions in [address] liver w/ and w/o contrast this admission -liver lesions are less in # and smaller -this would argue against cancerous process but not entirely ruled out -regardless no further w/u #hepatic encephalopathy - -ongoing despite lactulose 30gm daily and rifaximin BID -stop lactulose; he does not like it due to fecal incontinence & diarrhea -stop rifaximin #acute blood loss anemia - -2nd to right hip fracture, perioperative blood loss, frequent phlebotomy, etc. -admit hemoglobin 12.9 -he is s/p 1 unit of PRBCs earlier this admission -stop any further CBC checks #pancytopenia - -likely 2nd to advanced cirrhosis/splenomegaly -also, in 2022, flow cytometry suggested he had B cell lymphoma - but he never had f/u for such -checked TSH, B12, folate - all wnl -CT chest/a/p - no pathological lymphadenopathy seen #Chronic Dyspnea/Emphysema - -2nd to COPD -can stop inhalers; just use nebs prn for symptoms #Venous insufficiency - -cont diuretics as comfort measure to keep breathing optimally -checked doppler (venous) of RLE - neg for DVT #s/p cardiac pacemaker - -placed for high-degree AV block -previously followed with [facility] #Thrombocytopenia - -Due to cirrhosis/hypersplenism -Baseline platelet count 50-70 -bottomed in the 40s and had continued to improve daily -stop further CBC checks #B-cell lymphoma - suspected - -s/p liver biopsy (numerous liver lesions on CT 2022) - B cells noted on that biopsy but not conclusive -s/p flow cytometry in 2022 -- that was highly suggestive of B-Cell lymphoma -however, never had follow-up with oncology for this issue following 2022 admission -transitioning to CUSTOMER RESPONSE REPRESENTATIVE #DVT proph - -stop aspirin CUSTOMER RESPONSE REPRESENTATIVE ultimate goal is [facility] for hospice Admission and Anticipated Discharge Date Admission Date: March 02, 2025 Subjective 84 yo male is on comfort measures. He is awake and in no distress. He feels weel but states that he is very weak. Review of Systems Review of Systems: All systems reviewed & are unremarkable except as noted in HPI & below Physical Exam Physical Exam: gen - looks chronically unwell, no longer confused. neck - JVD present - slightly improved mouth - MMM heart - RRR, s1 s2, 2/6 systolic murmur LSB lungs - lungs sound clearer abd - distended/body wall edema?; NT; BS+; no caput medosa - scrotal edema, waldrop in place ext - right leg with decreased edema R thigh, and 1-2+ edema from knee to foot on right; 1+ edema entire left leg from foot to thigh; pulses b/l feet 2+ PG Care Time/CCT Total # of Minutes Spent Total Time Spent with Patient: Total time spent is greater than 50% in coordination of care (as documented) at patient's floor/unit and/or counseling patient: Coding Level of Care Code 57462 SUB INP/OBS CARE 2/35MIN Diagnoses Counseling regarding advanced directives and goals of care Z71.89 Discussion about advance care planning held with family member Z71.0 Hepatic encephalopathy K76.82 Age-related osteoporosis with current pathological fracture, right femur, subsequent encounter for fracture with routine healing M80.051D Pancytopenia D61.818 ALINE (acute kidney injury) N17.9 Age related osteoporosis, unspecified pathological fracture presence M81.0 Osteoporosis type: age-related Presence of current pathological fracture: unspecified Acute postoperative pulmonary insufficiency J95.2 Anasarca R60.1 Decompensated hepatic cirrhosis K72.90; K74.60 Status cardiac pacemaker Z95.0 Acute blood loss anemia D62 B-cell lymphoma C85.10 Failure to thrive (7) Osteoporosis Osteoporosis type: age-related Presence of current pathological fracture: unspecified Qualified Code(s): M81.0 - Age-related osteoporosis without current pathological fracture
[2025-03-24 10:32] VITALS: RESP 16; TEMP 97.9
--- NOTE | 2025-03-24 17:39 | Hospitalist Progress Note ---
Date of Service March 24, 2025 Assessment & Plan (1) Counseling regarding advanced directives and goals of care: (2) Discussion about advance care planning held with family member: (3) Hepatic encephalopathy: (4) Age-related osteoporosis with current pathological fracture, right femur, subsequent encounter for fracture with routine healing: (5) Pancytopenia: (6) ALINE (acute kidney injury): (7) Osteoporosis: (8) Acute postoperative pulmonary insufficiency: (9) Anasarca: (10) Decompensated hepatic cirrhosis: (11) Status cardiac pacemaker: (12) Acute blood loss anemia: (13) B-cell lymphoma: (14) Failure to thrive: Plan 84yo male with history of high degree AV block s/p pacemaker, cirrhosis, pancytopenia, 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 #acute post-op pulmonary insufficiency - -has never recovered from this fully; improved but has not resolved -2nd to ongoing pulmonary edema, COPD -CTA chest 03/20 with no PEs but emphysematous changes, b/l pleural effusions, and b/l lower lobe infiltrates - suspect pulm edema -speech therapy consulted and did not feel he is aspirating -despite 25+ liters negative his cxr, CT chest, and exam are c/w ongoing pulm edema -cont 1mg bumex BID and aldactone 100 qam -now transitioned to MULTICRAFT OPERATOR. #age-related osteoporotic right femoral neck fracture - -s/p closed reduction with troch nail on 03/[address] Hernández, [facility] -25-OH Vitamin D level - 36 -PT/OT has been significantly limited by right hip pain, severe deconditioning, severe dyspnea, etc. -unable to get from bed to chair, and sleeping alot -rehab potential significantly limited by his advanced cirrhosis, cardiopulmonary status, failture to thrive, etc. -see below re: pain meds #ALINE - resolved - -peak Cr 1.77 -admission Cr 0.74 -most recent Cr <1 -stop any further blood draws #hypotension - resolved - -2nd to acute blood loss anemia in the setting of advanced cirrhosis -can continue midodrine 10mg TID for now #cirrhosis - decompensated/advanced - -2nd to h/o etoh abuse -advanced; previous CT a/p in 2022 with esophageal varices, splenomegaly, etc. -CT with similar findings this admission -markedly decompensated with pulmonary edema/anasarca the majority of this stay -cont aldactone 100mg qam and bumex 1mg BID -with transitioning to MULTICRAFT OPERATOR will stop salt restriction; allow regular diet -due to previous liver lesions in [address] liver w/ and w/o contrast this admission -liver lesions are less in # and smaller -this would argue against cancerous process but not entirely ruled out -regardless no further w/u #hepatic encephalopathy - -ongoing despite lactulose 30gm daily and rifaximin BID -stop lactulose; he does not like it due to fecal incontinence & diarrhea -stop rifaximin #acute blood loss anemia - -2nd to right hip fracture, perioperative blood loss, frequent phlebotomy, etc. -admit hemoglobin 12.9 -he is s/p 1 unit of PRBCs earlier this admission -stop any further CBC checks #pancytopenia - -likely 2nd to advanced cirrhosis/splenomegaly -also, in 2022, flow cytometry suggested he had B cell lymphoma - but he never had f/u for such -checked TSH, B12, folate - all wnl -CT chest/a/p - no pathological lymphadenopathy seen #Chronic Dyspnea/Emphysema - -2nd to COPD -can stop inhalers; just use nebs prn for symptoms #Venous insufficiency - -cont diuretics as comfort measure to keep breathing optimally -checked doppler (venous) of RLE - neg for DVT #s/p cardiac pacemaker - -placed for high-degree AV block -previously followed with [facility] #Thrombocytopenia - -Due to cirrhosis/hypersplenism -Baseline platelet count 50-70 -bottomed in the 40s and had continued to improve daily -stop further CBC checks #B-cell lymphoma - suspected - -s/p liver biopsy (numerous liver lesions on CT 2022) - B cells noted on that biopsy but not conclusive -s/p flow cytometry in 2022 -- that was highly suggestive of B-Cell lymphoma -however, never had follow-up with oncology for this issue following 2022 admission -transitioning to MULTICRAFT OPERATOR #DVT proph - -stop aspirin MULTICRAFT OPERATOR ultimate goal is [place] for hospice vs home with hospice Admission and Anticipated Discharge Date Admission Date: March 02, 2025 Subjective 84 yo male appears comfortable. Updated family at bedside. Physical Exam Physical Exam: gen - looks chronically unwell, no longer confused. mouth - MMM heart - RRR, s1 s2, 2/6 systolic murmur LSB lungs - lungs sound clearer abd - distended/body wall edema?; NT; BS+; no caput medosa - waldrop removed ext - right leg with decreased edema R thigh, and 1-2+ edema from knee to foot on right; 1+ edema entire left leg from foot to thigh; pulses b/l feet 2+ PG Care Time/CCT Total # of Minutes Spent Total Time Spent with Patient: Total time spent is greater than 50% in coordination of care (as documented) at patient's floor/unit and/or counseling patient: Coding Level of Care Code 40299 SUB INP/OBS CARE 2/35MIN Diagnoses Counseling regarding advanced directives and goals of care Z71.89 Discussion about advance care planning held with family member Z71.0 Hepatic encephalopathy K76.82 Age-related osteoporosis with current pathological fracture, right femur, subsequent encounter for fracture with routine healing M80.051D Pancytopenia D61.818 ALINE (acute kidney injury) N17.9 Age related osteoporosis, unspecified pathological fracture presence M81.0 Osteoporosis type: age-related Presence of current pathological fracture: unspecified Acute postoperative pulmonary insufficiency J95.2 Anasarca R60.1 Decompensated hepatic cirrhosis K72.90; K74.60 Status cardiac pacemaker Z95.0 Acute blood loss anemia D62 B-cell lymphoma C85.10 Failure to thrive (7) Osteoporosis Osteoporosis type: age-related Presence of current pathological fracture: unspecified Qualified Code(s): M81.0 - Age-related osteoporosis without current pathological fracture
--- NOTE | 2025-03-25 12:53 | Hospitalist Progress Note ---
Date of Service March 25, 2025 Assessment & Plan (1) Counseling regarding advanced directives and goals of care: (2) Discussion about advance care planning held with family member: (3) Hepatic encephalopathy: (4) Age-related osteoporosis with current pathological fracture, right femur, subsequent encounter for fracture with routine healing: (5) Pancytopenia: (6) ALINE (acute kidney injury): (7) Osteoporosis: (8) Acute postoperative pulmonary insufficiency: (9) Anasarca: (10) Decompensated hepatic cirrhosis: (11) Status cardiac pacemaker: (12) Acute blood loss anemia: (13) B-cell lymphoma: (14) Failure to thrive: Plan 84yo male with history of high degree AV block s/p pacemaker, cirrhosis, pancytopenia, 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 #acute post-op pulmonary insufficiency - -has never recovered from this fully; improved but has not resolved -2nd to ongoing pulmonary edema, COPD -CTA chest 03/20 with no PEs but emphysematous changes, b/l pleural effusions, and b/l lower lobe infiltrates - suspect pulm edema -speech therapy consulted and did not feel he is aspirating -despite 25+ liters negative his cxr, CT chest, and exam are c/w ongoing pulm edema -cont 1mg bumex BID and aldactone 100 qam -now transitioned to FASHION JOURNALIST. #age-related osteoporotic right femoral neck fracture - -s/p closed reduction with troch nail on 03/[address] Hernández, [facility] -25-OH Vitamin D level - 36 -PT/OT has been significantly limited by right hip pain, severe deconditioning, severe dyspnea, etc. -unable to get from bed to chair, and sleeping alot -rehab potential significantly limited by his advanced cirrhosis, cardiopulmonary status, failture to thrive, etc. -see below re: pain meds #ALINE - resolved - -peak Cr 1.77 -admission Cr 0.74 -most recent Cr <1 -stop any further blood draws #hypotension - resolved - -2nd to acute blood loss anemia in the setting of advanced cirrhosis -can continue midodrine 10mg TID for now #cirrhosis - decompensated/advanced - -2nd to h/o etoh abuse -advanced; previous CT a/p in 2022 with esophageal varices, splenomegaly, etc. -CT with similar findings this admission -markedly decompensated with pulmonary edema/anasarca the majority of this stay -cont aldactone 100mg qam and bumex 1mg BID -with transitioning to FASHION JOURNALIST will stop salt restriction; allow regular diet -due to previous liver lesions in [address] liver w/ and w/o contrast this admission -liver lesions are less in # and smaller -this would argue against cancerous process but not entirely ruled out -regardless no further w/u #hepatic encephalopathy - -ongoing despite lactulose 30gm daily and rifaximin BID -stop lactulose; he does not like it due to fecal incontinence & diarrhea -stop rifaximin #acute blood loss anemia - -2nd to right hip fracture, perioperative blood loss, frequent phlebotomy, etc. -admit hemoglobin 12.9 -he is s/p 1 unit of PRBCs earlier this admission -stop any further CBC checks #pancytopenia - -likely 2nd to advanced cirrhosis/splenomegaly -also, in 2022, flow cytometry suggested he had B cell lymphoma - but he never had f/u for such -checked TSH, B12, folate - all wnl -CT chest/a/p - no pathological lymphadenopathy seen #Chronic Dyspnea/Emphysema - -2nd to COPD -can stop inhalers; just use nebs prn for symptoms #Venous insufficiency - -cont diuretics as comfort measure to keep breathing optimally -checked doppler (venous) of RLE - neg for DVT #s/p cardiac pacemaker - -placed for high-degree AV block -previously followed with [facility] #Thrombocytopenia - -Due to cirrhosis/hypersplenism -Baseline platelet count 50-70 -bottomed in the 40s and had continued to improve daily -stop further CBC checks #B-cell lymphoma - suspected - -s/p liver biopsy (numerous liver lesions on CT 2022) - B cells noted on that biopsy but not conclusive -s/p flow cytometry in 2022 -- that was highly suggestive of B-Cell lymphoma -however, never had follow-up with oncology for this issue following 2022 admission -transitioning to FASHION JOURNALIST #DVT proph - -stop aspirin FASHION JOURNALIST ultimate goal is [place] for hospice vs home with hospice Admission and Anticipated Discharge Date Admission Date: March 02, 2025 Subjective appears comfortable. no symptoms now FASHION JOURNALIST Review of Systems Review of Systems: CV - no cp pulm - no cough GI - no N/V musculo - R hip pain Physical Exam Physical Exam: gen - looks chronically unwell, no longer confused. mouth - MMM heart - RRR, s1 s2, 2/6 systolic murmur LSB lungs - lungs sound clearer abd - distended/body wall edema?; NT; BS+; no caput medosa - waldrop removed ext - right leg with decreased edema R thigh, and 1-2+ edema from knee to foot on right; 1+ edema entire left leg from foot to thigh; pulses b/l feet 2+ Results & Data Results & Data Vital Signs (Past 12 Hours) Vital Signs O2 Del Method 03/25/25 08:00 Room Air PG Care Time/CCT Total # of Minutes Spent Total Time Spent with Patient: Total time spent is greater than 50% in coordination of care (as documented) at patient's floor/unit and/or counseling patient: Coding Level of Care Code 17133 SUB INP/OBS CARE 2/35MIN Diagnoses Counseling regarding advanced directives and goals of care Z71.89 Discussion about advance care planning held with family member Z71.0 Hepatic encephalopathy K76.82 Age-related osteoporosis with current pathological fracture, right femur, subsequent encounter for fracture with routine healing M80.051D Pancytopenia D61.818 ALINE (acute kidney injury) N17.9 Age related osteoporosis, unspecified pathological fracture presence M81.0 Osteoporosis type: age-related Presence of current pathological fracture: unspecified Acute postoperative pulmonary insufficiency J95.2 Anasarca R60.1 Decompensated hepatic cirrhosis K72.90; K74.60 Status cardiac pacemaker Z95.0 Acute blood loss anemia D62 B-cell lymphoma C85.10 Failure to thrive (7) Osteoporosis Osteoporosis type: age-related Presence of current pathological fracture: unspecified Qualified Code(s): M81.0 - Age-related osteoporosis without current pathological fracture
--- NOTE | 2025-03-26 10:18 | Hospitalist Progress Note ---
Date of Service March 26, 2025 Assessment & Plan (1) Counseling regarding advanced directives and goals of care: (2) Discussion about advance care planning held with family member: (3) Hepatic encephalopathy: (4) Age-related osteoporosis with current pathological fracture, right femur, subsequent encounter for fracture with routine healing: (5) Pancytopenia: (6) ALINE (acute kidney injury): (7) Osteoporosis: (8) Acute postoperative pulmonary insufficiency: (9) Anasarca: (10) Decompensated hepatic cirrhosis: (11) Status cardiac pacemaker: (12) Acute blood loss anemia: (13) B-cell lymphoma: (14) Failure to thrive: Plan 84yo male with history of high degree AV block s/p pacemaker, cirrhosis, pancytopenia, 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 #acute post-op pulmonary insufficiency - -has never recovered from this fully; improved but has not resolved -2nd to ongoing pulmonary edema, COPD -CTA chest 03/20 with no PEs but emphysematous changes, b/l pleural effusions, and b/l lower lobe infiltrates - suspect pulm edema -speech therapy consulted and did not feel he is aspirating -despite 25+ liters negative his cxr, CT chest, and exam are c/w ongoing pulm edema -cont 1mg bumex BID and aldactone 100 qam -now transitioned to RAILROAD MECHANIC. #age-related osteoporotic right femoral neck fracture - -s/p closed reduction with troch nail on 03/[address] Hernández, [facility] -25-OH Vitamin D level - 36 -PT/OT has been significantly limited by right hip pain, severe deconditioning, severe dyspnea, etc. -unable to get from bed to chair, and sleeping alot -rehab potential significantly limited by his advanced cirrhosis, cardiopulmonary status, failture to thrive, etc. -see below re: pain meds #ALINE - resolved - -peak Cr 1.77 -admission Cr 0.74 -most recent Cr <1 -stop any further blood draws #hypotension - resolved - -2nd to acute blood loss anemia in the setting of advanced cirrhosis -can continue midodrine 10mg TID for now #cirrhosis - decompensated/advanced - -2nd to h/o etoh abuse -advanced; previous CT a/p in 2022 with esophageal varices, splenomegaly, etc. -CT with similar findings this admission -markedly decompensated with pulmonary edema/anasarca the majority of this stay -cont aldactone 100mg qam and bumex 1mg BID -with transitioning to RAILROAD MECHANIC will stop salt restriction; allow regular diet -due to previous liver lesions in [address] liver w/ and w/o contrast this admission -liver lesions are less in # and smaller -this would argue against cancerous process but not entirely ruled out -regardless no further w/u #hepatic encephalopathy - -ongoing despite lactulose 30gm daily and rifaximin BID -stop lactulose; he does not like it due to fecal incontinence & diarrhea -stop rifaximin #acute blood loss anemia - -2nd to right hip fracture, perioperative blood loss, frequent phlebotomy, etc. -admit hemoglobin 12.9 -he is s/p 1 unit of PRBCs earlier this admission -stop any further CBC checks #pancytopenia - -likely 2nd to advanced cirrhosis/splenomegaly -also, in 2022, flow cytometry suggested he had B cell lymphoma - but he never had f/u for such -checked TSH, B12, folate - all wnl -CT chest/a/p - no pathological lymphadenopathy seen #Chronic Dyspnea/Emphysema - -2nd to COPD -can stop inhalers; just use nebs prn for symptoms #Venous insufficiency - -cont diuretics as comfort measure to keep breathing optimally -checked doppler (venous) of RLE - neg for DVT #s/p cardiac pacemaker - -placed for high-degree AV block -previously followed with [facility] #Thrombocytopenia - -Due to cirrhosis/hypersplenism -Baseline platelet count 50-70 -bottomed in the 40s and had continued to improve daily -stop further CBC checks #B-cell lymphoma - suspected - -s/p liver biopsy (numerous liver lesions on CT 2022) - B cells noted on that biopsy but not conclusive -s/p flow cytometry in 2022 -- that was highly suggestive of B-Cell lymphoma -however, never had follow-up with oncology for this issue following 2022 admission -transitioning to RAILROAD MECHANIC #DVT proph - -stop aspirin RAILROAD MECHANIC ultimate goal is [place] for hospice vs home with hospice Admission and Anticipated Discharge Date Admission Date: March 02, 2025 Subjective appears comfortable. no symptoms now RAILROAD MECHANIC Review of Systems Review of Systems: CV - no cp pulm - no cough GI - no N/V musculo - R hip pain Physical Exam Physical Exam: gen - looks chronically unwell, no longer confused. mouth - MMM heart - RRR, s1 s2, 2/6 systolic murmur LSB lungs - lungs sound clearer abd - distended/body wall edema?; NT; BS+; no caput medosa - waldrop removed ext - right leg with decreased edema R thigh, and 1-2+ edema from knee to foot on right; 1+ edema entire left leg from foot to thigh; pulses b/l feet 2+ Results & Data Results & Data Vital Signs (Past 12 Hours) Vital Signs O2 Del Method 03/26/25 08:00 Room Air PG Care Time/CCT Total # of Minutes Spent Total Time Spent with Patient: Total time spent is greater than 50% in coordination of care (as documented) at patient's floor/unit and/or counseling patient: Coding Level of Care Code 91008 SUB INP/OBS CARE 2/35MIN Diagnoses Counseling regarding advanced directives and goals of care Z71.89 Discussion about advance care planning held with family member Z71.0 Hepatic encephalopathy K76.82 Age-related osteoporosis with current pathological fracture, right femur, subsequent encounter for fracture with routine healing M80.051D Pancytopenia D61.818 ALINE (acute kidney injury) N17.9 Age related osteoporosis, unspecified pathological fracture presence M81.0 Osteoporosis type: age-related Presence of current pathological fracture: unspecified Acute postoperative pulmonary insufficiency J95.2 Anasarca R60.1 Decompensated hepatic cirrhosis K72.90; K74.60 Status cardiac pacemaker Z95.0 Acute blood loss anemia D62 B-cell lymphoma C85.10 Failure to thrive (7) Osteoporosis Osteoporosis type: age-related Presence of current pathological fracture: unspecified Qualified Code(s): M81.0 - Age-related osteoporosis without current pathological fracture
--- NOTE | 2025-03-27 12:16 | Hospitalist Progress Note ---
Date of Service March 27, 2025 Assessment & Plan (1) Palliative care by specialist: Plan: Palliative care will continue to follow for ongoing EOL pt care and family support. (2) Comfort measures only status: Plan: Per patient and family request, pt transitioned to GREASE MACHINE WORKER on 03/21/25. (3) Need for comfort care: Plan: Comfort plan of care parameters: 1. Patient/Family want hospice added to their care. 2. NO rehab/PT/OT 3. Strictly End of Life care only 4. NO escalation of care: do not increase oxygen, escalate therapies, etc. The focus is on comfort through end of life, assure this is accomplished with aggressive symptom management (i.e. relief of dyspnea, pain, etc.) 5. NO return to hospital 6. NO labs, imaging, surgery 7. Oral intake as desired for comfort and pleasure: NO dietary restriction, Allow permissive aspiration, do not withhold food or drink for concern of aspiration and allow PO for pleasure and comfort. 8. If difficulty urinating/commode/bedpan, ok to place Waldrop catheter for comfort/hygiene/skin protection AND/OR Continue Waldrop catheter for comfort/hygiene/skin protection 9. NO: calorie counts, artificial nutrition, feeding tubes or IV fluids EOL Symptom manamgement: Pain/dyspnea/tachypnea Tylenol 1000mg PO PRN for mild pain morphine 2mg IVP PRN [id number] Consider titratable morphine drip if pt requires >3 PRN doses in under two consecutive hours. Nausea/vomitting zofran 4mg IVP q4h PRN Agitation ativan 0.5mg IVP q4h PRN Hyperactive delirium haldol 5mg IVP q6h PRN Secretions - if repositioning not effective robinul 0.4mg IV q4h PRN atropine SL 3 drops Q1h PRN Nursing care: Discontinue all medications not directed towards comfort. Detether pt from IV tubing, monitor cables, and check vitals once per shift. Please continue HFNC and titrate down as able for patient comfort. Use medications a deanna PRN for dyspnea/tachypnea and do not increase oxygen once titrated down. Assess q1h for pain/dyspnea and treat accordingly. Plan Pt transitioned to GREASE MACHINE WORKER yesterday, he is comfortable with minimal requirement for PRN medications. Pt to be discharged to [facility] for ongoing hospice care. Admission and Anticipated Discharge Date Admission Date: March 02, 2025 Subjective appears comfortable. no symptoms now GREASE MACHINE WORKER Review of Systems Review of Systems: CV - no cp pulm - no cough GI - no N/V musculo - R hip pain Physical Exam Physical Exam: gen - looks chronically unwell, no longer confused. mouth - MMM heart - RRR, s1 s2, 2/6 systolic murmur LSB lungs - lungs sound clearer abd - distended/body wall edema?; NT; BS+; no caput medosa - waldrop removed ext - right leg with decreased edema R thigh, and 1-2+ edema from knee to foot on right; 1+ edema entire left leg from foot to thigh; pulses b/l feet 2+ PG Care Time/CCT Total # of Minutes Spent Total Time Spent with Patient: Total time spent is greater than 50% in coordination of care (as documented) at patient's floor/unit and/or counseling patient: Coding Level of Care Code 58258 SUB INP/OBS CARE 2/35MIN Diagnoses Palliative care by specialist Z51.5 Comfort measures only status Z51.5 Need for comfort care
--- NOTE | 2025-03-28 11:28 | Hospitalist Progress Note ---
Date of Service March 28, 2025 Assessment & Plan (1) Palliative care by specialist: Plan: Palliative care will continue to follow for ongoing EOL pt care and family support. (2) Comfort measures only status: Plan: Per patient and family request, pt transitioned to [facility] on 03/21/25. (3) Need for comfort care: Plan: Comfort plan of care parameters: 1. Patient/Family want hospice added to their care. 2. NO rehab/PT/OT 3. Strictly End of Life care only 4. NO escalation of care: do not increase oxygen, escalate therapies, etc. The focus is on comfort through end of life, assure this is accomplished with aggressive symptom management (i.e. relief of dyspnea, pain, etc.) 5. NO return to hospital 6. NO labs, imaging, surgery 7. Oral intake as desired for comfort and pleasure: NO dietary restriction, Allow permissive aspiration, do not withhold food or drink for concern of aspiration and allow PO for pleasure and comfort. 8. If difficulty urinating/commode/bedpan, ok to place Waldrop catheter for comfort/hygiene/skin protection AND/OR Continue Waldrop catheter for comfort/hygiene/skin protection 9. NO: calorie counts, artificial nutrition, feeding tubes or IV fluids EOL Symptom manamgement: Pain/dyspnea/tachypnea Tylenol 1000mg PO PRN for mild pain morphine 2mg IVP PRN [id number] Consider titratable morphine drip if pt requires >3 PRN doses in under two consecutive hours. Nausea/vomitting zofran 4mg IVP q4h PRN Agitation ativan 0.5mg IVP q4h PRN Hyperactive delirium haldol 5mg IVP q6h PRN Secretions - if repositioning not effective robinul 0.4mg IV q4h PRN atropine SL 3 drops Q1h PRN Nursing care: Discontinue all medications not directed towards comfort. Detether pt from IV tubing, monitor cables, and check vitals once per shift. Please continue HFNC and titrate down as able for patient comfort. Use medications a deanna PRN for dyspnea/tachypnea and do not increase oxygen once titrated down. Assess q1h for pain/dyspnea and treat accordingly. Plan Pt transitioned to [facility] yesterday, he is comfortable with minimal requirement for PRN medications. Pt to be discharged to [facility] for ongoing hospice care. Admission and Anticipated Discharge Date Admission Date: March 02, 2025 Subjective appears comfortable. no symptoms now [facility] Review of Systems Review of Systems: CV - no cp pulm - no cough GI - no N/V musculo - R hip pain Physical Exam Physical Exam: gen - looks chronically unwell, no longer confused. mouth - MMM heart - RRR, s1 s2, 2/6 systolic murmur LSB lungs - lungs sound clearer abd - distended/body wall edema?; NT; BS+; no caput medosa - waldrop removed ext - right leg with decreased edema R thigh, and 1-2+ edema from knee to foot on right; 1+ edema entire left leg from foot to thigh; pulses b/l feet 2+ PG Care Time/CCT Total # of Minutes Spent Total Time Spent with Patient: Total time spent is greater than 50% in coordination of care (as documented) at patient's floor/unit and/or counseling patient: Coding Level of Care Code 26005 SUB INP/OBS CARE 2/35MIN Diagnoses Palliative care by specialist Z51.5 Comfort measures only status Z51.5 Need for comfort care
--- NOTE | 2025-03-29 11:44 | Discharge Summary ---
Discharge Summary Date of Service March 29, 2025 Case management tells me arrangements have been made including transportation and the patient will leave today around noon for hospice Principal Dx & Hospital Course #1 = Principal Diagnosis (1) Palliative care by specialist: Palliative care will continue to follow for ongoing EOL pt care and family support. (2) Comfort measures only status: Per patient and family request, pt transitioned to [facility] on 03/21/25. (3) Need for comfort care: Comfort plan of care parameters: 1. Patient/Family want hospice added to their care. 2. NO rehab/PT/OT 3. Strictly End of Life care only 4. NO escalation of care: do not increase oxygen, escalate therapies, etc. The focus is on comfort through end of life, assure this is accomplished with aggressive symptom management (i.e. relief of dyspnea, pain, etc.) 5. NO return to hospital 6. NO labs, imaging, surgery 7. Oral intake as desired for comfort and pleasure: NO dietary restriction, Allow permissive aspiration, do not withhold food or drink for concern of aspiration and allow PO for pleasure and comfort. 8. If difficulty urinating/commode/bedpan, ok to place Waldrop catheter for comfort/hygiene/skin protection AND/OR Continue Waldrop catheter for comfort/hygiene/skin protection 9. NO: calorie counts, artificial nutrition, feeding tubes or IV fluids EOL Symptom manamgement: Pain/dyspnea/tachypnea Tylenol 1000mg PO PRN for mild pain morphine 2mg IVP PRN [id number] Consider titratable morphine drip if pt requires >3 PRN doses in under two consecutive hours. Nausea/vomitting zofran 4mg IVP q4h PRN Agitation ativan 0.5mg IVP q4h PRN Hyperactive delirium haldol 5mg IVP q6h PRN Secretions - if repositioning not effective robinul 0.4mg IV q4h PRN atropine SL 3 drops Q1h PRN Nursing care: Discontinue all medications not directed towards comfort. Detether pt from IV tubing, monitor cables, and check vitals once per shift. Please continue HFNC and titrate down as able for patient comfort. Use medications above PRN for dyspnea/tachypnea and do not increase oxygen once titrated down. Assess q1h for pain/dyspnea and treat accordingly. Plan Pt transitioned to [facility] yesterday, he is comfortable with minimal requirement for PRN medications. Pt to be discharged to [facility] for ongoing hospice care. Admission HPI Per Admitting Provider Mr. Hi is an 84 y.o. M with past medical history of high degree AV block, ex- smoker, s/p pacemaker for trifascicular heart block, liver lesions presents to the hospital due to fall. States around 2pm today, he was using his walker and trying to sit on his chair. He placed a pee pad on the chair before sitting. States he misjudged the distance between himself and the chair and slipped on the pee pad onto the floor on his right help. He was not able to get up due to lack of strength, and had to call EMS. Denies hitting his head. Denies CP, SOB, dizziness prior to fall. He has had a few falls in the past year. Reports this fall was all mechanical. At this moment, patient is not having SOB, CP, AP, N/V, fevers, chills, cough. Patient states he will sometimes have SOB on exertion but this is baseline for him for past few years. States it will sometimes occur when walking a few feet. Reports SOB has been stable and non- worsening over the past few years. Denies history of asthma or COPD and is not on oxygen at home. No other acute complaints. Discharge Exam gen - looks chronically unwell, no longer confused. mouth - MMM heart - RRR, s1 s2, 2/6 systolic murmur LSB lungs - lungs sound clearer abd - distended/body wall edema?; NT; BS+; no caput medosa - waldrop removed ext - right leg with decreased edema R thigh, and 1-2+ edema from knee to foot o n right; 1+ edema entire left leg from foot to thigh; pulses b/l feet 2+ Discharge Plan Discharge Items Patient Disposition: Hospice - Home Reason For Visit: FALL Discharge Diagnosis: fall Condition on Discharge: Fair Activity: Resume your previous activity Non-emergency contact: Primary Care Provider Call non-emergency contact if: you have any medication questions, your symptoms worsen and you have a fever Follow-up/Referrals: Layton Hernández MD [Physician] - 04/11/25 9:30 am Bassem Winters MD [Primary Care Provider] - Diet: Regular Addtl Attending Provider Instructions: follow up with primary doctor Addtl Chronic Care Nurse Provider Instructions: Orthopedic discharge instructions Weightbearing as tolerated with walker and max assist Dressing may be reinforced and change as needed OK to get incisions wet in the shower but no submerging. Steri strips will fall off in about 7-10 days after application. Do not submerge wounds in water until you see Dr. Hernández at next appointment. Can cover any fracture blisters with a dry dressing Continue with icing as needed. Elevate leg for swelling. Pain control and DVT prophylaxis per primary service PT/OT - range of motion as tolerated Follow-up as scheduled with Dr. Hernández, appointment listed. Please contact our office sooner with any questions or concerns at [phone] Pending Studies at Discharge: No Stand-Alone Forms: My [facility] Medications and DC Order Prescriptions: New midodrine 10 mg Tablet 10 mg PO TID@0800,1200,1700 Qty: 30 0RF Continued Centrum Silver 0.4 mg-300 mcg- 250 mcg Tablet 1 tab PO DAILY folic acid 1 mg Tablet 1 mg PO QAM Qty: 30 0RF thiamine HCl (vitamin B1) 100 mg tablet 100 mg PO QAM spironolactone 25 mg tablet 25 mg PO QAM calcium carbonate 600 mg calcium (1,500 mg) Tablet 600 mg PO BIDM azelastine 137 mcg (0.1 %) spray,non-aerosol 1 spray INTRANASAL [facility] triamcinolone acetonide 0.5 % cream 1 applic TOPICAL BID Rx Instructions: apply to affected area furosemide 40 mg tablet 80 mg PO QAM potassium 99 mg Tablet 99 mg PO Q OTHER DAY Admission Data Admit Date/Time: 03/02/25 18:29 Attending Provider: Rei Sloo Admit Provider: Yara Colin Primary Care Provider: Bassem Winters Other Providers: Demetria Joe; Layton Hernández; Ryder Cannon; Estelle Vallejo; Demetria Schneider at [facility] Stay Data Consultations 03/02/25 16:47 Consult Orthopedic Surgery Routine 03/02/25 17:12 ED Decision to Admit Stat 03/17/25 10:43 Consult Palliative Care Routine Procedures Performed Operation Date: 03/03/25 09:10 Actual Procedures p Right Long Troch Nail(Right) - Layton Hernández MD Diagnostic Imagining Performed 03/02/25 18:55 CT chest without contrast [CT chest diagnostic wo con] Routine 03/03/25 FL hip RT 2-3V Routine 03/07/25 12:35 CT liver wo/w con Routine 03/10/25 10:04 US abdomen ltd ascites Urgent 03/15/25 13:39 US venous doppler LE RT Routine 03/20/25 18:05 CT angio chest PE protocol Routine Pending Results Patient Have Any Pending Studies at Discharge: No Discharge Instructions Given to Patient (Per Discharging Provider) follow up with primary doctor Total Time Total Time Spent Total Time Spent (In Minutes): 25 Coding Level of Care Code 19603 INP/OBS DISCH >30 MIN Diagnoses Palliative care by specialist Z51.5 Comfort measures only status Z51.5 Need for comfort care
[2025-03-29 12:19] VITALS: BP 117/53; PULSE 83
--- NOTE | 2025-03-30 08:49 | Coding Query ---
CODING QUERY To promote full compliance with coding requirements relating to patient care, provider participation is requested in all cases of insurance coder uncertainty. Please assist us with the question(s) below: Coding Question(s): There is documentation through the record of Pulmonary Edema, such as on the 03/07 Hospitalist Progress Note of, "#acute post-op pulmonary insufficiency - -suspect 2nd to pulmonary edema", and,, "#cirrhosis - decompensated/advanced - -2nd to h/o etoh abuse? -advanced; previous CT a/p in 2022 with esophageal varices, splenomegaly, etc. -markedly decompensated with pulmonary edema/anasarca -typically takes 80mg of PO lasix at home -s/p lasix 20mg IV x 1 yesterday with good response -repeat lasix IV again today". Please specify further below, in your clinical opinion, regarding Pulmonary Edema: ( x ) most likely Acute Pulmonary Edema ( ) most likely Chronic Pulmonary Edema, or Unknown/Unspecified Pulmonary Edema ( ) most likely Other Pulmonary Edema type/acuity - Please Specify Physician's Response(s): Thank you Starla Rodriguez Principal Diagnosis: "that condition established after study, to be chiefly responsible for occasioning the admission of the patient to the hospital for care." Co-Existing Principal Diagnosis: "when two or more diagnoses equally meet the criteria for principal diagnosis as determined by the circumstances of admission, diagnostic work up, and/or therapy provided, and the Alphabetic Index, Tabular List, or another coding guideline does not provide sequencing direction, any one of the diagnoses may be sequenced first." "When the physician has documented what appears to be a current diagnosis in the body of the record, but has not included the diagnosis in the final diagnostic statement, the physician should be asked whether the diagnosis should be added." (Source Coding [facility] 2 QTR90. p3-4) STARLA
--- NOTE | 2025-03-30 08:58 | Coding Query ---
To promote full compliance with coding requirements relating to patient care, provider participation is requested in all cases of medical records coder uncertainty. Please assist us with the question(s) below: Coding Question(s): The diagnosis below was documented in the 03/05 Hospitalist Progress Note, then subsequently fell off all further documentation. Please indicate if it is still a possible diagnosis or ruled out. Physician's Response(s): Low Grade Hypovolemic Shock - (documentation on the 03/05 Hospitalist Progress Note) ( x ) Diagnosed -- hypovolemic shock 2nd to acute blood loss anemia ( ) Ruled out ( ) Other (please specify) MTDD
== END 2025-03-29 13:15 | disposition hospice, home (50) | DRG 480 ==
LOC: ED 15:31 → SUATTDRO 18:29 → EDINP 18:29 → 3N 20:38 → 3E 03-21 10:54